=== PATIENT | female | born 1945 | race Caucasian/White ===

== ENCOUNTER → 2017-12-20 12:04 | Outpatient (CLI) | payer MEDICARE, SELFPAY | PROVIDERS: PCP Family Medicine; Visit Provider Surgery | DX: R19.4 Change in bowel habit (principal) | CPT/HCPCS: 99213 ==

== ENCOUNTER 2018-01-02 09:30 | Outpatient (RCR) | payer MEDICARE, SELFPAY ==
--- NOTE | 2017-12-05 09:45 | PTTR_ITS ---
DATE: 12/05/17 SUBJECTIVE: Ivet states that she's been feeling really good. She was able to spend the day at [facility] with her grandkids, and did not notice any fatigue or pain. She did have a difficult night, and had to take Tylenol for her pain. She continues to be unable to sleep in her bed due to discomfort. Compliant with HEP: x Yes No OBJECTIVE: Manual therapy: ([id number]). Patient received mobilization into knee extension, beginning with gentle overpressure and patella mobilizations. She received HS stretching and grade III PA tibiofemoral joint mobs, followed by further overpressure into extension. She's able to maintain about -2-3 degrees, and tolerates 0 with overpressure. Therapeutic procedures ([id number]). * x HEP review: * x See flow sheet: * x Provided skilled instruction in proper exercise performance: Progressed to addition of 2# med ball to squats, where she completed 2 sets of 10 with need for intermittent cues. She was also instructed in hip AB with use of Airex pad for proprioceptive retraining. * x Provided skilled manual cues to facilitate proper muscle recruitment and/ or movement pattern: Direct treatment time: 30 minutes Total treatment time: additional time spent with Elli Washington PTA
--- NOTE | 2017-12-05 09:53 | PTTR_ITS ---
DATE: 12/05/17 OBJECTIVE: Co treatment with Farhana Cordova DPT. Please see her note for specifics. Therapeutic procedures ([id number]). * X See flow sheet: Continued pt's LE strengthening program for knee rehab. No changes today per PT's instruction. * X Provided skilled instruction in proper exercise performance: Pt demonstrates good form. Minimal cueing for adjustment to technique. Direct treatment time: 15 minutes Total treatment time: 15 minutes
--- NOTE | 2017-12-10 12:09 | PTTR_ITS ---
DATE: 12/10/17 SUBJECTIVE: Pt reports feeling pretty good. OBJECTIVE: Therapeutic procedures ([id number]). * X HEP review: Pt reports that she has been practicing reciprocal stairs at home, as well as hip PRE's at her kitchen counter. * X See flow sheet: Continued LE strengthening including TKE, squats. * X Provided skilled instruction in proper exercise performance. * X Provided skilled manual cues to facilitate proper muscle recruitment and/ or movement pattern. * X Other: Pt to see Farhana Cordova DPT, in 7-10 days. Pt wants to discuss potentially beginning MSP in the clinic gym. Direct treatment time: 30 minutes Total treatment time: 30 minutes
--- NOTE | 2017-12-20 09:00 | PTTR_ITS ---
DATE: 12/20/17 SUBJECTIVE: Ivet states that her knee is feeling really good. She continues to struggle with sleeping, stating she cannot get comfortable in bed. She has been continuing with her exercise program, which she states is going well. Manual therapy: ([id number]). Ivet lacks approximately 5 degrees of knee extension. Her knee flexion usually allows 120. She has mild restriction of the patella mobility, particularly with superior glides. She received sustained stretching to the hamstrings and gastroc as well as manual over pressure into knee extension. She received grade 3 PA mobilizations all with excellent tolerance. We discuss appropriate treatment planning and goals and patient would like to transition to a minimally supervised program (MSP) prior to discharge with consideration of independent program in 3 weeks. She completed wellness with manufacturing support engineer non-billable time with instruction in appropriate set up for all activities. Will complete MSP 2x a for 3 weeks, then follow up with me for anticipated discharge at which point we can likely transition her to an independent program. We also reviewed self stretching techniques for extension and altered positions which she will attempt at home. Direct treatment time: 30 mins Total treatment time: 60 mins SS/dl
--- NOTE | 2018-01-02 08:50 | PTTR_ITS ---
DATE: 01/02/18 SUBJECTIVE: Ivet states that her knee has been really painful and she continues to struggle with sleeping and subsequently pulled out an old brace that she had. She has a patella stabilization brace with her with circumferential tabs around the patella. She states that the pressure from the tabs cause her a great deal of discomfort which has persisted since a few days ago. She references the pes anserine bursa region of the (R) knee and she reports that she is very discouraged by the progress and her inability to sleep. OBJECTIVE: Manual therapy: ([id number]). She only lacks about 5* of knee extension on the (R ), her flexion is full and pain free. Patella mobility is normal she is point tender at the pes anserine bursa on the (R). She received manual stretching to the hamstrings as well as grade 2 AP And PA tibial femoral joint mobilizations and patella mobs. She received sustained stretching into extension and with manual over pressure she is able to tolerate full knee extension. We discussed appropriate tx planning and goals and pt was encouraged to continue with MSP program 2x per week which she is in agreement with. We will have her complete that for 3 more weeks and we will follow with her at that time for re eval and progressions. Direct treatment time: 30 minutes Total treatment time: 30 minutes
== END 2018-01-03 23:59 | disposition home or self-care (01) ==
LOC: PT 09:30
PROVIDERS: PCP Family Medicine; Referring Provider Orthopaedic Surgery; Visit Provider Orthopaedic Surgery
DX: Z47.1 Aftercare following joint replacement surgery (principal); Z96.651 Presence of right artificial knee joint
CPT/HCPCS: 97110; 97140

== ENCOUNTER 2018-01-09 07:31 | Day surgery (SDC) | payer MEDICARE, SELFPAY ==
--- NOTE | 2018-01-09 07:11 | W.PM.DSUDISC ---
Discharge Plan Discharge Details Reason For Visit: CHANGE IN BOWEL HABITS Attending Provider: Jory King Primary Care Provider: Leeanne Schultz V Disposition Patient Disposition: HOME Condition: Fair Home Meds and New Rx's Prescriptions: Continue albuterol sulfate 2.5 MG/3 ML solution for nebulization 2.5 mg Inhalation [id number] Qty: 1 RF: 3 levothyroxine [Synthroid] 150 MCG tablet 150 mcg PO DAILY RF: 0 azelastine 137 MCG/0.137 ML aerosol,spray 2 spry NS BID RF: 0 estradiol [Climara] 1 EACH patch weekly 1 ea Transdermal RF: 0 budesonide-formoterol [Symbicort] 10.2 GM HFA aerosol inhaler 2 puff Inhalation BID RF: 0 PROVENTIL HFA 18 GM HFA.AER.AD 2 puff Inhalation Q6H PRN RF: 0 citalopram [Celexa] 40 MG tablet 40 mg PO .HS RF: 0 amlodipine 5 MG tablet 5 mg PO DAILY RF: 0 zolpidem 5 MG tablet 5 mg PO .HS RF: 0 bupropion HCl 300 MG tablet extended release 24 hr 300 mg PO DAILY RF: 0 clonazepam [Klonopin] 0.5 MG tablet 0.5 mg PO PRN PRNRF: 0 Discontinued bisacodyl [Bisa-Lax] 5 MG tablet,delayed release (DR/EC) 5 mg PO as directed Qty: 4 RF: 0 polyethylene glycol 3350 255 GM powder 255 gm PO as directed for colo Qty: 255 RF: 0 Discharge Instructions Instructions: Colonoscopy (DC) Additional Instructions: Findings: 1 polyp Follow up: depends on final pathology Diet: high fiber diet New Medications: none Please call if you develop: fevers >101.5 Nausea or Vomiting Abdominal pain that is not transient 1. Because there will be medication in your system for the next 24 hours, you may feel a little sleepy. Your coordination will be affected. Therefore: a. Do not drive or operate dangerous equipment for 24 hours. b. Do not drink alcohol beverages for 24 hours (not even beer). c. Plan to go home and rest for the day. 2. Generally there are no restrictions on your activity after a day or so has gone by, but you may feel a bit fatigued for a few days. 3 After you arrive home you may have a light meal and return to a normal diet as you can tolerate it without feeling sick to your stomach. 4. After surgery, you may feel pain or discomfort. This should be only transient, but if it persists please contact your doctor. 5. If there are any questions regarding the findings of your procedure, please feel free to contact your doctor. 6. If you are unable to contact your doctor with a problem, contact the hospital at [phone]. 7. Continue all your regular medications unless directed otherwise. I understand the above instructions and have no questions. Signature of Patient or Responsible Adult Escort Date/Time Name of Responsible Adult Escort Signature of Nurse Date/Time Activity:: Activity as Tolerated Diet:: As Tolerated Discharge Orders Discharge Orders: Discharge Order (Routine); Ordered 01/09/18 Ordered By: Jory King
--- NOTE | 2018-01-09 07:14 | PDOC.DSDIS_ITS ---
Discharge Plan Discharge Details Reason For Visit: CHANGE IN BOWEL HABITS Attending Provider: Jory King Primary Care Provider: Leeanne Schultz V Disposition Patient Disposition: HOME Condition: Fair Home Meds and New Rx's Prescriptions: Continue albuterol sulfate 2.5 MG/3 ML solution for nebulization 2.5 mg Inhalation [id number] Qty: 1 RF: 3 levothyroxine [Synthroid] 150 MCG tablet 150 mcg PO DAILY RF: 0 azelastine 137 MCG/0.137 ML aerosol,spray 2 spry NS BID RF: 0 estradiol [Climara] 1 EACH patch weekly 1 ea Transdermal RF: 0 budesonide-formoterol [Symbicort] 10.2 GM HFA aerosol inhaler 2 puff Inhalation BID RF: 0 PROVENTIL HFA 18 GM HFA.AER.AD 2 puff Inhalation Q6H PRN RF: 0 citalopram [Celexa] 40 MG tablet 40 mg PO .HS RF: 0 amlodipine 5 MG tablet 5 mg PO DAILY RF: 0 zolpidem 5 MG tablet 5 mg PO .HS RF: 0 bupropion HCl 300 MG tablet extended release 24 hr 300 mg PO DAILY RF: 0 clonazepam [Klonopin] 0.5 MG tablet 0.5 mg PO PRN PRNRF: 0 Discontinued bisacodyl [Bisa-Lax] 5 MG tablet,delayed release (DR/EC) 5 mg PO as directed Qty: 4 RF: 0 polyethylene glycol 3350 255 GM powder 255 gm PO as directed for colo Qty: 255 RF: 0 Discharge Instructions Instructions: Colonoscopy (DC) Additional Instructions: Findings: 1 polyp Follow up: depends on final pathology Diet: high fiber diet New Medications: none Please call if you develop: fevers >101.5 Nausea or Vomiting Abdominal pain that is not transient 1. Because there will be medication in your system for the next 24 hours, you may feel a little sleepy. Your coordination will be affected. Therefore: a. Do not drive or operate dangerous equipment for 24 hours. b. Do not drink alcohol beverages for 24 hours (not even beer). c. Plan to go home and rest for the day. 2. Generally there are no restrictions on your activity after a day or so has gone by, but you may feel a bit fatigued for a few days. 3 After you arrive home you may have a light meal and return to a normal diet as you can tolerate it without feeling sick to your stomach. 4. After surgery, you may feel pain or discomfort. This should be only transient , but if it persists please contact your doctor. 5. If there are any questions regarding the findings of your procedure, please feel free to contact your doctor. 6. If you are unable to contact your doctor with a problem, contact the hospital at [phone]. 7. Continue all your regular medications unless directed otherwise. I understand the above instructions and have no questions. Signature of Patient or Responsible Adult Escort Date/Time Name of Responsible Adult Escort Signature of Nurse Date/Time Activity:: Activity as Tolerated Diet:: As Tolerated Discharge Orders Discharge Orders: Discharge Order (Routine); Ordered 01/09/18 Ordered By: Jory King
[2018-01-09 07:53] VITALS: BP 131/77; PULSE 80; RESP 16; TEMP 36.5; O2SAT 99
[2018-01-09] MEDS: Lactated Ringers 1,000 ML 80 ML IV (08:00)
--- NOTE | 2018-01-09 08:31 | W.COLOREPORT ---
Colonoscopy Report Date of procedure: 01/09/18 Pre-op diagnosis general: Change in bowel habits Post-op diagnosis procedure note: other (transverse colon polyp) Procedure: Colonoscopy with polypectomy Anesthesia proc note operative: MAC Estimated blood loss (mL): 3 Pathology: other (transverse colon polyp) Complications: None Disposition: same day Indications: changes in bowel habits Prep: Miralax Procedure Start Time: 08:40 Procedure End Time: 09:09 Retraction Time: 15 minutes Findings: One polyp in the transverse colon Procedure Description: After informed consent was obtained the patient was taken to the procedure room and placed in the left decubitus position. Monitors were applied and a timeout was done. The patient's name date of procedure type allergies medications and metal in her body were all reviewed. Patient was then sedated. Once sedated and comfortable the rectal exam was done. External exam was normal. Internal exam revealed a normal sphincter tone and no palpable masses. The scope was then introduced and retroflexed no internal hemorrhoids were noted. The scope was straightened and advanced to the cecum. The patient did have a very tortuous colon. After applying pressure to her abdomen I was able to get the scope into the cecum. The TI and appendiceal orifice were both identified. The prep was adequate. The colonoscope was retracted all the way back into the rectum and removed. One pedunculated polyp was removed in the proximal transverse colon. The patient tolerated the procedure well and she was taken back to same day surgery in stable condition. There were no immediate complications.
--- NOTE | 2018-01-09 09:00 | BOWEL_PTH ---
PATIENT: Leeanne Bush LOC: [facility] U#:[id number] AGE/SX: 72/F ROOM: RE01/09/[address]: Jory King MD : 1945 BED: DIS: 01/09/2018 SPEC #: [id number] RECD: 01/09/18 13:01 STATUS: AAMIR REBre #: [id number] YUNG: 01/09/18 09:[address]: Jory King DEPT: Surgical Specimen RECD BY: Dorothea Mark ENTERED: 01/09/18 13:02 SP TYPE: Bowel OTHR DR: Leeanne Schultz V Tissues: 1 - BIOPSY BOWEL Procedures: GROSS AND MICRO LEVEL 4 Comments: [id number]
--- NOTE | 2018-01-09 09:44 | DI.RAD_ITS ---
SYMPTOM/DIAGNOSIS: ABD PAIN AFTER COLONOSCOPY, ? PERFORATION PORTABLE AP CHEST: Comparison is made with 03/13/14. The heart size is normal. The lungs show minimal scarring at the left base. No free air is seen beneath the diaphragm. No infiltrate or pneumothorax is present. IMPRESSION: Minimal left basilar scarring. No acute abnormality, FLAT AND DECUBITUS VIEWS OF THE ABDOMEN: Comparison is made with 09/18/09. The patient is status post colonoscopy. The colon is distended with air. No free air is identified. IMPRESSION: Colonic distension status post colonoscopy.
[2018-01-09 09:45] VITALS: BP 164/97; PULSE 80; RESP 22; TEMP 36; O2SAT 100
[2018-01-09] MEDS: Hyoscyamine 0.125 MG SL/ORAL/CHEW (09:47)
[2018-01-09] MEDS: Ketorolac 15 MG/ML VIAL IVP (10:02)
[2018-01-09 10:16] VITALS: BP 141/85; PULSE 76; RESP 18; TEMP 36; O2SAT 98
== END 2018-01-09 10:55 | disposition home or self-care (01) ==
LOC: SUR 07:31
PROVIDERS: PCP Family Medicine; Visit Provider Surgery
PROC: 0DJD8ZZ Inspection of Lower Intestinal Tract, Via Natural or Artificial Opening Endoscopic (ICD-10-PCS; CPT 45378; principal; 2018-01-09 08:20)
DX: R19.4 Change in bowel habit (principal); K63.5 Polyp of colon; K51.40 Inflammatory polyps of colon without complications; J44.9 Chronic obstructive pulmonary disease, unspecified; I10 Essential (primary) hypertension
CPT/HCPCS: 45380; 88305; 71045; 74019; J1885; J3490

== ENCOUNTER → 2018-01-09 08:14 | Outpatient (BNVA) | payer MEDICARE, SELFPAY | PROVIDERS: PCP Family Medicine; Visit Provider Surgery | DX: R19.4 Change in bowel habit (principal); K63.5 Polyp of colon; K51.40 Inflammatory polyps of colon without complications; J44.9 Chronic obstructive pulmonary disease, unspecified; I10 Essential (primary) hypertension ==

== ENCOUNTER 2018-01-10 08:18 | Inpatient (IN) | payer MEDICARE, SELFPAY ==
[2018-01-10 08:23] VITALS: BP 133/67; PULSE 84; RESP 16; TEMP 36.5; O2SAT 100
--- NOTE | 2018-01-10 08:26 | W.ED.GENAD ---
Discharge Plan Disposition Patient Disposition: [facility] Discharge Details Chief Complaint: GI Bleed Clinical Impression: Intra-abdominal free air of unknown etiology Reason For Visit: ABDOMINAL FREE AIR Admit Date/Time: 01/10/18 11:13 Admit Provider: Atul Sharpe Attending Provider: Atul Sharpe Primary Care Provider: Leeanne Schultz V ED Provider: Arnaldo Jackson Discharge Data Discharge Date/Time-TO BE ENTERED AT DEPARTURE: 01/10/18 11:56 Medical Decision Making MDM Narrative Medical decision making narrative: 72-year-old female presents with abdominal pain and bright red blood per rectum following colonoscopy with polypectomy yesterday. She is afebrile, essentially well-appearing and normotensive. She is somewhat tender in her abdomen. IV placed, labs obtained, patient referred for initial abdominal flat plate x-ray, CT of the abdomen and pelvis. Reviewed yesterday's chart and x-ray. Patient reviewed with Dr. Araujo. There is no evidence of free air. Patient was referred for CT images which does reveal free air surrounding the colon without evidence of abscess or fluid collection. Case discussed with on-call surgeon, Dr Sharpe, who agrees of antibiotics, admission. Patient is hemodynamically stable. Discussed plan with patient and her . Patient be admitted. Medical Records Medical records reviewed: Yes I reviewed the patient's medical records. Lab Data Lab results reviewed: Yes I reviewed the patient's lab results. ECG Data Attestation: I personally reviewed and interpreted this ECG (s) as follows: Interpretation: Normal sinus rhythm, rate of 74, QRS narrow, no ST segment elevation present HPI - General Adult General Mode of arrival: ambulatory. Date/Time Provider Initiated Documentation: 01/10/18 08:25. Limitations to Documentation: no limitations. Information obtained by: patient. History of Present Illness 72 year old F presents to the emergency department with the chief complaint of Abdominal pain and rectal bleed, described as moderate, Quality is described as dull and constant, and is localized to the abdomen. Patient started experiencing this hour(s) and it has been constant. No relieving factors improve symptom(s), No exacerbating factors reported . HPI Narrative: 72-year-old female presents with abdominal pain and rectal bleeding status post colonoscopy with single polypectomy in the transverse colon yesterday with Dr. King. She states that she had post procedure abdominal pain that required analgesia and for which she had postprocedure x-rays. She went home and states that she is has had constant, upper and abdominal pain since the procedure. Associated with tenesmus last night and an episode early this morning of bright red blood, 1 cup per rectum. This is followed by 3 further episodes of bright red blood per rectum. She has not had weakness, lightheadedness, syncope. She states that she has otherwise recently been well. No current anticoagulate Related Data Home Medications Medication Instructions Recorded Confirmed amlodipine 5 mg PO DAILY 01/22/13 01/10/18 bupropion HCl 300 mg PO DAILY 01/22/13 01/10/18 citalopram [Celexa] 40 mg PO .HS 01/22/13 01/10/18 zolpidem 5 mg PO .HS 01/22/13 01/10/18 clonazepam [Klonopin] 0.5 mg PO PRN PRN 03/13/14 01/10/18 Proventil Hfa 2 puff INHALATION Q6H PRN inhaler 11/22/17 01/10/18 NS albuterol sulfate 2.5 mg INHALATION [id number] #1 vial 11/22/17 01/10/18 NS azelastine 2 spry NS BID spray NS 11/22/17 01/10/18 budesonide-formoterol [Symbicort] 2 puff INHALATION BID inhaler NS 11/22/17 01/10/18 estradiol [Climara] 1 ea TRANSDERMAL DIRECTED 11/22/17 01/10/18 script NS levothyroxine [Synthroid] 150 mcg PO DAILY tab-cap NS 11/22/17 01/10/18 Allergies Allergy/AdvReac Type Severity Reaction Status Date / Time iopamidol AdvReac Intermediate Anaphylaxsi Unverified 01/10/18 08:32 s montelukast sodium AdvReac Intermediate Headache Unverified 01/10/18 08:32 [From Diannair] morphine AdvReac Intermediate Cardiac Unverified 01/10/18 08:32 Dysrythmia nitrofurazone AdvReac Mild Nausea Unverified 01/10/18 08:32 shrimp Allergy Severe Anaphylaxsi Uncoded 01/10/18 08:32 s Review of Systems Review of Systems 8 systems reviewed, otherwise negative PFSH Family History Other Constipation Medical History Abnormal finding on EKG Anxiety Depression Facial paresthesia Female bladder prolapse Fibromyalgia Hearing loss History of IBS Hypothyroid Insomnia Malignant melanoma Social History Smoking/Tobacco Use Status: Former Tobacco Use Surgical History Abdominal hysterectomy Arthroscopy, Shoulder Bladder Surgery Colonoscopy - MAC Replacement of total knee joint Exam Const General: cooperative, healthy appearing and comfortable Orientation: alert and awake Eyes General: appearance normal, both eyes and all related structures Visual Meredith: normal visual meredith by confrontation Chest Chest: normal inspection of the chest and normal palpation of entire chest wall Resp Effort & Inspection: normal respiratory effort and able to speak in complete sentences Auscultation: clear to auscultation bilaterally Cardio Rate: regular rate Rhythm: regular rhythm Heart Sounds: S1 normal and S2 normal GI Inspection: normal to inspection Palpation: soft and tender Rectal Exam - female: other (No masses. No active bleeding. There is violaceous blood that is guaiac positive.) Skin General skin exam: no rashes or lesions noted and elasticity normal Neuro General: alert, awake and oriented x3 Extrem General: normal to inspection and full ROM
--- NOTE | 2018-01-10 08:29 | ED.GENADUL_ITS ---
Discharge Plan Disposition Patient Disposition: [facility] INPATIENT Discharge Details Chief Complaint: GI Bleed Clinical Impression: Intra-abdominal free air of unknown etiology Reason For Visit: ABDOMINAL FREE AIR Admit Date/Time: 01/10/18 11:13 Admit Provider: Atul Sharpe Attending Provider: Atul Sharpe Primary Care Provider: Leeanne Schultz V ED Provider: Arnaldo Jackson Discharge Data Discharge Date/Time-TO BE ENTERED AT DEPARTURE: 01/10/18 11:56 Medical Decision Making MDM Narrative Medical decision making narrative: 72-year-old female presents with abdominal pain and bright red blood per rectum following colonoscopy with polypectomy yesterday. She is afebrile, essentially well-appearing and normotensive. She is somewhat tender in her abdomen. IV placed, labs obtained, patient referred for initial abdominal flat plate x- ray, CT of the abdomen and pelvis. Reviewed yesterday's chart and x-ray. Patient reviewed with Dr. Araujo. There is no evidence of free air. Patient was referred for CT images which does reveal free air surrounding the colon without evidence of abscess or fluid collection. Case discussed with on-call surgeon, Dr Sharpe, who agrees of antibiotics, admission. Patient is hemodynamically stable. Discussed plan with patient and her . Patient be admitted. Medical Records Medical records reviewed: Yes I reviewed the patient's medical records. Lab Data Lab results reviewed: Yes I reviewed the patient's lab results. ECG Data Attestation: I personally reviewed and interpreted this ECG (s) as follows: Interpretation: Normal sinus rhythm, rate of 74, QRS narrow, no ST segment elevation present HPI - General Adult General Mode of arrival: ambulatory . Date/Time Provider Initiated Documentation: 01/10/18 08:25 . Limitations to Documentation: no limitations . Information obtained by: patient . History of Present Illness 72 year old F presents to the emergency department with the chief complaint of Abdominal pain and rectal bleed, described as moderate, Quality is described as dull and constant, and is localized to the abdomen. Patient started experiencing this hour(s) and it has been constant. No relieving factors improve symptom(s), No exacerbating factors reported . HPI Narrative: 72-year-old female presents with abdominal pain and rectal bleeding status post colonoscopy with single polypectomy in the transverse colon yesterday with Dr. King. She states that she had post procedure abdominal pain that required analgesia and for which she had postprocedure x- rays. She went home and states that she is has had constant, upper and abdominal pain since the procedure. Associated with tenesmus last night and an episode early this morning of bright red blood, 1 cup per rectum. This is followed by 3 further episodes of bright red blood per rectum. She has not had weakness, lightheadedness, syncope. She states that she has otherwise recently been well. No current anticoagulate Related Data Home Medications Medication Instructions Recorded Confirmed amlodipine 5 mg PO DAILY 01/22/13 01/10/18 bupropion HCl 300 mg PO DAILY 01/22/13 01/10/18 citalopram [Celexa] 40 mg PO .HS 01/22/13 01/10/18 zolpidem 5 mg PO .HS 01/22/13 01/10/18 clonazepam [Klonopin] 0.5 mg PO PRN PRN 03/13/14 01/10/18 Proventil Hfa 2 puff INHALATION Q6H PRN inhaler 11/22/17 01/10/18 NS albuterol sulfate 2.5 mg INHALATION L3V-H5L #1 vial 11/22/17 01/10/18 NS azelastine 2 spry NS BID spray NS 11/22/17 01/10/18 budesonide-formoterol [Symbicort] 2 puff INHALATION BID inhaler NS 11/22/1711/20 estradiol [Climara] 1 ea TRANSDERMAL DIRECTED 11/22/17 01/10/18 script NS levothyroxine [Synthroid] 150 mcg PO DAILY tab-cap NS 11/22/17 01/10/18 Allergies Allergy/AdvReac Type Severity Reaction Status Date / Time iopamidol AdvReac Intermediate Anaphylaxsi Unverified 01/10/18 08:32 s montelukast sodium AdvReac Intermediate Headache Unverified 01/10/18 08:32 [From [facility]] morphine AdvReac Intermediate Cardiac Unverified 01/10/18 08:32 Dysrythmia nitrofurazone AdvReac Mild Nausea Unverified 01/10/18 08:32 shrimp Allergy Severe Anaphylaxsi Uncoded 01/10/18 08:32 s Review of Systems Review of Systems 8 systems reviewed, otherwise negative PFSH Family History Other Constipation Medical History Abnormal finding on EKG Anxiety Depression Facial paresthesia Female bladder prolapse Fibromyalgia Hearing loss History of IBS Hypothyroid Insomnia Malignant melanoma Social History Smoking/Tobacco Use Status: Former Tobacco Use Surgical History Abdominal hysterectomy Arthroscopy, Shoulder Bladder Surgery Colonoscopy - MAC Replacement of total knee joint Exam Const General: cooperative, healthy appearing and comfortable Orientation: alert and awake Eyes General: appearance normal, both eyes and all related structures Visual Meredith: normal visual meredith by confrontation Chest Chest: normal inspection of the chest and normal palpation of entire chest wall Resp Effort & Inspection: normal respiratory effort and able to speak in complete sentences Auscultation: clear to auscultation bilaterally Cardio Rate: regular rate Rhythm: regular rhythm Heart Sounds: S1 normal and S2 normal GI Inspection: normal to inspection Palpation: soft and tender Rectal Exam - female: other (No masses. No active bleeding. There is violaceous blood that is guaiac positive.) Skin General skin exam: no rashes or lesions noted and elasticity normal Neuro General: alert, awake and oriented x3 Extrem General: normal to inspection and full ROM
--- NOTE | 2018-01-10 08:46 | DI.CT_ITS ---
SYMPTOM/DIAGNOSIS: ABD PAIN, GI BLEED, S/P COLONOSCOPY ABDOMEN AND PELVIC CT: Comparison is made with 09/23/09. A small amount of free air is seen anterior to the liver. Numerous air bubbles are seen around the right colon, consistent with perforation. The colon is mainly fluid filled. There is some high density material in the cecum which could indicate an active arterial bleed. The appendix appears normal. There is no abscess formation or free fluid. The patient is status post hysterectomy. The bladder is unremarkable. There is no small bowel dilatation. The lung bases are clear. The liver, gallbladder, spleen, pancreas and adrenals are unremarkable. There is a horseshoe kidney. There are several small renal cysts. There is a nonobstructing stone at the lower pole of the right renal moiety. IMPRESSION: Multiple bubbles of free air seen around the right colon consistent with perforation. There is question of increased density in the region of the cecum which could represent an active area of hemorrhage. Correlation with the biopsy site is recommended.
[2018-01-10] MEDS: Normal Saline Flush 10 ML SYR IVP (08:55)
[2018-01-10] MEDS: Normal Saline 1,000 ML 125 ML IV ×2 (09:10→16:25)
[2018-01-10 09:11] LABS: Abs Immature Grans 0.01 k/cumm (0.0-0.09); Absolute Basophil Count 0.02 k/cumm (0.0-0.2); Absolute Eosinophil Count 0.21 k/cumm (0.0-0.7); Absolute Lymphocyte Count 1.41 k/cumm (1.2-3.4); Absolute Monocyte Count 0.87 k/cumm (0.11-0.7); Absolute Neutrophil Count 6.29 k/cumm (1.2-6.7); Basophils % 0.2; Eosinophils % 2.4; HCT 32.3 % (36.0-46.0); HGB 10.3 g/dL (12.0-15.5); Immature Grans % 0.1; Mean Corp. HGB Concentration 31.9 g/dL (32.0-36.0); Mean Corpuscular Hemoglobin 31.2 pg (27.0-33.0); Mean Corpuscular Volume 97.9 fL (80-95); Mean Platelet Volume 9.1 fL (8.0-11.0); Monocytes % 9.9; Neutrophils % 71.4; Platelet Count 313 x1000/uL (130-400); RBC Distribution Width 13.6 % (11.7-14.6); White Blood Cell Count 8.81 k/cumm (4.4-10.8)
--- NOTE | 2018-01-10 09:19 | DI.RAD_ITS ---
SYMPTOM/DIAGNOSIS: ABD PAIN, POLYPECTOMY FLAT AND UPRIGHT ABDOMEN; Comparison is made with the previous day's exam. There are now multiple small air bubbles seen around the right colon and a questionable small lucency beneath the diaphragm. There is no abnormal bowel distension. Small air fluid levels are seen which could be related to the transverse colon. There is less colonic distension when compared with the previous day's exam. IMPRESSION: Multiple bubbles of free air around the right colon, consistent with perforation.
[2018-01-10 09:25] LABS: Prothrombin Time 9.8 sec (9.3-10.8)
[2018-01-10 09:28] LABS: BUN 20 mg/dL (7-18); CREATININE 0.77 mg/dL (0.55-1.02); Calcium 7.9 mg/dL (8.5-10.1); Glucose 86 mg/dL (70-100)
[2018-01-10 09:29] LABS: ALT 17 U/L (12-78); AST 14 U/L (15-37); Albumin 3.3 g/dL (3.4-5.0); Alkaline Phosphatase 67 U/L (46-116); Anion Gap 4.8 mmol/L (3-11); Bilirubin, Total 0.4 mg/dL (0.2-1.0); CO2 28.2 mmol/L (21.0-32.0); Chloride 104 mmol/L (98-107); Potassium 4.2 mmol/L (3.5-5.1); Sodium 137 mmol/L (136-145); Total Protein 6.2 g/dL (6.4-8.2)
[2018-01-10] MEDS: Omnipaque 350 MG/ML 100 ML BTL IJ (10:25)
[2018-01-10 11:30] VITALS: BP 136/63; PULSE 84; RESP 14; TEMP 37.2; O2SAT 100
[2018-01-10 11:40] VITALS: BP 136/63; PULSE 84; RESP 14; TEMP 37.2; O2SAT 100
[2018-01-10 12:13] VITALS: BP 143/72; PULSE 76; RESP 16; TEMP 36.9; O2SAT 100
[2018-01-10 13:09] VITALS: BP 143/72; PULSE 76; RESP 16; TEMP 36.4; O2SAT 100
--- NOTE | 2018-01-10 15:10 | HPE_ITS ---
Date of service: 01/10/18 Time of Service: 15:08 Assessment and Plan (1) Perforation of colon as colonoscopy complication: Current visit: Yes Status: Acute A - 72 y/o female s/p colonoscopy with polypectomy on 01/09/18. Patient has free air on imaging indicating colonic perforation presumably at the polypectomy site. She also had reported hematochezia presumably from the polypectomy site. She has had no further bowel movement or hematochezia since admission. Rectal bleeding has presumably stopped. Discussed with patient that blood in the bowel usually acts as a laxative. Suspect the perforation was tiny and has likely sealed as the patient is not septic and there is no significant fluid or large air collection on imaging. She looks well approximately 30 hours post-procedure. P - Discussed plan of care and rationale with the patient. Will plan on NPO/ bowel rest, IVF, and broad-spectrum antibiotic coverage for the colon and her recent knee surgery. Will follow-up AXR, CBC, CMP in the am. No plans for surgery at this time, as she is hemodynamically and clinically stable and I suspect the perforation is sealed and healing. If she remains stable, will plan on resuming po in 1-2 days. Will continue to monitor. Will make further recommendations pending her clinical course. Patient initially requested transfer to [facility] in case she does need to have surgery. Per her request, I contacted the Transfer Center and provided them with her information. Per the Transfer Center, there are no beds available at [facility] except for emergent and urgent cases. The patient is clinically stable at this time. This information was relayed to the patient. Plan of care here at [facility] as outlined above was again reiterated with the patient and her daughter who is now present at the bedside. Patient indicates that she now wishes to stay at [facility]. All questions answered. Patient agreeable with plans as outlined above. Patient's nurse present at bedside for this discussion. History of Present Illness Chief Complaint: Hematochezia Narrative: 72 y/o female who underwent an outpatient colonoscopy on 01/09/[address] Lott. Colonoscopy was performed for change in bowel habits. Patient reports a h/o IBS. Per colonoscopy report, she had a pedunculated polyp in the proximal transverse colon which was removed. Post-procedure, she noted abdominal pain, primarily in the upper abdomen, and nausea. Abdominal xrays were obtained, which did not demonstrate any free air. Patient's symptoms improved and she was discharged home. Overnight, she notes that she passed blood and clots per rectum. She had some nausea but no emesis. She came to the ED this am. AXR and CT abd/pelvis in the ED demonstrated free air with small bubbles of air by the right colon. No free fluid or collection was noted. Patient hemodynamically stable in the ED. WBC WNL. She denies any nausea or abdominal pain at this time. She notes only some mild tenderness on palpation. She denies lightheadedness or dizziness. Patient notes that she had a right total knee replacement about 11 weeks ago. She is concerned re: antibiotic coverage for her knee. Review of Systems Review of Systems All systems reviewed & are unremarkable except as noted in HPI and below Constitutional Denies chills and Denies fever(s) ENT Denies dizziness Gastrointestinal Reports abdominal pain, Reports hematochezia, Reports nausea and Denies vomiting Genitourinary Denies hematuria and Denies dysuria Neurologic Denies dizziness and Denies seizure-like activity PFSH Family History Other Constipation Medical History Abnormal finding on EKG Anxiety Depression Facial paresthesia Female bladder prolapse Fibromyalgia Hearing loss History of IBS Hypothyroid Insomnia Malignant melanoma Social History household members: spouse Smoking/Tobacco Use Status: Former Tobacco Use alcohol intake: current alcohol intake frequency: 0-2 drinks per day Alcohol type: wine substance use type: does not use Surgical History Abdominal hysterectomy Arthroscopy, Shoulder Bladder Surgery Colonoscopy - MAC Replacement of total knee joint Meds Home Medications Medication Instructions Recorded Confirmed Type amlodipine 5 mg PO DAILY 01/22/13 01/10/18 History bupropion HCl 300 mg PO DAILY 01/22/13 01/10/18 History citalopram [Celexa] 40 mg PO .HS 01/22/13 01/10/18 History zolpidem 5 mg PO .HS 01/22/13 01/10/18 History clonazepam [Klonopin] 0.5 mg PO PRN PRN 03/13/14 01/10/18 History Proventil Hfa 2 puff INHALATION Q6H PRN inhaler 11/22/17 01/10/18 History NS albuterol sulfate 2.5 mg INHALATION [id number]-[id number] #1 vial 11/22/17 01/10/18 History NS azelastine 2 spry NS BID spray NS 11/22/17 01/10/18 History budesonide-formoterol [Symbicort] 2 puff INHALATION BID inhaler NS 11/22/1711/20 History estradiol [Climara] 1 ea TRANSDERMAL DIRECTED 11/22/17 01/10/18 History script NS levothyroxine [Synthroid] 150 mcg PO DAILY tab-cap NS 11/22/17 01/10/18 History Allergies Allergy/AdvReac Type Severity Reaction Status Date / Time iopamidol AdvReac Intermediate Anaphylaxsi Unverified 01/10/18 08:32 s montelukast sodium AdvReac Intermediate Headache Unverified 01/10/18 08:32 [facility] morphine AdvReac Intermediate Cardiac Unverified 01/10/18 08:32 Dysrythmia nitrofurazone AdvReac Mild Nausea Unverified 01/10/18 08:32 shrimp Allergy Severe Anaphylaxsi Uncoded 01/10/18 08:32 s Exam Const General: cooperative, healthy appearing, comfortable and no acute distress Nutritional Appearance: average body habitus Orientation: alert and oriented x3 Eyes General: appearance normal, both eyes and all related structures Sclera: sclerae normal Resp Effort & Inspection: normal respiratory effort and able to speak in complete sentences Cardio Jugular venous pressure: no JVD Rate: regular rate GI Inspection: non-distended Palpation: soft, not firm, no guarding, no masses, not rigid and tender ( diffusely mildly tender to palpation) with no rebound tenderness Skin General skin exam: no rashes or lesions noted and no jaundice Neuro General: alert and oriented x3 Speech: speech normal Psych Appearance: grossly normal Mental Status: mental status grossly normal Results Labs : 01/10/18 08:50 01/10/18 08:50 Abnormal lab results 01/10/18 01/10/18 Range/Units 08:50 08:50 RBC 3.30 L (4.00-5.20) m/cumm Hgb 10.3 L (12.0-15.5) g/dL Hct 32.3 L (36.0-46.0) % MCV 97.9 H (80-95) fL MCHC 31.9 L (32.0-36.0) g/dL Absolute Monocytes 0.87 H (0.11-0.7) k/cumm BUN 20 H (7-18) mg/dL Calcium 7.9 L (8.5-10.1) mg/dL AST 14 L (15-37) U/L Total Protein 6.2 L (6.4-8.2) g/dL Albumin 3.3 L (3.4-5.0) g/dL Diabetes panel 01/10/18 Range/Units 08:50 Sodium 137 (136-145) mmol/L Potassium 4.2 (3.5-5.1) mmol/L Chloride 104 (98-107) mmol/L Carbon Dioxide 28.2 (21.0-32.0) mmol/L BUN 20 H (7-18) mg/dL Creatinine 0.77 (0.55-1.02) mg/dL Glucose 86 (70-100) mg/dL Calcium 7.9 L (8.5-10.1) mg/dL AST 14 L (15-37) U/L ALT 17 (12-78) U/L Alkaline Phosphatase 67 (46-116) U/L Total Protein 6.2 L (6.4-8.2) g/dL Albumin 3.3 L (3.4-5.0) g/dL Calcium panel 01/10/18 Range/Units 08:50 Calcium 7.9 L (8.5-10.1) mg/dL Albumin 3.3 L (3.4-5.0) g/dL Pituitary panel 01/10/18 Range/Units 08:50 Sodium 137 (136-145) mmol/L Potassium 4.2 (3.5-5.1) mmol/L Chloride 104 (98-107) mmol/L Carbon Dioxide 28.2 (21.0-32.0) mmol/L BUN 20 H (7-18) mg/dL Creatinine 0.77 (0.55-1.02) mg/dL Glucose 86 (70-100) mg/dL Calcium 7.9 L (8.5-10.1) mg/dL Adrenal panel 01/10/18 Range/Units 08:50 Sodium 137 (136-145) mmol/L Potassium 4.2 (3.5-5.1) mmol/L Chloride 104 (98-107) mmol/L Carbon Dioxide 28.2 (21.0-32.0) mmol/L BUN 20 H (7-18) mg/dL Creatinine 0.77 (0.55-1.02) mg/dL Glucose 86 (70-100) mg/dL Calcium 7.9 L (8.5-10.1) mg/dL Total Bilirubin 0.4 (0.2-1.0) mg/dL AST 14 L (15-37) U/L ALT 17 (12-78) U/L Alkaline Phosphatase 67 (46-116) U/L Total Protein 6.2 L (6.4-8.2) g/dL Albumin 3.3 L (3.4-5.0) g/dL Laboratory Tests 01/10/18 01/10/18 01/10/18 08:50 08:50 08:50 WBC RBC Hgb Hct MCV MCH MCHC RDW Plt Count MPV Immature Gran % Neutrophils % Lymphocytes % Monocytes % Eosinophils % Basophils % Absolute Neutrophils Absolute Lymphocytes Absolute Monocytes Absolute Eosinophils Absolute Basophils PT 9.8 INR 1.0 Sodium 137 Potassium 4.2 Chloride 104 Carbon Dioxide 28.2 Anion Gap 4.8 BUN 20 H Creatinine 0.77 Estimated GFR/1.73 m2 >= 60.00 Glucose 86 Calcium 7.9 L Total Bilirubin 0.4 AST 14 L ALT 17 Alkaline Phosphatase 67 Total Protein 6.2 L Albumin 3.3 L Patient ABO/Rh A Negative Antibody Screen Negative 01/10/18 08:50 WBC 8.81 RBC 3.30 L Hgb 10.3 L Hct 32.3 L MCV 97.9 H MCH 31.2 MCHC 31.9 L RDW 13.6 Plt Count 313 MPV 9.1 Immature Gran % 0.1 Neutrophils % 71.4 Lymphocytes % 16.0 Monocytes % 9.9 Eosinophils % 2.4 Basophils % 0.2 Absolute Neutrophils 6.29 Absolute Lymphocytes 1.41 Absolute Monocytes 0.87 H Absolute Eosinophils 0.21 Absolute Basophils 0.02 PT INR Sodium Potassium Chloride Carbon Dioxide Anion Gap BUN Creatinine Estimated GFR/1.73 m2 Glucose Calcium Total Bilirubin AST ALT Alkaline Phosphatase Total Protein Albumin Patient ABO/Rh Antibody Screen
[2018-01-10 16:20] VITALS: BP 156/73; PULSE 88; RESP 18; TEMP 37.3; O2SAT 99
--- NOTE | 2018-05-08 18:11 | DSE_ITS ---
DATE OF ADMISSION: January 10, 2018 DATE OF DISCHARGE: January 10, 2018 FINAL DIAGNOSIS: Perforation of colon status post colonoscopy. DISPOSITION: Patient left against medical advice. HOSPITAL COURSE: This is a 72-year-old female who had undergone an outpatient colonoscopy with polyp ectomy on 01/09/[address] King. Colonoscopy was performed to evaluate for a change in bowel habit s. The patient reportedly has a history of IBS. She had a pedunculated polyp in the proximal transv erse colon which was removed at the time of endoscopy. Postprocedure she was noted to have some abdo cassie pain, primarily in the upper abdomen, and associated nausea. Abdominal x-rays were obtained bu t did not demonstrate any free air. Her symptoms improved and she was discharged home. She returned to the hospital on 01/10/18. She presented to the ED with complaints of nausea and having passed some blood and clots per rectum. Abdominal x-rays, CT abdomen and pelvis in the ED demonstra rinku free air with small bubbles of air by the right colon. No free fluid or collection was noted. T he patient was hemodynamically stable. On admission her white blood cell count was within normal huntley its. She denied any nausea of abdominal pain. At the time of her evaluation for her admission Histo ry and Physical she noted only some mild tenderness on palpation. She denied any lightheadedness or dizziness. The patient was concerned regarding antibiotic coverage for a recent total knee replaceme nt about 11 weeks prior to her endoscopy. We had discussed the plan of care and the rationale for it including n.p.o. status, bowel rest, IV fl uids, and broad-spectrum antibiotic coverage. Plans were made to obtain follow-up abdominal x-ray an d labs in the morning. There was no plan for urgent surgical intervention as she was hemodynamically and clinically stable. I discussed with the patient I suspected that her perforation had sealed and was healing. The patient initially requested transfer to [facility]. Per her request, I did speak with the [facility] and was informed that no beds were available except for emergent and urgent cases. Followin g my conversation with the patient, she indicated that she did wish to remain at [facility]. However, subs equent to this, she apparently discussed this further with her family and felt that she would be more comfortable at [facility]. The patient, therefore, signed out AMA, with the intention of transportin angela herself to [facility]. FOLLOW-UP CARE: The patient already had a follow-up appointment with Dr. King status post colonos copy.
== END 2018-01-10 17:05 | disposition left against medical advice (07) | DRG 920 ==
LOC: ER 11:55 → MS 12:03
PROVIDERS: Admitting Provider Surgery; Emergency Provider Emergency Medicine; PCP Family Medicine; Visit Provider Surgery
DX: K91.71 Accidental puncture and laceration of a digestive system organ or structure during a digestive system procedure (principal); K92.1 Melena; Y83.8 Other surgical procedures as the cause of abnormal reaction of the patient, or of later complication, without mention of misadventure at the time of the procedure; Y92.234 Operating room of hospital as the place of occurrence of the external cause; K58.9 Irritable bowel syndrome, unspecified; Z96.651 Presence of right artificial knee joint; F41.8 Other specified anxiety disorders; E03.9 Hypothyroidism, unspecified
CPT/HCPCS: 36415; 80053; 86850; 86900; 86901; 93005; 96361; 96365; 99222; 99235; 99285; 74019; 74177; 85025; 85610; 93010; J1335; J3490

== ENCOUNTER 2018-04-16 13:17 | Outpatient (CLI) | payer MEDICARE, SELFPAY ==
[2018-04-16 13:52] LABS: HGB 12.2 g/dL (12.0-15.5); Mean Corp. HGB Concentration 31.3 g/dL (32.0-36.0); Mean Corpuscular Hemoglobin 29.9 pg (27.0-33.0); Mean Corpuscular Volume 95.6 fL (80-95); Mean Platelet Volume 9.2 fL (8.0-11.0); Platelet Count 339 x1000/uL (130-400); RBC 4.08 m/cumm (4.00-5.20); RBC Distribution Width 13.6 % (11.7-14.6); White Blood Cell Count 4.59 k/cumm (4.4-10.8)
[2018-04-16 14:44] LABS: FREE T4 1.79 ng/dL (0.76-1.46); TSH 0.14 uIU/mL (0.358-3.74)
== END 2018-04-16 13:37 ==
PROVIDERS: PCP Family Medicine; Visit Provider Family Medicine
DX: E03.9 Hypothyroidism, unspecified (principal); D64.9 Anemia, unspecified
CPT/HCPCS: 36415; 85027; 84439; 84443

== ENCOUNTER 2019-02-10 16:46 | Outpatient (REF) | payer MEDICARE, SELFPAY ==
[2019-02-10 21:28] LABS: TSH (W/Ref FT4) 2.16 uIU/mL (0.36-3.74)
== END 2019-02-10 17:06 ==
LOC: NCHCN 16:46
PROVIDERS: PCP Family Medicine; Visit Provider Family Medicine
DX: E03.9 Hypothyroidism, unspecified (principal)
CPT/HCPCS: 84443

== ENCOUNTER 2019-10-01 17:50 | Outpatient (REF) | payer MEDICARE, SELFPAY ==
[2019-10-01 19:11] LABS: Bilirubin Negative (Negative); Blood Negative (Negative); Clarity Clear (Clear); Glucose Negative (Negative); Ketones Negative (Negative); Leukocyte Esterase Negative (Negative); Nitrite Negative (Negative); Specific Gravity >= 1.030 (1.005-1.025); Urobilinogen 0.2 EU/dL (Up TO 0.2)
== END 2019-10-01 18:10 ==
LOC: NCHCN 17:50
PROVIDERS: PCP Family Medicine; Visit Provider Family Medicine
DX: R10.32 Left lower quadrant pain (principal)
CPT/HCPCS: 81003

== ENCOUNTER 2019-10-06 11:03 | Outpatient (REF) | payer MEDICARE, SELFPAY ==
[2019-10-06 19:20] LABS: ALT 20 U/L (14-59); AST 17 U/L (15-37); Albumin 4.3 g/dL (3.4-5.0); Alkaline Phosphatase 68 U/L (46-116); Anion Gap 5.5 mmol/L (3-11); BUN 20 mg/dL (7-18); Bilirubin, Total 0.3 mg/dL (0.2-1.0); C-Reactive Protein < 0.05 mg/dL (0.0-0.3); CO2 30.5 mmol/L (21.0-32.0); CREATININE 0.97 mg/dL (0.55-1.02); Calcium 9.3 mg/dL (8.5-10.1); Chloride 102 mmol/L (98-107); Estimated GFR 56.29 (mL/min/1.73m2); Glucose 89 mg/dL (74-106); Potassium 5.6 mmol/L (3.5-5.1); Sodium 138 mmol/L (136-145); Total Protein 7.4 g/dL (6.4-8.2)
[2019-10-06 19:34] LABS: HCT 41.5 % (36.0-46.0); HGB 13.2 g/dL (12.0-15.5); Mean Corp. HGB Concentration 31.8 g/dL (32.0-36.0); Mean Corpuscular Hemoglobin 30.8 pg (27.0-33.0); Mean Corpuscular Volume 96.7 fL (80-95); Mean Platelet Volume 9.6 fL (8.0-11.0); Platelet Count 440 x1000/uL (130-400); RBC 4.29 m/cumm (4.00-5.20); RBC Distribution Width 13.1 % (11.7-14.6); White Blood Cell Count 5.23 k/cumm (4.4-10.8)
== END 2019-10-06 11:23 ==
LOC: NCHCN 11:03
PROVIDERS: PCP Family Medicine; Visit Provider Family Medicine
DX: R10.32 Left lower quadrant pain (principal)
CPT/HCPCS: 80053; 85027; 86140

== ENCOUNTER 2019-10-09 01:29 | Outpatient (CLI) | payer MEDICARE, SELFPAY ==
--- NOTE | 2019-10-09 | DI.CT_ITS ---
EXAM: CT ABDOMEN PELVIS W CLINICAL HISTORY: LLQ ABD PAIN,R10.32 COMPARISON: CT CHEST WITH CONTRAST from 10/24/2016 FINDINGS: CT examination of the abdomen and pelvis was performed with a bolus infusion of 100 cc of Omnipaque 350. Images obtained through the lung bases are unremarkable. Liver and spleen appear normal. Gall bladder and bile ducts are CT normal. Pancreas appears intact. No significant abdominal wall hernia seen. No abdominal or pelvic adenopathy. There is a horseshoe kidney. There is no hydronephrosis. There is nonobstructing right renal calcul us. 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 No evidence of ureterolithiasis. Urinary bladd er appears intact. No focal bowel pathology identified. Appendix is nonvisualized but there is no evidence of appendici tis or diverticulitis. Abdominal aorta is of normal diameter and major visceral vessels appear intact. Uterus is atrophic or absent. Please correlate clinically. IMPRESSION: Horseshoe kidney with nonobstructing right renal calculus and left upper pole angiomyolipoma. No evidence of acute process.
[2019-10-09] MEDS: Breeza Beverage 473 ML BTL PO ×2 (07:33→07:38)
[2019-10-09] MEDS: Omnipaque 350 MG/ML 50 ML BTL PO (07:37)
[2019-10-09] MEDS: Normal Saline - Diluent 50 ML VIAL IV (09:41)
[2019-10-09] MEDS: Omnipaque 350 MG/ML 100 ML BTL IJ (09:41)
[2019-10-09] MEDS: Normal Saline Flush 10 ML SYR IVP (09:43)
== END 2019-10-09 01:49 ==
PROVIDERS: PCP Family Medicine; Visit Provider Family Medicine
DX: R10.32 Left lower quadrant pain (principal); N20.0 Calculus of kidney; D17.72 Benign lipomatous neoplasm of other genitourinary organ
CPT/HCPCS: 74177; J3490; Q9967

== ENCOUNTER 2020-03-15 12:13 | Outpatient (REF) | payer MEDICARE, SELFPAY ==
[2020-03-15 19:52] LABS: FREE T4 1.33 ng/dL (0.76-1.46); TSH 0.33 uIU/mL (0.36-3.74)
== END 2020-03-15 12:33 ==
LOC: NCHCN 12:13
PROVIDERS: PCP Family Medicine; Visit Provider Family Medicine
DX: E03.9 Hypothyroidism, unspecified (principal)
CPT/HCPCS: 84439; 84443

== ENCOUNTER 2020-05-17 00:55 | Outpatient (CLI) | payer MEDICARE, SELFPAY ==
[2020-05-17 08:09] LABS: ALT 17 U/L (14-59); AST 18 U/L (15-37); Alkaline Phosphatase 60 U/L (46-116); Anion Gap 6.6 mmol/L (3-11); BUN 13 mg/dL (7-18); Bilirubin, Total 0.3 mg/dL (0.2-1.0); CO2 29.4 mmol/L (21.0-32.0); Calcium 8.8 mg/dL (8.5-10.1); Chloride 104 mmol/L (98-107); Estimated GFR 48.69 (mL/min/1.73m2); Glucose 86 mg/dL (74-106); Lipase 205 U/L (73-393); Potassium 4.1 mmol/L (3.5-5.1); Sodium 140 mmol/L (136-145); Total Protein 7.1 g/dL (6.4-8.2)
[2020-05-17] MEDS: Breeza Beverage 473 ML BTL PO ×2 (08:34→08:37)
[2020-05-17] MEDS: Omnipaque 350 MG/ML 50 ML BTL PO (08:37)
--- NOTE | 2020-05-17 09:13 | DI.CT_ITS ---
EXAM: CT ABDOMEN PELVIS W CLINICAL HISTORY: EPIGASTRIC ABD PAIN,R10.13. TECHNIQUE: Imaging Protocol: Axial computed tomography images with coronal and sagittal reformatted images were created and reviewed CONTRAST MATERIAL: Intravenous: Omnipaque 350 Contrast volume:100ml Oral: yes / COMPARISON: 09 October 2019 FINDINGS: ABDOMEN: Lung Bases: Normal where visualized. Liver: Normal density. No measurable mass. Gallbladder and biliary tract: No radiodense calculus or dilation. Pancreas: Normal density, no abnormal calcifications or inflammatory process. Spleen: Normal. Kidneys: Horseshoe kidney. Multiple small cysts. Fatty attenuation lesion at the superior pole of t he left moiety, likely angiomyolipoma. There is a 3 millimeter stone in the right renal pelvis which is nonobstructing. Adrenal glands: No masses seen. Abdominal Aorta: Abdominal portion non-dilated. PELVIS: Bladder: Symmetric distention, no gross wall thickening. Bowel: Stomach not well distended with contrast. Not well evaluated. Moderate quantity of stool. N o obstruction or bowel wall thickening. Peritoneal cavity: No ascites, collection or mesenteric inflammatory response. Bones: Within normal limits. Reproductive organs: Status post hysterectomy. Lymph nodes: Unremarkable. Impression: Horseshoe kidney. No evidence of hydronephrosis. Nonobstructing right sided stone. No acute abnorm ality. RADIATION DOSE DELIVERED: 825.47mGy.cm Total DLP DATA REPOSITORY: All CT scans at this facility are submitted to the National Radiology Data Registry (NRDR) Dose Index Registry (DIR) with the [employer] (A[employer]). RADIATION OPTIMIZATION: All CT scans at this facility use at least one of these dose optimization te chniques: automated exposure control; mA and/or kV adjustment per patient size (includes targeted exa ms where dose is matched to clinical indication); or iterative reconstruction.
[2020-05-17] MEDS: Normal Saline - Diluent 50 ML VIAL IV (09:16)
[2020-05-17] MEDS: Omnipaque 350 MG/ML 100 ML BTL IJ (09:16)
[2020-05-17] MEDS: Normal Saline Flush 10 ML SYR IVP (09:17)
== END 2020-05-17 01:15 ==
PROVIDERS: PCP Family Medicine; Visit Provider Family Medicine
DX: R10.13 Epigastric pain (principal); Q63.1 Lobulated, fused and horseshoe kidney
CPT/HCPCS: 80053; 83690; 74177; J3490; Q9967

== ENCOUNTER 2020-05-20 04:34 | Outpatient (CLI) | payer MEDICARE, SELFPAY ==
--- NOTE | 2020-05-20 11:00 | DI.MAMMO_ITS ---
EXAM: MG MAMMO SCREENING CLINICAL HISTORY: SCREENING, [facility],Z00.00. TECHNIQUE: Bilateral full field digital CC and MLO mammographic images were obtained with 3D tomosyn thesis and utilizing computer aided detection (CAD). COMPARISON: Prior mammograms dating back to 2010, the most recent being August 2015. FINDINGS: There are no spiculated masses nor malignant appearing microcalcification groups. There is no signif icant architectural distortion nor skin thickening-retraction. IMPRESSION: No radiographic evidence of malignancy. BI-RADS Category 1 - Negative Breast Density - Category B - Scattered areas of fibroglandular density Breast density Category C or D implies that the patient has dense breast tissue. Dense breast tissue can make it harder to find cancer on a mammogram. Dense breast tissue is also associated with an incr eased risk of breast cancer. This information about the result of the mammogram report was provided to the patient to raise their awareness. Use this report when you speak with the patient about their risks for breast cancer, which includes their family history. At that time, you may recommend additional screening tests (Ultrasoun d or MRI) as these tests may add significant information. A negative radiographic report should not delay biopsy if a dominant or clinically suspicious mass is present. Up to ten percent of cancers are not identified on mammography. A negative report may reinforce clinical impression. Adenosis and dense breasts may obscure an underlying neoplasm. False positive reports average 6 to 10%. Patient will receive a letter notifying them of these results.
== END 2020-05-20 04:54 ==
PROVIDERS: PCP Family Medicine; Visit Provider Family Medicine
DX: Z12.31 Encounter for screening mammogram for malignant neoplasm of breast (principal); Z00.00 Encounter for general adult medical examination without abnormal findings
CPT/HCPCS: 77063; 77067

== ENCOUNTER 2020-05-20 20:54 | Outpatient (REF) | payer MEDICARE, SELFPAY ==
[2020-05-23 12:16] LABS: IgA 135 mg/dL (85-499); Interpretation (See Note); Tissue Transglutaminase IgA <1.2 U/mL (<4.0)
== END 2020-05-20 21:14 ==
LOC: NCHCN 20:54
PROVIDERS: PCP Family Medicine; Visit Provider Family Medicine
DX: R10.13 Epigastric pain (principal)
CPT/HCPCS: 82784; 83516

== ENCOUNTER 2020-11-11 11:46 | Emergency (ER) | payer MEDICARE, SELFPAY ==
[2020-11-11] VITALS (29 sets, daily range): BP systolic 115–139; BP diastolic 60–76; PULSE 60–79; RESP 10–31; TEMP 36.6; O2SAT 95–100
--- NOTE | 2020-11-11 11:45 | RT.EKG_ITS ---
APPROVED REPORT Exam: Resting ECG Reason for Exam: Chest Pain Patient Location: E HR:67 bpm ECG Measurements Heart Rate 67 AXIS [place] 209 P 70 QRSd 87 QRS -59 QT 421 T 39 QTc 444 Conclusion Sinus rhythm...normal P axis, V-rate 60- 99 Inferior infarct, old...Q >35mS, II III aVF no stemi
--- NOTE | 2020-11-11 13:00 | DI.RAD_ITS ---
Exam(s) XR CHEST 2V PA LATERAL EXAM: XR CHEST 2V PA LATERAL CLINICAL HISTORY: chest pain TECHNIQUE: 2D digital imaging was performed. COMPARISON: CR XR PORTABLE CHEST AP from 01/09/2018 FINDINGS: MEDIASTINUM: Normal. HEART: Normal. PULMONARY VASCULATURE: Normal. LUNGS: Clear. PLEURAL SPACE: No pleural effusion or pneumothorax. BONE:Unremarkable for age. IMPRESSION: No acute abnormality. DATA REPOSITORY: RADIATION DOSE DELIVERED:
[2020-11-11 13:17] LABS: Absolute Basophil Count 0.05 10^3/uL (0.0-0.2); Absolute Eosinophil Count 0.24 10^3/uL (0.0-0.7); Absolute Lymphocyte Count 1.62 10^3/uL (1.2-3.4); Absolute Monocyte Count 0.41 10^3/uL (0.1-0.8); Absolute Neutrophil Count 1.76 10^3/uL (1.2-6.7); Basophils % 1.2; Eosinophils % 5.9; HCT 35.7 % (36.0-46.0); HGB 11.2 g/dL (11.2-15.7); Lymphocytes % 39.7; MCH 30.6 pg (27.0-33.0); MCHC 31.4 % (32.0-36.0); MCV 97.5 fL (80-95); MPV 9.3 fL (8.0-11.0); Neutrophils % 43.2; Nucleated RBC 0 %; Platelet Count 372 10^3/uL (130-400); RBC 3.66 10^6/uL (3.93-5.22); RDW 13.1 % (11.7-14.6); RDW-SD 47.4 fL; WBC 4.08 10^3/uL (4.4-10.8)
[2020-11-11 13:29] LABS: ALT 17 U/L (14-59); AST 13 U/L (15-37); Albumin 3.6 g/dL (3.4-5.0); Alkaline Phosphatase 60 U/L (46-116); Anion Gap 7.4 mmol/L (3-11); BUN 14 mg/dL (7-18); Bilirubin, Total 0.2 mg/dL (0.2-1.0); CO2 29.6 mmol/L (21.0-32.0); CREATININE 0.9 mg/dL (0.55-1.02); Calcium 8.6 mg/dL (8.5-10.1); Chloride 106 mmol/L (98-107); Glucose 88 mg/dL (74-106); Lipase 197 U/L (73-393); Potassium 3.9 mmol/L (3.5-5.1); Sodium 143 mmol/L (136-145); Total Protein 6.5 g/dL (6.4-8.2)
[2020-11-11 13:30] LABS: Troponin I < 0.05 ng/mL (<0.06)
--- NOTE | 2020-11-11 15:30 | RT.EKG_ITS ---
APPROVED REPORT Exam: Resting ECG Reason for Exam: repeat with troponin Patient Location: E HR:67 bpm ECG Measurements Heart Rate 67 AXIS NV 221 P 86 QRSd 102 QRS -61 QT 449 T 39 QTc 473 Conclusion Sinus rhythm...normal P axis, V-rate 60- 99 Prolonged NV interval...NV >220, V-rate 50- 90 Inferior infarct, old...Q >35mS, II III aVF no STEMI. non-diagnostic EKG. I have reviewed and interpreted ECG and agree with software generated interpretation.
--- NOTE | 2020-11-11 15:47 | ED.GENADUL_ITS ---
Discharge Plan Disposition Patient Disposition: HOME Condition: Stable Discharge Details Clinical Impression: Chest pain Primary Care Provider: Leeanne Schultz V ED Provider: Lee Trejo Home Meds and New Rx's Prescriptions: Continued albuterol sulfate 2.5 MG/3 ML solution for nebulization 2.5 mg Inhalation [id number] Qty: 1 RF: 3 azelastine 137 MCG/0.137 ML aerosol,spray 2 spry NS BID RF: 0 budesonide-formoterol [Symbicort] 10.2 GM HFA aerosol inhaler 2 puff Inhalation BID RF: 0 PROVENTIL HFA 18 GM HFA.AER.AD 2 puff Inhalation Q6H PRN RF: 0 citalopram [Celexa] 40 MG tablet 40 mg PO .HS RF: 0 amlodipine 5 MG tablet 2.5 mg PO DAILY RF: 0 zolpidem 5 MG tablet 10 mg PO .HS RF: 0 bupropion HCl 300 MG tablet extended release 24 hr 300 mg PO DAILY RF: 0 clonazepam [Klonopin] 0.5 MG tablet 0.5 mg PO PRN PRNRF: 0 levothyroxine [Euthyrox] 137 mcg tablet 137 mcg PO DAILY RF: 0 pantoprazole 40 mg tablet,delayed release (DR/EC) 40 mg PO DAILY RF: 0 Discharge Instructions Instructions: Chest Pain (ED) Additional Instructions: Today you had medical screening exam for chest pain. EKG was nondiagnostic. Blood work including 2 sets of cardiac enzyme troponin levels were checked and normal. It is recommended that you continue to take a baby aspirin enteric- coated 81 mg daily until cleared by your primary care doctor. It is recommended that you have an outpatient cardiac stress test performed early next week. No exertional activities until cleared by your primary care physician. Please contact your primary care physician to arrange follow-up. Call first thing Saturday morning. Please also follow-up with gastroenterology as discussed. Return to the ER immediately for any worsening or new concerning symptoms. Referrals: Leeanne Schultz MD [Primary Care Provider] - Discharge Data Discharge Date/Time-TO BE ENTERED AT DEPARTURE: 11/11/20 16:34 Medical Decision Making 75-year-old female here with 2 episodes of chest pain that occurred last night in the night before no chest pain at this time. Sent from urgent care for further evaluation. Patient saturating well in no respiratory distress with no concerning findings on examination. Lungs clear to auscultation, normal cardiac sounds and abdomen benign. Patient is hemodynamically stable. Screening ECG was reviewed and interpreted by me: Sinus rhythm 76 bpm, normal axis, Q waves are present in 2 3 aVF, no STEMI. I reviewed EKG performed at urgent care which reveals same findings as ED EKG. Consider pneumothorax. Chest x-ray was reviewed and interpreted by radiology: No acute abnormality. Considered ACS. Labs reviewed: Troponin normal. Plan for delta troponin. Patient is quite concerned about the potential for pancreatic cancer. She notes that her mother had pancreatic cancer. She had a CT scan performed about a year ago and then a repeat CAT scan performed 6 months ago to assess for tumor given her concern and she notes that both of these were negative. She has no abdominal pain or tenderness. Lipase is normal and LFTs are normal. Patient was reassessed and remained hemodynamically stable and pain-free. No arrhythmia noted on cardiac monitoring. Plan for delta troponin and if negative, discharge with close outpatient follow- up and stress test. HPI General Mode of arrival: ambulatory . Date/Time Provider Initiated Documentation: 11/11/20 11:58 . Limitations to Documentation: no limitations . Information obtained by: patient . HPI Narrative: 75-year-old female with history of GERD, IBS, melanoma, anxiety, presents with chief complaint of chest pain. Patient notes intermittent chest pain over the past couple days. She states she experiences at night, brief episodes lasting minutes-hour, localized to lower left chest and radiating around to left scapula. Pain moderate when she experiences it. She does not currently have pain. No associated shortness of breath, nausea or diaphoresis. No leg swelling or calf pain. She was seen at urgent care and had an EKG that was noted to be concerning to the praccoral zunigar and she was sent for further evaluation. Patient does note ongoing concern for pancreatic cancer. She notes that her mother had pancreatic cancer and that she always worries about this. She had a CT of the abdomen pelvis done about a year ago and then another CT abdomen pelvis about 6 months ago that did not reveal any signs of cancer. Related Data Home Medications Medication Instructions Recorded Confirmed amlodipine 2.5 mg PO DAILY 01/22/13 11/11/20 bupropion HCl 300 mg PO DAILY 01/22/13 11/11/20 citalopram [Celexa] 40 mg PO .HS 01/22/13 11/11/20 zolpidem 10 mg PO .HS 01/22/13 11/11/20 clonazepam [Klonopin] 0.5 mg PO PRN PRN 03/13/14 11/11/20 Proventil Hfa 2 puff INHALATION Q6H PRN inhaler 11/22/17 11/11/20 NS albuterol sulfate 2.5 mg INHALATION [id number] #1 vial 11/22/17 11/11/20 NS azelastine 2 spry NS BID spray NS 11/22/17 11/11/20 budesonide-formoterol [Symbicort] 2 puff INHALATION BID inhaler NS 11/22/17 11/11/20 levothyroxine [Euthyrox] 137 mcg PO DAILY 11/11/20 11/11/20 pantoprazole 40 mg PO DAILY 11/11/20 11/11/20 Allergies Allergy/AdvReac Type Severity Reaction Status Date / Time iopamidol AdvReac Intermediate Anaphylaxsi Unverified 11/11/20 11:56 s montelukast sodium AdvReac Intermediate Headache Unverified 11/11/20 11:56 [From Singulair] morphine AdvReac Intermediate Cardiac Unverified 11/11/20 11:56 Dysrythmia nitrofurazone AdvReac Mild Nausea Unverified 11/11/20 11:56 shrimp Allergy Severe Anaphylaxsi Uncoded 11/11/20 11:56 s General Stated Complaint: Chest Pain MARYA: 2 Review of Systems All systems reviewed & are unremarkable except as noted in HPI and below Constitutional Constitutional: Denies fever(s) Cardiovascular Cardiovascular: Reports as per HPI [facility] Medical History (Updated 11/11/20 @ 15:48 by Lee Trejo MD) Abnormal finding on EKG Anxiety Depression Facial paresthesia Female bladder prolapse Fibromyalgia Hearing loss History of IBS Hypothyroid Insomnia Malignant melanoma Surgical History (Updated 02/19/18 @ 14:34 by [email or web address] [place]) Abdominal hysterectomy Arthroscopy, Shoulder right Bladder Surgery Colonoscopy - MAC Replacement of total knee joint right Family History (Updated 12/20/17 @ 11:38 by Jory King MD) Other Constipation Social History (Updated 01/10/18 @ 15:43 by Atul Sharpe MD) Smoking/Tobacco Use Status: Former Tobacco Use Smoking risk assessment performed?: Yes Alcohol Intake: current Alcohol Intake frequency: 0-2 drinks per day Alcohol type: wine Drug use: Never Substance use type: does not use Household members: spouse Do you feel safe in your relationship?: Yes Exam Const General: cooperative and no acute distress HENMT Mouth: moist mucous membranes Eyes Conjunctivae: normal conjunctivae Sclera: normal sclerae Neck Neck: trachea midline and supple Resp Auscultation: clear to auscultation bilaterally, no rales, no rhonchi and no wheezes Cardio Rate: regular rate and not tachycardic Rhythm: regular rhythm GI Palpation: soft, not firm, no guarding, no masses, not rigid and nontender Skin General skin exam: no rashes or lesions noted Neuro General: patient alert, patient awake, patient oriented x3 and tone normal Extrem General: no calf tenderness and no edema Psych Appearance: grossly normal Mental Status: mental status grossly normal Speech and Movement: speech and movement normal Course Vital Signs Vital signs: Vital Signs Temperature 36.6 C 11/11/20 11:51 Pulse 68 11/11/20 11:51 Respiratory Rate 20 11/11/20 11:51 Blood Pressure 137/76 11/11/20 11:51 Pulse Oximetry 99 11/11/20 11:51 Temperature 36.6 C 11/11/20 11:51 Temperature Source Tympanic 11/11/20 11:51 Pulse 63 11/11/20 15:31 Pulse 67 11/11/20 15:31 Respiratory Rate 21 11/11/20 15:31 Respiratory Effort Non-Labored 11/11/20 12:42 Blood Pressure 122/73 11/11/20 15:31 Blood Pressure Mean 86 11/11/20 15:31 Blood Pressure Position Sitting 11/11/20 11:51 Pulse Oximetry 99 11/11/20 15:31 Oxygen Delivery Method Room Air 11/11/20 11:51 Oxygen Flow Rate 0 11/11/20 11:51 Pain Level 0 11/11/20 11:51 Lab/Test Results Lab/Test Results: Laboratory Tests Range/Units 11/11/20 11/11/20 12:40 12:40 WBC (4.4-10.8) 10^3/uL 4.08 L RBC (3.93-5.22) 10^6/uL 3.66 L Hgb (11.2-15.7) g/dL 11.2 Hct (36.0-46.0) % 35.7 L MCV (80-95) fL 97.5 H MCH (27.0-33.0) pg 30.6 MCHC (32.0-36.0) % 31.4 L RDW (11.7-14.6) % 13.1 Plt Count (130-400) 10^3/uL 372 MPV (8.0-11.0) fL 9.3 Immature Gran % 0.0 Neutrophils % 43.2 Lymphocytes % 39.7 Monocytes % 10.0 Eosinophils % 5.9 Basophils % 1.2 Nucleated RBC % % 0 Absolute Neutrophils (1.2-6.7) 10^3/uL 1.76 Absolute Lymphocytes (1.2-3.4) 10^3/uL 1.62 Absolute Monocytes (0.1-0.8) 10^3/uL 0.41 Absolute Eosinophils (0.0-0.7) 10^3/uL 0.24 Absolute Basophils (0.0-0.2) 10^3/uL 0.05 Sodium (136-145) mmol/L 143 Potassium (3.5-5.1) mmol/L 3.9 Chloride (98-107) mmol/L 106 Carbon Dioxide (21.0-32.0) mmol/L 29.6 Anion Gap (3-11) mmol/L 7.4 BUN (7-18) mg/dL 14 Creatinine (0.55-1.02) mg/dL 0.9 Estimated GFR/1.73 m2 (mL/min/1.73m2) >= 60.00 Glucose (74-106) mg/dL 88 Calcium (8.5-10.1) mg/dL 8.6 Total Bilirubin (0.2-1.0) mg/dL 0.2 AST (15-37) U/L 13 L ALT (14-59) U/L 17 Alkaline Phosphatase (46-116) U/L 60 Troponin I (<0.06) ng/mL < 0.05 Total Protein (6.4-8.2) g/dL 6.5 Albumin (3.4-5.0) g/dL 3.6 Lipase (73-393) U/L 197
[2020-11-11 16:19] LABS: Troponin I < 0.05 ng/mL (<0.06)
[2020-11-11] MEDS: Aspirin E.C. 325 MG TABEC 81 MG PO (16:25)
--- NOTE | 2020-11-11 18:09 | PDOC.ERCMPRO ---
- If Service Date Differs Date of service: 11/11/20 Time of Service: 18:09 Care Management Progress Note Leeanne is seen in the ED for chest pain. At the request of ED provider, CM coordinates a referral to [facility] in [place] for evaluation of GERD.
== END 2020-11-11 16:34 | disposition home or self-care (01) ==
PROVIDERS: Emergency Provider Student in an Organized Health Care Education/Training Program; PCP Family Medicine
DX: R07.89 Other chest pain (principal)
CPT/HCPCS: 36415; 80053; 83690; 93005; 99285; 71046; 84484; 85025; 93010

== ENCOUNTER 2020-11-21 01:16 | Outpatient (CLI) | payer MEDICARE, SELFPAY ==
--- NOTE | 2020-11-21 09:00 | ETT_ITS ---
APPROVED REPORT Exam: Exercise Treadmill Patient Location: Out-Patient Room/Bed: Stress Nurse: Melida Hussein RN Ordering Provider:BEATRIS LUCAS, Contact Number: BMI: 21.61 Baseline Rhythm: Sinus Rhythm Indications: ATYPICAL CHEST PAIN Medical History Medical History: Anxiety, Depression, Malignant Melanoma, Fibromyalgia, HTN Cardiac Medications: Amlodipine, Albuterol sulfate, Pantoprazole Allergies: Iopamidol, Montelukast, Morphine, Nitrofurazone, Shrimp Cardiac Risk Factors: FHX of CAD, HTN, Asthma, Smoking (former) Previous Cardiac Procedures: None Pretest Chest Pain Characteristics: No chest pain Exercise History: Physically active Physical Disabilities: None Lung Sounds: Clear to auscultation Heart Sounds: Regular Stress Test Details Test: Exercise stress testing was performed using a Morgan protocol. Rest Stress HR Resting HR Supine: 73 bpm Max Heart Rate (APMHR): 146 bpm Resting HR Standin bpm Target HR (85% APMHR): 124 bpm Max HR Achieved: 126 bpm % of APMHR: 86 Recovery HR: 77 bpm HR response to stress: Normal HR response to stress BP Resting BP Supine: 128/80 mmHg Resting BP Standin/78 mmHg Max BP: 162/68 mmHg Recovery BP: 128/80 mmHg BP response to stress: Normal blood pressure response to stress. ECG Resting ECG: Sinus Rhythm Ectopy: None Stress ECG: Sinus Bradycardia ST Change: No significant ST segment changes noted Arrhythmia: occasional PVC/PAC Recovery ECG: Sinus Rhythm Recovery ST Change: No significant ST segment changes noted Recovery Arrhythmia: occasional PAC Clinical Reason for Termination: Fatigue Stress Symptoms: General Fatigue Exercise duration: 08 min59 sec Highest Stage Reached: Stage 3: 3.4 mph at 14% grade. Exercise capacity: 10.16 METs Moreno Treadmill Score: 8.8 Rate Pressure Product: [id number] Stress ECG Conclusion 1. Resting electrocardiogram showed low voltage but was otherwise normal 2. Patient exercised on the Morgan protocol and completed a workload of 10.16 METS, stopping due to fa tigue 3. Normal heart rate and blood pressure response to exercise. The patient achieved 86% of predicted heart rate for age 4. Electrocardiographically there was no evidence of myocardial ischemia 5. There were no significant dysrhythmias Moreno Treadmill Score is 8.8 which is Low risk. Stress Test Summary STAGE Time (mins) Speed (mph) Grade (%) HR BP SYMPTOMS METS Supine 73 128/80 Standing 84 126/78 1 3 1.7 10 103 128/74 4.6 2 6 2.5 12 112 144/72 7 3 9 3.4 14 126 10.2 1 min recovery 103 162/68 3 min recovery 80 150/70 6 min recovery 77 128/80
== END 2020-11-21 01:36 ==
PROVIDERS: PCP Family Medicine; Visit Provider Student in an Organized Health Care Education/Training Program
DX: R07.89 Other chest pain (principal); I10 Essential (primary) hypertension; J45.909 Unspecified asthma, uncomplicated; Z82.49 Family history of ischemic heart disease and other diseases of the circulatory system; Z87.891 Personal history of nicotine dependence
CPT/HCPCS: 93016; 93018; 93017

== ENCOUNTER 2021-01-11 15:12 | Outpatient (CLI) | payer MEDICARE, SELFPAY ==
--- NOTE | 2021-01-11 | DI.RAD_ITS ---
Exam(s) XR HAND RT COMPLETE EXAM: XR HAND RT COMPLETE CLINICAL HISTORY: TENOSYNOVITIS OF FINGER M65.849 PAIN AND SWELLING 3RD AND 4TH FINGERS. TECHNIQUE: 2D digital imaging was performed. COMPARISON: No exams were available for comparison FINDINGS: BONES: No acute fracture is present. No bony destructive lesion is seen. Diffuse osteopenia. JOINTS: No dislocation present. Narrowing of the interphalangeal joints, greater distally. Some narr owing and spurring is seen at the 1st metacarpophalangeal joint. SOFT TISSUE: Normal. No soft tissue calcifications. IMPRESSION: Degenerative changes, greatest of the interphalangeal joints. DATA REPOSITORY: RADIATION DOSE DELIVERED:
== END 2021-01-11 15:32 ==
PROVIDERS: PCP Family Medicine; Visit Provider Family Medicine
DX: M65.841 Other synovitis and tenosynovitis, right hand (principal); M15.1 Heberden's nodes (with arthropathy)
CPT/HCPCS: 73130

== ENCOUNTER 2021-03-14 11:01 | Outpatient (REF) | payer MEDICARE, SELFPAY ==
[2021-03-14 16:05] LABS: HCT 39.5 % (36.0-46.0); HGB 12.4 g/dL (11.2-15.7); MCH 30.6 pg (27.0-33.0); MCHC 31.4 % (32.0-36.0); MCV 97.5 fL (80-95); MPV 9.6 fL (8.0-11.0); Platelet Count 439 10^3/uL (130-400); RBC 4.05 10^6/uL (3.93-5.22); RDW 13.2 % (11.7-14.6); RDW-SD 47.2 fL; WBC 5.49 10^3/uL (4.4-10.8)
[2021-03-14 23:39] LABS: FREE T4 1.37 ng/dL (0.76-1.46); Folate 19.8 ng/mL (8.6-20.0); Vitamin B12 372 pg/mL (193-986)
== END 2021-03-14 11:02 | disposition home or self-care (01) ==
LOC: NCHCN 11:01
PROVIDERS: PCP Family Medicine; Visit Provider Family Medicine
DX: E03.9 Hypothyroidism, unspecified (principal); D64.9 Anemia, unspecified
CPT/HCPCS: 85027; 82607; 82746; 84439

== ENCOUNTER 2021-09-15 12:17 | Outpatient (REF) | payer MEDICARE, SELFPAY ==
[2021-09-15 15:05] LABS: HCT 36.2 % (36.0-46.0); HGB 11.4 g/dL (11.2-15.7)
[2021-09-15 15:36] LABS: Calculated LDL 105 mg/dL (<100); Cholesterol 210 mg/dL (<200); HDL Cholesterol 67 mg/dL (40-60); Triglyceride 194 mg/dL (<150)
[2021-09-15 15:54] LABS: FREE T4 1.27 ng/dL (0.76-1.46)
== END 2021-09-15 12:18 | disposition home or self-care (01) ==
LOC: NCHCN 12:17
PROVIDERS: PCP Family Medicine; Visit Provider Family Medicine
DX: E03.9 Hypothyroidism, unspecified (principal)
CPT/HCPCS: 80061; 84439; 84443; 85014; 85018

== ENCOUNTER 2021-09-19 01:13 | Outpatient (CLI) | payer MEDICARE, SELFPAY ==
--- NOTE | 2021-09-19 | DI.MAMMO_ITS ---
Exam(s) MAMMO SCREENING EXAM: MAMMO SCREENING CLINICAL HISTORY: SCREENING, Z12.31. TECHNIQUE: Bilateral full field digital CC and MLO mammographic images were obtained with 3D tomosyn thesis and utilizing computer aided detection (CAD). COMPARISON: Prior mammograms were reviewed, the most recent being May 2020. FINDINGS: Been no significant change in the appearance and distribution of the tissue. No CAD designations There are no new spiculated masses nor malignant appearing microcalcification groups. There is no significant architectural distortion nor skin thickening-retraction. IMPRESSION: No radiographic evidence of malignancy. BI-RADS Category 1 - Negative Breast Density - Category B - Scattered areas of fibroglandular density Breast density Category C or D implies that the patient has dense breast tissue. Dense breast tissue can make it harder to find cancer on a mammogram. Dense breast tissue is also associated with an incr eased risk of breast cancer. This information about the result of the mammogram report was provided to the patient to raise their awareness. Use this report when you speak with the patient about their risks for breast cancer, which includes their family history. At that time, you may recommend additional screening tests (Ultrasoun d or MRI) as these tests may add significant information. A negative radiographic report should not delay biopsy if a dominant or clinically suspicious mass is present. Up to ten percent of cancers are not identified on mammography. A negative report may reinforce clinical impression. Adenosis and dense breasts may obscure an underlying neoplasm. False positive reports average 6 to 10%. Patient will receive a letter notifying them of these results.
== END 2021-09-19 01:33 ==
PROVIDERS: PCP Family Medicine; Visit Provider Family Medicine
DX: Z12.31 Encounter for screening mammogram for malignant neoplasm of breast (principal)
CPT/HCPCS: 77063; 77067

== ENCOUNTER 2021-11-14 15:41 | Outpatient (REF) | payer MEDICARE, SELFPAY ==
[2021-11-14 14:31] LABS: Abs Immature Grans 0.02 10^3/uL (0.0-0.06); Absolute Basophil Count 0.04 10^3/uL (0.0-0.2); Absolute Eosinophil Count 0.24 10^3/uL (0.0-0.7); Absolute Lymphocyte Count 1.11 10^3/uL (1.2-3.4); Absolute Monocyte Count 0.64 10^3/uL (0.1-0.8); Absolute Neutrophil Count 3.01 10^3/uL (1.2-6.7); Basophils % 0.8; Eosinophils % 4.7; HCT 37.8 % (36.0-46.0); HGB 12.2 g/dL (11.2-15.7); Immature Grans % 0.4; Lymphocytes % 21.9; MCH 30.9 pg (27.0-33.0); MCHC 32.3 % (32.0-36.0); MCV 96 fL (80-95); MPV 9.7 fL (8.0-11.0); Monocytes % 12.6; Neutrophils % 59.6; Platelet Count 418 10^3/uL (130-400); RBC 3.95 10^6/uL (3.93-5.22); RDW 13.2 % (11.7-14.6); RDW-SD 46.7 fL; WBC 5.06 10^3/uL (4.4-10.8)
[2021-11-17 09:56] LABS: IgE 15 IU/mL (<158)
== END 2021-11-14 15:42 | disposition home or self-care (01) ==
LOC: LBN 15:41
PROVIDERS: PCP Family Medicine; Visit Provider Student in an Organized Health Care Education/Training Program
DX: J45.909 Unspecified asthma, uncomplicated (principal)
CPT/HCPCS: 82785; 85025

== ENCOUNTER 2021-11-23 01:50 | Outpatient (CLI) | payer MEDICARE, SELFPAY ==
--- OUTSIDE RECORDS SUMMARY | 2021-11-23 01:52 | XMS_ITS | Encounter Summary ---
:1945 Author Organization [facility] [place] [address] Care Team Providers Name Role Phone Leeanne Schultz MD Primary Care Provider Encounter Details Date Type Department Care Team Description 10/04/2020 Clinical Support Dermatology at [facility] (epidermal Road MD Natalia inclusion cyst) [address] [facility] [id number] [facility] [phone] [place] [address] Social History Tobacco Use Types Packs/Day Years Used Date Former Smoker Smokeless Tobacco: Never Used Alcohol Use Standard Drinks/Week Comments Yes 7 (1 standard drink = 0.6 oz pure alcoho l) Sex Assigned at Date Recorded Female 10/02/2020 6:58 PM EDT documented as of this encounter Progress Notes Juan Alberto-Miguel Angel Farrell, POLICE CLERK - 10/04/2020 7:30 AM EDT Pre Procedure Nurse Intake: Provider: [place] [facility] MD Leeanne Cooney is a 75 y.o. female presents to the clinic today for a procedure visit. Pre surgery Vital signs: BP: 124/93 HR: 76 Reviewed surgery expectations and after visit wound care instructions with patient. Patient verbalized understanding. Confirmed location with patient. Prepared patient for surgery. Miguel Angel Evans CMA documented in this encounter Plan of Treatment Upcoming Encounters Date Type Specialty Care Team Description 03/14/2022 Office Visit Dermatology [place] [facility] MD [facility] ER DR DIANA CANAS-DERMAT [place], [place] [address] (Wo rk) documented as of this encounter Visit Diagnoses Diagnosis EIC (epidermal inclusion cyst) Sebaceous cyst documented in this encounter Care Teams Gas Singer Relationship Specialty Start Date End Date Leeanne Schultz MD PCP - General 10/28/13 [address] [place] [address] documented as of this encounter
--- OUTSIDE RECORDS SUMMARY | 2021-11-23 01:52 | XMS_ITS | Encounter Summary ---
:1945 Author Organization [facility] [place] [address] Care Team Providers Name Role Phone Leeanne Schultz MD Primary Care Provider Encounter Details Date Type Department Care Team Description 11/13/2019 Telephone Dermatology at [facility] Cm Corbett III, [address] [place] [address] [facility] [phone] DIA[address] MEDINA-DERMAT [place] [id number] (Wo rk) Social History Tobacco Use Types Packs/Day Years Used Date Former Smoker Smokeless Tobacco: Never Used Alcohol Use Standard Drinks/Week Comments Yes 7 (1 standard drink = 0.6 oz pure alcoho l) Sex Assigned at Date Recorded Female 10/02/2020 6:58 PM EDT documented as of this encounter Miscellaneous Notes Telephone Encounter - Rosina Gutierrez - 11/13/2019 11:13 AM EDT I left a voicemail for Leeanne Bush requesting a call back. Dr. Kaminski wanted her to have a spot frozen from her cheek and she was trying to have it on the same day as her who is coming in for mohs (12/22) Dr. Kaminski is precepting so a resident could see her on that day. documented in this encounter Plan of Treatment Upcoming Encounters Date Type Specialty Care Team Description 03/14/2022 Office Visit Dermatology [place] Edgar MD [facility] [address] DIANA MEDINA-DERMAT [place], [place] [address] (Wo rk) documented as of this encounter Visit Diagnoses Not on filedocumented in this encounter Care Teams Geriatric Care Manager Relationship Specialty Start Date End Date Leeanne Scuhltz MD PCP - General 10/28/13 [address] [place] [address] documented as of this encounter
--- OUTSIDE RECORDS SUMMARY | 2021-11-23 01:52 | XMS_ITS | Encounter Summary ---
:1945 Author Organization [facility] [place] [address] Care Team Providers Name Role Phone Leeanne Schultz MD Primary Care Provider Reason for Visit Reason Comments Skin Lesion hx of Melanoma Encounter Details Date Type Department Care Team Description 04/14/2018 Office Visit Dermatology at [facility] Veronica Souza oplasm of [facility], [place] behavior of skin [address] [place] [address] [facility]-DER[facility]OLOGY [place], [place] [address] Social History Tobacco Use Types Packs/Day Years Used Date Former Smoker Smokeless Tobacco: Never Used Alcohol Use Standard Drinks/Week Comments Yes 7 (1 standard drink = 0.6 oz pure alcoho l) Sex Assigned at Date Recorded Female 10/02/2020 6:58 PM EDT documented as of this encounter Patient Instructions Patient InstructionsStephanie Gonzalez - 04/14/2018 4:00 PM EST ABOUT YOUR TREATMENTS Your Treatment today: You had a biopsy of your skin (removal of a small piece of tissue for examination under microscope).You had a shave biopsy and do not have sutures. Location of your biopsy: Keep in mind the location of your biopsy site in case further treatment is necessary. Wound care Instructions: 1. Keep wound dry and covered for 24 hours then clean area with soap and water. 2. Pat dry completely 3. Cover with Vaseline and a new bandage daily, do this everyday until the wound is healed Please call [phone] if you have questions or concerns. * Please allow one or two weeks for the biopsy results to return. *Based on your biopsy results we will either call you or send you a letter with the results. *If in two weeks, you have not heard from us, please feel free to call and request your biopsy results. documented in this encounter Progress Notes Veronica Souza PA - 04/14/2018 4:00 PM EST Images from the original note were not included. DERMATOLOGY - ESTABLISHED PATIENT FOLLOW-UP Date of service: 04/14/2018 Leeanne Bush : 1945, 72 y.o. CC: Chief Complaint Patient presents with ??? Skin Lesion hx of Melanoma HPI: Leeanne Bush is a 72 y.o. female last seen by Dr. Kaminski on 09/10/2017. Patient is new to me, Ms. Bush returns today for a tender skin lesion on the right lower leg. She is unsure of how longit has been there but it only recently became tender. Relevant Skin History: - Okay to leave detailed voice message with results? Yes She has family history of melanoma in her brother. 2.??Melanoma.left lateral cheek in 08/1999, with negative SLNB. The Breslow depth was 1.24 mm. 3. History of dysplastic nevi and ? BCC s 4. 2009 Basal cell carcinoma on her left mid back, excised 5. 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 ? August 2007, MIS treated in [place] ? Right lateral thigh. 6. 10/2006 Right lower back, mild to moderate DN , Excised 7. She grew up in [place] with a history of extensive sun exposure. , margins appear negative in the plane of sections examined. 8. Left leg BCC, 10/1999 (outside path) 9. Right shoulder BCC, 04/2000 (outside path) 10. Left arm, BCC, 10/2000 (outside path) 11. Left upper inner arm, mild-mod DN, 04/2001 (outside path) 12. Left upper chest, BCC, 11/2001 (outside path) 13. Right lower back, mild DN, 02/2006 (outside path) 14. 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 04/07/12- ---Pathologic Diagnosis--- A - Lentiginous compound dysplastic nevus with moderate atypia - right buttock B - 1. AK 2. Papillary dermal fibrosis - left alar crease 3. There is no basal cell carcinoma identified in multiple deeper levels examined of this 1.5mm punch biopsy specimen. 16. 03/04/13- DF. unit or cyst. 17.07/17/2014,??MIS, left upper arm, WLE 18. 2014,??MIS, right forearm, WLE 19. 2014, severely atypical intraepidermal melanocytic proliferation arising in a nevus, excised 20.10/15/2014-left lateral arm - Malignant melanoma,??predominantly melanoma in situ with focal invasion to the depth of 0.25 mm (see template) excised 11/19/2014 21. ??04/22/15 -??right medial thigh,TRAUMATIZED COMPOUND MELANOCYTIC NEVUS, PRESENT AT THE PERIPHERAL Family History: Melanoma: Brother Social History: - Medications: Current Outpatient Medications Medication Sig Dispense Refill ??? amoxicillin-clavulanate (AUGMENTIN) 875-125 mg Tablet Take 1 tablet by mouth 2 times daily. 20 tablet 0 ??? scopolamine (TRANSDERM-SCOP) 1.5 mg (1 mg over 3 days) patch [address] 1 patch onto the skin every 3 days. 6 patch 0 ??? minocycline (MINOCIN;DYNACIN) 50 mg Capsule Take 50 mg by mouth 2 times daily. ??? pimecrolimus (ELIDEL) 1 % Cream Apply topically 2 times daily. As need for redness / rash on face (Patient not taking: Reported on 12/19/2015) 30 g 1 ??? tretinoin (RETIN-A) 0.025 % Cream Apply topically to affected areas on the face at night. (Patient not taking: Reported on 10/05/2015) 45 g PRN ??? clonazePAM (KLONOPIN) 1 mg tablet ??? amlodipine (NORVASC) 10 mg tablet Take 10 mg by mouth daily. ??? buPROPion (WELLBUTRIN SR) 150 mg 12 hr tablet Take 150 mg by mouth daily. ??? Albuterol, Refill, 90 mcg/Actuation Aero Inhale 2 puffs into the lungs every 4 hours as needed. ??? citalopram (CELEXA) 40 mg tablet Take 40 mg by mouth nightly. ??? Estradiol 0.1 mg/[address] 1 patch onto the skin once a week. ??? levothyroxine (SYNTHROID) 150 mcg tablet Take 75 mcg by mouth daily. ??? zolpidem (AMBIEN) 10 mg tablet Take 5 mg by mouth nightly. No current facility-administered medications for this visit. Allergies: Allergies Allergen Reactions ??? Shellfish Derived Hives and Other (See Comments) Tongue swelling too ??? Nitrofurantoin Monohyd/M-Cryst Nausea And Vomiting Review of Systems: - General: Feels well. - Skin: No other skin concerns. Examination: - Constitutional: Patient was alert, well-appearing and in no noticeable distress. - Skin: A focused examination of the right lower leg was performed. Diagnosis/Skin findings/Assessment/Plan: 1. SCC vs SCCis - Right lateral calf: 8mm pink tender indurated scaly plaque. - Joint decision to proceed with shave biopsy today. Procedure: Skin biopsy by shave technique Location: as above Discussed indications for procedure and expectations including risks and benefits. Verbal consent obtained. Skin prep with alcohol. Local anesthesia with 1% xylocaine, 1/100,000 epinephrine. A sample of the lesion was removed by shave technique to the level of the dermis and submitted to Pathology. Hemostasis obtained (AlCl and/or electrocautery). There were no complications; the pt. tolerated the procedure well. The wound was dressed. Post-procedure expectations, wound care and activity restrictions were reviewed. Follow-up based on pathology results. Photo taken (by Esmer Souza) and documented with patient consent. [facility] [id number] RTC: Pending pathology and as schedule with Dr. Kaminski for skin check. Note initiated by Ivy Pollack CMA. I, Stephanie Gonzalez, have performed the documentation for this encounter in the presence of and acting as a scribe for Veronica Souza PA-C (Bri). I performed the services which were documented by the scribe, and I agree with the accuracy of the documentation in this encounter. Veronica Souza PA-C Reviewed and signed by Veronica Souza PA-C [facility] Patient seen in conjunction with staff automated teller manager: Meek Ramirez MD Section of Dermatology [facility] Meek Ramirez MD - 04/14/2018 4:00 PM EST Patient seen in conjunction with Veronica Souza PA-C (Bri) Spot check R leg, hx of numerous skin cancers, scaly tender spot on leg. SCC vs. SCCis - plan on biopsy today. Signed by: MEEK RAMIREZ MD Section of Dermatology [facility] Janice Reyez - 04/14/2018 4:00 PM EST No answer or voicemail so sent reminder letter to call for appointment. documented in this encounter Plan of Treatment Upcoming Encounters Date Type Specialty Care Team Description 03/14/2022 Office Visit Dermatology [place] Edgar MD [facility] [address] [place], [place] [address] (Wo rk) documented as of this encounter Procedures Procedure Name Priority Date/Time Associated Diagnosis Comme nts SPECIMEN TO Routine 04/14/2018 4:59 PM Neoplasm of Results f or this PATHOLOGY EST uncertain behavior procedure are in of skin the results section. SURGICAL PATHOLOGY Routine 04/14/2018 4:58 PM Res ults for this REPORT EST procedure are i n the results section. documented in this encounter Results Specimen to Pathology (04/14/2018 4:59 PM EST) Specimen Anatomical Collection Method Collection Time Receive d Time (Source) Location / / Volume Laterality AP Specimen 04/14/2018 4:59 PM 8 EST 10:00 AM EST Narrative [facility] - 04/15/2018 10:00 AM EST Specimen requisition ordered. ??Separate Pathology report to follow Resulting Agency Comment Spec In Lab Meek Ramirez MD PATHOLOGY/CYTOLOGY ORDERABLE S Performing Organization Address City/State/[place] [address] Surgical Pathology Report (04/14/2018 4:58 PM EST) Component Value Ref Test Analysis Performed At [facility] gist Range Method Time Signature Surgical [id number] ? Location: [facility] Report The signing pathologist has (i) examined the relevant preparation(s) for the [facility] specimen(s) and (ii) rendered or confirmed the diagnosis(es) . HOSPITAL LABORATORY . 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 of Pathology, [place], [place] CLINICAL INFORMATION Specimen Submitted: A - Skin, right lateral calf, shave biopsy (1) Clinical History and Diagnosis: 8 mm pink tender indurated scaly plaques; SCC versus SCCIS SPECIMEN PROCESSING A - Labeled/Fixative: Right lateral calf, formalin. Quantity/Size: ??Single, 1.1 x 0.7 x 0.1 cm. Tissue Description: Shave of yellow-callahan skin. Sections/Processing: Inked, quadrisected and entirely submitted in 1 cassette lab eled A1. ??ejr Specimen (Source) Anatomical Collection Method Collection Time Re ceived Time Location / / Volume Laterality 04/14/2018 4:58 PM EST Veronica MONTES DE [facility] PATHOLOGY/CYTOLOGY ORDERABLE S Performing Organization Address City/State/[place] [address] documented in this encounter Visit Diagnoses Diagnosis Neoplasm of uncertain behavior of skin documented in this encounter Care Teams Government Affairs Fellow Relationship Specialty Start Date End Date Leeanne Schultz MD PCP - General 10/28/13 [address] [place] [address] documented as of this encounter
--- OUTSIDE RECORDS SUMMARY | 2021-11-23 01:52 | XMS_ITS | Encounter Summary ---
:1945 Author Organization [facility] [place] [address] Care Team Providers Name Role Phone Leeanne Schultz MD Primary Care Provider Encounter Details Date Type Department Care Team Description 12/16/2018 Notes Only Dermatology at [facility] Brigitte Angeles MD [address] [facility] [place] [address] [facility] [phone] [place] [phone] (Wo rk) Social History Tobacco Use Types Packs/Day Years Used Date Former Smoker Smokeless Tobacco: Never Used Alcohol Use Standard Drinks/Week Comments Yes 7 (1 standard drink = 0.6 oz pure alcoho l) Sex Assigned at Date Recorded Female 10/02/2020 6:58 PM EDT documented as of this encounter Progress Notes Rosie Mcintosh - 12/16/2018 10:17 AM EDT DERMATOLOGY - [facility] - Intake Note Leeanne Bush : 1945 Next Scheduled [facility] appt with Dr. Ramirez: 01/01/2019 Relevant Medical History: Preferred Name: Skin Type: Yes/No If yes (date, subtype, location, treatment) Melanoma Yes 08/1999: Left lateral cheek, melanoma, 1.24 mm, s/p WLE with - SLNB Left back, MIS 08/2007: Right lateral thigh, MIS ([place]) 06/2014: Left upper arm, lentigo maligna, 0.18 mm, s/p excision 06/2014: Right forearm, lentigo maligna, 0.24 mm, s/p excision 07/2014: Left upper mid thigh, severe atypia (cannot rule out evolving MIS), s/p excision 10/2014: Left lateral arm, melanoma, 0.25 mm, s/p excision Dysplastic nevi Yes 04/2001: Left upper inner arm, mild to moderate 02/2006: Right lower back, mild 07/2006: Right lower cheek, mild 10/2006: Lower mid back, moderate, s/p excision 04/2012: Right buttock, moderate, s/p biopsy 10/2012: Left anterior shoulder, moderate, s/p excision 04/2015: Right medial leg, mild, /p biopsy SCC Yes 04/2018: Right lateral calf, SCCis, s/p ED&C BCC Yes 10/1999: Left leg 04/2000: Right shoulder 10/2000: Left arm, nodular 11/2001: Left upper chest 11/2009: Left mid back, BCC, s/p excision Field cancerization therapy Yes [place] 07/2014: Left cheek and right upper lip qd x 3 weeks Immunosuppression No Malignancy No Other Yes 11/2008: Left nasolabial fold, AK, s/p biopsy 09/2010: Left distal external auditory canal, granulomatous dermatitis and 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 cyst 04/2012: Left alar crease, AK, s/p biopsy 07/2014: Right superior shoulder, AK, s/p biopsy 07/2014: left lateral alex, pigmented AK, s/p biopsy Core Stripper Cm Kaminski MD Procedure Screening Questions: Yes/No If Yes, details Defibrillator/Pacemaker No Artificial Joints Yes TKR Oct 2017 Heart Valves No Blood Thinners No Prophylactic Antibiotics No Best way to reach you with results Relevant FamilyHistory: Yes/No If yes, who (mom/dad/sibling/child) Melanoma Yes Brother SCC BCC Psoriasis or Eczema Social History: Occupation: Marital status: Alcohol use: documented in this encounter Plan of Treatment Upcoming Encounters Date Type Specialty Care Team Description 03/14/2022 Office Visit Dermatology [place] Edgar MD [facility] [address] [place], [place] [address] (Wo rk) documented as of this encounter Visit Diagnoses Not on filedocumented in this encounter Care Teams Flatwork Catcher Relationship Specialty Start Date End Date Leeanne Schultz MD PCP - General 10/28/13 [address] [place] [address] documented as of this encounter
--- OUTSIDE RECORDS SUMMARY | 2021-11-23 01:52 | XMS_ITS | Encounter Summary ---
:1945 Author Organization [facility] [place] [address] Care Team Providers Name Role Phone Leeanne Schultz MD Primary Care Provider Encounter Details Date Type Department Care Team Description 10/04/2020 [facility] [place] (epidermal Road inclusion cyst) [address] [facility] [address] [facility] [phone] RD-DERMATOLOGY [place] [address] Social History Tobacco Use Types Packs/Day Years Used Date Former Smoker Smokeless Tobacco: Never Used Alcohol Use Standard Drinks/Week Comments Yes 7 (1 standard drink = 0.6 oz pure alcoho l) Sex Assigned at Date Recorded Female 10/02/2020 6:58 PM EDT documented as of this encounter Last Filed Vital Signs Vital Sign Reading Time Taken Comments Blood Pressure 124/93 10/04/2020 7:46 AM EDT Pulse 76 10/04/2020 7:46 AM EDT Temperature - - Respiratory Rate - - Oxygen Saturation - - Inhaled Oxygen Concentration - - Weight - - Height - - Body Mass Index - - documented in this encounter Patient Instructions Patient InstructionsJuan Alberto-Miguel Angel Farrell CMA - 10/04/2020 8:00 AM EDT Images from the original note were not included. Wound Care Instructions: POST OPERATIVE INSTRUCTIONS Wash your hands before changing the dressing. The dressing on the side should remain in place and dry until 10/06, then dressing should then be removed gently. After removing the dressing, daily wound care should be performed as follows: ?? Clean the wound with warm water and pat dry gently. ?? Apply Vaseline or Aquaphor. ?? Cover the wound with a new dressing such as Telfa and tape or a Band-Aid. ?? Follow this regimen every day until your suture removal. For discomfort, you may take Tylenol. Avoid aspirin and ibuprofen, as they increase your risk of bleeding. If bleeding should occur, pressure should be applied constantly for 15 minutes on the dressing with the help of a towel, wash cloth, or piece of gauze. If bleeding continues, repeat pressure for another 15 minutes. If this does not stop the bleeding, please call to clinic or go to an Emergency Room. A small amount of yellow drainage is part of normal healing, the wound is not considered healed until the drainage stops. It may take up to 3 - 4 weeks depending upon the area treated. Signs of infection include increasing tenderness or pain, drainage or redness that becomes hard or swollen surrounding the wound. If you notice any of these symptoms, please contact the clinic. It is important that you avoid strenuous and/or vigorous activities, heavy lifting (more than 5-10 lbs) and bending for a period of 1 week. The sutures should be removed in 10-14 days. If you have any questions, please contact the clinic during the day at . You may also contact your Finishing Powder Press Operator: Miguel Angel Evans CMA during the day at . In the case of urgency after 5PM and on weekends, please call the hospital number and ask for the Turbine Technician consulting property manager. Your Surgeon was: [place] Edgar MD Medical Assitant Miguel Angel Evans CMA documented in this encounter Progress Notes Miguel Angel Evans CMA - 10/04/2020 8:00 AM EDT Images from the original note were not included. Dermatologic Surgery Operative Report (Procedure: Excision with intermediate layered Closure) Patient Name: Leeanne Bush Date of : 1945 Visit date: 10/04/2020 STAFF SURGEON: Berlin Edgar MD ASSISTANTS: Miguel Angel Evans CMA Preoperative Diagnosis: Epidermal Inclusion Cyst Postoperative Diagnosis: Same as above Pathology: Submitted for permanent pathology. Pending. Lesion Site (location): upper back Pre-operative size (cm): 1.8 cm x 1.4 cm Circumferential Margins Obtained: 0.1cm Final Defect size or Total Excision Diameter (the lesion plus margins) 2.0 cm x 1.6 cm Final Length of closure: 4.5cm Total anesthesia volume used for today: 2 cc INDICATION REMOVAL. PROCEDURE >Excision with intermediate layered closure. PREOPERATIVE MEDICATION: [x] None Prior to the procedure, final verification of the patient identity and correct marked surgical site was performed. Timeout was performed. Anesthesia used was 1% lidocaine with 1:100,000 epinephrine. The skin was prepped in a sterile fashion with with 2% chlorhexidine. The lesion was excised with clinically free margins in a fusiform fashion through the skin and through the subcutaneous tissue. The wound edges were trimmed as needed, andhemostasis was obtained with electrocoagulation. Due to wound size, the wound edges were closed in a layered fashion with monocryl 3-0 subcutaneous sutures and prolene 4-0 skin sutures. Postoperative length: 4.5 cm. Estimated blood loss: Minimal. Complications: None. Wound care: Routine. Specimen sent to Dermatopathology. Biopsy report is pending. Suture removal in 10-14 days. (patient will get sutures removed by PCP) POST-OPERATIVE MEDICATIONS: [x] NONE Reviewed and signed by Berlin Edgar MD FAAD Staff Turbine Technician Department of Dermatology [facility] [place] Edgar MD - 10/04/2020 8:00 AM EDT Excision results consistent with an Epidermal Inclusion Cyst. - A benign cyst of the skin w/o concerning findings - No further intervention required - Continue wound care per handout provided Seen and reviewed by: Berlin Edgar MD Staff Turbine Technician Department of Dermatology documented in this encounter Miscellaneous Notes Addendum Note - Miguel Angel Evans CMA - 10/04/2020 8:00 AM EDT Addended by: MIGUEL ANGEL EVANS on: 10/04/2020 08:29 AM Modules accepted: Level of Service Addendum Note - Miguel Angel Evans CMA - 10/04/2020 8:00 AM EDT Addended by: MIGUEL ANGEL EVANS on: 10/04/2020 08:54 AM Modules accepted: Orders documented in this encounter Plan of Treatment Upcoming Encounters Date Type Specialty Care Team Description 03/14/2022 Office Visit Dermatology [place] Edgar MD [facility] ER [address] [place] [address] (Wo rk) documented as of this encounter Procedures Procedure Name Priority Date/Time Associated Diagnosis Comme nts SURGICAL PATHOLOGY Routine 10/04/2020 8:52 AM Res ults for this REPORT EDT procedure are i n the results section. SPECIMEN TO Routine 10/04/2020 8:52 AM EIC (epidermal Results for this PATHOLOGY EDT inclusion cyst) procedure ar e in the results section. documented in this encounter Results Surgical Pathology Report (10/04/2020 8:52 AM EDT) Component Value Ref Test Analysis Performed At [facility] Time Signature Surgical [id number] ? Location: [facility] Report The signing pathologist has (i) examined the relevant preparation(s) for the [facility] specimen(s) and (ii) rendered or confirmed the diagnosis(es) . HOSPITAL LABORATORY . ?Surgic al Pathology DIAGNOSIS Upper back, skin ??excision: - Epidermal inclusion cyst Electronically signed by: ?Sacha Nunez MD Verified: ??10/06/2020 14:22 ??Dermatopathologist Performed at: ??-[facility] Dept. of [place]ology, [place], [place] SPECIMEN(S) SUBMITTED A - upper back, skin excision (1) CLINICAL INFORMATION Subcutaneous nodule with overlying punctum on the upper back ; EIC vs other SPECIMEN PROCESSING A - Labeled/Fixative: Patient demographics, formalin. Quantity/Size: ??Single, 4.2 x 1.4 x 1.0 cm. Tissue Description: Elliptic al excision of callahan skin with an underlying 0.9 x 0.8 cm intact cyst filled with friable white material. Sections/Processing: Inked, serially sectioned an d client account representative sections submitted in 1 cassette labeled A1. ??sns Specimen (Source) Anatomical Collection Method Collection Time Re ceived Time Location / / Volume Laterality 10/04/2020 8:52 AM EDT Berlin Edgar MD PATHOLOGY/CYTOLOGY ORDERABLE S Performing Organization Address City/[facility]/[place] [address] Specimen to Pathology (10/04/2020 8:52 AM EDT) Specimen Anatomical Collection Method Collection Time Receive d Time (Source) Location / / Volume Laterality AP Specimen 10/04/2020 8:52 AM 8:52 EDT AM EDT Narrative [facility] - 10/04/2020 8:52 AM EDT Specimen requisition ordered. ??Separate Pathology report to follow Berlin Edgar MD PATHOLOGY/CYTOLOGY ORDERABLE S Performing Organization Address City/[facility]/[place]IP [place] [address] documented in this encounter Visit Diagnoses Diagnosis EIC (epidermal inclusion cyst) Sebaceous cyst documented in this encounter Care Teams Shirt Hemmer Relationship Specialty Start Date End Date Leeanne Schultz MD PCP - General 10/28/13 [address] [place] [address] documented as of this encounter
--- OUTSIDE RECORDS SUMMARY | 2021-11-23 01:52 | XMS_ITS | Encounter Summary ---
:1945 Author Organization [facility] [place] [address] Care Team Providers Name Role Phone Leeanne Schultz MD Primary Care Provider Encounter Details Date Type Department Care Team Description 06/13/2020 Refill Dermatology at [facility] Angelita Burleson MD [address] [facility] [place] [address] [facility] [phone] [place], [place] [address] (Wo rk) Social History Tobacco Use Types Packs/Day Years Used Date Former Smoker Smokeless Tobacco: Never Used Alcohol Use Standard Drinks/Week Comments Yes 7 (1 standard drink = 0.6 oz pure alcoho l) Sex Assigned at Date Recorded Female 10/02/2020 6:58 PM EDT documented as of this encounter Miscellaneous Notes Telephone Encounter - Jacy Pisano LPN - 06/13/2020 1:33 PM EST Refill request received for tretinoin, patient was last seen in clinic on 12/23. Refill request pended to Dr. Burleson for approval. Telephone Encounter - Jessy Hopkins - 06/13/2020 10:29 AM EST Received call from Leeanne Bush stating that she would like her Retin-a sent to [facility] in [facility]. Please call patient with any concerns [phone] documented in this encounter Plan of Treatment Upcoming Encounters Date Type Specialty Care Team Description 03/14/2022 Office Visit Dermatology [place] Edgar MD [facility] [address] DIANA CANAS-DERMAT [place], [place] [address] (Wo rk) documented as of this encounter Visit Diagnoses Not on filedocumented in this encounter Care Teams Candle Making Supervisor Relationship Specialty Start Date End Date Leeanne Schultz MD PCP - General 10/28/13 [address] [place] [address] documented as of this encounter
--- OUTSIDE RECORDS SUMMARY | 2021-11-23 01:52 | XMS_ITS | Encounter Summary ---
:1945 Author Organization [facility] [place] [address] Care Team Providers Name Role Phone Leeanne Schultz MD Primary Care Provider Reason for Visit Reason Comments Procedure Encounter Details Date Type Department Care Team Description 11/21/2018 [facility] [address] [place] [address] [facility] [place], [place] [address] Social History Tobacco Use Types Packs/Day Years Used Date Former Smoker Smokeless Tobacco: Never Used Alcohol Use Standard Drinks/Week Comments Yes 7 (1 standard drink = 0.6 oz pure alcoho l) Sex Assigned at Date Recorded Female 10/02/2020 6:58 PM EDT documented as of this encounter Patient Instructions Patient InstructionsStephanie Gonzalez - 11/21/2018 9:45 AM EDT Images from the original note were not included. IPL BEFORE AND AFTER TREATMENT INSTRUCTIONS The IPL procedure is one of the most popular and effective cosmetic treatments available. It is effective against the red and brown discoloration that accumulates on our skin with sun and age. It is typically performed as a series of 2-5 treatments. The best results are seen in patients who avoid the sun and maintain their skin with a skincare regimen that includes a retinoid. Ask your provider for help with this if you aren't already on such a regimen. Before treatment: ??? Put a couple of wet washcloths in the refrigerator before you leave for your treatment. ??? Do not wear makeup to your treatment. ??? Avoid using self-jayla on treatment area for 2 weeks prior to your appointment. ??? Stop all retinols, vitamin C, hydroxy acids 5 days before your treatment. (If on a ZO regimen products to avoid include: C Bright, TE Pads, Exfoliating Solomon Islander, Vitascrub, Cebatrol, Glycogent, Melamix, Tretinoin, Retamax, Brightenex, Brightamax, Growth Factor, Invisapeel.) Check with your doctor ifyou are unsure. ??? Men: shave the day of your treatment. ??? Women: do not wax or use a depilatory on treatment area for one week prior to treatment. ??? Avoid sun exposure for at least 2 weeks prior to your treatment. After treatment: ??? Swelling, redness and transient mild discomfort are normal. Brown spots may appear darker. ??? Most patients do not feel any discomfort once the procedure is over, although this can be normal. ??? Apply the wet washcloths you prepared. Repeat as needed. Ice packs are another option. Repeat 10min on and 10 min off until heat and discomfort dissipate. ??? Sleep with your head elevated if you experience swelling. ??? Treated freckles and sun spots will darken immediately after treatment, often giving a ???coffeegrounds?? appearance on the surface of the skin. Let them flake off naturally for best results. ??? If the skin is broken or a blister appears, apply vaseline and contact Dr. Burleson at the number below. Be extra careful to avoid sun exposure. ??? Localized redness may also be present and will typically resolve in 24 to 48 hours. ??? Avoid hot tubs or spas for at least 24 to 48 hours after treatment. ??? Makeup may be applied as long as the skin is not broken. Try to wait until the day after treatment to apply makeup. ??? Men: Avoid shaving for 24 hours after your treatment. ??? Women: Don???t wax, tweeze or use depilatories in first week after treatment. ??? Resume your normal skincare routine when all redness, swelling or sensitive areas have healed. It is ok to resume your skincare before all the dark areas have faded but be gentle when using any vatican citizen or scrub. ??? The recommended time interval between treatments is 3-4 weeks. ??? Avoid sun exposure for at least 2 weeks following your treatment. Questions and/or concerns please call: ???s appointment accredited legal secretary On weekends of off hours please call [facility] main number and ask for the staff radiation therapist solar energy installation manager: Or call [phone] Burleson's cell IPL Frequently Asked Questions (FAQs) What is Photorejuvenation? Photorejuvenation is a light-based treatment used to improve the skin. It treats brown and red discoloration, blood vessels and overall tone and texture. Photorejuvenation can be performed using a variety of lasers or light sources. We use an Intense Pulsed Light (or IPL) unit made by [employer] ([employer]) and occasionally use a separate alexandrite or pulsed dye laser for any stubborn spots. How does it work? The technology behind photorejuvenation with Intense Pulsed Light (IPL) is based on the principle ofselective photothermolysis (photo = light, thermal = heat, lysis = destruction, selective = targeted). Each pulse from the IPL machine delivers a high intensity flash of light. These intense pulses of light are absorbed very selectively by chromophores in the skin. Chromophores are pigmented substances that include melanin and hemoglobin. Structures that concentrate these substances (like blood vessels and brown ???age spots?? ) will be targeted by the energy of each pulse. This process is ???non-ablative?? , meaning the surface of the skin is left intact. What areas can I treat? The most commonly treated areas include the face, neck, chest, and hands. The most commonly treated conditions are sun damage, visible blood vessels and rosacea. How many treatments will I need? A series of 3-5 treatments, with each one scheduled 4-6 weeks apartis recommended for optimal results. With good sun protection and regular skincare results can last up to five years. After completing a series, most patients will benefit from a yearly maintenance treat ment. Does it hurt? The treatment consists of multiple pulses delivered by the IPL device. Each pulse feels like a briefstinging or snapping sensation that is mildly-moderately uncomfortable. How do I prepare for the procedure? Avoid the sun for 4 weeks before and 2 weeks after the treatment. ??? Avoid self-jayla for 2 weeks prior to the treatment ??? Use gentle skin care for 5 days prior to the procedure. Products to stop during those 5 days include: Retin A, tretinoin, retinol, alpha-hydroxy acid, abrasive scrubs or vitamin C ??? Use gentle skin care and regular sunscreen after your procedure. Resume your usual regimen (withretinoids, scrubs, alpha-hydroxy acids and vitamin C) 3-5 days after your procedure. ??? If taking a medication that is photosensitizing (e.g. Oracea, MCN, doxycycline, Monodox etc), stop the medication 3 days prior to the treatment to prevent adverse side effects. Such medications canbe restarted immediately after the treatment. ??? Let us know if you have a history of cold sores. Light treatments can trigger cold sores so we often prescribe a medication to prevent that. ??? Take up to 600mg of ibuprofen 1 hour prior to treatment to help make the process more comfortable. What should I expect after the procedure? Mild swelling and redness are typical immediately after the treatment and will resolve within 2 days. ??? Discomfort is usually very temporary and most patients leave with no discomfort. A minority of patients (who need more aggressive treatments) will have moderate burning and stinging that can last for several hours. ??? Pigmented lesions (freckles or age spots) darken into a coffee grounds appearance on the skin???s surface before sloughing away in about 1-2 weeks on the face and 2-3 weeks for non-facial areas. ??? Most people feel comfortable returning to work and normal activities immediately after the treatment, but we advise that you plan to avoid major social events for one week. How is the treatment performed? Protective eye patches are applied, your face is cleaned and cold air is blown on your skin as we deliver pulses with the laser, covering the entire desired area. Sessions usually last about 20 minutes. What are the risks? Treated areas are prone to hyperpigmentation (darkening of the skin) if not protected from the sun. Avoidance of the sun and wearing sunscreen daily are advised. ??? Superficial locke on the skin are very uncommon but possible. What type of results can I expect? Skin discoloration is improved with a fading of brown spots and reduction in redness. ??? Blood vessels are less noticeable ??? Pores are less visible ??? Overall skin tone is brighter and more youthful. ??? Excellent duration of effect when maintained with a good skincare regimen and sun protection. Each treatment will bring improvements but optimal results and better duration of response are seen when patients complete their series adequately treated by 3 treatments but the redness of rosacea may require up to 5 treatments. Before IPL Series After Before IPL Series After YOUR SKIN CARE INSTRUCTIONS Overview: This cleansing routine can dramatically improve your overall skin health. Dry or aging skin can be ???lazy?? . ???Lazy?? skin doesn???t exfoliate efficiently on its own (leading to dullness and even breakouts at times), nor does it maintain healthy, productive activities necessary to maintain firmness and resist wrinkling. This cleansing system alone is an important first step toward waking up your skin. An additional benefit of this system is its ability to ???Get Skin Ready?? (GSR) forother helpful ingredients that can be used. Once you tolerate your GSR system, you may benefit from a more comprehensive system that incorporates active ingredients like Vitamin C and retinol. Until then, apply sunscreens (daily) and moisturizers as needed. Notify Dr. Burleson if you experience excessiveirritation and need solutions. AM 1. Mild Gel Cleanser: Wash face with lukewarm water. 2. Exfoliating Solomon Islander: Apply to moistened face, massage for 60 seconds and rinse. Start 1-2 times per week and increase to 5-7 days per week. See information below. 3. Vashe Toner: Pat face dry with towel then apply toner 4. Your daytime moisturizer//sunscreen PM 1. Mild Gel Cleanser 2. Vashe Toner 3. Tretinoin 0.05%- apply pea size amount to face 1-2 nights per week, working up to nightly. See retinoin instructions below. Neck and Chest Use Your products can be used on your neck and chest but it is very common to see the neck react much more severely than the face. Be careful to introduce each new product slowly. General Precautions *Stop Exfoliating Solomon Islander 5 days before any skin procedure (waxing, laser, chemical peel or facials): Sun Precautions Exfoliating Solomon Islander can increase your risk of sunburn and possibly make you susceptible to discoloration if you use it without also taking sun precautions. Your regimen should include a sunscreen. Ideally, one with zinc and titanium as main ingredients. You should also seek shade when possible. Sun exposure interferes with every healthy skin goal. Do not stop your regimen in the summertime. Your skin is healthier on this program. Just be sure not to get unprotected and/or heavy sun exposure. Avoid any direct sunlight on your face (protected or not) whenever you are experiencing redness, peeling or sensitivity as you adjust to your skin care regimen. Extra Information Exfoliating Solomon Islander: Benefits: 1) Increases circulation and skin turnover 2) Enhances penetration of other products you use 3) Helps to remove , dry skin generated from the use of a retinoid (when you start your retinoid you???ll likely experience this.) The general instructions are to apply it to a moistened face. When you really need to remove skin, and/or as you get used to this product, you may want to try using it with a less moistened-almostdry face. That heightens the microdermabrasion effect. Safe to go near the eyes (to the ???bony rim?? ). Precautions: Don???t overuse while acclimating to your retinoids (Brightenex, Retamax, Growth Factor, Tretinoin or Daily Power Defense). It is very helpful when you need to lift off skin generated by the retinoid but if overdone when the skin is red and sensitive then you may aggravate the irritation. Product Sales Statement All product sales are final unless the patient experiences an allergic reaction or receives a defective product. If this is the case the patient must notify the [facility] within 2 weeks of purchase in order to receive an exchange or refund. In order to refund or exchange the product, the product needs to be brought back to the clinic before action is taken. Vashe Toner can be bought on Amazon: documented in this encounter Progress Notes Angelita Burleson MD - 11/21/2018 9:45 AM EDT DERMATOLOGY COSMETIC CONSULT Date of service: 11/21/2018 Leeanne Bush : 1945 Provider: Angelita Burleson MD Chief Complaint Patient presents with ??? Procedure HPI Leeanne Bush is a 73 y.o. year old female. New Patient to me last seen for medical dermatology byCm Kaminski MD on 09/25/2018. Here today for cosmetic consultation for lot of sun damage and scaring from skin cancer treatments. She has some brown lesion on her face that she would like treated . ROS General: feeling well Skin: denies other skin complaints PMH: Any chronic medical conditions:no SKIN HX: She has family history of melanoma in her brother. 2.??Melanoma.left lateral cheek in 08/1999, with negative SLNB. The Breslow depth was 1.24 mm. 3. History of dysplastic nevi and ? BCC s 4. 2009 Basal cell carcinoma on her left mid back, excised 5. 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 ? August 2007, MIS treated in [place] ? Right lateral thigh. 6. 10/2006 Right lower back, mild to moderate DN , Excised 7. She grew up in [place] with a history of extensive sun exposure. [...] arm, WLE 18. 2014,??MIS, right forearm, WLE . 2014, severely atypical intraepidermal melanocytic proliferation arising in a nevus, excised 20.10/15/2014-left lateral arm - Malignant melanoma,??predominantly melanoma in situ with focal invasion to the depth of 0.25 mm (see template) excised 11/19/2014 21. ??04/22/15 -??right medial thigh,TRAUMATIZED COMPOUND MELANOCYTIC NEVUS, PRESENT AT THE PERIPHERAL 04/14/2018: Right lateral calf, SCCis (ED&C, 04/24/2018) ?? HSV Hx and Details no SH: Tobacco: former ETOH: yes ADR: Allergies Allergen Reactions ??? Shellfish Derived Hives and Other (See Comments) Tongue swelling too ??? Nitrofurantoin Monohyd/M-Cryst Nausea And Vomiting MEDS: Current Outpatient Medications Medication Sig Dispense Refill [...] need for redness / rash on face 30 g 1 ??? tretinoin (RETIN-A) 0.025 % Cream Apply topically to affected areas on the face at night. 45 g PRN ??? clonazePAM (KLONOPIN) 1 [...] No current facility-administered medications for this visit. Examination General: Appears well, no distress Assessment and Plan: # IPL treatments for brown spots located on face - Number of treatments recommended: 3 - Special considerations for this pt: 1. May need to treat actinic damage with LN2 2. SKs on the eyelids - Area of main concern: Face - Before and after instructions given (in AVS): IPL Before and After/FAQs (name of handout) - HSV prophylaxis needed?: No date verified: 11/21/2018 - rosenthal quoted: $350 per treatment - See laser log for treatment dates and details - Additional notes: # Chemoprevention/correction: Emphasized value of retinoid based skin care system to amplify and maintain benefits of any anti aging plan/procedures. -retinoid: Tretinoin 0.05% date started: 11/21/2018 -ZO skincare regimen: regimen or products: Mild Gel Cleanser, Solomon Islander, Vashe toner, Cotz reviewed by:LATOSHA date: 11/21/2018 -instructions in AVS dated 11/21/2018 -discussed importance of meticulous sun protection - Discussed importance of meticulous sun protection Pt paid: $150 Instructions: Handout: IPL Before and After/FAQs FOLLOW UP WHEN: PRN FOR WHAT: IPL LENGTH OF VISIT: 15 NUMBING?: no PICTURES NEEDED? yes NOTES: OK D/B?: I am documenting this encounter acting as the scribe for and in the presence of Dr.Lucas KARYN ACEVEDO LPN and Stephanie Gonzalez I performed the above scribed service and agree with the accuracy of the documentation in this encounter. Angelita Burleson MD Section of Dermatology [facility] documented in this encounter Plan of Treatment Upcoming Encounters Date Type Specialty Care Team Description 03/14/2022 Office Visit Dermatology [place] Edgar MD [facility] [address] DIANA CANAS-DERMAT [place], [place] [address] (Wo rk) documented as of this encounter Visit Diagnoses Diagnosis Encounter for cosmetic procedure documented in this encounter Care Teams [employer] Labourer Relationship Specialty Start Date End Date Leeanne Schultz MD PCP - General 10/28/13 [address] [place] [address] documented as of this encounter
--- OUTSIDE RECORDS SUMMARY | 2021-11-23 01:52 | XMS_ITS | Encounter Summary ---
:1945 Author Organization [place] [address] Care Team Providers Name Role Phone Leeanne Schultz MD Primary Care Provider Reason for Visit Reason Comments Procedure Encounter Details Date Type Department Care Team Description 04/24/2018 Office Visit Dermatology at [place] Donohue MD [facility] [address] DIANA [place] [address] Veronica Souza PA [facility] [address] D[place] [address] carcinoma in situ [address] (SCCIS) [place] [address] Social History Tobacco Use Types Packs/Day Years Used Date Former Smoker Smokeless Tobacco: Never Used Alcohol Use Standard Drinks/Week Comments Yes 7 (1 standard drink = 0.6 oz pure alcoho l) Sex Assigned at Date Recorded Female 10/02/2020 6:58 PM EDT documented as of this encounter Patient Instructions Patient InstructionsStephanie Gonzalez - 04/24/2018 2:00 PM EST Treatment and Wound Care Instructions Your treatment today: You have had an Electrodessication and Curretage (ED&C) of your skin, which is a method to remove skin cancer. This wound will heal without stitches. Allow 3-6 weeks for the wound to heal. If bleeding occurs, hold firm pressure against the wound for 15 minutes. If bleeding continues, calls the office or go to your local emergency room. Wound Care Instructions: You will need to keep the dressing placed over the wound dry and intact for 24 hours. Afterwards, perform the following wound care daily: ?? Wash your hands before changing the dressing. ?? Remove the bandage and clean the area with mild soap and water, then gently pat the area dry. ?? Apply a small amount of Vaseline to the area, then cover the wound with a band-aid. Change your dressing daily until the wound is fully healed. ?? A small amount of yellow drainage is part of normal healing. The area might appear as a small depression with redness around the edge of the wound. This is normal. ?? Please contact the office you you notice any of the following signs of infection: increased tenderness, pain, drainage, or redness that becomes hot or hard around the wound. If you have further questions or concerns, please call the office at [phone]. If it is after 5PM, or a holiday or weekend, please call [phone] and ask for the Logger on-call. documented in this encounter Progress Notes Veronica Souza PA - 04/24/2018 2:00 PM EST DERMATOLOGY - ESTABLISHED PATIENT FOLLOW-UP Date of service: 04/24/2018 Leeanne Bush : 1945, 72 y.o. CC: Chief Complaint Patient presents with ??? Procedure HPI: Leeanne Bush is a 72 y.o. female last seen by myself on 04/14/2018. Ms. 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 She is an established patient with Dr. Kaminski. Relevant Skin History: - Okay to leave [...] back. ? August 2007, MIS treated in [place] ? Right lateral thigh. 6. 10/2006 Right lower back, mild to moderate DN , Excised 7. She grew up in [place] with a history of extensive sun exposure. [...] 04/14/2018: Right lateral calf, SCCis (ED&C, 04/24/2018) Family History: Melanoma: Brother Social History: - [...] lower leg was performed. Diagnosis/Skin findings/Assessment/Plan: 1. SCCis, biopsy proven - Right lateral calf - Joint decision to proceed with ED&C today. Procedure: Destruction of lesion. Site: as above. Discussed indications and expectations including risks and benefits. Verbal consent obtained. Skin prep. Local anesthesia: buffered 1% lidocaine with epinephrine. The entire lesion plus a small margin was treated by curettage and electrodesiccation. Post-curettage defect size: 1cm. No complications. Wound dressed. Expectations (including discomfort management) and wound care reviewed. [facility] [id number] RTC: As scheduled with Dr. Kaminski for skin checks. Note initiated by Ivy Pollack CMA. I, Stephanie Gonzalez, have performed the documentation for this encounter in the presence of and acting as a scribe for Veronica Souza PA-C (Bri). I performed the services which were documented by the scribe, and I agree with the accuracy of the documentation in this encounter. Veronica Souza PA-C Reviewed and signed by Veronica Souza PA-C [facility] Patient seen in conjunction with staff coke handling supervisor: Blanca Cabral MD Section of Dermatology [facility] documented in this encounter Plan of Treatment Upcoming Encounters Date Type Specialty Care Team Description 03/14/2022 Office Visit Dermatology [place] Edgar MD [facility] [address] DIANA CANAS-DERMAT [place], [place] [address] (Wo rk) documented as of this encounter Visit Diagnoses Diagnosis Squamous cell carcinoma in situ (SCCIS) documented in this encounter Care Teams Bit Sander Relationship Specialty Start Date End Date Leeanne Schultz MD PCP - General 10/28/13 [address] [place] [address] documented as of this encounter
--- OUTSIDE RECORDS SUMMARY | 2021-11-23 01:52 | XMS_ITS | Encounter Summary ---
:1945 Author Organization [facility] [address] Care Team Providers Name Role Phone Leeanne Schultz MD Primary Care Provider Encounter Details Date Type Department Care Team Description 12/16/2020 Anesthesia Event Gastroenterology at [facility] [phone] ANESTHESIOLOGY [place], [place] [address] Anesthesia Record Procedure Summary Procedure Name Responsible Anesthesia Start Anesthesia Stop Anesthesiologist Time Time UPPER EUS- Jonathan Quan MD 12/16/20 1408 12/16/20 1435 ENDOSCOPIC ULTRASOUND (N/A Trunk) Events Date Time Event Comment 12/16/2020 1404 1408 AN Verify 1408 Start 1408 An Start Data 1412 An Induction 1418 Anesthesia Ready 1435 an stop data 1435 Recovery or ICU Handoff Patient care was transferred to the destination unit staff after review of the patient's medica l history, current anesthetic/surgi corrie status and plan, according to the Provider Handoff Checklist. 1435 Stop Name Total Propofol 100 mg Propofol INF 225.36 mg Lactated Ringers 200 mL Agents Name O2 Air N2O O2 Auxiliary Flowmeter 1 Blood No blood administrations on file. Lines, Drains, and Airways Type Details Placement Removal PIV 12/16/20; 1352; cephalic 08/13/21 1352 by Morris crum, 12/16/20 1512 by vein (lateral side of arm), DELROY Roach Michael W, RN right; [id number] catheter system; Anatomical Landmarks; 22 gauge; Turner Golden RN; tolerated well, appears comfortable, distraction; 12/16/20; 1512 documented in this encounter Social History Tobacco Use Types Packs/Day Years Used Date Former Smoker Smokeless Tobacco: Never Used Alcohol Use Standard Drinks/Week Comments Yes 7 (1 standard drink = 0.6 oz pure alcoho l) Sex Assigned at Date Recorded Female 10/02/2020 6:58 PM EDT documented as of this encounter OR Notes Anesthesia Postprocedure Evaluation - Jonathan Quan MD - 12/16/2020 4:34 PM EDT Department of Anesthesiology Post-procedure Note Patient: Leeanne Bush Procedure Summary Date: 12/16/20 Room / Location: [facility] ENDO 3 / [facility] ENDOSCOPY Anesthesia Start: 1408 Anesthesia Stop: 1435 Procedures: UPPER EUS- ENDOSCOPIC ULTRASOUND (N/A Trunk) EGD, UPPER GI ENDOSCOPY (N/A Trunk) Diagnosis: (cervical subepithelial nodule vs extrinsic compression) Surgeons: Driss Gilbert MD Responsible Provider: Jonathan Quan MD Anesthesia Type: MAC ASA Status: 2 All Anesthesia Providers: Anesthesiologist: Jonathan Quan MD PUNCH HAND: Daryl Gilmore CRNA Vitals Value Taken Time BP 138/78 12/16/20 1500 Temp Pulse Resp 17 12/16/20 1500 SpO2 100 % 12/16/20 1500 Pain Level 0 12/16/20 1500 Patient Location: PACU/SD Level of Consciousness: Awake and Alert Pain Management: Satisfactory Analgesia PONV: None Cardiovascular Status: Hemodynamically Stable Respiratory Status: Stable Respiratory Status Postoperative Fluid Status: Intravascular EUvolemia Possible Anesthetic Complications: NONE apparent at time of evaluation Final Primary Anesthesia Type: MAC (The anesthetic type performed was the same as planned.) Comments: Anesthesia Preprocedure Evaluation - Jonathan Quan MD - 12/16/2020 8:46 AM EDT Pre-Anesthesia Evaluation for: Leeanne Bush a 75 y.o. female. Procedure(s): UPPER EUS- ENDOSCOPIC ULTRASOUND EGD, UPPER GI ENDOSCOPY Patient Active Problem List Diagnosis ??? Pelvic organ prolapse quantification stage 3 rectocele ??? Abdominal pain ??? Health care maintenance ??? Melanoma ??? Personal history of malignant melanoma of skin ??? Basal cell carcinoma on left mid back Past Medical History: Diagnosis Date ??? Asthma ??? Basal cell carcinoma ??? Hypertension ??? Melanoma ??? Thyroid disease Past Surgical History: Procedure Laterality Date ??? CREATED BY INTERFACE LES(LUMBAR EPIDURAL STERIOD INJECTION-CAUDAL SACRAL Procedure Date: 05/08/2005 ??? CREATED BY INTERFACE LES(LUMBAR EPIDURAL STERIOD INJECTION-CAUDAL SACRAL Procedure Date: 04/19/2005 ??? CREATED BY INTERFACE URETHRAL SUSPENSION,SLING\FASCIA OR SYNTHETIC / FASCIA Procedure Date: 03/15/2006 Social History Tobacco Use ??? Smoking status: Former Smoker ??? Smokeless tobacco: Never Used Substance Use Topics ??? Alcohol use: Yes Alcohol/week: 7.0 - 14.0 standard drinks Types: 7 - 14 Glasses of wine per week Social History Substance and Sexual Activity Drug Use No Allergies Allergen Reactions ??? Shellfish Derived Hives and Other (See Comments) Tongue swelling too ??? Iopamidol Other reaction(s): Anaphylaxsis ??? Montelukast Sodium Other reaction(s): Headache ??? Nitrofurantoin Monohyd/M-Cryst Nausea And Vomiting Medications: MAR and/or home medications have been reviewed. Physical Exam: Preprocedure Vitals Current as of 12/16/20 0846 No BP, pulse, respiration, SpO2, or temperature recorded. Height: Weight: BMI: IBW: Airway Assessment: Mallampati: II TM distance: >3 FB Neck ROM: full Cardiovascular Assessment: Rhythm: regular Rate: normal Pulmonary Assessment: unlabored breathing Dental Assessment: - normal exam Misc Assessment: IV access: Peripheral line Last Filed Perioperative Cognitive Screening None Anesthesia Plan: ASA 2 MAC, with a(n) intravenous induction Region - Other Informed Consent: Anesthetic plan and risks discussed with patient. Attending NOTE Brief HPI: 75 y.o. to endo suite for EGD Diagnosis ??? Basal cell carcinoma ??? Melanoma Past Medical History: Diagnosis Date ??? Asthma ??? Basal cell carcinoma ??? Hypertension ??? Melanoma ??? Thyroid disease METS:>4 Cardiac Symptoms: none LABS: Lab Results Component Value Date HGB 9.4 (L) 01/13/2018 PLATELET 353 01/13/2018 INR 1.1 01/10/2018 NA 138 01/13/2018 K 4.1 01/13/2018 CREATININE 0.80 01/13/2018 Type and Screen: Lab Results Component Value Date ABORH A Neg 01/10/2018 Past anesthetic problems: none NPO status: Reviewed and appropriate Anesthetic Plan: MAC Monitoring: Standard ASA monitors Anesthesia Screening documented in this encounter Plan of Treatment Upcoming Encounters Date Type Specialty Care Team Description 03/14/2022 Office Visit Dermatology [place] Edgar MD [facility] ER [address] [place] [id number] (Wo rk) documented as of this encounter Visit Diagnoses Not on filedocumented in this encounter Administered Medications Inactive Administered Medications - up to 3 most recent administrations Medication Order MAR Action Action Date Dose Rate Site lactated ringers infusion New Bag 12/16/2020 2:08 PM EDT Intravenous, CONTINUOUS PRN, Starting on Sat12/16/20 at 1408, Until Sat12/16/20 at 1435, Anesthesia Intra-op propofoL (Diprivan) 10 mg/mL bolus injection Given 2:26 PM EDT 20 mg (Anesthesia) Intravenous, PRN, Starting on Sat12/16/20 at 1412, Until Sat12/16/20 at 1435, Anesthesia Intra-op Given 12/16/2020 2:14 PM EDT 20 mg Given 12/16/2020 2:12 PM EDT 60 mg propofoL (Diprivan) infusion New Bag 12/16/2020 2:12 PM 200 mcg/kg/min 75.12 mL/hr Intravenous, CONTINUOUS PRN, EDT Starting on Sat12/16/20 at 1412, Until Sat12/16/20 at 1435, Anesthesia Intra-op, Routine documented in this encounter Care Teams Renal Medicine Specialist Relationship Specialty Start Date End Date Leeanne Schultz MD PCP - General 10/28/13 [address] [place] [address] documented as of this encounter
--- OUTSIDE RECORDS SUMMARY | 2021-11-23 01:52 | XMS_ITS | Encounter Summary ---
:1945 Author Organization [facility] [place] [address] Care Team Providers Name Role Phone Leeanne Schultz MD Primary Care Provider Encounter Details Date Type Department Care Team Description 11/12/2019 Telephone Dermatology at [facility] Cm Kaminski III, [address] [place] [address] [facility] [phone] [address] MED[address] [place], [place] [address] (Wo rk) Social History Tobacco Use Types Packs/Day Years Used Date Former Smoker Smokeless Tobacco: Never Used Alcohol Use Standard Drinks/Week Comments Yes 7 (1 standard drink = 0.6 oz pure alcoho l) Sex Assigned at Date Recorded Female 10/02/2020 6:58 PM EDT documented as of this encounter Miscellaneous Notes Telephone Encounter - Cm Kaminski III, MD - 11/12/2019 8:24 PM EDT Images from the original note were not included. I called the patient and discussed the path report: DIAGNOSIS Right infraorbital cheek, skin shave biopsy: - Pigmented ??actinic keratosis I discussed this condition with the patient and explored therapeutic options. I recommended treatingthe area with LN2 to ensure removal. We will set this up when her has an appointment so theycan come together. He is due for MOH's in the near future. (Eleno, can we coordinate with Tabitha - annie) Cm Kaminski MD Section of Dermatology [facility] documented in this encounter Plan of Treatment Upcoming Encounters Date Type Specialty Care Team Description 03/14/2022 Office Visit Dermatology [place] Edgar MD [facility] ER DR [address]IA[address] MEDINA[address]DERMAT [place], [place] [address] (Wo rk) documented as of this encounter Visit Diagnoses Not on filedocumented in this encounter Care Teams Data Center Consultant Relationship Specialty Start Date End Date Leeanne Schultz MD PCP - General 10/28/13 [address] [place] [address] documented as of this encounter
--- OUTSIDE RECORDS SUMMARY | 2021-11-23 01:52 | XMS_ITS | Encounter Summary ---
:1945 Author Organization [facility] [place] [address] Care Team Providers Name Role Phone Leeanne Schultz MD Primary Care Provider Encounter Details Date Type Department Care Team Description 10/06/2020 Office Visit Dermatology at [facility] Berlin Edgar A ctinic keratosis; [place] PETER EIC (epidermal inclusion cyst); [address] [facility] Dermal nevus of other site; [place] [address] Lipoma, unspecified site; [phone] [facility] keratose s; RD-DERMATOLOGY History of melanoma; [place], [place] [address] History of melanoma in situ Social History Tobacco Use Types Packs/Day Years Used Date Former Smoker Smokeless Tobacco: Never Used Alcohol Use Standard Drinks/Week Comments Yes 7 (1 standard drink = 0.6 oz pure alcoho l) Sex Assigned at Date Recorded Female 10/02/2020 6:58 PM EDT documented as of this encounter Progress Notes Berlin Edgar MD - 10/06/2020 10:45 AM EDT Images from the original note were not included. DEPARTMENT OF DERMATOLOGY Medical Dermatology Clinic Provider: Berlin Edgar MD Patient's preferred name Ivet Preferred contact method for results [] myDH [] Letter [x] Phone: Detailed phone message OK? yes PAST MEDICAL HISTORY Y/N Date, location, treatment Melanoma y Melanoma.left lateral cheek in 08/1999, with negative SLNB. The Breslow depth was 1.24 mm. 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 ? August 2007, MIS treated in [place] ? Right lateral thigh. 07/17/2014,??MIS, left upper arm, WLE 2014,??MIS, right forearm, WLE 10/15/2014-left lateral arm - Malignant melanoma,??predominantly melanoma in situ with focal invasionto the depth of 0.25 mm (see template) excised 11/19/2014 Dysplastic nevi y Left upper inner arm, mild-mod DN, 04/2001 (outside path) Right lower back, mild DN, 02/2006 (outside path) 10/2006 Right lower back, mild to moderate DN , Excised Lentiginous compound dysplastic nevus with moderate atypia - right buttock 2014, severely atypical intraepidermal melanocytic proliferation arising in a nevus, excised SCC y 04/14/2018: Right lateral calf, SCCis (ED&C, 04/24/2018) BCC y Left leg BCC, 10/1999 (outside path) Right shoulder BCC, 04/2000 (outside path) Left arm, BCC, 10/2000 (outside path) Left upper chest, BCC, 11/2001 (outside path) 2009 Basal cell carcinoma on her left mid back, excised AKs y Blistering sunburns or tanning bed use y She grew up in [place] with a history of extensive sun exposure. Other relevant past medical history (i.e. eczema, psoriasis, birthmarks, immunosuppression) y Knee replacement ??- October 2017 Perioral dermatitis FAMILY HISTORY Y/N If yes, details Melanoma y 2 brothers NMSC n Other relevant family history y Pancreatic cancer - Mother SOCIAL HISTORY Retired Diagnosis or treatment significantly limited by social determinants of health? No History of Present Illness: Leeanne Bush is a 75 y.o., established patient, last seen on 10/04/2020. Here today for a full skin exam, she recently had the cyst on the upper back excised 2 days ago, she notes that it seems to be healing well, she notes that she has a rough spot above the left brow, She has not noted any other new, growing, changing, bleeding, painful or otherwise symptomatic moles orother lesions. She has not noted any other changes in any preexisting lesions. Medications: Reviewed in eD-H Allergies: Reviewed in eD-H Skin Examination: Full skin examination: Patient asked to undress to their comfort level. Verbalized that the provider???s preference is that the patient remove all clothing and that the provider will not examine areas patient elects to keep covered. Patient elects to keep underwear on and have the following examined: s calp, hair, head, face, ears, neck, chest, axillae, abdomen, back, and upper and lower extremities. Genitalia and buttocks were not examined. Assessment/Plan #. Actinic keratosis - Ill-defined gritty papule(s) on the nose x2, - Explained etiology, natural history and premalignant potential of these lesions. - Patient opted to proceed with liquid nitrogen. - Patient should to return to clinic for re-evaluation if lesions do not resolve with this treatment. Procedure: Destruction of lesion(s) with cryotherapy. Location(s): As noted above Number: 2 Discussed procedure and expectations including risks and benefits. Verbal consent obtained. Treated with LN2. There were no complications. Patient tolerated the procedure well. Post-procedure expectations and wound care were reviewed. #. Epidermal inclusion cyst (EIC) - 1.3cm subcutaneous nodule with overlying punctum on the lower back - Benign. No treatment needed. - History of enlarging and becoming bothersome. - Previously reassured. - EIC removed from the upper back on 10/04/2020 - Patient interested in removal; excision scheduled for December 2020 #. Intradermal Nevus - pink to skin colored papule on the left cheek and occipital scalp - Benign. No treatment needed. Reassurance provided. #. Lipoma - non tender, non fixed soft subcutaneous nodule on the left forearm - Benign. No treatment necessary. Reassurance provided. - If the lesion become tender or begins to grow, return to clinic for reevaluation. #. Stucco Keratosis - on the left lower leg is a white 2-3mm gritty stuck on papule ?- Benign. No treatment needed. Patient reassured. ?- Trial of AmLactin to reduce scaling if desired #. History of EIC - Well healed surgical site on the upper back that is dry clean and intact - No evidence of recurrence - Will continue to monitor #. History of Melanoma, 2015, 0.25mm - Well healed scars on the left lateral arm - No evidence of recurrence - Will continue to monitor #. History of Melanoma 2000, negative SLNB, 1.24mm - Well healed scars on the left lateral neck - No evidence of recurrence - Will continue to monitor #. History of Multiple MIS- Well healed scars on the left upper arm, right forearm, left back, and right lateral thigh - No evidence of recurrence - Will continue to monitor #. History of NMSC - Well healed scars on the locations noted above in the skin history - No evidence of recurrence - Will continue to monitor #. Family History of Melanoma (brothers) and Pancreatic Cancer (mother) - Recommended screening for children and advised of potential genetic mutations associated with melanoma and pancreatic cancers. Recommended personal and family screening for pancreatic cancers #. Screening for Malignant Neoplasm - Common signs and symptoms of skin cancer were reviewed - Reviewed proper sun protection, use at least SPF 30 on the body and SPF 50 on the head and neck, preferably zinc or titanium oxide, avoid peak hours of the day between 10am-2pm when the sun is the brightest and use of protective clothing such as hats and long sleeve shirts. Photo was taken and charted with patient's verbal consent. Other items to document in the assessment/plan if relevant ??? Sun protection/OTC skin products discussed RTC: 6 month FSE (Hx of Melanoma, MIS, & NMSCs). Recall placed. Scribe attestation: Miguel Angel Evans CMA and Anjel Purcell have performed the documentation for this encounter in the presence of and acting as a scribe for Berlin Edgar MD I performed the above scribed service and agree with the accuracy of the documentation in this encounter. Reviewed and signed by: Berlin Edgar MD Dermatology [facility] documented in this encounter Plan of Treatment Upcoming Encounters Date Type Specialty Care Team Description 03/14/2022 Office Visit Dermatology [place] Edgar MD [facility] [address] [place] [phone] (Wo rk) documented as of this encounter Visit Diagnoses Diagnosis Actinic keratosis EIC (epidermal inclusion cyst) Sebaceous cyst Dermal nevus of other site Benign neoplasm of other specified sites of skin Lipoma, unspecified site Stucco keratoses History of melanoma Personal history of malignant melanoma o f skin History of melanoma in situ Personal history of malignant melanoma o f skin documented in this encounter Care Teams Certified Income Tax Preparer Relationship Specialty Start Date End Date Leeanne Schultz MD PCP - General 10/28/13 [address] [place] [address] documented as of this encounter
--- OUTSIDE RECORDS SUMMARY | 2021-11-23 01:52 | XMS_ITS | Encounter Summary ---
:1945 Author Organization [facility] [place] [address] Care Team Providers Name Role Phone Leeanne Schultz MD Primary Care Provider Reason for Visit Reason Comments Genetic Evaluation Consultation (Routine) - Closed Specialty Diagnoses / Procedures Referred By Contact Refer red To Contact Hematology and Oncology Diagnoses Personal history of malignant melanoma of skin Leeanne Schultz MD [facility] Hem Onc Office [address] [place] [id number] [place] [phone] Phone: Fax: Referral ID Status Reason Start Date Expiration Date Visits V isits Requested Authorized [id number] Closed Consult, Test 11/18/2020 11/18/2021 [facility] PCP Updated and/or Approved Encounter Details Date Type Department Care Team Description 03/20/2021 TH Visit Hematology and Elisa Sexton, Personal hi story of malignant melanoma of skin; (TeleHealth) Oncology at [facility] Family history of gene mutation; [facility] Family hi story of pancreatic cancer; [facility] Family history of prostate cancer [place], [place] HEMATOLOGY/[place] [address] [place] DEPT. [phone] [place], [place] [address] Social History Tobacco Use Types Packs/Day Years Used Date Former Smoker Smokeless Tobacco: Never Used Alcohol Use Standard Drinks/Week Comments Yes 7 (1 standard drink = 0.6 oz pure alcoho l) Sex Assigned at Date Recorded Female 10/02/2020 6:58 PM EDT documented as of this encounter Progress Notes Elisa Sexton LGC - 03/20/2021 2:00 PM EST Leeanne Niranjan Bush was seen by CARINE Dove in consultation at the request of Leeanne Schultz to advise regarding possible heritable predisposition to cancer. I spent 30 minutes of this telephone encounter with the patient gathering medical and family historyand discussing the likelihood of a genetic predisposition to cancer and the option of genetic testing. Reason for referral/Chief complaint Personal history of melanoma. Family history of melanoma, prostate and pancreatic cancer. Son with pathogenic mutation in FRANK gene. Medical history Cancer hx and treatment: Ivet reports that she has had 7 melanomas. Age at 1st menses: 15 or 16 years Age at 1st child: 27 Menopause status: post menopause. Had a hysterectomy at age 51 due to fibroids. Oral contraceptive use: used for 7 years Hormone replacement therapy use: used low does for 12 years from ages [age]. Current cancer screening: Had colonoscopies 12 and 4 years ago. Experienced a perforation with the last exam. Annual mammograms. Dermatology follow-up every 6 months. Family History of cancer Problem Relation Age of Onset ??? Pancreatic Cancer Mother 84 ??? Sarcome Father 85 ??? Lung Cancer Sister 66 ??? Melanoma Prostate Cancer Brother 65 68 ??? Colorectal Cancer Mother's mat. 1/2 brother ??? Melanoma Prostate Cancer Brother (identical twin of other affected brother) 65 68 ??? Basal Cell skin cancer FRANK pathogenic mutation Son 43 Maternal ethnic background is Persian. Paternal ethnic background is [place], [place]. Genetic risk assessment Ivet's son had genetic testing due his maternal and paternal family history of cancer that revealeda pathogenic mutation in the FRANK gene. Mutations in this gene increase the risk for breast, pancreatic and prostate cancer. Given that Ivet's mother had pancreatic cancer and her brothers (who are identical twins) have had prostate cancer it is possible that he inherited this mutation from Ivet. However her son's paternal grandmother and two paternal aunts had breast cancer and his father has had prostate cancer. Therefore it is also possible that this mutation was inherited from his father. It isrecommended that Ivet have testing for this mutation to determine if she is at increased risk for re lated cancers. We also discussed the option of broader genetic testing given her mother's history ofpancreatic cancer and her and her brother's history of melanoma as it is possible that there is a different gene mutation in her side of the family such as a BRCA1 or BRCA2 mutation. Panel genetic testing for an inherited predisposition to cancer, including pancreas, prostate, melanoma and other cancers was discussed. The risks, benefits and limitations of panel genetic testing were reviewed, specifically a high rate of identifying a variant of uncertain significance, lack of knowledge of cancer risk for newly identified, moderate risk genes included in the panel and lack of effective screening, as well as cancer risk for other cancers not observed in the family. Ivet opted fortesting with [facility] Multi-Cancer Panel, a next generation sequencing panel that simultaneously analyzes 84 genes, including FRANK, BRCA1 and BRCA2, that contribute to increased risk for cancer. Leeanne gave verbal consent for testing. I will be mailing the consent forms to Ivet to complete and return to me. [facility] will send a saliva collection kit with prepaid return envelope directly to Ivet's home to obtain a sample. Instructions for sample collection and return are provided within the kit. Once Chucho receives the sample, testing will take up to 3 weeks. Ivet will be contacted via telephone once her test results become available. If positive, we will offer a follow-up appointment. At that time, we will discuss with Ivet the implications that this test result may have for her, as wellas her family members. We will also provide Ivet with screening guidelines for cancer prevention and early detection, as well as answer any questions she may have. documented in this encounter Plan of Treatment Upcoming Encounters Date Type Specialty Care Team Description 03/14/2022 Office Visit Dermatology [place] Edgar MD [facility] [address] [place], [place] [address] (Wo rk) documented as of this encounter Visit Diagnoses Diagnosis Personal history of malignant melanoma o f skin Family history of gene mutation Family history of pancreatic cancer Family history of malignant neoplasm of gastrointestinal tract Family history of prostate cancer Family history of malignant neoplasm of prostate documented in this encounter Care Teams Medicare Coordinator Relationship Specialty Start Date End Date Leeanne Schultz MD PCP - General 10/28/13 [address] [place] [address] documented as of this encounter
--- OUTSIDE RECORDS SUMMARY | 2021-11-23 01:52 | XMS_ITS | Encounter Summary ---
:1945 Author Organization [facility] [address] Care Team Providers Name Role Phone Leeanne Schultz MD Primary Care Provider Encounter Details Date Type Department Care Team Description 11/22/2020 Office Visit Urology at [place] Megan Plaza Pelvic organ prolapse [facility] MD Felisha quantification stage 3 [facility] [place] [address] UROLOGY DEPT. [phone] [place], [place] [address] Social History Tobacco Use Types Packs/Day Years Used Date Former Smoker Smokeless Tobacco: Never Used Alcohol Use Standard Drinks/Week Comments Yes 7 (1 standard drink = 0.6 oz pure alcoho l) Sex Assigned at Date Recorded Female 10/02/2020 6:58 PM EDT documented as of this encounter Last Filed Vital Signs Vital Sign Reading Time Taken Comments Blood Pressure 133/72 11/22/2020 3:52 PM EDT Pulse 77 11/22/2020 3:52 PM EDT Temperature - - Respiratory Rate - - Oxygen Saturation - - Inhaled Oxygen Concentration - - Weight - - Height - - Body Mass Index - - documented in this encounter Progress Notes Megan Plaza MD - 11/22/2020 3:40 PM EDT Reason for Visit: The patient is a 75 year old who had a pubovaginal sling performed on 03/15/06. She was last seen in August 2009 and prior to that Feb 10. When I saw her in 2009 she had recently had issues with her pessary. She felt like the pessary was not providing support. She had more stool trapping and vaginal tissue pushing down despite the pessary. She saw Dr. Kern that day and he changed her from a #5 ring to a #[address] Kern and I spoke to her that day about miralax and fiber to improve her stool consistency . She stopped wearing her pessary about 10 yr ago but not sure. She notes it was never comfortable butshe can't remember exactly what the issues were She has bowel movements 15 times per day, all movements are pellets only. She is taking fiber off and on but never regularly. In the past she has had more normal bowel movements when she was on fiber regularly. She does not leak urine with coughing, laughing, or straining. She has not had any episodes of urge incontinence. She has no urgency. Previously she did note that she had more issues starting with her pessary in but then has a good stream, without the pessary it was hard to start and her stream was slow. She voids q 2 hr. She has nocturia X 0. Objective: Vitals: recorded on the flow sheet - normal range. Abdomen: soft, non tender, with no masses, no organomegaly. The pfanensteil incision is well healed. : the bladder neck is well supported. She does not leak in the supine position. The vaginal incision is well healed. She does not have her pessary in. The vaginal mucosa is examined anteriorly and posteriorly and is free of erosions. The anterior wall is well supported. The apex is well supported. There is a GR 0 cystocele and a Gr II rectocele. I reinserted her #4 oval pessary. The pessary fits well and hold her rectocele up U/A: neg for RBC, WBC Impression and Plan: Leeanne Bush is now 15 yr out from her pubovaginal sling. She is doing wellwith the sling. She has increasing issues with her recotcele and her she is not wearing her Pessary. The pessary appears to fit well but she was not wearing it. She has ongoing constipation that is causing problems. I again discussed bowel management with her - more fiber, more water, trying to have a daily bowel movement of a reasonable size bowel movment. I explained that fixing her rectocele will not fix her constipation and that her constipation puts her at high risk for recurrence. I will see her back In 3 months and we can try another pessary if the oval isn't working for her. documented in this encounter Plan of Treatment Upcoming Encounters Date Type Specialty Care Team Description 03/14/2022 Office Visit Dermatology [place] Edgar MD [facility] [address] DIANA CANAS[facility] [place], [place] [address] (Wo rk) documented as of this encounter Visit Diagnoses Diagnosis Pelvic organ prolapse quantification sta ge 3 rectocele documented in this encounter Care Teams Commercial Carpet Installer Relationship Specialty Start Date End Date Leeanne Schultz MD PCP - General 10/28/13 [address] [place] [address] documented as of this encounter
--- OUTSIDE RECORDS SUMMARY | 2021-11-23 01:52 | XMS_ITS | Encounter Summary ---
:1945 Author Organization [facility] [place] [address] Care Team Providers Name Role Phone Leeanne Schultz MD Primary Care Provider Reason for Visit Reason Comments Procedure Encounter Details Date Type Department Care Team Description 12/23[facility] [place] [facility] ker[facility] [address] [place] [address] [address] [phone] [facility] [place], [place] [address] Social History Tobacco Use Types Packs/Day Years Used Date Former Smoker Smokeless Tobacco: Never Used Alcohol Use Standard Drinks/Week Comments Yes 7 (1 standard drink = 0.6 oz pure alcoho l) Sex Assigned at Date Recorded Female 10/02/2020 6:58 PM EDT documented as of this encounter Progress Notes Janett Panchal - 12/23/2019 9:30 AM EDT Images from the original note were not included. DERMATOLOGY - ESTABLISHED PATIENT FOLLOW-UP Date of service: 12/23/2019 Leeanne Bush : 1945, 74 y.o. Chief Complaint: Chief Complaint Patient presents with ??? Procedure HPI: Leeanne Bush is a 74 y.o. female last seen by Cm Kaminski MD on 11/05/2019. Ms. Bush returns today for a pigmented actinic keratosis. Patient reports discussing treatment options with Dr. Kaminski and would like to proceed with LN2. She denies having any questions or concerns. SKIN HISTORY: Knee replacement ??- October 2017 ?? Okay to leave detailed voice message with results? Yes ?? She has family history of melanoma in her brother. 2.??Melanoma.left lateral cheek in 08/1999, with negative SLNB. The Breslow depth was 1.24 mm. 3. History of dysplastic nevi and ? BCC s 4. 2009 Basal cell carcinoma on her left mid back, excised 5. 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 ? August 2007, MIS treated in [place] ? Right lateral thigh. 6. 10/2006 Right lower back, mild to moderate DN , Excised 7. She grew up in [place] with a history of extensive sun exposure. [...] 04/14/2018: Right lateral calf, SCCis (ED&C, 04/24/2018) ? HPI Leeanne Bush is a 74 y.o.female. Established pt here for a full melanoma skin screening. She has a couple areas on the cheeks. She has had them for the past 5+ years. She has areas on the eye lids and they have been present for about 5 years. No significant health issues since last skin exam. Pt last seen on 09/25/2018 ?? Preferred pharmacy: [address] ?? Procedure Screening Questions: Allergy to lidocaine or epinephrine:??No?? Blood thinners:??No?? Pacemaker/defibrillator:??No?? Heart valves:??No?? Joint replacements:??Knee - October 2017?? Medications: Current Outpatient Medications Medication Sig Dispense Refill ??? tretinoin (RETIN-A) 0.05 % Cream Apply 1-2 nights per week, working up to nightly. 45 g PRN ??? amoxicillin-clavulanate (AUGMENTIN) 875-125 mg Tablet Take 1 tablet by mouth 2 times daily. (Patient not taking: Reported on 11/05/2019) 20 tablet 0 ??? scopolamine (TRANSDERM-SCOP) 1.5 mg (1 mg over 3 days) patch [address] 1 patch onto the skin every 3 days. (Patient not taking: Reported on 11/05/2019) 6 patch 0 ??? minocycline (MINOCIN;DYNACIN) 50 mg Capsule Take 50 mg by mouth 2 times daily. ??? pimecrolimus (ELIDEL) 1 % Cream Apply topically 2 times daily. As need for redness / rash on face (Patient not taking: Reported on 11/05/2019) 30 g 1 ??? clonazePAM (KLONOPIN) 1 mg tablet ??? [...] Vomiting Review of Systems: - General: Feels well, denies any recent illnesses, fevers, changes in weight, chills, or night sweats - Skin: No other skin concerns. Examination: - Constitutional: Patient was alert, well-appearing and in no noticeable distress. - Focused Exam: Skin examination of the face was normal with the exception of the findings listed below - A nurse/MA was present and on standby during my examination. Diagnosis/Skin findings/Assessment/Plan: # Bx proven Pigmented AK - on the right infraorbital cheek there is a healing biopsy site. - joint decision to treat with LN2 Procedure Note: Procedure: Destruction of lesion(s) with cryotherapy. Number: 1 Location: as above Discussed procedure and expectations including risks (including risk of hypopigmentation) and benefits. Verbal consent obtained. Frozen with LN2, 15-30 second thaw time, TWICE. There were no complications; the patient tolerated the procedure well. Post-procedure expectations and wound care were reviewed. RTC: 3 month FSE Note initiated by DULCE Ureña. I, DULCE Ureña, have performed the documentation for this encounter in the presence of andacting as a scribe for Janett Pacnhal MD. I performed the services which were documented by the scribe, and I agree with the accuracy of the documentation in this encounter. Janett Panchal MD Reviewed and signed by: Janett Panchal MD Resident in Dermatology [facility] Patient seen and evaluated with staff rn psychiatric: Rosina Bansk MD Department of Dermatology [facility] Rosina Banks MD - 12/23/2019 9:30 AM EDT I directly supervised Dr. Panchal during this office visit. Dr. Panchal presented the history and physical exam to me. I then saw and examined this patient with Dr. Panchal . We reviewed the history and pertinent details and I confirmed the physical findings. I agree with the details of the history and physical exam as documented in Dr. Panchals note. Rosina Banks MD Staff Physician documented in this encounter Plan of Treatment Upcoming Encounters Date Type Specialty Care Team Description 03/14/2022 Office Visit Dermatology [place] Edgar MD [facility] ER [address] DIANA [address]NA[address] [place], [place] [address] (Wo rk) documented as of this encounter Visit Diagnoses Diagnosis AK (actinic keratosis) Actinic keratosis documented in this encounter Care Teams Outside Machinist Supervisor Relationship Specialty Start Date End Date Leeanne Schultz MD PCP - General 10/28/13 [address] [place] [address] documented as of this encounter
--- OUTSIDE RECORDS SUMMARY | 2021-11-23 01:52 | XMS_ITS | Clinical Summary ---
:1945 Author Organization [facility] [place] [address] Care Team Providers Name Role Phone Leeanne Schultz MD Primary Care Provider Allergies Active Allergy Reactions Severity Noted Date Comments Iopamidol Medium 11/11/2020 Other reaction( s): Anaphylaxsis Montelukast Sodium Medium 11/11/2020 Other lauro ction(s): Headache Nitrofurantoin Nausea And Vomiting Low Monohyd/M-Cryst Shellfish Derived Hives, Other (See High Tongu e swelling too Comments) Medications Medication Sig Dispensed Refills Start Date End Date Status amlodipine (NORVASC) Take 10 mg by 0 Active 10 mg tablet mouth daily. buPROPion (WELLBUTRIN Take 150 mg by 0 09/12/2010 Active SR) 150 mg 12 hr mouth daily. tablet Albuterol, Refill, 90 Inhale 2 puffs 0 09/12/2010 Active mcg/Actuation Aero into the lungs every 4 hours as needed. citalopram (CELEXA) 40 Take 40 mg by 0 09/12/2010 Active mg tablet mouth nightly. levothyroxine Take 75 mcg by 0 A ctive (SYNTHROID) 150 mcg mouth daily. tablet zolpidem (AMBIEN) 10 Take 5 mg by mouth 0 09/12/2010 Active mg tablet nightly. clonazePAM (KLONOPIN) 0 08/07/2013 Active 1 mg tablet pimecrolimus (ELIDEL) Apply topically 2 30 g 1 10/05/2015 Active 1 % Cream times daily. As need for redness / rash on face scopolamine Place 1 patch onto 6 patch 0 12/19/2015 Active (TRANSDERM-SCOP) 1.5 the skin every 3 mg (1 mg over 3 days) days. patch 3 dayIndications: Counseling about travel, H/O motion sickness amoxicillin-clavulanat Take 1 tablet by 20 tablet 0 01/13/2018 Active e (AUGMENTIN) 875-125 mouth 2 times mg Tablet daily. tretinoin (RETIN-A) Apply 1-2 nights 45 g 06/14/2020 Active 0.05 % Cream per week, working up to nightly. metroNIDAZOLE Apply topically 60 g 3 09/12/2021 Active (MetrogeL) 1 % daily. GelIndications: Periorificial dermatitis Active Problems Problem Noted Date Pelvic organ prolapse quantification stage 3 rectocele 11/27/2020 Abdominal pain 01/11/2018 Health care maintenance 12/19/2015 Melanoma 02/08/2015 Personal history of malignant melanoma of skin 011 Basal cell carcinoma Overview: on left mid back Encounters Date Type Specialty Care Team Description 10/18/2021 Office Visit Dermatology Molly Tucker, Surgflaquita l wound present MD 09/25/2021 Office Visit Dermatology [place] Edgar MD SCC (sq uamous cell carcinoma), leg, right; SK (seborrheic keratosis); Multiple benign nevi; Lentigines; History of anson noma; History of nonm elanoma skin cancer; History of dysp lastic nevus 09/11/2021 Office Visit Dermatology Fidel Miller MD [place] sm of uncertain behavior, right alex; Neoplasm of unc ertain behavior, left thigh; Periorificial d ermatitis; AK (actinic ker atosis); Multiple benign melanocytic nevi of upper and lower extremities and trunk; Seborrheic shavonne toses; Lentigines; History of anson noma; History of nonm elanoma skin cancer from Last 3 Months Immunizations Name Administration Dates Next Due Hepatitis A Vaccine, Adult 12/19/2015 Influenza Vaccine w/Preservative, Split 02/08/2015, 01/21/20 12, 01/05/2010 Influenza Vaccine, Whole 02/27/2006, 02/20/2005, 02/19/2002 Pneumococcal Polyvalent 23 09/25/2012, 01/12/2000 Td, adult 11/20/1999 Tdap Vaccine 09/25/2012, 01/03/2010 Zoster Vaccine, Live 04/21/2007 Family History Medical History Relation Comments Melanoma Brother 1 Prostate Cancer Brother 1 Melanoma Brother 2 Prostate Cancer Brother 2 Cancer Father sarcoma Pancreatic Cancer Mother Colorectal Cancer Other maternal 1/2 uncle Lung Cancer Sister Other Son FRANK mutation Skin Cancer Son basal cell Relation Status Comments Brother 1 Brother 2 Father Mother Other Sister Son Social History Tobacco Use Types Packs/Day Years Used Date Former Smoker Smokeless Tobacco: Never Used Alcohol Use Standard Drinks/Week Comments Yes 7 (1 standard drink = 0.6 oz pure alcoho l) Sex Assigned at Date Recorded Female 10/02/2020 6:58 PM EDT Last Filed Vital Signs Vital Sign Reading Time Taken Comments Blood Pressure 139/90 03/14/2021 4:39 PM EST Pulse 82 03/14/2021 4:39 PM EST Temperature 36.4 ??C (97.5 ??F) 12/16/2020 1:41 PM EDT Respiratory Rate 17 12/16/2020 3:00 PM EDT Oxygen Saturation 100% 12/16/2020 3:00 PM EDT Inhaled Oxygen Concentration - - Weight 62.6 kg (138 lb) 12/16/2020 1:41 PM EDT Height 170.2 cm (5' 7) 12/16/2020 1:41 PM EDT Body Mass Index 21.61 12/16/2020 1:41 PM EDT Plan of Treatment Upcoming Encounters Date Type Specialty Care Team Description 03/14/2022 Office Visit Dermatology [place] Edgar MD [facility] [address] [facility] [place], [place] [address] (Wo rk) Health Maintenance Due Date Last Done Comments Covid-19 Vaccine (#1) 09/25/1950 Hepatitis C Screening 1963 Colonoscopy 09/25/1991 Advance Directive 2001 Zoster vaccine (2 of 3) 06/16/2007 04/21/2007 Bone Density Scan 09/25/2011 Pneumoccocal Vaccine: 65+ (2 - 09/25/2013 09/25/2012, 01/11 PCV) Influenza (Flu) vaccine (1 of 1 - 01/04/2022 02/08/2015, , Influenza standard series) 01/05/2010, Additiona l history exists Tetanus vaccine 09/25/2022 09/25/2012, 01/03/2010, 11/20/1999 Tdap adult Completed 09/25/2012, 01/03/2010 Procedures Procedure Name Priority Date/Time Associated Diagnosis Comme nts SURGICAL PATHOLOGY Routine 09/11/2021 12:23 Resul ts for this REPORT PM EDT procedure are i n the results section. SPECIMEN TO Routine 09/11/2021 12:23 Periorificial Results fo r this PATHOLOGY PM EDT dermatitis procedure are i n the results section. from Last 3 Months Results Surgical Pathology Report (09/11/2021 12:23 PM EDT) Component Value Ref Test Analysis Performed At [facility] Range Method Time Signature Surgical [id number] ? Location: [facility] Report The signing pathologist has (i) examined the relevant preparation(s) for the [facility] specimen(s) and (ii) rendered or confirmed the diagnosis(es) . HOSPITAL LABORATORY . ?Surgic al Pathology DIAGNOSIS Right mid medial alex, skin shave biopsy: - ??Invasive squamous cell c arcinoma, well differentiated, ?? present at the deep specimen edge Electronically signed by: ?Eron Vargas MD Verified: ??09/13/2021 11:04 ??Dermatopathologist Performed at: ??-[facility], [place], [place] SPECIMEN(S) SUBMITTED A - right mid medial alex, skin shave biopsy (1) CLINICAL INFORMATION 5 mm dull red hyperkeratotic papule on the right mid medial alex. DX: SCC vs other SPECIMEN PROCESSING A - Labeled/Fixative: Patient demographics, formalin. Quantity/Size: ??Single, 1.0 x 1.0 x 0.2 cm. Tissue Description: Shave of callahan skin with a central 0.5 x 0.4 cm raised, molina-white scaly lesion. Sections/Processing: Inked, quadrisected and entirely submitted in 2 cassettes as follows: ?A1: ??Tips ?A2: ??Body ??mnd Specimen (Source) Anatomical Collection Method Collection Time Re ceived Time Location / / Volume Laterality 09/11/2021 12:23 PM EDT Fidel Miller MD PATHOLOGY/CYTOLOGY ORDERABLE S Performing Organization Address City/State/[place] [address] Specimen to Pathology (09/11/2021 12:23 PM EDT) Specimen Anatomical Collection Method Collection Time Receive d Time (Source) Location / / Volume Laterality AP Specimen 09/11/2021 12:23 09/11/2021 PM EDT 12:23 PM EDT Narrative [facility] - 09/11/2021 12:23 PM EDT Specimen requisition ordered. ??Separate Pathology report to follow Fidel Mliler MD PATHOLOGY/CYTOLOGY ORDERABLE S Performing Organization Address City/[facility]/[place]IP [place] [address] from Last 3 Months Insurance Payer Benefit Plan / Subscriber ID Effective Phone Address T ype Group Dates MEDICARE MEDICARE PART A [id number] 2011-Prese [phone] [facility] [place] [id number] AARP SUPPLEMENT AARP SUPPLEMENT [id number] 2012-Pres [address] [place] [address] Advance Directives Latest Code Status on File Code Status Date Activated Date Inactivated Comments Full Code 01/11/2018 2:09 AM 01/13/2018 3:04 PM Does patient have capacity to make decision: Yes Care Teams Basket Turner Relationship Specialty Start Date End Date Leeanne Schultz MD PCP - General 10/28/13 [address] [place] [address]
--- OUTSIDE RECORDS SUMMARY | 2021-11-23 01:52 | XMS_ITS | Encounter Summary ---
:1945 Author Organization [facility] [place] [address] Care Team Providers Name Role Phone Leeanne Schultz MD Primary Care Provider Encounter Details Date Type Department Care Team Description 12/06/2020 Telephone Gastroenterology at [facility] [place] [address] Social History Tobacco Use Types Packs/Day Years Used Date Former Smoker Smokeless Tobacco: Never Used Alcohol Use Standard Drinks/Week Comments Yes 7 (1 standard drink = 0.6 oz pure alcoho l) Sex Assigned at Date Recorded Female 10/02/2020 6:58 PM EDT documented as of this encounter Miscellaneous Notes Telephone Encounter - Chanda Hayes - 12/06/2020 10:58 AM EDT Leeanne Bush [id number] Diagnosis/Indication: esophagus 1. Have you ever had a/an Upper EUS before? No If yes, did you have any problems with the procedure? No What type of sedation was used: None 2. Do you take any blood thinners or have you been diagnosed with a bleeding disorder that increasesyour risk of bleeding with procedures? No 3. Do you have a Pacemaker or Defibrillator device? No 4. Are you a diabetic? No 5. Do you have any Allergies to Eggs, Latex or Medications? No 6. Do you take any Oral Iron Supplements (Including multi-vitamins)? No 7. Do you have a history of three or more abdominal surgeries? No 8. Have you had a problem with sedation or anesthesia? No 9. Do you use a c-pap machine or oxygen tank? Neither 10. Do you take prescription narcotic pain medications, including suboxone or methodone? No 11. Do you have a preference regarding the gender of your provider? No Preference 12. Is there any other information you would like to us to note for the provider and nursing team who will perform your case? Yes: anxiety 13. Say to patient: You must have a responsible republican who will drive you to your procedure, stay on campus for the entire duration of your procedure, and drive you home from your procedure? *Please Verify the height and weight, and adjust if height and/or weight have changed* Estimated body mass index is 24.28 kg/m?? as calculated from the following: Height as of 01/11/18: 170.2 cm (5' 7). Weight as of 01/11/18: 70.3 kg (155 lb). *Delete if not needed* Height: 5'7 Weight: 138 BMI: Age:75 y.o. documented in this encounter Plan of Treatment Upcoming Encounters Date Type Specialty Care Team Description 03/14/2022 Office Visit Dermatology [place] Edgar MD [facility] [address]IANA CANAS[facility]DER[address] [place], [place] [address] (Wo rk) documented as of this encounter Visit Diagnoses Not on filedocumented in this encounter Care Teams Trial Examiner Relationship Specialty Start Date End Date Leeanne Schultz MD PCP - General 10/28/13 [address] [place], [place] [id number] documented as of this encounter
--- OUTSIDE RECORDS SUMMARY | 2021-11-23 01:52 | XMS_ITS | Encounter Summary ---
:1945 Author Organization [facility] [place] [address] Care Team Providers Name Role Phone Leeanne Schultz MD Primary Care Provider Reason for Visit Reason Comments Skin Lesion Encounter Details Date Type Department Care Team Description 10/18/2021 Office Visit Dermatology at [facility] urgical wound Geneva Ryan MD present [address] [place] [address] [address] [phone] [facility] [place], [place] [address] Social History Tobacco Use Types Packs/Day Years Used Date Former Smoker Smokeless Tobacco: Never Used Alcohol Use Standard Drinks/Week Comments Yes 7 (1 standard drink = 0.6 oz pure alcoho l) Sex Assigned at Date Recorded Female 10/02/2020 6:58 PM EDT documented as of this encounter Progress Notes Molly Tucker MD - 10/18/2021 1:40 PM EDT Images from the original note were not included. DEPARTMENT OF DERMATOLOGY Medical Dermatology Clinic Provider: Molly Tucker MD Patient's preferred name Ivet Preferred contact method for results [x]Phone []myD-H []Letter Detailed phone message OK? Yes Are there any other people with whom we may discuss your care? Past Medical History Date, location, treatment Melanoma 08/1999: Melanoma.left lateral cheek in , with negative SLNB. The Breslow depth was 1.24 mm. 2000: MIS on the left side of her back. 08/2007, MIS treated in [place] ? Right lateral thigh. 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 Other relevant past medical history Knee replacement ??- October 2017?? Perioral dermatitis Family History Details Melanoma 2 brothers NMSC N Other relevant family history Pancreatic cancer: mother Social History Occupation: retired Other: History of Present Illness: Leeanne Bush is a 76 y.o. Patient returns to clinic today for a follow up of the ED&C on the right medial alex. - Patient expresses some concern with the ED&C site on the right alex. Nonpainful. No purulent drainage. Last visit at Dermatology: 09/25/2021 Last visit with this provider: Visit date not found Medications: Reviewed in eD-H Allergies: Reviewed in eD-H Skin Examination: Focused skin examination of the right alex was normal with the exception of the findings below. Assessment/Plan #. Appropriately Healing ED&C Site EXAM: Healing circular ulceration on the right mid medial alex (Figure 1). - Reassured patient that there are signs of normal healing on exam today. Reviewed that legs often take longer to heal. No signs of infection today. - Advised patient to continue with regular wound care, including cleaning the wound daily and applying Vaseline and a bandage. Figure 1 Photo(s) taken and charted with patient's verbal consent. RTC: As planned in 6 months for FSE with Dr. Edgar []Note routed to service secretary []Recall placed in scheduling system []Appointment scheduled at checkout Scribe attestation: Janett Hoffman CMA has performed the documentation for this encounter in the presence of and acting as a scribe for Molly Tucker MD. I performed the above scribed service and agree with the accuracy of the documentation in this encounter. Reviewed and signed by: Molly Tucker MD Dermatology [facility] Staff global implementation manager: Mone Yen MD Dermatology [facility] Mone Yen MD - 10/18/2021 1:40 PM EDT I was the supervising physician working with Dermatology Resident in the dermatology clinic during this patient visit. The level of Resident supervision for this patient visit was indirect supervision with direct supervision immediately available. (definition: [facility] Policy Statement on Graduate Medi [facility] Education, Supervision of Graduate Medical Trainees) I was immediately available to the Dermatology Resident for questions and discussion regarding this visit. I have reviewed the encounter note details. MONE YEN MD Staff Physician documented in this encounter Plan of Treatment Upcoming Encounters Date Type Specialty Care Team Description 03/14/2022 Office Visit Dermatology Berlin Edgar MD [facility] [address] [place], [place] [address] (Wo rk) documented as of this encounter Visit Diagnoses Diagnosis Surgical wound present documented in this encounter Care Teams [employer] Founder Relationship Specialty Start Date End Date Leeanne Schultz MD PCP - General 10/28/13 [address] [place] [address] documented as of this encounter
--- OUTSIDE RECORDS SUMMARY | 2021-11-23 01:52 | XMS_ITS | Encounter Summary ---
:1945 Author Organization [facility] [place] [address] Care Team Providers Name Role Phone Leeanne Schultz MD Primary Care Provider Encounter Details Date Type Department Care Team Description 09/22/[facility]epidermal Road inclusion cyst) [address] [place] [address] [facility] [place], [place] [address] Social History Tobacco Use Types Packs/Day Years Used Date Former Smoker Smokeless Tobacco: Never Used Alcohol Use Standard Drinks/Week Comments Yes 7 (1 standard drink = 0.6 oz pure alcoho l) Sex Assigned at Date Recorded Female 10/02/2020 6:58 PM EDT documented as of this encounter Progress Notes Berlin Edgar MD - 09/22/2020 9:45 AM EDT Images from the original note were not included. DEPARTMENT OF DERMATOLOGY Medical Dermatology Clinic Provider: Berlin Edgar MD Patient's preferred name Leeanne Preferred contact method for results [] myDH [] Letter [x] Phone: Detailed phone message OK? yes PAST MEDICAL HISTORY Y/N Date, location, treatment Melanoma y Melanoma.left lateral cheek in 08/1999, with negative SLNB. The Breslow depth was 1.24 mm. 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 ? August 2007, MIS treated in [place] ? Right lateral thigh. 07/17/2014,??MIS, left upper [...] bed use y She grew up in [place] with a history of extensive sun exposure. Other relevant past medical history (i.e. eczema, psoriasis, birthmarks, immunosuppression) y Knee replacement ??- October 2017 FAMILY HISTORY Y/N If yes, details Melanoma y Brother NMSC n Other relevant family history n SOCIAL HISTORY Retired Diagnosis or treatment significantly limited by social determinants of health? No History of Present Illness: Leeanne Bush is a 74 y.o., established patient, last seen on 12/23/2019. Here today for 2 cysts on the back, they are bothersome and she notes that when she sweats they smell, she notes that her sometimes squeezes them to get the contents out but they always fill back up, she also has a rough spot on the forehead that she would like checked. Medications: Reviewed in eD-H Allergies: Reviewed in eD-H Skin Examination: Focused skin examination of the back was normal with the exception of the findings below Assessment/Plan #. Epidermal inclusion cyst (EIC) - subcutaneous nodule with overlying punctum on the upper back (1.2cm) and lower back (1.3cm) - Benign. No treatment needed. - History of enlarging and becoming bothersome. - Counseled: Etiology and treatment options. Answered all questions. - Patient opted to proceed with excision. [place] will schedule patient for next available surgical appointment. #. History of Melanoma - Not examined today - Strongly recommended skin exams. Joint decision to schedule before leaving Photo was taken and charted with patient's verbal consent. Upper back, 1.2cm Lower back, 1.3cm Other items to document in the assessment/plan if relevant ??? N/A RTC: FSE & Excision of EICs on the back (45min) Scribe attestation: Miguel Angel Evans CMA and Anjel Purcell have performed the documentation for this encounter in the presence of and acting as a scribe for Berlin Edgar MD I performed the above scribed service and agree with the accuracy of the documentation in this encounter. Reviewed and signed by: Berlin Edgar MD Dermatology [facility] documented in this encounter Plan of Treatment Upcoming Encounters Date Type Specialty Care Team Description 03/14/2022 Office Visit Dermatology [place] Edgar MD [facility] ER [address] [place], [place] [address] (Wo rk) documented as of this encounter Visit Diagnoses Diagnosis EIC (epidermal inclusion cyst) Sebaceous cyst documented in this encounter Care Teams Flash Welding Machine Operator Relationship Specialty Start Date End Date Leeanne Schultz MD PCP - General 10/28/13 [address] [place] [address] documented as of this encounter
--- OUTSIDE RECORDS SUMMARY | 2021-11-23 01:52 | XMS_ITS | Encounter Summary ---
:1945 Author Organization [facility] [place] [address] Care Team Providers Name Role Phone Leeanne Schultz MD Primary Care Provider Encounter Details Date Type Department Care Team Description 03/14/2021 Office Visit Urology at [facility] Megan Plaza Pelvic organ prolapse [facility] MD Felisha quantification stage 3 [facility] [place] [address] UROLOG[address] DEPT[address] [phone] [place], [place] [address] Social History Tobacco Use Types [...] Pulse 82 03/14/2021 4:39 PM EST Temperature - - Respiratory Rate - - Oxygen Saturation - - Inhaled Oxygen Concentration - - Weight - - Height - - Body Mass Index - - documented in this encounter Progress Notes Megan Plaza MD - 03/14/2021 4:40 PM EST Reason for Visit: The patient is a 75 year old who had a pubovaginal sling performed on 03/15/06. She was last seen 11/22/20 and prior to that August 2009 and Feb 10. She has her pessary in place. She generally takes it out q other day. She leaves it out for a day. She takes 2 tsp at one time of metamucil and sometmes a 3rd She has a bowel movement daily and has a formed tube of feces. This is a major change for her. See prior notes in italics When I saw her in 2009 she had had issues with her pessary. She felt [...] pessary about 10 yr ago but not sure why.. She notes it was never comfortable but she can't remember exactly what the issues were [...] oval pessary. The pessary fits well and holds her rectocele up U/A: neg for RBC, WBC Impression and Plan: Leeanne Bush is now 16 yr out from her pubovaginal sling. She is doing wellwith the sling. She had increasing issues with her recotcele and now is wearing her Pessary and doing well. . She has resolved her constipation with metamucil. She will continue with her pessary I will see her back In 12 months, sooner if the pessary isn't working for her. documented in this encounter Plan of Treatment Upcoming Encounters Date Type Specialty Care Team Description 03/14/2022 Office Visit Dermatology Berlin Edgar MD [facility] [address] [place], [place] [address] (Wo rk) documented as of this encounter Visit Diagnoses Diagnosis Pelvic organ prolapse quantification sta ge 3 rectocele documented in this encounter Care Teams Casting Wheel Operator Relationship Specialty Start Date End Date Leeanne Schultz MD PCP - General 10/28/13 [address] [place] [address] documented as of this encounter
--- OUTSIDE RECORDS SUMMARY | 2021-11-23 01:52 | XMS_ITS | Encounter Summary ---
:1945 Author Organization [facility] [address] Care Team Providers Name Role Phone Leeanne Schultz MD Primary Care Provider Encounter Details Date Type Department Care Team Description 05/13/2020 Telephone Gastroenterology at [facility] [place] [address] Social History Tobacco Use Types Packs/Day Years Used Date Former Smoker Smokeless Tobacco: Never Used Alcohol Use Standard Drinks/Week Comments Yes 7 (1 standard drink = 0.6 oz pure alcoho l) Sex Assigned at Date Recorded Female 10/02/2020 6:58 PM EDT documented as of this encounter Miscellaneous Notes Telephone Encounter - Chanda Hayes - 05/13/2020 2:06 PM EST Spoke with patient about setting up her colonoscopy that is due, but she wants to think about it anddiscuss with her PCP as she was perforated at her last one. Patient has our number and will contact us if she wants to have this done. documented in this encounter Plan of Treatment Upcoming Encounters Date Type Specialty Care Team Description 03/14/2022 Office Visit Dermatology Berlin Edgar MD [facility] ER [address] [place], [place] [address] (Wo rk) documented as of this encounter Visit Diagnoses Not on filedocumented in this encounter Care Teams Group Chief Operator Relationship Specialty Start Date End Date Leeanne Schultz MD PCP - General 10/28/13 [address] [place] [address] documented as of this encounter
--- OUTSIDE RECORDS SUMMARY | 2021-11-23 01:52 | XMS_ITS | Encounter Summary ---
:1945 Author Organization [facility] [place] [address] Care Team Providers Name Role Phone Leeanne Schultz MD Primary Care Provider Encounter Details Date Type Department Care Team Description 12/16/2020 Hospital Encounter Gastroenterology at [facility] Driss Gilbert, [facility] Kwasi fernán[place] [address] [facility] [phone] [place] [address] Social History Tobacco Use Types Packs/Day Years Used Date Former Smoker Smokeless Tobacco: Never Used Alcohol Use Standard Drinks/Week Comments Yes 7 (1 standard drink = 0.6 oz pure alcoho l) Sex Assigned at Date Recorded Female 10/02/2020 6:58 PM EDT documented as of this encounter Last Filed Vital Signs Vital Sign Reading Time Taken Comments Blood Pressure 138/78 12/16/2020 3:00 PM EDT Pulse 66 12/16/2020 1:41 PM EDT Temperature 36.4 ??C (97.5 ??F) 12/16/2020 1:41 PM EDT Respiratory Rate 17 12/16/2020 3:00 PM EDT Oxygen Saturation 100% 12/16/2020 3:00 PM EDT Inhaled Oxygen Concentration - - Weight 62.6 kg (138 lb) 12/16/2020 1:41 PM EDT Height 170.2 cm (5' 7) 12/16/2020 1:41 PM EDT Body Mass Index 21.61 12/16/2020 1:41 PM EDT documented in this encounter Discharge Instructions Discharge InstructionsEdmar Melgoza RN - 12/16/2020 2:42 PM EDT Upper GI Endoscopy: What to Expect at Home Your Recovery You will be able to go home after your doctor or nurse checks to make sure you are not having any problems. You may have to stay overnight if you had treatment during the test. You may have a sore throat for a day or two after the test. This care sheet gives you a general idea about what to expect after the test. How can you care for yourself at home? Activity Rest when you feel tired. ?? You can do your normal activities when it feels okay to do so. Diet ?? Follow your doctor's directions for eating. ?? Unless your doctor has told you not to, drink plenty of fluids. This helps to replace the fluidsthat were lost during the prep. ?? Do not drink alcohol. Medicines ?? Your doctor will tell you if and when you can restart your medicines. He or she will also give you instructions about taking any new medicines. ?? If you take blood thinners, such as warfarin (Coumadin), clopidogrel (Plavix), or aspirin, be sure to talk to your doctor. He or she will tell you if and when to start taking those medicines again.Make sure that you understand exactly what your doctor wants you to do. ?? If polyps were removed or a biopsy was done during the test, your doctor may tell you not to take aspirin or other anti-inflammatory medicines for a few days. These include ibuprofen (Advil, Motrin) and naproxen (Aleve). ?? If you have a sore throat the day after the procedure, use an kjuu-skz-wrbkdyu spray to numb yourthroat. Sucking on throat lozenges and gargling with warm salt water may also help relieve your symptoms. Other instructions ?? For your safety, do not drive or operate machinery until the medicine wears off and you can think clearly. Your doctor may tell you not to drive or operate machinery until the day after your test. ?? Do not sign legal documents or make major decisions until the medicine wears off and you can think clearly. The anesthesia can make it hard for you to fully understand what you are agreeing to. Additional Information for Sedation Patients For patients who received sedation: ?? You may have received medications before and/or during your procedure which effects your judgement and reaction time. ?? Do not drive, operate machinery, drink alcoholic beverages or make important decisions for 24 hours. ?? Be careful on stairs as you may be unsteady on your feet. ?? You may eat a regular diet as tolerated. ?? Do not smoke if you are alone. ?? IV site: Slight redness or tenderness is normal, you can use a warm compress if you would like. If tenderness and/or redness increase or if foul drainage occurs, please contact your Doctor. Please call [phone] before 8pm Mon-Fri with problems, questions or concerns. If you call after 8pm or on weekends, call the Hospital at [phone] and ask to speak to the Public Health Outreach Worker blood bank laboratory professional and the saturation equipment operator will contact that person for you. When should you call for help? Call [phone] anytime you think you may need emergency care. For example, call if: ?? You passed out (lost consciousness). ?? You pass maroon or bloody stools. ?? You have trouble breathing. Call your doctor now or seek immediate medical care if: ?? You have pain that does not get better after you take pain medicine. ?? You are sick to your stomach or cannot drink fluids. ?? You have new or worse belly pain. ?? You have blood in your stools. ?? You have a fever. ?? You cannot pass stools or gas. Watch closely for changes in your health, and be sure to contact your doctor if you have any problems. Where can you learn more? [facility] View your After Visit Summary and more online at [email or web address] If you would like to provide feedback about your hospital experience, please call the Office of Patient and Family Relations at . If you have received this After Visit Summary in error, please immediately return it in person to the department, or notify the [facility] Privacy Office by calling toll free at between the hours of 8AM and 5PM to arrange for our retrieval of the documents at no cost to you. Content Version: 12.2 ?? 8147-5094 [employer]. Care instructions adapted under license by [facility]. If you have questions about a medical condition or this instruction, always ask your healthcare professional. [employer] disclaims any warranty or liability for your use of this information.Endoscopic Ultrasound (Oral): What to Expect At Home Your Recovery After you have an endoscopic ultrasound--a test to look for problems in the stomach, liver, gallbladder, and other organs--you will stay at the hospital or clinic for 1 to 2 hours. This will allow the medicine to wear off. You will be able to go home after your doctor or nurse checks to make sure you are not having any problems. You may have a sore throat for a day or two after the test. This care sheet gives you a general idea about what to expect after the test. How can you care for yourself at home? Activity ??? Rest when you feel tired. ?? You can do your normal activities when it feels okay to do so. Diet ?? Follow your doctor's directions for eating. ?? Unless your doctor has told you not to, drink plenty of fluids. ?? Do not drink alcohol. Medicines ?? Your doctor will tell you if and when you can restart your medicines. He or she will also give you instructions about taking any new medicines. ?? If you take blood thinners, such as warfarin (Coumadin), clopidogrel (Plavix), or aspirin, be sure to talk to your doctor. He or she will tell you if and when to start taking those medicines again.Make sure that you understand exactly what your doctor wants you to do. ?? If a biopsy was done during the test, your doctor may tell you not to take aspirin or other anti-inflammatory medicines for a few days. These include ibuprofen (Advil, Motrin) and naproxen (Aleve). ?? If you have a sore throat the day after the procedure, use an tigx-kqf-vruqjlt spray to numb yourthroat. Sucking on throat lozenges and gargling with warm salt water may also help relieve your symptoms. Other instructions ?? For your safety, do not drive or operate machinery until the medicine wears off and you can think clearly. Your doctor may tell you not to drive or operate machinery until the day after your test. ?? Do not sign legal documents or make major decisions until the medicine wears off and you can think clearly. The anesthesia can make it hard for you to fully understand what you are agreeing to. Additional Information for Sedation Patients For patients who received sedation: ?? You may have received medications before and/or during your procedure which effects your judgement and reaction time. ?? Do not drive, operate machinery, drink alcoholic beverages or make important decisions for 24 hours. ?? Be careful on stairs as you may be unsteady on your feet. ?? You may eat a regular diet as tolerated. ?? Do not smoke if you are alone. ?? IV site: Slight redness or tenderness is normal, you can use a warm compress if you would like. If tenderness and/or redness increase or if foul drainage occurs, please contact your Doctor. Please call [phone] before 8pm Mon-Fri with problems, questions or concerns. If you call after 8pm or on weekends, call the Hospital at [phone] and ask to speak to the Public Health Outreach Worker blood bank laboratory professional and the saturation equipment operator will contact that person for you. When should you call for help? Call [phone] anytime you think you may need emergency care. For example, call if: ?? You passed out (lost consciousness). ?? You pass maroon or bloody stools. ?? You have trouble breathing. Call your doctor now or seek immediate medical care if: ?? You have pain that does not get better after you take pain medicine. ?? You are sick to your stomach or cannot drink fluids. ?? You have new or worse belly pain. ?? You have blood in your stools. ?? You have a fever. ?? You cannot pass stools or gas. Watch closely for changes in your health, and be sure to contact your doctor if you have any problems. Where can you learn more? [facility] View your After Visit Summary and more online at [email or web address] If you would like to provide feedback about your hospital experience, please call the Office of Patient and Family Relations at . If you have received this After Visit Summary in error, please immediately return it in person to the department, or notify the [facility] Privacy Office by calling toll free at between the hours of 8AM and 5PM to arrange for our retrieval of the documents at no cost to you. Content Version: 12.2 ?? [phone] [employer]. Care instructions adapted under license by [facility]. If you have questions about a medical condition or this instruction, always ask your healthcare professional. [employer] disclaims any warranty or liability for your use of this information. documented in this encounter Medications at Time of Discharge Medication Sig Dispensed Refills Start Date End Date tretinoin (RETIN-A) 0.05 % Apply 1-2 nights per 45 g 06/14/2020 Cream week, working up to nightly. amoxicillin-clavulanate Take 1 tablet by 20 tablet 0 2017 (AUGMENTIN) 875-125 mg mouth 2 times daily. Tablet scopolamine Place 1 patch onto 6 patch 0 12/19/2015 (TRANSDERM-SCOP) 1.5 mg (1 the skin every 3 mg over 3 days) patch 3 days. dayIndications: Counseling about travel, H/O motion sickness pimecrolimus (ELIDEL) 1 % Apply topically 2 30 g 1 05/2015 Cream times daily. As need for redness / rash on face clonazePAM (KLONOPIN) 1 mg 0 4 tablet amlodipine (NORVASC) 10 mg Take 10 mg by mouth 0 tablet daily. buPROPion (WELLBUTRIN SR) Take 150 mg by mouth 0 09/12/2010 150 mg 12 hr tablet daily. Albuterol, Refill, 90 Inhale 2 puffs into 0 09/12 mcg/Actuation Aero the lungs every 4 hours as needed. citalopram (CELEXA) 40 mg Take 40 mg by mouth 0 0 09/12/2010 tablet nightly. levothyroxine (SYNTHROID) Take 75 mcg by mouth 0 150 mcg tablet daily. zolpidem (AMBIEN) 10 mg Take 5 mg by mouth 0 09/03 tablet nightly. documented as of this encounter H&P Notes Porfirio Fountain MD - 12/16/2020 1:54 PM EDT Patient Name: Leeanne Bush Patient Age: 75 y.o. 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 Patient Active Problem List Diagnosis Code ??? Basal cell carcinoma C44.91 ??? Personal history of malignant melanoma of skin Z85.820 ??? Melanoma C43.9 ??? Health care maintenance Z00.00 ??? Abdominal pain R10.9 ??? Pelvic organ prolapse quantification stage 3 rectocele N81.6 EXAM: HEENT: Airway examined, oropharynx clear Mallampati Score: per anesthesia LUNGS: Clear to auscultation HEART: Regular rate and rhythm, normal S1, S2 ABDOMEN: Normal bowel sounds, soft, non tender, non distended A/P Proceed with the planned endoscopic procedure. ASA 3 - Patient with moderate systemic disease with functional limitations Sedation Plan: anesthesia Risks and benefits of the procedure explained to the patient in detail. Consent signed. documented in this encounter Miscellaneous Notes Op Note - rDiss Gilbert MD - 12/16/2020 2:15 PM EDT DH Operative Note Patient Name: Leeanne Bush : [id number] MR#: [id number] Case Date: 12/16/2020 Surgeon: Surgeon(s) and Role: * Driss Gilbert MD - Primary * Porfirio Fountain MD - Fellow Procedure(s): UPPER EUS- ENDOSCOPIC ULTRASOUND EGD, UPPER GI ENDOSCOPY Please see Provation report for details. documented in this encounter Plan of Treatment Upcoming Encounters Date Type Specialty Care Team Description 03/14/2022 Office Visit Dermatology [place] Edgar MD [facility] [address], [place] [address] (Wo rk) documented as of this encounter Procedures Procedure Name Priority Date/Time Associated Diagnosis Comme nts EGD, UPPER GI 12/16/2020 2:08 PM cervical subepithelia l ENDOSCOPY EDT nodule vs extrinsic compression UPPER EUS- 12/16/2020 2:08 PM cervical subepithelial ENDOSCOPIC EDT nodule vs extrinsic ULTRASOUND compression UPPER Routine 12/16/2020 1:53 PM Results f or this EUS-ENDOSCOPIC EDT procedure are in ULTRASOUND the results section. documented in this encounter Results UPPER EUS-ENDOSCOPIC ULTRASOUND (12/16/2020 1:53 PM EDT) Component Value Ref Test Analysis Performed At [facility] gist Range Method Time Signature UPPER [facility] ENDOSCOPIC Endoscopy ULTRASOUND _ Procedure Date: 12/16/2020 1:53 PM ? Patient Name: Leeanne Bush ? N: [id number] ? Date of : 1945 ? Age: 75 ? Order #: [id number] ? Instrument Name: [id number] ? Procedure: ? Upper EUS Indications: ? 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 ? Extrinsic compression Providers: ? Driss Gilbert, Porfirio Fountain, ? Barber Flores RN Referring MD: ?Leeanne Schultz MD Medicines: ? Propofol per Anesthesia Complications: ? No immediate complications. Procedure: ? Pre-Anesthesia Assessment: ? - Prior to the procedure, a H istory ? and Physical was performed, a nd ? patient medications and aller gies ? were reviewed. The patient is ? competent. The risks and bene fits of ? the procedure and the sedatio n ? options and risks were discus sed with ? the patient. All questions we re ? answered and informed consent was ? obtained. Patient identificat ion and ? proposed procedure were verif ied by ? the physician in the pre-proc edure ? area. Mental Status Examinati on: ? alert and oriented. Airway ? Examination: normal oropharyn geal ? airway and neck mobility. Res piratory ? Examination: clear to auscult ation. ? CV Examination: normal. Proph ylactic ? Antibiotics: The patient does not ? require prophylactic antibiot ics. ? Prior Anticoagulants: The pat ient has ? taken no previous anticoagula nt or ? antiplatelet agents. ASA Grad e ? Assessment: II - A patient wi th mild ? systemic disease. After revie wing the ? risks and benefits, the patie nt was ? deemed in satisfactory condit ion to ? undergo the procedure. The an esthesia ? plan was to use monitored ane sthesia ? care (MAC). Immediately prior to ? administration of medications , the ? patient was re-assessed for a dequacy ? to receive sedatives. The hea rt rate, ? respiratory rate, oxygen satu rations, ? blood pressure, adequacy of p ulmonary ? ventilation, and response to care ? were monitored throughout the ? procedure. The physical statu s of the ? patient was re-assessed after the ? procedure. ? The procedure, indications, b enefits, ? risks and alternatives were e xplained ? to the patient. Specifically ? discussed were potential ? complications including, but not ? limited to, bleeding, perfora tion, ? infection, missing a cancer, and ? adverse medication reactions. The ? Endoscope was introduced thro ugh the ? mouth, and advanced to the se cond ? part of duodenum. The patient ? tolerated the procedure well. The ? procedure, indications, benef its, ? risks and alternatives were e xplained ? to the patient. Specifically ? discussed were potential ? complications including, but not ? limited to, bleeding, perfora tion, ? infection, missing a cancer, and ? adverse medication reactions. The ? patient tolerated the procedu re well. ? Findings: ? ENDOSCOPIC FINDING: : ? The examined esophagus was normal. ? The entire examined stomach was normal. ? The examined duodenum was normal. ? ENDOSONOGRAPHIC FINDING: : ? Endosonographic imaging in the esophagus showed no ? intramural (subepithelial) lesion. ? There was a prominent vertebral body causing mild ? extrinsic compression of the cervical esophagus ? Moderate Sedation: ? Not applicable - See Anesthesia documentation Impression: ?- Normal esophagus. No intramural ? lesion was seen. A slightly p rominent ? vertebral body was causing mi ld ? extrinsic compression in the cervical ? esophagus ? - Normal stomach. ? - Normal examined duodenum. Recommendation: ?- Discharge patient to home. ? - Resume previous diet. ? - Return to referring physici an. ? Procedure Code(s): ?? --- Professional --- ? 98157, Esophagogastroduodenos copy, ? flexible, transoral; with end oscopic ? ultrasound examination limite d to the ? esophagus, stomach or duodenu m, and ? adjacent structures Diagnosis Code(s): ?? --- Professional --- ? 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 --- Technical --- ? 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 esophagus CPT copyright 2019 [employer]. All rights reserved. The codes documented in this report are preliminary and upon laboratory clerk review may be revised to meet current compliance requirements. Attending Participation: ? I personally performed the entire procedure. ? Driss Gilbert, 12/16/2020 2:39:57 PM Number of Addenda: 0 Note Initiated On: 12/16/2020 1:53 PM Specimen (Source) Anatomical Collection Method Collection Time Re ceived Time Location / / Volume Laterality 12/16/2020 1:53 PM EDT Leeanne Schultz MD GENERAL SURGICAL ORDERABLES Performing Organization Address City/State/ZIP Code Phon e Number [employer]OVATION documented in this encounter Visit Diagnoses Not on filedocumented in this encounter Administered Medications Inactive Administered Medications - up to 3 most recent administrations Medication Order MAR Action Action Date Dose Rate Site lactated ringers infusion New Bag 12/16/2020 1:53 PM EDT 100 mL/hr 100 mL/hr 100 mL/hr, Intravenous, CONTINUOUS, Starting on Sat12/16/20 at 1400, Until Sat12/16/20 at 1512, Endoscopy (Day of Procedure) documented in this encounter Active and Recently Administered Medications Times are shown in EDT. Continuous Medication Order 12/14/2020 12/15/2020 12/16/2020 lactated ringers infusion (CANCELED) 1353 (New Bag - Provider: Fredrick Golden RN) 100 mL/hr, at 100 mL/hr, Intravenous, CO NTINUOUS, Starting on Sat12/16/20 at 1400, Until Sat12/16/20 at 1512, Endo (Day of Procedure) documented in this encounter Care Teams Instructional Specialist Relationship Specialty Start Date End Date Leeanne Schultz MD PCP - General 10/28/13 [address] [place] [address] documented as of this encounter
--- OUTSIDE RECORDS SUMMARY | 2021-11-23 01:52 | XMS_ITS | Encounter Summary ---
:1945 Author Organization [place] [address] Care Team Providers Name Role Phone Leeanne Schultz MD Primary Care Provider Reason for Visit Reason Onset Date Comments Results 04/24/2021 FRANK mutation Encounter Details Date Type Department Care Team Description 04/24/2021 Telephone Hematology and Elisa Sexton L GC Results (FRANK mutation) Oncology at [facility] [address] HEMATOLOGY/[place] [address] DEPT. [phone] [place], [place] [address] (Wo rk) Social History Tobacco Use Types Packs/Day Years Used Date Former Smoker Smokeless Tobacco: Never Used Alcohol Use Standard Drinks/Week Comments Yes 7 (1 standard drink = 0.6 oz pure alcoho l) Sex Assigned at Date Recorded Female 10/02/2020 6:58 PM EDT documented as of this encounter Miscellaneous Notes Telephone Encounter - Elisa Sexton LGC - 04/25/2021 10:03 AM EST This test result was discussed with the patient by phone. A copy of the test results have been scanned in the medical record and sent to Leeanne. A summary of the results is provided below. Please be advised that [place] law requires that all health care workers respect the confidentiality of thisinformation and not pass it along to other health care providers, insurance companies, or individuals without the written permission of the patient. The [facility] Cancer Program welcomes any questions about these matters. Our phone number is: [phone]. 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 Following are the results of this test. 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 No other mutation was detected. The following 84 genes were evaluated for sequence changes and exonic deletions/duplications: AIP, ALK, APC, FRANK, AXIN2, BAP1, BARD1, BLM, BMPR1A, BRCA1, BRCA2, BRIP1, CASR, CDC73, CDH1, CDK4, CDKN1B, CDKN1C, CDKN2A (p14ARF), CDKN2A (k21VEK3K), CEBPA, CHEK2, CTNNA1, DICER1, DIS3L2, EGFR, EPCAM(Deletion/duplication testing only), FH, FLCN, GATA2, GPC3, GREM1 (Promoter region deletion/duplication testing only), HOXB13, HRAS, KIT, MAX, MEN1, MET, MITF, (c.952G>A,P.Upk540Bhd variant only), MLH1, MSH2, MSH3, MSH6, MUTYH, NBN, NF1, NF2, NTHL1, PALB2, PDGFRA, PHOX2B, PMS2, POLD1, POLE, POT1, HQSXG4W, PTCH1, PTEN, RAD50, RAD51C, RAD51D, RB1, RECQL4, RET, RUNX1, SDHA, SDHAF2, SDHB, SDHC, SDHD, SMAD4, SMARCA4, SMARCB1, SMARCE1, STK11, SUFU, TERC, TERT, NUOT561, TP53, TSC1, TSC2, VHL, WRN, and WT1. A variant of uncertain significance (VUS) in the MUTYH gene, specifically c.326G>A (p.Mju008Php),was detected. Interpretation: FRANK: The most significant consequences of carrying one non-working copy of the FRANK gene are increased risks for breast, ovarian and pancreatic cancer. For a female who has not had cancer, lifetime risk of breast cancer with the specific mutation detected in Ivet is approximately 69% compared to a ~12% lifetime risk for the general [place] population. The absolute risk for ovarian cancer is less than 3% compared to the general population's risk of about 1.5%. The risk for pancreatic cancer is about 5-10% compared to about 1-2% in the general population. The risk for prostate cancer may be increased but this is not certain. There are some reports that mutations in FRANK may also be associated with gastric and colon cancer however this date is preliminary and insufficient to make a determination about this possible relationship. It is important to keep in mind that not all individuals who inherit a mutation in the FRANK gene will develop cancer. Mutations in FRANK are not reported to be associated with melanoma so this result does not explain thepersonal and family history of melanoma. We reviewed dominant inheritance. With this type of inheritance you only need to inherit one copy ofthe altered gene to have an increased risk for cancer. Since we all have 2 copies of each gene, one from each parent, there is a 50% chance for each child of a parent who has the mutation to inherit the normal copy of the gene and not be at increased risk for the cancer running in the family. There isalso a 50% chance for each child to inherit the altered copy of the gene and therefore be at increased risk for cancer. ??? Ivet's daughter has a 50% (1/2) chance of having inherited the altered gene. She should consider testing since if she is found to have inherited this mutation it may affect recommendations relatedto screening for breast cancer. Ivet's son has already had testing. ??? Each of Ivet's siblings has a 50% chance of having inherited the altered gene and should consider testing. The children of Ivet's sister who is should also be informed so they can consider testing. ??? Based on the family history, this gene alteration was likely inherited from Ivet's mother sinceshe had pancreatic cancer. However, since we can not be certain of this, relatives on both sides of the family should be informed of this finding so they can consider testing. We are happy to see family members here for genetic counseling and testing. Our scheduling secretarycan be reached at [phone]. Family members can also go to the website of the National Society ofGenetic Counselors at www.nsgc.org in order to find a counselor in their area or contact [facility] directly at to speak with one of their genetic counselors. If an individual inherits two non-working copies of the FRANK gene, one from each parent, it can lead to a rare, autosomal recessive, childhood onset neurodegenerative disorder affecting multiple body systems. Difficulty with coordinating movements (ataxia) begin in event mgr, usually before age 5. This condition is called ataxia-telangiectasia. Should any relatives in reproductive age test positive for the FRANK mutation, they may want their partner to be tested, in order to find out if they are at risk of having a child with ataxia telangiectasia. Reproductive options are available to those interested in preventing passing this condition to their future children. A consultation with a prenatalgenetic counselor may be useful for any relatives who may be concerned about reproductive risks. Variant of Uncertain Significance It is unclear at this time whether the MUTYH VUS identified in Leeanne is a cancer-associated mutationor a benign change in the gene with no increased cancer risks. [employer] is continually collecting andanalyzing their data, in an effort to reclassify these variants as either cancer-causing mutations or benign changes. It is important to remember that a vast majority of variants of uncertain significance are normal, benign changes in the gene. Even if the variant in the MUTYH gene turns out to be pathogenic, mutations in this gene are only a problem if you inherit one from each parent. Ivet has onenormal copy of MUTYH and one with this variant. We will be contacted by the laboratory, in the future, if a reclassification is made and we would then notify Leeanne. It is important that Leeanne's phone number and mailing address stay updated in the [facility] system, in order for us to reach her in the future, should an amended report be issued. Screening Recommendations: Breast cancer screening ??? Monthly self breast exams and semiannual clinical breast exams ??? Annual mammograms with consideration of tomosynthesis starting at age 40. ??? Consideration of annual breast MRI screening (if found to have dense breasts on mammogram) starting at age 40. Ideally, this should be performed at a facility that has breast MRI directed biopsy capability. ?? Prophylactic, risk-reducing bilateral mastectomy may be considered, although evidence for this recommendation is insufficient so should be based on family history. Ovarian cancer screening ??? Annual pelvic exams ??? There is insufficient evidence to recommend risk reducing salpingo- oophorectomy in FRANK carriers at this time. Individuals with a family history of ovarian cancer should be managed based on their family history. Pancreatic cancer screening Some families with FRANK mutations also show an increased incidence of pancreatic cancer. The two mainrisk factors in the general population for pancreatic cancer are smoking and heavy drinking. Although there are no clear data on the increased risk of combining smoking and heavy drinking with being anATM carrier, this test result should be thought of as another good reason, among many others, for Ivet not to smoke or drink heavily. There is no established screening for pancreatic cancer and current expert opinion only recommends screening for pancreatic cancer in FRANK carriers with a 1st or 2nd degree relative with pancreatic cancer. Since Ivet's mother had pancreatic cancer, she may wish to consider screening for this. When she returns from [place] Ivet could meet with Dr. Jacqueline Luo, elementary tutor at [facility], to learn more about the options for screening and the potential benefits and limitations. Colon cancer screening ?? Periodic screening as recommended by Ivet's elementary tutor or primary care provider. Skin cancer screening ?? Skin cancer screening and sun protection are important for everyone, regardless of genetic predisposition. ?? Dermatologic exams as recommended by Ivet's cardiology fellow. Support Ivet may find the online support organization called [employer]: Facing Our Risk of Cancer Empowered a helpful resource. This can be found at [employer].org ClinicalTrials.gov website will have the most up-to-date information of clinical trials available tothose who have a gene mutation. It can be difficult for people to predict how they will react to learning about the presence of an altered gene in their families and in themselves. A variety of feelings may occur after learning that one carries a gene alteration. Some individuals experience a sense of relief from learning their personal cancer risk and gene status. Testing may bring up feelings about other relatives who had cancer.It is not uncommon to experience an increase in anxiety, sleeplessness or depression, as a result ofworries about one???s current and future health. One may also worry that other family members might have inherited the altered gene. For some, a consultation with a psychologist, manager social, or psychiatrist may be helpful in dealing with feelings that may arise from genetic testing. If Ivet would like a referral, we can help to try to recommend a therapist who is familiar with issues surrounding genetic conditions. Follow-up We discussed the option of a follow-up appointment with the Familial Cancer Program, when Ivet returns from [place], for further discussion of this result. Follow-up can be done either in person or via telehealth. Ivet will contact us at [phone] if she decides she would like to schedule an appointment. As discussed above, Ivet may wish to meet with Dr. Jacqueline Luo for discussion about potentialscreening for pancreatic cancer. Her office can be reached at [phone]. documented in this encounter Plan of Treatment Upcoming Encounters Date Type Specialty Care Team Description 03/14/2022 Office Visit Dermatology [place] Edgar MD [facility] [address]NA[address] [place], [place] [address] (Wo rk) documented as of this encounter Visit Diagnoses Not on filedocumented in this encounter Care Teams Welder Repair Relationship Specialty Start Date End Date Leeanne Schultz MD PCP - General 10/28/13 [address] [place] [address] documented as of this encounter
--- OUTSIDE RECORDS SUMMARY | 2021-11-23 01:52 | XMS_ITS | Encounter Summary ---
:1945 Author Organization [facility] [place] [address] Care Team Providers Name Role Phone Leeanne Schultz MD Primary Care Provider Encounter Details Date Type Department Care Team Description 12/22/2019 Telephone Urology at [facility] Megan Plaza, [facility] Kwasi fernán[place] [address] [facility] [phone] UROLOGY DEPT. [place], [place] [address] (Wo rk) Social History Tobacco Use Types Packs/Day Years Used Date Former Smoker Smokeless Tobacco: Never Used Alcohol Use Standard Drinks/Week Comments Yes 7 (1 standard drink = 0.6 oz pure alcoho l) Sex Assigned at Date Recorded Female 10/02/2020 6:58 PM EDT documented as of this encounter Miscellaneous Notes Telephone Encounter - Megan Lazo - 12/22/2019 4:08 PM EDT Patient declined to reschedule appointment with Dr. Plaza from August 2019. She will call us if/when she'd like to be seen. documented in this encounter Plan of Treatment Upcoming Encounters Date Type Specialty Care Team Description 03/14/2022 Office Visit Dermatology Edgar, [place] J , MD [facility] [address]IANA CANAS-DER[address] [place], [place] [address] (Wo rk) documented as of this encounter Visit Diagnoses Not on filedocumented in this encounter Care Teams Spaghetti Press Helper Relationship Specialty Start Date End Date Leeanne Schultz MD PCP - General 10/28/13 [address] [place] [address] documented as of this encounter
--- OUTSIDE RECORDS SUMMARY | 2021-11-23 01:52 | XMS_ITS | Encounter Summary ---
:1945 Author Organization [facility] [address] Care Team Providers Name Role Phone Leeanne Schultz MD Primary Care Provider Reason for Visit Reason Comments Advice Only Encounter Details Date Type Department Care Team Description 11/21/2018 Office Visit Dermatology at Jan Page MD [facility] [place] [address] Encounter for Kiko Barrera Lexie, CCMA cosmetic procedure [address] [place] [address] Social History Tobacco Use Types Packs/Day Years Used Date Former Smoker Smokeless Tobacco: Never Used Alcohol Use Standard Drinks/Week Comments Yes 7 (1 standard drink = 0.6 oz pure alcoho l) Sex Assigned at Date Recorded Female 10/02/2020 6:58 PM EDT documented as of this encounter Progress Notes Kiko Figueroa - 11/21/2018 10:30 AM EDT DERMATOLOGY LANDSCAPE FOREMAN NOTE Date of service: 11/21/2018 Leeanne Bush : 1945 SUPERVISED BY: Angelita Burleson MD Chief Complaint Patient presents with ??? Advice Only ROS General: feeling well Skin: denies other skin complaints Breast feeding: no Trying to get : no HSV Hx and Details n/a HPI Leeanne Bush is a 73 y.o. year old female . Here today for: Skin care Exam: Patient with browns on face, currently does not have a skin care regimen. A/P: # Cosmetic Dermatology - pt receives cosmetic dermatology care - see 11/21/2018 note for cosmetic dermatology assessment and plan # Chemoprevention/correction: Emphasized value of retinoid based skin care system to amplify and maintain benefits of any anti aging plan/procedures. -retinoid: Tretinoin 0.05% date started: 11/21/2018 -ZO skincare regimen: regimen or products: Mild Gel Cleanser, Lithuanian, Vashe toner, Cotz reviewed by:DW date: 11/21/2018 -instructions in AVS dated 11/21/2018 -discussed importance of meticulous sun protection # Photography: NEEDS PHOTOS Patient charged today: no charge FOLLOW UP WHEN: Fall 2018 FOR WHAT: skin care f/u LENGTH OF VISIT: 30 min NUMBING?: no PICTURES NEEDED? yes COST: no charge NOTES: Kiko Figueroa Television Maintenance Worker documented in this encounter Plan of Treatment Upcoming Encounters Date Type Specialty Care Team Description 03/14/2022 Office Visit Dermatology Berlin Edgar MD [facility] [address]NAS-DERMAT [place], [place] [address] (Wo rk) documented as of this encounter Visit Diagnoses Diagnosis Encounter for cosmetic procedure documented in this encounter Care Teams Ballistics Teacher Relationship Specialty Start Date End Date Leeanne Schultz MD PCP - General 10/28/13 [address] [place] [address] documented as of this encounter
--- OUTSIDE RECORDS SUMMARY | 2021-11-23 01:52 | XMS_ITS | Encounter Summary ---
:1945 [place] [address] Care Team Providers Name Role Phone Leeanne Schultz MD Primary Care Provider Encounter Details Date Type Department Care Team Description 09/25/2021 Office Visit Dermatology at [facility] Berlin Edgar S CC (squamous cell carcinoma), leg, right; Road SK (seborrheic keratosis); [address] [facility] Multiple benign nevi; [place] [address] [address] Sidhu; [phone] [facility] History of anson noma; -DERMATOLOGY History of nonmelanoma skin cancer; [place], [place] [address] History of dysplastic nevus Social History Tobacco Use Types Packs/Day Years Used Date Former Smoker Smokeless Tobacco: Never Used Alcohol Use Standard Drinks/Week Comments Yes 7 (1 standard drink = 0.6 oz pure alcoho l) Sex Assigned at Date Recorded Female 10/02/2020 6:58 PM EDT documented as of this encounter Progress Notes Berlin Edgar MD - 09/25/2021 11:30 AM EDT Images from the original note were not included. DEPARTMENT OF DERMATOLOGY Medical Dermatology Clinic Provider: Berlin Edgar MD Patient's preferred name Ivet Preferred contact method for results []?myDH []?Letter [x]?Phone: Detailed phone message OK? yes ?? PAST MEDICAL HISTORY Y/N Date, location, treatment Melanoma y 08/1999: Melanoma.left lateral cheek in , with negative SLNB. The Breslow depth was 1.24 mm. 1999: MIS on the left side of her back. 08/2007, MIS treated in [place] ? Right lateral thigh. 07/17/2014,??MIS, left upper arm, WLE 2014,??MIS, right forearm, WLE 10/15/2014 Malignant melanoma, depth of 0.25 mm, left lateral arm, excised 11/19/2014 Dysplastic nevi y Left upper [...] mid medial alex, SCC s/p ED&C BCC y Left leg BCC, 10/1999 (outside path) Right shoulder BCC, 04/2000 (outside path) Left arm, BCC, 10/2000 (outside path) Left upper chest, BCC, 11/2001 (outside path) 2009 Basal cell carcinoma on her left mid back, excised AKs y ?? Blistering sunburns or tanning bed use y She grew up in [place] with a history of extensive sun exposure. Other relevant past medical history (i.e. eczema, psoriasis, birthmarks, immunosuppression) y Knee replacement ??- October 2017?? Perioral dermatitis ? FAMILY HISTORY Y/N If yes, details Melanoma y 2 brothers NMSC n ?? Other relevant family history y Pancreatic cancer - Mother?? SOCIAL HISTORY Retired Diagnosis or treatment significantly limited by social determinants of health? No?? History of Present Illness: Leeanne Bush is a 76 y.o. Patient returns to clinic today for a full skin exam and to have a biopsy proven SCC treated on her right med medial alex. ED&C was discussed, she has a spot on the left thigh and left lower leg that she would like checked, spot on the rightcheek that she has . Last visit at Dermatology: 09/11/2021 Last visit with this provider: 03/21/2021 Medications: Reviewed in eD-H Allergies: Reviewed in eD-H Skin Examination: Full skin examination: Patient asked to undress to their comfort level. Verbalized that the provider???s preference is that the patient remove all clothing and that the provider will not examine areas patient elects to keep covered. Patient elects to keep underwear on and have the following examined: s calp, hair, face, ears, neck, chest, axillae, abdomen, back, and upper and lower extremities. Genitalia and buttocks were not examined. Assessment/Plan # Biopsy Proven SCC - 1.0 cm well healed scar on the right medial alex Procedure: ED&C Discussed with patient risks and benefits of cosmesis (scar, dyspigmentation, scar spread,keloid), pain, keloid/hypertrophic scar, bleeding, infection. Patient verbally understands and elects for ED&C. -Time Out Performed: Full Name, , and site(s) confirmed with patient -Site was prepped in sterile fashion with Alcohol. Anesthesia with 1% lidocaine + 1:100,0000 epinephrine. The entire lesion plus a small margin was treated by curettage and electrodesiccation. Post-curettage defect size:1.4 cm. No complications. Wound dressed. Expectations (including discomfort management)and wound care reviewed. # Seborrheic Keratoses - stuck on, waxy papules on the trunk and extremities - Benign. No treatment needed. #. Benign Nevi - Scattered medium brown, evenly pigmented macules and papules on the trunk and extremities with reassuring pigment pattern on dermoscopy. - Discussed benign nature of lesions and provided reassurance. Will continue to monitor. ?? #. Lentigines - Scattered light-brown, evenly pigmented, well-demarcated macules on sun-exposed areas of the trunk and extremities. - No worrisome pigmented lesions. Discussed benign nature of lesions and provided reassurance. Will continue to monitor. #. History of Melanoma, DN, NMSC - Well-healed scars per skin history. - No evidence of recurrence; will continue to monitor. ?? RTC: 6 months for full skin exam []Note routed to secretary book keeper []Recall placed in scheduling system [x]Appointment scheduled at checkout Scribe attestation: Miguel Angel Evans CMA has performed the documentation for this encounter in the presence of and acting as a scribe for Berlin Edgar MD. I performed the above scribed service and agree with the accuracy of the documentation in this encounter. Reviewed and signed by: Berlin Edgar MD Dermatology [facility] documented in this encounter Plan of Treatment Upcoming Encounters Date Type Specialty Care Team Description 03/14/2022 Office Visit Dermatology Berlin Edgar MD [facility] [address]IANA CANAS[address]DER[address] [place], [place] [address] (Wo rk) documented as of this encounter Visit Diagnoses Diagnosis SCC (squamous cell carcinoma), leg, righ t SK (seborrheic keratosis) Other seborrheic keratosis Multiple benign nevi Benign neoplasm of skin, site unspecifie d Lentigines Other dyschromia History of melanoma Personal history of malignant melanoma o f skin History of nonmelanoma skin cancer Personal history of other malignant neop lasm of skin History of dysplastic nevus Personal history of diseases of skin and subcutaneous tissue documented in this encounter Care Teams Route Driver Salesperson Relationship Specialty Start Date End Date Leeanne Schultz MD PCP - General 10/28/13 [address] [place] [address] documented as of this encounter
--- OUTSIDE RECORDS SUMMARY | 2021-11-23 01:52 | XMS_ITS | Encounter Summary ---
:1945 Author Organization [facility] [place] [address] Care Team Providers Name Role Phone Leeanne Schultz MD Primary Care Provider Encounter Details Date Type Department Care Team Description 09/25/2018 [facility]; [place] FONSECA MD Multiple benign nevi; [address] [facility] EIC (epidermal inclusion cys t); [place] [address] [address] History of basal cell carcinoma; [phone] [facility] [place] History of anson noma; [address] History of melanoma in situ; [place], [place] [address] Skin exam for malignant neoplasm; [phone] Sun-damaged ski n (Work) Social History Tobacco Use Types Packs/Day Years Used Date Former Smoker Smokeless Tobacco: Never Used Alcohol Use Standard Drinks/Week Comments Yes 7 (1 standard drink = 0.6 oz pure alcoho l) Sex Assigned at Date Recorded Female 10/02/2020 6:58 PM EDT documented as of this encounter Progress Notes Tegan Kenny, DULCE - 09/25/2018 9:45 AM EDT DERMATOLOGY ESTABLISHED PATIENT CLINIC NOTE Date of service: 09/25/2018 Leeanne Bush : 1945 Provider: Cm Kaminski MD PROBLEM: FSE SKIN HISTORY: Knee replacement - October 2017 Okay to leave detailed voice message with [...] back. ? August 2007, MIS treated in [place] ? Right lateral thigh. 6. 10/2006 Right lower back, mild to moderate DN , Excised 7. She grew up in [place] with a history of extensive sun exposure. [...] 04/14/2018: Right lateral calf, SCCis (ED&C, 04/24/2018) HPI Leeanne Bush is a 73 y.o. female. Patient is here today for a FSE. She states that she does not have any new or concerning spots today. She protects her skin and monitors her pigmented lesions Pt last seen on 04/24/19 by Esmer Palacios and 09/10/17 by us Procedure Screening Questions: Allergy to lidocaine or epinephrine: No Blood thinners: No Pacemaker/defibrillator:??No Heart valves:??No Joint replacements:??Knee - October 2017 ADR: Allergies Allergen Reactions ??? Shellfish Derived Hives and Other (See Comments) Tongue swelling too ??? Nitrofurantoin Monohyd/M-Cryst Nausea And Vomiting CURRENT MEDICATIONS: Current Outpatient Medications Medication Sig Dispense Refill [...] No current facility-administered medications for this visit. PROBLEM LIST: Patient Active Problem List Diagnosis Code ??? Basal cell carcinoma C44.91 ??? Personal history of malignant melanoma of skin Z85.820 ??? Melanoma C43.9 ??? Health care maintenance Z00.00 ??? Abdominal pain R10.9 ROS General: feeling well. Oriented X 3. Skin: denies other skin complaints EXAM General: NAD, pleasant, cooperative Skin: Patient was asked to undress to the level of her comfort. Verbalized that the provider's preference is for the patient to remove all clothing and that the provider will not examine areas patient elects to keep covered. Patient's decision was to remove bra and keep underwear on and have the following examined: skin of the scalp, hair, face, ears, neck, chest, breasts, abdomen, back, axillae, upper and lower extremities, hands, and feet. Significant skin findings: A. Sun-exposed areas of the trunk and extremities: Scattered 0.3-0.6 cm light- brown, evenly pigmented, well-demarcated macules. B. Trunk and extremities: Multiple 0.3-0.5 cm medium-brown, evenly-pigmented macules and papules. All with regular pigment pattern on dermoscopy. No pigmented lesions suspicious for melanoma. C. Mid back: Cystic subcutaneous nodule with central/lateral punctum D. Well-healed surgical scar(s) as per skin history - S/P multiple skin cancers - melanoma, BCC and SCC- No repigmentation or lymphadenopathy. E. Cosmetic skin concerns- photoaging and pigmentary problems on face She would like to address this with Dr Burleson ASSESSMENT/PLAN: A. Lentigines- scattered on sun exposed areas - Discussed benign nature of lesions and provided reassurance. No treatment necessary at this time. - Discussed nature of sun-induced photo-aging and skin cancers. Advised sun avoidance, protective clothing, and use of SPF 30+ broad-spectrum sunscreens. - Instructed patient to observe closely for skin damage/changes and call if such occur. B. Benign-Appearing Nevi- trunk and extremities - No atypical lesions or features worrisome for malignancy. - Advised patient to watch for anything new or changing. Discussed changes (bleeding, pain, change in color or shape) that should prompt re-evaluation.?? - Will continue to monitor. C. Epidermal Inclusion Cyst- mid-back - Discussed benign nature of lesion and provided reassurance. No treatment necessary at this time. D. H/O BCC's, SCC and melanoma Scars noted - NER; will continue to monitor. E. Cosmetic skin concerns - We discussed Tretinoin 0.05% cream, but would delay starting until she sees Dr Burleson and gets her recommendation. - Suggested consultation with Dr. Burleson to discuss cosmetic treatment options. - Informed patient of $150 consultation fee, $100 of which will be applied to the patient's first cosmetic procedure if booked within 6 months of consultation. - Patient's main concern: facial rhytids - Scheduled before exiting. RTC - RTC in [address] Ramirez and then 6 months with myself for a full skin exam; sooner if needed. Appointments scheduled before exiting. Instructed patient to call with questions or concerns. Note initiated by: DULCE Gutierres, Clinical Scribe has performed the documentation for this encounter in the presence of and acting as a scribe for Cm Kaminski MD. I performed the above scribed service and agree with the accuracy of the documentation in this encounter. Cm Kaminski MD Section of Dermatology [facility] documented in this encounter Plan of Treatment Upcoming Encounters Date Type Specialty Care Team Description 03/14/2022 Office Visit Dermatology [place] Edgar MD [facility] DR DIANA CANAS-DERMAT [place], [place] [address] (Wo rk) documented as of this encounter Visit Diagnoses Diagnosis Lentigines Other dyschromia Multiple benign nevi Benign neoplasm of skin, site unspecifie d EIC (epidermal inclusion cyst) Sebaceous cyst History of basal cell carcinoma Personal history of other malignant neop lasm of skin History of melanoma Personal history of malignant melanoma o f skin History of melanoma in situ Personal history of malignant melanoma o f skin Skin exam for malignant neoplasm Screening for malignant neoplasm of the skin Sun-damaged skin 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
--- OUTSIDE RECORDS SUMMARY | 2021-11-23 01:52 | XMS_ITS | Encounter Summary ---
:1945 Author Organization [facility] [place] [address] Care Team Providers Name Role Phone Leeanne Schultz MD Primary Care Provider Encounter Details Date Type Department Care Team Description 10/03/2018 Refill Dermatology at [facility] Cm Corbett III, MD [address] [facility] [place] [address] [facility] [phone] [place], [place] [address] (Wo rk) Social History Tobacco Use Types Packs/Day Years Used Date Former Smoker Smokeless Tobacco: Never Used Alcohol Use Standard Drinks/Week Comments Yes 7 (1 standard drink = 0.6 oz pure alcoho l) Sex Assigned at Date Recorded Female 10/02/2020 6:58 PM EDT documented as of this encounter Miscellaneous Notes Telephone Encounter - CarmenAuroraMelisa R - 10/03/2018 9:34 AM EDT Patient contacted the clinic today following up regarding a prescription for Retin-A. Per patient this was discussed during her 09/25 appointment. She would prefer to go forward with the medication before seeing Dr. Burleson. Please send script to [facility] [place], [place]. Patient can be reached at [phone] with any questions or concerns. documented in this encounter Plan of Treatment Upcoming Encounters Date Type Specialty Care Team Description 03/14/2022 Office Visit Dermatology [place] Edgar MD [facility] [address] DIANA CANAS-DER[address] [place], [place] [address] (Wo rk) documented as of this encounter Visit Diagnoses Not on filedocumented in this encounter Care Teams Finance And Administration Manager Relationship Specialty Start Date End Date Leeanne Schultz MD PCP - General 10/28/13 [address] [place] [address] documented as of this encounter
--- OUTSIDE RECORDS SUMMARY | 2021-11-23 01:52 | XMS_ITS | Encounter Summary ---
:1945 [place] [address] Care Team Providers Name Role Phone Leeanne Schultz MD Primary Care Provider Reason for Visit Reason Comments Follow-up Skin Check Encounter Details Date Type Department Care Team Description [facility] [place] FONSECA MD History of melanoma; [address] [facility] Neoplasm of uncertain behavi or of skin; [place], [place] Multiple benign nevi; [address] [facility] Weiss angioma; [phone] [address] [place] (actinic keratosis); [place], [place] [address] Seborrheic keratoses; [phone] Lentigines; (Work) History of melanoma in situ; Dermatofi broma; Hydrocystoma Social History Tobacco Use Types Packs/Day Years Used Date Former Smoker Smokeless Tobacco: Never Used Alcohol Use Standard Drinks/Week Comments Yes 7 (1 standard drink = 0.6 oz pure alcoho l) Sex Assigned at Date Recorded Female 10/02/2020 6:58 PM EDT documented as of this encounter Progress Notes Lashell Muniz LPN - 11/05/2019 8:30 AM EDT Images from the original note were not included. DERMATOLOGY ESTABLISHED PATIENT CLINIC NOTE Date of service: 11/05/2019 Leeanne Bush : 1945 Provider: Cm Kaminski MD PROBLEM: FSE SKIN HISTORY: Knee replacement - October 2017 ?? Okay to leave detailed [...] back. ? August 2007, MIS treated in [place] ? Right lateral thigh. 6. 10/2006 Right lower back, mild to moderate DN , Excised 7. She grew up in [place] with a history of extensive sun exposure. [...] Right lateral calf, SCCis (ED&C, 04/24/2018) ?? HPI Leeanne Bush is a 74 y.o.female. Established pt here for a full melanoma skin screening. She has a couple areas on the cheeks. She has had them for the past 5+ years. She has areas on the eye lids and they have been present for about 5 years. No significant health issues since last skin exam. Pt last seen on 09/25/2018 Preferred pharmacy: [address] Procedure Screening Questions: Allergy to lidocaine or [...] up to nightly. 45 g PRN ??? clonazePAM (KLONOPIN) 1 [...] Take 40 mg by mouth nightly. ??? levothyroxine (SYNTHROID) 150 mcg tablet Take 75 mcg by mouth daily. ??? zolpidem (AMBIEN) 10 mg tablet Take 5 mg by mouth nightly. ??? amoxicillin-clavulanate (AUGMENTIN) 875-125 mg Tablet Take [...] Reported on 11/05/2019) 30 g 1 ??? Estradiol 0.1 mg/[address] 1 patch onto the skin once a week. No current facility-administered medications for this visit. PROBLEM LIST: Patient Active Problem List Diagnosis Code ??? Basal cell carcinoma C44.91 ??? Personal history of malignant melanoma of skin Z85.820 ??? Melanoma C43.9 ??? Health care maintenance Z00.00 ??? Abdominal pain R10.9 ROS General: feeling well. Oriented X 3. Skin: denies other skin complaints EXAM General: NAD, pleasant, cooperative Skin: Patient was asked to disrobe to the level of their comfort. A total body skin exam except for the genitalia was performed. This includes examination of the skin of the face, ears, neck, chest, axillae, left and right upper and lower extremities, hands, feet, abdomen, back, and buttocks. The genitalia, perineum, and perianal areas were not examined. Significant skin findings: A. Right infraorbital cheek: 5 mm irregularly pigmented macule. Close to where she had a melanoma in the past B. Right dorsal hand x 1: 0.2-0.3 cm scaly/hyperkeratotic irregular pink papule(s). [Total: 1] C. Trunk and extremities: Scattered 0.4-0.6 cm pink-brown papules/plaques with waxy stuck-on appearance. D. Sun-exposed areas of the trunk and extremities: Scattered 0.3-0.6 cm light- brown, evenly pigmented, well-demarcated macules. E. Trunk: Multiple 0.2-0.4 cm bright red, well-demarcated papules. F. Trunk and extremities: Multiple 0.3-0.5 cm medium-brown, evenly-pigmented macules and papules. All with regular pigment pattern on dermoscopy. No pigmented lesions suspicious for melanoma. G. Occasional tag and small SK on the upper eyelids Pt gives a history of small bumps that drain clear fluid when abraded suggestive of hidrocystoma, but none noted today She will call if these arise. H. Well-healed surgical scar(s) as per skin history.S/P Many skin cancers No adenopathy noted no new lesions suspicious for BCC or SCC ASSESSMENT/PLAN: Pigmented lesion - Neoplasm of Uncertain Behavior, Right infraorbital cheek Ddx: lentigo vs sk vs ak r/o atypia - Recommended a skin biopsy to confirm/clarify the nature of the skin lesion. After discussion of potential risks (scarring, bleeding, infection) and recurrence, patient agreed to proceed. - Patient denies known allergies to lidocaine and epinephrine. Procedure: Skin shave biopsy. Location: 1 Time of procedure: 9:05 AM Discussed indications for procedure and expectations including risks and benefits. Verbal consent obtained. Skin prepped with alcohol. Local anesthesia with 1% xylocaine, 1/100,000 epinephrine. A sample of the lesion was removed by shave technique to the level of the dermis and submitted to Pathology.Hemostasis obtained (AlCl and/or electrocautery). There were no complications; patient tolerated theprocedure well. Wound dressed. Post-procedure expectations, wound care and activity restrictions reviewed. - Follow-up based on pathology results. Images Photo taken and charted with patient consent Actinic Keratoses, Right dorsal hand - Explained etiology, natural history and premalignent potential of these lesions. - Discussed treatment with cryotherapy, including the risks and benefits. - Patient elects to proceed with cryotherapy today. Procedure: Destruction of lesion(s) with cryotherapy (LN2). Location(s): As noted above. Number: 1 Discussed procedure and expectations, including risks (especially hypopigmentation) and benefits. Verbal consent obtained. Frozen with LN2, 15-30 second thaw time, twice. There were no complications; patient tolerated the procedure well. Post-procedure expectations and wound care reviewed. - Instructed patient to return to clinic for re-evaluation if lesion(s) does not resolve with this treatment as expected. Seborrheic Keratoses, trunk and extremities Monitor for change or symptoms - Explained that these are hereditary and adult-acquired. Reassured patient of benign nature. No treatment necessary. - Discussed cosmetic removal with cryotherapy. Patient quoted $100 for removal of 1-10, and $200 forremoval of 11-20. - Advised patient to call if they become inflamed or irritated. Lentigines, sun exposed areas - Discussed benign nature of lesions and provided reassurance. No treatment necessary at this time. - Discussed nature of sun-induced photo-aging and skin cancers. Advised sun avoidance, protective clothing, and use of SPF 30+ broad-spectrum sunscreens. - Instructed patient to observe closely for skin damage/changes and call if such occur. Weiss Angiomas, trunk - Discussed benign nature of lesions and provided reassurance. No treatment necessary at this time. Benign-Appearing Nevi, trunk and extremities - No atypical lesions or features worrisome for malignancy. - Advised patient to watch for anything new or changing. Discussed changes (bleeding, pain, change in color or shape) that should prompt re-evaluation. - Will continue to monitor. Tags and small SK ?occasional hidrocystoma (not noted today)- eyelids Monitor for change or symptoms -Discussed benign nature of lesion and provided reassurance. -No treatment necessary at this time. -Observe skin for change in color, size or character. Call if such occur. H/O Melanoma, MIS, BCC, SCC and DF - NER; will continue to monitor. - See above history RTC - Based on pathology results. RTC in 3-4 months for a full skin exam; sooner if needed. Instructed patient to call with questions or concerns. I am documenting this encounter acting as the scribe for and in the presence of Dr. Kaminski.: LASHELL MUNIZ LPN and I, performed the above scribed service and agree with the accuracy of the documentation in this encounter. Cm Kaminski MD Section of Dermatology [facility] documented in this encounter Plan of Treatment Upcoming Encounters Date Type Specialty Care Team Description 03/14/2022 Office Visit Dermatology [place] Edgar MD [facility] [address] DIANA CANAS-DER[address] [place], [place] [address] (Wo rk) documented as of this encounter Procedures Procedure Name Priority Date/Time Associated Diagnosis Comme nts SPECIMEN TO Routine 11/05/2019 9:20 AM Neoplasm of Results f or this PATHOLOGY EDT uncertain behavior procedure are in of skin the results section. SURGICAL PATHOLOGY Routine 11/05/2019 9:05 AM Res ults for this REPORT EDT procedure are i n the results section. documented in this encounter Results Specimen to Pathology (11/05/2019 9:20 AM EDT) Specimen Anatomical Collection Method Collection Time Receive d Time (Source) Location / / Volume Laterality AP Specimen 11/05/2019 9:20 AM 0 2:53 EDT PM EDT Narrative [facility] - 11/05/2019 2:53 PM EDT Specimen requisition ordered. ??Separate Pathology report to follow Resulting Agency Comment Spec In Lab Cm Kaminski III, MD PATHOLOGY/CYTOLOGY ORDERABLE S Performing Organization Address City/State/[place] [address] Surgical Pathology Report (11/05/2019 9:05 AM EDT) Component Value Ref Test Analysis Performed At [facility] gist Range Method Time Signature Surgical [id number] ? Location: [facility] Report The signing pathologist has (i) examined the relevant preparation(s) for the [facility] specimen(s) and (ii) rendered or confirmed the diagnosis(es) . HOSPITAL LABORATORY . ?Surgic al Pathology DIAGNOSIS Right infraorbital cheek, skin shave biopsy: - Pigmented ??actinic keratosis Electronically signed by: ??Eron Vargas MD Verified: ??11/12/2019 ?Dermatopathologist Performed at: ??-[facility] Dept. of Pathology, [place], [place] ADDITIONAL STUDIES Interpretation of multiple s tep leveled slide sections confirms the diagnosis above. SPECIMEN(S) SUBMITTED A - Right infraorbital cheek, skin shave biopsy (1) CLINICAL INFORMATION 5 mm irregularly pigmented macule; SK vs AK R/O atypia SPECIMEN PROCESSING A - Labeled/Fixative: Patient demographics, formalin. Quantity/Size: ??Single, 0.5 x 0.4 x 0.1 cm. Tissue Description: Shave of mottled callahan-brown skin. Sections/Processing: Inked, bisected and entirely submitted in 1 cassette labeled A1. ??noe Specimen (Source) Anatomical Collection Method Collection Time Re ceived Time Location / / Volume Laterality 11/05/2019 9:05 AM EDT Cm Kaminski III, MD PATHOLOGY/CYTOLOGY ORDERABLE S Performing Organization Address City/State/[place] [address] documented in this encounter Visit Diagnoses Diagnosis History of basal cell carcinoma Personal history of other malignant neop lasm of skin History of melanoma Personal history of malignant melanoma o f skin Neoplasm of uncertain behavior of skin Multiple benign nevi Benign neoplasm of skin, site unspecifie d Weiss angioma Nevus, non-neoplastic AK (actinic keratosis) Actinic keratosis Seborrheic keratoses Lentigines Other dyschromia History of melanoma in situ Personal history of malignant melanoma o f skin Dermatofibroma Benign neoplasm of skin, site unspecifie d Hydrocystoma Benign neoplasm of skin, site unspecifie d documented in this encounter Care Teams Pilot Captain Relationship Specialty Start Date End Date Leeanne Schultz MD PCP - General 10/28/13 [address] [place] [address] documented as of this encounter
--- OUTSIDE RECORDS SUMMARY | 2021-11-23 01:52 | XMS_ITS | Encounter Summary ---
:1945 Author Organization [place] [address] Care Team Providers Name Role Phone Leeanne Schultz MD Primary Care Provider Encounter Details Date Type Department Care Team Description 10/03/2018 Telephone Dermatology at [facility] Cm Kaminski III, [address] [address] [facility] [phone] [address]IA[address] MEDINA-DERMAT [place], [place] [address] (Wo rk) Social History Tobacco Use Types Packs/Day Years Used Date Former Smoker Smokeless Tobacco: Never Used Alcohol Use Standard Drinks/Week Comments Yes 7 (1 standard drink = 0.6 oz pure alcoho l) Sex Assigned at Date Recorded Female 10/02/2020 6:58 PM EDT documented as of this encounter Miscellaneous Notes Telephone Encounter - Cm Kaminski III, MD - 10/03/2018 5:23 PM EDT I called the patient and discussed her tretinoin prescription. She will see Dr Burleson in about 2 weeks - I advised she wait to see what type of topical retinoid Dr Burleson advises rather than fill this prescription and then get another one in weeks. She is fine with that approach and will wait and ask Dr Burleson what topical retinoid she recommends - The tretinoin prescription was cancelled. Cm Kaminski MD Section of Dermatology [facility] documented in this encounter Plan of Treatment Upcoming Encounters Date Type Specialty Care Team Description 03/14/2022 Office Visit Dermatology [place] Edgar MD [facility] [address] DIA[address] MEDINA-DERMAT [place], [place] [address] (Wo rk) documented as of this encounter Visit Diagnoses Not on filedocumented in this encounter Care Teams Restorative Aide Relationship Specialty Start Date End Date Leeanne Schultz MD PCP - General 10/28/13 [address] [place] [address] documented as of this encounter
--- OUTSIDE RECORDS SUMMARY | 2021-11-23 01:52 | XMS_ITS | Encounter Summary ---
:1945 Author Organization [facility] [place] [address] Care Team Providers Name Role Phone Leeanne Schultz MD Primary Care Provider Encounter Details Date Type Department Care Team Description 03/16/2021 Notes Only Hematology and Oncology at Bryan Luna MD [facility] Kwasi fernández HEMATOLOGY/[place] [address] [place] [address] [phone] (Wo rk) Social History Tobacco Use Types Packs/Day Years Used Date Former Smoker Smokeless Tobacco: Never Used Alcohol Use Standard Drinks/Week Comments Yes 7 (1 standard drink = 0.6 oz pure alcoho l) Sex Assigned at Date Recorded Female 10/02/2020 6:58 PM EDT documented as of this encounter Progress Notes Bryan Shaffer MD - 03/16/2021 5:49 PM EST I have reviewed the patient's record and given personal and/or family history of cancer she should be seen by genetic counselor. This is scheduled for next week. documented in this encounter Plan of Treatment Upcoming Encounters Date Type Specialty Care Team Description 03/14/2022 Office Visit Dermatology [place] Edgar MD [facility] [address] [place], [place] [address] (Wo rk) documented as of this encounter Visit Diagnoses Not on filedocumented in this encounter Care Teams Windows Security Engineer Relationship Specialty Start Date End Date Leeanne Schultz MD PCP - General 10/28/13 [address] [place] [address] documented as of this encounter
--- OUTSIDE RECORDS SUMMARY | 2021-11-23 01:52 | XMS_ITS | Encounter Summary ---
:1945 Author Organization [facility] [place] [address] Care Team Providers Name Role Phone Leeanne Schultz MD Primary Care Provider Encounter Details Date Type Department Care Team Description 12/16/2020 Surgery Gastroenterology at [facility] Driss Gilbert, UPPER EUS- ENDOSCOPIC [facility] Kwasi fernández [place] [address] [facility] [phone] [place], [place] [address] Social History Tobacco Use Types [...] in this encounter Discharge Instructions Discharge InstructionsEdmar Melgoza, RN - 12/16/2020 2:42 PM EDT Upper [...] the day after the procedure, use an ospb-khs-ujmmyzp spray to numb yourthroat. Sucking on throat [...] occurs, please contact your Doctor. Please call [phone] before 8pm Mon-Fri with problems, questions or concerns. If you call after 8pm or on weekends, call the Hospital at [phone] and ask to speak to the [employer] Repairer television service engineer and the lollypop machine operator will contact that person for you. When should you call for help? Call [phone] anytime you think you may need emergency [...] any problems. Where can you learn more? [facility] View your After Visit Summary and more online at [email or web address] If you would like to provide feedback about your hospital experience, please call the Office of Patient and Family Relations at . If you have received this After Visit Summary in error, please immediately return it in person to the department, or notify the [facility] Privacy Office by calling toll free at between the hours of 8AM and 5PM to arrange for our retrieval of the documents at no cost to you. Content Version: 12.2 ?? 8703-4729 [employer]. Care instructions adapted under license by [facility]. If you have questions about a medical condition or this instruction, always ask your healthcare professional. [employer] disclaims any warranty or liability for your [...] the day after the procedure, use an vasw-udk-gxbojdu spray to numb yourthroat. Sucking on throat [...] occurs, please contact your Doctor. Please call [phone] before 8pm Mon-Fri with problems, questions or concerns. If you call after 8pm or on weekends, call the Hospital at [phone] and ask to speak to the [employer] Repairer television service engineer and the lollypop machine operator will contact that person for you. When should you call for help? Call [phone] anytime you think you may need emergency [...] any problems. Where can you learn more? [facility] View your After Visit Summary and more online at [email or web address] If you would like to provide feedback [...] cost to you. Content Version: 12.2 ?? 8376-1400 [employer]. Care instructions adapted under license by [facility]. If you have questions about a medical condition or this instruction, always ask your healthcare professional. [employer] disclaims any warranty or liability for your [...] this encounter Miscellaneous Notes Op Note - Driss Gilbert MD - 12/16/2020 2:15 PM EDT DH Operative Note Patient Name: Leeanne Bush : [id number] MR#: [id number] Case Date: 12/16/2020 Surgeon: Surgeon(s) and Role: * Driss Gilbert MD - Primary * Porfirio Fountain MD - Fellow Procedure(s): UPPER EUS- ENDOSCOPIC ULTRASOUND EGD, UPPER GI ENDOSCOPY Please see Provation report for details. documented in this encounter Plan of Treatment Upcoming Encounters Date Type Specialty Care Team Description 03/14/2022 Office Visit Dermatology [place] Edgar MD [facility] [address] [place], [place] [address] (Wo rk) documented as of [...] Component Value Ref Test Analysis Performed At [facility] gist Range Method Time Signature UPPER [facility] PROVATION ENDOSCOPIC Endoscopy ULTRASOUND _ Procedure Date: 12/16/2020 1:53 PM ? Patient Name: Leeanne Bush ? N: [id number] ? Date of : 1945 ? Age: 75 ? Order #: [id number] ? Instrument Name: [id number] ? Procedure: ? Upper EUS Indications: ? 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 ? Extrinsic compression Providers: ? Porfirio Jay, ? Barber Flores RN Referring MD: ?Leeanne [...] Procedure Code(s): ?? --- Professional --- ? 26704, Esophagogastroduodenos copy, ? flexible, transoral; with end oscopic ? ultrasound examination limite d to the ? esophagus, stomach or duodenu m, and ? adjacent structures Diagnosis Code(s): ?? --- Professional --- ? 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 --- Technical --- ? 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 All rights reserved. The codes documented in this report are preliminary and upon patient scheduling manager review may be revised to meet current [...] Procedure) documented in this encounter Care Teams Bariatric Physician Relationship Specialty Start Date End Date Leeanne Schultz MD PCP - General 10/28/13 [address] [place] [address] documented as of this encounter
--- OUTSIDE RECORDS SUMMARY | 2021-11-23 01:53 | XMS_ITS | Encounter Summary ---
:1945 Author Organization [facility] [place] [address] Care Team Providers Name Role Phone Leeanne Schultz MD Primary Care Provider Reason for Visit Reason Comments Rectal Bleeding Auth/Cert Specialty Diagnoses / Procedures Referred By Contact Refer red To Contact Diagnoses Abdominal pain Referral ID Status Reason Start Date Expiration Date Visits Requ ested Visits Authorized [id number] 1 1 Encounter Details Date Type Department Care Team Description 01/10/2018 - Hospital Encounter 2 Sarah Raines MD [facility] [place] [address] Abdominal [facility], [facility] [place] [address] unspecified [place] [id number] Social History Tobacco Use Types Packs/Day Years Used Date Former Smoker Smokeless Tobacco: Never Used Alcohol Use Standard Drinks/Week Comments Yes 7 (1 standard drink = 0.6 oz pure alcoho l) Sex Assigned at Date Recorded Female 10/02/2020 6:58 PM EDT documented as of this encounter Last Filed Vital Signs Vital Sign Reading Time Taken Comments Blood Pressure 133/80 01/13/2018 11:25 AM EDT Pulse 70 01/13/2018 11:25 AM EDT Temperature 37 ??C (98.6 ??F) 01/13/2018 11:25 AM EDT Respiratory Rate 16 01/13/2018 11:25 AM EDT Oxygen Saturation 96% 01/13/2018 11:25 AM EDT Inhaled Oxygen Concentration - - Weight 70.3 kg (155 lb) 01/11/2018 5:00 AM EDT Height 170.2 cm (5' 7) 01/11/2018 5:00 AM EDT Body Mass Index 24.28 01/11/2018 5:00 AM EDT documented in this encounter Discharge Summaries Tosin Lee PA - 01/13/2018 8:52 AM EDT General Surgery Discharge Summary Patient Name: Leeanne Bush Patient Age: 72 y.o. Birthdate: 1945 Admit date: 01/10/2018 Discharge date and time: 01/13/2018 Attending Physician: Billy Howard MD Primary Diagnosis: Large bowel perforation of the right colon Secondary Diagnosis: Asthma; HTN; Hypothyroid; Acute Blood Loss Anemia, Operations and Procedures: None Surgeons: * Surgery not found * History of Present Illness: Leeanne Bush was seen on 01/10/18 at the request of Sylvia Islas MD for evaluation and advice about pneumoperitoneum. This is a 72 y.o. female with PMH HTN who is s/p colonoscopy at [facility] on 01/09/18. Following the colonoscopy, she presented to [facility] with BRBPR and abdominal pain. She stated she had not felt well since the colonoscopy. She had one episode of passing multiple quarter-sized clots per rectum the morning of 01/10/18. She had progressive abdominal pain during the day and decreased appetite which prompted her to go to [facility] ED. On arrival she was hemodynamically normal and labs were within normal limits. She underwent CT scan which showed pneumoperitoneum. She then elected to leave the ED AMA to come to [facility] for further care. On arrival to [facility] she was hemodynamically normal. Hospital Course: Leeanne Bush is a 72 y.o. female who was admitted on 01/10/2018 for evaluation andtreatment of a large bowel perforation of the right colon following colonoscopy on 01/09/18. She was managed conservatively with serial abdominal exams, IVF, IV antibiotics and she remained NPO. On HD# 2sadelso was restarted on a regular diet, and she tolerated that without any problems. Her pain was managed with Tylenol. She was voiding without difficulty. She did have a bowel movement prior to dischargeand was passing flatus and taking PO without difficulty. Prior to discharge on HD# 3 Leeanne Araujos afebrile, with stable vital signs. On HD# 3, she was discharged to home in stable condition. Vital Signs: Last value Range last 24hrs Temperature Temp: 37 ??C (98.6 ??F) Temp: [36.9 ??C (98.4 ??F)-37.1 ??C (98.8 ??F)] Heart Rate Heart Rate: 70 Heart Rate: [70-88] Blood Pressure BP: 133/80 BP: (107-145)/(60-80) Respiratory Rate Resp: 16 Resp: [16-20] SpO2 SpO2: 96 % SpO2: [96 %-99 %] Pertinent Lab Data: Recent Labs 01/13/18 01201/12/18 0410 01/11/18 2206 01/11/18 1254 01/11/18 0501/10/18 2347 WBC 7.4 5.1 6.2 6.7 5.6 7.2 HGB 9.4* 8.9* 9.2* 9.3* 8.9* 9.0* HCT 29.6* 28.2* 28.4* 28.5* 27.6* 28.4* PLATELET 353 289 293 282 276 289 PT -- -- -- -- -- 11.8 INR -- -- -- -- -- 1.1 PTT -- -- -- -- -- 28 Recent Labs 01/13/18 01201/12/180 01/11/18 0517 01/10/18 2347 NA 138 139 140 142 K 4.1 4.3 3.9 4.0 CL 102 104 105 104 CO2 23 18* 22 25 BUN 14 11 15 17 CREATININE 0.80 0.53* 0.59* 0.67* GLUCOSE 109 57* 69 82 CALCIUM 8.6 8.2* 7.5* 8.0* MAGNESIUM 0.85 0.76 -- -- PHOS 3.2 3.1 -- -- Physical Exam: General: NAD, resting comfortably, pleasant, conversant HEENT: PERRL, anicteric sclerae CVS: RRR Pulm: CTAB Abd: soft, non- tender, non-distended : no problems with voiding Skin: warm, dry Ext: no c/c/e Neuro: CN 2-12 grossly intact, nonfocal,moving all four extremities spontaneously Imaging: Request For 2nd Read Ct Abdomen & Pelvis Result Date: 01/11/2018 EXAMINATION: REQUEST FOR 2ND READ CT ABDOMEN AND PELVIS CLINICAL HISTORY: ?free peritoneal air; WhatModality is the exam? CT Scan; Body Part (please add comments as necessary): abdomen/pelvis; I believe a reinterpretation of this exam may alter care of Patient. Yes TECHNIQUE: Reinterpretation requestfor outside CT abdomen/pelvis with intravenous contrast. Absence of enteric contrast renders suboptimal assessment of bowel lumen and surrounding soft tissue structures/viscera. COMPARISON: None FINDINGS: Included Lower Chest: Unremarkable. Liver: Unremarkable. Gallbladder: Unremarkable. Spleen: Unrema rkable. Pancreas: Unremarkable. Adrenal Glands: Unremarkable. Kidneys: Horseshoe kidney with scattered hypodensities too small to characterize, although a small partially exophytic focus at the LEFT moiety appears to be partially enhancing. Punctate nonobstructive calculus at the RIGHT moiety inferiorly. Urinary bladder: Unremarkable. GI/Mesentery/Peritoneum: Trace pneumoperitoneum anterior to the liver. There is free air scattered throughout the right lower quadrant, which appears to arise from thececum. There is streaky hyperattenuation within the cecum, suggestive of active bleeding. There is inflammatory fat stranding surrounding the cecum and adjacent mesentery. There is no fluid organization to suggest phlegmon or abscess. Ascending and transverse colon are dilated measuring up to 4.6 cm with air-fluid levels suggestive of ileus, with a gradual transition to normal caliber abdomen and distal transverse colon. Lymphatic System: No lymphadenopathy identified. Vasculature: Nonaneurysmal abdominal aorta. Osseous Structures: No acute abnormality identified. 1. Large bowel perforation of the right colon. The site of injury appears to be the cecum where there is streaky high attenuation material consistent with acute hemorrhage and active bleeding. 2. Pneumoperitoneum. 3. No abscess or phlegmon identified. 4. Horseshoe kidney, with indeterminate partially enhancing small lesion within the LEFT moiety; recommend further evaluation with sonogram or MRI if there are no contraindications (unexpected finding). Preliminary report signed by: Lee Bruner at 01/11/2018 1:07 AM I have personally reviewed the image(s) and the residents interpretation and agree withthe findings, Sg Jamison at 01/11/2018 6:06 AM Film Library- Storage Only Ct Abdomen & Pelvis Result Date: 01/11/2018 This exam is for storage only and is auto-finalizing. Film Library- Storage Only Dx Abdomen Result Date: 01/11/2018 This exam is for storage only and is auto-finalizing. Film Library- Storage Only Dx Abdomen Result Date: 01/11/2018 This exam is for storage only and is auto-finalizing. Film Library- Storage Only Dx Chest Result Date: 01/11/2018 This exam is for storage only and is auto-finalizing. Xr Chest Pa Or Ap 1 View Result Date: 01/11/2018 EXAMINATION: XR CHEST PA OR AP 1 VIEW CLINICAL HISTORY: told she had bubbles on her CT after colonoscopy ?free air, upright pls TECHNIQUE: AP chest radiograph COMPARISON: None FINDINGS: Mild streaky basilar subsegmental atelectasis and/or scarring. No confluent airspace opacity or pneumothorax definitively identified. Cardiomediastinal contours within normal limits for age. There is no free air seen under the diaphragm to suggest pneumoperitoneum. Right cardiophrenic angle is not included in the study. The left cardiophrenic angle is sharp. Healed posterior right fifth rib fracture. No radiographic evidence of pneumoperitoneum identified. Preliminary report signed by: Lee Bruner at 01/10/2018 11:49 PM I have personally reviewed the image(s) and the residents interpretation and agree with the findings, Sg Jamison at 01/11/2018 12:12 AM Condition at discharge: Stable Mental Status: awake and alert, oriented x 3 Medications: Your Medications New Medications Dose Details amoxicillin-clavulanate 875-125 mg Tab Commonly known as: AUGMENTIN Take 1 tablet by mouth 2 times daily. 1 tablet Quantity: 20 tablet Refills: 0 Continued medications, unchanged Dose Details Albuterol (Refill) 90 mcg/actuation Aero Inhale 2 puffs into the lungs every 4 hours as needed. 2 puff Refills: 0 AMBIEN 10 mg Tab Take 5 mg by mouth nightly. Generic drug: zolpidem 5 mg Refills: 0 amLODIPine 10 mg Tab Commonly known as: NORVASC Take 10 mg by mouth daily. 10 mg Refills: 0 buPROPion 150 mg Tb12 Commonly known as: WELLBUTRIN SR or ZYBAN Take 150 mg by mouth daily. 150 mg Refills: 0 celeXA 40 mg Tab Take 40 mg by mouth nightly. Generic drug: citalopram 40 mg Refills: 0 clonazePAM 1 mg Tab Commonly known as: KlonoPIN Refills: 0 Estradiol 0.1 mg/[address] 1 patch onto the skin once a week. 1 patch Refills: 0 levothyroxine 150 mcg Tab Commonly known as: SYNTHROID Take 75 mcg by mouth daily. 75 mcg Refills: 0 minocycline 50 mg Cap Commonly known as: MINOCIN;DYNACIN Take 50 mg by mouth 2 times daily. 50 mg Refills: 0 pimecrolimus 1 % Crea Commonly known as: ELIDEL Apply topically 2 times daily. As need for redness / rash on face Quantity: 30 g Refills: 1 scopolamine 1 mg over 3 days Pt3d Commonly known as: TRANSDERM-SCOP Place 1 patch onto the skin every 3 days. 1 patch Quantity: 6 patch Refills: 0 tretinoin 0.025 % Crea Commonly known as: RETIN-A Apply topically to affected areas on the face at night. Quantity: 45 g Refills: PRN STOPPED Medications ciprofloxacin 500 mg Tab Commonly known as: CIPRO Disposition: Home Allergies: Allergies Allergen Reactions ??? Shellfish Derived Hives and Other (See Comments) Tongue swelling too ??? Nitrofurantoin Monohyd/M-Cryst Nausea And Vomiting Outpatient Services/Studies: No discharge procedures on file. Instructions Given to Patient at Discharge: Minimally Invasive Surgery Discharge Instructions If you have any questions or concerns, please call [phone] before 5pm Saturday through Saturday; [phone] after 5pm and on weekends. Diet: You have no restrictions in your diet. Activity: You have no restrictions to your activity. Driving: Do not drive while taking narcotic pain medications. If you are no longer taking pain medication, it should safe to drive when it no longer hurts gettingin and out of the vehicle, and when you can quickly move your leg from the gas to the brake pedal without it causing pain. Pain Medications: Take only as needed. (Patient did not receive a prescription for pain medication) -Take the medication exactly as it is prescribed and make sure to read all instructions that come with the medication. -Over the next couple of days you should be requiring less of this medication to control you pain, so that eventually you will not need any at all. You do not have to take all of the medication that was prescribed, you may have some left over. -Use ibuprofen (motrin, advil) and/or tylenol prior to using this medication. If your pain is still not controlled, you may then use this medication. -Taking more than the prescribed amount of medication or using with alcohol or other drugs can causeyou to stop breathing resulting in coma, brain damage or . -Opioids can slow reaction time, cause drowsiness or cloud judgement. No driving for 8 hours after any dose of opioid pain medication if one was prescribed for you. -Using this drug may cause addiction. While addiction is more common in people with a personal or family history of addiction, it can occur in anyone. -Opioids are at risk of being diverted by anyone with access to your home. Opioids should be stored in a safe and secure place, such as a locked cabinet or safe. -Unused opioids should be disposed of appropriately. They may be returned to a take-back location, or mixed with a small amount of water and poured over an undesirable waste such as used coffee groundsor cat litter. -Please note that most pain medications can cause constipation. You may use a stool softener such asMiralax to prevent this. Other Means for Pain Relief: Other than medications. ?? Learn deep breathing exercises or meditation to help you relax ?? Reduce stress ?? Your body produces natural endorphins from exercise which can help reduce pain. Even walking is considered exercise. Talk with your provider/surgical team about what exercises are appropriate for you to perform. ?? You may use a heating pad or apply ice to the painful area unless specifically discouraged by thesurgical team. ?? Find ways to distract yourself from the pain. Other Medication Changes: There have not been any changes made to your home medications. Resume taking them as you had prior to this hospitalization. You have been given a prescription for the antibiotic Augmentin. Please take this medication twice daily for the next 10 days. You should take all of the medication as prescribed, you should not have any of the medication remaining once the course is complete. Call your Dr: Please call if you notice worsening redness or drainage from incision(s) lasting longer than 5 days after your surgery, any foul-smelling drainage from the incision, pain not controlled by pain medications, persistent nausea and vomiting, or for any fevers greater than 101.3 F. Showering: You have no restrictions to showering or bathing. Follow-up: You have a follow-up appointment with your regular Primary Care Provider in the next couple of days. Signed: FALGUNI Crespo 01/13/2018 Primary Care Physician: Leeanne Schultz MD [address] / [facility] [id number] documented in this encounter Discharge Instructions Discharge InstructionsWeTosin medrano PA - 01/13/2018 11:03 AM EDT Instructions Given to Patient at Discharge: ?? Minimally Invasive Surgery Discharge Instructions ?? If you have any questions or concerns, please call [phone] before 5pm Saturday through Saturday; [phone] after 5pm and on weekends. ?? Diet: You have no restrictions in your diet. ?? Activity: You have no restrictions to your activity. ?? Driving: Do not drive while taking narcotic pain medications. If you are no longer taking pain medication, it should safe to drive when it no longer hurts gettingin and out of the vehicle, and when you can quickly move your leg from the gas to the brake pedal without it causing pain. ?? Pain Medications: Take only as needed. (Patient did not receive a prescription for pain medication) -Take the medication exactly as it is prescribed and make sure to read all instructions that come with the medication. -Over the next couple of days you should be requiring less of this medication to control you pain, so that eventually you will not need any at all. You do not have to take all of the medication that was prescribed, you may have some left over. -Use ibuprofen (motrin, advil) and/or tylenol prior to using this medication. If your pain is still not controlled, you may then use this medication. -Taking more than the prescribed amount of medication or using with alcohol or other drugs can causeyou to stop breathing resulting in coma, brain damage or . -Opioids can slow reaction time, cause drowsiness or cloud judgement. No driving for 8 hours after any dose of opioid pain medication if one was prescribed for you. -Using this drug may cause addiction. While addiction is more common in people with a personal or family history of addiction, it can occur in anyone. -Opioids are at risk of being diverted by anyone with access to your home. Opioids should be stored in a safe and secure place, such as a locked cabinet or safe. -Unused opioids should be disposed of appropriately. They may be returned to a take-back location, or mixed with a small amount of water and poured over an undesirable waste such as used coffee groundsor cat litter. -Please note that most pain medications can cause constipation. You may use a stool softener such asMiralax to prevent this. ?? Other Means for Pain Relief: Other than medications. ?? Learn deep breathing exercises or meditation to help you relax ?? Reduce stress ?? Your body produces natural endorphins from exercise which can help reduce pain. Even walking is considered exercise. Talk with your provider/surgical team about what exercises are appropriate for you to perform. ?? You may use a heating pad or apply ice to the painful area unless specifically discouraged by thesurgical team. ?? Find ways to distract yourself from the pain. ? Other Medication Changes: There have not been any changes made to your home medications. Resume taking them as you had prior to this hospitalization. You have been given a prescription for the antibiotic Augmentin. Please take this medication twice daily for the next 10 days. You should take all of the medication as prescribed, you should not have any of the medication remaining once the course is complete. ?? Call your Dr: Please call if you notice worsening redness or drainage from incision(s) lasting longer than 5 days after your surgery, any foul-smelling drainage from the incision, pain not controlled by pain medications, persistent nausea and vomiting, or for any fevers greater than 101.3 F. ? Showering: You have no restrictions to showering or bathing. ?? Follow-up: You have a follow-up appointment with your regular Primary Care Provider in the next couple of days. ?? documented in this encounter Medications at Time of Discharge Medication Sig Dispensed Refills Start Date End Date amoxicillin-clavulanate Take 1 tablet by 20 tablet 0 2017 (AUGMENTIN) 875-125 mg mouth 2 times daily. Tablet scopolamine Place 1 patch onto 6 patch 0 12/19/2015 (TRANSDERM-SCOP) 1.5 mg the skin every 3 (1 mg over 3 days) patch days. 3 dayIndications: Counseling about travel, H/O motion sickness pimecrolimus (ELIDEL) 1 % Apply topically 2 30 g 1 05/2015 Cream times daily. As need for redness / rash on face clonazePAM (KLONOPIN) 1 0 08/07/2013 mg tablet amlodipine (NORVASC) 10 Take 10 mg by mouth 0 mg tablet daily. buPROPion (WELLBUTRIN SR) Take 150 [...] mg by mouth 0 09/03 tablet nightly. minocycline Take 50 mg by mouth 0 12/04 (MINOCIN;DYNACIN) 50 mg 2 times daily. Capsule tretinoin (RETIN-A) 0.025 Apply topically to 45 g 0 12 / 11/21/2018 % CreamIndications: Skin affected areas on lesion the face at night. Estradiol 0.1 mg/[address] 1 patch onto 0 12/16/2020 PTWK the skin once a week. documented as of this encounter Progress Notes Albert Perea - 01/13/2018 12:59 PM EDT Naturopath Encounter Note Narrative: Responded to consult request, Ms. Carvalho awake, alert, sitting up in bed with her seated beisde Assessment: A bright minded, capable and supportive couple, dealing with unanticipated consequence of a colonoscopy, requiring convalescence. Intervention and Outcome: Presence, conversation and reflection appreciated. Follow-up: No Time in Direct Care: 20 mins. Violet Aguilar 01/11/2018 Rhina George RN - 01/13/2018 12:52 PM EDT Patient Name: Leeanne Bush Patient Age: 72 y.o. Birthdate: 1945 Admit date: 01/10/2018 Attending Physician: Billy Howard MD Pertinent patient education completed. Prescriptions and medication reconciliaton completed prior todeparture. AVS reviewed with pt with all questions answered and no further needs at this time. Discharged to home with no services. Billy Howard MD - 01/12/2018 11:58 AM EDT General Surgery Inpatient Progress Note ID: Leeanne Bush is a 72 y.o. female with PMH hypothyroid, depression, HTN who presents with pneumoperitoneum after colonoscopy. Procedures this Hospitalization: none 24 Hour Events/Subjective: -hemoglobin stable -no additional bloody bowel movements overnight -no overnight events -pain well controlled -passing flatus, no nausea/vomiting -ambulating around unit without difficulty Vitals: Last value Range last 24 hrs Temperature Temp: 36.9 ??C (98.4 ??F) Temp: [36.7 ??C (98.1 ??F)-36.9 ??C (98.4 ??F)] Heart Rate Heart Rate: 91 Heart Rate: [86-98] Blood Pressure BP: 138/68 BP: (115-158)/(57-85) Respiratory Rate Resp: 17 Resp: [8-20] SpO2 SpO2: 99 % SpO2: [96 %-100 %] Intake and Output: Last 24 Current Shift 01/10 701 - 01/11 700 In: - Out: 975 [Urine:975] 01/11 1901 - 01/12 700 In: - Out: 425 [Urine:425] Gen: NAD HEENT: NC/AT, sclera anicteric, PERRL. EOMI CV: regular Pulm: no respiratory distress Abd: soft, nontender, nodistended. No rebound or guarding Skin: warm, dry. Ext: SCDs in place Neuro: A&Ox3, CN II-XII grossly intact, moving all four extremities spontaneously Labs: Recent Labs 01/11/18 1254 01/11/18 0517 01/10/18 2347 WBC 6.7 5.6 7.2 HGB 9.3* 8.9* 9.0* HCT 28.5* 27.6* 28.4* PLATELET 282 276 289 Recent Labs 01/10/18 2347 PT 11.8 PTT 28 INR 1.1 Recent Labs 01/11/18 0517 01/10/18 2347 NA 140 142 K 3.9 4.0 CL 105 104 CO2 22 25 BUN 15 17 CREATININE 0.59* 0.67* GLUCOSE 69 82 Recent Labs 01/11/18 0517 01/10/18 2347 CALCIUM 7.5* 8.0* Recent Labs 01/10/18 2347 AST 11 ALT 10 ALKPHOS 59 BILITOT 0.4 BILIDIR 0.1 No results for input(s): PHART, QKW4QCI, PO2ART, JEC9LQU, BEART in the last 168 hours. Microbiology: None Imaging/Studies: None Consults: None A/P: Leeanne Bush is a 72 y.o. female with PMH recent colonoscopy who presented with pneumperitoneum and abdominal pain suspicious for focal colon perforation. # NEURO: tylenol prn for pain; home wellbutrin, celexa and ambien # CV: Vitals stable. # PULM: Encourage IS. Home symbicort # FEN/GI: NPO diet (Give Meds); IVF; replete electrolytes PRN; # : UOP adequate # ENDO: Home synthroid. # HEME: Start chemical DVT ppx. Daily CBC # ID: Zosyn for ppx # PPX: IS, SCDs, lovenox # LINES: PIV # DISPO: Floor status, Full Code, Antonina Monroy MD 01/11/2018 MIS Pager [phone] Attending Note I saw the pt with Dr. Monroy. She continues to do well. Will begin clears. Billy Howard Billy Howard MD - 01/12/2018 4:33 AM EDT Patient seen and examined overnight. Reports pain is well controlled, reports mild nausea relieved with PRNs. Reports mild tenderness at epigastrium, non distended, no masses. Resting comfortably. Attending note She continues to be comfortable. Continue current plan. Billy Howard Billy Howard MD - 01/11/2018 12:55 PM EDT Patient seen and examined this afternoon. Reports pain is well controlled, denies nausea/vomiting. Reports mild tenderness at epigastrium, non distended, no masses. Patient reports bloody BMx2 this AM. Attending Note Stable, no significant change in status. Continue current mgmt. Billy Howard Myriam Murcia RN - 01/11/2018 5:31 AM EDT Pt arrived to floor from ED, report received from Molly POTTS. Vital signs stable, pt reporting 3/10 abdominal pain denies need for intervention at this time. Labs drawn, IV fluids started, Pt requesting Maddie PETER notified. See flow sheets for full assessment. Pt oriented to room, no complaints at this time. Will continue to monitor. documented in this encounter H&P Notes Billy Howard MD - 01/12/2018 2:14 PM EDT See note under consultation. documented in this encounter ED Notes Molly Coates RN - 01/11/2018 1:54 AM EDT gastroenterology team at bedside. Dinora Estevez MD - 01/10/2018 10:39 PM EDT ED Resident Note Leeanne Bush is an 72 y.o. female who presents to the ED with: Chief Complaint Patient presents with ??? Rectal Bleeding HPI Leeanne Bush is a 72 y.o. female with a past medical history of asthma, hypothyroidism, HTN, depression, anxiety, melanoma who is s/p colonoscopy yesterday who presents to the Emergency Department with rectal bleeding. She is reporting approximately 6-7 episodes of quarter size clots from her rectum since this morning. She went back to [facility] this afternoon and was [facility] not feel [facility]. She says that her doctor told her that she mayhave clipped her colon when removing a polyp. She is reporting mild 2/10 diffuse abdominal pain. Denies shortness of breath, chest pain, lightheadedness, fever, nausea/vomiting. Review of Systems: Pertinent positives and negatives are included in the history of present illness, otherwise 10 systems are reviewed and negative. Physical Exam: Patient Vitals for the past 96 hrs: BP Temp Temp src Pulse Resp SpO2 Height Weight 01/11/18 0500 - - - - - - 170.2 cm (5' 7) 70.3 kg (155 lb) 01/11/18 0445 158/85 36.7 ??C (98.1 ??F) Oral 94 17 99 % - - 01/11/18 0300 145/57 - - 93 11 96 % - - 01/11/18 0245 140/71 - - 98 15 96 % - - 01/11/18 0230 137/61 - - 93 15 97 % - - 01/11/18 0215 135/58 - - 92 10 96 % - - 01/11/18 0200 143/77 - - 95 19 98 % - - 01/11/18 0145 144/71 - - 94 10 97 % - - 01/11/18 0130 131/62 - - 93 8 98 % - - 01/11/18 0115 148/66 - - 91 14 98 % - - 01/11/18 0100 144/59 - - 91 10 98 % - - 01/11/18 0000 139/75 - - 86 9 99 % - - 01/10/18 2345 147/69 - - 90 13 99 % - - 01/10/18 2330 138/78 - - 89 13 97 % - - 01/10/18 2315 115/62 - - 90 12 - - - 01/10/18 2300 145/60 - - 86 13 - - - 01/10/18 2245 142/79 - - 89 16 - - - 01/10/18 1903 154/82 37 ??C (98.6 ??F) Oral 86 16 100 % - 70.3 kg (155 lb) General: AAOx4, in NAD, non-diaphoretic HEENT: normocephalic/atraumatic, EOMI, PERRL, MMM, no pallor Neck: supple, full range of motion Cardiovascular: RRR Pulmonary: LCTAB Abdomen: soft, nondistended, mild diffuse TTP, guarding, no rebound Skin: no rashes, no bruising : Stool grossly bloody, no external hemorrhoids or anal fissures Neuro: CN II-XII grossly intact, grossly normal strength ED Course: - Patient seen under the supervision of Dr. Sylvia Olvera - Medications, allergies and past medical history reviewed Significant lab results: Recent Results (from the past 24 hour(s)) Basic Metabolic Panel (non-fasting) Result Value Ref Range Glucose Lvl 82 65 - 199 mg/dL BUN 17 8 - 18 mg/dL Creatinine 0.67 (L) 0.70 - 1.20 mg/dL Sodium 142 135 - 145 mmol/L Potassium 4.0 3.5 - 5.0 mmol/L Chloride 104 98 - 107 mmol/L CO2 25 22 - 31 mmol/L Anion Gap 13 5 - 15 mmol/L Calcium 8.0 (L) 8.5 - 10.5 mg/dL eGFR 88 >=60 mL/min/1.73 m?? eGFR 102 >=60 mL/min/1.73 m?? Hepatic Function Panel Result Value Ref Range Total Protein 6.2 6.1 - 8.0 gm/dL Albumin 4.0 3.2 - 5.2 gm/dL AST 11 0 - 30 unit/L ALT 10 0 - 30 unit/L Alk Phos 59 40 - 104 unit/L Total Bilirubin 0.4 0.2 - 1.3 mg/dL Bili, Direct 0.1 0.0 - 0.3 mg/dL Prothrombin Time Result Value Ref Range PT 11.8 9.4 - 12.5 sec INR 1.1 APTT Result Value Ref Range PTT 28 25 - 37 sec Troponin T Result Value Ref Range Troponin-T <0.01 0.00 - 0.00 ng/mL ABO/Rh Typing Result Value Ref Range ABORh Type A Neg Antibody screen Result Value Ref Range Ab Screen Interp Negative Expires at 2359 on: 01/13/2018 Hemogram Result Value Ref Range WBC 7.2 4.0 - 9.5 x10(3)/mcL RBC 2.96 (L) 4.00 - 5.21 x10(6)/mcL Hemoglobin 9.0 (L) 11.7 - 15.5 gm/dL Hematocrit 28.4 (L) 35.7 - 45.8 % MCV 95.9 (H) 82.6 - 94.4 fL MCH 30.4 27.1 - 32.0 pg MCHC 31.7 31.7 - 35.0 gm/dL Platelets 289 145 - 357 x10(3)/mcL RDWSD 48.3 (H) 37.0 - 46.0 fL RDWCV 13.5 11.5 - 14.1 % MPV 9.2 7.6 - 12.9 fL nRBC % Auto 0.0 % nRBC Abs Auto 0.000 0.000 - 0.000 x10(3)/mcL Differential, Automated Result Value Ref Range Neutrophils % 55.6 % Neutr Abs (ANC) 4.02 1.70 - 6.10 x10(3)/mcL Lymphocytes % 33.1 % Lymphocytes Abs 2.4 0.9 - 3.2 x10(3)/mcL Monocytes % 7.7 % Monocyte Abs 0.6 0.3 - 0.9 x10(3)/mcL Eosinophils % 3.2 % Eosinophils Abs 0.2 0.0 - 0.4 x10(3)/mcL Basophils % 0.3 % Basophils Abs 0.0 0.0 - 0.1 x10(3)/mcL Immature Gran % 0.10 % Karla Gran Abs 0.01 0.00 - 0.04 x10(3)/mcL Gold Tube HOLD Result Value Ref Range Gold Hold Sample in lab. ABORH Recheck Status Result Value Ref Range ABORH Recheck Order Order Placed ABORH Type Recheck Complete L-Lactate2 Whole Blood Result Value Ref Range Lactate WB 0.6 0.5 - 2.2 mmol/L Urinalysis with reflex Culture Result Value Ref Range Glucose UA Negative Negative mg/dL Protein UA Negative Negative mg/dL Bilirubin UA Negative Negative mg/dL Urobilinogen UA Normal Normal mg/dL pH UA 5.0 5.0 - 8.0 Blood UA Small (A) Negative mg/dL Ketones UA >=80 (CRIT) Negative mg/dL Nitrite UA Negative Negative Leukocytes UA Negative Negative mcL Appearance UA Clear Clear Spec [place] UA 1.026 1.002 - 1.030 Color UA Yellow Yellow Culture Reflexed No Urine Hold Result Value Ref Range Urine Hold Sample in lab. Urinalysis Microscopic Exam Result Value Ref Range RBC UA 2 0 - 4 /HPF WBC UA 0 0 - 5 /HPF Bacteria UA Rare (A) None /HPF Squam Epith UA 2 <=4 /HPF CaOx Leta UA Occasional (A) None /HPF Hemogram Result Value Ref Range WBC 5.6 4.0 - 9.5 x10(3)/mcL RBC 2.81 (L) 4.00 - 5.21 x10(6)/mcL Hemoglobin 8.9 (L) 11.7 - 15.5 gm/dL Hematocrit 27.6 (L) 35.7 - 45.8 % MCV 98.2 (H) 82.6 - 94.4 fL MCH 31.7 27.1 - 32.0 pg MCHC 32.2 31.7 - 35.0 gm/dL Platelets 276 145 - 357 x10(3)/mcL RDWSD 48.8 (H) 37.0 - 46.0 fL RDWCV 13.5 11.5 - 14.1 % MPV 9.3 7.6 - 12.9 fL nRBC % Auto 0.0 % nRBC Abs Auto 0.000 0.000 - 0.000 x10(3)/mcL Basic Metabolic Panel (non-fasting) Result Value Ref Range Glucose Lvl 69 65 - 199 mg/dL BUN 15 8 - 18 mg/dL Creatinine 0.59 (L) 0.70 - 1.20 mg/dL Sodium 140 135 - 145 mmol/L Potassium 3.9 3.5 - 5.0 mmol/L Chloride 105 98 - 107 mmol/L CO2 22 22 - 31 mmol/L Anion Gap 13 5 - 15 mmol/L Calcium 7.5 (L) 8.5 - 10.5 mg/dL eGFR 92 >=60 mL/min/1.73 m?? eGFR 107 >=60 mL/min/1.73 m?? Imaging: - Request For 2nd Read Ct Abdomen & Pelvis Result Date: 01/11/2018 EXAMINATION: REQUEST FOR 2ND READ CT ABDOMEN AND PELVIS CLINICAL HISTORY: ?free peritoneal air; WhatModality is the exam? CT Scan; Body Part (please add comments as necessary): abdomen/pelvis; I believe a reinterpretation of this exam may alter care of Patient. Yes TECHNIQUE: Reinterpretation requestfor outside CT abdomen/pelvis with intravenous contrast. Absence of enteric contrast renders suboptimal assessment of bowel lumen and surrounding soft tissue structures/viscera. COMPARISON: None FINDINGS: Included Lower Chest: Unremarkable. Liver: Unremarkable. Gallbladder: Unremarkable. Spleen: Unrema rkable. Pancreas: Unremarkable. Adrenal Glands: Unremarkable. Kidneys: Horseshoe kidney with scattered hypodensities too small to characterize, although a small partially exophytic focus at the LEFT moiety appears to be partially enhancing. Punctate nonobstructive calculus at the RIGHT moiety inferiorly. Urinary bladder: Unremarkable. GI/Mesentery/Peritoneum: Trace pneumoperitoneum anterior to the liver. There is free air scattered throughout the right lower quadrant, which appears to arise from thececum. There is streaky hyperattenuation within the cecum, suggestive of active bleeding. There is inflammatory fat stranding surrounding the cecum and adjacent mesentery. There is no fluid organization to suggest phlegmon or abscess. Ascending and transverse colon are dilated measuring up to 4.6 cm with air-fluid levels suggestive of ileus, with a gradual transition to normal caliber abdomen and distal transverse colon. Lymphatic System: No lymphadenopathy identified. Vasculature: Nonaneurysmal abdominal aorta. Osseous Structures: No acute abnormality identified. 1. Large bowel perforation of the right colon. The site of injury appears to be the cecum where there is streaky high attenuation material consistent with acute hemorrhage and active bleeding. 2. Pneumoperitoneum. 3. No abscess or phlegmon identified. 4. Horseshoe kidney, with indeterminate partially enhancing small lesion within the LEFT moiety; recommend further evaluation with sonogram or MRI if there are no contraindications (unexpected finding). Preliminary report signed by: Lee Bruner at 01/11/2018 1:07 AM I have personally reviewed the image(s) and the residents interpretation and agree withthe findings, Sg Jamison at 01/11/2018 6:06 AM -Xr Chest Pa Or Ap 1 View Result Date: 01/11/2018 EXAMINATION: XR CHEST PA OR AP 1 VIEW CLINICAL HISTORY: told she had bubbles on her CT after colonoscopy ?free air, upright pls TECHNIQUE: AP chest radiograph COMPARISON: None FINDINGS: Mild streaky basilar subsegmental atelectasis and/or scarring. No confluent airspace opacity or pneumothorax definitively identified. Cardiomediastinal contours within normal limits for age. There is no free air seen under the diaphragm to suggest pneumoperitoneum. Right cardiophrenic angle is not included in the study. The left cardiophrenic angle is sharp. Healed posterior right fifth rib fracture. No radiographic evidence of pneumoperitoneum identified. Preliminary report signed by: Lee Bruner at 01/10/2018 11:49 PM I have personally reviewed the image(s) and the residents interpretation and agree with the findings, Sg Jamison at 01/11/2018 12:12 AM Consults: -General surgery Medications given: -Zosyn 4.5 g IV -1 L normal saline IV fluid bolus Assessment and Plan: Assessment: 72 y.o. female presenting with pneumoperitoneum after a recent colonoscopy. She was well-appearing and had a benign abdominal exam. Hemodynamic stable. Anemia with a hemoglobin of 9. Patient was given Zosyn and IV fluids. We consulted general surgery given the results of her CT scan and they will be admitting the patient for observation and consideration of surgical intervention if she were to decompensate. . Dinora Estevez MD Resident 01/11/18 0740 Associated attestation - Sylvia Olvera MD - 01/23/2018 1:13 PM EDT ED ATTENDING ATTESTATION NOTE The patient was seen in conjunction with Dr. Estevez, the resident physician. I have independently performed the castellon portions of the history and physical exam. I have reviewed the nursing notes, vital signs, and all diagnostic studies personally including labs, imaging studies and EKGs. I have discussed the details of the case with the resident and agree with the assessment and plan as described in the resident note above unless noted otherwise in my separate note. documented in this encounter Miscellaneous Notes Plan of Care - Dennise Moffett RN - 01/13/2018 4:35 AM EDT Problem: Patient Care Overview Goal: Plan of Care Review Outcome: Ongoing (Interventions Implemented as Appropriate) 01/11/18 1522 01/12/18 1924 Coping/Psychosocial Plan Of Care Reviewed With -- patient Plan of Care Review Progress improving -- OUTCOME EVALUATION NOTE: OUTCOME SUMMARY: Leeanne had a quiet shift. No c/o pain. No c/o nausea. VSS. No BM this shift. UOP adequate. Toleratingregular diet well. Pt resting between care. Ambulated in the hallway independently x1. Update 0641 pt had small dark stool with some blood x2, reports no new additional discomfort PLAN MOVING FORWARD: ?? Continue to manage pain. Monitor stool characteristics. Promote OOB and ambulation. ? INDIVIDUALIZED FALL PREVENTION INTERVENTIONS: Medium Falls Risk ? Patient-specific fall risk factors per assessment: [current deficits]:?Pt admitted with abdominalpain and bleeding per rectum s/p colonoscopy on 01/10. Pt has continuous monitoring and IVF. ? Assistance [level of assistance required for transfers and ambulation]:??Independent/SBA ? Supervision [direct monitoring required during toileting and ADLs]:?None ? Surveillance [continuous indirect monitoring]:?Bed/chair alarm, purposeful rounding, environmental modification (floor free of clutter, tubing secured), bed in low position, lightening adjusted for task/safety, nonskid slippers when out of bed, wheels locked, call light in reach, upper side-rails raised X2, ID band on. ? Patient-specific fall prevention interventions for sensory deficits provided, if applicable: [X] N/A ? CPG GOAL OUTCOME EVALUATION: Goal: Individualization & Mutuality Outcome: Ongoing (Interventions Implemented as Appropriate) 01/11/1849901/11/18 1522 Individualization Patient Specific Interventions -- serial abdominal exams and H/H monitoring Mutuality/Individual Preferences What Anxieties, Fears or Concerns Do You Have About Your Health or Care? none -- What Questions Do You Have About Your Health or Care? None -- What Information Would Help Us Give You More Personalized Care? None -- Goal: Fall Prevention-Safe Patient Handling Outcome: Ongoing (Interventions Implemented as Appropriate) 01/12/181923 [place] Fall Risk History of Falling 0 Secondary Diagnosis 15 Ambulatory Aids 0 Intravenous Therapy/Heparin/Saline Lock 20 Gait/Transferring 0 Mental Status 0 Score 35 OTHER [place] Fall Risk Med Restraint Interventions Safety Promotion/Fall Prevention fall prevention program maintained;nonskid shoes/slippers when out of bed;safety round/check completed Positioning Body Position independent Activity Activity Type activity adjusted per tolerance Activity Assistance Provided independent Assistive Device Utilized none Goal: Infection Control Outcome: Ongoing (Interventions Implemented as Appropriate) 01/12/181923 Safety Interventions Isolation Precautions standard precautions maintained Infection Prevention rest/sleep promoted Coping Strategies Supportive Measures active listening utilized;self-care encouraged;verbalization of feelings encouraged Goal: Discharge Needs Assessment Outcome: Ongoing (Interventions Implemented as Appropriate) 01/11/1849901/11/18 1522 Discharge Needs Assessment Concerns To Be Addressed -- no discharge needs identified Living Environment Transportation Available car -- Goal: Interdisciplinary Rounds/Family Conf Outcome: Ongoing (Interventions Implemented as Appropriate) 01/11/18 1522 Interdisciplinary Rounds/Family Conf Participants nursing;physician;patient Problem: Gastrointestinal Bleeding (Adult) Goal: Signs and Symptoms of Listed Potential Problems Will be Absent, Minimized or Managed (Gastrointestinal Bleeding) Signs and symptoms of listed potential problems will be absent, minimized or managed by discharge/transition of care (reference Gastrointestinal Bleeding (Adult) CPG). Outcome: Ongoing (Interventions Implemented as Appropriate) 01/12/18 1924 Gastrointestinal Bleeding Problems Assessed (GI Bleeding) all Problems Present (GI Bleeding) none Plan of Care - Dennise Moffett RN - 01/12/2018 3:36 AM EDT Problem: Patient Care Overview Goal: Plan of Care Review Outcome: Ongoing (Interventions Implemented as Appropriate) 01/11/18 1522 01/11/182117 Coping/Psychosocial Plan Of Care Reviewed With -- patient Plan of Care Review Progress improving -- OUTCOME EVALUATION NOTE: OUTCOME SUMMARY: Leeanne had a quiet shift. Some c/o 4/10 pain from caffeine headache, PRN tylenol administered with some relief. Some nausea at the beginning of the shift, PRN zofran (PO) administered with relief. No BMthis shift. Voiding independently. Pt resting between care. VSS. Some episodes of apnea relieved by putting the HOB up and administering 1L O2 via NC. Will continue to monitor O2 saturation. Pt requesting 10mg of Ambien at bedtime to match home dosage instead of current 5mg, notified, no new orders. Pt resting between care but struggles with getting back to sleep after being woken up. Update 0347 modified Ambien order to match pt's home dose starting 01/12/2018 @ 2100 PLAN MOVING FORWARD: Maintain NPO status in case surgical intervention is necessary. Continue to monitor H/H per MD order. Continue to monitor stool output and assess color for s/s active bleeding. ?? INDIVIDUALIZED FALL PREVENTION INTERVENTIONS: Medium Falls Risk ? Patient-specific fall risk factors per assessment: [current deficits]:?Pt admitted with abdominalpain and bleeding per rectum s/p colonoscopy on 01/10. Pt has continuous monitoring and IVF. Assistance [level of assistance required for transfers and ambulation]:??Independent/SBA ? Supervision [direct monitoring required during toileting and ADLs]:?None ? Surveillance [continuous indirect monitoring]:?Bed/chair alarm, purposeful rounding, environmental modification (floor free of clutter, tubing secured), bed in low position, lightening adjusted for task/safety, nonskid slippers when out of bed, wheels locked, call light in reach, upper side-rails raised X2, ID band on. ? Patient-specific fall prevention interventions for sensory deficits provided, if applicable: [X] N/A ? CPG GOAL OUTCOME EVALUATION: Goal: Individualization & Mutuality Outcome: Ongoing (Interventions Implemented as Appropriate) 01/11/1849901/11/18 1522 Individualization Patient Specific Interventions -- serial abdominal exams and H/H monitoring Mutuality/Individual Preferences What Anxieties, Fears or Concerns Do You Have About Your Health or Care? none -- What Questions Do You Have About Your Health or Care? None -- What Information Would Help Us Give You More Personalized Care? None -- Goal: Fall Prevention-Safe Patient Handling Outcome: Ongoing (Interventions Implemented as Appropriate) 01/11/182117 [place] Fall Risk History of Falling 0 Secondary Diagnosis 15 Ambulatory Aids 0 Intravenous Therapy/Heparin/Saline Lock 20 Gait/Transferring 0 Mental Status 0 Score 35 OTHER [place] Fall Risk Med Restraint Interventions Safety Promotion/Fall Prevention activity supervised;fall prevention program maintained;nonskid shoes/slippers when out of bed;safety round/check completed Positioning Body Position independent Activity Activity Type activity adjusted per tolerance Activity Assistance Provided independent Assistive Device Utilized none Goal: Infection Control Outcome: Ongoing (Interventions Implemented as Appropriate) 01/11/182117 Safety Interventions Isolation Precautions standard precautions maintained Infection Prevention environmental surveillance performed;rest/sleep promoted Coping Strategies Supportive Measures active listening utilized;relaxation techniques promoted;self-care encouraged;verbalization of feelings encouraged Goal: Discharge Needs Assessment Outcome: Ongoing (Interventions Implemented as Appropriate) 01/11/1849901/11/18 1522 Discharge Needs Assessment Concerns To Be Addressed -- no discharge needs identified Living Environment Transportation Available car -- Goal: Interdisciplinary Rounds/Family Conf Outcome: Ongoing (Interventions Implemented as Appropriate) 01/11/18 1522 Interdisciplinary Rounds/Family Conf Participants nursing;physician;patient Problem: Gastrointestinal Bleeding (Adult) Goal: Signs and Symptoms of Listed Potential Problems Will be Absent, Minimized or Managed (Gastrointestinal Bleeding) Signs and symptoms of listed potential problems will be absent, minimized or managed by discharge/transition of care (reference Gastrointestinal Bleeding (Adult) CPG). Outcome: Ongoing (Interventions Implemented as Appropriate) 01/11/18 2118 Gastrointestinal Bleeding Problems Assessed (GI Bleeding) all Problems Present (GI Bleeding) none Plan of Care - Patricia Mir RN - 01/11/2018 3:30 PM EDT Problem: Patient Care Overview Goal: Plan of Care Review Outcome: Ongoing (Interventions Implemented as Appropriate) 01/11/18 1522 Coping/Psychosocial Plan Of Care Reviewed With patient Plan of Care Review Progress improving OUTCOME EVALUATION NOTE: OUTCOME SUMMARY: Ivet c/o intermittent abdominal cramping this morning followed by 2 episodes of loose, bloody diarrhea. Cramping resolved afterward and no more BM's this shift. Pt states she is passing flatus. Abdomen remains soft throughout the shift. Ivet's main c/o pain is a headache rated about 4/10 throughout the shift that she suspects is from caffeine withdrawal. PRN tylenol administered q4h with little effect. Paged covering MD in attempt to get caffeine tabs ordered. Serial H/H monitored q8h as ordered and is stable/increasing.Pt remains NPO with IVF and intermittent antibiotic infusions administered asordered. Pt denies N/V and CP and SOB. Carmine visiting at bedside for most of the shift. PLAN MOVING FORWARD: Pt is NPO in case surgical intervention is necessary. Continue q8h H/H monitoring as ordered. Continue to monitor stool output and assess color for s/s active bleeding. INDIVIDUALIZED FALL PREVENTION INTERVENTIONS: MEDIUM Patient-specific fall risk factors per assessment: [current deficits]: Pt admitted with abdominal pain and bleeding per rectum s/p colonoscopy on 01/10. Pt has continuous monitoring and IVF. Assistance [level of assistance required for transfers and ambulation]: SBA/independent Supervision [direct monitoring required during toileting and ADLs]: none Surveillance [continuous indirect monitoring]: environmental modifications (waste basket is out of the path and the IV tubing and cords are free from the floor), lighting adjusted for task, bed in low position, wheels locked, side rails up (x2), nonskid socks worn OOB, and call light is within reach at all times. Patient-specific fall prevention interventions for sensory deficits provided, if applicable: [X] N/A CPG GOAL OUTCOME EVALUATION: Goal: Individualization & Mutuality Outcome: Ongoing (Interventions Implemented as Appropriate) 01/11/1849901/11/18 152 Individualization Patient Specific Interventions -- serial abdominal exams and H/H monitoring Mutuality/Individual Preferences What Anxieties, Fears or Concerns Do You Have About Your Health or Care? none -- What Questions Do You Have About Your Health or Care? None -- What Information Would Help Us Give You More Personalized Care? None -- Goal: Fall Prevention-Safe Patient Handling Outcome: Ongoing (Interventions Implemented as Appropriate) 01/11/18 05001/11/18 0723 [place] Fall Risk History of Falling -- 0 Secondary Diagnosis -- 15 Ambulatory Aids -- 0 Intravenous Therapy/Heparin/Saline Lock -- 20 Gait/Transferring -- 0 Mental Status -- 0 Score -- 35 OTHER [place] Fall Risk -- Med Restraint Interventions Safety Promotion/Fall Prevention -- activity supervised;fall prevention program maintained;nonskid shoes/slippers when out of bed;muscle strengthening facilitated Positioning Body Position -- independent Activity Activity Type -- ambulated in [place];ambulated to bathroom Activity Assistance Provided -- independent Assistive Device Utilized none -- Goal: Infection Control Outcome: Ongoing (Interventions Implemented as Appropriate) 01/11/18 07 Safety Interventions Isolation Precautions standard precautions maintained Infection Prevention environmental surveillance performed Coping Strategies Supportive Measures active listening utilized;verbalization of feelings encouraged Goal: Discharge Needs Assessment Outcome: Ongoing (Interventions Implemented as Appropriate) 01/11/18 152 Discharge Needs Assessment Concerns To Be Addressed no discharge needs identified Goal: Interdisciplinary Rounds/Family Conf Outcome: Ongoing (Interventions Implemented as Appropriate) 01/11/181521 Interdisciplinary Rounds/Family Conf Participants nursing;physician;patient Problem: Gastrointestinal Bleeding (Adult) Goal: Signs and Symptoms of Listed Potential Problems Will be Absent, Minimized or Managed (Gastrointestinal Bleeding) Signs and symptoms of listed potential problems will be absent, minimized or managed by discharge/transition of care (reference Gastrointestinal Bleeding (Adult) CPG). Outcome: Ongoing (Interventions Implemented as Appropriate) 01/11/18 1522 Gastrointestinal Bleeding Problems Assessed (GI Bleeding) all Problems Present (GI Bleeding) none Consult Note - Billy Howard MD - 01/11/2018 1:29 AM EDT [facility] Department of Surgery Inpatient Consult Note Consultation Requested by: Sylvia Olvera MD HPI: We are seeing Leeanne Bush today at the request of Sylvia Islas MD for evaluationand advice about pneumoperitoneum. This is a 72 y.o. female with PMH HTN who is s/p colonoscopy at [facility] on 01/09/18. She presented to [facility] with BRBPR and abdominal pain. She states she has not felt well since the colonoscopy. She had one episode of passing multiple quarter-sized clots per rectum this morning. She had progressive abdominal pain during the day and decreased appetite which prompted her togo to [facility] ED. On arrival she was hemodynamically normal and labs were within normal limits. She underwent CT scan which showed pneumoperitoneum. She then elected to leave the ED AMA to come to [facility] for further care. On arrival to [facility] she was hemodynamically normal. PMH: Past Medical History: Diagnosis Date ??? Basal cell carcinoma ??? Melanoma PSH: Past Surgical History: Procedure Laterality Date ??? CREATED BY INTERFACE LES(LUMBAR EPIDURAL STERIOD INJECTION-CAUDAL SACRAL Procedure Date: 05/08/2005 ??? CREATED BY INTERFACE LES(LUMBAR EPIDURAL STERIOD INJECTION-CAUDAL SACRAL Procedure Date: 04/19/2005 ??? CREATED BY INTERFACE URETHRAL SUSPENSION,SLING\FASCIA OR SYNTHETIC / FASCIA Procedure Date: 03/15/2006 HOME MEDICATIONS: No current facility-administered medications on file prior to encounter. Current Outpatient Prescriptions on File Prior to Encounter Medication Sig Dispense Refill ??? ciprofloxacin (CIPRO) 500 mg Tablet Take 1 tablet by mouth 2 times daily. Take twice a day for fever with diarrhea. 6 tablet 0 ??? scopolamine (TRANSDERM-SCOP) 1.5 mg [...] tablet Take 5 mg by mouth nightly. ALLERGIES: Allergies Allergen Reactions ??? Shellfish Derived Hives and Other (See Comments) Tongue swelling too ??? Nitrofurantoin Monohyd/M-Cryst Nausea And Vomiting FAMILY HISTORY: non-contributory in any family member SOCIAL HISTORY: Social History Social History ??? Marital status: Spouse name: N/A ??? Number of children: N/A ??? Years of education: N/A Occupational History ??? Not on file. Social History Main Topics ??? Smoking status: Former Smoker ??? Smokeless tobacco: Never Used ??? Alcohol use 4.2 - 8.4 oz/week 7 - 14 Glasses of wine per week ??? Drug use: No ??? Sexual activity: Not on file Other Topics Concern ??? Not on file Social History Narrative ROS: As stated above, otherwise 10 systems negative Pertinent items are noted in HPI. PHYSICAL EXAM Temp: [37 ??C (98.6 ??F)] Heart Rate: [86-90] Resp: [12-16] BP: (115-154)/(60-82) SpO2: [97 %-100 %] Heart Rate from SPO2: [87 bpm-89 bpm] GENERAL: alert, awake and no apparent distress HEENT: Normocephalic, without obvious abnormality, atraumatic Pupils: equal, round, reactive to light, no periorbital ecchymoses; LUNG: equal, clear breath sounds bilaterally and no crepitus CARDIAC: Regular rate and rhythm or without murmur or extra heart sounds ABDOMEN/GI: mildly distended, tender in lower abdomen, no rebound tenderness or involuntary guarding, no abrasions and no contusions EXTREMITIES: normal and symmetric movement, normal range of motion, no joint swelling SKIN: no lacerations, abrasions or contusions on complete skin exam NEURO: no focal deficits LABORATORY DATA Recent Labs 01/10/18 2347 WBC 7.2 HGB 9.0* PLATELET 289 LFT's No results found for: ALKPHOS, AST, ALBUMIN, BILIDIR, BILITOT, ALT, PROT Coags Lab Results Component Value Date INR 1.1 01/10/2018 PT 11.8 01/10/2018 PTT 28 01/10/2018 MICRO: None IMAGING: CT abdomen/pelvis 1. Large bowel perforation of the right colon. The site of injury appears to be the cecum where there is streaky high attenuation material consistent with acute hemorrhage. 2. Pneumoperitoneum. 3. No abscess or phlegmon. 4. Horseshoe kidney. ?? IMPRESSION: Leeanne Bush is a 72 y.o. female with PMH HTN who presented with pneumoperitoneum. She clinically looks well, is hemodynamically stable and a benign abdominal examination. Will plan to observe for now given her clinical picture. Will monitor closely for any changes. RECOMMENDATION: -admit to Dr. Lee LUNDY attending -keep NPO -serial abdominal examinations -recheck hemogram in AM -IVF -ABx: miles Monroy MD 01/11/2018 I saw this pt in the ED with Dr. Monroy and agree with her above plan. The pt currently looks greatwith no abdominal pain nor tendernes to palpation. Will admit for antibiotics and observation. Billy Howard ED Triage - Linda Kelly RN - 01/10/2018 7:06 PM EDT 72 yo F in via triage with rectal bleeding post colonoscopy yesterday. told pt she may have clipped the colon when trying to remove a polyp. Pt concerned for need for ABX and wants to be admitted here vs. OSH. Reports there is a lot of blood and I was going to be admitted there but I chose to come here. Ambulates with steady gait, skin PWD. documented in this encounter Plan of Treatment Upcoming Encounters Date Type Specialty Care Team Description 03/14/2022 Office Visit Dermatology [place] Edgar MD [facility] ER [address] [place], [place] [address] (Wo rk) documented as of this encounter Procedures Procedure Name Priority Date/Time Associated Comments Diagnosis HEMOGRAM Routine 01/13/2018 1:29 AM Results f or this EDT procedure are i n the results section. PHOSPHORUS Routine 01/13/2018 1:29 AM Results f or this EDT procedure are i n the results section. MAGNESIUM Routine 01/13/2018 1:29 AM Results f or this EDT procedure are i n the results section. BASIC METABOLIC PANEL Routine 01/13/2018 1:29 AM Results for this (NON-FASTING) EDT procedure are in the results section. HEMOGRAM Routine 01/12/2018 4:10 AM Results f or this EDT procedure are i n the results section. PHOSPHORUS Routine 01/12/2018 4:10 AM Results f or this EDT procedure are i n the results section. MAGNESIUM Routine 01/12/2018 4:10 AM Results f or this EDT procedure are i n the results section. BASIC METABOLIC PANEL Routine 01/12/2018 4:10 AM Results for this (NON-FASTING) EDT procedure are in the results section. HEMOGRAM Routine 01/11/2018 10:06 Results for this PM EDT procedure are i n the results section. HEMOGRAM Routine 01/11/2018 12:54 Results for this PM EDT procedure are i n the results section. HEMOGRAM STAT 01/11/2018 5:17 AM Results f or this EDT procedure are i n the results section. BASIC METABOLIC PANEL Routine 01/11/2018 5:17 AM Results for this (NON-FASTING) EDT procedure are in the results section. URINALYSIS STAT 01/11/2018 12:38 Results for this MICROSCOPIC EXAM AM EDT procedure a re in the results section. URINE HOLD STAT 01/11/2018 12:38 Results for this AM EDT procedure are i n the results section. URINALYSIS WITH STAT 01/11/2018 12:38 Results for this REFLEX CULTURE AM EDT procedure are in the results section. REQUEST FOR 2ND READ STAT 01/11/2018 12:[address] Res [address] for this CT ABDOMEN AND PELVIS AM EDT proced ure are in the results section. L-LACTATE2 WHOLE Routine 01/10/2018 11:57 Results for this BLOOD PM EDT procedure are i n the results section. ABORH RECHECK STATUS STAT 01/10/2018 11:47 Res ults for this PM EDT procedure are i n the results section. HEMOGRAM STAT 01/10/2018 11:47 Results for this PM EDT procedure are i n the results section. DIFFERENTIAL, STAT 01/10/2018 11:47 Results fo r this AUTOMATED PM EDT procedure are i n the results section. GOLD TUBE HOLD STAT 01/10/2018 11:47 Results f or this PM EDT procedure are i n the results section. ABO/RH TYPING STAT 01/10/2018 11:47 Results fo r this PM EDT procedure are i n the results section. APTT STAT 01/10/2018 11:47 Results for this PM EDT procedure are i n the results section. PROTHROMBIN TIME STAT 01/10/2018 11:47 Results for this PM EDT procedure are i n the results section. CBC (WITH DIFF) STAT 01/10/2018 11:47 PM EDT ANTIBODY SCREEN STAT 01/10/2018 11:47 Results for this PM EDT procedure are i n the results section. TYPE AND SCREEN STAT 01/10/2018 11:47 ([facility]/RIGOBERTO) PM EDT TROPONIN STAT 01/10/2018 11:47 Results for this PM EDT procedure are i n the results section. HEPATIC FUNCTION STAT 01/10/2018 11:47 Results for this PANEL PM EDT procedure are i n the results section. BASIC METABOLIC PANEL STAT 01/10/2018 11:47 Re sults for this (NON-FASTING) PM EDT procedure are in the results section. XR CHEST ONE VIEW STAT 01/10/2018 11:37 Result s for this PM EDT procedure are i n the results section. EKG 12-LEAD STAT 01/10/2018 10:43 Results for this PM EDT procedure are i n the results section. FILM LIBRARY STORAGE STAT 01/10/2018 12:05 Res ults for this ONLY DX ABDOMEN AM EDT procedure ar e in the results section. FILM LIBRARY STORAGE STAT 01/10/2018 12:00 Res ults for this ONLY CT ABDOMEN AND AM EDT procedur e are in PELVIS the results section. FILM LIBRARY STORAGE STAT 01/09/2018 12:05 Res ults for this ONLY DX CHEST AM EDT procedure are in the results section. FILM LIBRARY STORAGE STAT 01/09/2018 12:00 Res ults for this ONLY DX ABDOMEN AM EDT procedure ar e in the results section. documented in this encounter Results Phosphorus (01/13/2018 1:29 AM EDT) athologist Signature Phosphorus 3.2 2.5 - 4.5 [facility]dL [facility] Specimen Anatomical Collection Method Collection Time Receive d Time (Source) Location / / Volume Laterality Blood specimen 01/13/2018 1:29 AM 018 1:42 (specimen) EDT AM EDT Resulting Agency Comment Spec In Lab Billy Howard MD CHEMISTRY ORDERABLES Performing Organization Address City/State/[place] [address] Magnesium (01/13/2018 1:29 AM EDT) P athologist Signature Magnesium 0.85 0.69 - 1.07 [facility] mmol/L [facility] Specimen Anatomical Collection Method Collection Time Receive d Time (Source) Location / / Volume Laterality Blood specimen 01/13/2018 1:29 AM 018 1:42 (specimen) EDT AM EDT Resulting Agency Comment Spec In Lab Billy Howard MD CHEMISTRY ORDERABLES Performing Organization Address City/State/[place] [address] Basic Metabolic Panel (non-fasting) (01/13/2018 1:29 AM EDT) P athologist Signature Glucose Lvl 109 65 - 199 [facility] mg/dL [facility] Comment: Diabetes: >=200 mg/dL plus symp toms BUN 14 8 - 18 mg/dL [facility] Creatinine 0.80 0.70 - 1.20 mg/dL [facility] Sodium 138 135 - 145 mmol/L [facility] Potassium 4.1 3.5 - 5.0 mmol/L [facility] Comment: Please note: ??Patients with WBC >100,00 0 may have falsely elevated Potassium levels. ??For accurate Potassium quantif ication in these patients send serum separator tube (gold top) for subsequent determinations. ??Contact the Clinical Chemistry Laboratory if there are any qu estions. Chloride 102 98 - 107 mmol/L [facility] CO2 23 22 - 31 mmol/L [facility] Anion Gap 13 5 - 15 mmol/L [facility] Calcium 8.6 8.5 - 10.5 mg/dL [facility] Estimated GFR 74 >=60 mL/min/1.73 m?? [facility] Comment: The eGFR was calculated using the CKD-EP I equation. As with all creatinine based estimates of kidney function, eGFR values calculated with the CKD-EPI equation are not accurate in patients wi th acute kidney failure, extremes of body mass or the acutely ill. [email or web address] eGFR 86 >=60 mL/min/1.73 m?? [facility] Comment: The eGFR was calculated using the CKD-EP I equation. As with all creatinine based estimates of kidney function, eGFR values calculated with the CKD-EPI equation are not accurate in patients wi th acute kidney failure, extremes of body mass or the acutely ill. [email or web address] Specimen Anatomical Collection Method Collection Time Receive d Time (Source) Location / / Volume Laterality Blood specimen 01/13/2018 1:29 AM 018 1:42 (specimen) EDT AM EDT Resulting Agency Comment Spec In Lab Billy Howard MD CHEMISTRY ORDERABLES Performing Organization Address City/State/[place] [address] (ABNORMAL) Hemogram (01/13/2018 1:29 AM EDT) Analysis Performed At Patho logist Time Signature WBC 7.4 4.0 - 9.5 [facility] x[facility](3[facility] LABORATORY RBC 3.08 (L) 4.00 - [facility] 5.[address] [facility] x10(6)/[facility] LABORATORY Hemoglobin 9.4 (L) 11.7 - [facility] 15.5 gm/dL [facility] Hematocrit 29.6 (L) 35.7 - [facility] 45.8 % [facility] MCV 96.1 (H) 82.6 - [facility] 94.4 [facility] LABORATORY MCH 30.5 27.1 - [facility] 32.0 pg [facility] MCHC 31.8 31.7 - [facility] 35.0 gm/dL [facility] Platelets 353 145 - 357 [facility] x10(3)/[facility] LABORATORY RDWSD 45.2 37.0 - [facility] 46.0 [facility] LABORATORY RDWCV 12.9 11.5 - [facility] 14.1 % [facility] MPV 9.0 7.6 - 12.9 [facility] nRBC % Auto 0.0 % [facility] nRBC Abs Auto 0.000 0.000 - [facility] 0.[address] [facility] x10(3)/[facility] LABORATORY Specimen Anatomical Collection Method Collection Time Receive d Time (Source) Location / / Volume Laterality Blood specimen 01/13/2018 1:29 AM 018 1:42 (specimen) EDT AM EDT Resulting Agency Comment Spec In Lab Billy Howard MD HEMATOLOGY ORDERABLES Performing Organization Address City/State/[place] [address] (ABNORMAL) Hemogram (01/12/2018 4:10 AM EDT) Analysis Performed At Patho logist Time Signature WBC 5.1 4.0 - 9.5 [facility] LABORATORY RBC 2.91 (L) 4.00 - [facility] [address] [facility] x10(6)/[facility] LABORATORY Hemoglobin 8.9 (L) 11.7 - [facility] 15.5 gm/dL [facility] Hematocrit 28.2 (L) 35.7 - [facility] 45.8 % [facility] MCV 96.9 (H) 82.6 - [facility] 94.4 [facility] LABORATORY MCH 30.6 27.1 - [facility] 32.0 pg [facility] MCHC 31.6 (L) 31.7 - [facility] 35.0 gm/dL [facility] Platelets 289 145 - 357 [facility] x10(3)/[facility] LABORATORY RDWSD 46.1 (H) 37.0 - [facility] 46.0 [facility] LABORATORY RDWCV 12.8 11.5 - [facility] 14.1 % [facility] MPV 9.1 7.6 - 12.9 [facility] LABORATORY nRBC % Auto 0.0 % [facility] nRBC Abs Auto 0.000 0.000 - [facility] 0.[address] [facility] x10(3)/[facility] LABORATORY Specimen Anatomical Collection Method Collection Time Receive d Time (Source) Location / / Volume Laterality Blood specimen 01/12/2018 4:10 AM 018 4:13 (specimen) EDT AM EDT Resulting Agency Comment Spec In Lab Billy Howard MD HEMATOLOGY ORDERABLES Performing Organization Address City/State/ZIP Code Phon e Number [place] [id number] Phosphorus (01/12/2018 4:10 AM EDT) P athologist Signature Phosphorus 3.1 2.5 - 4.5 [facility] mg/dL [facility] Specimen Anatomical Collection Method Collection Time Receive d Time (Source) Location / / Volume Laterality Blood specimen 01/12/2018 4:10 AM 018 4:13 (specimen) EDT AM EDT Resulting Agency Comment Spec In Lab Billy Howard MD CHEMISTRY ORDERABLES Performing Organization Address City/[facility]/ZIP Code Phon e Number [address] Magnesium (01/12/2018 4:10 AM EDT) P athologist Signature Magnesium 0.76 0.69 - 1.07 [facility] mmol/L [facility] Specimen Anatomical Collection Method Collection Time Receive d Time (Source) Location / / Volume Laterality Blood specimen 01/12/2018 4:10 AM 018 4:13 (specimen) EDT AM EDT Resulting Agency Comment Spec In Lab Billy Howard MD CHEMISTRY ORDERABLES Performing Organization Address City/[facility]/ZIP Code Phon e Number [address] (ABNORMAL) Basic Metabolic Panel (non-fasting) (01/12/2018 4:10 AM EDT) athologist Signature Glucose Lvl 57 (L) 65 - 199 [facility] mg/dL [facility] Comment: Diabetes: >=200 mg/dL plus symp toms BUN 11 8 - 18 mg/dL [facility] Creatinine 0.53 (L) 0.70 - 1.20 mg/dL [facility] Sodium 139 135 - 145 mmol/L [facility] Potassium 4.3 3.5 - 5.0 mmol/L [facility] Comment: Please note: ??Patients with WBC >100,00 0 may have falsely elevated Potassium levels. ??For accurate Potassium quantif ication in these patients send serum separator tube (gold top) for subsequent determinations. ??Contact the Clinical Chemistry Laboratory if there are any qu estions. Chloride 104 98 - 107 mmol/L [facility] CO2 18 (L) 22 - 31 mmol/L [facility] Anion Gap 17 (H) 5 - 15 mmol/L [facility] Calcium 8.2 (L) 8.5 - 10.5 mg/dL [facility] Estimated GFR 96 >=60 mL/min/1.73 m?? [facility] Comment: The eGFR was calculated using the CKD-EP I equation. As with all creatinine based estimates of kidney function, eGFR values calculated with the CKD-EPI equation are not accurate in patients wi th acute kidney failure, extremes of body mass or the acutely ill. [email or web address] eGFR 111 >=60 mL/min/1.73 m?? [facility] Comment: The eGFR was calculated using the CKD-EP I equation. As with all creatinine based estimates of kidney function, eGFR values calculated with the CKD-EPI equation are not accurate in patients wi th acute kidney failure, extremes of body mass or the acutely ill. [email or web address] Specimen Anatomical Collection Method Collection Time Receive d Time (Source) Location / / Volume Laterality Blood specimen 01/12/2018 4:10 AM 018 4:13 (specimen) EDT AM EDT Resulting Agency Comment Spec In Lab Billy Howard MD CHEMISTRY ORDERABLES Performing Organization Address City/State/[place] [address] (ABNORMAL) Hemogram (01/11/2018 10:06 PM EDT) Analysis Performed At Patho logist Time Signature WBC 6.2 4.0 - 9.5 [facility] x10(3)/[facility] LABORATORY RBC 2.93 (L) 4.00 - [facility] 5.[address] [facility] x10(6)/[facility] LABORATORY Hemoglobin 9.2 (L) 11.7 - [facility] 15.5 gm/dL [facility] Hematocrit 28.4 (L) 35.7 - [facility] 45.8 % [facility] MCV 96.9 (H) 82.6 - [facility] 94.4 [facility] LABORATORY MCH 31.4 27.1 - [facility] 32.0 [facility] LABORATORY MCHC 32.4 31.7 - [facility] 35.0 gm/dL [facility] Platelets 293 145 - 357 [facility] x10(3)/[facility] LABORATORY RDWSD 46.4 (H) 37.0 - [facility] 46.0 [facility] LABORATORY RDWCV 13.0 11.5 - [facility] 14.1 % [facility] MPV 8.9 7.6 - 12.9 [facility] LABORATORY nRBC % Auto 0.0 % [facility] nRBC Abs Auto 0.000 0.000 - [facility] 0.[address] [facility] x10(3)/[facility] LABORATORY Specimen Anatomical Collection Method Collection Time Receive d Time (Source) Location / / Volume Laterality Blood specimen 01/11/2018 10:06 8 (specimen) PM EDT 10:09 PM EDT Resulting Agency Comment Spec In Lab Billy Howard MD HEMATOLOGY ORDERABLES Performing Organization Address City/State/[place] [address] (ABNORMAL) Hemogram (01/11/2018 12:54 PM EDT) Analysis Performed At Patho logist Time Signature WBC 6.7 4.0 - 9.5 [facility] x10(3)/[facility] LABORATORY RBC 2.96 (L) 4.00 - [facility] 5.[address] [facility] x10(6)/[facility] LABORATORY Hemoglobin 9.3 (L) 11.7 - [facility] 15.5 gm/dL [facility] Hematocrit 28.5 (L) 35.7 - [facility] 45.8 % [facility] MCV 96.3 (H) 82.6 - [facility] 94.4 [facility] LABORATORY MCH 31.4 27.1 - [facility] 32.0 [facility] LABORATORY MCHC 32.6 31.7 - [facility] 35.0 gm/dL [facility] Platelets 282 145 - 357 [facility] x10(3)/[facility] LABORATORY RDWSD 47.3 (H) 37.0 - [facility] 46.0 [facility] LABORATORY RDWCV 13.2 11.5 - [facility] 14.1 % [facility] MPV 9.1 7.6 - 12.9 [facility] LABORATORY nRBC % Auto 0.0 % [facility] nRBC Abs Auto 0.000 0.000 - [facility] 0.[address] [facility] x10(3)/[facility] LABORATORY Specimen Anatomical Collection Method Collection Time Receive d Time (Source) Location / / Volume Laterality Blood specimen 01/11/2018 12:54 8 1:03 (specimen) PM EDT PM EDT Resulting Agency Comment Spec In Lab Billy Howard MD HEMATOLOGY ORDERABLES Performing Organization Address City/State/[place] [address] (ABNORMAL) Basic Metabolic Panel (non-fasting) (01/11/2018 5:17 AM EDT) P athologist Signature Glucose Lvl 69 65 - 199 [facility] mg/dL [facility] Comment: Diabetes: >=200 mg/dL plus symp toms BUN 15 8 - 18 mg/dL [facility] Creatinine 0.59 (L) 0.70 - 1.20 mg/dL [facility] Sodium 140 135 - 145 mmol/L [facility] Potassium 3.9 3.5 - 5.0 mmol/L [facility] Comment: Please note: ??Patients with WBC >100,00 0 may have falsely elevated Potassium levels. ??For accurate Potassium quantif ication in these patients send serum separator tube (gold top) for subsequent determinations. ??Contact the Clinical Chemistry Laboratory if there are any qu estions. Chloride 105 98 - 107 mmol/L [facility] CO2 22 22 - 31 mmol/L [facility] Anion Gap 13 5 - 15 mmol/L [facility] Calcium 7.5 (L) 8.5 - 10.5 mg/dL [facility] Estimated GFR 92 >=60 mL/min/1.73 m?? [facility] Comment: The eGFR was calculated using the CKD-EP I equation. As with all creatinine based estimates of kidney function, eGFR values calculated with the CKD-EPI equation are not accurate in patients wi th acute kidney failure, extremes of body mass or the acutely ill. [email or web address] eGFR 107 >=60 mL/min/1.73 m?? [facility] Comment: The eGFR was calculated using the CKD-EP I equation. As with all creatinine based estimates of kidney function, eGFR values calculated with the CKD-EPI equation are not accurate in patients wi th acute kidney failure, extremes of body mass or the acutely ill. [email or web address]MANnkf Specimen Anatomical Collection Method Collection Time Receive d Time (Source) Location / / Volume Laterality Blood specimen 01/11/2018 5:17 AM 018 6:05 (specimen) EDT AM EDT Resulting Agency Comment Spec In Lab Sylvia Olvera MD CHEMISTRY ORDERABLES Performing Organization Address City/State/[place] [address] (ABNORMAL) Hemogram (01/11/2018 5:17 AM EDT) Analysis Performed At Patho logist Time Signature WBC 5.6 4.0 - 9.5 [facility] [place] x10(3)/[facility] LABORATORY RBC 2.81 (L) 4.00 - MARY BETH [place] 5.[address] [facility] x10(6)/[facility] LABORATORY Hemoglobin 8.9 (L) 11.7 - MARY BETH [place] 15.5 gm/dL [facility] LABORATORY Hematocrit 27.6 (L) 35.7 - MARY BETH [place] 45.8 % [facility] LABORATORY MCV 98.2 (H) 82.6 - M[facility] B[facility] [place] 94.4 fL [facility] LABORATORY MCH 31.7 27.1 - MARY BETH [place] 32.0 pg [facility] LABORATORY MCHC 32.2 31.7 - M[facility] B[facility] [place] 35.0 gm/dL [facility] LABORATORY Platelets 276 145 - 357 [facility] [place] x10(3)/[facility] LABORATORY RDWSD 48.8 (H) 37.0 - [facility] 46.0 [facility] LABORATORY RDWCV 13.5 11.5 - [facility] 14.1 % [facility] LABORATORY MPV 9.3 7.6 - 12.9 [facility] LABORATORY nRBC % Auto 0.0 % [facility] LABORATORY nRBC Abs Auto 0.000 0.000 - [facility] 0.[address] [facility] x10(3)/[facility] LABORATORY Specimen Anatomical Collection Method Collection Time Receive d Time (Source) Location / / Volume Laterality Blood specimen 01/11/2018 5:17 AM 018 6:05 (specimen) EDT AM EDT Resulting Agency Comment Spec In Lab Sylvia Olvera MD HEMATOLOGY ORDERABLES Performing Organization Address City/State/[place] [address] (ABNORMAL) Urinalysis Microscopic Exam (01/11/2018 12:38 AM EDT) Patholo gist Method Time Signature RBC UA 2 0 - 4 [facility] /HPF [facility] LABORATORY WBC UA 0 0 - 5 [facility] /HPF [facility] LABORATORY Bacteria UA Rare (A) None /HPF [facility] LABORATORY Squam Epith 2 <=4 /HPF [facility] LABORATORY CaOx Leta UA Occasional (A) None /HPF [facility] LABORATORY Specimen Anatomical Collection Method Collection Time Receive d Time (Source) Location / / Volume Laterality Urine specimen 01/11/2018 12:38 8 1:14 (specimen) AM EDT AM EDT Resulting Agency Comment Spec In Lab Dinora Estevez MD URINE ORDERABLES Performing Organization Address City/State/ZIP Code Phon e Number [address] Urine Hold (01/11/2018 12:38 AM EDT) P athologist Signature Urine Hold Sample in [facility]. [facility] LABORATORY Specimen Anatomical Collection Method Collection Time Receive d Time (Source) Location / / Volume Laterality Urine specimen Urine / Unknown 01/11/2018 12:38 2017 1:15 (specimen) AM EDT AM EDT Dinora Estevez MD URINE ORDERABLES Performing Organization Address City/[facility]/[place] [address] (ABNORMAL) Urinalysis with reflex Culture (01/11/2018 12:38 AM EDT) [facility] Method Time Signature Glucose UA Negative Negative [facility] mg/dL [facility] LABORATORY Protein UA Negative Negative [facility] mg/dL [facility] LABORATORY Bilirubin UA Negative Negative [facility] mg/dL [facility] LABORATORY Comment: Clinical correlation required for positi ve Urine Bilirubin results as false positive may occur with some drugs and d rug related products. If a false positive is suspected a serum total bili solis should be considered if clinically indicated. Urobilinogen UA Normal Normal mg/dL [facility] LABORATORY pH UA 5.0 5.0 - 8.0 [facility] LABORATORY Blood UA Small (A) Negative mg/dL [facility] LABORATORY Ketones UA >=80 (Critical) Negative mg/dL [facility] LABORATORY Comment: Urinalysis result NOT critical without a combination of Glucose greater than or equal to 500mg/dl AND Ketones greater th an or equal to 80mg/dl. Nitrite UA Negative Negative [facility] LABORATORY Leukocytes UA Negative Negative [facility] LABORATORY Appearance UA Clear Clear [facility] LABORATORY Spec [place] UA 1.026 1.002 - 1.030 [facility] LABORATORY Color UA Yellow Yellow [facility] LABORATORY Culture Reflexed No [facility] LABORATORY Specimen Anatomical Collection Method Collection Time Receive d Time (Source) Location / / Volume Laterality Urine specimen 01/11/2018 12:38 8 1:14 (specimen) AM EDT AM EDT Resulting Agency Comment Spec In Lab Sylvia Olvera MD URINE ORDERABLES Performing Organization Address City/[facility]/[place] [address] (ABNORMAL) Request For 2nd Read CT Abdomen & Pelvis (01/11/2018 12:25 AM EDT) Anatomical Region Laterality Modality Abdomen, Pelvis SO Specimen (Source) Anatomical Location Collection Method / Collectio n Time Received Time / Laterality Volume Impressions 01/11/2018 6:06 AM EDT 1. ??Large bowel perforation of the right colon. The site of injury appears to be the cecum where there is streaky high at tenuation material consistent with acute hemorrhage and active bleeding. 2. ??Pneumoperitoneum. 3. ??No abscess or phlegmon identified. 4. 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 Preliminary report signed by: Lee reyes at 01/11/2018 1:07 AM I have personally reviewed the image(s) and the residents interpretation and agree with the findings, Sg Jamison at 01/11/2018 6:06 AM Narrative 01/11/2018 6:06 AM EDT EXAMINATION: ??REQUEST FOR 2ND READ CT ABDOMEN AND PELVIS CLINICAL HISTORY: ???free peritoneal air ; What Modality is the exam? CT Scan; Body Part (please add comments as necess grant): abdomen/pelvis; I believe a reinterpretation of this exam may alter care of Patient. Yes TECHNIQUE: Reinterpretation request for outside CT abdomen/pelvis with intravenous contrast. Absence of enteric contrast re nders suboptimal assessment of bowel lumen and surrounding soft tissue struct ures/viscera. COMPARISON: ??None FINDINGS: Included Lower Chest: Unremarkable. Liver: Unremarkable. Gallbladder: Unremarkable. Spleen: Unremarkable. Pancreas: Unremarkable. Adrenal Glands: Unremarkable. Kidneys: Horseshoe kidney with scattered hypodensities too small to characterize, although a small partially exophytic focus at the LEFT moiety appears to be partially enhancing. Punct ate nonobstructive calculus at the RIGHT moiety inferiorly. Urinary bladder: Unremarkable. GI/Mesentery/Peritoneum: Trace pneumoper itoneum anterior to the liver. There is free air scattered throughout the right lower quadrant, which appears to arise from the cecum. There is streaky hyperat tenuation within the cecum, suggestive of active bleeding. There is inflammator y fat stranding surrounding the cecum and adjacent mesentery. There is no flui d organization to suggest phlegmon or abscess. Ascending and transverse colon are dilated measuring up to 4.6 cm with air-fluid levels suggestive of ileus, wi th a gradual transition to normal caliber abdomen and distal transverse co merritt. Lymphatic System: No lymphadenopathy caroline ntified. Vasculature: Nonaneurysmal abdominal aor ta. Osseous Structures: No acute abnormality identified. Resulting Agency Comment Unexpected Finding Sylvia Olvera MD IMG OUTSIDE INTERPRETATION O RDERABLES L-Lactate2 Whole Blood (01/10/2018 11:57 PM EDT) athologist Signature Lactate WB 0.6 0.5 - 2.2 [facility] mmol/L [facility] LABORATORY Specimen Anatomical Collection Method Collection Time Receive d Time (Source) Location / / Volume Laterality Blood specimen 01/10/2018 11:57 8 (specimen) PM EDT 11:57 PM EDT Sylvia Olvera MD CHEMISTRY ORDERABLES Performing Organization Address City/State/ZIP Code Phon e Number [address] ABORH Recheck Status (01/10/2018 11:47 PM EDT) [facility] Method Time Signature ABORH Recheck Order Placed [facility] LABORATORY ABORH Type Complete [facility] LABORATORY Specimen Anatomical Collection Method Collection Time Receive d Time (Source) Location / / Volume Laterality Blood specimen 01/10/2018 11:47 8 (specimen) PM EDT 12:01 AM EDT Resulting Agency Comment Spec In Lab Dinora Estevez MD BLOOD BANK ORDERABLES Performing Organization Address City/State/ZIP Code Phon e Number [address] Gold Tube HOLD (01/10/2018 11:47 PM EDT) athologist Signature Gold Hold Sample in [facility]. [facility] LABORATORY Specimen Anatomical Collection Method Collection Time Receive d Time (Source) Location / / Volume Laterality Blood specimen Venous Draw / 01/10/2018 11:47 01/12/20 18 (specimen) Unknown PM EDT 12:01 AM EDT Dinora Estevez MD CHEMISTRY ORDERABLES Performing Organization Address City/State/ZIP Code Phon e Number [address] Differential, Automated (01/10/2018 11:47 PM EDT) P athologist Signature Neutrophils % 55.6 % [facility] LABORATORY Neutr Abs (ANC) 4.02 1.70 - [facility] 6.[address] [facility] x10(3)/[facility] LABORATORY Lymphocytes % 33.1 % [facility] LABORATORY Lymphocytes Abs 2.4 0.9 - 3.2 [facility] x10(3)/[facility] LABORATORY Monocytes % 7.7 % [facility] LABORATORY Monocyte Abs 0.6 0.3 - 0.9 [facility] x10(3)[facility] LABORATORY Eosinophils % 3.2 % [facility] LABORATORY Eosinophils Abs 0.2 0.0 - 0.4 [facility] x10(3)/[facility] LABORATORY Basophils % 0.3 % [facility] LABORATORY Basophils Abs 0.0 0.0 - 0.1 [facility] x10(3)/[facility] LABORATORY Immature Gran % 0.10 % [facility] LABORATORY Comment: Immature granulocytes(IG's)percentage an d absolute count will include metamyelocytes, myelocytes, and promyelo cytes. Blood smears from CBCs yielding IG's will be scanned manually for concor dance. If this scan disagrees with the automated IG or if promyelocytes are not ed, a manual differential will be performed. Karla Gran Abs 0.01 0.00 - 0.04 x10(3)/[facility] Y [facility] LABORATORY Specimen (Source) Anatomical Collection Method Collection Time Re ceived Time Location / / Volume Laterality Blood specimen 01/10/2018 11:47 8 (specimen) PM EDT Resulting Agency Comment Spec In Lab Dinora Estevez MD HEMATOLOGY ORDERABLES Performing Organization Address City/State/ZIP Code Phon e Number [address] (ABNORMAL) Hemogram (01/10/2018 11:47 PM EDT) [facility] Signature WBC 7.2 4.0 - 9.5 [facility] x10(3)/[facility] LABORATORY RBC 2.96 (L) 4.00 - [facility] [place] 5.[address] [facility] x10(6)/[facility] LABORATORY Hemoglobin 9.0 (L) 11.7 - [facility] 15.5 gm/dL [facility] LABORATORY Hematocrit 28.4 (L) 35.7 - [facility] 45.8 % [facility] LABORATORY MCV 95.9 (H) 82.6 - [facility] 94.4 [facility] LABORATORY MCH 30.4 27.1 - [facility] 32.0 pg [facility] LABORATORY MCHC 31.7 31.7 - [facility] 35.[facility] gm/dL [facility] LABORATORY Platelets 289 145 - 357 [facility] x10(3)/[facility] LABORATORY RDWSD 48.3 (H) 37.0 - [facility] 46.0 [facility] LABORATORY RDWCV 13.5 11.5 - [facility] [place] 14.1 % [facility] LABORATORY MPV 9.2 7.6 - 12.9 [facility] LABORATORY nRBC % Auto 0.0 % [facility] nRBC Abs Auto 0.000 0.000 - [facility] 0.[address] [facility] x10(3)/[facility] LABORATORY Specimen (Source) Anatomical Collection Method Collection Time Re ceived Time Location / / Volume Laterality Blood specimen 01/10/2018 11:47 8 (specimen) PM EDT Resulting Agency Comment Spec In Lab Dinora Estevez MD HEMATOLOGY ORDERABLES Performing Organization Address City/State/[place] [address] Antibody screen (01/10/2018 11:47 PM EDT) Patholo gist Method Time Signature Ab Screen Negative [facility] LABORATORY Expires at 01/13/2018 MARY BETH MELGAR [id number] on: [facility] LABORATORY Specimen Anatomical Collection Method Collection Time Receive d Time (Source) Location / / Volume Laterality Blood specimen 01/10/2018 11:47 8 (specimen) PM EDT 12:01 AM EDT Resulting Agency Comment Spec In Lab Dinora Estevez MD BLOOD BANK ORDERABLES Performing Organization Address City/State/[place] [address] ABO/Rh Typing (01/10/2018 11:47 PM EDT) athologist Signature ABORh Type A Neg [facility] LABORATORY Specimen Anatomical Collection Method Collection Time Receive d Time (Source) Location / / Volume Laterality Blood specimen 01/10/2018 11:47 8 (specimen) PM EDT 12:01 AM EDT Resulting Agency Comment Spec In Lab Dinora Estevez MD BLOOD BANK ORDERABLES Performing Organization Address City/[facility]/[place] [address] Troponin T (01/10/2018 11:47 PM EDT) athologist Signature Troponin-T <0.01 0.00 - 0.00 [facility] ng/mL [facility] LABORATORY Comment: The 99th percentile for Troponin T is le ss than 0.01 ng/mL, any detectable cTnT concentration using this assay should be considered elevated. According to the third universal definit ion of myocardial infarction the following criteria with a clinical prese ntation consistent with acute myocardial ischemia meets the diagnosis for a myocardial infarction (UT). Detection of a rise and/or fall of cTnT, with at least one value greater than the 99th percentile (> or = 0.01) and wi th at least one of the following ?? Symptoms of ischemia ?? New or presumed new significant ST-se gment-T wave (ST-T) changes or new left bundle branch block (LBBB) ?? Development of pathologic Q waves in the ECG ?? Imaging evidence of new loss of viabl e myocardium or new regional wall motion abnormality ?? Identification of an intracoronary th rombus by angiography or autopsy Samples for cTnT testing should be obtai lauren serially upon first assessment and again 3 to 6 hours later. If the clinica l suspicion is high and previous samples have been negative an additional sample may be indicated. Reference: Third [place] Definition of Myocardial Infarction. Journal of the [place] [employer] 2012;60:1581-98 Specimen (Source) Anatomical Collection Method Collection Time Re ceived Time Location / / Volume Laterality Blood specimen 01/10/2018 11:47 8 (specimen) PM EDT Resulting Agency Comment Spec In Lab Sylvia Olvera MD CHEMISTRY ORDERABLES Performing Organization Address [facility] [place] [address] APTT (01/10/2018 11:47 PM EDT) athologist Signature PTT 28 25 - 37 sec [facility] LABORATORY Comment: The PTT is NOT appropriate for heparin m onitoring. Use the Anti-Xa level for heparin monitoring (HEP UFH) or LMWH mon itoring (HEP LMW). A PTT less than 37 seconds generally indicates adequate hem ostasis. Specimen (Source) Anatomical Collection Method Collection Time Re ceived Time Location / / Volume Laterality Blood specimen 01/10/2018 11:47 8 (specimen) PM EDT Resulting Agency Comment Spec In Lab Sylvia Olvera MD HEMATOLOGY ORDERABLES Performing Organization Address City/[facility] [place] [address] Prothrombin Time (01/10/2018 11:47 PM EDT) P athologist Signature PT 11.8 9.4 - 12.5 [facility] LABORATORY INR 1.1 [facility] LABORATORY Comment: An INR <2.0 indicates adequate procoagul ant activity for hemostasis in most patients without underlying bleeding dis orders, though the INR may not adequately reflect hemostatic capacity i n patients with liver disease and synthetic impairment. The recommended ta rget INR range for therapeutic anticoagulation is 2.0 ? 3.0 for most applications, though lower and higher ranges may be appropriate depending on c linical circumstances. Specimen (Source) Anatomical Collection Method Collection Time Re ceived Time Location / / Volume Laterality Blood specimen 01/10/2018 11:47 8 (specimen) PM EDT Resulting Agency Comment Spec In Lab Sylvia Olvera MD HEMATOLOGY ORDERABLES Performing Organization Address City/State/[place] [address] Hepatic Function Panel (01/10/2018 11:47 PM EDT) athologist Signature Total Protein 6.2 6.1 - 8.0 [facility] [place] gm/dL [facility] LABORATORY Albumin 4.0 3.2 - 5.2 [facility] [place] gm/dL [facility] LABORATORY AST 11 0 - 30 [facility] [place] unit/L [facility] LABORATORY ALT 10 0 - 30 [facility] [place] unit/L [facility] LABORATORY Alk Phos 59 40 - 104 [facility] [place] unit/L [facility] LABORATORY Total 0.4 0.2 - 1.3 [facility] [place] Bilirubin mg/dL [facility] LABORATORY Bili, Direct 0.1 0.0 - 0.3 [facility] [place] mg/dL [facility] LABORATORY Specimen (Source) Anatomical Collection Method Collection Time Re ceived Time Location / / Volume Laterality Blood specimen 01/10/2018 11:47 8 (specimen) PM EDT Resulting Agency Comment Spec In Lab Sylvia Olvera MD CHEMISTRY ORDERABLES Performing Organization Address City/[facility]/[place] [address] (ABNORMAL) Basic Metabolic Panel (non-fasting) (01/10/2018 11:47 PM EDT) athologist [facility] Glucose Lvl 82 65 - 199 [facility] mg/dL [facility] LABORATORY Comment: Diabetes: >=200 mg/dL plus symp toms BUN 17 8 - 18 mg/dL [facility] LABORATORY Creatinine 0.67 (L) 0.70 - 1.20 mg/dL [facility] LABORATORY Sodium 142 135 - 145 mmol/L [facility] LABORATORY Potassium 4.0 3.5 - 5.0 mmol/L [facility] LABORATORY Comment: Please note: ??Patients with WBC >100,00 0 may have falsely elevated Potassium levels. ??For accurate Potassium quantif ication in these patients send serum separator tube (gold top) for subsequent determinations. ??Contact the Clinical Chemistry Laboratory if there are any qu estions. Chloride 104 98 - 107 mmol/L [facility] LABORATORY CO2 25 22 - 31 mmol/L [facility] LABORATORY Anion Gap 13 5 - 15 mmol/L [facility] LABORATORY Calcium 8.0 (L) 8.5 - 10.5 mg/dL [facility] LABORATORY Estimated GFR 88 >=60 mL/min/1.73 m?? [facility] LABORATORY Comment: The eGFR was calculated using the CKD-EP I equation. As with all creatinine based estimates of kidney function, eGFR values calculated with the CKD-EPI equation are not accurate in patients wi th acute kidney failure, extremes of body mass or the acutely ill. [email or web address] eGFR 102 >=60 mL/min/1.73 m?? [facility] LABORATORY Comment: The eGFR was calculated using the CKD-EP I equation. As with all creatinine based estimates of kidney function, eGFR values calculated with the CKD-EPI equation are not accurate in patients wi th acute kidney failure, extremes of body mass or the acutely ill. [email or web address] NORMANnkf Specimen (Source) Anatomical Collection Method Collection Time Re ceived Time Location / / Volume Laterality Blood specimen 01/10/2018 11:47 8 (specimen) PM EDT Resulting Agency Comment Spec In Lab Sylvia Olvera MD CHEMISTRY ORDERABLES Performing Organization Address City/State/ZIP Code Phon e Number [place] [id number] LAB[address]ORY [address] XR Chest PA or AP 1 view (01/10/2018 11:37 PM EDT) Anatomical Region Laterality Modality Chest N/A Digital Radiography Specimen (Source) Anatomical Location Collection Method / Collectio n Time Received Time / Laterality Volume Impressions 01/11/2018 12:12 AM EDT No radiographic evidence of pneumoperitoneum identified. Preliminary report signed by: Lee reyes at 01/10/2018 11:49 PM I have personally reviewed the image(s) and the residents interpretation and agree with the findings, Sg Jamison at 01/11/2018 12:12 AM Narrative 01/11/2018 12:12 AM EDT EXAMINATION: XR CHEST PA OR AP 1 VIEW CLINICAL HISTORY: told she had bubbles o n her CT after colonoscopy ?free air, upright pls TECHNIQUE: AP chest radiograph COMPARISON: None FINDINGS: Mild streaky basilar subsegmental atelec tasis and/or scarring. No confluent airspace opacity or pneumothorax definit ively identified. Cardiomediastinal contours within normal limits for age. T here is no free air seen under the diaphragm to suggest pneumoperitoneum. R ight cardiophrenic angle is not included in the study. The left cardiophrenic ang le is sharp. Healed posterior right fifth rib fracture. Procedure Note Sg Jamison MD - 01/11/2018 EXAMINATION: XR CHEST PA OR AP 1 VIEW CLINICAL HISTORY: told she had bubbles o n her CT after colonoscopy ?free air, upright pls TECHNIQUE: AP chest radiograph COMPARISON: None FINDINGS: Mild streaky basilar subsegmental atelec tasis and/or scarring. No confluent airspace opacity or pneumothorax definit ively identified. Cardiomediastinal contours within normal limits for age. T here is no free air seen under the diaphragm to suggest pneumoperitoneum. R ight cardiophrenic angle is not included in the study. The left cardiophrenic ang le is sharp. Healed posterior right fifth rib fracture. IMPRESSION No radiographic evidence of pneumoperito neum identified. Preliminary report signed by: Lee reyes at 01/10/2018 11:49 PM I have personally reviewed the image(s) and the residents interpretation and agree with the findings, Sg Jamison at 01/11/2018 12:12 AM Sylvia Olvera MD IMG DX ORDERABLES EKG 12 Lead (01/10/2018 10:43 PM EDT) [facility] gist Method Time Signature Ventricular rate 89 BPM MUSE SYSTEM Atrial Rate 89 BPM MUSE SYSTEM P-R Interval 188 ms MUSE SYSTEM QRS Duration 78 ms MUSE SYSTEM Q-T Interval 374 ms MUSE SYSTEM QTC Calculated 455 ms MUSE SYSTEM (Bezet) Calculated P [place] 66 degrees MUSE SYSTEM Calculated R [place] -27 degrees MUSE SYSTEM Calculated T [place] 35 degrees MUSE SYSTEM INTERPRETATION Sinus rhythm with Fusion complexes MUSE SYSTEM Leftward axis Low voltage QRS Borderline ECG When compared with ECG of 04-MAR-2006 15:52, Fusion complexes are now Present QT has lengthened Confirmed by MD SMITH ALAN ([id number]) on 01/11/2018 3:14:22 PM Specimen Anatomical Collection Method Collection Time Receive d Time (Source) Location / / Volume Laterality 01/10/2018 10:43 01/11/2018 3:14 PM EDT PM EDT Sylvia Olvera MD ECG ORDERABLES Performing Organization Address City/[facility]/ZIP [facility] Phon e Number MUSE SYSTEM Film Library- Storage Only DX Abdomen (01/10/2018 12:05 AM EDT) Specimen (Source) Anatomical Location Collection Method / Collectio n Time Received Time / Laterality Volume Narrative [facility] - 01/11/2018 12:14 AM EDT This exam is for storage only and is aut o-finalizing. Sylvia Olvera MD IMG FILM LIBRARY ORDERABLES Performing Organization Address [facility] Phon e Number [place], [place] Film Library- Storage Only CT Abdomen & Pelvis (01/10/2018 12:00 AM EDT) Specimen (Source) Anatomical Location Collection Method / Collectio n Time Received Time / Laterality Volume [facility] RAD - 01/11/2018 12:10 AM EDT This exam is for storage only and is aut o-finalizing. Sylvia Olvera MD IMG FILM LIBRARY ORDERABLES Performing Organization Address [facility] Phon e Number RAD [place], [place] Film Library- Storage Only DX Chest (01/09/2018 12:05 AM EDT) Specimen (Source) Anatomical Location Collection Method / Collectio n Time Received Time / [facility] 12[facility]14 AM EDT This exam is for storage only and is aut o-finalizing. Sylvia Olvera MD IMG FILM LIBRARY ORDERABLES Performing Organization Address [facility] Phon e Number [place], [place] Film Library- Storage Only DX Abdomen (01/09/2018 12:00 AM EDT) Specimen (Source) Anatomical Location Collection Method / Collectio n Time Received Time / Laterality Volume Narrative RAD - 01/11/2018 12:13 AM EDT This exam is for storage only and is aut o-finalizing. Sylvia Olvera MD IMG FILM LIBRARY ORDERABLES Performing Organization Address City/State/ZIP Code Phon e Number GIGI GIGI [place], [place] documented in this encounter Visit Diagnoses Diagnosis Abdominal pain, unspecified abdominal lo cation documented in this encounter Admitting Diagnoses Diagnosis Abdominal pain Abdominal pain, unspecified site documented in this encounter Administered Medications Inactive Administered Medications - up to 3 most recent administrations Medication Order MAR Action Action Date Dose Rate Site acetaminophen (TYLENOL) tablet 650 Given 01/12/2018 6:51 AM EDT 650 mg mg 650 mg, Oral, EVERY 4 HOURS PRN, Starting on 01/11/18 at 0834, Until 01/13/18 at 1459, Pain, Maximum dose of acetaminophen is 4000 mg from all sources in 24 hours., Routine Given 01/12/2018 1:41 AM EDT 650 mg Given 01/11/2018 5:42 PM EDT 650 mg albuterol (PROVENTIL) nebulizer solution 2.5 mg 2.5 mg, Nebulization, EVERY 6 HOURS PRN, Starting on 01/12/18 at 0933, Until 01/13/18 at 1459, Wheezing, Routine amLODIPine (NORVASC) tablet 10 mg Given 01/13/2018 8:37 AM EDT 10 mg 10 mg, Oral, DAILY, First dose on 01/11/18 at 0900, Until Discontinued, Routine Given 01/12/2018 10:02 AM EDT 10 mg Given 01/11/2018 8:16 AM EDT 10 mg amoxicillin-clavulanate (AUGMENTIN) 875-125 Given 01/04 8:37 AM EDT 1 tablet mg per tablet 1 tablet 1 tablet, Oral, 2 TIMES DAILY, 20 doses, First dose on 01/13/18 at 0900, Last dose on Sat01/22/18 at 2100, Routine budesonide-formoterol (SYMBICORT) Given 01/13/2018 8:38 AM EDT 2 Inhalation 160-4.5 mcg/actuation inhaler 2 Inhalation 2 Inhalation, Inhalation, 2 TIMES DAILY, First dose on 01/12/18 at 1100, Until Discontinued, Routine Given 01/12/2018 8:53 PM EDT 2 Inhalation Given 01/12/2018 10:04 AM EDT 2 Inhalation buPROPion (WELLBUTRIN SR or ZYBAN) SR tablet Given 02/2018 8:37 AM EDT 150 mg 150 mg 150 mg, Oral, DAILY, First dose on 01/11/18 at 0900, Until Discontinued, DO NOT CRUSH OR OPEN, Routine Given 01/12/2018 10:03 AM EDT 150 mg Given 01/11/2018 9:09 AM EDT 150 mg citalopram (CeleXA) tablet 40 mg Given 01/12/2018 8:53 PM EDT 40 mg 40 mg, Oral, NIGHTLY, First dose on 01/11/18 at 2100, Until Discontinued, Routine Given 01/11/2018 8:26 PM EDT 40 mg enoxaparin (LOVENOX) injection 40 mg Given 01/12/2018 8:52 PM EDT 40 mg 40 mg, Subcutaneous, NIGHTLY, First dose on 01/12/18 at 2100, Until Discontinued, Routine lactated Ringers infusion 1,000 New Bag 01/12/2018 1:41 AM EDT 1,000 mLs 100 mL/hr mL 1,000 mL, at 100 mL/hr, Intravenous, CONTINUOUS, Starting on 01/11/18 at 0515, Until 01/12/18 at 1104 New Bag 01/11/2018 3:10 PM EDT 1,000 mLs 100 mL/hr New Bag 01/11/2018 5:14 AM EDT 1,000 mLs 100 mL/hr levothyroxine (SYNTHROID) tablet 75 mcg Given 01/13/2018 8:37 AM EDT 75 mcg 75 mcg, Oral, DAILY, First dose on 01/11/18 at 0900, Until Discontinued, Routine Given 01/12/2018 10:02 AM EDT 75 mcg Given 01/11/2018 8:16 AM EDT 75 mcg magnesium oxide (MAG-OX) tablet 400 mg Given 01/12/2018 8:53 PM EDT 400 mg 400 mg, Oral, 2 TIMES DAILY, 2 doses, First dose on 01/12/18 at 0900, Last dose on 01/12/18 at 2100, Routine Given 01/12/2018 10:02 AM EDT 400 mg ondansetron (ZOFRAN) injection 4-8 mg 4-8 mg, Intravenous, EVERY 8 HOURS PRN, Starting on 01/11/18 at 0455, Until 01/13/18 at 1459, Nausea, Start with 4mg and if ineffective in 30 minutes, give an additional 4mg If multiple antiemetic s are ordered, give ondansetron first. ondansetron (ZOFRAN) tablet 4-8 mg Given 01/11/2018 7:28 PM EDT 4 mg 4-8 mg, Oral, EVERY 8 HOURS PRN, Starting on 01/11/18 at 0455, Until 01/13/18 at 1459, Nausea, Vomiting, If multiple antiemetics are ordered, use ondansetron first. PO Preferred. If patient unable to take PO, may give IV if ordered. Start with 4mg and if ineffective in 45 minutes, give an additional 4mg. If unable to take PO, may give IV., Routine piperacillin-tazobactam (ZOSYN) New Bag 01/13/2018 1:25 AM 3.375 g 12.5 mL/hr 3.375 g vial attach to sodium EDT chloride 0.9% 50 mL Mini-Bag Plus 3.375 g, Intravenous, EVERY 8 HOURS, First dose on 01/11/18 at 1000, Until Discontinued, Administer over 4 Hours, Warning Vesicant/Irritant Medication , Indication for (Active or Suspected): GI/Intra-abdominal New Bag 01/12/2018 6:20 PM EDT 3.375 g 12.5 mL/hr New Bag 01/12/2018 10:02 AM EDT 3.375 g 12.5 mL/hr piperacillin-tazobactam (ZOSYN) 4.5 g New Bag 01/11/2018 1:46 AM EDT 4.5 g 25 mL/hr vial attach to sodium chloride 0.9% 100 mL Mini-Bag Plus 4.5 g, Intravenous, ONCE, 1 dose, On 01/11/18 at 0146, Administer over 4 Hours, Warning Vesicant/Irritant Medication , Indication for (Active or Suspected): GI/Intra-abdominal sodium chloride 0.9 % flush 5 mL Given 01/13/2018 8:38 AM EDT 5 mLs 5 mL, Intravenous, 2 TIMES DAILY, First dose on 01/11/18 at 0900, Until Discontinued, Routine Given 01/12/2018 8:54 PM EDT 5 mLs Given 01/12/2018 10:02 AM EDT 5 mLs sodium chloride 0.9% 1,000 mL IV bolus New Bag 01/11/2018 1:17 AM EDT 2000 mL/hr at 2,000 mL/hr, Intravenous, ONCE, 1 dose, On 01/11/18 at 0117 zolpidem (AMBIEN) tablet 10 mg Given 01/12/2018 8:53 PM EDT 10 mg 10 mg, Oral, NIGHTLY, First dose (after last modification) on 01/12/18 at 2100, Until Discontinued, Routine zolpidem (AMBIEN) tablet 5 mg Given 01/11/2018 8:27 PM EDT 5 mg 5 mg, Oral, NIGHTLY, First dose on 01/11/18 at 2100, Until Discontinued, Routine documented in this encounter Active and Recently Administered Medications Times are shown in EDT. Scheduled Medication Order 01/11/2018 01/12/2018 01/13/2018 amLODIPine (NORVASC) tablet 10 mg 0816 (Given - Provider: Adelso Mir RN) 1002 (Given - Provider: Rachell Prajapati RN) 0837 (Given - Provider: Rhina George RN) 10 mg, Oral, DAILY, First dose on 01/11/18 at 0900, Until Discontinued, Routine amoxicillin-clavulanate (AUGMENTIN) 875-125 mg per tablet 1 tabl et 0837 (Given - Provider: Rhina George RN) 1 tablet, Oral, 2 TIMES DAILY, 20 doses, First dose on 01/13/18 at 0900, Last dose on Sat01/22/18 at 2100, Routine budesonide-formoterol (SYMBICORT) 160-4.5 mcg/actuation inha ler 2 Inhalation 1004 (Given - Provider: Rachell Prajapati RN)2053 (Given - Provider: Dennise Moffett RN) 0838 (Given - Provider: Rhina Escobar RN) 2 Inhalation, Inhalation, 2 TIMES DAILY, First dose on 01/12/18 at 1100, Until Discontinued, Routine buPROPion (WELLBUTRIN SR or ZYBAN) SR tablet 150 mg 01 12 (Given - Provider: Patricia Mir RN) 1003 (Given - Provider: Rachell Prajapati RN) 0837 (Given - Provider: Rhina George, DELROY) 150 mg, Oral, DAILY, First dose on Sat at 0900, Until Discontinued, DO NOT CRUSH OR OPEN, Routine citalopram (CeleXA) tablet 40 mg 2025 (Given - Provider: Belgica Moffett RN) 2052 (Given - Provider: Dennise Moffett RN) 40 mg, Oral, NIGHTLY, First dose on 01/11/18 at 2100, Until Discontinued, Routine enoxaparin (LOVENOX) injection 40 mg (Given - Provider: Dennise Moffett RN) 40 mg, Subcutaneous, NIGHTLY, First dose on 01/12/18 at 2100, Until Discontinued, Routine levothyroxine (SYNTHROID) tablet 75 mcg 08 (Given - Provider: Patricia Mir RN) 1002 (Given - Provider: Rachell Prajapati RN) 0837 (Given - Provider: Rhina George RN) 75 mcg, Oral, DAILY, First dose on Sat at 0900, Until Discontinued, Routine magnesium oxide (MAG-OX) tablet 400 mg (COMPLETED) 1002 (Given - Provider: Rachell Prajapati RN)2052 (Given - Provider: Dennise Moffett RN) 400 mg, Oral, 2 TIMES DAILY, 2 doses, Fi rst dose on 01/12/18 at 0900, Last dose on 01/12/18 at 2100, Routine piperacillin-tazobactam (ZOSYN) 3.375 g vial attach to sodium chloride 0.9% 50 mL Mini-Bag Plus (CANCELED) 1011 (New Bag - Provider: Patricia funk RN)1411 (Stopped - Provider: Patricia Mir RN)1745 (New Bag - Provider: Patricia E Hewes, RN)2145 (Stopped - Provider: Dennise Moffett RN) 0136 (New Bag - Provider: Dennise Moffett RN)0536 (Stopped - Provider: Dennise Moffett RN)1002 (New Bag - Provider: Rachell Prajapati RN)1402 (Stopped - Provider: Rachell Prajapati, DELROY)1820 (New Bag - Provider: Rachell Prajapati, DELROY) 0125 (New Bag - Provider: Dennise Moffett RN)0525 (Due: Stopped - Provider: Dennise Moffett RN) 3.375 g, Intravenous, EVERY 8 HOURS, Fir st dose on 01/11/18 at 1000, Until Discontinued, Administer over 4 Hours, Warning Vesicant/Irritant Medication , Indication for (Active or Suspected): GI/Intra-abdominal 2219 (Stopped - Provider: Dennise Moffett RN) piperacillin-tazobactam (ZOSYN) 4.5 g vi al attach to sodium chloride 0.9% 100 mL Mini-Bag Plus (COMPLETED) 0146 (New Bag - Provider: Molly Mari i, RN)0546 (Stopped - Provider: Myriam Murcia RN) 4.5 g, Intravenous, ONCE, 1 dose, 01/11/18 at 0146, Administer over 4 Hours, Warning Vesicant/Irritant Medication , Indication for (Active or Suspected): GI/Intra-abdominal sodium chloride 0.9 % flush 5 mL 0816 (Not Given - Pro vider: Patricia Mir RN - Reason: See comment - Comment: IVF infusing without s/s infiltration)2025 (Given - Provider: Dennise Moffett RN) 1002 (Given - Provider: Rachell Prajapati RN)2054 (Given - Provider: Dennise Moffett RN) 0838 (Given - Provider: Rhina George RN) 5 mL, Intravenous, 2 TIMES DAILY, First dose on 01/11/18 at 0900, Until Discontinued, Routine sodium chloride 0.9% 1,000 mL IV bolus (COMPLETED) 011 7 (New Bag - Provider: Molly Coates RN)0230 (Stopped - Provider: Molly Coates, DELROY) at 2,000 mL/hr, Intravenous, ONCE, 1 dose, 01/11/18 at 0117 zolpidem (AMBIEN) tablet 10 mg 2052 (Given - Pro vider: Dennise Moffett, DELROY) 10 mg, Oral, NIGHTLY, First dose on 01/12/18 at 2100, Until Discontinued, Routine zolpidem (AMBIEN) tablet 5 mg (CANCELED) 2026 (Given - Provider: Dennise Moffett, DELROY) 5 mg, Oral, NIGHTLY, First dose on Sat at 2100, Until Discontinued, Routine Continuous Medication Order 01/11/2018 01/12/2018 01/13/2018 lactated Ringers infusion 1,000 mL (CANCELED) 0514 (Ne w Bag - Provider: Myriam Murcia RN)1510 (New Bag - Provider: Patricia Mir RN) 0141 (New Bag - Provider: Dennise Moffett RN) 1,000 mL, at 100 mL/hr, Intravenous, CON TINUOUS, Starting 01/11/18 at 0515, Until 01/12/18 at 1104 PRN Medication Order 01/11/2018 01/12/2018 01/13/2018 acetaminophen (TYLENOL) tablet 650 mg 0909 (Given - Pr ovider: Patricia Mir RN)1258 (Given - Provider: Patricia Mir, DELROY)1742 (Given - Provider: Patricia Mir, DELROY) 0141 (Given - Provider: Dennise Moffett , DELROY)0651 (Given - Provider: Dennise Moffett, DELROY) 650 mg, Oral, EVERY 4 HOURS PRN, Startin g 01/11/18 at 0834, Until 01/13/18 at 1459, Pain, Maximum dose of acetaminophen is 4000 mg from all sources in 24 hours., Routine albuterol (PROVENTIL) nebulizer solution 2.5 mg 2.5 mg, Nebulization, EVERY 6 HOURS PRN, Starting 01/12/18 at 0933, Until 01/13/18 at 1459, Wheezing, Routine lidocaine (XYLOCAINE) 10 mg/mL (1 %) injection 3 mg 3 mg (0.3 mL), Subcutaneous, ONCE PRN, 1 dose, Starting 01/11/18 at 0455, Until 01/13/18 at 1459, for discomfort with PIV insertion, Routine ondansetron (ZOFRAN) injection 4-8 mg(Linked Group 1) 192 (See Alternative - Provider: Dennise Moffett, RN) 4-8 mg, Intravenous, EVERY 8 HOURS PRN, Starting 01/11/18 at 0455, Until 01/13/18 at 1459, Nausea, Start with 4mg and if ineffective in 30 minutes, give an additional 4mg If multiple antiemetics are ordered, give ondansetron first. ondansetron (ZOFRAN) tablet 4-8 mg(Linked Group 1) 192 (Given - Provider: Dennise Moffett, DELROY) 4-8 mg, Oral, EVERY 8 HOURS PRN, Startin g 01/11/18 at 0455, Until 01/13/18 at 1459, Nausea, Vomiting, If multiple antiemetics are ordered, use ondansetron first. PO Preferred. If patient unable to take PO, may give IV if ordered. Sta rt with 4mg and if ineffective in 45 minutes, give an additional 4mg. If unable to take PO, may give IV., Routine sodium chloride 0.9 % flush 5-20 mL 5-20 mL, Intravenous, EVERY 1 MIN PRN, S tarting 01/11/18 at 0455, Until 01/13/18 at 1459, flush, Flush pertains to all indwelling lines. Flush per protocol found in the job aid using the link provided on this medication record., Routine Linked Groups Order Group 1: ondansetron (ZOFRAN) tablet 4-8 mgJump to med 4-8 mg, Oral, EVERY 8 HOURS PRN, Startin g 01/11/18 at 0455, Until 01/13/18 at 1459, Nausea, Vomiting
If multiple antiemetics are ordered, use ondansetron first. PO Preferred. If patient unable to take PO, may give IV if ordered. Start with 4mg and if ineffective in 45 minutes, give an additional 4mg. If unable to take PO, may give IV.
Routine Or ondansetron (ZOFRAN) injection 4-8 mgJump to med 4-8 mg, Intravenous, EVERY 8 HOURS PRN, Starting 01/11/18 at 0455, Until 01/13/18 at 1459, Nausea
Start with 4mg and if ineffective in 30 minutes, give an additional 4mg If mul tiple antiemetics are ordered, give onda nsetron first.
documented in this encounter Care Teams Camera Engineer Relationship Specialty Start Date End Date Leeanne Schultz MD PCP - General 10/28/13 [address] [place] [address] documented as of this encounter
--- OUTSIDE RECORDS SUMMARY | 2021-11-23 01:53 | XMS_ITS | Encounter Summary ---
:1945 Author Organization [facility] [place] [address] Care Team Providers Name Role Phone Leeanne Schultz MD Primary Care Provider Reason for Visit Reason Comments Skin Check Encounter Details Date Type Department Care Team Description 04/22/2015 Office Visit Dermatology at [facility] in lesion (Primary Dx); [place] PETER History of basal cell cancer; [address] [facility] [place] [address] [facility] [place], [place] [address] Social History Tobacco Use Types Packs/Day Years Used Date Former Smoker Smokeless Tobacco: Never Used Alcohol Use Standard Drinks/Week Comments Yes 7 (1 standard drink = 0.6 oz pure alcoho l) Sex Assigned at Date Recorded Female 10/02/2020 6:58 PM EDT documented as of this encounter Progress Notes Melani Snyder - 04/26/2015 3:34 PM EST Quick Note: -spoke to patient regarding biopsy results. She requested a refill on Retina-A 0.025% Ni Zamudio MD - 04/22/2015 1:07 PM EST Images from the original note were not included. DERMATOLOGY ESTABLISHED PATIENT CLINIC NOTE Date of service: 04/22/2015 Leeanne Bush : 1945 Provider: Ni Zamudio MD Chief Complaint Patient presents with ??? Skin Check SKIN HISTORY: - She has family history of melanoma in her brother. 2. Melanoma.left lateral cheek in 08/1999, with negative [...] , Excised 7. She grew up in [place] with a history of extensive sun exposure. [...] specimen. 16. 03/04/13- DF. unit or cyst. 17.07/17/2014, MIS, left upper arm, WLE 18. 2014, MIS, right forearm, WLE . 2014, severely atypical intraepidermal melanocytic proliferation arising in a nevus, excised 20.10/15/2014-left lateral arm, shave biopsy:- Malignant melanoma, predominantly melanoma in situ with focal invasion to the depth of 0.25 mm (see template) excised 11/19/2014 HPI Leeanne Bush is a 69 y.o. year old female. Presents to clinic today for a full skin exam. She waslast seen by me on 10/15/2014. Patient has a history of seborrheic dermatitis around her nose resolved with OTC hydrocortisone. Patient states that she monitors her skin and has not noticed any areas of concern. Patient states that she recently had a PT scan (negative) and MRI per oncologist. She states that she still is experiencing numbness. 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 Patient states that she had 3 melanomas treated in [place] including her left and right thighs. ADR: Allergies Allergen Reactions ??? Shellfish Derived Hives and Other (See Comments) Tongue swelling too ??? Morphine Sulfate Unknown- during surgery states not life threatening. Heart felt like it was going to burst states. ??? Nitrofurantoin Monohyd/M-Cryst Nausea And Vomiting MEDS: Current Outpatient Prescriptions Medication Sig Dispense Refill ??? clonazePAM (KLONOPIN) 1 mg tablet ??? tretinoin (RETIN-A) 0.025 % cream Apply topically to affected areas on the face at night. 45 g PRN ??? amlodipine (NORVASC) 10 mg tablet Take [...] No current facility-administered medications for this visit. ROS General: feeling well Skin: denies other skin complaints General: Denies fever, chills, nightsweats. No recent weight changes Eyes: Denies pain, vision changes ENT: Denies vertigo, hearing changes, epistaxis, mouth pain or lesions Cardiovascular: Denies chest pain, pressure or palpitations Respiratory: Denies SOB, orthopnea, cough GI: Denies dysphagia, abd pain, GERD Sx, N/V/C/D, black or bloody stool : Denies dysuria, hesitation, normal menstrual cycle Musculoskeletal: Denies arthralgia, myalgia Neuro: Denies numbness or tingling, weakness Hem/Lymph: Denies new lumps or bumps Skin: Denies rash or concerning lesions. Denies new or changing moles. EXAM General: NAD, pleasant, cooperative Skin: A total body skin exam except for areas covered by underwear was performed. This includes examination of the skin of the face, ears, neck, chest, axillae, left and right upper and lower extremities, hands and feet, abdomen, and except the areas covered by underwear were not examined. No lymphadenopathy, including the preauricular, submandibular, supraclavicular, cervical, areas. Melanoma excision site scar was examined and palpated. There was no increase in pigmentation or induration at this site. Significant skin findings: A. Right medial thigh: 0.5 cm pink/brown irregularly pigmented macule Verbal consent was given today to obtain and chart today's photo(s). B. Right medial le.5 cm pink/brown irregularly pigmented macule Verbal consent was given today to obtain and chart today's photo(s). C. Left medial le.0 x 0.5 pink/brown irregularly pigmented macule Verbal consent was given today to obtain and chart today's photo(s). D. Scars at above sites, NER E. Trunk and extremities including the face, right inner thigh: Multiple, medium-brown, evenly-pigmented macules and papules. All with regular pigment pattern on dermoscopy. No pigmented lesions suspicious for melanoma. ASSESSMENT/PLAN: A. Nevus R/O Atypia Procedure: Shave removal of lesion. Location: right medial thigh Discussed indications for procedure and expectations including risks and benefits. Verbal consent obtained. Skin prep with alcohol. Local anesthesia with 1% xylocaine, 1/100,000 epinephrine, 0.1 mEq/mLbicarbonate. The lesion was removed by shave technique to the level of the dermis and submitted to Pa thology. Hemostasis obtained. (AlCl and/or electrocautery). There were no complications; the pt. tolerated the procedure well. The wound was dressed. Post-procedure expectations, wound care and activity restrictions were reviewed. Final diameter: 0.8 cm Follow-up based on pathology results. B. Nevus R/O Atypia Procedure: Shave removal of lesion. Location: right medial leg Discussed indications for procedure and expectations including risks and benefits. Verbal consent obtained. Skin prep with alcohol. Local anesthesia with 1% xylocaine, 1/100,000 epinephrine, 0.1 mEq/mLbicarbonate. The lesion was removed by shave technique to the level of the dermis and submitted to Pa thology. Hemostasis obtained. (AlCl and/or electrocautery). There were no complications; the pt. tolerated the procedure well. The wound was dressed. Post-procedure expectations, wound care and activity restrictions were reviewed. Final diameter: 0.5 cm Follow-up based on pathology results. C. Seborrheic keratosis R/O Atypical melanocytic lesion Procedure: Skin biopsy by shave technique Location: Left medial leg Discussed indications for procedure and expectations including risks and benefits. Verbal consent obtained. Skin prep with alcohol. Local anesthesia with 1% xylocaine, 1/100,000 epinephrine, 0.1 mEq/mLbicarbonate. A sample of the lesion was removed by shave technique to the level of the dermis and submitted to Pathology. Hemostasis obtained (AlCl and/or electrocautery). There were no complications; the pt. tolerated the procedure well. The wound was dressed. Post-procedure expectations, wound care and activity restrictions were reviewed. Follow-up based on pathology results. D. H/o multiple melanomas and skin cancer. NER. E. Benign appearing nevi with even pigmentation and well defined margins are noted. -Patient reassured ?? The nature of sun-induced photo-aging and skin cancers is discussed. Sun avoidance, protective clothing, and the use of 30-SPF sunscreens is advised. Observe closely for skin damage/changes, and call if such occurs. Follow up: Return to clinic in 3 months for melanoma exam, or sooner if needed. Patient scheduled upon exiting. Patient instructed to call with questions or concerns. I am documenting this encounter acting as the scribe for and in the presence of Dr. Zamudio.: Dipti Emerson, Clinical Scribe I performed the above scribed service and agree with the accuracy of the documentation in this encounter. Ni Zamudio MD Section of Dermatology [facility] documented in this encounter Plan of Treatment Upcoming Encounters Date Type Specialty Care Team Description 03/14/2022 Office Visit Dermatology [place] Edgar MD [facility] [address] [place], [place] [address] (Wo rk) documented as of this encounter Procedures Procedure Name Priority Date/Time Associated Diagnosis Comme nts SPECIMEN TO Routine 04/22/2015 5:06 PM Skin lesion Results f or this PATHOLOGY (NON-OR) EST procedure are in the results section. SURGICAL PATHOLOGY Routine 04/22/2015 5:06 PM Res ults for this REPORT EST procedure are i n the results section. documented in this encounter Results Surgical Pathology Report (04/22/2015 5:06 PM EST) [facility] Method Time Signature Surgical [id number] ?Location: [facility] Pathology [facility] Report The signing pathologist has (i) examined the relevant preparation(s) for the specimen(s) and (ii) rendered or confirmed the diagnosis(es) . . ?Surgic al Pathology DIAGNOSIS A - Skin, right medial thigh, shave removal: - TRAUMATIZED COMPOUND MELAN OCYTIC NEVUS, PRESENT AT THE PERIPHERAL EDGES AND BASE OF THE SPECIMEN B - Skin, right medial leg, shave removal: - MILDLY DYSPLASTIC COMPOUND MELANOCYTIC NEVUS, NARROWLY EXCISED ON THE PLANE OF SECTION EXAMINED C - Skin, left medial leg, shave biopsy: - PIGMENTED SEBORRHEIC KERATOSIS 04/25/15 BJM 04/25/15 Verified by: ? Enrique PETER, Sacha Hollins ?Dermatopathologist ?(Electronic Signature ) The attending pathologist whose signature appears on this re port has reviewed all diagnostic slides and has edited the gross and/ or microscopic portion of the report in gelacio dering the final pathologic diagnosis. CLINICAL INFORMATION Specimen Submitted: A - Skin, right medial thigh, shave removal (1) B - Skin, right medial leg, shave removal (1) C - Skin, left medial leg, shave biopsy (1) Clinical History: A - 0.5 cm pink/brown irregularly pigmented macule B - 0.5 cm pink/brown irregularly pigmented macule C - 1.0 x 0.5 pink/brown irregularly pigmented macule Clinical Diagnosis: A - Nevus, rule out atypia B - Nevus, rule out atypia C - SK, rule out atypical melanocytic lesion SPECIMEN PROCESSING A - Labeled/Fixative: A-right medial thigh, formalin. Quantity/Size: Single, 0.7 x 0.5 x 0.1 cm. Tissue Description: Irregular shave of callahan skin. Sections/Processing: Inked and trisected. (T1) B - Labeled/Fixative: B-right medial leg, formalin. Quantity/Size: Single, 0.5 x 0.4 x 0.1 cm. Tissue Description: Shave of callahan-yellow callahan-brown skin. Sections/Processing: Bisected. (T1) C - Labeled/Fixative: C-left medial leg, formalin. Quantity/Size: Single, 1.1 x 0.6 x 0.1 cm. Tissue Description: Irregular shave of callahan-white skin. Sections/Processing: Inked and quadrisected. (T1) ??ejr Specimen (Source) Anatomical Collection Method Collection Time Re ceived Time Location / / Volume Laterality 04/22/2015 5:06 PM EST Ni Zamudio MD PATHOLOGY/CYTOLOGY ORDERABLE S Performing Organization Address City/State/[place] [address] [facility] Specimen to Pathology (NON-OR) (04/22/2015 5:06 PM EST) Specimen Anatomical Collection Method Collection Time Receive d Time (Source) Location / / Volume Laterality AP Specimen 04/22/2015 5:06 PM 5 6:17 EST PM EST Narrative GUILLERMINA WILKS - 04/22/2015 6:[address] Specimen requisition ordered. ??Separate Pathology report to follow Resulting Agency Comment Spec In Lab Ni Zamudio MD PATHOLOGY/CYTOLOGY ORDERABLE S Performing Organization Address City/State/[place] [address] GUILLERMINA WILKS documented in this encounter Visit Diagnoses Diagnosis Skin lesion - Primary Unspecified disorder of skin and subcuta neous tissue History of basal cell cancer Personal history of other malignant neop lasm of skin History of melanoma Personal history of malignant melanoma o f skin documented in this encounter Care Teams Pump Operator Byproducts Relationship Specialty Start Date End Date Leeanne Schultz MD PCP - General 10/28/13 [address] [place] [address] documented as of this encounter
--- OUTSIDE RECORDS SUMMARY | 2021-11-23 01:53 | XMS_ITS | Encounter Summary ---
:1945 Author Organization [facility] [place] [address] Care Team Providers Name Role Phone Leeanne Schultz MD Primary Care Provider Reason for Referral Consultation (Routine) - Closed Specialty Diagnoses / Procedures Referred By Contact Refer red To Contact Hematology and Oncology Diagnoses History of melanoma Ni Zamudio MD Shirai, Keisuke, MD [facility] [address] HEMATOLOGY/[address] [place] [address] [place] [address] Fax: Referral ID Status Reason Start Date Expiration Date Visits V isits Requested Authorized [id number] Closed Consult, 01/20/2015 01/20/2016 3 3 Test & Treat Reason for Visit Reason Comments Skin Check Encounter Details Date Type Department Care Team Description 01/19/2015 Follow-Up Dermatology at [place] [facility] MD History of melanoma [facility] [address] [place] [address] [phone]OLOGY [place] [id number] (Wo rk) Social History Tobacco Use Types Packs/Day Years Used Date Former Smoker Smokeless Tobacco: Never Used Alcohol Use Standard Drinks/Week Comments Yes 7 (1 standard drink = 0.6 oz pure alcoho l) Sex Assigned at Date Recorded Female 10/02/2020 6:58 PM EDT documented as of this encounter Progress Notes Ni Zamudio MD - 01/19/2015 3:50 PM EDT DERMATOLOGY ESTABLISHED PATIENT CLINIC NOTE Date of service: 01/19/2015 Leeanne Bush : 1945 Provider: Ni Zamudio [...] back. ? August 2007, MIS treated in [place] ? Right lateral thigh. 6. 10/2006 Right lower back, mild to moderate DN , Excised 7. She grew up in [place] with a history of extensive sun exposure. [...] WLE 18. 2014, MIS, right forearm, WLE 19. 2014, severely atypical [...] She waslast seen by me on 10/15/2014. She has an itchy spot located near the left nostril, wonders if its eczema. Had the same thing on the right side; it resolved, now is similar on the left side. She is using retin-A on her face. A couple of raised slightly darker spots located on the right malar cheek. Lesions are asymptomatic;patient denies associated pruritus, burning sensation, tenderness, pain, or spontaneous bleeding. Patient comments she has been experiencing tingling on the lateral neck several times daily for 30-40 seconds at a time. This has been going on for about 6 weeks. The affected area begins at the top ofher left ear and extends to her central neck. It involved the area of her skin graft from MM excisedand SLNB done in 1999. Initially, she thought it might be shingles. She received the shingles injection 6 years ago. Denies pain or tenderness. ADR: Allergies Allergen Reactions ??? Shellfish Derived Hives and Other (See Comments) Tongue swelling too ??? Morphine Sulfate Unknown- during surgery states not life threatening. Heart felt like it was going to burst states. ??? Nitrofurantoin Monohyd/M-Cryst Nausea And Vomiting MEDS: Current Outpatient Prescriptions Medication Sig Dispense Refill ??? fluoruracil (CARAC) 0.5 % Cream Apply to the affected area on left cheek and right upper lip daily for 3 weeks 30 g 0 ??? CELEBREX 200 mg capsule Take 200 mg by mouth as needed. ??? clonazePAM (KLONOPIN) 1 mg tablet ??? [...] changing moles. EXAM General: NAD, pleasant, cooperative Skin:A total body skin exam except for areas [...] at this site. Significant skin findings: A. Trunk and extremities including the face, right inner thigh: Multiple, medium-brown, evenly-pigmented macules and papules. All with regular pigment pattern on dermoscopy. No pigmented lesions suspicious for melanoma. B. Dysesthesia left preauricular area from ear to central neck, over the melanoma scar. No clinical evidence of recurrent melanoma. C. Left nasolabial fold: Mild erythema D. Trunk and extremities, left bicep, right dorsal hand: 0.4 cm pink-brown plaque with waxy stuck onappearance. E. Scars at above sites, NER ASSESSMENT/PLAN: A. Benign appearing nevi with even pigmentation and well defined margins are noted. -Patient reassured B. Dysesthesia -Refer to medical oncology, Dr. Shaun Shaffer for evalulation ? PET (Patient instructed to make sure that an appointment is made within 2 weeks or to call us back) C. Seborrheic dermatitis vs irritation from Retin-A -OTC Hydrocortisone, PRN D. Seborrheic keratosis -Discussed benign nature of lesion and provided reassurance. No treatment necessary at this time. E. H/o multiple melanomas and skin cancer. NER. Will refer to oncology for evaluation of dysethesia near melanoma site on left side of face/neck. ?? The nature of sun-induced photo-aging and [...] encounter. Ni Zamudio MD Section of Dermatology [facility] documented in this encounter Plan of Treatment Upcoming Encounters Date Type Specialty Care Team Description 03/14/2022 Office Visit Dermatology [place] Edgar MD [facility] [address] [place], [place] [address] (Wo rk) Scheduled Referrals Name Type Priority Associated Order Schedule Diagnoses Referral to Outpatient Referral Routine History of melanoma O rdered: Hematology and 01/20/2015 Oncology documented as of this encounter Visit Diagnoses Diagnosis History of melanoma Personal history of malignant melanoma o f skin documented in this encounter Care Teams Research Program Manager Relationship Specialty Start Date End Date Leeanne Schultz MD PCP - General 10/28/13 [address] [place] [address] documented as of this encounter
--- OUTSIDE RECORDS SUMMARY | 2021-11-23 01:53 | XMS_ITS | Encounter Summary ---
:1945 Author Organization [facility] [place] [address] Care Team Providers Name Role Phone Leeanne Schultz MD Primary Care Provider Encounter Details Date Type Department Care Team Description 01/09/2018 Hospital Encounter [place] [address] Social History Tobacco Use Types Packs/Day Years Used Date Former Smoker Smokeless Tobacco: Never Used Alcohol Use Standard Drinks/Week Comments Yes 7 (1 standard drink = 0.6 oz pure alcoho l) Sex Assigned at Date Recorded Female 10/02/2020 6:58 PM EDT documented as of this encounter Medications at Time of Discharge Medication Sig Dispensed Refills Start Date End Date scopolamine Place 1 patch onto 6 patch [...] mg by mouth 0 09/03 tablet nightly. ciprofloxacin (CIPRO) 500 Take 1 tablet by 6 tablet 0 12/0401/13/2018 mg TabletIndications: mouth 2 times daily. Counseling about travel Take twice a day for fever with diarrhea. minocycline Take 50 mg by mouth 0 12/04 (MINOCIN;DYNACIN) 50 mg 2 times daily. Capsule tretinoin (RETIN-A) 0.025 Apply topically to 45 g 0 11/21/2018 % CreamIndications: Skin affected areas on lesion the face at night. Estradiol 0.1 mg/[address] 1 patch onto 0 12/16/2020 PTWK the skin once a week. documented as of this encounter Plan of Treatment Upcoming Encounters Date Type Specialty Care Team Description 03/14/2022 Office Visit Dermatology [place] Edgar MD [facility] [address] [place], [place] [address] (Wo rk) documented as of this encounter Procedures Procedure Name Priority Date/Time Associated Diagnosis Comme nts FILM LIBRARY STAT 01/09/2018 12:05 AM Results for this STORAGE ONLY DX EDT procedure ar e in CHEST the results section. documented in this encounter Results Film Library- Storage Only DX Chest (01/09/2018 12:05 AM EDT) Specimen (Source) Anatomical Location Collection Method / Collectio n Time Received Time / Laterality Volume Narrative RAD - 01/11/2018 12:14 AM EDT This exam is for storage only and is aut o-finalizing. Sylvia Olvera MD IMG FILM LIBRARY ORDERABLES Performing Organization Address City/State/ZIP Code Phon e Number [place], [place] documented in this encounter Visit Diagnoses Not on filedocumented in this encounter Care Teams Staff Software Engineer Relationship Specialty Start Date End Date Leeanne Schultz MD PCP - General 10/28/13 [address] [place] [address] documented as of this encounter
--- OUTSIDE RECORDS SUMMARY | 2021-11-23 01:53 | XMS_ITS | Encounter Summary ---
:1945 Author Organization [facility] [address] Care Team Providers Name Role Phone Leeanne Schultz MD Primary Care Provider Encounter Details Date Type Department Care Team Description 01/21/2015 Telephone Dermatology at [facility] Ni Zamudio MD [address] [place] [address] [address] [phone] [place], [place] [address] (Wo rk) Social History Tobacco Use Types Packs/Day Years Used Date Former Smoker Smokeless Tobacco: Never Used Alcohol Use Standard Drinks/Week Comments Yes 7 (1 standard drink = 0.6 oz pure alcoho l) Sex Assigned at Date Recorded Female 10/02/2020 6:58 PM EDT documented as of this encounter Miscellaneous Notes Telephone Encounter - Melani Snyder - 05/13/2015 1:46 PM EST . documented in this encounter Plan of Treatment Upcoming Encounters Date Type Specialty Care Team Description 03/14/2022 Office Visit Dermatology [place] Edgar MD [facility] [address], [place] [address] (Wo rk) documented as of this encounter Visit Diagnoses Diagnosis Family history of melanoma Family history of other specified malign ant neoplasm documented in this encounter Care Teams Pre Sales Architect Relationship Specialty Start Date End Date Leeanne Schultz MD PCP - General 10/28/13 [address] [place] [address] documented as of this encounter
--- OUTSIDE RECORDS SUMMARY | 2021-11-23 01:53 | XMS_ITS | Encounter Summary ---
:1945 [place] [address] Care Team Providers Name Role Phone Leeanne Schultz MD Primary Care Provider Encounter Details Date Type Department Care Team Description 01/25/2015 Orders Only Hematology and Oncology Evy Gramajo MD Melanoma; at [facility] DR Babcock fatigue [facility] Kwasi fernández HEMATOLOGY/[place] [address] DEPT [phone] [place], [place] [address] (Wo rk) Social History Tobacco Use Types Packs/Day Years Used Date Former Smoker Smokeless Tobacco: Never Used Alcohol Use Standard Drinks/Week Comments Yes 7 (1 standard drink = 0.6 oz pure alcoho l) Sex Assigned at Date Recorded Female 10/02/2020 6:58 PM EDT documented as of this encounter Plan of Treatment Upcoming Encounters Date Type Specialty Care Team Description 03/14/2022 Office Visit Dermatology [place] Edgar MD [facility] DR DIANA CANAS-DERMAT [place], [place] [address] (Wo rk) documented as of this encounter Results T4, free (02/04/2015 12:49 PM EDT) athologist Signature Free T4 1.09 0.93 - 1.70 CERNER ng/dL MILLENNIUM Specimen Anatomical Collection Method Collection Time Receive d Time (Source) Location / / Volume Laterality Blood specimen 02/04/2015 12:49 5 1:11 (specimen) PM EDT PM EDT Resulting Agency Comment Spec In Lab Evy Gramajo MD CHEMISTRY ORDERABLES Performing Organization Address City/[facility]/ZIP Code Phon e Number [address] CERNER MILLENNIUM (ABNORMAL) TSH (02/04/2015 12:49 PM EDT) P athologist Signature TSH 5.04 (H) 0.27 - 4.20 CERNER mcIU/mL MILLENNIUM Specimen Anatomical Collection Method Collection Time Receive d Time (Source) Location / / Volume Laterality Blood specimen 02/04/2015 12:49 5 1:11 (specimen) PM EDT PM EDT Resulting Agency Comment Spec In Lab Evy Gramajo MD CHEMISTRY ORDERABLES Performing Organization Address City/[facility]/ZIP Code Phon e Number [address] CERNER MILLENNIUM Lactate Dehydrogenase (02/04/2015 12:49 PM EDT) athologist Signature LDH 167 110 - 220 CERNER unit/L MILLENNIUM Specimen Anatomical Collection Method Collection Time Receive d Time (Source) Location / / Volume Laterality Blood specimen 02/04/2015 12:49 5 1:11 (specimen) PM EDT PM EDT Resulting Agency Comment Spec In Lab Evy Gramajo MD CHEMISTRY ORDERABLES Performing Organization Address City/[facility]/ZIP Code Phon e Number [address] CERNER MILLENNIUM (ABNORMAL) Comprehensive metabolic panel (non-fasting) (02/04/2015 12:49 PM EDT) P athologist Signature Glucose Lvl 115 65 - 199 CERNER mg/dL MILLENNIUM Comment: Diabetes: >=200 mg/dL plus symp toms BUN 19 (H) 8 - 18 mg/dL CERNER MILLENNIUM Creatinine 0.85 0.70 - 1.20 mg/dL CERNER MILL ENNIUM Comment: Please note that the pediatric reference intervals supplied above were not validated at [facility]. Results from pediatri c patients should be interpreted in conjunction to the patient's age, height and muscle mass. Sodium 141 135 - 145 mmol/L CERNER ANU NIUM Potassium 4.1 3.5 - 5.0 mmol/L CERNER ANU NIUM Comment: Please note: ??Patients with WBC >100,00 0 may have falsely elevated Potassium levels. ??For accurate Potassium quantif ication in these patients send serum separator tube (gold top) for subsequent determinations. ??Contact the Clinical Chemistry Laboratory if there are any qu estions. Chloride 100 98 - 107 mmol/L CERNER MILLENN IUM CO2 29 22 - 31 mmol/L CERNER MILLENNI UM Anion Gap 12 5 - 15 mmol/L CERNER MILLENNIU M Calcium 9.1 8.5 - 10.5 mg/dL CERNER ANU NIUM Total Protein 7.1 6.1 - 8.0 gm/dL CERNER MIL LENNIUM Albumin 4.6 3.2 - 5.2 gm/dL CERNER MILLENN IUM AST 20 0 - 30 unit/L CERNER MILLENNIU M ALT 14 0 - 30 unit/L CERNER MILLENNIU M Alk Phos 63 40 - 104 unit/L CERNER MILLENN IUM Total Bilirubin 0.3 0.2 - 1.3 mg/dL CERNER M ILLENNIUM Bili, Direct 0.1 0.0 - 0.3 mg/dL CERNER MILL ENNIUM Estimated GFR >60 >=60 CERNER MILLENNIU M Comment: This estimated GFR (eGFR) value was calc ulated using the MDRD equation which has been validated on patients between t he ages of 18 and 70. The MDRD should not be used to assess kidney function in patients < 18 years of age or in patients with extremes of body mass, or in patients with acute kidney failure. This value should be multiplied by 1.2 f or patients. For further information please copy and past e the following links into your internet browser. http://Daixe/DHnkdep http://Daixe/[email or web address] Specimen Anatomical Collection Method Collection Time Receive d Time (Source) Location / / Volume Laterality Blood specimen 02/04/2015 12:49 5 1:11 (specimen) PM EDT PM EDT Resulting Agency Comment Spec In Lab Evy Gramajo MD CHEMISTRY ORDERABLES Performing Organization Address City/State/[place] [address] [facility] documented in this encounter Visit Diagnoses Diagnosis Melanoma Melanoma of skin, site unspecified Chronic fatigue Other malaise and fatigue documented in this encounter Care Teams Loan Reviewer Relationship Specialty Start Date End Date Leeanne Schultz MD PCP - General 10/28/13 [address] [place] [address] documented as of this encounter
--- OUTSIDE RECORDS SUMMARY | 2021-11-23 01:53 | XMS_ITS | Encounter Summary ---
:1945 Author Organization [facility] [place] [address] Care Team Providers Name Role Phone Leeanne Schultz MD Primary Care Provider Encounter Details Date Type Department Care Team Description 10/24/2016 Telephone Dermatology at [facility] Cm Kaminski III, [address] [place] [address] [facility] [phone] [facility] [id number] (Wo rk) Social History Tobacco Use Types Packs/Day Years Used Date Former Smoker Smokeless Tobacco: Never Used Alcohol Use Standard Drinks/Week Comments Yes 7 (1 standard drink = 0.6 oz pure alcoho l) Sex Assigned at Date Recorded Female 10/02/2020 6:58 PM EDT documented as of this encounter Miscellaneous Notes Telephone Encounter - Cm Kaminski III, MD - 10/24/2016 3:35 PM EDT I called the patient and discussed the path report: DIAGNOSIS Skin, right forearm, shave biopsy: - LENTIGO I discussed this benign lesion with the patient . She will call if problems arise as the site heals and we will see her back as planned. Cm Kaminski MD Section of Dermatology [facility] documented in this encounter Plan of Treatment Upcoming Encounters Date Type Specialty Care Team Description 03/14/2022 Office Visit Dermatology [place] Edgar MD [facility] DR DIANA MEDINA-DERMAT [place], [place] [address] (Wo rk) documented as of this encounter Visit Diagnoses Not on filedocumented in this encounter Care Teams Wire Fence Erector Relationship Specialty Start Date End Date Leeanne Schultz MD PCP - General 10/28/13 [address] [place] [address] documented as of this encounter
--- OUTSIDE RECORDS SUMMARY | 2021-11-23 01:53 | XMS_ITS | Encounter Summary ---
:1945 Author Organization [facility] [place] [address] Care Team Providers Name Role Phone Leeanne Schultz MD Primary Care Provider Encounter Details Date Type Department Care Team Description 09/17/2016 Hospital [place] [address] Social History Tobacco Use Types Packs/Day [...] Dermatology [place] Edgar MD [facility] ER DR DIANA CANAS-DERMAT [place] [address] (Wo rk) documented as of this encounter Procedures Procedure Name Priority Date/Time Associated Diagnosis [facility] SURGICAL PATHOLOGY Routine 09/17/2016 5:30 PM Res ults for this REPORT EDT procedure are i n the results section. documented in this encounter Results Surgical Pathology Report (09/17/2016 5:30 PM EDT) Component Value Ref Test Analysis Performed At [facility] Range Method Time Signature Surgical [id number] ?Location: [facility] Pathology SANDY Report The signing pathologist has (i) examined the relevant preparation(s) for the [facility] specimen(s) and (ii) rendered or confirmed the diagnosis(es) . HOSPITAL LABORATORY . ?Surgic al Pathology DIAGNOSIS Skin, right 4th toe, ?? excision: - Digital mucous cyst Electronically signed by: ??Enrique PETER, Sacha Hollins Verified: ??09/20/2016 ?Dermatopathologist DISCUSSION MICROSCOPIC DESCRIPTION The sample shows dermal fibr osis with a small intradermal pool of mucin and altered collagen. Above these iqbal es is an intraepidermal vesicle. In the provided context, the findings support the above diagnosis. CLINICAL INFORMATION Specimen Submitted: A - Cyst right 4th toe Clinical History: None provided Clinical Diagnosis: None provided Referring Identifier: ??[id number] SPECIMEN PROCESSING A. - Labeled/Fixative: Cyst right fourth toe, formalin. Quantity/Size: Single, 1.8 x 0.6 x 0.4 cm. Tissue Description: Wrinkled , white skin ellipse with a central 0.2 cm yellow, domed firm nodular lesion. Sections/Processing : The specimen is inked and serially sec tioned. The ends are submitted in (1); the remainder in (2-3). (T3) ??shb Specimen (Source) Anatomical Collection Method Collection Time Re ceived Time Location / / Volume Laterality 09/17/2016 5:30 PM EDT Resulting Agency Comment Spec In Lab / WKS Billy Orellana DPM PATHOLOGY/CYTOLOGY ORDERAB LES Performing Organization Address City/State/[place] [address] documented in this encounter Visit Diagnoses Not on filedocumented in this encounter Care Teams Material Planning Analyst Relationship Specialty Start Date End Date Leeanne Schultz MD PCP - General 10/28/13 [address] [place] [address] documented as of this encounter
--- OUTSIDE RECORDS SUMMARY | 2021-11-23 01:53 | XMS_ITS | Encounter Summary ---
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, left; [place] [address] DR Family history of melanoma; [phone] [facility] Sebaceous hyper plasia; RD-DERMATOLOGY Seborrheic keratosis; [place], [place] [address] Milia; [phone] Lipoma, unspeci fied site; (Work) EIC (epidermal inclusion cyst) Social History Tobacco Use Types Packs/Day Years Used Date Former Smoker Smokeless Tobacco: Never Used Alcohol Use Standard Drinks/Week Comments Yes 7 (1 standard drink = 0.6 oz pure alcoho l) Sex Assigned at Date Recorded Female 10/02/2020 6:58 PM EDT documented as of this encounter Progress Notes Ni Zamudio MD - 09/06/2015 8:09 AM EDT DERMATOLOGY ESTABLISHED PATIENT CLINIC NOTE Date of service: 09/06/2015 Leeanne Bush : 1945 Provider: Ni Zamudio MD Chief Complaint Patient presents with ??? Follow-up ??? Skin Check SKIN HISTORY: - She [...] back. ? August 2007, MIS treated in [place] ? Right lateral thigh. 6. 10/2006 Right lower back, mild to moderate DN , Excised 7. She grew up in [place] with a history of extensive sun exposure. [...] 0.25 mm (see template) excised 11/19/2014 21. ? Surgical Pathology DIAGNOSIS A - Skin, right medial thigh, shave removal: - TRAUMATIZED COMPOUND MELANOCYTIC NEVUS, PRESENT AT THE PERIPHERAL EDGES AND BASE OF THE ??SPECIMEN B - Skin, right medial leg, shave removal: - MILDLY DYSPLASTIC COMPOUND MELANOCYTIC NEVUS, NARROWLY EXCISED ON THE PLANE OF SECTION ??EXAMINED C - Skin, left medial leg, shave biopsy: - PIGMENTED SEBORRHEIC KERATOSIS HPI Leeanne Bush is a 69 y.o. year old female. Presents to clinic today for a full skin exam. She waslast seen by me on 04/22/2015. She continues to have a burning sensation around the nostils. She has tried OTC hydrocortisone on myrecommendation. She was prescribed betamethasone by her doctor in [place]. This has not helped. She notesthat she uses intranasal steroids for allergies daily. Does not currently take and antihistamine. She comments she is still having dysesthsia on the left anabaptism and ear area. She was seen by Dr. Gramajo on 02/04/2015 who referred her to ENT. She was told the occasional tingling feeling was due to herprior surgery in 1999 on the left cheek; there was no concern for malignancy. Patient states that this is still going on presently and would like me to notify Dr. Gramajo that her symptoms are continuing to see if he has further recommendations for surveillance. She has little bumps on the face she excretes white puss. They are donut shaped with a central pore. Patient states that her betamethasone that she has been using on her upper lip calms the redness butdoesn't get rid of it. Patient indicates that she has allergies and is using a steroidal spray in her nose. She c/o intermittent pustules on face; none today. Allergies Allergen Reactions ??? Shellfish Derived Hives and Other (See Comments) Tongue swelling too ??? Morphine Sulfate Unknown- during surgery states not life threatening. Heart felt like it was going to burst states. ??? Nitrofurantoin Monohyd/M-Cryst Nausea And Vomiting MEDS: Current Outpatient Prescriptions Medication Sig Dispense Refill ??? tretinoin (RETIN-A) 0.025 % Cream Apply [...] moles. EXAM General: NAD, pleasant, cooperative Skin: - Patient was advised to undress to level of comfort for skin exam A total body skin exam except for [...] at this site. Significant skin findings: A. Left calf: warty stuck on papule B. Scattered on the face: 0.1cm firm, round, white subcutaneous papules C. Mild erythema in areas of b/l nostrils D. Scars at above sites, NER E. Trunk and extremities including the face, right inner thigh: Multiple, medium-brown, evenly-pigmented macules and papules. All with regular pigment pattern on dermoscopy. No pigmented lesions suspicious for melanoma. F. Scattered 0.2-0.3cm yellowish papules with central umbilication on the face. G. Midline of the back x 2: Cystic subcutaneous nodule with central/lateral punctum H. Left flank: rubbery subcutaneous nodule ASSESSMENT/PLAN: A. Seborrheic keratoses - Discussed benign nature of lesion and provided reassurance. No treatment necessary at this time. B. Milia - Discussed benign nature of lesion and provided reassurance. No treatment necessary at this time. C. Favor Seborrheic dermatitis on face. However, due to history of steroidal nasal spray use of one year I advised patient to take a Zyrtec 10 mg tablet at night to rule out reaction to nasal spray andcontinue with allergy control. - Discontinue use of betamethasone. - Will consider the use of Protopic should this regimen not resolve the issue. D. H/o multiple melanomas and skin cancer. NER. E. Benign appearing nevi with even pigmentation and well defined margins are noted. -Patient reassured F. Sebaceous Hyperplasia - Discussed benign nature of lesion and provided reassurance. No treatment necessary at this time. G. Epidermal inclusion cyst (EIC) - Discussed benign nature of lesion and provided reassurance. No treatment necessary at this time. H. Lipoma - Discussed benign nature of lesion and provided reassurance. No treatment necessary at this time. I. H/o pustules - Patient was informed that should she have another pustule to call the clinic to schedule a scrape for demodex. - The nature of sun-induced photo-aging and skin cancers is discussed. Sun avoidance, protective clothing, and the use of 30-SPF sunscreens is advised. Observe closely for skin damage/changes, and callif such occurs. Follow up: Return to clinic in 3 months for melanoma exam, or sooner if needed. Patient scheduled upon exiting. Patient instructed to call with questions or concerns. 15 minutes of this 25 minute appointment were spent [id number] in counseling with this patient. Wediscussed pathophysiology, diagnosis, treatment, concerns, expectations and follow-up with regard tothe patient's diagnosis. I also addressed the patient's concerns and answered questions with regard to the above. I am documenting this encounter acting as the scribe for and in the presence of Dr. Zamudio: Dipti Emerson, Clinical Scribe I performed the above scribed service and agree with the accuracy of the documentation in this encounter. Note initiated by: MANDA Ndiaye MD Section of Dermatology [facility] documented in this encounter Plan of Treatment Upcoming Encounters Date Type Specialty Care Team Description 03/14/2022 Office Visit Dermatology [place] Edgar MD [facility] [address] DIANA CANAS-DERMAT [place], [place] [address] (Wo rk) documented as of this encounter Visit Diagnoses Diagnosis Melanoma, malignant, upper extremity, le ft History of basal cell cancer Personal history of other malignant neop lasm of skin Melanoma in situ of lower extremity, lef t Family history of melanoma Family history of other specified malign ant neoplasm Sebaceous hyperplasia Other specified disease of sebaceous gla nds Seborrheic keratosis Other seborrheic keratosis Milia Sebaceous cyst Lipoma, unspecified site EIC (epidermal inclusion cyst) Sebaceous cyst documented in this encounter Care Teams Planting Material Carrier Relationship Specialty Start Date End Date Leeanne Schultz MD PCP - General 10/28/13 [address] [place] [address] documented as of this encounter
--- OUTSIDE RECORDS SUMMARY | 2021-11-23 01:53 | XMS_ITS | Encounter Summary ---
:1945 Author Organization [facility] [place] [address] Care Team Providers Name Role Phone Kajal Schultz MD Primary Care Provider Reason for Visit Reason Comments Procedure melanoma - left lateral arm Encounter Details Date Type Department Care Team Description 11/19/2014 Procedure visit Dermatology at [facility] Ni Zamudio, Melanoma (Primary Road Dx) [address] [place], [place] CENTER [address] [facility] [phone] [address]-DERMATOLOGY [place] [address] Social History Tobacco Use Types Packs/Day Years Used Date Former Smoker Smokeless Tobacco: Never Used Alcohol Use Standard Drinks/Week Comments Yes 7 (1 standard drink = 0.6 oz pure alcoho l) Sex Assigned at Date Recorded Female 10/02/2020 6:58 PM EDT documented as of this encounter Patient Instructions Patient InstructionsMica Patton LPN - 11/19/2014 4:08 PM EDT Section of Dermatology POST OPERATIVE INSTRUCTIONS Wash your hand before changing the dressing. The dressing on the site should remain in place and dry until Saturday The dressing should then be removed gently After removing the dressing, daily wound care should be performed as follows: Clean the wound with warm water and pat dry Apply either Vaseline or Aquaphor Ointment Cover the wound with a new dressing such as Telfa and Tape, or a Band-Aid For discomfort, you may take Tylenol or other non-aspirin pain medication. If bleeding should occur, pressure should be applied constantly for 15 minutes on the dressing with the help of a towel, wash cloth, or piece of gauze. The sutures should be removed in 12-14 days. It is important that you avoid strenuous and/or vigorous activities, heavy lifting (More than 5-10 lbs), and bending for a period of 2 weeks If you have questions, please contact the office of Ni Zamudio MD during the day at [phone] Nurse: Mica [phone] After 5 PM and on weekends, please call the hospital number , and ask for the Medical Care Evaluation Specialist executive search consultant. 2 documented in this encounter Progress Notes Melani Snyder - 11/24/2014 5:19 PM EDT Quick Note: -letter sent to patient Ni Zamudio MD - 11/19/2014 5:53 PM EDT DERMATOLOGY SURGICAL APPOINTMENT NOTE Date of service: 11/19/2014 Kajal Bush : 1945 Provider: Ni Zamudio MD Chief Complaint Patient presents with ??? Procedure melanoma - left lateral arm HPI: Kajal Bush is a 69 y.o. year old female who presents for surgical removal of above. No changes in health since last visit. ADR: Allergies Allergen Reactions ??? Shellfish Derived Hives and Other (See Comments) Tongue swelling too ??? Morphine Sulfate Unknown- during surgery states not life threatening. Heart felt like it was going to burst states. ??? Nitrofurantoin Monohyd/M-Cryst Nausea And Vomiting Meds: . Current Outpatient Prescriptions Medication Sig Dispense Refill [...] No current facility-administered medications for this visit. Exam: NAD, pleasant, cooperative Skin, focused exam: 0.7cm sclerotic papule with 0.5x0.4cm brown patch abutting the biopsy scar. Pathology Report: Rec Date: 10/15/2014 LOC: [facility] SURGICAL PATHOLOGY ---Pathologic Diagnosis--- A - Skin, left lateral arm, shave biopsy: - Malignant melanoma, predominantly melanoma in situ with focal invasion to the depth of 0.25 mm (see template) Specimen: Skin, left lateral arm, shave biopsy Histologic Type: Malignant melanoma Ulceration: Not identified Depth of Invasion: 0.25 mm Ronaldo's Level: II Regression: Not identified Vascular Invasion: Not identified Perineural Invasion: Not identified Microscopic Satellites: Cannot assess Dermal mitoses per mm2: 0 Tumor infiltrating lymphocytes: Absent Solar Elastosis: Present Associated Nevus: Not identified Margins: Peripheral Margins: Involved by melanoma in situ Deep Margin: Melanoma in situ close to deep edge along adnexal structures Pathologic TNM Codes: pT1a A/P: 1. Patient verified. Surgical site identified with patient. Pathology reviewed. 2. Procedure Notes: Surgeon: Ni Zamudio MD Sheet Metal Roofer:Mica Patton LPN A. Excision of lesion, excision width including margins = 3.2cm B. Intermediate repair, length 10cm Site: left lateral arm Discussed treatment, expectations, need for follow-up. Informed consent obtained. See CIS for current medications, drug sensitivities and vital signs. Sterile skin prep performed. Local anesthesia: buffered 1% lidocaine with 1/100,000 epinephrine. The excision was designed with clinically clear-appearing margins of at least 1 cm in order to remove the lesion. The lesion was excised down to the level of fascia. An intermediate closure was required in order to close potential space and to reduce the risk of dehiscence. Hemostasis was achieved. A layered closure was performed. Multiple buried absorbable sutures were placed to reappose deep fat. The epidermis and dermis were reapposed using monofilament suture. There were no complications; the patient tolerated the procedure well. Specimen to Pathology. The wound was dressed. Post-procedure expectations (including discomfort management), wound care and activity restrictions were reviewed. Suture removal: 14 days 3. Follow up: 3 months Ni Zamudio MD Section of Dermatology [facility] documented in this encounter Plan of Treatment Upcoming Encounters Date Type Specialty Care Team Description 03/14/2022 Office Visit Dermatology [place] Edgar MD [facility] [address] DIANA CANAS-DERMAT [place], [place] [address] (Wo rk) Scheduled Orders Name Type Priority Associated Diagnoses Order S chedule Pathology Order Update Lab Routine Melanoma Order ed: 11/19/2014 documented as of this encounter Procedures Procedure Name Priority Date/Time Associated Diagnosis Comme nts SURGICAL PATHOLOGY Routine 11/19/2014 4:42 PM Res ults for this REPORT EDT procedure are i n the results section. SPECIMEN TO Routine 11/19/2014 4:21 PM Melanoma Results f or this PATHOLOGY (NON-OR) EDT procedure are in the results section. documented in this encounter Results Surgical Pathology Report (11/19/2014 4:42 PM EDT) Component Value Ref Test Analysis Performed At [facility] Range Method Time Signature Surgical CERNER Pathology ? [facility] Report ? Provider: ?? LORNA, NI M ? Pt. Name: ?? HAJA ER, KAJAL Ureña ? Acc #: ?[id number] ? Pt. ? Col Date: ?? 5 ? /Sex: ?1945,(69 years),Female ? Rec Date: ?? 11/19/2014 ? LOC: ?[facility] ? SURGICAL PATHOLOGY ? ---Pathologic Diagnosis--- ? Skin, left lateral arm, excision: ?1. Residual melanoma in situ adjacen t to scar. The examined inked ? margins are free of lesion (see Comment). ?2. Incidental de rmal nevus, neurotized. The examined inked margins are ? free of lesion. ? CR-0 ? 11/22/14 ? [facility] ? 11/24/14 Verified by: ? Herb PETER, PhD, Jose ? Dermatopatholo gist ? (Electronic Si gnature) ? The attending pathologist whose signature appears o n this report has ? reviewed all diagnostic slides and has edited the suzanne ss and/or ? microscopic portion of the report in rendering the fi nal pathologic ? diagnosis. ? ---Comment--- ? Slides of the patient's prior biopsy ( 7) have been reviewed. ? ---Gross Description--- ? A - Labeled/Fixative: Left lateral arm, formalin. ? Quantity/Size: Single, 0.5 x 3.0 cm, depth rang es from 0.8-1.8 cm cm. ? Tissue Description: E llipse of callahan skin with a 1.0 x 0.8 cm brown macule ? within which is a 0.6 cm white scar. ??The specimen is received oriented ? with a suture at one side margin, designating superior edge. The suture ? will now be designated as 12 o'clock. ? Sections/Processing: The specimen is inked blue from 9-12-3 o'clock and ? black from 3-6-9 o'clock. ??(1) 3 o'clock end; (2-15) body from 3 to 9 ? o'clock; (16) 9 o'clock end. (T16) ??sns ? ---Clinical Information--- ? Specimen Submitted: ? A - Left lateral arm, excision (1) ? Clinical History: ? 0.4 x 0.5 cm brown patch adjacent to scar at biopsy s e [id number] ? Clinical Diagnosis: ? Melanoma Specimen (Source) Anatomical Collection Method Collection Time Re ceived Time Location / / Volume Laterality 11/19/2014 4:42 PM EDT Ni Zamudio MD PATHOLOGY/CYTOLOGY ORDERABLE S Performing Organization Address [facility]/ZIP Code Phon e Number [address] [facility] Specimen to Pathology (NON-OR) (11/19/2014 4:21 PM EDT) Specimen Anatomical Collection Method Collection Time Receive d Time (Source) Location / / Volume Laterality AP Specimen 11/19/2014 4:21 PM 201 5 4:21 EDT PM EDT Narrative CERNER MILLENNIUM - 11/19/2014 4:21 PM E DT Specimen requisition ordered. ??Separate Pathology report to follow Ni Zamudio MD PATHOLOGY/CYTOLOGY ORDERABLE S Performing Organization Address [facility]/[place]IP [facility] [place] [address] CERNER MILLENNIUM documented in this encounter Visit Diagnoses Diagnosis Melanoma - Primary Melanoma of skin, site unspecified documented in this encounter Care Teams Junior Software Developer Relationship Specialty Start Date End Date Kajal Schultz MD PCP - General 10/28/13 [address] [place] [address] documented as of this encounter
--- OUTSIDE RECORDS SUMMARY | 2021-11-23 01:53 | XMS_ITS | Encounter Summary ---
:1945 Author Organization [facility] [place] [address] Care Team Providers Name Role Phone Leeanne Schultz MD Primary Care Provider Encounter Details Date Type Department Care Team Description 01/09/2017 Telephone Dermatology at [facility] Cm Kaminski III, [address] [place] [address] [facility] [phone] DIANA MEDINA-DERMAT [place] [id number] (Wo rk) Social History Tobacco Use Types Packs/Day Years Used Date Former Smoker Smokeless Tobacco: Never Used Alcohol Use Standard Drinks/Week Comments Yes 7 (1 standard drink = 0.6 oz pure alcoho l) Sex Assigned at Date Recorded Female 10/02/2020 6:58 PM EDT documented as of this encounter Miscellaneous Notes Telephone Encounter - Cm Kaminski III, MD - 01/09/2017 9:48 AM EDT I called the patient and discussed the path report: DIAGNOSIS Skin, right intfa orbital, shave ?? biopsy: - Lentigo This is a benign pigmented lesion. I discussed this condition with the patient . No further treatment is needed. She reports the site is healing well. We will see her back as planned. Cm Kaminski MD Section of Dermatology [facility] documented in this encounter Plan of Treatment Upcoming Encounters Date Type Specialty Care Team Description 03/14/2022 Office Visit Dermatology [place] Edgar MD [facility] ER DR DIANA MEDINA-DERMAT [place], [place] [address] (Wo rk) documented as of this encounter Visit Diagnoses Not on filedocumented in this encounter Care Teams Extruding Machine Operator Relationship Specialty Start Date End Date Leeanne Schultz MD PCP - General 10/28/13 [address] [place] [address] documented as of this encounter
--- OUTSIDE RECORDS SUMMARY | 2021-11-23 01:53 | XMS_ITS | Encounter Summary ---
:1945 Author Organization [facility] [place] [address] Care Team Providers Name Role Phone Leeanne Schultz MD Primary Care Provider Encounter Details Date Type Department Care Team Description 01/10/2018 Hospital Encounter [place] [address] Social History Tobacco Use Types Packs/Day [...] 03/14/2022 Office Visit Dermatology [place] Edgar MD [facility] [address] DIANA CANAS-DERMAT [place], [place] [address] (Wo rk) documented as of this encounter Procedures Procedure Name Priority Date/Time Associated Diagnosis Comme nts FILM LIBRARY STAT 01/10/2018 12:05 AM Results for this STORAGE ONLY DX EDT procedure ar e in ABDOMEN the results section. documented in this encounter Results Film Library- Storage Only DX Abdomen (01/10/2018 12:05 AM EDT) Specimen (Source) Anatomical Location Collection Method / Collectio n Time Received Time / Laterality Volume Narrative [facility] - 01/11/2018 12:14 AM EDT This exam is for storage only and is aut o-finalizing. Sylvia Olvera MD IMG FILM LIBRARY ORDERABLES Performing Organization Address City/State/ZIP Code Phon e Number [facility] [place], [place] documented in this encounter Visit Diagnoses Not on filedocumented in this encounter Care Teams Puppy Walker Relationship Specialty Start Date End Date Leeanne Schultz MD PCP - General 10/28/13 [address] [place] [address] documented as of this encounter
--- OUTSIDE RECORDS SUMMARY | 2021-11-23 01:53 | XMS_ITS | Encounter Summary ---
:1945 Author Organization [facility] Address [place] [id number] Care Team Providers Name Role Phone Leeanne Schultz MD Primary Care Provider Reason for Visit MRI/CAT Scan (Routine) - Closed Specialty Diagnoses / Procedures Referred By Contact Refer red To Contact Radiology Diagnoses Melanoma Evy Gramajo MD [facility] Rad Ct Scan Procedures PET/CT Standard Plus Extremities and Head [facility] HEMATOLOGY/[place] [address] [place] [address] Referral ID Status Reason Start Date Expiration Date Visits Requ ested Visits Authorized [id number] Closed 01/26/2015 01/26/2016 1 1 Encounter Details Date Type Department Care Team Description 02/04/2015 Hospital Encounter Nuclear Medicine at [place] Gramajo MD [facility] [address] [place]EMATOLOGY/[place] [address] DEPT [phone] [place], [place] [address] (Wo rk) Social History Tobacco Use Types Packs/Day Years Used Date Former Smoker Smokeless Tobacco: Never Used Alcohol Use Standard Drinks/Week Comments Yes 7 (1 standard drink = 0.6 oz pure alcoho l) Sex Assigned at Date Recorded Female 10/02/2020 6:58 PM EDT documented as of this encounter Medications at Time of Discharge Medication Sig Dispensed Refills Start Date End Date clonazePAM (KLONOPIN) 1 0 08/07/2013 mg tablet [...] mg by mouth 0 09/03 tablet nightly. CELEBREX 200 mg capsule Take 200 mg by mouth 0 04/15/2015 as needed. tretinoin (RETIN-A) 0.025 Apply topically to 45 g 0 04/26/2015 % creamIndications: Skin affected areas on lesion the face at night. Estradiol 0.1 mg/[address] 1 patch onto 0 12/16/2020 PTWK the skin once a week. documented as of this encounter Plan of Treatment Upcoming Encounters Date Type Specialty Care Team Description 03/14/2022 Office Visit Dermatology [place] Edgar MD [facility] ER [address] DIANA CANAS-DERMAT [place] [address] (Wo rk) documented as of this encounter Procedures Procedure Name Priority Date/Time Associated Comments Diagnosis NM PET CT STANDARD Routine 02/04/2015 9:52 AM Melanoma Res ults for this PLUS EXTREMITIES AND EDT procedu re are in HEAD the results section. documented in this encounter Results (ABNORMAL) PET/CT Standard Plus Extremities and Head (02/04/2015 9:52 AM EDT) Anatomical Region Laterality Modality Positron Emission To mography (PET) Specimen (Source) Anatomical Location Collection Method / Collectio n Time Received Time / Laterality Volume Impressions 02/04/2015 2:04 PM EDT IMPRESSION: 1. ??Focus of FDG activity at the call center associate ior tongue. This could be due to inflammation or malignancy. Correlation with clinical findings is required. Direct visualization is recommended. UNE XPECTED FINDING. 2. ??CT visualized subcutaneous soft tis trice densities at the level of T3 spinous process and left posterior lateral chest . These lesions may be below the resolution of PET. Correlation with the patient's prior surgical history is required. 3. ??Incidental CT finding of horseshoe kidney and nonobstructing renal calculus. Thank you for referring this patient [facility]. This report was reviewed by Mehnaz Saenz at 02/04/2015 2:04 PM Narrative 02/04/2015 2:04 PM EDT EXAMINATION: PET/CT STANDARD WITH EXTREMITIES AND HEAD CLINICAL HISTORY: melanoma TECHNIQUE: Following IV injection of 18- bfggna-9-vrreuthwpmdt (FDG) a standard uptake of approximately 60 minutes, a no ncontrast CT scan followed by a PET scan were acquired from the top of head to zeeshan ttom of feet. The noncontrast CT was used for anatomic localization and photo n attenuation correction of the PET scan. Blood glucose level: 82 (mg/dL) FDG dose: 11 mCi COMPARISON: None FINDINGS: HEAD/NECK: Focus of FDG uptake that localizes to th e posterior tongue at the midline (axial image 61). Normal activity in all other soft tissue regions of the neck and head. Bilateral maxillary sinus mucosal thickening, right greater than left. ? CHEST: Normal activity in all soft tissue regio ns. Small CT visualized soft tissue density to the left of midline on the ba ck (axial image 106) at the level of the T3 spinous process. CT visualized soft t issue density in the posterior lateral chest (axial image 127). ? ABDOMEN/PELVIS: Normal activity in all soft tissue regio ns. 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 Nonobstructing renal calculus in the right side of the horseshoe kidney (axial image 195). ? SKELETON/EXTREMITIES: Normal activity in all regions of the ax ial and appendicular skeleton. ? Resulting Agency Comment Unexpected Finding Procedure Note Mehnaz Herrera MD - 2014 EXAMINATION: PET/CT STANDARD WITH EXTREM ITIES AND HEAD CLINICAL HISTORY: melanoma TECHNIQUE: Following IV injection of 18- smpsob-4-jybclndsenxi (FDG) a standard uptake of approximately 60 minutes, a no ncontrast CT scan followed by a PET scan were acquired from the top of head to zeeshan ttom of feet. The noncontrast CT was used for anatomic localization and photo n attenuation correction of the PET scan. Blood glucose level: 82 (mg/dL) FDG dose: 11 mCi COMPARISON: None FINDINGS: HEAD/NECK: Focus of FDG uptake that localizes to th e posterior tongue at the midline (axial image 61). Normal activity in all other soft tissue regions of the neck and head. Bilateral maxillary sinus mucosal thickening, right greater than left. CHEST: Normal activity in all soft tissue regio ns. Small CT visualized soft tissue density to the left of midline on the ba ck (axial image 106) at the level of the T3 spinous process. CT visualized soft t issue density in the posterior lateral chest (axial image 127). ABDOMEN/PELVIS: Normal activity in all soft tissue regio ns. 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 Nonobstructing renal calculus in the right side of the horseshoe kidney (axial image 195). SKELETON/EXTREMITIES: Normal activity in all regions of the ax ial and appendicular skeleton. IMPRESSION IMPRESSION: 1. Focus of FDG activity at the posterio r tongue. This could be due to inflammation or malignancy. Correlation with clinical findings is required. Direct visualization is recommended. UNE XPECTED FINDING. 2. CT visualized subcutaneous soft tissu e densities at the level of T3 spinous process and left posterior lateral chest . These lesions may be below the resolution of PET. Correlation with the patient's prior surgical history is required. 3. Incidental CT finding of horseshoe ki dney and nonobstructing renal calculus. Thank you for referring this patient [facility]. This report was reviewed by Mehnaz Saenz at 02/04/2015 2:04 PM Evy Gramajo MD IMG PET ORDERABLES documented in this encounter Visit Diagnoses Not on filedocumented in this encounter Care Teams Manager Investigations Relationship Specialty Start Date End Date Leeanne Schultz MD PCP - General 10/28/13 [address] [place] [address] documented as of this encounter
--- OUTSIDE RECORDS SUMMARY | 2021-11-23 01:53 | XMS_ITS | Encounter Summary ---
:1945 Author Organization [facility] [place] [address] Care Team Providers Name Role Phone Leeanne Schultz MD Primary Care Provider Reason for Visit Reason Comments Suture / Staple Removal Encounter Details Date Type Department Care Team Description 12/01/2014 Ancillary Appointment Dermatology at [facility] MD [place] [address] [place] [address] [facility] [place], [place] [address] Social History Tobacco Use Types Packs/Day Years Used Date Former Smoker Smokeless Tobacco: Never Used Alcohol Use Standard Drinks/Week Comments Yes 7 (1 standard drink = 0.6 oz pure alcoho l) Sex Assigned at Date Recorded Female 10/02/2020 6:58 PM EDT documented as of this encounter Progress Notes Karyn Handy LPN - 12/01/2014 3:18 PM EDT LEEANNE BUSH 69 y.o. 1945 Suture Removal: 1. Here for scheduled suture removal, status post excision of malignant melanoma on left lateral arm. History: Patient has had no problems or concerns since the procedure. Examination: Wound edges show good apposition and a healthy wound. No sign of infection or dehiscence. Diagnosis: 1. Appropriate for suture removal Plan/Procedure: 1. Sutures removed without complication. 2. Steri-strips placed for good measure. 3. Follow up as scheduled. KARYN HANDY LPN documented in this encounter Plan of Treatment Upcoming Encounters Date Type Specialty Care Team Description 03/14/2022 Office Visit Dermatology [place] Edgar MD [facility] [address] DIANA CANAS-DERMAT [place], [place] [address] (Wo rk) documented as of this encounter Visit Diagnoses Not on filedocumented in this encounter Care Teams Game Manager Relationship Specialty Start Date End Date Leeanne Schultz MD PCP - General 10/28/13 [address] [place] [address] documented as of this encounter
--- OUTSIDE RECORDS SUMMARY | 2021-11-23 01:53 | XMS_ITS | Encounter Summary ---
:1945 Author Organization [facility] Address [place] [id number] Care Team Providers Name Role Phone Leeanne Schultz MD Primary Care Provider Reason for Referral MRI/CAT Scan (Routine) - Closed Specialty Diagnoses / Procedures Referred By Contact Refer red To Contact Radiology Diagnoses Melanoma Evy Gramajo MD [facility] Rad Ct Scan Procedures PET/CT Standard Plus Extremities and Head [facility] HEMATOLOGY/[place] [id number] [place] [address] Referral ID Status Reason Start Date Expiration Date Visits Requ ested Visits Authorized [id number] Closed 01/26/2015 01/26/2016 1 1 Reason for Visit MRI/CAT Scan (Routine) - Closed Specialty Diagnoses / Procedures Referred By Contact Refer red To Contact Radiology Diagnoses Melanoma Evy Gramajo MD [facility] Rad Ct Scan Procedures PET/CT Standard Plus Extremities and Head [facility] HEMATOLOGY/[place] [address] [place] [address] Referral ID Status Reason Start Date Expiration Date Visits Requ ested Visits Authorized [id number] Closed 01/26/2015 01/26/2016 1 1 Encounter Details Date Type Department Care Team Description 02/04/2015 Hospital Encounter Nuclear Medicine at [facility] [place] l[place] MD [facility] DR Baldwin HEMATOLOGY/[place] [address] DEPT [phone] [place], [place] [address] (Wo rk) Social History Tobacco [...] 03/14/2022 Office Visit Dermatology [place] Edgar MD [facility] ER DR DIANA CANAS-DERMAT [place], [place] [address] (Wo rk) documented as of this encounter Procedures Procedure Name Priority Date/Time Associated Comments Diagnosis NM PET CT STANDARD Routine 02/04/2015 9:52 AM Melanoma Res ults for this PLUS EXTREMITIES AND EDT procedu re are in HEAD the results section. POCT GLUCOSE Routine 02/04/2015 8:58 AM Results f or this EDT procedure [...] 1. ??Focus of FDG activity at the fill plant operator ior tongue. This could be due to [...] calculus. Thank you for referring this patient [facility]. This report was reviewed by Mehnaz Saenz at 02/04/2015 2:04 PM Narrative 02/04/2015 2:04 PM EDT EXAMINATION: PET/CT STANDARD WITH EXTREMITIES AND HEAD CLINICAL HISTORY: melanoma TECHNIQUE: Following IV injection of 18- xhgqmt-2-lpaaaxhmtwfc (FDG) a standard uptake of approximately 60 [...] melanoma TECHNIQUE: Following IV injection of 18- oexrml-8-orsxhgrtnqjk (FDG) a standard uptake of approximately 60 [...] calculus. Thank you for referring this patient [facility]. This report was reviewed by Mehnaz Saenz at 02/04/2015 2:04 PM Evy Gramajo MD IMG PET ORDERABLES POCT Glucose (02/04/2015 8:58 AM EDT) athologist Signature POC Glucose 82 65 - 199 CERNER mg/dL [facility] Comment: Supplemental ranges: <140 mg/dL before meals <180 mg/dL all other times of the day Specimen Anatomical Collection Method Collection Time Receive d Time (Source) Location / / Volume Laterality Blood specimen 02/04/2015 8:58 AM 015 8:58 (specimen) EDT AM EDT Evy Gramajo MD POINT OF CARE TEST ORDERABLE S Performing Organization Address City/State/ZIP Code Phon e Number [address] [facility] documented in this encounter Visit Diagnoses Diagnosis Melanoma Melanoma of skin, site unspecified documented in this encounter Administered Medications Inactive Administered Medications - up to 3 most recent administrations Medication Order MAR Action Action Date Dose Rate Site fludeoxyglucose (F-18) FDG Given 02/04/2015 9:21 AM EDT 10.9 mCi injection 10.9 mCi 10.9 mCi, Intravenous, ONCE PRN, 1 dose, Starting on Sat02/04/15 at 0918, Until Sat02/04/15 at 0921, Per Protocol, Routine documented in this encounter Care Teams Front Maker Relationship Specialty Start Date End Date Leeanne Schultz MD PCP - General 10/28/13 [address] [place] [address] documented as of this encounter
--- OUTSIDE RECORDS SUMMARY | 2021-11-23 01:53 | XMS_ITS | Encounter Summary ---
:1945 Author Organization [facility] [address] Care Team Providers Name Role Phone Leeanne Schultz MD Primary Care Provider Encounter Details Date Type Department Care Team Description 01/24/2015 Orders Only Hematology and Oncol ogy at [facility] [place] [address] Social History Tobacco Use Types Packs/Day [...] 03/14/2022 Office Visit Dermatology [place] Edgar MD [facility] ER DR DIANA CANAS-DERMAT [place], [place] [address] (Wo rk) documented as of this encounter Visit Diagnoses Not on filedocumented in this encounter Care Teams Shell Sorter Relationship Specialty Start Date End Date Leeanne Schultz MD PCP - General 10/28/13 [address] [place] [address] documented as of this encounter
--- OUTSIDE RECORDS SUMMARY | 2021-11-23 01:53 | XMS_ITS | Encounter Summary ---
:1945 Author Organization [facility] [place] [address] Care Team Providers Name Role Phone Leeanne Schultz MD Primary Care Provider Encounter Details Date Type Department Care Team Description 01/10/2018 Hospital Encounter [place] [address] Social History Tobacco Use Types Packs/Day [...] Office Visit Dermatology [place] Edgar MD [facility] [address] DIANA CANAS-DERMAT [place], [place] [address] (Wo rk) documented as of this encounter Procedures Procedure Name Priority Date/Time Associated Diagnosis Comme nts FILM LIBRARY STAT 01/10/2018 12:00 AM Results for this STORAGE ONLY CT EDT procedure ar e in ABDOMEN AND PELVIS the resul ts section. documented in this encounter Results Film Library- Storage Only CT Abdomen & Pelvis (01/10/2018 12:00 AM EDT) Specimen (Source) Anatomical Location Collection Method / Collectio n Time Received Time / Laterality Volume Narrative [facility] - 01/11/2018 12:10 AM EDT This exam is for storage only and is aut o-finalizing. Sylvia Olvera MD IMG FILM LIBRARY ORDERABLES Performing Organization Address City/State/ZIP Code Phon e Number [facility] [place], [place] documented in this encounter Visit Diagnoses Not on filedocumented in this encounter Care Teams Supervisor [employer] Relationship Specialty Start Date End Date Leeanne Schultz MD PCP - General 10/28/13 [address] [place] [address] documented as of this encounter
--- OUTSIDE RECORDS SUMMARY | 2021-11-23 01:53 | XMS_ITS | Encounter Summary ---
:1945 [place] [address] Care Team Providers Name Role Phone Leeanne Schultz MD Primary Care Provider Reason for Visit Reason Comments Skin Check Encounter Details Date Type Department Care Team Description 10/22[facility]2016 [facility] Dx[facility] [place] FONSECA MD Skin lesion of right arm; [address] [facility] (seborrheic keratosis); [place] [address] Lentisushant; [phone] [facility] Multiple benign nevi; RD-DERMATOLGY History of melanoma [place], [place] [address] Social History Tobacco Use Types Packs/Day Years Used Date Former Smoker Smokeless Tobacco: Never Used Alcohol Use Standard Drinks/Week Comments Yes 7 (1 standard drink = 0.6 oz pure alcoho l) Sex Assigned at Date Recorded Female 10/02/2020 6:58 PM EDT documented as of this encounter Patient Instructions Patient InstructionsMyriam Beverly - 10/22/2016 11:00 AM EDT Treatment and Wound Care Instructions Your treatment today: You have had a shave biopsy of your skin, which is a removal of tissue for examination under a microscope. This wound will heal without stitches. Allow 3-6 weeks for the wound to heal. If bleeding occurs, hold firm pressure against the wound for 15 minutes. If bleeding continues, calls the office or go to your local emergency room. Please allow 1-2 weeks for the biopsy results to return. Your physician or nurse will contact you with the results by phone or letter; follow-up will be discussed at that time. Wound Care Instructions: You will need to [...] or concerns, please call the office at [phone]. If it is after 5PM, or a holiday or weekend, please call [phone] and ask for the Electric Meter Installer on-call. documented in this encounter Progress Notes Mónica Dozier LPN - 10/22/2016 11:00 AM EDT Images from the original note were not included. DERMATOLOGY ESTABLISHED PATIENT CLINIC NOTE Date of service: 10/22/2016 Leeanne Bush : 1945 Provider: Cm Kaminski MD PROBLEM: Skin cancer screening SKIN HISTORY: - She has family history [...] back. ? August 2007, MIS treated in [place] ? Right lateral thigh. 6. 10/2006 Right lower back, mild to moderate DN , Excised 7. She grew up in [place] with a history of extensive sun exposure. [...] 17.07/17/2014, MIS, left upper arm, WLE 18. 2015, MIS, right forearm, WLE 19. 2014, severely atypical intraepidermal melanocytic proliferation arising in a nevus, excised 20.10/15/2014-left lateral arm - Malignant melanoma, predominantly melanoma in situ with focal invasion to the depth of 0.25 mm (see template) excised 11/19/2014 21. ??04/22/15 - right medial thigh,TRAUMATIZED COMPOUND MELANOCYTIC NEVUS, PRESENT AT THE PERIPHERAL HPI Leeanne Bush is a 71 y.o. year old female. She presents for a full skin exam. She has a history of multiple melanomas and has a strong family history of melanoma.. She has multiple spots and is checked regularly by a naturopathic doctor. She is unaware of any new spots of concern. She has identical twin brothers and one has had melanoma. ADR: Allergies Allergen Reactions ??? Shellfish Derived Hives and Other (See Comments) Tongue swelling too ??? Nitrofurantoin Monohyd/M-Cryst Nausea And Vomiting CURRENT MEDICATIONS: Current Outpatient Prescriptions Medication Sig Dispense Refill ??? ciprofloxacin (CIPRO) [...] Melanoma C43.9 ??? Health care maintenance Z00.00 ROS General: feeling well. Oriented X 3. Skin: denies other skin complaints EXAM General: NAD, pleasant, cooperative Skin: The entire skin surface was examined, including the face, neck, chest, abdomen, back. The armsand legs, including the palms, soles, fingers and between the toes. No lymphadenopathy, including the supraclavicular, cervical, axillary, and inguinal areas. Melanoma excision site scar was examined and palpated. There was no increase in pigmentation or induration at this site. Significant skin findings: A. Right forearm - 9 mm macule with slightly irregular pigment - in an area adjacent to scar from earlier melanoma Photos taken by: Dr. Kaminski Photos taken and charted with patient consent B. Right upper eyelid, trunk and extremities - 0.4-0.6cm brown papules with waxy, stuck-on appearance. Milia-like cysts, comedone-like openings and/or fissuring on dermoscopy. C. Sun exposed areas - 0.3-0.6cm light-brown evenly pigmented, well-demarcated macules D. Trunk and extremities - Multiple, 0.3-0.5cm, medium-brown, evenly-pigmented macules and papules. All with regular pigment pattern on dermoscopy. E. In areas, as per skin history - Well-healed surgical scar with no clinical evidence of recurrencenoted Procedure Screening Questions: ? No? Yes ?? Defibrillator/Pacemaker?? x ?? Artificial Joints?? x ?? Heart Valves?? x ?? Blood Thinners?? x ?? Prophylactic Antibiotics?? x ?? ASSESSMENT/PLAN: A. Lentigo r/o atypia - right forearm adjacent from earlier melanoma scar I discussed this condition with the patient and explored therapeutic options. I recommended we do a shave biopsy, joint decision made to proceed with skin biopsy for further diagnostic information. Procedure: Skin biopsy by shave technique Location: right forearm Discussed indications for procedure and expectations including [...] restrictions were reviewed. Follow-up based on pathology results B. Seborrheic Keratosis - right upper eyelid, trunk and extremities (asymptomatic) - Etiology discussed - Patient reassured lesions are benign in nature - Explained that these are hereditary, adult onset and acquired. - Can develop anywhere on the body except for palms or soles - Treatment of an asymptomatic seborrheic keratosis is considered a cosmetic procedure and is not covered by insurance. C. Lentigines - sun exposed areas (asymptomatic) - Discussed benign nature of lesion and provided reassurance - No treatment necessary at this time - Observe skin for change in color, size or character. Call if such occur D. Benign appearing nevi with even pigmentation and well defined margins are noted (asymptomatic) - Discussed benign nature of lesion and provided reassurance - No treatment necessary at this time - Observe skin for change in color, size or character. Call if such occur E. Scars with h/o Melanoma - In areas, as per skin history - Well-healed surgical scar with no clinical evidence of recurrence noted -No cervical, supraclavicular or axillary lymphadenopathy noted. -No signs of recurrence -Continue to monitor Discussed importance of sun protection, sun avoidance strategies, protective clothing, and sunscreen. RTC in 3-4 months for melanoma skin exam, sooner if needed. Appointment scheduled upon exit. Instructed to call if problems arise. Note initiated by: MÓNICA DOZIER LPN ? Myriam Beverly, Clinical Scribe has performed the documentation for this encounter in the presence of and acting as a scribe for Dr. Cm Kaminski. I performed the above scribed service and agree with the accuracy of the documentation in this encounter. I performed the above scribed service and agree with the accuracy of the documentation in this encounter. Cm Kaminski MD Section of Dermatology [facility] documented in this encounter Plan of Treatment Upcoming Encounters Date Type Specialty Care Team Description 03/14/2022 Office Visit Dermatology [place] Edgar MD [facility] [address] DIANA CANAS-DERMAT [place], [place] [address] (Wo rk) documented as of this encounter Procedures Procedure Name Priority Date/Time Associated Diagnosis Comme nts SPECIMEN TO Routine 10/22/2016 11:37 AM Neoplasm of Results for this PATHOLOGY (NON-OR) EDT uncertain behavior pro cedure are in of skin the results section. SURGICAL PATHOLOGY Routine 10/22/2016 11:37 AM Re sults for this REPORT EDT procedure are i n the results section. documented in this encounter Results Surgical Pathology Report (10/22/2016 11:37 AM EDT) Component Value Ref Test Analysis Performed At [facility] gist Range Method Time Signature Surgical [id number] ?Location: [facility] Pathology [place] Report The signing pathologist has (i) examined the relevant preparation(s) for the [facility] specimen(s) and (ii) rendered or confirmed the diagnosis(es) . HOSPITAL LABORATORY . ?Surgic al Pathology DIAGNOSIS Skin, right forearm, shave biopsy: - LENTIGO Electronically signed by: ??Jason Bailey MD Verified: ??10/24/2016 ?Dermatopathologist, Bone & Soft Tissue Pathologist CLINICAL INFORMATION Specimen Submitted: A - Skin, right forearm, shave biopsy (1) Clinical History: 9 mm macule with slightly irregular pigment Clinical Diagnosis: Lentigo, rule out atypia SPECIMEN PROCESSING A - Labeled/Fixative: Patient demographics, formalin. Quantity/Size: Single, 1.0 x 0.6 x 0.1 cm. Tissue Description: Shave of yellow-brown skin. Sections/Processing: The spe cimen is inked, sectioned and entirely submitted with the tips appearing in cassette (1) and the body in cassette (2) . (T2) ??ejr Specimen (Source) Anatomical Collection Method Collection Time Re ceived Time Location / / Volume Laterality 10/22/2016 11:37 AM EDT Cm Kaminski III, MD PATHOLOGY/CYTOLOGY ORDERABLE S Performing Organization Address City/State/ZIP Code Phon e Number [place] [id number] [address] Specimen to Pathology (NON-OR) (10/22/2016 11:37 AM EDT) Specimen Anatomical Collection Method Collection Time Receive d Time (Source) Location / / Volume Laterality AP Specimen 10/22/2016 11:37 10/22/2016 3:47 AM EDT PM EDT Narrative [facility] - 10/22/2016 3:48 PM EDT Specimen requisition ordered. ??Separate Pathology report to follow Resulting Agency Comment Spec In Lab Cm Kaminski III, MD PATHOLOGY/CYTOLOGY ORDERABLE S Performing Organization Address City/State/[place] [address] documented in this encounter Visit Diagnoses Diagnosis Neoplasm of uncertain behavior of skin - Primary Skin lesion of right arm Unspecified disorder of skin and subcuta neous tissue SK (seborrheic keratosis) Other seborrheic keratosis Lentigines Other dyschromia Multiple benign nevi Benign neoplasm of skin, site unspecifie d History of melanoma Personal history of malignant melanoma o f skin documented in this encounter Care Teams Helper Marble Finisher Relationship Specialty Start Date End Date Leeanne Schultz MD PCP - General 10/28/13 [address] [place] [address] documented as of this encounter
--- OUTSIDE RECORDS SUMMARY | 2021-11-23 01:53 | XMS_ITS | Encounter Summary ---
:1945 Author Organization [facility] [place] [address] Care Team Providers Name Role Phone Leeanne Schultz MD Primary Care Provider Reason for Visit Reason Comments Follow-up Encounter Details Date Type Department Care Team Description 10/05/2015 [facility] [address] [facility]ioral dermat[facility]); [place] PETER Seborrheic dermatitis [address] [place] [address] [facility] [place], [place] [address] Social History Tobacco Use Types Packs/Day Years Used Date Former Smoker Smokeless Tobacco: Never Used Alcohol Use Standard Drinks/Week Comments Yes 7 (1 standard drink = 0.6 oz pure alcoho l) Sex Assigned at Date Recorded Female 10/02/2020 6:58 PM EDT documented as of this encounter Progress Notes Ni Zamudio MD - 10/05/2015 1:13 PM EDT DERMATOLOGY ESTABLISHED PATIENT CLINIC NOTE Date of service: 10/05/2015 Leeanne Bush : 1945 Provider: Ni Zamudio MD Chief Complaint Patient presents with ??? Follow-up SKIN HISTORY: - She has family history [...] SEBORRHEIC KERATOSIS HPI Leeanne Bush is a 70 y.o. year old female. Established patient, last seen by me on 09/06/15. Patient presents to the clinic today for a Perioral Dermatitis follow up. [place] Dr. Allen, prescribed Minocylcine 50 mg capsule for perioral dermatitis. She reports she does not feel this is getting worse, but she needs a follow up to discuss this. She reports it has spread to her chin area, as well as bilateral upper inner canthus area. Patient reports that this is worsened by drinking wine and eating hot peppers. ADR: Allergies Allergen Reactions ??? Shellfish Derived [...] feeling well Skin: denies other skin complaints EXAM General: NAD, pleasant, cooperative Skin: An exam of the skin from the neck up was performed. This includes examination of the skin of the face, ears, scalp, and neck. Significant skin findings: A. Scattered 1-2mm pink papules on chin B. On NL folds: light pink thin plaques b/l symmetric. Similar plaque on right perinasal area ASSESSMENT/PLAN: A. Perioral Dermatitis, +/- Seborrheic dermatitis - Continue taking minocycline PO but increase dosage to 100 mg twice daily for 6 weeks Rx: Elidel 0.1% cream Apply to the affected areas twice daily as needed Warned of possible burning and stinging with initial application - Patient cautioned about blood vessel dilation while alcohol is in the system - Discussed FDA black box warning for possible increased risk of lymphoma 13 minutes of this 15 minute appointment were spent [id number] in counseling with this patient. Wediscussed pathophysiology, diagnosis, treatment, concerns, expectations and follow-up with regard tothe patient's diagnosis. I also addressed the patient's concerns and answered questions with regard to the above. Follow up: Return to clinic in 6 weeks for follow up of A, or sooner if needed. Patient scheduled upon exiting. Patient instructed to call with questions or concerns. I am documenting this encounter acting as the scribe for and in the presence of Dr. Zamudio.: Dipti Emerson, Clinical Scribe I performed the above scribed service and agree with the accuracy of the documentation in this encounter. Ni Zamudio MD Section of Dermatology [facility] documented in this encounter Plan of Treatment Upcoming Encounters Date Type Specialty Care Team Description 03/14/2022 Office Visit Dermatology [place] Edgar MD [facility] [address] DIANA CANAS-DERMAT [place], [place] [address] (Wo rk) documented as of this encounter Visit Diagnoses Diagnosis POD (perioral dermatitis) Rosacea Seborrheic dermatitis Seborrheic dermatitis, unspecified documented in this encounter Care Teams Agricultural Extension Agent Relationship Specialty Start Date End Date Leeanne Schultz MD PCP - General 10/28/13 [address] [place] [address] (work) documented as of this encounter
--- OUTSIDE RECORDS SUMMARY | 2021-11-23 01:53 | XMS_ITS | Encounter Summary ---
:1945 Author Organization [facility] [place] [address] Care Team Providers Name Role Phone Leeanne Schultz MD Primary Care Provider Reason for Referral Diagnostic Test (Routine) - Closed Specialty Diagnoses / Procedures Referred By Contact Refer red To Contact Radiology Diagnoses Melanoma Evy Gramajo MD [facility] [place] Rad Mri Procedures MRI Face With/WO Contrast MRI Orbit Face And Or Neck With/WO Contrast [facility] HEMATOLOGY/[place] [address] [place] [address] Referral ID Status Reason Start Date Expiration Date Visits V isits Requested Authorized [id number] Closed Specialty 04/11/2015 04/10/2016 1 1 Service Requested Encounter Details Date Type Department Care Team Description 04/06/2015 Orders Only Hematology and Evy Gramajo, Melanoma (Primary Dx) Oncology at [facility] [place] [address] HEMATOLOGY/ONCOLOG [phone] Y DEPT [place], [place] [address] Social History Tobacco Use Types [...] [facility] [address] DIANA CANAS-DERMAT [place], [place] [address] (Wo rk) documented as of this encounter Results MRI Face With/WO Contrast (04/15/2015 8:26 AM EST) Anatomical Region Laterality Modality Head Magnetic Resonance Specimen (Source) Anatomical Location Collection Method / Collectio n Time Received Time / Laterality Volume Impressions 04/15/2015 10:36 AM EST IMPRESSION: 1. ??No evidence for soft tissue mass or abnormal cranial nerve enhancement. 2. ??Signal alteration and enhancement w ithin the left C2 lamina without expansion. This of uncertain etiology an d was not definitively present on MRI performed in 2004. This could reflect al tered mechanics from left-sided facet arthropathy. No evidence for hypermetabo lic activity in this region on PET/CT. 3. 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 Narrative 04/15/2015 10:36 AM EST EXAMINATION: MRI FACE WITH/WO CONTRAST CLINICAL HISTORY: Hx of left preauricula r melanoma with worsening / persistent pain numbness in her left cheek jaw area . TECHNIQUE: MRI of the face was performed before and after the intravenous administration of 7 mL Gadavist COMPARISON: MRI cervical spine 5, PET-CT 02/04/2015 FINDINGS: There is susceptibility artifa ct in the oral cavity secondary to dental hardware/amalgam. Soft tissue scarring in the left preauri cular region from prior melanoma resection. ?? There is no evidence for r ecurrent soft tissue mass or cervical lymphadenopathy. Normal appearance of th e social service technician space, parotid glands and mandible. No evidence for abnormal enhan cement along the cranial nerve V. ??No abnormal soft tissue mass or enhancement within the right posterior tongue in area of FDG uptake on the PET-CT. The or bits are normal in appearance. Visualized intracranial contents are unr emarkable. There is abnormal signal and enhancement within the left C2 lamina wi thout expansion or associated soft tissue mass. The visualized regional bon e marrow is otherwise unremarkable in signal. Unchanged absent flow void within the le ft vertebral artery. Mild to moderate paranasal sinus mucosal thickening. Procedure Note Ya Burden MD - 04/15/2015Form atting of this note might be different from the original. EXAMINATION: MRI FACE WITH/WO CONTRAST CLINICAL HISTORY: Hx of left preauricula r melanoma with worsening / persistent pain numbness in her left cheek jaw area . TECHNIQUE: MRI of the face was performed before and after the intravenous administration of 7 mL Gadavist COMPARISON: MRI cervical spine 5, PET-CT 02/04/2015 FINDINGS: There is susceptibility artifa ct in the oral cavity secondary to dental hardware/amalgam. Soft tissue scarring in the left preauri cular region from prior melanoma resection. There is no evidence for recu rrent soft tissue mass or cervical lymphadenopathy. Normal appearance of th e social service technician space, parotid glands and mandible. No evidence for abnormal enhan cement along the cranial nerve V. No abnormal soft tissue mass or enhancement within the right posterior tongue in area of FDG uptake on the PET-CT. The or bits are normal in appearance. Visualized intracranial contents are unr emarkable. There is abnormal signal and enhancement within the left C2 lamina wi thout expansion or associated soft tissue mass. The visualized regional bon e marrow is otherwise unremarkable in signal. Unchanged absent flow void within the le ft vertebral artery. Mild to moderate paranasal sinus mucosal thickening. IMPRESSION IMPRESSION: 1. No evidence for soft tissue mass or a bnormal cranial nerve enhancement. 2. Signal alteration and enhancement wit hin the left C2 lamina without expansion. This of uncertain etiology an d was not definitively present on MRI performed in 2004. This could reflect al tered mechanics from left-sided facet arthropathy. No evidence for hypermetabo lic activity in this region on PET/CT. 3. 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 Evy Gramajo MD IMG MRI ORDERABLES documented in this encounter Visit Diagnoses Diagnosis Melanoma - Primary Melanoma of skin, site unspecified Melanoma Melanoma of skin, site unspecified documented in this encounter Care Teams Footwear Machinery Instructor Relationship Specialty Start Date End Date Leeanne Schultz MD PCP - General 6/25/14 [address] [place] [address] documented as of this encounter
--- OUTSIDE RECORDS SUMMARY | 2021-11-23 01:53 | XMS_ITS | Encounter Summary ---
:1945 Author Organization [facility] [place] [address] Care Team Providers Name Role Phone Leeanne Schultz MD Primary Care Provider Reason for Visit Reason Comments Skin Check Encounter Details Date Type Department Care Team Description 01/03/2017 Office Visit Dermatology at [facility], Cm ernst benign nevi; [place] FONSECA MD Seborrheic keratosis; [address] [facility] History of melanoma in situ; [place] [address] [address] [address] History of melanoma; [phone] [facility] History of basa l cell carcinoma; [facility] Neoplasm of uncertain behavior of skin; [place], [place] [address] Lesion of skin of face Social History Tobacco Use Types Packs/Day Years Used Date Former Smoker Smokeless Tobacco: Never Used Alcohol Use Standard Drinks/Week Comments Yes 7 (1 standard drink = 0.6 oz pure alcoho l) Sex Assigned at Date Recorded Female 10/02/2020 6:58 PM EDT documented as of this encounter Patient Instructions Patient InstructionsKeiry Chirinos - 01/03/2017 8:30 AM EDT Treatment and Wound Care Instructions [...] or concerns, please call the office at [phone]. If it is after 5PM, or a holiday or weekend, please call [phone] and ask for the Soda Fountain Clerk on-call. documented in this encounter Progress Notes Mónica Dozier LPN - 01/03/2017 8:30 AM EDT Images from the original note were not included. DERMATOLOGY ESTABLISHED PATIENT CLINIC NOTE Date of service: 01/03/2017 Leeanne Bush : 1945 Provider: Cm Kaminski MD PROBLEM: skin cancer screening SKIN HISTORY: - She has [...] back. ? August 2007, MIS treated in [place] ? Right lateral thigh. 6. 10/2006 Right [...] for a full skin exam. She has had some occasional scaly papules but is able to pick them off. She does monitor her skin but has not noticed any lesions of concern. She has identical twin brothers and one has had melanoma ADR: Allergies Allergen Reactions ??? Shellfish Derived [...] site. Significant skin findings: A. Trunk and extremities: Multiple 0.4-0.6cm brown papules with waxy, stuck-on appearance. Milia-like cysts, comedone-like openings and/or fissuring on dermoscopy. B. Trunk and extremities: 0.3-0.5cm, medium-brown, evenly-pigmented macules and papules. All with regular pigment pattern on dermoscopy. No pigmented lesions suspicious for melanoma. C. Left lateral cheek, left back, right lateral thigh, left upper arm, right forearm, left lateral arm: well healed scars s/p excision. D. Left mid back, left leg, right shoulder, left arm: well healed scars. E. Right infraorbital: 2mm pigmented macule, patient with history of melanoma. Photo taken and charted with patient consent ASSESSMENT/PLAN: A. Seborrheic keratoses (nonsymptomatic) Monitor for change or symptoms - Patient reassured of benign nature. - Advised patient to call if areas become inflamed or irritated. B. Benign appearing nevi with even pigmentation and well defined margins are noted (nonsymptomatic) - No lesions suspicious for melanoma identified on exam today. Will continue to monitor. - Discussed importance of sun protection, sun avoidance strategies, protective clothing, and sunscreen. I discussed warning signs for skin cancer, including the ABCDEs of melanoma. ?? - Patient reassured of benign nature. - Observe skin for change in color, size or character. Call if such occur. C. History of Melanoma & Melanoma In Situ - No cervical, supraclavicular or axillary lymphadenopathy noted. - No evidence of recurrence. - Continue to monitor. - Discussed importance of sun protection, sun avoidance strategies, protective clothing, and sunscreen. D. History of BCC - No evidence of recurrence. - Continue to monitor. E. Lentigo R/O Atypia - right infraorbital I discussed this condition with the patient and explored therapeutic options. I recommended we do a shave biopsy, patient is in agreement with this procedure. Procedure: Skin biopsy by shave technique Location: Right infraorbital Discussed indications for procedure and expectations including [...] were reviewed. Follow-up based on pathology results Pending pathology. Otherwise; RTC in 4 months for a full skin exam, sooner if needed. Patient will call to schedule appointment when she returns from [place]. Instructed to call if problems arise. Keiry Chirinos, Clinical Scribe - I am documenting this encounter acting as the scribe for and in the presence of Dr. Kaminski.: MÓNICA DOZIER LPN I performed the above scribed service and agree with the accuracy of the documentation in this encounter. Cm Kaminski MD Section of Dermatology [facility] documented in this encounter Plan of Treatment Upcoming Encounters Date Type Specialty Care Team Description 03/14/2022 Office Visit Dermatology [place] Edgar MD [facility] [address] DIANA CANAS-DERMAT [place] [id number] (Wo rk) documented as of this encounter Procedures Procedure Name Priority Date/Time Associated Diagnosis Comme nts SPECIMEN TO Routine 01/03/2017 9:42 AM Neoplasm of Results f or this PATHOLOGY (NON-OR) EDT uncertain behavior pro cedure are in of skin the results section. SURGICAL PATHOLOGY Routine 01/03/2017 9:42 AM Res ults for this REPORT EDT procedure are i n the results section. documented in this encounter Results Surgical Pathology Report (01/03/2017 9:42 AM EDT) Component Value Ref Test Analysis Performed At [facility] Method Time Signature Surgical [id number] ? Location: [facility] Report The signing pathologist has (i) examined the relevant preparation(s) for the [facility]ORIAL specimen(s) and (ii) rendered or confirmed the diagnosis(es) . HOSPITAL LABORATORY . ?Surgic al Pathology DIAGNOSIS Skin, right intfa orbital, shave ?? biopsy: - Lentigo Electronically signed by: ??Sacha Nunez MD Verified: ??01/09/2017 ?Dermatopathologist ADDITIONAL STUDIES Multiple step-leveled sections are examined. CLINICAL INFORMATION Specimen Submitted: A - Skin, right infra orbital, shave biopsy (1) Clinical History: 2 mm pigmented macule, patient with history of melanoma Clinical Diagnosis: Lentigo, rule out atypia SPECIMEN PROCESSING A - Labeled/Fixative: Right infraorbital, formalin. Quantity/Size: Single, 0.2 x 0.2 x 0.1 cm. Tissue Description: Shave of dark brown skin. Sections/Processing: (T1) ??ejr Specimen (Source) Anatomical Collection Method Collection Time Re ceived Time Location / / Volume Laterality 01/03/2017 9:42 AM EDT Cm Kaminski III, MD PATHOLOGY/CYTOLOGY ORDERABLE S Performing Organization Address City/[facility]/[place] [address] Specimen to Pathology (NON-OR) (01/03/2017 9:42 AM EDT) Specimen Anatomical Collection Method Collection Time Receive d Time (Source) Location / / Volume Laterality AP Specimen 01/03/2017 9:42 AM 7 1:19 EDT PM EDT Narrative [facility] - 01/03/2017 1:19 PM EDT Specimen requisition ordered. ??Separate Pathology report to follow Resulting Agency Comment Spec In Lab Cm Kaminski III, MD PATHOLOGY/CYTOLOGY ORDERABLE S Performing Organization Address City/[facility]/[place] [address] documented in this encounter Visit Diagnoses Diagnosis Multiple benign nevi Benign neoplasm of skin, site unspecifie d Seborrheic keratosis Other seborrheic keratosis History of melanoma in situ Personal history of malignant melanoma o f skin History of melanoma Personal history of malignant melanoma o f skin History of basal cell carcinoma Personal history of other malignant neop lasm of skin Neoplasm of uncertain behavior of skin Lesion of skin of face Unspecified disorder of skin and subcuta neous tissue documented in this encounter Care Teams Tree Climber Relationship Specialty Start Date End Date Leeanne Schultz MD PCP - General 10/28/13 [address] [place] [address] documented as of this encounter
--- OUTSIDE RECORDS SUMMARY | 2021-11-23 01:53 | XMS_ITS | Encounter Summary ---
:1945 Author Organization [facility] [place] [address] Care Team Providers Name Role Phone Leeanne Schultz MD Primary Care Provider Encounter Details Date Type Department Care Team Description 01/11/2018 Hospital Encounter [place] [address] Social History Tobacco Use Types Packs/Day [...] Visit Dermatology [place] Edgar MD [facility] [address] DIANA CANAS-DERMAT [place], [place] [address] (Wo rk) documented as of this encounter Procedures Procedure Name Priority Date/Time Associated Diagnosis Comme nts REQUEST FOR 2ND STAT 01/11/2018 12:25 AM Resul ts for this READ CT ABDOMEN AND EDT procedur e are in PELVIS the results section. documented in this encounter Results (ABNORMAL) Request For 2nd Read CT Abdomen [...] Olvera MD IMG OUTSIDE INTERPRETATION O RDERABLES documented in this encounter Visit Diagnoses Not on filedocumented in this encounter Care Teams Dredge Worker Relationship Specialty Start Date End Date Leeanne Schultz MD PCP - General 10/28/13 [address] [place] [address] documented as of this encounter
--- OUTSIDE RECORDS SUMMARY | 2021-11-23 01:53 | XMS_ITS | Encounter Summary ---
:1945 Author Organization [facility] [place] [address] Care Team Providers Name Role Phone Leeanne Schultz MD Primary Care Provider Encounter Details Date Type Department Care Team Description 01/09/2018 Hospital Encounter [place] [address] Social History Tobacco Use Types Packs/Day [...] Visit Dermatology [place] Edgar MD [facility] [address] DIANA CANAS-DERMAT [place], [place] [address] (Wo rk) documented as of this encounter Procedures Procedure Name Priority Date/Time Associated Diagnosis Comme nts FILM LIBRARY STAT 01/09/2018 12:00 AM Results for this STORAGE ONLY DX EDT procedure ar e in ABDOMEN the results section. documented in this encounter Results Film Library- Storage Only DX Abdomen (01/09/2018 12:00 AM EDT) Specimen (Source) Anatomical Location Collection Method / Collectio n Time Received Time / Laterality Volume Narrative RAD - 01/11/2018 12:13 AM EDT This exam is for storage only and is aut o-finalizing. Sylvia Olvera MD IMG FILM LIBRARY ORDERABLES Performing Organization Address City/State/ZIP Code Phon e Number [place], [place] documented in this encounter Visit Diagnoses Not on filedocumented in this encounter Care Teams Manager Manufacturing Relationship Specialty Start Date End Date Leeanne Schultz MD PCP - General 10/28/13 [address] [place] [address] documented as of this encounter
--- OUTSIDE RECORDS SUMMARY | 2021-11-23 01:53 | XMS_ITS | Encounter Summary ---
:1945 Author Organization [facility] [place] [address] Care Team Providers Name Role Phone Leeanne Schultz MD Primary Care Provider Reason for Visit Reason Comments Skin Lesion Encounter Details Date Type Department Care Team Description 09/10/2017 [facility] Cm [place] ([address], keratosis) [address] [place] [address] [facility] [place], [place] [address] Social History Tobacco Use Types Packs/Day Years Used Date Former Smoker Smokeless Tobacco: Never Used Alcohol Use Standard Drinks/Week Comments Yes 7 (1 standard drink = 0.6 oz pure alcoho l) Sex Assigned at Date Recorded Female 10/02/2020 6:58 PM EDT documented as of this encounter Progress Notes Mónica Dozier LPN - 09/10/2017 9:45 AM EDT Images from the original note were not included. DERMATOLOGY ESTABLISHED PATIENT CLINIC NOTE Date of service: 09/10/2017 Leeanne Bush : 1945 Provider: Cm Diop MD PROBLEM: pink scaly patch on lower leg SKIN HISTORY: She has family history of melanoma in [...] Bush is a 71 y.o. year old female with a history of a pink scaly patch on the right calf.She noticed it 2 weeks ago when they got back from [place]. It is asymptomatic. She is having knee surgery at the end of October, but may be moved up if they get a cancellation.. ADR: Allergies Allergen Reactions ??? Shellfish Derived [...] complaints EXAM General: NAD, pleasant, cooperative Skin: a focused exam of her lower right leg. Significant skin findings: A. 0.2-0.3cm scaly irregular pink papule(s) on the right lower leg x 1 Images Photo(s) taken by Lexie Diop MD. with patient's verbal permission for use for clinical and education purposes. Figure A ASSESSMENT/PLAN: A. Actinic Keratosis - I discussed this condition with the patient and explored therapeutic options.I recommended this be treated with LN2, patient is in agreement to this treatment plan, but elects to defer until next visit after her knee surgery - if it persists we will check the site in 6 months If it gets worse or bleeds, she will call for earlier evaluation RTC - 6 months for a full skin exam or sooner as needed I am documenting this encounter acting as the scribe for and in the presence of Dr. Diop.: MÓNICA DOZIER LPN I, Miguel Angel Evans, have performed the documentation for this encounter in the presence of and acting as a scribe for CM DIOP III, MD. I performed the above scribed service and agree with the accuracy of the documentation in this encounter. Cm Diop MD Section of Dermatology [facility] documented in this encounter Plan of Treatment Upcoming Encounters Date Type Specialty Care Team Description 03/14/2022 Office Visit Dermatology [place] Edgar MD [facility] [address] CANAS[address]DERMAT [place], [place] [address] (Wo rk) documented as of this encounter Visit Diagnoses Diagnosis AK (actinic keratosis) Actinic keratosis documented in this encounter Care Teams Student Development Specialist Relationship Specialty Start Date End Date Leeanne Schultz MD PCP - General 10/28/13 [address] [place] [address] documented as of this encounter
--- OUTSIDE RECORDS SUMMARY | 2021-11-23 01:53 | XMS_ITS | Encounter Summary ---
:1945 Author Organization [facility] [address] Care Team Providers Name Role Phone Leeanne Schultz MD Primary Care Provider Reason for Visit Reason Comments Travel Consult Encounter Details Date Type Department Care Team Description 12/19/2015 Office Visit Infectious Disease at [facility] or prophylactic vaccination and inoculation against viral hepatitis; [facility]ong Counseling about travel; [facility] Motion si ckness, initial encounter; [place] [address] Social History Tobacco Use Types Packs/Day Years Used Date Former Smoker Smokeless Tobacco: Never Used Alcohol Use Standard Drinks/Week Comments Yes 7 (1 standard drink = 0.6 oz pure alcoho l) Sex Assigned at Date Recorded Female 10/02/2020 6:58 PM EDT documented as of this encounter Last Filed Vital Signs Vital Sign Reading Time Taken Comments Blood Pressure 140/76 12/19/2015 1:59 PM EDT Pulse 70 12/19/2015 1:59 PM EDT Temperature 36.4 ??C (97.5 ??F) 12/19/2015 1:59 PM EDT Respiratory Rate 16 12/19/2015 1:59 PM EDT Oxygen Saturation - - Inhaled Oxygen Concentration - - Weight - - Height - - Body Mass Index - - documented in this encounter Progress Notes Arlette Perez RN - 12/19/2015 2:00 PM EDT Adult Travel Clinic Reason for Visit: Leeanne Bush is a 70 y.o. female patient who comes to travel clinic today for pre-travel evaluation, vaccination and traveler's health education. Trip Details: Destination countries (list from first to last): Cruise from [place] to [place] via [facility].Ports of call in [facility], [facility], [facility], [facility], [facility] then to [place], [place]. Departure date: 01/19/16 Length of trip: 2 weeks Purpose of travel: vacation Type of environment: urban Accommodations: cruise ship cabin Medical History: Medical problems: Patient Active Problem List Diagnosis Code ??? Basal cell carcinoma C44.91 ??? Personal history of malignant melanoma of skin Z85.820 ??? Melanoma C43.9 ??? Health care maintenance Z00.00 Current Outpatient Prescriptions Medication Sig Dispense Refill ??? minocycline (MINOCIN;DYNACIN) 50 mg Capsule Take [...] No current facility-administered medications for this visit. Immunosuppression: none History of adverse vaccine reactions: no History of latex, egg or beesting allergy: no Patient advised to carry all medications in carry on luggage. Travel Health and Safety Issues: A discussion of travel health hazards and safety issues was done, including the following topics: traffic-accidents (alcohol, seatbelts), crime, alcohol related issues, sun exposure/heat illness, Schistosomiasis and other fresh water exposures, rabies, HIV infections, Hepatitis and other STD's, control, TB, Health Insurance coverage/[employer]. Discussed food and water precautions and patient handout provided. The following strategies were recommended for the management of traveler's diarrhea according to severity: ?? For treatment of mild diarrhea: hydration and over the counter antidiarrheal recommended. ?? For treatment of diarrhea accompanied by fever or systemic illness: hydration and empiric treatment with antibiotic recommended. A prescription for Ciprofloxacin 500 mg twice daily x 3 days sent to pharmacy. ?? For severe or bloody diarrhea, or diarrhea accompanied by vomiting: patient advised to seek medical treatment. Vector-borne Disease Prevention Discussed insect bite prevention to reduce risk of malaria, dengue, chikungunya and other insect borne illnesses. Handout given. Discussed Zika virus and importance of mosquito precautions. Malaria Risk: Malaria risk in country (ies) visited, but not high enough risk on this itinerary to warrant chemoprophylaxis. Altitude: This trip does not involve high altitude. Immunizations Immunization History Administered Date(s) Administered ??? Influenza Vaccine w/Preservative, Split 01/05/2010, 01/21/2012, 02/08/2015 ??? Influenza Vaccine, Whole 02/19/2002, 02/20/2005, 02/27/2006 ??? Pneumococcal Polyvalent 23 01/12/2000, 09/25/2012 ??? Td, adult 11/20/1999 ??? Tdap Vaccine 01/03/2010, 09/25/2012 ??? Zoster Vaccine, Live 04/21/2007 Immunizations given today- hepatitis A #1. Traveler is up to date with routine vaccinations including influenza and Tdap. Discussed typhoid vaccine and disease risk. Risk is very minimal as almost all meals will be aboard ship. Traveler will not get typhoid vaccine but will practice meticulous food and water precautions. Traveler reports that she is prone to motion sickness. She requests scopolamine patches for this cruise. Prescription for six patches sent to pharmacy with five to cover two week trip and one for traveler to try over a weekend before trip for trial of med effects and drowsiness as a side effect. Rabies- discussed animal avoidance, wound care and need for post-exposure prophylaxis. Follow-up Recommendations: Traveler will return to PCP in six months for second hepatitis A vaccine. Patient advised to call travel clinic if they return from trip with any illness. Time spent in travel counselin minutes. Vaccine information sheets given. documented in this encounter Plan of Treatment Upcoming Encounters Date Type Specialty Care Team Description 03/14/2022 Office Visit Dermatology [place] Edgar MD [facility] [address] [place], [place] [address] (Wo rk) documented as of this encounter Visit Diagnoses Diagnosis Need for prophylactic vaccination and in oculation against viral hepatitis Counseling about travel Other specified counseling Motion sickness, initial encounter H/O motion sickness Personal history of other specified dise ases documented in this encounter Care Teams Commissioned Sales Associate Relationship Specialty Start Date End Date Leeanne Schultz MD PCP - General 10/28/13 [address] [place] [address] documented as of this encounter
--- OUTSIDE RECORDS SUMMARY | 2021-11-23 01:53 | XMS_ITS | Encounter Summary ---
:1945 Author Organization [facility] [place] [address] Care Team Providers Name Role Phone Leeanne Schultz MD Primary Care Provider Reason for Referral MRI/CAT Scan (Routine) - Closed Specialty Diagnoses / Procedures Referred By Contact Refer red To Contact Radiology Diagnoses Melanoma Evy Gramajo MD [facility] Rad Ct Scan Procedures PET/CT Standard Plus Extremities and Head [facility] HEMATOLOGY/[place] [address] [place] [address] Referral ID Status Reason Start Date Expiration Date Visits Requ ested Visits Authorized [id number] Closed 01/26/2015 01/26/2016 1 1 Encounter Details Date Type Department Care Team Description 01/24/2015 Orders Only Hematology and Evy Gramajo Melanoma (Primary Dx) Oncology at [facility] [place] [address] HEMATOLOGY/ONCOLOG [phone] Y DEPT [place], [place] [address] Social History Tobacco Use Types [...] Visit Dermatology [place] Edgar MD [facility] ER [address] [place], [place] [address] (Wo rk) documented as of this encounter Results (ABNORMAL) PET/CT Standard Plus Extremities and Head (02/04/2015 9:52 AM EDT) Anatomical Region Laterality Modality Positron Emission To mography (PET) Specimen (Source) Anatomical Location Collection Method / Collectio n Time Received Time / Laterality Volume Impressions 02/04/2015 2:04 PM EDT IMPRESSION: 1. ??Focus of FDG activity at the food safety field specialist ior tongue. This could be due to [...] calculus. Thank you for referring this patient [facility]. This report was reviewed by Mehnaz Saenz at 02/04/2015 2:04 PM Narrative 02/04/2015 2:04 PM EDT EXAMINATION: PET/CT STANDARD WITH EXTREMITIES AND HEAD CLINICAL HISTORY: melanoma TECHNIQUE: Following IV injection of 18- nybwpt-0-xpeflambukyr (FDG) a standard uptake of approximately 60 [...] melanoma TECHNIQUE: Following IV injection of 18- oiwfbs-3-iigfgvlzazwi (FDG) a standard uptake of approximately 60 [...] calculus. Thank you for referring this patient [facility]. This report was reviewed by Mehnaz Saenz at 02/04/2015 2:04 PM Evy Gramajo MD IMG PET ORDERABLES documented in this encounter Visit Diagnoses Diagnosis Melanoma - Primary Melanoma of skin, site unspecified Melanoma Melanoma of skin, site unspecified documented in this encounter Care Teams Airplane Electrical Repairer Relationship Specialty Start Date End Date Leeanne Schultz MD PCP - General 10/28/13 [address] [place] [address] documented as of this encounter
--- OUTSIDE RECORDS SUMMARY | 2021-11-23 01:53 | XMS_ITS | Encounter Summary ---
:1945 Author Organization [facility] [place] [address] Care Team Providers Name Role Phone Leeanne Schultz MD Primary Care Provider Reason for Visit Reason Onset Date Comments Other 07/29/2015 Telephone Encounter Details Date Type Department Care Team Description 07/29/2015 Telephone Dermatology at [place] Lucas MD Other (Telephone) [facility] [address] [facility] [place] [address] [place] [address] [phone] (Wo rk) Social History Tobacco Use Types Packs/Day Years Used Date Former Smoker Smokeless Tobacco: Never Used Alcohol Use Standard Drinks/Week Comments Yes 7 (1 standard drink = 0.6 oz pure alcoho l) Sex Assigned at Date Recorded Female 10/02/2020 6:58 PM EDT documented as of this encounter Miscellaneous Notes Telephone Encounter - Melani Snyder - 07/29/2015 5:19 PM EDT Called patient back and left a VM. Recommended she see her provider in [place] since it was hard to give her a dx with out physically seeing her. Patient instructed to call with questions or concerns -patient will be in area and has an appointment with DA on 08/12/2015 Telephone Encounter - Franck Magdiel - 07/29/2015 2:27 PM EDT Patient says she has big red mustache, claims Dr. Zamudio stated it was a form of dermatitis last she saw her. Patient has been in [place] for a long time, patient will not be back until after the 8th ofApril. Patient was prescribed beta methadone by a GIM in [place] and it helped for a little while but is no longer working. Patient stated she used hydrocortisone and it is no longer effective. documented in this encounter Plan of Treatment Upcoming Encounters Date Type Specialty Care Team Description 03/14/2022 Office Visit Dermatology [place] Edgar MD [facility] [address] [place], [place] [address] (Wo rk) documented as of this encounter Visit Diagnoses Not on filedocumented in this encounter Care Teams Floatlight Loading Supervisor Relationship Specialty Start Date End Date Leeanne Schultz MD PCP - General 10/28/13 [address] [place] [address] documented as of this encounter
--- OUTSIDE RECORDS SUMMARY | 2021-11-23 01:53 | XMS_ITS | Encounter Summary ---
:1945 Author Organization [facility] [place] [address] Care Team Providers Name Role Phone Leeanne Schultz MD Primary Care Provider Encounter Details Date Type Department Care Team Description 04/06/2015 Orders Only Hematology and Oncol ogy at [facility] [place] [address] Social History Tobacco Use Types Packs/Day Years Used Date Former Smoker Smokeless Tobacco: Never Used Alcohol Use Standard Drinks/Week Comments Yes 7 (1 standard drink = 0.6 oz pure alcoho l) Sex Assigned at Date Recorded Female 10/02/2020 6:58 PM EDT documented as of this encounter Plan of Treatment Upcoming Encounters Date Type Specialty Care Team Description 03/14/2022 Office Visit Dermatology [place] Egdar MD [facility] ER [address], [place] [address] (Wo rk) documented as of this encounter Visit Diagnoses Not on filedocumented in this encounter Care Teams Consultant Rn Relationship Specialty Start Date End Date Leeanne Schultz MD PCP - General 10/28/13 [address] [place], [place] [address] documented as of this encounter
--- OUTSIDE RECORDS SUMMARY | 2021-11-23 01:53 | XMS_ITS | Encounter Summary ---
:1945 Author Organization [facility] [place] [address] Care Team Providers Name Role Phone Leeanne Schultz MD Primary Care Provider Reason for Visit Reason Comments Follow-up Encounter Details Date Type Department Care Team Description 04/15/2015 Office Visit Hematology and Rox, Evy, Melanoma; [facility]cology at [facility] Numbness and tingling of left side of fa ce [facility] [address] [place] HEMATOLOGY/ONCOLOG [address] Y DEPT [phone] [place], [place] [address] Social History Tobacco Use Types Packs/Day Years Used Date Former Smoker Smokeless Tobacco: Never Used Alcohol Use Standard Drinks/Week Comments Yes 7 (1 standard drink = 0.6 oz pure alcoho l) Sex Assigned at Date Recorded Female 10/02/2020 6:58 PM EDT documented as of this encounter Last Filed Vital Signs Vital Sign Reading Time Taken Comments Blood Pressure - - Pulse 84 04/15/2015 9:34 AM EST Temperature 36.7 ??C (98.1 ??F) 04/15/2015 9:34 AM EST Respiratory Rate 16 04/15/2015 9:34 AM EST Oxygen Saturation 99% 04/15/2015 9:34 AM EST Inhaled Oxygen Concentration - - Weight 75.7 kg (166 lb 14.2 oz) 04/15/2015 9:34 AM EST Height 168.3 cm (5' 6.26) 04/15/2015 9:34 AM EST Body Mass Index 26.73 04/15/2015 9:34 AM EST documented in this encounter Progress Notes Evy Gramajo MD - 04/15/2015 8:24 PM EST Images from the original note were not included. [facility] CLINIC NOTE REFERING PHYSICIAN: Dr. Green DIAGNOSIS: Multiple resected thin melanoma recently in November 2014 PATH: T1a (0.25mm) left lateral arm melanoma on 10/15/2014-> WLE on 11/19/2014 T1a (0.18 mm) left upper arm on 06/30/2014 T1a (0.24mm) right forearm CURRENT TX: Active surveillance after wide local excision left upper arm lesion on 11/19/2014 ONCOLOGIC HX: 1998: Left preauricular skin lesion resected-> benign On 08/31/1999 recurrence in same area, T2 (1.24 mm) N0 treated with wide local excision with sentinelnode biopsy done in [place] In 2008 resected right lateral thigh thin melanoma (less than 1 mm according to the patient) T1a (0.24mm) right forearm T1a (0.18 mm) left upper arm on 06/30/2014 T1a (0.25mm) left lateral arm melanoma on 10/15/2014-> WLE on 11/19/2014 HPI: Mrs. Bush is 69 years old lady with extensive history of multiple thin melanoma referred to medical oncology clinic to discuss treatment/follow-up options. INTERVAL HISTORY: This is an extra visit because of recently worsened left face/cheek/mandible tingling/numbness. Although upon today's presentation her symptom has subsided significantly compared to 2 weeks ago. Otherwise no other symptoms including pain. She has not seen any obvious vesicles suggesting shingles. Since her last visit she was also seen by local ENT doctor for her incidentally found right base of tongue on hypermetabolic lesion. No obvious visible palpable lesion was found even with endoscopic exam. She denies any pain or dysphagia in her tongue. She denies any change in her daily activity. REVIEW OF SYSTEMS: Constitutional: No weight loss, no fever, no fatigue, No dizziness. No headache. Eyes: Negative, no visual change ENT: No hearing change, no dysphagia Cardiovascular: Negative Respiratory: Negative Gastrointestinal: Negative, Genitourinary: Negative Musculoskeletal: No new joint pain Skin: Negative Neurological: the level of On and off tingling sensation on her left face to chin is her baseline, no focal weakness Psychiatric: stable mood MEDS: Albuterol (Refill), Estradiol, amLODIPine, buPROPion, citalopram, clonazePAM, levothyroxine, tretinoin, and zolpidem PHYSICAL EXAM: PS=0 General: not in acute distress. in good mood and spirits Pulse 84 Temp(Src) 36.7 ??C (98.1 ??F) (Temporal) Resp 16 Ht 168.3 cm (5' 6.26) Wt 75.7 kg (166 lb 14.2 oz) BMI 26.73 kg/m2 SpO2 99% Eyes: Not icteric, not injected Oral: clear. Neck: Supple. No obvious palpable lymphadenopathy. Well-healed surgical scar No obvious palpable mass on her tongue, intact, movement Lungs: Bilaterally clear to auscultation, No wheezing, No crackles Heart: Regular rate and rhythm. Abdomen: Soft, no tenderness, no mass, normal active bowel sounds. Extremities: No edema. Well-healed surgical scar Skin: Unchanged subcutaneous nodules on her back and left upper back, according to the patient they have been there for a long time without any change, corresponding to a PET/CT scan findings Neuro: No focal weakness, no obvious facial droop, cranial nerve exam is unremarkable LABS: No labs today IMAGING STUDIES: Facial MRI on 04/15/2015 1. No evidence for soft tissue mass or abnormal cranial nerve enhancement. 2. Signal alteration and enhancement within the left C2 lamina without expansion. This of uncertain etiology and was not definitively present on MRI performed in 2004. This could reflect altered mechanics from left-sided facet arthropathy. No evidence for hypermetabolic activity in this region on PET/CT. 3. 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 PET/CT on 02/04/2015 1. Focus of FDG activity at the posterior tongue. This could be due to inflammation or malignancy. Correlation with clinical findings is required. Direct visualization is recommended. UNEXPECTED FINDING. 2. CT visualized subcutaneous soft tissue densities at the level of T3 spinous process and left posterior lateral chest. These lesions may be below the resolution of PET. Correlation with the patient'sprior surgical history is required. 3. Incidental CT finding of horseshoe kidney and nonobstructing renal calculus. ASSESSMENT AND PLAN: History of multiple resected thin melanoma. Given negative MRI findings, we decided to continue to monitor that. I reviewed the MRI by myself with radiologist. Possible trial with gabapentin was proposed that after discussion she decided not to proceed given improving symptom without specific intervention. She is going to [place] until the end of July during winter season. She will continue to follow-up with dermatology team. Pt was instructed to call our clinic with any new symptom or any questions. Evy Gramajo MD documented in this encounter Plan of Treatment Upcoming Encounters Date Type Specialty Care Team Description 03/14/2022 Office Visit Dermatology [place] Edgar MD [facility] ER [address] [place], [place] [address] (Wo rk) documented as of this encounter Visit Diagnoses Diagnosis Melanoma Melanoma of skin, site unspecified Numbness and tingling of left side of fa ce documented in this encounter Care Teams Wet Silk Hanger Relationship Specialty Start Date End Date Leeanne Schultz MD PCP - General 10/28/13 [address] [place] [address] documented as of this encounter
--- OUTSIDE RECORDS SUMMARY | 2021-11-23 01:53 | XMS_ITS | Encounter Summary ---
:1945 Author Organization [facility] [place] [address] Care Team Providers Name Role Phone Leeanne Schultz MD Primary Care Provider Encounter Details Date Type Department Care Team Description 10/24/2015 Telephone Dermatology at [facility] Ni Zamudio MD [address] [facility] [address] [address] [phone] [place] [address] (Wo rk) Social History Tobacco Use Types Packs/Day Years Used Date Former Smoker Smokeless Tobacco: Never Used Alcohol Use Standard Drinks/Week Comments Yes 7 (1 standard drink = 0.6 oz pure alcoho l) Sex Assigned at Date Recorded Female 10/02/2020 6:58 PM EDT documented as of this encounter Miscellaneous Notes Telephone Encounter - Magdiel Juárez - 10/24/2015 9:09 AM EDT had surgery - facial rash is improving - is unable to make this appointment. documented in this encounter Plan of Treatment Upcoming Encounters Date Type Specialty Care Team Description 03/14/2022 Office Visit Dermatology [place] Edgar MD [facility] [address] [place], [place] [address] (Wo rk) documented as of this encounter Visit Diagnoses Not on filedocumented in this encounter Care Teams Agricultural Labor Camp Manager Relationship Specialty Start Date End Date Leeanne Scuhltz MD PCP - General 10/28/13 [address] [place] [address] documented as of this encounter
--- OUTSIDE RECORDS SUMMARY | 2021-11-23 01:53 | XMS_ITS | Encounter Summary ---
:1945 Author Organization [facility] [place] [address] Care Team Providers Name Role Phone Leeanne Schultz MD Primary Care Provider Encounter Details Date Type Department Care Team Description 11/25/2014 Telephone Dermatology at [facility] Ni Zamudio MD [address] [facility] [place] [address] [facility] [phone] [place] [address] (Wo rk) Social History Tobacco Use Types Packs/Day Years Used Date Former Smoker Smokeless Tobacco: Never Used Alcohol Use Standard Drinks/Week Comments Yes 7 (1 standard drink = 0.6 oz pure alcoho l) Sex Assigned at Date Recorded Female 10/02/2020 6:58 PM EDT documented as of this encounter Miscellaneous Notes Telephone Encounter - Ni Zamudio MD - 11/26/2014 12:25 PM EDT Discussed with patient pathology reports. Max depth of invasion 0.25mm. Patient in understanding. Telephone Encounter - Melani Snyder - 11/25/2014 3:24 PM EDT Called patient regarding biopsy results. Discussed and reviewed pathology in detail. I told her Dr. Zamudio would speak to her tomorrow when she was in clinic to reassure her that her melanoma was excised and margins were clear, removal of her lymph nodes were not needed. Telephone Encounter - Humberto Gill - 11/25/2014 1:44 PM EDT Leeanne called wanting to get her pathology results from her surgery. I read her the text of the letter which was sent, and she was happy to hear the good news, but she would like to discuss the details with a nurse. Please give her a call back at the cell number listed. Humberto Herbert documented in this encounter Plan of Treatment Upcoming Encounters Date Type Specialty Care Team Description 03/14/2022 Office Visit Dermatology [place] Edgar MD [facility] [address] [place], [place] [address] (Wo rk) documented as of this encounter Visit Diagnoses Not on filedocumented in this encounter Care Teams Palliative Senior Np Relationship Specialty Start Date End Date Leeanne Schultz MD PCP - General 10/28/13 [address] [place] [address] documented as of this encounter
--- OUTSIDE RECORDS SUMMARY | 2021-11-23 01:53 | XMS_ITS | Encounter Summary ---
:1945 Author Organization [facility] [place] [address] Care Team Providers Name Role Phone Leeanne Schultz MD Primary Care Provider Encounter Details Date Type Department Care Team Description 10/06/2015 Telephone Dermatology at [facility] Ni Zamudio MD [address] [facility] [address] [facility] [phone] [place], [place] [address] (Wo rk) Social History Tobacco Use Types Packs/Day Years Used Date Former Smoker Smokeless Tobacco: Never Used Alcohol Use Standard Drinks/Week Comments Yes 7 (1 standard drink = 0.6 oz pure alcoho l) Sex Assigned at Date Recorded Female 10/02/2020 6:58 PM EDT documented as of this encounter Miscellaneous Notes Telephone Encounter - Sarah Toure LPN - 10/06/2015 2:48 PM EDT Opened in error documented in this encounter Plan of Treatment Upcoming Encounters Date Type Specialty Care Team Description 03/14/2022 Office Visit Dermatology [place] Edgar MD [facility] ER [address] D[place], [place] [address] (Wo rk) documented as of this encounter Visit Diagnoses Not on filedocumented in this encounter Care Teams Fire Sprinkler Inspector Relationship Specialty Start Date End Date Leeanne Schultz MD PCP - General 10/28/13 [address] [place] [address] documented as of this encounter
--- OUTSIDE RECORDS SUMMARY | 2021-11-23 01:53 | XMS_ITS | Encounter Summary ---
:1945 Author Organization [facility] [address] Care Team Providers Name Role Phone Leeanne Schultz MD Primary Care Provider Reason for Visit Reason Comments Follow-up Encounter Details Date Type Department Care Team Description 02/04/2015 Office Visit Hematology and Oncology at Marni Sharp APRN [facility] DR [place]EMATOLOGY[place] [address] Melanoma [facility] Evy Gramajo MD [facility] HEMATOLOGY/[place] [address] [facility] Kwasi fernán[place] [address] Social History Tobacco Use Types Packs/Day Years Used Date Former Smoker Smokeless Tobacco: Never Used Alcohol Use Standard Drinks/Week Comments Yes 7 (1 standard drink = 0.6 oz pure alcoho l) Sex Assigned at Date Recorded Female 10/02/2020 6:58 PM EDT documented as of this encounter Last Filed Vital Signs Vital Sign Reading Time Taken Comments Blood Pressure 153/73 02/04/2015 1:20 PM EDT Pulse 93 02/04/2015 1:20 PM EDT Temperature 37.2 ??C (99 ??F) 02/04/2015 1:20 PM EDT Respiratory Rate 18 02/04/2015 1:20 PM EDT Oxygen Saturation 99% 02/04/2015 1:20 PM EDT Inhaled Oxygen Concentration - - Weight 72.8 kg (160 lb 7.9 oz) 02/04/2015 1:20 PM EDT Height 168.9 cm (5' 6.5) 02/04/2015 1:20 PM EDT Body Mass Index 25.52 02/04/2015 1:20 PM EDT documented in this encounter Progress Notes Evy Gramajo MD - 02/08/2015 9:55 AM EDT Images from the original note were not included. [facility] CLIN[facility] NOTE REFERING PHYSICIAN: Dr. Green DIAGNOSIS: Multiple resected thin melanoma recently in November 2014 PATH: T1a (0.25mm) left lateral arm melanoma on 10/15/2014-> WLE on 11/19/2014 T1a (0.18 mm) left upper arm on 06/30/2014 T1a (0.24mm) right forearm CURRENT TX: Active surveillance after wide local excision left upper arm lesion on 11/19/2014 ONCOLOGIC HX: 1999: Left preauricular skin lesion resected-> benign On 08/31/1999 recurrence in same area, T2 (1.24 mm) N0 treated with wide local excision with sentinelnode biopsy done in [place] In 2008 resected right lateral thigh thin melanoma (less than 1 mm according to the patient) T1a (0.24mm) right forearm T1a (0.18 mm) left upper arm on 06/30/2014 T1a (0.25mm) left lateral arm melanoma on 10/15/2014-> WLE on 11/19/2014 HPI: Mrs. Bush is 69 years old lady with extensive history of multiple thin melanoma referred to medical oncology clinic to discuss treatment/follow-up options. Upon today's visit, clinically she is doing fairly well except 6 weeks of on and off tingling/numb sensation on her left cheek to jaw, chin area. Otherwise no headache, no hearing change, no facial droop. She denies any recent change in her daily activity. REVIEW OF SYSTEMS: Constitutional: No weight loss, no fever, no fatigue, No dizziness. No headache. Eyes: Negative, no visual change ENT: No hearing change, no dysphagia Cardiovascular: Negative Respiratory: Negative Gastrointestinal: Negative, Genitourinary: Negative Musculoskeletal: No new joint pain Skin: Negative Neurological: On and off tingling sensation on her left face to chin for last 6- 8 weeks, no focal weakness Psychiatric: stable mood PAST MEDICAL HISTORY: Past Medical History Diagnosis Date ??? Melanoma ??? Basal cell carcinoma Past Surgical History Procedure Laterality Date ??? Created by interface LES(LUMBAR EPIDURAL STERIOD INJECTION-CAUDAL SACRAL Procedure Date: 05/08/2005 ??? Created by interface LES(LUMBAR EPIDURAL STERIOD INJECTION-CAUDAL SACRAL Procedure Date: 04/19/2005 ??? Created by interface URETHRAL SUSPENSION,SLING\FASCIA OR SYNTHETIC / FASCIA Procedure Date: 03/15/2006 MEDS: Albuterol (Refill), Estradiol, amLODIPine, buPROPion, celecoxib, citalopram, clonazePAM, levothyroxine, tretinoin, and zolpidem ALLERGY: Allergies Allergen Reactions ??? Shellfish Derived Hives and Other (See Comments) Tongue swelling too ??? Morphine Sulfate Unknown- during surgery states not life threatening. Heart felt like it was going to burst states. ??? Nitrofurantoin Monohyd/M-Cryst Nausea And Vomiting FAMILY HX: No family history on file. SOCIAL HX: History Social History ??? Marital Status: Spouse Name: N/A Number of Children: N/A ??? Years of Education: N/A Occupational History ??? Not on file. Social History Main Topics ??? Smoking status: Former Smoker ??? Smokeless tobacco: Never Used ??? Alcohol Use: 4.2 - 8.4 oz/week 7-14 Glasses of wine per week ??? Drug Use: No ??? Sexual Activity: Not on file Other Topics Concern ??? Not on file Social History Narrative PHYSICAL EXAM: PS=0 General: not in acute distress. in good mood and spirits BP 153/73 mmHg Pulse 93 Temp(Src) 37.2 ??C (99 ??F) (Temporal) Resp 18 Ht 168.9 cm (5' 6.5) Wt 72.8 kg (160 lb 7.9 oz) BMI 25.52 kg/m2 SpO2 99% Eyes: Not icteric, not injected Oral: clear. Neck: Supple. No obvious palpable lymphadenopathy. Well-healed surgical scar No obvious palpable mass on her tongue, intact, movement Lungs: Bilaterally clear to auscultation, No wheezing, No crackles Heart: Regular rate and rhythm. Abdomen: Soft, no tenderness, no mass, normal active bowel sounds. Extremities: No edema. Well-healed surgical scar Skin: Several subcutaneous nodules on her back and left upper back, according to the patient they have been there for a long time without any change, corresponding to a PET/CT scan findings Neuro: No focal weakness LABS: Unremarkable CBCD and CMP TSH 5.04 Free T4 1.09 LDH 167 IMAGING STUDIES: PET/CT on 02/04/2015 1. Focus of FDG [...] PLAN: History of multiple resected thin melanoma. The significance and natural course of thin melanoma were reviewed. The role and concept of active surveillance were discussed with the patient in detail. The importance of dermatology follow-up was also emphasized. Regarding her numbness on her left mandible/chin area, no obvious PET/CT correlation was found. If this gets persistent or worsening, I would consider MRI. Incidentally found uptake at the right base of tongue, no obvious mass was appreciated on physical exam. Patient denies any significant dysphagia. I will make a referral to ENT for direct visualization. Otherwise she will continue to follow-up with dermatologists. Pt was instructed to call our clinic with any new symptom or any questions. Evy Gramajo MD documented in this encounter Plan of Treatment Upcoming Encounters Date Type Specialty Care Team Description 03/14/2022 Office Visit Dermatology [place] Edgar MD [facility] [address] DIANA CANAS-DERMAT [place], [place] [address] (Wo rk) documented as of this encounter Visit Diagnoses Diagnosis Melanoma Melanoma of skin, site unspecified documented in this encounter Care Teams Street Photographer Relationship Specialty Start Date End Date Leeanne Schultz MD PCP - General 10/28/13 [address] [place] [address] documented as of this encounter
--- OUTSIDE RECORDS SUMMARY | 2021-11-23 01:53 | XMS_ITS | Encounter Summary ---
:1945 Author Organization [place] [address] Care Team Providers Name Role Phone Leeanne Schultz MD Primary Care Provider Reason for Visit Reason Onset Date Comments Medication Refill 04/26/2015 Encounter Details Date Type Department Care Team Description 04/26/2015 Refill Dermatology at [facility] Ni Zamudio MD Skin lesion [address] [facility] [address] [facility] [phone] [place], [place] [address] (Wo rk) Social History Tobacco [...] Office Visit Dermatology [place] Edgar MD [facility] [address] D[place], [place] [address] (Wo rk) documented as of this encounter Visit Diagnoses Diagnosis Skin lesion Unspecified disorder of skin and subcuta neous tissue documented in this encounter Care Teams Soaking Room Operator Relationship Specialty Start Date End Date Berrian, Leeanne M, MD PCP - General 10/28/13 [address] [place] [address] documented as of this encounter
--- OUTSIDE RECORDS SUMMARY | 2021-11-23 01:53 | XMS_ITS | Encounter Summary ---
:1945 Author Organization [facility] [place] [address] Care Team Providers Name Role Phone Leeanne Schultz MD Primary Care Provider Reason for Visit Reason Onset Date Comments Other 04/04/2015 telephone Encounter Details Date Type Department Care Team Description 04/04/2015 Telephone Dermatology at [place] Lucas MD Other (telephone) [facility] [address] [facility] [place] [address] [place] [address] [phone] (Wo rk) Social History Tobacco Use Types Packs/Day Years Used Date Former Smoker Smokeless Tobacco: Never Used Alcohol Use Standard Drinks/Week Comments Yes 7 (1 standard drink = 0.6 oz pure alcoho l) Sex Assigned at Date Recorded Female 10/02/2020 6:58 PM EDT documented as of this encounter Miscellaneous Notes Telephone Encounter - Melani Snyder - 04/06/2015 12:25 PM EST Spoke to patient. She has had her PET scan as well as appointment with Dr. Joel. She made the comment that if the nerve pain continues she should see a neurologist. I recommended she have him send a referral to the appropriate Neurologist. Encouraged her to call should she have questions or concerns. Telephone Encounter - IglesiainderEjAva - 04/04/2015 1:06 PM EST Patient called looking for a neurologist referral. She said Dr. Zamudio knows about this and would know what she was requesting. [phone]. Patient is hoping to be seen in April. She is going out of state in May. documented in this encounter Plan of Treatment Upcoming Encounters Date Type Specialty Care Team Description 03/14/2022 Office Visit Dermatology [place] Edgar MD [facility] ER [address] DIANA CANAS-DERMAT [place], [place] [address] (Wo rk) documented as of this encounter Visit Diagnoses Diagnosis Family history of melanoma Family history of other specified malign ant neoplasm documented in this encounter Care Teams Cereal Miller Relationship Specialty Start Date End Date Leeanne Schultz MD PCP - General 10/28/13 [address] [place] [address] documented as of this encounter
--- OUTSIDE RECORDS SUMMARY | 2021-11-23 01:53 | XMS_ITS | Encounter Summary ---
:1945 Author Organization [facility] [place] [address] Care Team Providers Name Role Phone Leeanne Schultz MD Primary Care Provider Encounter Details Date Type Department Care Team Description 02/04/2015 Hospital Encounter Hematology and Oncology at [facility]; [facility] [place] [address] Social History Tobacco Use Types Packs/Day [...] Visit Dermatology [place] Edgar MD [facility] ER [address] DIANA CANAS-DERMAT [place], [place] [address] (Wo rk) documented as of this encounter Procedures Procedure Name Priority Date/Time Associated Comments Diagnosis HEMOGRAM Routine 02/04/2015 12:49 Melanoma Results for this PM EDT procedure are i n the results section. DIFFERENTIAL, Routine 02/04/2015 12:49 Melanoma Results fo r this AUTOMATED PM EDT procedure are i n the results section. CBC (WITH DIFF) Routine 02/04/2015 12:49 Melanoma PM EDT TSH Routine 02/04/2015 12:49 Chronic fatigue Results for this PM EDT procedure are i n the results section. T4, FREE Routine 02/04/2015 12:49 Chronic fatigue Results for this PM EDT procedure are i n the results section. LACTATE DEHYDROGENASE Routine 02/04/2015 12:49 Melanoma Re sults for this PM EDT procedure are i n the results section. COMPREHENSIVE Routine 02/04/2015 12:49 Melanoma Results fo r this METABOLIC PANEL PM EDT procedure ar e in (NON-FASTING) the results section. documented in this encounter Results Differential, Automated (02/04/2015 12:49 PM EDT) P athologist Signature Neutrophils % 47.7 % CERNER MILLENNIUM Neutr Abs (ANC) 3.28 1.50 - CERNER 6.30 MILLENNIUM x10(3)/mcL Lymphocytes % 38.6 % CERNER MILLENNIUM Lymphocytes Abs 2.6 1.0 - 3.6 CERNER x10(3)/mcL MILLENNIUM Monocytes % 9.2 % CERNER MILLENNIUM Monocyte Abs 0.6 0.2 - 1.0 CERNER x10(3)/mcL MILLENNIUM Eosinophils % 3.8 % CERNER MILLENNIUM Eosinophils Abs 0.3 0.0 - 0.5 CERNER x10(3)/mcL MILLENNIUM Basophils % 0.4 % CERNER MILLENNIUM Basophils Abs 0.0 0.0 - 0.2 CERNER x10(3)/mcL MILLENNIUM Immature Gran % 0.30 % CERNER MILLENNIUM Comment: Immature granulocytes(IG's)percentage an d absolute count will include metamyelocytes, myelocytes, and promyelo cytes. Blood smears from CBCs yielding IG's will be scanned manually for concor dance. If this scan disagrees with the automated IG or if promyelocytes are not ed, a manual differential will be performed. Karla Gran Abs 0.02 0.00 - 0.05 x10(3)/mcL CER NER MILLENNIUM Specimen Anatomical Collection Method Collection Time Receive d Time (Source) Location / / Volume Laterality Blood specimen 02/04/2015 12:49 5 1:11 (specimen) PM EDT PM EDT Resulting Agency Comment Spec In Lab Evy Gramajo MD HEMATOLOGY ORDERABLES Performing Organization Address City/State/ZIP Code Phon e Number [place] [id number] CERNER MILLENNIUM (ABNORMAL) Hemogram (02/04/2015 12:49 PM EDT) P athologist Signature WBC 6.9 4.0 - 10.0 CERNER x10(3)/mcL MILLENNIUM RBC 4.38 3.93 - CERNER 5.22 MILLENNIUM x10(6)/mcL Hemoglobin 13.9 11.2 - CERNER 15.7 gm/dL MILLENNIUM Hematocrit 42.6 34.0 - CERNER 45.0 % MILLENNIUM MCV 97.3 (H) 79.0 - CERNER 94.0 fL MILLENNIUM MCH 31.7 26.6 - CERNER 32.2 pg MILLENNIUM MCHC 32.6 32.0 - CERNER 36.5 gm/dL MILLENNIUM Platelets 398 (H) 145 - 370 CERNER x10(3)/mcL MILLENNIUM RDWSD 46.0 35.0 - CERNER 46.0 fL MILLENNIUM RDWCV 13.0 10.9 - CERNER 14.4 % MILLENNIUM MPV 9.7 9.0 - 12.0 CERNER fL [facility] Specimen Anatomical Collection Method Collection Time Receive d Time (Source) Location / / Volume Laterality Blood specimen 02/04/2015 12:49 5 1:11 (specimen) PM EDT PM EDT Resulting Agency Comment Spec In Lab Evy Gramajo MD HEMATOLOGY ORDERABLES Performing Organization Address City/State/ZIP Code Phon e Number [address] CERNER MILLENNIUM T4, free (02/04/2015 12:49 PM EDT) athologist Signature Free T4 1.09 0.93 - 1.70 CERNER ng/dL [facility] Specimen Anatomical Collection Method Collection Time Receive d Time (Source) Location / / Volume Laterality Blood specimen 02/04/2015 12:49 5 1:11 (specimen) PM EDT PM EDT Resulting Agency Comment Spec In Lab Evy Gramajo MD CHEMISTRY ORDERABLES Performing Organization Address City/[facility]/ZIP Code Phon e Number [address] [facility] MILLENNIUM (ABNORMAL) TSH (02/04/2015 12:49 PM EDT) athologist Signature TSH 5.04 (H) 0.27 - 4.20 CERNER mcIU/mL [facility] Specimen Anatomical Collection Method Collection Time Receive d Time (Source) Location / / Volume Laterality Blood specimen 02/04/2015 12:49 5 1:11 (specimen) PM EDT PM EDT Resulting Agency Comment Spec In Lab Evy Gramaoj MD CHEMISTRY ORDERABLES Performing Organization Address City/State/[place] [address] [facility] Lactate Dehydrogenase (02/04/2015 12:49 PM EDT) athologist Signature LDH 167 110 - 220 CERNER unit/L MILLENNIUM Specimen Anatomical Collection Method Collection Time Receive d Time (Source) Location / / Volume Laterality Blood specimen 02/04/2015 12:49 5 1:11 (specimen) PM EDT PM EDT Resulting Agency Comment Spec In Lab Evy Gramajo MD CHEMISTRY ORDERABLES Performing Organization Address City/State/[place] [address] CERNER MILLENNIUM (ABNORMAL) Comprehensive metabolic panel (non-fasting) (02/04/2015 12:49 PM EDT) athologist Signature Glucose Lvl 115 65 - 199 CERNER mg/dL MILLENNIUM Comment: Diabetes: >=200 mg/dL plus symp toms BUN 19 (H) 8 - 18 mg/dL CERNER MILLENNIUM Creatinine 0.85 0.70 - 1.20 mg/dL CERNER MILL ENNIUM Comment: Please note that the pediatric reference intervals supplied above were not validated at [facility]. Results from pediatri c patients should be [...] Alk Phos 63 40 - 104 unit/L GUILLERMINA GALVAN IUM Total Bilirubin 0.3 0.2 - 1.3 mg/dL GUILLERMINA Owen ILLENNIUM Bili, Direct 0.1 0.0 - 0.3 mg/dL GUILLERMINA LEMUS ENNIUM Estimated GFR >60 >=60 GUILLERMINA Owen Comment: This estimated GFR (eGFR) value was [...] the following links into your internet browser. [email or web address] Specimen Anatomical Collection Method Collection Time Receive d Time (Source) Location / / Volume Laterality Blood specimen 02/04/2015 12:49 5 1:11 (specimen) PM EDT PM EDT Resulting Agency Comment Spec In Lab Evy Gramajo MD CHEMISTRY ORDERABLES Performing Organization Address City/State/[place]IP [place] [address] GUILLERMINA WILKS documented in this encounter Visit Diagnoses Diagnosis Melanoma Melanoma of skin, site unspecified Chronic fatigue Other malaise and fatigue documented in this encounter Care Teams Certified Vehicle Fire Investigator Relationship Specialty Start Date End Date Leeanne Schultz MD PCP - General 10/28/13 [address] [place] [address] documented as of this encounter
--- OUTSIDE RECORDS SUMMARY | 2021-11-23 01:54 | XMS_ITS | Encounter Summary ---
:1945 Author Organization [facility] [address] Care Team Providers Name Role Phone Mira Marino MD Primary Care Provider Reason for Visit Reason Onset Date Comments Other 10/23/2012 telephone call Encounter Details Date Type Department Care Team Description 10/23/2012 Telephone Dermatology at [facility] Eleanor Vazquez (telephone call Road Dara Brito MD ) [address] [place] [address] [facility] [place] [address] Social History Tobacco Use Types Packs/Day Years Used Date Former Smoker Sex Assigned at Date Recorded Female 10/02/2020 6:58 PM EDT documented as of this encounter Miscellaneous Notes Telephone Encounter - Dara Vazquez - 10/24/2012 6:05 PM EDT Pathology results discussed with pt on 10/24/12. Please refer to result note or further details. Telephone Encounter - Mavis Garcia - 10/23/2012 2:[address] Alvarez, Please call Ms. Bush at [phone] regarding her biopsy result. Thank you, Mavis documented in this encounter Plan of Treatment Upcoming Encounters Date Type Specialty Care Team Description 03/14/2022 Office Visit Dermatology [place] Edgar MD [facility] [address] DIANA CANAS-DERMAT [place], [place] [address] (Wo rk) documented as of this encounter Visit Diagnoses Not on filedocumented in this encounter Care Teams Digital Music Instructor Relationship Specialty Start Date End Date Mira Marino MD PCP - General 04/18/10 10/27/13 HOSPITAL[facility] SERVICES [address] [place] [address] [place] [address] documented as of this encounter
--- OUTSIDE RECORDS SUMMARY | 2021-11-23 01:54 | XMS_ITS | Encounter Summary ---
:1945 Author Organization [facility] [place] [address] Care Team Providers Name Role Phone Mira Marino MD Primary Care Provider Reason for Visit Reason Comments Skin Check Encounter Details Date Type Department Care Team Description 07/25/2011 Follow-Up Dermatology Ni Zamudio MD [place] (granuloma annulare) (Primary Dx); [facility] [place] (actinic keratosis) [address] [place] [id number] [facility] [phone] RD-DERMATOLOGY [place] [address] (Wo rk) Social History Tobacco Use Types Packs/Day Years Used Date Former Smoker Sex Assigned at Date Recorded Female 10/02/2020 6:58 PM EDT documented as of this encounter Progress Notes Ni Zamudio MD - 07/25/2011 9:10 AM EDT DERMATOLOGY ESTABLISHED PATIENT CLINIC NOTE Date of service: 07/25/2011 Leeanne Bush : 1945 Provider: Ni Zamudio MD Chief Complaint Patient presents with ??? Skin Check SKIN HISTORY: 1. She has family history of melanoma in her brother. 2. Melanoma.left lateral cheek in 08/1999, with negative SLNB. The Breslow depth was 1.24 mm. 3. History of dysplastic nevi and ? BCC s 4. 2009 Basal cell carcinoma on her left mid back, excised 5. 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 ? August 2007, she had MIS treated in [place] ? Right lateral thigh. 6. 10/2006 Right lower back, mild to moderate DN , Excised 7. She grew up in [place] with a history of extensive sun exposure. 8. Left leg BCC, 10/1999 (outside path) 9. Right shoulder BCC, 04/2000 (outside path) 10. Left arm, BCC, 10/2000 (outside path) 11. Left upper inner arm, mild-mod DN, 04/2001 (outside path) 12. Left upper chest, BCC, 11/2001 (outside path) 13. Right lower back, mild DN, 02/2006 (outside path) 14. 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 HPI Leeanne Bush is a 65 y.o. year old female. C/o scaly papules x 2 on lower lip. O/w no specific concerns. Continues to have asympotmatic rash on right hand, a similar nearby spot resolved spontaneously; favored GA at last visit; pt continues to decline bx for defintive dx. Concerned about brown discoloration on face making skin flap on left cheek more conspicuous. ADR: Allergies Allergen Reactions ??? Shellfish Derived ??? Morphine Sulfate Unknown ??? Nitrofurantoin Monohyd/m-cryst Nausea And Vomiting MEDS: Current outpatient prescriptions ordered prior to encounter Medication Sig Dispense Refill ??? tretinoin (RETIN-A) 0.025 % cream Apply topically nightly. 45 g PRN ??? amlodipine (NORVASC) 10 [...] ??? levothyroxine (SYNTHROID) 150 mcg tablet Take 150 mcg by mouth daily. ??? zolpidem (AMBIEN) 10 mg tablet Take 10 mg by mouth nightly. ??? diclofenac-misoprostol (ARTHROTEC 75) 75-200 mg-mcg per tablet 1 Tablet(s), PO, Twice daily,PRN ROS General: feeling well Skin: denies other skin complaints EXAM General: NAD, pleasant, cooperative. A total body skin exam except for areas covered by underwear was performed. This includes examination of the skin of the face, ears, neck, chest, axillae, left and right upper and lower extremities, hands and feet, abdomen, and except the areas covered by underwearwere not examined. Skin: Significant skin findings: A. 0.2-0.3cm scaly irregular pink papule right lower vermilion lip B. R hand index finger overlying MCP: Solitary approx 1.2 cm oval dermal plaques C. Melanoma scar left cheek, no sign residual pigment. Axillary, inguinal lymph nodes palpated, no lymphadenopathy. D. Extensive photo damage and telangiectasia on face ASSESSMENT/PLAN: A. Actinic Keratosis ?? Carac, No rx needed patient has supply at home. Apply to affected areas discussed daily for 2-3 weeks. Apply to the affected areas of sun damage as discussed in clinic either once or twice daily depending on inflammation. OK to stop all together if too much discomfort. Urged patient to call clinic if there is too much pain or infection is suspected. B. 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 C. NER melanoma D. Photo damage; lentigenes / telangiectasia ?? Refer to Dr. Green for laser consultation for photo damage RTC 6 months, PRN sooner Note initiated by: ELLIE GONZALEZ LPN Routed to physician for review and changes: Ni Zamudio MD Section of Dermatology [facility] documented in this encounter Plan of Treatment Upcoming Encounters Date Type Specialty Care Team Description 03/14/2022 Office Visit Dermatology [place] Edgar MD [facility] [address] DIANA CANAS-DERMAT [place], [place] [address] (Wo rk) documented as of this encounter Visit Diagnoses Diagnosis GA (granuloma annulare) - Primary Other specified erythematous condition [place] (actinic keratosis) Actinic keratosis documented in this encounter Care Teams Farm Operations Technical Director Relationship Specialty Start Date End Date Mira Marino MD PCP - General 04/18/10 10/27/13 [facility] [address] [place] [place] [address] [place] [address] documented as of this encounter
--- OUTSIDE RECORDS SUMMARY | 2021-11-23 01:54 | XMS_ITS | Encounter Summary ---
:1945 Author Organization [facility] [place] [address] Care Team Providers Name Role Phone Kajal Schultz MD Primary Care Provider Reason for Visit Reason Comments Procedure Melanoma x 2; MIS x 1 Encounter Details Date Type Department Care Team Description 07/16/2014 Procedure visit Dermatology at [facility] Ni Rothman, Skin lesion; [place] PETER Melanoma, malignant, upper extremity, le ft; [address] [facility] Melanoma, malignant, upper e xtremity, right; [facility] Melanoma in situ [place] [phone] [facility] [phone] RD-DERMATOLOGY [place] [address] Social History Tobacco Use Types Packs/Day Years Used Date Former Smoker Smokeless Tobacco: Never Used Alcohol Use Standard Drinks/Week Comments Yes 7 (1 standard drink = 0.6 oz pure alcoho l) Sex Assigned at Date Recorded Female 10/02/2020 6:58 PM EDT documented as of this encounter Last Filed Vital Signs Vital Sign Reading Time Taken Comments Blood Pressure 142/75 07/16/2014 3:30 PM EDT Pulse - - Temperature - - Respiratory Rate - - Oxygen Saturation - - Inhaled Oxygen Concentration - - Weight - - Height - - Body Mass Index - - documented in this encounter Patient Instructions Patient InstructionsSeverTracy rosales LPN - 07/16/2014 5:09 PM EDT POST OPERATIVE INSTRUCTIONS Wash your hands before changing the dressing. The dressing on the side should remain in place and dry until 48 hours, then change bandage and cover for 2 weeks until sutures are removed the dressing should then be removed gently. After removing the dressing, daily wound care should be performed as follows: Clean the wound with warm water and pat dry gently Apply Vaseline Cover the wound with a new dressing such as Telfa and tape or a Band-Aid For discomfort, you may take Tylenol or other non-aspirin pain medication. If bleeding should occur, pressure should be applied constantly for 15 minutes on the dressing with the help of a towel, wash cloth, or piece of gauze. It is important that you avoid strenuous and/or vigorous activities, heavy lifting (more than 5-10 lbs) and bending for a period of 2-3 weeks The sutures should be removed in 14 days If you have any questions, please contact the office of Ni Rothman MD during the day at . You may also contact your nurse: Tracy during the day at If you are unable to reach your physician, after 5PM and on weekends, please call the hospital number and ask for the Workforce Development Specialist postal transportation clerk. documented in this encounter Progress Notes Melani Snyder - 08/06/2014 4:51 PM EDT Quick Note: -patient has appt 09/01/2014 @ 9:30am (Dr. Cabral in clinic) re-check scar site on left arm. Suspiciousbump noted. Melani Snyder - 07/27/2014 11:26 AM EDT Quick Note: -spoke to patient regarding biopsy results x 3 -appt on 07/30/2014 for suture removal -Patient instructed to call with questions or concerns Melani Snyder - 07/27/2014 9:51 AM EDT Quick Note: -Left voice message for patient to call clinic regarding biopsy results. Ni Rothman MD - 07/16/2014 5:29 PM EDT DERMATOLOGY SURGICAL APPOINTMENT NOTE Date of service: 07/16/2014 Kajal Bush : 1945 Provider: Ni Rothman MD Chief Complaint Patient presents with ??? Procedure Melanoma x 2; MIS x 1 HPI: Kajal Bush is a 68 y.o. year old female who presents for [...] current facility-administered medications for this visit. Exam: Blood pressure 142/75. NAD, pleasant, cooperative Skin, focused exam: Pathology Report: Rec Date: 06/30/2014 LOC: [facility] SURGICAL PATHOLOGY ---Pathologic Diagnosis--- A - Skin, left upper arm, shave biopsy: Histologic Type: Malignant melanoma, predominantly lentigo maligna type. Ulceration: Absent. Depth of Invasion: 0.18 mm Ronaldo's Level: II Regression: Not identified. Vascular Invasion: Not identified. Perineural Invasion: Not identified. Microscopic Satellites: Cannot assess. Dermal mitoses per mm2: Not identified. Tumor infiltrating lymphocytes: Not identified. Solar Elastosis: Present. Associated Nevus: Not identified. Margins: Peripheral Margins: Positive. Deep Margin: Negative. 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 Ulceration: Not identified Depth of Invasion: 0.24 mm Ronaldo's Level: II Regression: Not identified. Vascular Invasion: Not identified. Perineural Invasion: Not identified. Microscopic Satellites: Cannot assess. Dermal mitoses per mm2: Not identified. Tumor infiltrating lymphocytes: Not identified. Solar Elastosis: Present. Associated Nevus: Not identified. Margins: Peripheral Margins: Positive. Deep Margin: Positive, (adnexal extension). Pathologic TNM Codes: pT1a Rec Date: 07/14/2014 LOC: [facility] SURGICAL PATHOLOGY ---Pathologic Diagnosis--- A - Skin, right superior shoulder, shave biopsy: Actinic keratosis with slight increase in solitary enlarged melanocytes. See Comment. B - Skin, left upper mid thigh, shave biopsy: Severely atypical intraepidermal melanocytic proliferation arising in association with a melanocytic nevus; an evolving melanoma in situ cannot be excluded. See Comment. C - Skin, left lateral alex, shave biopsy: Lentigo with features of a pigmented actinic keratosis. See Comment. CR-0 07/15/14 BJM 07/16/14 Verified by: Yang PETER, Rob Villalpando Dermatopathologist (Electronic Signature) The attending pathologist whose signature appears on this report has reviewed all diagnostic slides and has edited the gross and/or microscopic portion of the report in rendering the final pathologic diagnosis. ---Comment--- A - Within this actinic keratosis, there is an increased number of enlarged epithelioid melanocytes. Nonetheless, in the context of features suggestive of trauma and presence on sun-damaged skin, this more likely represents a reactive phenomenon. Clinical followup at this site is recommended. Multiple deeper levels have been examined. B - The lesion is asymmetrical and poorly circumscribed with solitary enlarged melanocytes predominating at, and also above, the dermoepidermal junction and overlying sun-damaged skin. Thus, this could represent an evolving melanoma in situ. For these reasons, and because the lesion extends to within a minute fraction of a millimeter of the peripheral specimen edge, the complete excision of this site is strongly recommended to ensure its total removal. A MART-1 immunohistochemical stain highlights the melanocytic proliferation. This case has been reviewed by Dr. Bailey, who concurs with the diagnosis. Multiple deeper levels have been examined. C - Multiple deeper levels have been examined. A/P: 1. Patient verified. Surgical site identified with patient. Pathology reviewed. 2. Procedure Notes: Surgeon: Ni Rothman MD Tailor Fitter: Tracy Jj LPN A. Excision of lesion, excision width including margins = 2.9cm B. Intermediate repair, length 6.5cm Site: Left upper arm (specimen A) Discussed treatment, expectations, need for follow-up. Informed [...] restrictions were reviewed. Suture removal: 14 days A. Excision of lesion, excision width including margins = 2.6cm B. Intermediate repair, length 6.4cm Site: Right forearm (specimen B) Discussed treatment, expectations, need for follow-up. Informed [...] restrictions were reviewed. Suture removal: 14 days A. Excision of lesion, excision width including margins = 1.5cm B. Intermediate repair, length 3.7cm Site: Left upper mid thigh (specimen C) Discussed treatment, expectations, need for follow-up. Informed consent obtained. See CIS for current medications, drug sensitivities and vital signs. Sterile skin prep performed. Local anesthesia: buffered 1% lidocaine with 1/100,000 epinephrine. The excision was designed with clinically clear-appearing margins of at least 0.5 cm in order to remove the lesion. The lesion was excised down to the level of fascia. An intermediate closure was required in order to close potential space and to reduce the risk of dehiscence. Hemostasis was achieved. A layered closure was performed. Multiple buried absorbable sutures were placed to reappose deep fat.The epidermis and dermis were reapposed using monofilament suture. There were no complications; the patient tolerated the procedure well. Specimen to Pathology. The wound was dressed. Post-procedure expectations (including discomfort management), wound care and activity restrictions were reviewed. Suture removal: 14 days 3. Follow up: 3 months for melanoma skin exam Ni Rothman MD Section of Dermatology [facility] documented in this encounter Plan of Treatment Upcoming Encounters Date Type Specialty Care Team Description 03/14/2022 Office Visit Dermatology [place] Edgar MD [facility] DR DIANA CANAS-DERMAT [place], [place] [address] (Wo rk) documented as of this encounter Procedures Procedure Name Priority Date/Time Associated Diagnosis Comme nts SPECIMEN TO Routine 07/16/2014 5:21 PM Skin lesion Results f or this PATHOLOGY (NON-OR) EDT procedure are in the results section. SURGICAL PATHOLOGY Routine 07/16/2014 5:21 PM Res ults for this REPORT EDT procedure are i n the results section. documented in this encounter Results Surgical Pathology Report (07/16/2014 5:21 PM EDT) Component Value Ref Test Analysis Performed At [facility] Range Method Time Signature Surgical CERNER Pathology ? [facility] Report ? Provider: ?? NI ROTHMAN ? Pt. Name: ?? WILFREDO RODARTEAH Niranjan ? Acc #: ?[id number] ? Pt. ? Col Date: ?? 5 ? /Sex: ?1945,(68 years),Female ? Rec Date: ?? 07/17/2014 ? LOC: ?[facility] ? SURGICAL PATHOLOGY ? ---Pathologic Diagnosis--- ? A - Skin, left upper arm, excision: ? - RESIDUAL melanoma in situ, MARGINS FREE ? - REPARATIVE CHANGES CONSISTENT WITH PREVIOUS O PERATIVE SITE ? - Incidental intradermal nevus and lentigines, see comment ? B - Skin, right forearm, excision: ? - RESIDUAL melanoma in situ, MARGINS FREE ? - REPARATIVE CHANGES CONSISTENT WITH PREVIOUS O PERATIVE SITE ? - Incidental intradermal nevus ? C - Skin, left upper mid thigh, excision: ? - NO RESIDUAL of the previously diagnosed sever royer atypical ? intraepidermal melanocytic proliferation a rising in a nevus ? - REPARATIVE CHANGES CONSISTENT WITH PREVIOUS O PERATIVE SITE ? CR-0 ? 07/19/14 ? BJM ? 07/22/14 Verified by: ? Jason Bailey MD ? Dermatopathologist, Bone & Soft Tissue ? Pathologist ? (Electronic Si gnature) ? The attending pathologist whose signature appears o n this report has ? reviewed all diagnostic slides and has edited the suzanne ss and/or ? microscopic portion of the report in rendering the fi nal pathologic ? diagnosis. ? ---Comment--- ? A - Hilmar-1 immunohistochemistry highlights intraepi dermal and dermal ? melanocytes. ? ---Microscopic Description--- ? Immunohistochemistry Studies: ? Formalin-fixed, paraf fin-embedded tissue sections are studied using the B- ? SA system technique w ith appropriate positive and negative controls. ??These ? IHC studies provide t he pathologist with adjunctive diagnostic information. ? Antibody specificity has been verified by testing antibodies on a series of ? in-house tissues with known immunohistochemical perfo rmance ? characteristics. The ? [facility] ? Provider: ?? LORNA, NI Owen ? Pt. Name: ?? HAJA ER, KAJAL Ureña ? Acc #: ?[id number] ? Pt. ? Col Date: ?? 5 ? /Sex: ?1945,(68 years),Female ? Rec Date: ?? 07/17/2014 ? LOC: ?[facility] ? SURGICAL PATHOLOGY ? clinical interpretati on of any antibody positive staining or its absence is ? evaluated within the context of clinical presentation , morphology, ? histopathological criteria and other diagnostic tests . ? ---Gross Description--- ? A - Labeled/Fixative: Left upper arm, formalin. ? Quantity/Size: Single, 4.3 x 2.2 x 0.3 cm. ? Tissue Description: A n ellipse of wrinkled, yellow-callahan skin with a central ? 0.6 x 0.6 cm crusted scar. ? Sections/Processing: The specimen is inked and serial ly sectioned. ? The ends are submitted in (1); the remainder in (2-7) . (T7) ? B - Labeled/Fixative: Right forearm, formalin. ? Quantity/Size: Single, 4.0 x 2.2 x 0.5 cm. ? Tissue Description: A n ellipse of wrinkled, yellow-callahan skin with a central ? 0.4 x 0.3 cm crusted lesion. ? Sections/Processing: The specimen is inked and serial ly sectioned. ? The ends are submitted in (1); the remainder in (2-7) . (T7) ? C - Labeled/Fixative: Left upper mid thigh, formalin. ? Quantity/Size: Single, 2.5 x 1.5 x 1.0 cm. ? Tissue Description: A n ellipse of wrinkled, pink-callahan skin with a central ? 0.5 x 0.5 cm crusted ulcerated lesion. ? Sections/Processing: The specimen is inked and serial ly sectioned. ? The ends are submitted in (1); the remainder in (2-5) . (T5) ??ejr ? ---Clinical Information--- ? Specimen Submitted: ? A - Skin, left upper arm, excision (1) ? B - Skin, right forearm, excision ? C - Skin, left upper mid thigh, excision (1) ? Clinical History: ? A - 0.9 cm pink scar; [id number] ? B - 0.6 cm pink scar; [id number] ? C - 0.5 cm pink scar; [id number] ? Clinical Diagnosis: ? A - Scar, rule out residual malignant melanoma6 Scar ? B - Scar, rule out residual malignant melanoma ? C - Scar, rule out residual MIS. Specimen (Source) Anatomical Collection Method Collection Time Re ceived Time Location / / Volume Laterality 07/16/2014 5:21 PM EDT Ni Rothman MD PATHOLOGY/CYTOLOGY ORDERABLE S Performing Organization Address City/State/[place] [address] [facility] Specimen to Pathology (NON-OR) (07/16/2014 5:21 PM EDT) Specimen Anatomical Collection Method Collection Time Receive d Time (Source) Location / / Volume Laterality AP Specimen 07/16/2014 5:21 PM 5 5:21 EDT PM EDT Narrative GUILLERMINA WILKS - 07/16/2014 5:21 PM E DT Specimen requisition ordered. ??Separate Pathology report to follow Ni Rothman MD PATHOLOGY/CYTOLOGY ORDERABLE S Performing Organization Address City/State/[place] [address] [facility] documented in this encounter Visit Diagnoses Diagnosis Skin lesion Unspecified disorder of skin and subcuta neous tissue Melanoma, malignant, upper extremity, le ft Melanoma, malignant, upper extremity, ri ght Melanoma in situ of lower extremity, lef t documented in this encounter Care Teams Instructor Correspondence School Relationship Specialty Start Date End Date Kajal Schultz MD PCP - General 10/28/13 [address] [place] [address] documented as of this encounter
--- OUTSIDE RECORDS SUMMARY | 2021-11-23 01:54 | XMS_ITS | Encounter Summary ---
:1945 [place] [address] Care Team Providers Name Role Phone Leeanne Schultz MD Primary Care Provider Encounter Details Date Type Department Care Team Description 07/02/2014 Hospital Encounter Pulmonology at [facility] PFT ROOM 1 COPD ([facility] [place] Leeanne Schultz MD [address] [place], [place] [id number] [address] Drive pulmonary disease) [place] [address] Social History Tobacco Use Types Packs/Day Years [...] mg by mouth 0 09/03 tablet nightly. fluoruracil (CARAC) 0.5 % Apply to the 30 g 0 06/30/19 15 02/04/2015 Cream affected area on left cheek and right upper lip daily for 3 weeks CELEBREX 200 mg capsule Take 200 mg by mouth 0 04/15/2015 as needed. tretinoin (RETIN-A) 0.025 Apply topically to 45 g 0 04/26/2015 % creamIndications: Skin affected areas on lesion the face at night. Estradiol 0.1 mg/[address] 1 patch onto 0 12/16/2020 PTWK the skin once a week. documented as of this encounter Procedure Notes Marlon Fernandes Jr., MD - 07/02/2014 5:05 PM ESTAssociated Order(s): PULMONARY FUNCTION TEST Pulmonary Function Testing Spirometry is normal. Diffusing capacity is normal. Oxygen saturation is normal. Marlon Fernandes MD Pulmonary Medicine documented in this encounter Plan of Treatment Upcoming Encounters Date Type Specialty Care Team Description 03/14/2022 Office Visit Dermatology [place] Edgar MD [facility] [address] DIANA CANAS-DERMAT [place] [address] (Wo rk) documented as of this encounter Procedures Procedure Name Priority Date/Time Associated Diagnosis Comme nts PULMONARY FUNCTION Routine 07/02/2014 5:06 PM COPD (chronic Re sults for this TEST EST obstructive procedure are i n pulmonary disease) the resul ts section. documented in this encounter Results Pulmonary Function Testing (07/02/2014 5:06 PM EST) Narrative Marlon Fernandes Jr., MD - 07/02/2014 5: 06 PM EST Marlon Fernandes Jr., MD ? 07/02/2014 ??5:06 PM Pulmonary Function Testing Spirometry is normal. ??Diffusing capaci ty is normal. ??Oxygen saturation is normal. Marlon Fernandes MD Pulmonary Medicine Marlon Fernandes Jr., MD PFT ORDERABLES documented in this encounter Visit Diagnoses Diagnosis COPD (chronic obstructive pulmonary dise ase) Chronic airway obstruction, not elsewher e classified documented in this encounter Care Teams Medical Administrative Technician Relationship Specialty Start Date End Date Leeanne Schultz MD PCP - General 10/28/13 [address] [place] [address] documented as of this encounter
--- OUTSIDE RECORDS SUMMARY | 2021-11-23 01:54 | XMS_ITS | Encounter Summary ---
:1945 Author Organization [facility] [place] [address] Care Team Providers Name Role Phone Leeanne Schultz MD Primary Care Provider Reason for Visit Reason Comments Skin Lesion right forearm Encounter Details Date Type Department Care Team Description 08/19/2014 Follow-Up [facility] at [facility] Rojas, Bartolo Lipoma; Geneva Fisher MD Lentigo; [address] [facility] Sebor[place] [address] [facility] [place], [place] [address] (Wo rk) Social History Tobacco Use Types Packs/Day Years Used Date Former Smoker Smokeless Tobacco: Never Used Alcohol Use Standard Drinks/Week Comments Yes 7 (1 standard drink = 0.6 oz pure alcoho l) Sex Assigned at Date Recorded Female 10/02/2020 6:58 PM EDT documented as of this encounter Progress Notes Cm Kaminski III, MD - 08/19/2014 12:32 PM EDT I directly supervised Dr. Rojas during this office visit. Dr. Rojas presented the history and physical exam to me. I then saw and examined this patient with Dr. Rojas . We reviewed the history and pertinent details and I confirmed the physical findings. I agree with the details of the history and physical exam as documented in Dr. Rojas's note. Cm Kaminski III, MD Staff Physician Bartolo Rojas MD - 08/19/2014 10:47 AM EDT DERMATOLOGY - ESTABLISHED PATIENT FOLLOW-UP Date of service: 08/19/2014 Leeanne Bush : 1945 Dermatology Resident Note: Bartolo Rojas MD Chief Complaint Patient presents with ??? Skin Lesion right forearm HPI: Ms. Leeanne Bush is a 68 y.o. female. This is an established patient, last seen by Dr. Zamudio on 07/14/2014. She presents today with concerns regarding her melanoma scar on the right forearm. She recalls that during the recent medical student teaching rounds, two physicians were concerned about the recent melanoma excision site. She has been very worried about the area over the past weeks. Skin History: 1. She has family history of melanoma [...] , Excised 7. She grew up in [place] with a history of extensive sun exposure. [...] specimen. 16. 03/04/13- DF. unit or cyst. Patient Active Problem List Diagnosis Code ??? Basal cell carcinoma 173.91 ??? Personal history of malignant melanoma of skin V10.82 Current Outpatient Prescriptions on File Prior to Visit Medication Sig Dispense Refill ??? fluoruracil (CARAC) [...] by mouth nightly. No current facility-administered medications on file prior to visit. Allergies Allergen Reactions ??? Shellfish Derived Hives and Other (See Comments) Tongue swelling too ??? Morphine Sulfate Unknown- during surgery states not life threatening. Heart felt like it was going to burst states. ??? Nitrofurantoin Monohyd/M-Cryst Nausea And Vomiting Family History: Brother- Melanoma Father- skin cancer, unknown type No family history of atopy, psoriasis or other skin disease Social History: Retired Review of Systems: - General: Feels well. - Skin: As per HPI; no other skin concerns. Examination: - Constitutional: Patient was alert, well-appearing and in no noticeable distress. - Skin: An abbreviated skin exam was performed; this includes: Right Forearm Specific skin findings: A. Right forearm: Scattered keratoses and lentigines adjacent to the . No worrisome features under dermoscopy. B. Soft, mobile 3 cm lipoma right medial AC fossa C. The melanoma scar was examined and palpated, no nodularity or repigmentation. Diagnosis/Assessment/Treatment Plan: A. Seborrheic Keratoses/Lentigines - Patient reassured areas are benign in nature. B. Lipoma - reassured of benign nature. No treatment indicated. This may indeed have been the nodularity appreciated in the medical student teaching rounds. C. Melanoma s/p WLE - healing well. Reassured patient. No nodularity or other concerning features. Follow-up: RTC: As scheduled. Instructed to call for questions or concerns. I, Lexi Iverson LPN, am documenting this encounter acting as the scribe for and in the presenceof Dr.Thomas Rojas. I performed the above scribed service and agree with the accuracy of the documentation in this encounter. Bartolo Rojas MD Resident in Dermatology [facility] Patient seen and evaluated with staff pourer bull ladle: Cm Kaminski MD Section of Dermatology [facility] documented in this encounter Plan of Treatment Upcoming Encounters Date Type Specialty Care Team Description 03/14/2022 Office Visit Dermatology [place] Edgar MD [facility] [address] CANAS[address]DERMAT [place], [place] [address] (Wo rk) documented as of this encounter Visit Diagnoses Diagnosis Lipoma Lipoma of unspecified site Lentigo Other dyschromia Seborrheic keratosis Other seborrheic keratosis documented in this encounter Care Teams Senior Pastor Relationship Specialty Start Date End Date Leeanne Schultz MD PCP - General 10/28/13 [address] [place] [address] documented as of this encounter
--- OUTSIDE RECORDS SUMMARY | 2021-11-23 01:54 | XMS_ITS | Encounter Summary ---
:1945 Author Organization [facility] [place] [address] Care Team Providers Name Role Phone Mira Marino MD Primary Care Provider Encounter Details Date Type Department Care Team Description 10/09/2012 Orders Only Dermatology at [facility] Dara Burk [address] [place] [address] [facility] [phone] [facility] FL[place]-DER[place], [place] [address] Social History Tobacco Use Types Packs/Day Years Used Date Former Smoker Sex Assigned at Date Recorded Female 10/02/2020 6:58 PM EDT documented as of this encounter Progress Notes Lenore Colon LPN - 10/09/2012 4:07 PM EDT Pre-Op Phone Call: I spoke to the patient via telephone and confirmed the following: Patient's full name and : Leeanne Bsuh, 1945 Provider's name: Dara Pearson MD Date of service: 10/15/2012 Time of service: 11:00 AM Site of lesion: LEFT ANTERIOR SHOULDER Diagnosis: dysplastic nevus Allergies: Allergies Allergen Reactions ??? Morphine Sulfate Unknown ??? Shellfish Derived ??? Nitrofurantoin Monohyd/M-Cryst Nausea And Vomiting Medications: Current Outpatient Prescriptions Medication Sig Dispense Refill [...] per tablet 1 Tablet(s), PO, Twice daily,PRN Blood Thinners: no Defibrillator/Pacemaker: no Heart valves: no Artificial Joints: no Prophylactic antibiotics: no LENORE COLON LPN documented in this encounter Plan of Treatment Upcoming Encounters Date Type Specialty Care Team Description 03/14/2022 Office Visit Dermatology [place] Edgar MD [facility] [address] CANAS[facility], [place] [address] (Wo rk) documented as of this encounter Visit Diagnoses Not on filedocumented in this encounter Care Teams Showroom Consultant Relationship Specialty Start Date End Date Mira Marino MD PCP - General 04/18/10 10/27/13 [facility] [address] [place] [address] [place], [place] [address] documented as of this encounter
--- OUTSIDE RECORDS SUMMARY | 2021-11-23 01:54 | XMS_ITS | Encounter Summary ---
:1945 Author Organization [facility] [place] [address] Care Team Providers Name Role Phone eLeanne Schultz MD Primary Care Provider Encounter Details Date Type Department Care Team Description 08/12/2014 Telephone Dermatology at [facility] Ni Zamudio MD [address] [facility] [place] [address] [facility] [phone] [place] [address] (Wo rk) Social History Tobacco Use Types Packs/Day Years Used Date Former Smoker Smokeless Tobacco: Never Used Alcohol Use Standard Drinks/Week Comments Yes 7 (1 standard drink = 0.6 oz pure alcoho l) Sex Assigned at Date Recorded Female 10/02/2020 6:58 PM EDT documented as of this encounter Miscellaneous Notes Telephone Encounter - Humberto Gill Z - 08/12/2014 11:33 AM EDT Leeanne called wanting to find out if we had any further information on what the suspected diagnoses was for lesion B in the last note. It looks like she is coming in later this month for another biopsy, but she is very anxious and wants to find out any and all information she can. I would suggest setting aside several minutes for this phone call. She can be reached at the cell number listed today. Thanks, Humberto documented in this encounter Plan of Treatment Upcoming Encounters Date Type Specialty Care Team Description 03/14/2022 Office Visit Dermatology [place] Edgar MD [facility] ER [address] CANAS[address]DER[address] [place], [place] [address] (Wo rk) documented as of this encounter Visit Diagnoses Not on filedocumented in this encounter Care Teams Soil Sort Worker Relationship Specialty Start Date End Date Leeanne Schultz MD PCP - General 10/28/13 [address] [place] [address] documented as of this encounter
--- OUTSIDE RECORDS SUMMARY | 2021-11-23 01:54 | XMS_ITS | Encounter Summary ---
:1945 Author Organization [facility] [place] [address] Care Team Providers Name Role Phone Mira Marino MD Primary Care Provider Encounter Details Date Type Department Care Team Description 10/07/2012 Orders Only Dermatology at [facility] [address] [place] [address] [facility] [phone] [address] [place], [place] [address] Social History Tobacco Use Types Packs/Day Years Used Date Former Smoker Sex Assigned at Date Recorded Female 10/02/2020 6:58 PM EDT documented as of this encounter Plan of Treatment Upcoming Encounters Date Type Specialty Care Team Description 03/14/2022 Office Visit Dermatology [place] Edgar MD [facility] ER [address] CANAS[address]DERMAT [place], [place] [address] (Wo rk) documented as of this encounter Visit Diagnoses Not on filedocumented in this encounter Care Teams Gear Coding Machine Operator Relationship Specialty Start Date End Date Mira Marino MD PCP - General 04/18/10 10/27/13 [facility] [address] [place] [address] [place] [address] documented as of this encounter
--- OUTSIDE RECORDS SUMMARY | 2021-11-23 01:54 | XMS_ITS | Encounter Summary ---
:1945 Author Organization [facility] [place] [address] Care Team Providers Name Role Phone Leeanne Schultz MD Primary Care Provider Reason for Visit Reason Onset Date Comments Referral 10/13/2013 Encounter Details Date Type Department Care Team Description 10/13/2013 Telephone Orthopaedics at [facility] Donnell Leiva MD Referral [facility] [place] [address] ORTHOPAEDIC SURGERY [phone] [place], [place] [address] (Wo rk) Social History Tobacco Use Types Packs/Day Years Used Date Former Smoker Sex Assigned at Date Recorded Female 10/02/2020 6:58 PM EDT documented as of this encounter Miscellaneous Notes Telephone Encounter - Cheyenne Hernandez - 10/13/2013 1:21 PM EDT Ask patient to verify the following: Full name: Leeanne Bush : 1945 Phone number: [phone] (home) Mailing address: [address] [facility] [address] 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 ALMOST A YEAR Has anyone ever seen you before for this issue? YES Have you had any of the following studies for this issue? ?? X-Ray YES - [place] ?? MRI YES - [facility] ?? CT Scan ?? LABS PODIATRISTS DR. PEREZ - [facility] - PH. [phone] DR. SPENCER MODI - [facility] - winter DR. SERGEI PATTON - [facility] - MOST RECENT Have you seen an Orthopaedic surgeon for the this issue? Have you ever had surgery for this issue? ONLY R FOOT - If YES and different than above: Who performed surgery? DR. SERGEI CARTER Where did you have the surgery (facility)? [facility] When? 2003 Phone # Fax# If patient is implanted with hardware fixation or joint prosthesis retrieve OPERATIVE REPORT and IMPLANT STICKERS. documented in this encounter Plan of Treatment Upcoming Encounters Date Type Specialty Care Team Description 03/14/2022 Office Visit Dermatology [place] Edgar MD [facility] [address]NAS[address]DERMAT [place], [place] [address] (Wo rk) documented as of this encounter Visit Diagnoses Not on filedocumented in this encounter Care Teams Purse Seining Hand Relationship Specialty Start Date End Date Leeanne Schultz MD PCP - General 10/28/13 [address] [place] [address] documented as of this encounter
--- OUTSIDE RECORDS SUMMARY | 2021-11-23 01:54 | XMS_ITS | Encounter Summary ---
:1945 [place] [address] Care Team Providers Name Role Phone Leeanne Schultz MD Primary Care Provider Encounter Details Date Type Department Care Team Description 06/29/2014 External [place] [address] Social History Tobacco Use Types Packs/Day [...] 03/14/2022 Office Visit Dermatology [place] Edgar MD [facility] [address]NA[address]DER[address] [place], [place] [address] (Wo rk) documented as of this encounter Visit Diagnoses Not on filedocumented in this encounter Care Teams Die Maintenance Technician Relationship Specialty Start Date End Date Leeanne Schultz MD PCP - General 10/28/13 [address] [place] [address] documented as of this encounter
--- OUTSIDE RECORDS SUMMARY | 2021-11-23 01:54 | XMS_ITS | Encounter Summary ---
:1945 [place] [address] Care Team Providers Name Role Phone Mira Marino MD Primary Care Provider Reason for Visit Reason Comments Skin Check Encounter Details Date Type Department Care Team Description 04/15/2013 Follow-Up Dermatology at [facility] Grover Zamudio MD Skin lesion (Primary Dx); [facility] [place] (actinic keratosis) [address] [place] [address] [facility] [phone] RD-DERMATOLOGY [place], [place] [address] (Wo rk) Social History Tobacco Use Types Packs/Day Years Used Date Former Smoker Sex Assigned at Date Recorded Female 10/02/2020 6:58 PM EDT documented as of this encounter Progress Notes Amy Quiroz RN - 04/21/2013 2:38 PM EST Quick Note: Spoke to pt, she understands the bx results. A) DF, nothing further needs to be done B) AK- discussed tx options, following clinically vs. carac vs. Ln2. Pt is leaving for [place] until August, will schedule her for when she returns and treat if clinically indicated Amy Quiroz RN - 04/21/2013 10:43 AM EST Quick Note: Left message for pt to call me back Plan: A) DF, nothing further needs to be done B) AK- need to discuss tx options Ni Zamudio MD - 04/15/2013 11:13 AM EST Images from the original note were not included. DERMATOLOGY ESTABLISHED PATIENT CLINIC NOTE Date of service: 04/15/2013 Kajal Bush : 1945 Provider: Ni Zamudio [...] August 2007, she had MIS treated in [place] ? Right lateral thigh. 6. 10/2006 Right lower back, mild to moderate DN , Excised 7. She grew up in [place] with a history of extensive sun [...] this 1.5mm punch biopsy specimen. 16. 03/04/13- DF unit or cyst. HPI Kajal Bush is a 67 y.o. female. Presents today for full melanoma skin check. She is concerned with a bump on her left nasal ala - AK proven biopsy on 04/07/12 in that area. She has an unusual sensation in the area that something is under the skin. In addition, she notes an itchy area on the right upper back. Also has scaly spot right dorsal hand Patient notes the following new or changing skin lesions or moles: no Performs self-skin exams? yes Have first degree relatives had skin screening? yes ADR: Allergies Allergen Reactions ??? Morphine Sulfate Unknown ??? Shellfish Derived ??? Nitrofurantoin Monohyd/M-Cryst Nausea And Vomiting MEDS: [...] feeling well Skin: denies other skin complaints MELANOMA SPECIFIC ROS: General: feeling well Constitutional: Denies unintentional weight loss, weakness, fever Respiratory: Denies cough, chest pain, shortness of breath Hepatic/GI: Denies abdominal pain, jaundice, vomiting Neurologic: Denies headache, visual disturbances, seizures, numbness, balance problems Musculosketetal: Denies bone pain (e.g. rib, spine, hip) Lymphatics: swollen glands or lumps Skin: denies new or changing skin lesions other than those (if any) noted in HPI EXAM General: NAD, pleasant, cooperative Skin: The entire skin surface was examined, including the face, neck, chest, abdomen, back. The arms and legs, including the palms, soles, fingers and between the toes. No lymphadenopathy, including the supraclavicular, cervical, axillary, and inguinal areas. Melanoma excision site scar was examined and palpated. There was no increase in pigmentation or induration at this site. Significant skin findings: A. Well healed scars. As per history. NER B. 0.5cm evenly shaped evenly pigmented macule right lower back. C. Flesh colored papule on scalp D. 0.2-0.3cm scaly irregular pink papule(s) on right dorsal hand x 1 E. SPECIMEN A: 0.3cm non specific flesh colored papule on right upper back x 1 F. SPECIMEN B: 0.3cm Non specific subtle pink macule left alar crease- symptomatic to patient 04/07/12- pathology: B - Skin, left alar crease, punch biopsy: 1. Actinic keratosis. 2. Papillary dermal fibrosis, suggestive of prior biopsy or treatment effect. 3. There is no basal cell carcinoma identified in multiple deeper levels examined of this 1.5mm punch biopsy specimen. ASSESSMENT/PLAN: A. Scars. H/o melanoma / BCC B. Nevus. Benign appearing. C. Dermal nevus. Benign appearing. Patient reassured. D. Actinic keratosis Procedure Note: Procedure: Destruction of lesion(s) with cryotherapy. Number: 1 Location: as above Discussed procedure and expectations including risks (including risk of hypopigmentation) and benefits. Verbal consent obtained. Frozen with LN2, 15-30 second thaw time, TWICE. There were no complications; the patient tolerated the procedure well. Post-procedure expectations and wound care were reviewed. E. Specimen A: DF, Doubt BCC Procedure: Skin biopsy by shave technique Location: right upper back Discussed indications for procedure and expectations including [...] were reviewed. Follow-up based on pathology results. F. Specimen B: AK vs. BCC Procedure: Skin biopsy by punch technique. Location: left nasal ala Discussed indications for the procedure and expectations including risks and benefits. Verbal consent obtained. Skin prep with alcohol. Local anesthesia: buffered 1% lidocaine with 1/100,000 epinephrine. A 2 mm punch biopsy to the level of the subcutis was performed. Wound closed with monofilament suture. There were no complications; the patient tolerated the procedure well. The wound was dressed. Post-procedure expectations (including discomfort management), wound care and activity restrictions were reviewed. Follow-up based on pathology results. Suture removal: 7 days Patient encouraged to perform self skin and lymph node exams. Discussed familial aspects of melanoma; first degree relatives encouraged to have skin screening F/U: RTC in 6 months for skin check. Patient instructed to call with questions or concerns. I am documenting this encounter acting as the scribe for and in the presence of Dr. Zamudio.: LEVI GONZALEZ LPN I performed the above scribed service and agree with the accuracy of the documentation in this encounter. Ni Zamudio MD Section of Dermatology [facility] documented in this encounter Plan of Treatment Upcoming Encounters Date Type Specialty Care Team Description 03/14/2022 Office Visit Dermatology [place] Edgar MD [facility] [address]NA[address]DERMAT [place], [place] [address] (Wo rk) Scheduled Orders Name Type Priority Associated Diagnoses Order S chedule Pathology Order Update Lab Routine Skin lesion Order ed: 04/15/2013 documented as of this encounter Procedures Procedure Name Priority Date/Time Associated Diagnosis Comme nts SPECIMEN TO Routine 04/15/2013 1:50 PM Skin lesion Results f or this PATHOLOGY (NON-OR) EST procedure are in the results section. SURGICAL PATHOLOGY Routine 04/15/2013 1:50 PM Res ults for this REPORT EST procedure are i n the results section. documented in this encounter Results Surgical Pathology Report (04/15/2013 1:50 PM EST) Component Value Ref Test Analysis Performed At [facility] gist Range Method Time Signature Surgical CERNER Pathology ? [facility] Report ? Provider: ?? NI ZAMUDIO ? Pt. Name: ?? HAJA CLARK, KAJAL Ureña ? Acc #: ?[id number] ? Pt. ? Col Date: ?? 04/15/20 13 ?/Sex: ?1945,(67 years),Female ? Rec Date: ?? 04/15/2013 ?LOC: ?HDM ? SURGICAL PATHOLOGY ? ---Pathologic Diagnosis--- ? A - Skin, right upper back, shave biopsy: ? 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 the biopsy specimen. ? B - Skin, left nasal alar crease, punch biopsy: ? Actinic keratosis. ? CR-0 ? Dictated by: ??Marni Gutierrez MD ? Dermatopathology Fellow ? As the attending phys ician, I attest that I examined the histologic slides, ? and confirm Dr. Marni Gutierrez' diagnosis. ? 04/16/13 ? BJM ? 04/16/13 Verified by: ? Herb PETER, PhD, Jose ? Dermatopatholo gist ? (Electronic Si gnature) ? The attending pathologist whose signature appears o n this report has ? reviewed all diagnostic slides and has edited the suzanne ss and/or ? microscopic portion of the report in rendering the fi nal pathologic ? diagnosis. ? ---Gross Description--- ? A - Labeled/Fixative: Right upper back, formalin. ? Quantity/Size: Single, 0.6 x 0.5 cm shave. ? Tissue Description: Asif pink skin. ? Sections/Processing: Inked, bisected. (T1) ? B - Labeled/Fixative: Left alar crease, formalin. ? Quantity/Size: Single, 0.3 cm punch excised to a dept h of 0.15 cm. ? Tissue Description: Asfi skin. ? Sections/Processing: Submitted in one piece. (T1) ??c jl ? ---Clinical Information--- ? Specimen Submitted: ? A - Skin, right upper back, shave biopsy (1) ? B - Skin, left nasal alar crease, 3mm punch (1) ? Clinical History: ? [facility] ? Provider: ?? NI ZAMUDIO ? Pt. Name: ?? HAJA CLARK, KAJAL Ureña ? Acc #: ?[id number] ? Pt. ? Col Date: ?? 04/15/20 13 ?/Sex: ?1945,(67 years),Female ? Rec Date: ?? 04/15/2013 ?LOC: ?HDM ? SURGICAL PATHOLOGY ? A -0.3 cm nonspecific flesh colored papule on right u pper back ? B -0.2 cm nonspecific subtle pink papule ? Clinical Diagnosis: ? A -DF versus doubt BCC ? B -AK versus BCC Specimen (Source) Anatomical Collection Method Collection Time Re ceived Time Location / / Volume Laterality 04/15/2013 1:50 PM EST Ni Zamudio MD PATHOLOGY/CYTOLOGY ORDERABLE S Performing Organization Address City/[facility]/ZIP [place] [address] [facility] [facility] Specimen to Pathology (NON-OR) (04/15/2013 1:50 PM EST) Specimen Anatomical Collection Method Collection Time Receive d Time (Source) Location / / Volume Laterality AP Specimen 04/15/2013 1:50 PM 3 1:50 EST PM EST Narrative CERNER MILLENNIUM - 04/15/2013 1:[address] Specimen requisition ordered. ??Separate Pathology report to follow Ni Zamudio MD PATHOLOGY/CYTOLOGY ORDERABLE S Performing Organization Address City/[facility] [place] [address] [employer] documented in this encounter Visit Diagnoses Diagnosis Skin lesion - Primary Unspecified disorder of skin and subcuta neous tissue AK (actinic keratosis) Actinic keratosis documented in this encounter Care Teams Outsole Cementer Relationship Specialty Start Date End Date Mira Marino MD PCP - General 04/18/10 10/27/13 HOSPITALIST SERVICES [address] [place] [address] [place] [address] documented as of this encounter
--- OUTSIDE RECORDS SUMMARY | 2021-11-23 01:54 | XMS_ITS | Encounter Summary ---
:1945 Author Organization [facility] [place] [address] Care Team Providers Name Role Phone Leeanne Schultz MD Primary Care Provider Encounter Details Date Type Department Care Team Description 11/03/2013 Hospital Encounter XRay [place] [facility] [place] foot pain [address] [place] [address] [place] [address] Social History Tobacco Use Types Packs/Day [...] mg Take 5 mg by mouth 0 05/1 tablet nightly. CELEBREX 200 mg capsule Take 200 mg by mouth 0 04/15/2015 as needed. loratadine (CLARITIN) 10 Take 10 mg by mouth 0 06/30/2014 mg tablet as needed. tretinoin (RETIN-A) 0.025 Apply topically [...] [place] Edgar MD [facility] ER [address] DIANA CANAS[place]DERMAT [place], [place] [address] (Wo rk) documented as of this encounter Procedures Procedure Name Priority Date/Time Associated Diagnosis Comme nts XR FOOT MINIMUM 3 Routine 11/03/2013 12:33 PM Left foot pain R esults for this VIEWS EDT procedure are i n the results section. documented in this encounter Results XR foot minimum 3 views (11/03/2013 12:33 PM EDT) Anatomical Region Laterality Modality Foot N/A Radiographic Imaging Specimen (Source) Anatomical Collection Method Collection Time Re ceived Time Location / / Volume Laterality 11/03/2013 12:33 PM EDT Narrative 11/03/2013 1:58 PM EDT Examination FOOT MIN 3 VIEWS/LEFT Clinical History L FOOT PLANTAR FASCIITIS Comparison None Technique Findings No erosions at the plantar calcaneal tub erosity where the plantar fascia inserts. ??No soft tissue calcifications . ??The osseous alignment is normal and no fracture. ??The left 1st MTP joint sp sarah is narrowed with small osteophyte formation. Impression ? 1. No erosions. ? 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 Procedure Note Letitia Syed MD - 11/03/2013Formatt ing of this note might be different from the original. Examination FOOT MIN 3 VIEWS/LEFT Clinical History L FOOT PLANTAR FASCIITIS Comparison None Technique Findings No erosions at the plantar calcaneal tub erosity where the plantar fascia inserts. No soft tissue calcifications. The osseous alignment is normal and no fracture. The left 1st MTP joint spac e is narrowed with small osteophyte formation. Impression 1. No erosions. 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 Donnell Leiva MD IMG DX ORDERABLES documented in this encounter Visit Diagnoses Diagnosis Left foot pain Pain in limb documented in this encounter Care Teams Life Skills Instructor Relationship Specialty Start Date End Date Leeanne Schultz MD PCP - General 10/28/13 [address] [place] [address] documented as of this encounter
--- OUTSIDE RECORDS SUMMARY | 2021-11-23 01:54 | XMS_ITS | Encounter Summary ---
:1945 Author Organization [facility] [place] [address] Care Team Providers Name Role Phone Mira Marino MD Primary Care Provider Encounter Details Date Type Department Care Team Description 09/07/2013 Orders Only Orthopaedics at [facility] [place] Donnell Leiva [place] [facility] [place] [address] ORTHOPAEDIC SURGERY [phone] [place], [place] [address] (Wo rk) Social History Tobacco Use Types Packs/Day Years Used Date Former Smoker Sex Assigned at Date Recorded Female 10/02/2020 6:58 PM EDT documented as of this encounter Plan of Treatment Upcoming Encounters Date Type Specialty Care Team Description 03/14/2022 Office Visit Dermatology [place] Edgar MD [facility] ER [address] DIANA CANAS-DERMAT [place], [place] [address] (Wo rk) documented as of this encounter Procedures Procedure Name Priority Date/Time Associated Diagnosis Comme nts FILM LIBRARY Routine 09/07/2013 8:43 AM Results f or this STORAGE ONLY MR EDT procedure ar e in ANKLE the results section. documented in this encounter Results Film Library- Storage only MR Ankle (09/07/2013 8:43 AM EDT) Anatomical Region Laterality Modality Other Specimen (Source) Anatomical Collection Method Collection Time Re ceived Time Location / / Volume Laterality 09/07/2013 8:43 AM EDT Narrative 10/14/2013 8:48 AM EDT This is a Non-reportable exam Procedure Note 10/14/2013 This is a Non-reportable exam Donnell Leiva MD IM FILM LIBRARY ORDERABLES documented in this encounter Visit Diagnoses Not on filedocumented in this encounter Care Teams Stone Repairer Relationship Specialty Start Date End Date Mira Marino MD PCP - General 04/18/10 10/27/13 H[facility]PITALIST SERVICES [address] [place] [address] [place] [address] documented as of this encounter
--- OUTSIDE RECORDS SUMMARY | 2021-11-23 01:54 | XMS_ITS | Encounter Summary ---
:1945 Author Organization [facility] [place] [address] Care Team Providers Name Role Phone Mira Marino MD Primary Care Provider Reason for Visit Reason Comments Skin Check h/o melanoma x 3 Encounter Details Date Type Department Care Team Description 11/01/2010 Follow-Up Dermatology Ni Zamudio MD Benign neoplasm of skin of trunk, except scrotum (Primary Dx); [facility] Per jenny history of malignant melanoma of skin [address] [place] [id number] [facility] [phone] [address]-DERMATOLOGY [place] [id number] (Wo rk) Social History Tobacco Use Types Packs/Day Years Used Date Former Smoker Sex Assigned at Date Recorded Female 10/02/2020 6:58 PM EDT documented as of this encounter Progress Notes Ni Zamudio MD - 11/01/2010 2:06 PM EDT DERMATOLOGY ESTABLISHED PATIENT CLINIC NOTE Date of service: 11/01/2010 Leeanne Bush : 1945 Provider: Ni Zamudio MD PROBLEM: Melanoma Check SKIN HISTORY: 1. She has family [...] August 2007, she had MIS treated in [place] ? Right lateral [...] a ruptured follicular unit or cyst. HPI Ms. Bush is a 65 y.o. year old female Here for a skin lesion exam with concerns of a medium brownpapule on the left upper thigh that she feels is slightly more raised. She has seen multiple providers at [facility] for [place] check; this is her first skin check with me. ADR: Shellfish derived, Morphine sulfate and Nitrofurantoin monohyd/m-cryst MEDS: Current outpatient prescriptions ordered prior to encounter Medication Sig Dispense Refill ??? amlodipine (NORVASC) 10 mg tablet Take [...] per tablet 1 Tablet(s), PO, Twice daily,PRN ??? tretinoin (RETIN-A) 0.025 % cream 1 Appl(s) as directed, Top, QHS ROS General: feeling well Skin: denies other [...] at this site. Significant skin findings: A. 0.5cm light brown regularly pigmented papule on the left buttock B.0.4cm Medium brown papule-left anterior thigh C.0.6cm evenly pigmented papule -left anterior shoulder ASSESSMENT/PLAN: Benign skin and LN exam A.B,C Nevi. Photo taken and given to patient. Will follow clinically. D. RTC 3 months Note initiated by: Melani Mooney LPN Routed to physician for review and changes: Ni Zamudio MD Section of Dermatology [facility] documented in this encounter Plan of Treatment Upcoming Encounters Date Type Specialty Care Team Description 03/14/2022 Office Visit Dermatology [place] Edgar MD [facility] [address] DIANA CANAS-[place]MAT [place], [place] [address] (Wo rk) documented as of this encounter Visit Diagnoses Diagnosis Benign neoplasm of skin of trunk, except scrotum - Primary Personal history of malignant melanoma o f skin documented in this encounter Care Teams Recycling Coordinator Relationship Specialty Start Date End Date Mria Marino MD PCP - General 04/18/10 10/27/13 HOSPITALIST SERVICES [address] [place] [address] [place] [address] documented as of this encounter
--- OUTSIDE RECORDS SUMMARY | 2021-11-23 01:54 | XMS_ITS | Encounter Summary ---
:1945 [place] [address] Care Team Providers Name Role Phone Mira Marino MD Primary Care Provider Reason for Visit Reason Comments Skin Check Encounter Details Date Type Department Care Team Description 04/07/2012 Follow-Up Dermatology at [facility] Grover Zamudio MD Neoplasm of uncertain behavior, site uns pecified (Primary Dx); [facility] Actinic keratosis [address] [place] [address] [facility] [phone] [address]-DERMATOLOGY [place], [place] [address] (Wo rk) Social History Tobacco Use Types Packs/Day Years Used Date Former Smoker Sex Assigned at Date Recorded Female 10/02/2020 6:58 PM EDT documented as of this encounter Progress Notes Amy Quiroz LPN - 04/09/2012 4:49 PM EST Quick Note: Spoke to pt ,she understands her biopsy results, due to her history I wanted to call her and give her information. RTC as scheduled in one year for a full skin check Zana Lovett LPN - 04/07/2012 9:03 AM EST DERMATOLOGY ESTABLISHED PATIENT CLINIC NOTE Date of service: 04/07/2012 Kajal Bush : 1945 Provider: Ni Zamudio [...] August 2007, she had MIS treated in [place] ? Right lateral [...] a ruptured follicular unit or cyst. HPI Kajal Bush is a 66 y.o. year old female presents for full skin exam. History as above. She reports a new lesion left forehead and complains of a reddened appearance on forehead. History of AKs hasused Carac in the past, uses Retin A regularly on face. Area on left alar crease was tx with LN2 in past but has not resolved. ADR: Allergies Allergen Reactions ??? Morphine Sulfate Unknown ??? Shellfish Derived ??? Nitrofurantoin Monohyd/M-Cryst Nausea And Vomiting MEDS: Current Outpatient Prescriptions on File Prior to Visit Medication Sig Dispense Refill ??? tretinoin (RETIN-A) [...] Twice daily,PRN ROS General: feeling well Skin: Lesion left forehead EXAM General: NAD, pleasant, cooperative. Skin: A total body skin exam except for areas covered by underwear was performed. This includes examination of the skin of the face, ears, neck, chest, axillae, left and right upper and lower extremities, hands and feet, abdomen, and except the areas covered by underwear were not examined. Significant skin findings: A. Stuck on warty papule left lateral brow B. 0.2-0.3cm scaly irregular pink papule(s): right lateral forehead C. Multiple, 0.3-0.5cm, medium-brown, evenly-pigmented macules and papules. All with regular pigmentpattern on dermoscopy. No pigmented lesions suspicious for melanoma. D. 0.6cm irregular pigmented macule right buttock E. 0.2cm pink macule left alar crease ASSESSMENT/PLAN: A.SK patient reassured B. Addisonlry AKs forehead continue topical tx C. Benign appearing nevi with even pigmentation and well defined margins are noted. D. Nevus r/o atypia Procedure: Skin biopsy. Location: right buttock Discussed indications for procedure and expectations including [...] were reviewed. Follow-up based on pathology results. E. AK r/o BCC Procedure: Skin biopsy by punch technique. Location: left alar crease Discussed indications for the procedure and expectations including risks and benefits. Verbal consent obtained. Skin prep with alcohol. Local anesthesia: buffered 1% lidocaine with 1/100,000 epinephrine. A 1.5mm punch biopsy to the level of the subcutis was performed. Wound closed with monofilament suture. There were no complications; the patient tolerated the procedure well. The wound was dressed. Post-procedure expectations (including discomfort management), wound care and activity restrictions were reviewed. Follow-up based on pathology results. Suture removal: 5-7 days F. RTC 1 year sooner prn Note initiated by: ZANA LOVETT LPN Routed to physician for review and changes: Ni Zamudio MD Section of Dermatology [facility] documented in this encounter Plan of Treatment Upcoming Encounters Date Type Specialty Care Team Description 03/14/2022 Office Visit Dermatology [place] Edgar MD ONE [facility] [address] DINAA CANAS-DERMAT [place], [place] [address] (Wo rk) documented as of this encounter Procedures Procedure Name Priority Date/Time Associated Diagnosis Comme nts SURGICAL PATHOLOGY Routine 04/07/2012 4:15 PM Res ults for this REPORT EST procedure are i n the results section. SPECIMEN TO Routine 04/07/2012 12:52 PM Neoplasm of Results for this PATHOLOGY (NON-OR) EST uncertain behavior, pr ocedure are in site unspecified the results section. documented in this encounter Results Surgical Pathology Report (04/07/2012 4:15 PM EST) Component Value Ref Test Analysis Performed At [facility] gist Range Method Time Signature Surgical CERNER Pathology ? [facility] Report ? Provider: ?? NI ZAMUDIO ? Pt. Name: ?? HAJA CLARK, KAJAL R ? Acc #: ?[id number] ? Pt. ? Col Date: ?? 2 ? /Sex: ?1945,(66 years),Female ? Rec Date: ?? 04/07/2012 ? LOC: ?[facility] ? SURGICAL PATHOLOGY ? ---Pathologic Diagnosis--- ? 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 appear negative in the plane of sections examined. ? B - Skin, left alar crease, punch biopsy: ?1. ??Actinic keratosis. ?2. ??Papillary d ermal fibrosis, suggestive of prior biopsy or treatment ? effect. ?3. ??There is no basal cell carcinoma identified in multiple deeper ? levels examined of this 1.5mm punch biopsy specimen. ? CR-0 ? Dictated by: ??Sravanthi Talavera MD ? Dermatopathology Fellow ? As the attending phys kayla, I attest that I examined the histologic slides, ? and confirm Dr. Sravanthi Talavera's diagnosis. ? 04/08/12 ? AJE ? 04/08/12 Verified by: ? Neto Crawley MD ? Dermatopatholo gist ? (Electronic Si gnature) ? The attending pathologist whose signature appears o n this report has ? reviewed all diagnostic slides and has edited the suzanne ss and/or ? microscopic portion of the report in rendering the fi nal pathologic ? diagnosis. ? ---Microscopic Description--- ? Slides reviewed, microscopic description not recorded . ? ---Gross Description--- ? A - Labeled/Fixative: Right buttock, formalin. ? Qty/Size/Weight: ?Single shave, 0.8 cm, callahan with a 0.6-cm, light brown ? macule. ? Sections/Processing: ??Inked. ??Trisected. ??(T1) ? B - Labeled/Fixative: Left alar crease, formalin. ? Qty/Size/Weight: ?Single punch, 0.15 cm, callahan. ? Sections/Processing: ??(T1) ??aje/SNS ? [facility] ? Provider: ?? NI ZAMUDIO ? Pt. Name: ?? HAJA CLARK, KAJAL Ureña ? Acc #: ?[id number] ? Pt. ? Col Date: ?? 2 ? /Sex: ?1945,(66 years),Female ? Rec Date: ?? 04/07/2012 ? LOC: ?[facility] ? SURGICAL PATHOLOGY ? ---Clinical Information--- ? Specimen Submitted: ? A - Right buttock, shave (1) ? B - Skin, left alar crease, 1.5 mm punch (1) ? Clinical History/Diagnosis: ? A - 0.6-cm, irregular pigmented macule / nevus R/O at ypia ? B - 0.2-cm, pink macule / AK vs BCC Specimen (Source) Anatomical Collection Method Collection Time Re ceived Time Location / / Volume Laterality 04/07/2012 4:15 PM EST Ni Zamudio MD PATHOLOGY/CYTOLOGY ORDERABLE S Performing Organization Address City/[facility]/[place] [address] [employer] Specimen to Pathology (NON-OR) (04/07/2012 12:52 PM EST) Specimen Anatomical Collection Method Collection Time Receive d Time (Source) Location / / Volume Laterality AP Specimen 04/07/2012 12:52 04/07/2012 PM EST 12:52 PM EST Narrative CERNER MILLENNIUM - 04/07/2012 12:52 PM EST Specimen requisition ordered. ??Separate Pathology report to follow Ni Zamudio MD PATHOLOGY/CYTOLOGY ORDERABLE S Performing Organization Address City/[facility] [place] [address] [employer] documented in this encounter Visit Diagnoses Diagnosis Neoplasm of uncertain behavior, site uns pecified - Primary Actinic keratosis documented in this encounter Care Teams Corporate Risk Analyst Relationship Specialty Start Date End Date Mira Marino MD PCP - General 04/18/10 10/27/13 HOSPITALIST SERVICES [address] [place] [address] [place] [address] documented as of this encounter
--- OUTSIDE RECORDS SUMMARY | 2021-11-23 01:54 | XMS_ITS | Encounter Summary ---
:1945 [place] [address] Care Team Providers Name Role Phone Kajal Schultz MD Primary Care Provider Reason for Visit Reason Comments Skin Check Encounter Details Date Type Department Care Team Description 10/15/2014 [facility]; [facility] Personal history of malignan t melanoma of skin [address] [place] [address] [facility] [phone] RD-DERMATOLOGY [place] [address] (Wo rk) Social History Tobacco Use Types Packs/Day Years Used Date Former Smoker Smokeless Tobacco: Never Used Alcohol Use Standard Drinks/Week Comments Yes 7 (1 standard drink = 0.6 oz pure alcoho l) Sex Assigned at Date Recorded Female 10/02/2020 6:58 PM EDT documented as of this encounter Progress Notes Ni Zamudio MD - 10/15/2014 8:16 AM EDT Images from the original note were not included. DERMATOLOGY - ESTABLISHED PATIENT FOLLOW-UP Date of service: 10/15/2014 Kajal Bush : 1945 Dermatology provider- Chris Zamudio MD Chief Complaint Patient presents with ??? Skin Check Skin History: 1. She has family history [...] August 2007, she had MIS treated in [place] ? Right lateral thigh. 6. 10/2006 Right lower back, mild to moderate DN , Excised 7. She grew up in [place] with a history of extensive sun exposure. [...] 18. 2015, MIS, right forearm, WLE 19. 2015, severely atypical intraepidermal melanocytic proliferation arising in a nevus, excised HPI: Ms. Kajal Bush is a 69 y.o. female. Presents to clinic today for a full skin exam. She was lastseen in Dermatology on 08/24/[address] Kaminski and Dr. Rojas. Patient just completed treatment with Carac to the face last week. Patient states that she monitors her skin and has not noticed any areas of concern. Patient Active Problem List Diagnosis Code ??? [...] in no noticeable distress. - Skin: A total body skin exam except for the areas covered by underwear was performed. This includes examination of the skin of the face, ears, neck, chest, axillae, left and right upper and lower extremities, hands, feet, abdomen, and back. Genitalia, buttocks and breasts were also examined with patient consent. Specific skin findings: A. 1.0 cm slightly irregular pigmented patch located on the left lateral arm B. Right forearm: Scattered keratoses and lentigines adjacent to the scar . No worrisome features under dermoscopy. C. Soft, mobile 3 cm lipoma right medial AC fossa D. 0.1cm firm, round, white subcutaneous papules scattered on the forehead E. Melanoma scars located on the left upper arm was examined and palpated, no nodularity or repigmentation. Verbal consent obtained for photo today. Diagnosis/Assessment/Treatment Plan: A. Lentigo rule out Atypia Procedure: Skin biopsy by shave technique Location: Left lateral arm Discussed indications for procedure and expectations including [...] were reviewed. Follow-up based on pathology results. B. Seborrheic Keratoses/Lentigines - Patient reassured areas are benign in nature. C. Lipoma - reassured of benign nature. No treatment indicated. D: Milia- Extraction not recommended at this time due to the depth of the papules. Recommended continue use of Retin-A. If this treatment does not help as expected, patient can return to the clinic forextraction. Patient informed this is a cosmetic procedure and not covered by insurance, patient gaveverbal understanding. Quoted $150.00.. E. H/o multiple melanomas s/p WLE - healing well. Reassured patient. No nodularity or other concerning features. Follow-up: RTC: 3 months as scheduled. Instructed to call for questions or concerns. Micki Daugherty, Clinical Scribe, am documenting this encounter acting as the scribe for and in the presence of Dr.Denise Zamudio I performed the above scribed service and agree with the accuracy of the documentation in this encounter. Chris Zamudio MD Section of Dermatology [facility] documented in this encounter Plan of Treatment Upcoming Encounters Date Type Specialty Care Team Description 03/14/2022 Office Visit Dermatology [place] Edgar MD [facility] ER DR DIANA CANAS-DERMAT [place], [place] [address] (Wo rk) documented as of this encounter Procedures Procedure Name Priority Date/Time Associated Diagnosis Comme nts SPECIMEN TO Routine 10/15/2014 9:01 AM Skin lesion Results f or this PATHOLOGY (NON-OR) EDT procedure are in the results section. SURGICAL PATHOLOGY Routine 10/15/2014 9:01 AM Res ults for this REPORT EDT procedure are i n the results section. documented in this encounter Results Surgical Pathology Report (10/15/2014 9:01 AM EDT) Component Value Ref Test Analysis Performed At [facility] gist Range Method Time Signature Surgical CERNER Pathology ? [facility] Report ? Provider: ?? NI ZAMUDIO ? Pt. Name: ?? [facility] ER, KAJAL R ? Acc #: ?[id number] ? Pt. ? Col Date: ?? 5 ? /Sex: ?1945,(69 years),Female ? Rec Date: ?? 10/15/2014 ? LOC: ?HDM ? SURGICAL PATHOLOGY ? ---Pathologic Diagnosis--- ? 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 to the depth of 0.25 mm (see template) ? Specimen: ? Skin, left lateral arm , shave biopsy ? Histologic Type: ?Malignant melanoma ? Ulceration: ? Not identified ? Depth of Invasion: ?0.25 mm ? Ronaldo's Level: ?II ? Regression: ? Not identified ? Vascular Invasion: ?Not identified ? Perineural Invasion: ?Not identified ? Microscopic Satellites: Cannot assess ? Dermal mitoses per mm2: 0 ? Tumor infiltrating ? lymphocytes: ?Absent ? Solar Elastosis: ?Present ? Associated Nevus: ? Not identified ? Margins: ? Peripheral Margins: ? Involved by melanoma in sit u ? Deep Margin: ?Melanoma in situ close to deep edge along adnexal ? structures ? Pathologic TNM Codes: ?? pT1a ? Dictated by: ??Dong Larsen, DO ? Dermatopathology Fellow ? As the attending phys kayla, I attest that I examined the histologic slides, ? and confirm Dr. Dong Larsen's diagnosis. ? [facility] ? Provider: ?? NI ZAMUDIO ? Pt. Name: ?? HAJA CLARK, KAJAL Ureña ? Acc #: ?[id number] ? Pt. ? Col Date: ?? 5 ? /Sex: ?1945,(69 years),Female ? Rec Date: ?? 10/15/2014 ? LOC: ?HDM ? SURGICAL PATHOLOGY ? CR-0 ? 10/18/14 ? DBW ? 10/20/14 Verified by: ? Herb PETER, PhD, Jose ? Dermatopatholo gist ? (Electronic Si gnature) ? The attending pathologist whose signature appears o n this report has ? reviewed all diagnostic slides and has edited the suzanne ss and/or ? microscopic portion of the report in rendering the fi nal pathologic ? diagnosis. ? ---Microscopic Description--- ? Immunohistochemistry Studies: ? Formalin-fixed, paraffin-embedded tissue sections are studied using the ? polymer technique wit h appropriate positive and negative controls. ??These ? IHC studies provide [facility] pathologist with adjunctive diagnostic information. ? Antibody specificity has been verified by testing antibodies on a series of ? in-house tissues with known immunohistochemical perfo rmance ? characteristics. The clinical interpretation of any antibody positive ? staining or its absence is evaluated within the ryan xt of clinical ? presentation, morphol ogy, histopathological criteria and other diagnostic ? tests. ? Block ?Antibody ?Result (Positive/Negat mejia) ? A1 ? Melan-A ?Highlights melanocy israel ? ---Gross Description--- ? A - Labeled/Fixative: L. Lateral arm, formalin. ? Quantity/Size: Single, 1.0 x 0.7 x 0.1 cm. ? Tissue Description: Shave of mottled callahan-white callahan-br own skin. ? Sections/Processing: Inked and quadrisected. (T1) ??e jr ? ---Clinical Information--- ? Specimen Submitted: ? A - Skin, left lateral arm, shave biopsy ? Clinical History: ? 1.0 cm slightly irregular patch located on the left l ateral arm ? Clinical Diagnosis: ? Lentigo, rule atypia Specimen (Source) Anatomical Collection Method Collection Time Re ceived Time Location / / Volume Laterality 10/15/2014 9:01 AM EDT Ni Zamudio MD PATHOLOGY/CYTOLOGY ORDERABLE S Performing Organization Address City/[facility]/[place] [address] CERNER CloudMadeENNIUM Specimen to Pathology (NON-OR) (10/15/2014 9:01 AM EDT) Specimen Anatomical Collection Method Collection Time Receive d Time (Source) Location / / Volume Laterality AP Specimen 10/15/2014 9:01 AM 5 9:01 EDT AM EDT Narrative CERNER MILLENNIUM - 10/15/2014 9:01 AM E DT Specimen requisition ordered. ??Separate Pathology report to follow Ni Zamudio MD PATHOLOGY/CYTOLOGY ORDERABLE S Performing Organization Address City/[facility]/ZIP [facility] [place] [place] [address] CERNER Divide[employer]UM documented in this encounter Visit Diagnoses Diagnosis Skin lesion Unspecified disorder of skin and subcuta neous tissue Personal history of malignant melanoma o f skin documented in this encounter Care Teams Cvir Tech Relationship Specialty Start Date End Date Kajal Schultz MD PCP - General 10/28/13 [address] [place] [address] documented as of this encounter
--- OUTSIDE RECORDS SUMMARY | 2021-11-23 01:54 | XMS_ITS | Encounter Summary ---
:1945 Author Organization [facility] [place] [address] Care Team Providers Name Role Phone Leeanne Schultz MD Primary Care Provider Reason for Visit Reason Comments Other Encounter Details Date Type Department Care Team Description 07/13/2014 Telephone Dermatology at [facility] Ni Zamudio MD [address] [facility] [place] [address] [facility]-DERMATOLOGY [phone] [place], [place] [address] (Wo rk) Social History Tobacco Use Types Packs/Day Years Used Date Former Smoker Smokeless Tobacco: Never Used Alcohol Use Standard Drinks/Week Comments Yes 7 (1 standard drink = 0.6 oz pure alcoho l) Sex Assigned at Date Recorded Female 10/02/2020 6:58 PM EDT documented as of this encounter Miscellaneous Notes Telephone Encounter - Humberto Gill - 07/13/2014 3:44 PM EDT Leeanne called returning Mica's call re: Pre-Surgery questions. She can be reached at the home numberlisted. Thanks, Humberto Beal I am copying Tracy in Mica's absence today. documented in this encounter Plan of Treatment Upcoming Encounters Date Type Specialty Care Team Description 03/14/2022 Office Visit Dermatology [place] Edgar MD [facility] ER DR DIANA CANAS-DERMAT [place], [place] [address] (Wo rk) documented as of this encounter Visit Diagnoses Not on filedocumented in this encounter Care Teams Spine Surgeon Relationship Specialty Start Date End Date Leeanne Schultz MD PCP - General 10/28/13 [address] [place] [address] documented as of this encounter
--- OUTSIDE RECORDS SUMMARY | 2021-11-23 01:54 | XMS_ITS | Encounter Summary ---
:1945 Author Organization [facility] [place] [address] Care Team Providers Name Role Phone Leeanne Schultz MD Primary Care Provider Reason for Visit Reason Comments Other Encounter Details Date Type Department Care Team Description 07/06/2014 Telephone Dermatology at [facility] Ni Zamudio MD [address] [facility] [place] [address] [facility]-DERMATOLOGY [phone] [place], [place] [address] (Wo rk) Social History Tobacco Use Types Packs/Day Years Used Date Former Smoker Smokeless Tobacco: Never Used Alcohol Use Standard Drinks/Week Comments Yes 7 (1 standard drink = 0.6 oz pure alcoho l) Sex Assigned at Date Recorded Female 10/02/2020 6:58 PM EDT documented as of this encounter Miscellaneous Notes Telephone Encounter - Humberto Gill - 07/19/2014 4:11 PM EDT LM on home nbr asking pt to call back to schedule f/u appt. Telephone Encounter - Humberto Gill - 07/06/2014 3:09 PM EST LM w/ to have pt call back to schedule f/u appt. Telephone Encounter - Humberto Gill - 07/06/2014 3:05 PM EST ----- Message from Melani Snyder sent at 06/30/2014 3:02 PM EST ----- Full skin hx melanoma documented in this encounter Plan of Treatment Upcoming Encounters Date Type Specialty Care Team Description 03/14/2022 Office Visit Dermatology [place] Edgar MD [facility] DR DIANA CANAS-DERMAT [place], [place] [address] (Wo rk) documented as of this encounter Visit Diagnoses Not on filedocumented in this encounter Care Teams Sr. Logistics Analyst Relationship Specialty Start Date End Date Leeanne Schultz MD PCP - General 10/28/13 [address] [place] [address] documented as of this encounter
--- OUTSIDE RECORDS SUMMARY | 2021-11-23 01:54 | XMS_ITS | Encounter Summary ---
:1945 Author Organization [facility] [place] [address] Care Team Providers Name Role Phone Leeanne Schultz MD Primary Care Provider Encounter Details Date Type Department Care Team Description 07/12/2014 Orders Only Dermatology at [facility] Ni Zamudio MD [address] [facility] [place] [address] D[address] CANAS-DERMATOLOGY [phone] [place] [address] (Wo rk) Social History Tobacco Use Types Packs/Day Years Used Date Former Smoker Smokeless Tobacco: Never Used Alcohol Use Standard Drinks/Week Comments Yes 7 (1 standard drink = 0.6 oz pure alcoho l) Sex Assigned at Date Recorded Female 10/02/2020 6:58 PM EDT documented as of this encounter Progress Notes Mica Patton LPN - 07/12/2014 1:26 PM EDT Labels printed for upcoming surgical procedure with Ni Patton LPN documented in this encounter Plan of Treatment Upcoming Encounters Date Type Specialty Care Team Description 03/14/2022 Office Visit Dermatology [place] Edgar MD [facility] DR DIANA CANAS-DERMAT [place], [place] [address] (Wo rk) documented as of this encounter Visit Diagnoses Not on filedocumented in this encounter Care Teams Key Attendant Relationship Specialty Start Date End Date Leeanne Schultz MD PCP - General 10/28/13 [address] [place] [address] documented as of this encounter
--- OUTSIDE RECORDS SUMMARY | 2021-11-23 01:54 | XMS_ITS | Encounter Summary ---
:1945 Author Organization [facility] [place] [address] Care Team Providers Name Role Phone Mira Marino MD Primary Care Provider Reason for Visit Reason Onset Date Comments Other 02/14/2011 PA for Tretinoin 0.0 25% cream Encounter Details Date Type Department Care Team Description 02/14/2011 Telephone Dermatology Ni Zamudio MD Other (PA for [facility]in [facility] 0.[facility] 25% cream) [address] [place] [id number] [facility] [phone] RD-DERMATOLOGY [place] [address] (Wo rk) Social History Tobacco Use Types Packs/Day Years Used Date Former Smoker Sex Assigned at Date Recorded Female 10/02/2020 6:58 PM EDT documented as of this encounter Miscellaneous Notes Telephone Encounter - Amy Quiroz LPN - 02/22/2011 11:08 AM EDT annie Romeo Jennifer Telephone Encounter - Stephy Oshea - 02/14/2011 9:[address] ZAMUDIO PT Pharmacy faxed us stating that Tretinoin needs a prior authorization through pts insurance company. What is the diagnosis for the patient to use this medication? Stephy Herbert documented in this encounter Plan of Treatment Upcoming Encounters Date Type Specialty Care Team Description 03/14/2022 Office Visit Dermatology [place] Edgar MD [facility] [address] DIANA CANAS-DERMAT [place], [place] [address] (Wo rk) documented as of this encounter Visit Diagnoses Not on filedocumented in this encounter Care Teams Director Cloud Transformation Relationship Specialty Start Date End Date Mira Marino MD PCP - General 04/18/10 10/27/13 [facility] [address] [place] [address] [place] [address] documented as of this encounter
--- OUTSIDE RECORDS SUMMARY | 2021-11-23 01:54 | XMS_ITS | Encounter Summary ---
:1945 [place] [address] Care Team Providers Name Role Phone Mira Marino MD Primary Care Provider Encounter Details Date Type Department Care Team Description 04/18/2010 Follow-Up Dermatology Arnaldo Hansen MD [facility] [place] [address] DERMATOLOGY DEPT[address] [phone] [place], [place] [address] (Wo rk) Social History Tobacco Use Types Packs/Day Years Used Date Never Assessed Sex Assigned at Date Recorded Female 10/02/2020 6:58 PM EDT documented as of this encounter Plan of Treatment Upcoming Encounters Date Type Specialty Care Team Description 03/14/2022 Office Visit Dermatology [place] Edgar MD [facility] ER DR DIANA CANAS-DERMAT [place], [place] [address] (Wo rk) documented as of this encounter Visit Diagnoses Not on filedocumented in this encounter Care Teams Starch And Prosize Mixer Relationship Specialty Start Date End Date Mira Marino MD PCP - General 04/18/10 10/27/13 [facility] [address] [place] [address] [address] [place], [place] [id number] documented as of this encounter
--- OUTSIDE RECORDS SUMMARY | 2021-11-23 01:54 | XMS_ITS | Encounter Summary ---
:1945 Author Organization [facility] Address [place] [id number] Care Team Providers Name Role Phone Mira Marino MD Primary Care Provider Reason for Visit Reason Comments Skin Lesion Encounter Details Date Type Department Care Team Description 09/13/2010 Follow-Up Dermatology Ni Zamudio MD Personal history of malignant melanoma o f skin (Primary Dx); [facility] Ski n lesion; Drive DR Neoplasm of uncertain behavior of skin [address] [phone] RD-DERMATOLOGY [place] [address] (Wo rk) Social History Tobacco Use Types Packs/Day Years Used Date Never Assessed Sex Assigned at Date Recorded Female 10/02/2020 6:58 PM EDT documented as of this encounter Progress Notes Ni Zamudio MD - 09/13/2010 4:00 PM EDT DERMATOLOGY ESTABLISHED PATIENT CLINIC NOTE Date of service: 09/13/2010 Kajal Bush : 1945 Provider: Ni Zamudio MD Chief Complaint Patient presents with ??? Skin Lesion SKIN HISTORY: 1. She has family history of melanoma in her brother. 2. Melanoma.Lleft lateral cheek in 08/1999, with negative SLNB. The Breslow depth was 1.24 mm. 3. History of dysplastic nevi and ? BCC s 4. 2009 Basal cell carcinoma on her left mid back, excised 5. 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 ? August 2007, she had MIS treated in [place]. 6. 10/2006 Right lower back, mild to moderate DN , Excised 7. She grew up in [place] with a history of extensive sun exposure. 8. Left leg BCC, 10/1999 (outside path) 9. Right shoulder BCC, 04/2000 (outside path) 10. Left arm, BCC, 10/2000 (outside path) 11. Left upper inner arm, mild-mod DN, 04/2001 (outside path) 12. Left upper chest, BCC, 11/2001 (outside path) 13. Right lower back, mild DN, 02/2006 (outside path) HPI Kajal Bush is a 64 y.o. year old female established pt to dermatology; new to me , here today due to a crusty lesion inside her L ear x 5 months ADR: Allergies Allergen Reactions ??? Shellfish Derived [...] complaints EXAM General: NAD, pleasant, cooperative Skin: Spot check of the L Ear Significant skin findings: A. 0.3 cm pink scaly papule located on distal external auditory canal of the L ear ASSESSMENT/PLAN: A. Non specific scaly papule Procedure: Skin biopsy by punch technique. Location:distal external auditory canal of the L ear Discussed indications for the procedure and expectations including risks and benefits. Verbal consent obtained. Skin prep with alcohol. Local anesthesia: buffered 1% lidocaine with 1/100,000 epinephrine. A 2 mm punch biopsy to the level of the subcutis was performed. There were no complications; the patient tolerated the procedure well. The wound was dressed. Post-procedure expectations (including discomfort management), wound care and activity restrictions were reviewed. Follow-up based on pathology results. No sutures , treated with electric cautery B. RTC in October with me for a full skin check Note initiated by: KARYN GO LPN Routed to physician for review and changes: Ni Zamudio MD Section of Dermatology [facility] documented in this encounter Plan of Treatment Upcoming Encounters Date Type Specialty Care Team Description 03/14/2022 Office Visit Dermatology [place] Edgar MD [facility] DR DIANA CANAS-DERMAT [place], [place] [address] (Wo rk) Scheduled Orders Name Type Priority Associated Diagnoses Order S chedule Skin Biopsy Dermatology Routine Skin lesion Ordered: 2010 Specimen to Pathology Lab Routine Skin lesion Ordere d: 09/13/2010 (surgical or derm) documented as of this encounter Procedures Procedure Name Priority Date/Time Associated Diagnosis Comme nts SURGICAL PATHOLOGY Routine 09/13/2010 4:28 PM Res ults for this REPORT EDT procedure are i n the results section. documented in this encounter Results SURGICAL PATHOLOGY REPORT (09/13/2010 4:28 PM EDT) Component Value Ref Test Analysis Performed At [facility] gist Range Method Time Signature Surgical CERNER Pathology ? Formerly named [facility] Report ? Provider: ?? NI ZAMUDIO ? Pt. Name: ?? HAJA ER, KAJAL R ? Acc #: ?[id number] ? Pt. ? Col Date: ?? 1 ? /Sex: ?1945,(64 years),Female ? Rec Date: ?? 09/13/2010 ? LOC: ?4M ? SURGICAL PATHOLOGY ? ---Pathologic Diagnosis--- ? 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 unit or cyst. ? CR-0 ? Dictated by: ? Rob Zavala MD ?Dermatopathology Fellow ? As the attending phys kayla, I attest that I examined the histologic slides, ? and confirm Dr. Rob Zavala's diagnosis. ? 09/14/10 ? VMS ? 09/14/10 Verified by: ? Yang PETER, Rob Villalpando ? Dermatopatholo gist ? (Electronic Si gnature) ? The attending pathologist whose signature appears o n this report has ? reviewed all diagnostic slides and has edited the suzanne ss and/or ? microscopic portion of the report in rendering the fi nal pathologic ? diagnosis. ? ---Comment--- ? Multiple deeper levels have been examined. ? ---Microscopic Description--- ? Slides reviewed, microscopic description not recorded . ? ---Gross Description--- ? Labeled/Fixative: ? Labeled with the patient's na me and medical ? record number, scott zamorano. ? Qty/Size/Weight: ?Single shave, 0.2 cm, granul ar, callahan-white ? fragments of skin. ? Sections/Processing: ??(T1) ??vms/PPS ? ---Clinical Information--- ? Specimen Submitted: ? A - Skin, L distal external auditory canal, punch (1) ? Clinical History/Diagnosis: ? 0.3-cm pink scaly papule on left distal external verónica tory canal. ? Nonspecific history of melanoma in area. Specimen (Source) Anatomical Collection Method Collection Time Re ceived Time Location / / Volume Laterality 09/13/2010 4:28 PM EDT Ni Zamudio MD PATHOLOGY/CYTOLOGY ORDERABLE S Performing Organization Address City/State/ZIP [place] [address] HOSPITAL LABORATORY [facility] documented in this encounter Visit Diagnoses Diagnosis Personal history of malignant melanoma o f skin - Primary Skin lesion Unspecified disorder of skin and subcuta neous tissue Neoplasm of uncertain behavior of skin documented in this encounter Care Teams Shear Assembler Relationship Specialty Start Date End Date Mira Marino MD PCP - General 04/18/10 10/27/13 HOSPITALIST SERVICES [address] [place] [address] [place] [address] documented as of this encounter
--- OUTSIDE RECORDS SUMMARY | 2021-11-23 01:54 | XMS_ITS | Encounter Summary ---
:1945 Author Organization [facility] [place] [address] Care Team Providers Name Role Phone Mira Marino MD Primary Care Provider Reason for Visit Reason Comments Procedure Encounter Details Date Type Department Care Team Description 10/15/2012 Procedure visit Dermatology at [facility] Maritza Brito MD (Primary Dx) [address] [place] [address] [facility] [phone] [address]-DERMATOLOGY [place] [id number] Social History Tobacco Use Types Packs/Day Years Used Date Former Smoker Sex Assigned at Date Recorded Female 10/02/2020 6:58 PM EDT documented as of this encounter Last Filed Vital Signs Vital Sign Reading Time Taken Comments Blood Pressure 127/83 10/15/2012 9:26 AM EDT Pulse - - Temperature - - Respiratory Rate - - Oxygen Saturation - - Inhaled Oxygen Concentration - - Weight - - Height - - Body Mass Index - - documented in this encounter Patient Instructions Patient InstructionsSandrita Kumari LPN - 10/15/2012 9:52 AM EDT Section of Dermatology Treatment and Wound Care Instructions Wound Care Instructions: POST OPERATIVE INSTRUCTIONS Wash your hands before changing the dressing. The dressing on the side should remain in place and dry until Saturday morning, then dressing should then be removed gently. [...] lbs) and bending for a period of 3 weeks. The sutures should be removed in 7 days. If you have any questions, please contact the clinic during the day at . You may also contact your nurse: Sandrita during the day at . In the case of urgency after 5PM and on weekends, please call the hospital number and ask for the Mobile Service Rv Technician director of customer acquisition. Doctor Maritza Mcdowell MD Nurse Sandrita documented in this encounter Progress Notes Maritza Vazquez - 10/24/2012 5:29 PM EDT Quick Note: DERMATOLOGY - RESULT NOTE Spoke with patient over the phone to discuss with her the pathology results from the excision performed on her Left anterior shoulder on 10/15/12. Pathology showed a dysplastic compound nevus with severe atypia and lymphocytic inflammation, margins appear negative as well as a scar. Discussed with pt that fortunately the margins are negative for nevus and for the scar, meaning that the whole dysplastic nevus was removed. Pt reassured. I discussed with patient the dermatopathologist observation that the lesion in this re-excision hasgreater atypia, and it is not clear for them if this is part of the same lesion, or a separate adjacent lesion. Clinically, there was no pigmented lesion adjacent to the scar at time of evaluation, so I favor itis in fact the same lesion. Patient also denies ever noticing a pigmented lesion adjacent to her scar. In any case, the severely dysplastic nevus was fortunately completely excised with clear margins and no further treatment is required. Pt reassured. Ms. Bush reports her excision site is healing well. She reports the is a red bubble in the center of the scar. I explained to her that this may be an extruding (spitting) suture. Advised to call if fails to resolve spontaneously. Given her history of melanoma, I encouraged patient to continue to practice diligent sun protectionand to continue to have routine skin checks with her setter out in [place]. Patient voiced understanding and agreement. All her questions were answered to her satisfaction. Encouraged to call with any questions or concerns. Maritza Mcdowell MD Resident in Dermatology [facility] Cm Kaminski III, MD - 10/20/2012 5:44 PM EDT I was the supervising physician working with dermatology resident Dr. Maritza Alvarez in the dermatology clinic during this patient visit. The level of Resident supervision for this patient visit was indirect supervision with direct supervision immediately available. (definition: [facility] GME Policy Statement on Graduate Medical Education, Supervision of Graduate Medical Trainees) I was immediately available to Dr. Alvarez for questions and discussion regarding this visit. I have reviewed her encounter note details and level of service. Maritza Vazquez - 10/16/2012 8:20 AM EDT Dermatology Resident - Surgical Procedure Note Date of Service: 10/15/2012 Name: Kajal Bush : 1945 CC: Here for excision of dysplastic nevus HPI: Ms. Bush is a 67 y.o. year old female with a history of melanoma, referred by PCP Mira Marino for the excision of a biopsy-proven moderately dysplastic compound nevus on the Left anterior shoulder which was biopsied by a setter out in [place] on 07/02/12 (see pathology report below). Pt is feeling well overall without complaints. Took all his scheduled medications this AM. Review of patient's medical and allergy history: - History of joint replacement within the last 2 years? denies - History of artificial heart valve(s)? denies - Pacemaker or defibrillator? denies - History of need for antibiotics prior to dental work? denies - Patient on blood thinners? ?? Aspirin: denies ?? Coumadin: denies ?? Plavix: denies ?? Other: Arthrotec which contains and NSAID - Allergy to latex, iodine, lidocaine, or epinephrine? denies PMH: Past Medical History Diagnosis Date ??? Melanoma ??? Basal cell carcinoma MEDS: Current Outpatient Prescriptions on File Prior [...] per tablet 1 Tablet(s), PO, Twice daily,PRN ALL: Allergies Allergen Reactions ??? Morphine Sulfate Unknown ??? Shellfish Derived ??? Nitrofurantoin Monohyd/M-Cryst Nausea And Vomiting ROS: Gen: Patient feeling well without complaint. Skin: As per HPI. No other skin concerns Physical Exam: - Constitutional: Patient was alert, well-appearing and in no noticeable distress. - Skin: A focalized skin exam of the Left anterior shoulder was performed. Specific skin findings: 1. Well-healed shave biopsy scar on Left anterior shoulder. Outside Pathology Report reads as follows (see scan docs in e-DH for further details) Date: 07/02/2012 Skin, Left anterior shoulder: Moderately dysplastic compound nevus (cytologic and architectural atypia). The surgical margins are involved. We suggest conservative removal. Assessment and Plan: 1. Biopsy-proven moderately dysplastic compound nevus, Left anterior shoulder - Discussed with pt treatment options as well as their risks, benefits and alteratives. - Lesion is amenable for treatment with Excision and Intermediate Repair, so I specifically discussed with her the risks of surgical excision which include but are not limited to bleeding, pain, infection, scarring, and recurrence and need for further procedures. - After discussion of the treatment options including their risk and benefits, patient expressed understanding and voiced her wish to proceed with excision and intermediate repair (see procedure note below). Procedure Note: Procedure: Excision of benign lesion Resident Surgeon: Maritza Mcdowell MD Director Cardiovascular: Sandrita Kumari ?? Diagnosis: Moderately dysplastic compound nevus ?? Site: Left anterior shoulder ?? Original lesion size: 0.8 cm ?? Margins: 0.3 cm ?? Total size (lesion + margin): 1.4 cm ?? Intermediate repair, length: 5 cm ?? Sutures: 4-0 monocryl and 4-0 prolene ?? Patient position: supine ?? Prep: chlorhexidine ?? Lidocaine used: 12 cc Nature and purpose of the procedure, expected benefits, possible alternative methods of treatment/diagnosis, risks and possibility of complications, and need for follow up were explained to patient. Verbal and written informed consent were obtained. Skin prepped and draped in sterile fashion. Time out was performed and agreed on prior to surgery byphysican, nurse and patient. Local area was anesthetized using 1% lidocaine with 1/100,000 epinephrine. The excision was designed with 0.3 cm clinically clear-appearing margins as noted above in order to remove the lesion. The lesion was excised down to the level of fat. Undermining of wound edges was performed to allow for appropriate approximation. An intermediate closure was required in order to close potential space and to reduce the risk of dehiscence. Hemostasis was achieved. A layered closure using was performed. Multiple buried absorbable sutures (4-0 monocryl) were placed to reappose deep fat. The epidermis and dermis were reapposed using monofilament suture (4-0 prolene). There were no complications; the patient tolerated the procedure well. Specimen to Pathology. The wound was dressed. Post-procedure expectations (including discomfort management), wound care and activity restrictions were reviewed at length with patient. Patient will be notified by letter or phone call of pathology results. Follow-up: 1. Suture removal: 7-10 days 2. RTC as scheduled with Primary Mobile Service Rv Technician. Maritza Mcdowell MD Resident in Dermatology [facility] Patient was discussed with the Supervising Physician: Cm Kaminski MD Section of Dermatology [facility] Level of Resident Supervision: Indirect supervision with direct supervision immediately available (the supervising physician is physically within the confines of the site of patient care, and is immediately available to provide Direct Supervision) documented in this encounter Miscellaneous Notes Miscellaneous - Provider, Scanning - 11/03/2012 1:18 PM EDT documented in this encounter Plan of Treatment Upcoming Encounters Date Type Specialty Care Team Description 03/14/2022 Office Visit Dermatology [place] Edgar MD [facility] [address] [place], [place] [address] (Wo rk) documented as of this encounter Procedures Procedure Name Priority Date/Time Associated Diagnosis Comme nts SPECIMEN TO Routine 10/15/2012 10:48 AM Dysplastic nevus Resu lts for this PATHOLOGY (NON-OR) EDT procedure are in the results section. SURGICAL PATHOLOGY Routine 10/15/2012 10:14 AM Kadi bar for this REPORT EDT procedure are i n the results section. documented in this encounter Results Specimen to Pathology (NON-OR) (10/15/2012 10:48 AM EDT) Specimen Anatomical Collection Method Collection Time Receive d Time (Source) Location / / Volume Laterality AP Specimen 10/15/2012 10:48 10/15/2012 AM EDT 10:49 AM EDT Narrative [facility] - 10/15/2012 10:49 AM EDT Specimen requisition ordered. ??Separate Pathology report to follow Cm Kaminski III, MD PATHOLOGY/CYTOLOGY ORDERABLE S Performing Organization Address City/State/[place] [address] [facility] Surgical Pathology Report (10/15/2012 10:14 AM EDT) Component Value Ref Test Analysis Performed At [facility] gist Range Method Time Signature Surgical [facility] Pathology ? [facility] Report ? Provider: ?? SAPNA MCDOWELL, ?? Pt. Name: ?? LINDA R, KAJAL R ?MARITZA BRITO ? Acc #: ?[id number] ? Pt. ? Col Date: ?? 3 ? /Sex: ?1945,(67 years),Female ? Rec Date: ?? 10/15/2012 ? LOC: ?HDM ? SURGICAL PATHOLOGY ? ---Pathologic Diagnosis--- ? Skin, left anterior shoulder, excision: ? 1. Dysplastic compound nevus with severe atypia and l ymphocytic ?inflammation, margins appear negative. (see Comm ent). ? 2. Scar, consistent with prior biopsy site, margins appear negative. ? CR-0 ? 10/16/12 ? [facility] ? 10/23/12 Verified by: ? Felisha Jeronimo MD. ? Dermatopatholo gist ? (Electronic Si gnature) ? The attending pathologist whose signature appears o n this report has ? reviewed all diagnostic slides and has edited the suzanne ss and/or ? microscopic portion of the report in rendering the fi nal pathologic ? diagnosis. ? ---Comment--- ? One slide of a prior biopsy from the left anterior shoulder from 07/02/2102, ? ([facility] ??#[id number]) was received for ? comparison. ? The lesion in this re -excision has greater atypia, and it is not clear if ? this is part of the same lesion, or a sep arate adjacent lesion. ??This ? lesion is near the sc ar, but is not seen to directly merge with the scar. ? The cytologic feature s appear different, although this can be affected by ? differences in laboratory methods. ? ---Gross Description--- ? A - Labeled/Fixative: ?? Patient's name, formalin. ? Quantity/Size: ?Single, 2.8 x 1.0 x 0.4 cm. ? Tissue Description: ? Wrinkled, molina-white skin w ith a central, ? 0.4 x 0.4-cm, pearlescent callahan-white nodule. ? Sections/Processing: ?The spe cimen is inked and serially sectioned. ? The ends are submitted in (1); the remainder ? in (2-5). (T5) ?? ejr ? ---Clinical Information--- ? Specimen Submitted: ? A - Skin, left anterior shoulder, excision (1) ? Clinical History: ? [facility] ? Provider: ?? SAPNA MCDOWELL, ?? Pt. Name: ?? LINDA R, KAJAL R ?MARITZA BRITO ? Acc #: ?[id number] ? Pt. ? Col Date: ?? 3 ? /Sex: ?1945,(67 years),Female ? Rec Date: ?? 10/15/2012 ? LOC: ?HDM ? 0.8 cm pink atrophic papule ? SURGICAL PATHOLOGY ? Clinical Diagnosis: ? Moderately dysplastic compound nevus (previously biop sied at [facility]) Specimen (Source) Anatomical Collection Method Collection Time Re ceived Time Location / / Volume Laterality 10/15/2012 10:14 AM EDT Maritza Mcdowell MD PATHOLOGY/CYTOLOGY ORDERA [facility] Performing Organization Address City/State/ZIP [place] [address] [facility] documented in this encounter Visit Diagnoses Diagnosis Dysplastic nevus - Primary Benign neoplasm of skin, site unspecifie d documented in this encounter Care Teams Repairer Welding Equipment Relationship Specialty Start Date End Date Mira Marino MD PCP - General 04/18/10 10/27/13 [facility] [address] [place] [address] [place] [address] documented as of this encounter
--- OUTSIDE RECORDS SUMMARY | 2021-11-23 01:54 | XMS_ITS | Encounter Summary ---
:1945 Author Organization [facility] [place] [address] Care Team Providers Name Role Phone Leeanne Schultz MD Primary Care Provider Encounter Details Date Type Department Care Team Description 07/30/2014 Ancillary Appointment Dermatology at [facility] [address] MD [address] [place] [address] [facility] [place], [place] [address] Social History Tobacco Use Types Packs/Day Years [...] 03/14/2022 Office Visit Dermatology [place] Edgar MD [facility] [address]IA[address] MED[address]DERMAT [place], [place] [address] (Wo rk) documented as of this encounter Visit Diagnoses Not on filedocumented in this encounter Care Teams Community Service Aide Relationship Specialty Start Date End Date Leeanne Schultz MD PCP - General 10/28/13 [address] [place] [address] documented as of this encounter
--- OUTSIDE RECORDS SUMMARY | 2021-11-23 01:54 | XMS_ITS | Encounter Summary ---
:1945 Author Organization [facility] [place] [address] Care Team Providers Name Role Phone Leeanne Schultz MD Primary Care Provider Reason for Referral Physical Therapy (Routine) - Closed Specialty Diagnoses / Procedures Referred By Contact Refer red To Contact Physical Therapy Diagnoses Plantar fasciitis of left foot Alli Mao PA [address] [place] [address] Referral ID Status Reason Start Date Expiration Date Visits V isits Requested Authorized [id number] Closed Evaluate and 11/03/2013 05/02/2014 8 8 Treat Reason for Visit Reason Comments Left Foot Pain Encounter Details Date Type Department Care Team Description 11/03/2013 Office Visit Orthopaedics at [facility] Donnell Leiva MD Plantar fasciitis of left foot (Primary Dx); [facility] f ibromatosis [facility] [place] [address] ORTHOPAEDIC [phone] SUR[place], [place] [address] Social History Tobacco Use Types Packs/Day Years Used Date Former Smoker Smokeless Tobacco: Never Used Alcohol Use Standard Drinks/Week Comments Yes 7 (1 standard drink = 0.6 oz pure alcoho l) Sex Assigned at Date Recorded Female 10/02/2020 6:58 PM EDT documented as of this encounter Last Filed Vital Signs Vital Sign Reading Time Taken Comments Blood Pressure 146/75 11/03/2013 1:39 PM EDT Pulse 88 11/03/2013 1:39 PM EDT Temperature - - Respiratory Rate - - Oxygen Saturation - - Inhaled Oxygen Concentration - - Weight 74.7 kg (164 lb 11.2 oz) 11/03/2013 1:39 PM EDT Height 172.7 cm (5' 8) 11/03/2013 1:39 PM EDT Body Mass Index 25.04 11/03/2013 1:39 PM EDT documented in this encounter Progress Notes Alli Mao, FALGUNI - 11/03/2013 1:48 PM EDT PATIENT NAME: Leeanne Bush AGE: 68 y.o. MR#: [id number] DATE OF VISIT: 11/03/2013 DATE OF INJURY/ONSET: one year STAFF: The patient was seen and the plan was formulated in conjunction with Dr. Leiva. CHIEF COMPLAINT: plantar fasciitis HISTORY OF PRESENT ILLNESS Ms. Bush a 68 y.o. year old female comes into clinic today for left foot pain plantar fasciitis. She reports that pain started a year ago. It started out with a normal plantar fasciitis and now the pain has present over the top of the feet. She reports that she got a new pair of custom orthotics, which she could not wear due to pain. She was in [place] and has seen threepodiatrist, and has 6-7 cortisone injections in her plantar fasciitis over the past 6 months. She has worn a night splint. She has placed in a cast in equinas for four weeks, removed for four weeks. Her pain was worsened after the cast was removed. Outside reports reviewed: radiology reports. Past Medical History Diagnosis Date ??? Melanoma ??? Basal cell carcinoma Patient Active Problem List Diagnosis Date Noted ??? Personal history of malignant melanoma of skin 09/13/2010 ??? Basal cell carcinoma Past Surgical History Procedure Date ??? Created by interface LES(LUMBAR EPIDURAL STERIOD INJECTION-CAUDAL SACRAL Procedure Date: 05/08/2005 ??? Created by interface LES(LUMBAR EPIDURAL STERIOD INJECTION-CAUDAL SACRAL Procedure Date: 04/19/2005 ??? Created by interface URETHRAL SUSPENSION,SLING\FASCIA OR SYNTHETIC / FASCIA Procedure Date: 03/15/2006 No family history on file. History Social History ??? Marital Status: Spouse Name: N/A Number of Children: N/A ??? Years of Education: N/A Social History Main Topics ??? Smoking status: Former Smoker ??? Smokeless tobacco: Never Used ??? Alcohol Use: 4.2 - 8.4 oz/week 7-14 Glasses of wine per week ??? Drug Use: No ??? Sexually Active: None Other Topics Concern ??? None Social History Narrative ??? None Current Outpatient Prescriptions Medication Sig Dispense Refill ??? CELEBREX 200 mg capsule Take 200 mg by mouth as needed. ??? clonazePAM (KLONOPIN) 1 mg tablet ??? loratadine (CLARITIN) 10 mg tablet Take 10 mg by mouth as needed. ??? amlodipine (NORVASC) 10 mg tablet Take [...] Take 5 mg by mouth nightly. ??? [DISCONTINUED] amoxicillin-clavulanate (AUGMENTIN) 875-125 mg per tablet ??? tretinoin (RETIN-A) 0.025 % cream Apply topically to affected areas on the face at night. 45 g PRN ??? [DISCONTINUED] diclofenac-misoprostol (ARTHROTEC 75) 75-200 mg-mcg per tablet 1 Tablet(s), PO, Twice daily,PRN Current Outpatient Prescriptions on File Prior to Visit Medication Sig Dispense Refill ??? amlodipine (NORVASC) [...] Take 5 mg by mouth nightly. ??? tretinoin (RETIN-A) 0.025 % cream Apply topically to affected areas on the face at night. 45 g PRN ??? [DISCONTINUED] diclofenac-misoprostol (ARTHROTEC 75) 75-200 mg-mcg per tablet 1 Tablet(s), PO, Twice daily,PRN Allergies Allergen Reactions ??? Shellfish Derived Hives and Other (See Comments) Tongue swelling too ??? Morphine Sulfate Unknown- during surgery states not life threatening. Heart felt like it was going to burst states. ??? Nitrofurantoin Monohyd/M-Cryst Nausea And Vomiting ROS: negative for fever, chills, chest pain, shortness of breath, nausea or vomiting. PHYSICAL EXAM: Blood pressure 146/75, pulse 88, height 172.7 cm (5' 8), weight 74.707 kg (164 lb 11.2 oz). General: alert and oriented. She appears in no acute discomfort and is resting comfortably in a chair in the exam room. Foot & Ankle Exam Standing alignment reveals well-maintained longitudinal arches bilaterally. There is mild swelling over the dorsum of the foot She is tender over the plantar fascia at he medial tubercle of the calcaneous. There is a thickening of the plantar fascia at the arch. Nontender to Achilles, Peroneal and Posterior tibial tendons. ROM: Full and equal subtalar ROM. There is no gross ankle instability with a negative anterior drawer andtalar tilt testing. Ankle: Dorsiflexion: -10?? with the knee extended and to neutral with the knee flexed. Plantar Flexion: 40 deg Neurovascular Evaluation DP and TP pulses are 2+ The patient sensation is intact in the sural, deep peroneal, superficial peroneal nerve distributions. RADIOLOGICAL STUDIES: I reviewed 3 View images of the left foot taken today, which showed mild DJD of the 1st MTP joint ASSESSMENT/PLAN: The patient was seen and the plan was formulated in conjunction with Dr. Leiva. Leeanne Bush is a 68 y.o. female presents to the clinic with left foot pain secondary to plantar fasciitis and plantar fibromatosis. We reviewed her MRI, x- rays and exam findings with the patient. The patient was given a referral to physical therapy to help with stretching of her gastrocnemius soleus complex and plantar fascia. She was also given an order for full length custom molded accomodativeinsoles with cork base with relief for plantar fibroma on the left. We discussed that if her symptoms were to worsen or persist we could consider placing her in a walking cast for four weeks. This plan was discussed with the patient and they are in agreement. All of the patient's questions were answered. documented in this encounter Plan of Treatment Upcoming Encounters Date Type Specialty Care Team Description 03/14/2022 Office Visit Dermatology [place] Edgar MD [facility] [address] [place], [place] [address] (Wo rk) Scheduled Referrals Name Type Priority Associated Diagnoses Order S chedule Referral to Outpatient Referral Routine Plantar fasciitis of Ordered: Physical Therapy left foot 11/03/2013 documented as of this encounter Visit Diagnoses Diagnosis Plantar fasciitis of left foot - Primary Plantar fascial fibromatosis Plantar fibromatosis Plantar fascial fibromatosis documented in this encounter Care Teams Events Traffic Controller Relationship Specialty Start Date End Date Leeanne Schultz MD PCP - General 10/28/13 [address] [place] [address] documented as of this encounter
--- OUTSIDE RECORDS SUMMARY | 2021-11-23 01:54 | XMS_ITS | Encounter Summary ---
:1945 Author Organization [facility] [place] [address] Care Team Providers Name Role Phone Leeanne Schultz MD Primary Care Provider Reason for Visit Reason Onset Date Comments Other 01/19/2014 Telephone Call Encounter Details Date Type Department Care Team Description 01/19/2014 Telephone [facility] (Telephone Call) Geneva Goldberg MD [address] [place] [address] [facility] [place], [place] [address] (Wo rk) Social History Tobacco Use Types Packs/Day Years Used Date Former Smoker Smokeless Tobacco: Never Used Alcohol Use Standard Drinks/Week Comments Yes 7 (1 standard drink = 0.6 oz pure alcoho l) Sex Assigned at Date Recorded Female 10/02/2020 6:58 PM EDT documented as of this encounter Miscellaneous Notes Telephone Encounter - Michael Cee - 01/19/2014 10:04 AM EDT This headline writer spoke with Leeanne Bush. Patient declined an appointment at this time and will call when she is ready. Telephone Encounter - Michael Cee - 01/19/2014 10:03 AM EDT Message copied by MICHAEL CEE on SatJan 19, 2014 10:03 AM ------ Message from: ELLIE GONZALEZ Created: SatOct 28, 2013 10:08 AM 6 month skin check, History melanoma MC: IPL consult, next available documented in this encounter Plan of Treatment Upcoming Encounters Date Type Specialty Care Team Description 03/14/2022 Office Visit Dermatology [place] Edgar MD [facility] [address] DIANA CANAS-DERMAT [place], [place] [address] (Wo rk) documented as of this encounter Visit Diagnoses Not on filedocumented in this encounter Care Teams Medical Assistant Secretary Relationship Specialty Start Date End Date Leeanne Schultz MD PCP - General 10/28/13 [address] [place] [address] documented as of this encounter
--- OUTSIDE RECORDS SUMMARY | 2021-11-23 01:54 | XMS_ITS | Encounter Summary ---
:1945 [place] [address] Care Team Providers Name Role Phone Leeanne Schultz MD Primary Care Provider Reason for Visit Reason Comments Skin Check Encounter Details Date Type Department Care Team Description 10/28/2013 Follow-Up Dermatology at [facility] MD Scars (Primary Dx); [facility] Lentigines; [address] Personal history of [place] [address] [facility] [phone] RD-DERMATOLOGY [place] [id number] (Wo rk) Social History Tobacco Use Types Packs/Day Years Used Date Former Smoker Sex Assigned at Date Recorded Female 10/02/2020 6:58 PM EDT documented as of this encounter Progress Notes Ni Zamudio MD - 10/28/2013 9:31 AM EDT DERMATOLOGY ESTABLISHED PATIENT CLINIC NOTE Date of service: 10/28/2013 Leeanne Bush : 1945 Provider: Ni Zamudio [...] August 2007, she had MIS treated in [place] ? Right lateral thigh. 6. 10/2006 Right lower back, mild to moderate DN , Excised 7. She grew up in [place] with a history of extensive sun exposure. [...] specimen. 16. 03/04/13- DF. unit or cyst. HPI Leeanne Bush is a 68 y.o. year old female. Presents for full skin cancer examination today, lightbrown spot developing on mid upper cutaneous lip. Would like cosmetic consult for brown spots on face. Biopsy on right ala 04/2013 showed AK, reports squeezing area and sharp hard object was expelled. ADR: Allergies Allergen Reactions ??? Morphine Sulfate [...] other skin complaints EXAM General: NAD, pleasant, cooperative.A total body skin exam except for areas covered by underwear wasperformed. This includes examination of the skin of the face, ears, neck, chest, axillae, left and right upper and lower extremities, hands and feet, abdomen, and breasts and buttocks also examined with patient consent. Skin: Significant skin findings: A. 0.3-0.6cm light-brown evenly pigmented, well-demarcated macules on face including one on mid upper cutaneous lip B. Scars, as stated above, NER ASSESSMENT/PLAN: A. Lentigines - Patient would like cosmetic consult. Refer to Dr. Green B. Scars, NER RTC PRN, otherwise 6 months I am documenting this encounter acting as the scribe for and in the presence of Dr. Zamudio.: ELLIE GONZALEZ LPN I performed the above scribed service and agree with the accuracy of the documentation in this encounter. Ni Zamudio MD Section of Dermatology [facility] documented in this encounter Plan of Treatment Upcoming Encounters Date Type Specialty Care Team Description 03/14/2022 Office Visit Dermatology [place] Edgar MD [facility] DR DIANA MEDINA-DERMAT [place], [place] [address] (Wo rk) documented as of this encounter Visit Diagnoses Diagnosis Scars - Primary Scar condition and fibrosis of skin Lentigines Other dyschromia Personal history of malignant melanoma o f skin documented in this encounter Care Teams Riveting Machine Operator Automatic Relationship Specialty Start Date End Date Leeanne Schultz MD PCP - General 10/28/13 [address] [place] [address] documented as of this encounter
--- OUTSIDE RECORDS SUMMARY | 2021-11-23 01:54 | XMS_ITS | Encounter Summary ---
:1945 [place] [address] Care Team Providers Name Role Phone Kajal Schultz MD Primary Care Provider Reason for Visit Reason Comments Skin Check Encounter Details Date Type Department Care Team Description 06/30/2014 Follow-Up Dermatology at [facility] MD Skin lesion (Primary Dx); [facility] History of melanoma; [address] History of basal cell cancer; [place] [address] [address] [facility] [place] (actinic keratosis); [phone] RD-DERMATOLOGY Seborrheic keratosis [place], [place] [address] (Wo rk) Social History Tobacco Use Types Packs/Day Years Used Date Former Smoker Smokeless Tobacco: Never Used Alcohol Use Standard Drinks/Week Comments Yes 7 (1 standard drink = 0.6 oz pure alcoho l) Sex Assigned at Date Recorded Female 10/02/2020 6:58 PM EDT documented as of this encounter Progress Notes Ni Zamudio MD - 06/30/2014 2:13 PM EST Images from the original note were not included. DERMATOLOGY ESTABLISHED PATIENT CLINIC NOTE Date of service: 06/30/2014 Kajal Bush : 1945 Provider: Ni Zamudio [...] August 2007, she had MIS treated in [place] ? Right lateral thigh. 6. 10/2006 Right lower back, mild to moderate DN , Excised 7. She grew up in [place] with a history of extensive sun exposure. [...] 16. 03/04/13- DF. unit or cyst. HPI Kajal Bush is a 68 y.o. year old female. Presents to clinic today for full skin cancer examination. She was last seen by me on 10/28/2013. Patient states she has several items she would like examined. Left upper arm, new brown spot- approximately 6 month. Non-healing spot on right forearm Red spot located on the left cheek Scaly spot on right upper juana lip She denies tenderness, pain, bleeding or itching to these areas. ADR: Allergies Allergen Reactions ??? Shellfish Derived [...] 10 mg by mouth as needed. ??? tretinoin (RETIN-A) 0.025 % cream Apply [...] patient consent. Skin: Significant skin findings: A. 0.5cm, medium-brown, evenly-pigmented macule located on the left upper arm B. 0.5 cm telangectatic pink papule with a pearly border located on the right forearm Verbal consent was given by patient to obtain and chart the following pictures: C. 0.2-0.3cm scaly irregular pink papule(s) right upper vermilion border x 1, left cheek x 1 D. Well-healed hypopigmented scars at sites above, per skin history- no signs of recurrence ASSESSMENT/PLAN: A. Lentigo rule out LM B. Rule out BCC - I recommended to perform a skin biopsy to confirm/clarify the nature of the skin lesion. After discussion of potential risks which include but are not limited to scarring, bleeding, and infection, patient agreed to proceed (see procedure note below). - Follow-up based on pathology results. Procedure Note: Procedure: Skin biopsy by shave technique Location: A- left upper arm B. Right forearm Discussed indications for procedure and expectations [...] wound care and activity restrictions were reviewed. C actinic keratosis; 5-fluorouracil prescribed 0.5% cream. Apply daily for 3 weeks. Reviewed pamphlet and photographs which detail expectations and typical reaction to treatment. Redness, crusting, swelling and tenderness of treated skin expected to develop during treatment, and is a sign that the medication is working. Warned not to get in eyes. Discussed using medication as tolerated and stopping use for a day or twoif inflammation becomes too intense or patient experiences discomfort. For any severe discomfort or side effects, patient was encouraged to call for further advice and possible evaluation. -[facility], [place] Patient instructed to return to clinic for re-evaluation if lesion does not resolve with this treatment; as expected. D Scars, h/o- MIS, BCC- NER RTC- PRN, otherwise 6 months-routed for scheduling. -Patient instructed to call with questions or concerns I am documenting this encounter acting as the scribe for and in the presence of Dr. Zamudio.: Melani Snyder LPN I performed the above scribed service and agree with the accuracy of the documentation in this encounter. Ni Zamudio MD Section of Dermatology [facility] [place] documented in this encounter Plan of Treatment Upcoming Encounters Date Type Specialty Care Team Description 03/14/2022 Office Visit Dermatology [place] Edgar MD [facility] [address] DIANA MEDINA-DERMAT [place] [address] (Wo rk) documented as of this encounter Procedures Procedure Name Priority Date/Time Associated Diagnosis Comme nts SPECIMEN TO Routine 06/30/2014 3:18 PM Skin lesion Results f or this PATHOLOGY (NON-OR) EST procedure are in the results section. SURGICAL PATHOLOGY Routine 06/30/2014 3:18 PM Res ults for this REPORT EST procedure are i n the results section. documented in this encounter Results Surgical Pathology Report (06/30/2014 3:18 PM EST) Component Value Ref Test Analysis Performed At [facility] Range Method Time Signature Surgical CERNER Pathology ? [facility] Report ? Provider: ?? NI ZAMUDIO ? Pt. Name: ?? HAJA ER, KAJAL Ureña ? Acc #: ?[id number] ? Pt. ? Col Date: ?? 5 ? /Sex: ?1945,(68 years),Female ? Rec Date: ?? 06/30/2014 ? LOC: ?[facility]DM ? SURGICAL PATHOLOGY ? ---Pathologic Diagnosis--- ? A - Skin, left upper arm, shave biopsy: ? Histologic Type: ?Malignant melanoma, predominantly lentigo maligna ? type. ? Ulceration: ? Absent. ? Depth of Invasion: ?0.18 mm ? Ronaldo's Level: ?II ? Regression: ? Not identified. ? Vascular Invasion: ?Not identified. ? Perineural Invasion: ?Not identified. ? Microscopic Satellites: Cannot assess. ? Dermal mitoses per mm2: Not identified. ? Tumor infiltrating ? lymphocytes: ?Not identified. ? Solar Elastosis: ?Present. ? Associated Nevus: ? Not identified. ? Margins: ? Peripheral Margins: ? Positive. ? Deep Margin: ?Negative. ? Pathologic TNM Codes: ?? pT1a ? B - Skin, right forearm, shave biopsy: ? Histologic Type: ?Malignant melanoma, mixed features of superficial ? spreading and lentigo maligna types. ? Ulceration: ? Not identified ? Depth of Invasion: ?0.24 mm ? Ronaldo's Level: ?II ? Regression: ? Not identified. ? Vascular Invasion: ?Not identified. ? Perineural Invasion: ?Not identified. ? Microscopic Satellites: Cannot assess. ? Dermal mitoses per mm2: Not identified. ? Tumor infiltrating ? lymphocytes: ?Not identified. ? Solar Elastosis: ?Present. ? Associated Nevus: ? Not identified. ? Margins: ? Peripheral Margins: ? Positive. ? Deep Margin: ?Positive, (adnexal exte nsion). ? Pathologic TNM Codes: ?? pT1a ? [facility] [place] ? Provider: ?? NI ZAMUDIO ? Pt. Name: ?? HAJA ER, KAJAL Ureña ? Acc #: ?[id number] ? Pt. ? Col Date: ?? 5 ? /Sex: ?1945,(68 years),Female ? Rec Date: ?? 06/30/2014 ? LOC: ?[facility] ? SURGICAL PATHOLOGY ? Dictated by: ??Dong Larsen, DO ? Dermatopathology Fellow ? As the attending phys icibrittaney, I attest that I examined the histologic slides, ? and confirm Dr. Dnog Larsen's diagnosis. ? 07/01/14 ? BJM ? 07/04/14 Verified by: ? Felisha Jeronimo MD ? Dermatopatholo gist ? (Electronic Si [...] Block ?Antibody ?Result (Positive/Negat mejia) ? A1 ?MART-1 ? Positive, highlights melanocytes. ? B1 ?MART-1 ? Positive, highlights melanocytes. ? ---Gross Description--- ? A - Labeled/Fixative: Left arm, formalin. ? Quantity/Size: Single, 0.8 x 0.7 cm shave. ? Tissue Description: T an skin with a centrally located 0.6 x 0.5 cm brown ? macule. ? Sections/Processing: Inked, trisected. (T1) ? B - Labeled/Fixative: Right forearm, formalin. ? Quantity/Size: Single, 0.5 x 0.5 cm shave. ? Tissue Description: Asif skin. ? Sections/Processing: Inked, bisected. (T1) ??cjl ? [facility] [place] ? Provider: ?? NI ZAMUDIO ? Pt. Name: ?? HAJA CLARK, KAJAL Ureña ? Acc #: ?[id number] ? Pt. ? Col Date: ?? 5 ? /Sex: ?1945,(68 years),Female ? Rec Date: ?? 06/30/2014 ? LOC: ?[facility]DM ? SURGICAL PATHOLOGY ? ---Clinical Information--- ? Specimen Submitted: ? A - Left upper arm, shave biopsy, (1) ? B - Right forearm, shave biopsy, ??(1) ? Clinical History: ? A -0.5 cm, medium brown, evenly pigmented macule ? B -0.5 cm telangiecta tic pink papule with a pearly border located on the ? right forearm ? Clinical Diagnosis: ? A -lentigo rule out LM ? B -rule out BCC Specimen (Source) Anatomical Collection Method Collection Time Re ceived Time Location / / Volume Laterality 06/30/2014 3:18 PM EST Ni Zamudio MD PATHOLOGY/CYTOLOGY ORDERABLE S Performing Organization Address City/[facility]/ZIP Code Phon e Number [address] [facility] Specimen to Pathology (NON-OR) (06/30/2014 3:18 PM EST) Specimen Anatomical Collection Method Collection Time Receive d Time (Source) Location / / Volume Laterality AP Specimen 06/30/2014 3:18 PM 201 5 3:18 EST PM EST Narrative CERNER MILLENNIUM - 06/30/2014 3:[address] Specimen requisition ordered. ??Separate Pathology report to follow Ni Zamudio MD PATHOLOGY/CYTOLOGY ORDERABLE S Performing Organization Address City/[facility]/[place] [address] [email or web address] documented in this encounter Visit Diagnoses Diagnosis Skin lesion - Primary Unspecified disorder of skin and subcuta neous tissue History of melanoma Personal history of malignant melanoma o f skin History of basal cell cancer Personal history of other malignant neop lasm of skin [place] (actinic keratosis) Actinic keratosis Seborrheic keratosis Other seborrheic keratosis documented in this encounter Care Teams Milling Operator Relationship Specialty Start Date End Date Kajal Schultz MD PCP - General 10/28/13 [address] [place] [address] documented as of this encounter
--- OUTSIDE RECORDS SUMMARY | 2021-11-23 01:54 | XMS_ITS | Encounter Summary ---
:1945 Author Organization [facility] [place] [place] [address] Care Team Providers Name Role Phone Leeanne Schultz MD Primary Care Provider Reason for Visit Reason Comments Advice Only Encounter Details Date Type Department Care Team Description 07/14/2014 Office Visit Dermatology at [facility], DR BALL Fat deposits [address] [place] [address] Social History Tobacco Use Types Packs/Day Years Used Date Former Smoker Smokeless Tobacco: Never Used Alcohol Use Standard Drinks/Week Comments Yes 7 (1 standard drink = 0.6 oz pure alcoho l) Sex Assigned at Date Recorded Female 10/02/2020 6:58 PM EDT documented as of this encounter Progress Notes Amy Quiroz RN - 07/14/2014 1:18 PM EDT Consult: Amy Quiroz RN Chief Problem: 1. Unwanted fat distrubution 2. Discussion of cryolipolysis HISTORY & DISCUSSION: 68 y.o.. year female, here for discussion and possibly treatment today forreduction of unwanted fat distribution. Established patient to Dr.Denise Zamudio. Seen in clinic today and requested a consult Patient most interested in the cryolipolysis treatment . Body sculpting with the cryolipolysis technique most appropriate for the patient and his/her expectations/goals. Discussed potential adverse events including pain, cramping, strong suction sensation, stinging and (during the procedure and 1-21 days after), , edema and erythema (temporary for 2-3 days) possible bruising (uncommon) . Patient clearly understood these potential risks. Wished to proceed. Multiple treatments may be required for optimum benefit. Total number of treatments depend on the baseline degree of fat deposits, patient's response, expectations and desires. Individual patients respond differently. No guarantees of outcome have been made. Discussed. The patient knows that cryolipolysis , for this purpose, is strictly a cosmetic procedure, and will not be coverd by insurance. Discussed cost today. The patient will have to pay for the treatment, at the time of the procedure/visit. Understood. EXAMINATION: Focal examination of the trunkel area DIAGNOSIS/ASSESSMENT: 1. Unwanted fat distrubution of the lower abdomen PLAN: 1. Patient wished to schedule a procedure, will call after she speaks to her . Will treat with Cool-max to lower abdomen, discussed how she will need multiple treatments. Talked about all treatment areas , lower abdomen cool max x 2, cool max upper abdomen x 1, right and left flank cool curve plus. Pt will start with cool max with lower abdomen. 2. Pt does have a bladder mesh and will ensure this is not a contraindicatiuon 3. Pt to call to schedule documented in this encounter Plan of Treatment Upcoming Encounters Date Type Specialty Care Team Description 03/14/2022 Office Visit Dermatology [place] Edgar MD [facility] DR DIANA CANAS-DERMAT [place], [place] [address] (Wo rk) documented as of this encounter Visit Diagnoses Diagnosis Fat deposits Localized adiposity documented in this encounter Care Teams Temporary Office Assistant Relationship Specialty Start Date End Date Leeanne Schultz MD PCP - General 10/28/13 [address] [place] [address] documented as of this encounter
--- OUTSIDE RECORDS SUMMARY | 2021-11-23 01:54 | XMS_ITS | Encounter Summary ---
:1945 Author Organization [facility] [place] [address] Care Team Providers Name Role Phone Leeanne Schultz MD Primary Care Provider Encounter Details Date Type Department Care Team Description 10/22/2014 Telephone Dermatology at [facility] Ni Zamudio MD [address] [facility] [place] [address] [facility]-DERMATOLOGY [phone] [place] [address] (Wo rk) Social History Tobacco Use Types Packs/Day Years Used Date Former Smoker Smokeless Tobacco: Never Used Alcohol Use Standard Drinks/Week Comments Yes 7 (1 standard drink = 0.6 oz pure alcoho l) Sex Assigned at Date Recorded Female 10/02/2020 6:58 PM EDT documented as of this encounter Miscellaneous Notes Telephone Encounter - Humberto Gill - 10/22/2014 11:00 AM EDT Leeanne called returning Melani's call. She can be called at the home number listed this morning, or the cell number listed after 1:30PM. Humberto Herbert documented in this encounter Plan of Treatment Upcoming Encounters Date Type Specialty Care Team Description 03/14/2022 Office Visit Dermatology Edgar, [place] J , MD [facility] [address] DIANA CANAS-DERMAT [place], [place] [address] (Wo rk) documented as of this encounter Visit Diagnoses Not on filedocumented in this encounter Care Teams Bark Tanner Relationship Specialty Start Date End Date Leeanne Schultz MD PCP - General 10/28/13 [address] [place] [address] documented as of this encounter
--- OUTSIDE RECORDS SUMMARY | 2021-11-23 01:54 | XMS_ITS | Encounter Summary ---
:1945 Author Organization [facility] [place] [address] Care Team Providers Name Role Phone Leeanne Schultz MD Primary Care Provider Encounter Details Date Type Department Care Team Description 06/29/2014 Orders Only Pulmonology at [facility] Marlon Fernandes COPD ([facility] MD [place] obstructive pulmonary [facility] disease) [place] [address] [facility] [address] [place], [place] [address] Social History Tobacco Use Types [...] Dermatology [place] Edgar MD [facility] ER DR DIANA CANAS-DERMAT [place], [place] [address] (Wo rk) documented as of this encounter Results Pulmonary Function Testing (07/02/2014 [...] Chronic airway obstruction, not elsewher e classified COPD (chronic obstructive pulmonary dise ase) Chronic airway obstruction, not elsewher e classified documented in this encounter Care Teams Services Program Manager Relationship Specialty Start Date End Date Leeanne Schultz MD PCP - General 10/28/13 [address] [place] [address] documented as of this encounter
--- OUTSIDE RECORDS SUMMARY | 2021-11-23 01:54 | XMS_ITS | Encounter Summary ---
:1945 Author Organization [facility] [place] [address] Care Team Providers Name Role Phone Leeanne Schultz MD Primary Care Provider Reason for Visit Reason Onset Date Comments Pre Procedure Call 11/11/2014 Encounter Details Date Type Department Care Team Description 11/11/2014 Telephone Dermatology at [facility] Mica Patton LPN Pre Procedure Call [address] [place] [address] Social History Tobacco Use Types Packs/Day Years Used Date Former Smoker Smokeless Tobacco: Never Used Alcohol Use Standard Drinks/Week Comments Yes 7 (1 standard drink = 0.6 oz pure alcoho l) Sex Assigned at Date Recorded Female 10/02/2020 6:58 PM EDT documented as of this encounter Miscellaneous Notes Telephone Encounter - Mica Patton LPN - 11/11/2014 3:11 PM EDT Pre-Op excision phone call Date of Call: 11/11/14 Surgical procedure to be done: excision melanoma, left lateral arm on 11/19/14 with Ni Zamudio MD Spoke with Leeanne Bush by phone to review the following. Review of medications: instructed to take all medications as directed before procedure. Does not take any blood thinners. Does not have any allergies to Lidocaine or epinephrine. Does not take antibiotics before dental procedures. Does not have any cardiac issues, murmurs or valve replacements. Does not have a pacemaker or defibrillator. Has not had a total joint replacement with in the past 2 years. Recommend that she be accompanied by someone who can drive her home if needed. Discussed length of procedure and time variables. Post operative instructions reviewed including physical limitations after procedure. Phone number given should any questions or concerns arise before or after the procedure. Leeanne Bush states that she understands all of the above. Mica Patton LPN documented in this encounter Plan of Treatment Upcoming Encounters Date Type Specialty Care Team Description 03/14/2022 Office Visit Dermatology [place] Edgar MD [facility] ER [address] DIANA CANAS-DERMAT [place], [place] [address] (Wo rk) documented as of this encounter Visit Diagnoses Not on filedocumented in this encounter Care Teams Hydraulics Teacher Relationship Specialty Start Date End Date Leeanne Schultz MD PCP - General 10/28/13 [address] [place] [address] documented as of this encounter
--- OUTSIDE RECORDS SUMMARY | 2021-11-23 01:59 | XMS_ITS | Encounter Summary ---
:1945 Author Organization [facility] Address [address] [place] [address] Care Team Providers Name Role Phone Marifre Marino OSORIO Primary Care Provider Encounter Details Date Type Department Care Team Description 11/30/2008 Hospital Encounter [facility] Hai Hobson MD Perioperative Services - [address] [address] Social History Tobacco Use Types Packs/Day Years Used Date Never Assessed Sex Assigned at Date Recorded Not on file documented as of this encounter Discharge Disposition Disposition Code Departure Means Destination Home or Self Care documented in this encounter H&P Notes InpatientPhysician MD - 12/06/2008 1330 EDT documented in this encounter OR Notes OR Surgeon - Marlon Hobson MD - 11/30/2008 0000 EDT PROCEDURE REPORT PT TYPE: OPPROC SERVICE DATE: 11/30/2008 SURGEON: Marlon Hobson MD SUSTAINABILITY ENGINEER: PREOPERATIVE DIAGNOSIS Right index mucocyst. POSTOPERATIVE DIAGNOSIS Right index mucocyst. PROCEDURE Excision right index mucocyst. ANESTHESIA Local. FINDINGS Small mucocyst emanating from the radial side of the DIP joint in the integral between the long extensor and the radial collateral. NARRATIVE The patient had local infiltration of anesthesia. The arm was prepped and draped in the usual sterile fashion. An oblique incision was made over the mass down to the joint. Dissection back to the interval from which the cyst and its stalk was excised. A rongeur was used to remove a small spur. The area was then cauterized, irrigated and closed with 5-0 nylon. A soft dressing was applied. The patient was discharged home to be followed as an outpatient. Unless otherwise noted, there were no complications, no blood loss, cultures obtained, specimens removed, or drains retained. ESTIMATED BLOOD LOSS FLUIDS SPECIMENS COMPLICATIONS Marlon Hobson MD - Marlon Hobson MD A - [facility] Job ID: [id number] Document ID: [id number] cc: Mira Marino MD documented in this encounter Miscellaneous Notes Scanned Note-Null - InpatientPhysician MD - 12/06/2008 1330 EDT canned Note-Null - Inpatient, MD Love - 12/06/2008 1330 EDT documented in this encounter Plan of Treatment Not on filedocumented as of this encounter Visit Diagnoses Not on filedocumented in this encounter Care Teams Roller Structural Mill Relationship Specialty Start Date End Date Marifer Marino NP PCP - General 11/29/[address] [place] [id number] documented as of this encounter
--- OUTSIDE RECORDS SUMMARY | 2021-11-23 01:59 | XMS_ITS | Encounter Summary ---
:1945 Author Organization [facility] Address [address] [place] [address] Care Team Providers Name Role Phone Marifer Marino NP Primary Care Provider Encounter Details Date Type Department Care Team Description 11/14/2021 Lab Requisition [facility] Outr Resulting Lab, Pathology & Laboratory Provider [facility] [address] [place] [address] Social History Tobacco Use Types Packs/Day Years Used Date Never Assessed Sex Assigned at Date Recorded Not on file documented as of this encounter Plan of Treatment Not on filedocumented as of this encounter Procedures Procedure Name Priority Date/Time Associated Diagnosis Comme nts IGE Routine 11/14/2021 11:00 EDT Results for this procedure are i n the results section . documented in this encounter Results IGE (11/14/2021 11:00 EDT) Pathologist Sig nature IgE 15 <158 IU/mL [facility] Specimen Blood - Venous blood (substance) Performing Organization Address City/State/ZIP Code Phon e Number [facility] [address] [place] [address] SERVICES documented in this encounter Visit Diagnoses Not on filedocumented in this encounter Care Teams Earth Sciences Professor Relationship Specialty Start Date End Date Marifer Marino NP PCP - General 11/29/08 [address] [place], [place] [id number] documented as of this encounter
--- OUTSIDE RECORDS SUMMARY | 2021-11-23 01:59 | XMS_ITS | Encounter Summary ---
:1945 Author Organization [facility] Address [address] [place] [address] Care Team Providers Name Role Phone Marifer Marino NP Primary Care Provider Shmuel Soni MD Primary Care Provider Unavailable Encounter Details Date Type Department Care Team Description 12/30/2003 Results Only [facility] - Mónica Crystal JACQUARD LACE WEAVER conversion [address] [place] [address] Social History Tobacco Use Types Packs/Day Years Used Date Never Assessed Sex Assigned at Date Recorded Not on file documented as of this encounter Plan of Treatment Not on filedocumented as of this encounter Procedures Procedure Name Priority Date/Time Associated Diagnosis Comme nts CYTOPATHOLOGY Routine 12/30/2003 0:00 EDT Results for this procedure are i n the results section . documented in this encounter Results CYTOPATHOLOGY (12/30/2003 0:00 EDT) Pathology Report: CYTOPATHOLOGY REPORT [facility] Reports generated via electronic interface contain karl ginal data; however they are lacking the format of the original re port. Caution should be taken when reading/interpreting unfo rmatted reports. Name: ? LEEANNE BUSH ? Accession #: ? [id number] : ? 1945 (Age: 58) ??F ?Collect Date: ? 12/05 Location: ? [facility] ? Receive Date : ? 12/31/2003 Provider: ?MÓNICA MURRAY JACQUARD LACE WEAVER Copy to: ? Specimen/Source: ?ThinPrep Pap Test, Vagina Last Menstrual Period: ? 1995 Hormonal/Contraceptive Status: ? Hormone Replacement Therapy Other: ? Additional clinical information: Phx Melanoma ? SPECIMEN ADEQUACY ? Satisfactory for Evaluation - assessment of transformation zone component not appl icable ( e.g. atrophy, vaginal sample, hysterectomy) GENERAL CATEGORIZATION ? Negative for Intraepithelial Lesion or Malignan cy ? Document reviewed and electronically signed by: ? PRIMO Echevarria(ASCP) ? Report Date: ??01/04/2004 14:16 End of Report Specimen Performing Organization Address City/State/ZIP Code Phon e Number [facility] [address] [place] [address] SERVICES [facility] [address] [place] [address] documented in this encounter Visit Diagnoses Not on filedocumented in this encounter Care Teams Human Resources Vice President Relationship Specialty Start Date End Date Marifer Marino NP PCP - General 11/29/08 [address] [place] [id number] Shmuel Soni MD PCP - General 11/01/08 11/28/08 documented as of this encounter
--- OUTSIDE RECORDS SUMMARY | 2021-11-23 01:59 | XMS_ITS | Encounter Summary ---
:1945 Author Organization [facility] Address [address] [place] [address] Care Team Providers Name Role Phone Marifer Marino NP Primary Care Provider Shmuel Soni MD Primary Care Provider Unavailable Encounter Details Date Type Department Care Team Description 01/23/2006 Results Only [facility] - Mónica Crystal MANAGER ED conversion [address] [place] [address] Social History Tobacco Use Types Packs/Day Years Used Date Never Assessed Sex Assigned at Date Recorded Not on file documented as of this encounter Plan of Treatment Not on filedocumented as of this encounter Procedures Procedure Name Priority Date/Time Associated Diagnosis Comme nts CYTOPATHOLOGY Routine 01/23/2006 0:00 EDT Results for this procedure are i n the results section . documented in this encounter Results CYTOPATHOLOGY (01/23/2006 0:00 EDT) Pathology Report: CYTOPATHOLOGY REPORT [facility] Reports generated via electronic interface contain karl ginal data; however they are lacking the format of the original re port. Caution should be taken when reading/interpreting unfo rmatted reports. Name: ? LEEANNE BUSH ? Accession #: ? [id number] : ? 1945 (Age: 60) ??F ?Collect Date: ? 01/05 Location: ? [facility] ? Receive Date : ? 01/25/2006 Provider: ?MÓNICA MURRAY MANAGER ED Copy to: ? Specimen/Source: ? ThinPrep Pap Test, Vagina, processed on [employer] ThinPrep Imaging System, with manual evaluation Last Menstrual Period: ? Hormonal/Contraceptive Status: ? Yes: Climara patch Treatment History: ? Hysterectomy: vag 1996 Other: ? Additional clinical information: Hx melanoma HPVA - HPV testing requested if ASC-US on the current ThinPrep Pap test. ? SPECIMEN ADEQUACY ? Satisfactory for Evaluation - assessment of transformation zone component not appl icable ( e.g. atrophy, vaginal sample, hysterectomy) GENERAL CATEGORIZATION ? Negative for Intraepithelial Lesion or Malignan cy ? Document reviewed and electronically signed by: ? Elisa Johns, MARCELA(ASCP) ? Report Date: ??01/30/2006 09:14 End of Report Specimen Performing Organization Address City/State/ZIP Code Phon e Number [facility] [address] [place] [address] SERVICES [facility] [address] [place] [address] documented in this encounter Visit Diagnoses Not on filedocumented in this encounter Care Teams Beauty School Instructor Relationship Specialty Start Date End Date Marifer Marino NP PCP - General 11/29/08 [address] [place] [address] Shmuel Soni MD PCP - General 11/01/08 11/28/08 documented as of this encounter
--- OUTSIDE RECORDS SUMMARY | 2021-11-23 01:59 | XMS_ITS | Encounter Summary ---
:1945 Author Organization [facility] Address [address] [place] [address] Care Team Providers Name Role Phone Ned Marifer AC Primary Care Provider Shmuel Soni MD Primary Care Provider Unavailable Encounter Details Date Type Department Care Team Description 01/15/2005 Results Only [facility] - Nelsy Boogie od, Samantha Hollins, ARMATURE REWINDER conversion [address] [place] [phone] (Wo rk) Social History Tobacco Use Types Packs/Day Years Used Date Never Assessed Sex Assigned at Date Recorded Not on file documented as of this encounter Plan of Treatment Not on filedocumented as of this encounter Procedures Procedure Name Priority Date/Time Associated Diagnosis Comme nts CYTOPATHOLOGY Routine 01/15/2005 0:00 EDT Results for this procedure are i n the results section . documented in this encounter Results CYTOPATHOLOGY (01/15/2005 0:00 EDT) Pathology Report: CYTOPATHOLOGY REPORT [facility] Reports generated via electronic interface contain karl ginal data; however they are lacking the format of the original re port. Caution should be taken when reading/interpreting unfo rmatted reports. Name: ? LEEANNE BUSH ? Accession #: ? [id number] : ? 1945 (Age: 59) ??F ?Collect Date: ? 01/04 Location: ? [facility] ? Receive Date : ? 01/17/2005 Provider: ?SAMANTHA BOND ARMATURE REWINDER Copy to: ? Specimen/Source: ? ThinPrep Pap Test, Vagina, processed on [employer] ThinPrep Imaging System, with manual evaluation Last Menstrual Period: ? Treatment History: ? Hysterectomy: Vaginal 1996 Other: ? Additional clinical information: Hx [...] ? Elisa Johns, MARCELA(ASCP) ? Report Date: ??01/22/2005 09:28 End of Report Specimen Performing Organization Address City/State/ZIP Code Phon e Number [facility] [address] [place] [address] SERVICES [facility] [address] [place] [address] documented in this encounter Visit Diagnoses Not on filedocumented in this encounter Care Teams Lunchroom Food Service Supervisor Relationship Specialty Start Date End Date Marifer Marino NP PCP - General 11/29/08 [address] [place] [phone] Shmuel Soni MD PCP - General 11/01/08 11/28/08 documented as of this encounter
--- OUTSIDE RECORDS SUMMARY | 2021-11-23 01:59 | XMS_ITS | Encounter Summary ---
:[address] [facility] Address [address] [place] [address] Care Team Providers Name Role Phone Unavailable Primary Care Provider Unavailable Encounter Details Date Type Department Care Team Description 11/21/2005 Hospital Encounter [facility] [address] [place] [address] Social History Tobacco Use Types Packs/Day Years Used Date Never Assessed Sex Assigned at Date Recorded Not on file documented as of this encounter Discharge Disposition Disposition Code Departure Means Destination Auto Discharge documented in this encounter Plan of Treatment Not on filedocumented as of this encounter Visit Diagnoses Not on filedocumented in this encounter
--- OUTSIDE RECORDS SUMMARY | 2021-11-23 01:59 | XMS_ITS | Encounter Summary ---
:1945 Author Organization [facility] Address [address] [place] [address] Care Team Providers Name Role Phone Marifer Marino NP Primary Care Provider Shmuel Soni MD Primary Care Provider Unavailable Encounter Details Date Type Department Care Team Description 02/28/2005 Hospital Encounter [facility] - Tamera Natarajan wy, [facility] [address] [place] [address] Social History Tobacco Use Types Packs/Day Years Used Date Never Assessed Sex Assigned at Date Recorded Not on file documented as of this encounter Plan of Treatment Not on filedocumented as of this encounter Visit Diagnoses Not on filedocumented in this encounter Care Teams Marketing Graphics Specialist Relationship Specialty Start Date End Date Marifer Marino NP PCP - General 11/29/08 [address] [place], [place] [id number] Shmuel Soni MD PCP - General 11/01/08 11/28/08 documented as of this encounter
--- OUTSIDE RECORDS SUMMARY | 2021-11-23 01:59 | XMS_ITS | Encounter Summary ---
:1945 Author Organization [facility] Address [address] [place] [address] Care Team Providers Name Role Phone Ned Marifer AC Primary Care Provider Shmuel Soni MD Primary Care Provider Unavailable Encounter Details Date Type Department Care Team Description 02/27/2006 Results Only [facility] - Albert Elizondo MD conversion [address] [facility] [address] [place] [address] [place], [place] [phone] (Wo rk) Social History Tobacco Use Types Packs/Day Years Used Date Never Assessed Sex Assigned at Date Recorded Not on file documented as of this encounter Plan of Treatment Not on filedocumented as of this encounter Procedures Procedure Name Priority Date/Time Associated Diagnosis Comme nts SURGICAL PATHOLOGY Routine 02/27/2006 0:00 EDT Re sults for this procedure are i n the results section. documented in this encounter Results SURGICAL PATHOLOGY (02/27/2006 0:00 EDT) Pathology Report: SURGICAL PATHOLOGY REPORT [facility] Reports generated via electronic interface contain karl ginal data; LAB however they are lacking the format of the original re port. Caution should be taken when reading/interpreting unfo rmatted reports. Name: ? LEEANNE BUSH ? Accession #: ? [id number] ? : ? 1945 (Age: 60) ??F ? Collect Date: ? 02/27/2006 ? Location: ? [facility] ? Receive Date: ? 006 ? Provider: ALBERT FARRELL MD Copy to: ? Final Pathologic Diagnosis: ? Skin of back, right lower, punch biopsy: 1. ?Melanocytic nevus, compound typ e, with unusual architectural features and mild cytologic atypia. ? - Nevus extends to peripheral edges of punch bi opsy specimen. Microscopic Description: ? The epidermis is hype rplastic with elongate and anastomosing rete ridges. There is a proliferation of melanocytes with epi dermal and dermal components. The intraepidermal melanocyt es are arranged in nests and as individual cells in a lentiginous pattern. ??The nests predominate and baylee y in size, shape, and spacing. ??Some of the nests bridge between rete ridges. ??Although the individual melanocytes are unevenly spaced in some areas, they sh ow no tendency toward confluent growth or upward m igration. ??The melanocytes are enlarged and show a mild degree of nuclear size and shape variation. ??The dermal component consists of nests and cords of similar melanocytes that show or catherine maturation with descent. ??There is papillary dermal fibroplasia. ??(Kwasi Branch)/[facility] Document reviewed and electronically signed by: Philly Branch MD Report ??Date: 03/04/2006 17:03 By the signature above, the attending physician certif ies that he/she has personally conducted a gross and/or microscopic examin ation of the described specimens and rendered or confirmed the above diagnosi s. Specimen(s) Received: ? Right lower back punch biopsy, 5 mm Clinical History: ? Pt with hx MM L cheek . ??Nevus on R lower back enlarging. ??Pt has surgical apt set up with Dr. Farrell. ??R/O MM. ??Clinical diagn osis code: 238.2 Gross Description: ? Received in formalin labelled Rachelle and R lower back is a punch biopsy of skin which measure s 0.5 cm in diameter and 0.8 cm in thickness. ??The cutaneous surface is callahan to dark brown and mottled. ?? Bisected and submitted entirely in one cassette. ??(Dr. Luis-)/lgk End of Report Specimen Performing Organization Address City/State/ZIP Code Phon e Number [facility] [address] [place] [address] SERVICES [facility] [address] [place] [address] documented in this encounter Visit Diagnoses Not on filedocumented in this encounter Care Teams Refrigeration Houseman Relationship Specialty Start Date End Date Marifer Marino NP PCP - General 11/29/08 [address] [place], [place] [address] Shmuel Soni MD PCP - General 11/01/08 11/28/08 documented as of this encounter
--- OUTSIDE RECORDS SUMMARY | 2021-11-23 01:59 | XMS_ITS | Encounter Summary ---
:1945 Author Organization [facility] Address [address] [place] [address] Care Team Providers Name Role Phone NedLidiaMarifer NP Primary Care Provider Shmuel Soni MD Primary Care Provider Unavailable Encounter Details Date Type Department Care Team Description 02/27/2006 Before PRISM Converted [facility] - Tisha Natarajan, Visit (Maple) Maple conversion [facility] [address] [place] [address] Social History Tobacco Use Types Packs/Day Years Used Date Never Assessed Sex Assigned at Date Recorded Not on file documented as of this encounter Progress Notes Camilo, Conv Churn Drill Operator - 04/30/2009 0141 EST OF SURGICAL ONCOLOGY - BREAST [facility] PROGRESS/FOLLOWUP NOTE - 02/27/2006 P: Status post August 1999 wide excision of a [place] LevelIII / B[place]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 [place] node biopsy negative for metastatic disease. S: The patient returns for routine posttreatment surveillance. The patient has been doing well overall, feeling well systemically with good energy and good appetite. The patient has noted no changes inthe surgical site. Update form has been reviewed. O: There are no palpable cervical, clavicular, axillary or inguinal nodes. The abdomen is flat, soft and nontender. There is no organomegaly. The surgical incision site is well-healed with no evidence of underlying nodularity, satellitosis orintransit metastasis. A: No clinical evidence for recurrence. P: The patient will meet with Caroline Farrell MD, today in dermatology. She does note that with Dr. Farrell leaving, she will have her dermatology and melanoma follow-up done at [facility]. This is where she will be going in the near future for bladder surgery as well. It is closer to her home. She is reminded that she may certainly call here with any questions, any problems. Signed by PARADISE Khan 03/04/2006 11:18 Nikos Rocha CFNP PARADISE Khan - PARADISE Khan A - [place] Job ID: [id number] Document ID: [id number] cc: Shmuel Soni MD [facility] [employer] [facility] Job ID: [id number] Document ID: [id number] cc: Shmuel Soni MD [employer] [facility] documented in this encounter Plan of Treatment Not on filedocumented as of this encounter Visit Diagnoses Not on filedocumented in this encounter Care Teams Veneer Stapler Relationship Specialty Start Date End Date Marifer Marino NP PCP - General 11/29/[address] [place] [address] Shmuel Soni MD PCP - General 11/01/08 11/28/08 documented as of this encounter
--- OUTSIDE RECORDS SUMMARY | 2021-11-23 01:59 | XMS_ITS | Encounter Summary ---
:[address] [facility] Address [address] [place] [address] Care Team Providers Name Role Phone Marifer Marino NP Primary Care Provider Shmuel Soni MD Primary Care Provider Unavailable Encounter Details Date Type Department Care Team Description 01/27/2007 Results Only [facility] - Mónica Crystal BACTERIOLOGIST SOIL conversion [address] [place] [address] Social History Tobacco Use Types Packs/Day Years Used Date Never Assessed Sex Assigned at Date Recorded Not on file documented as of this encounter Plan of Treatment Not on filedocumented as of this encounter Procedures Procedure Name Priority Date/Time Associated Diagnosis Comme nts CYTOPATHOLOGY Routine 01/27/2007 0:00 EDT Results for this procedure are i n the results section . documented in this encounter Results CYTOPATHOLOGY (01/27/2007 0:00 EDT) Pathology Report: CYTOPATHOLOGY REPORT [facility] Reports generated via electronic interface contain karl ginal data; however they are lacking the format of the original re port. Caution should be taken when reading/interpreting unfo rmatted reports. Name: ? LEEANNE BUSH ? Accession #: ? [id number] : ? 1945 (Age: 61) ??F ?Collect Date: ? 01/05 Location: ? [facility] ? Receive Date : ? 01/27/2007 Provider: ?MÓNICA MURRAY BACTERIOLOGIST SOIL Copy to: ? Specimen/Source: ? ThinPrep Pap Test, Vagina, processed on [employer] ThinPrep Imaging System, with manual evaluation Last Menstrual Period: ? Treatment History: ? Hysterectomy: vag. 1995 Other: ? Additional clinical information: Hx melanoma [...] by: ? PRIMO Echevarria(ASCP) ? Report Date: ??01/31/2007 17:48 End of Report Specimen Performing Organization Address City/State/ZIP Code Phon e Number [facility] [address] [place] [address] SERVICES [facility] [address] [place] [address] documented in this encounter Visit Diagnoses Not on filedocumented in this encounter Care Teams Master Ocean Relationship Specialty Start Date End Date Marifer Marino NP PCP - General 11/29/08 [address] [place] [address] Shmuel Soni MD PCP - General 11/01/08 11/28/08 documented as of this encounter
--- OUTSIDE RECORDS SUMMARY | 2021-11-23 01:59 | XMS_ITS | Encounter Summary ---
:1945 Author Organization [facility] Address [address] [place] [address] Care Team Providers Name Role Phone Ned Marifer AC Primary Care Provider Shmuel Soni MD Primary Care Provider Unavailable Encounter Details Date Type Department Care Team Description 11/21/2005 Before PRISM Converted [facility] - Tisha Natarajan, Visit (Maple) Maple conversion CFNP [address] [place] [address] Social History Tobacco Use Types Packs/Day Years Used Date Never Assessed Sex Assigned at Date Recorded Not on file documented as of this encounter Progress Notes Camilo, Conv Aircraft Painter Apprentice - 05/09/2009 2224 EST OF SURGICAL ONCOLOGY - [facility] PROGRESS/FOLLOWUP NOTE - 11/21/2005 P: Status post wide excision of a [place] Level III / Bres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 [place] node biopsy negative for metastatic disease. S: The patient returns today with concerns over an area of fullness in the left posterior axilla. She notes that this is an area which she had noted not too long after surgery. She was evaluated here in surgical oncology both clinically and with a fine-needle aspirate. 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 Since that time, things have been essentially stable. However, over the past several months, the patient wonders if it has not gotten larger. Her bra seems to be feeling differently and short-sleeve shirts seem to be showing the area. She has no pain in the area. There has been no difficulty with range of motion of the left upper extremity. She is, otherwise, feeling well systemically with good energy and good appetite. She denies any focal bony discomforts. O: There are no palpable cervical, clavicular, axillary or inguinal nodes. The abdomen is flat, soft and nontender. There is no organomegaly. The surgical incision site is well-healed with no evidence of underlying nodularity, satellitosis orintransit metastasis. The area of concern of the patient is the left posterior axilla where there is a visible and palpable area of fullness. This area is soft; it is relatively mobile, and is nontender. By gross measurement it is approximately 5.5 x 4 cm. is most consistent by history and clinical evaluation as being a lipoma. The patient is also seen and examined by Boo Lemons MD who is in concordance. A: Lipoma. No clinical evidence for recurrence of melanoma. P: The patient is reassured as to the diagnosis. However, she is also cautioned that should the areaseem to start to grow quickly or should it become more firm to the touch, that this would need to bereevaluated at that time. She understands this. She does have an appointment scheduled for this fallin the melanoma surveillance clinic. We will plan to recheck her here at that time. She is also encouraged to call should she have any questions, any problems. Signed by PARADISE Khan 11/23/2005 12:51 Nikos Rocha CFNP PARADISE Khan - PARADISE Khan P - kd Job ID: [id number] Document ID: [id number] cc: Shmuel Soni MD Cancer Data Registry documented in this encounter Plan of Treatment Not on filedocumented as of this encounter Visit Diagnoses Not on filedocumented in this encounter Care Teams Biscuit Machine Operator Relationship Specialty Start Date End Date Marifer Marino NP PCP - General 11/29/[address] [place] [id number] Shmuel Soni MD PCP - General 11/01/08 11/28/08 documented as of this encounter
--- OUTSIDE RECORDS SUMMARY | 2021-11-23 01:59 | XMS_ITS | Encounter Summary ---
:1945 Author Organization [facility] Address [address] [place] [address] Care Team Providers Name Role Phone Ned Marifer AC Primary Care Provider Shmuel Soni MD Primary Care Provider Unavailable Encounter Details Date Type Department Care Team Description 12/11/2005 Results Only [facility] - Raoul Dorado MD conversion [address] [facility] [address] [place] [phone] Social History Tobacco Use Types Packs/Day Years Used Date Never Assessed Sex Assigned at Date Recorded Not on file documented as of this encounter Plan of Treatment Not on filedocumented as of this encounter Procedures Procedure Name Priority Date/Time Associated Diagnosis Comme nts SURGICAL PATHOLOGY Routine 12/11/2005 0:00 EDT Re sults for this procedure are i n the results section. documented in this encounter Results SURGICAL PATHOLOGY (12/11/2005 0:00 EDT) Pathology Report: SURGICAL PATHOLOGY REPORT [facility] Reports generated via electronic interface contain karl ginal data; LAB however they are lacking the format of the original re port. Caution should be taken when reading/interpreting unfo rmatted reports. Name: ? LEEANNE BUSH ? Accession #: ? [id number] ? : ? 1945 (Age: 60) ??F ? Collect Date: ? 12/11/2005 ? Location: ? [facility] ? Receive Date: ? 006 ? Provider: RAOUL OROSCO MD Copy to: ? Final Pathologic Diagnosis: ? Skin of finger, right index, shave excision: - Digital mucous cyst. Document reviewed and electronically signed by: CRISTINE SHARP MD Report ??Date: 12/12/2005 17:18 By the signature above, the attending physician certif ies that he/she has personally conducted a gross and/or microscopic examin ation of the described specimens and rendered or confirmed the above diagnosi s. Specimen(s) Received: ? Mucous cyst, right index finger Clinical History: ? Mucous cyst right index finger Gross Description: ? Received in formalin labelled Rachelle is a 0. 7 x 0.3 x 0.2 cm shave biopsy of white callahan mottled skin that is bisected and submitted entirely in one cassette. (Dr. Tamara Jose)/mpl End of Report Specimen Performing Organization Address City/State/ZIP Code Phon e Number [facility] [address] [place] [address] SERVICES [facility] [address] [place] [address] documented in this encounter Visit Diagnoses Not on filedocumented in this encounter Care Teams Sheet Metal Supervisor Relationship Specialty Start Date End Date Marifer Marino NP PCP - General 11/29/08 [address] [place] [address] Shmuel Soni MD PCP - General 11/01/08 11/28/08 documented as of this encounter
--- OUTSIDE RECORDS SUMMARY | 2021-11-23 01:59 | XMS_ITS | Encounter Summary ---
:1945 Author Organization [facility] Address [address] [place] [address] Care Team Providers Name Role Phone Marifer Marino NP Primary Care Provider Encounter Details Date Type Department Care Team Description 01/09/2018 Hospital Encounter [facility]- Melanie Unknown, Provider, [facility] [address] [facility] [phone] [place] [address] (Work) [phone] Social History Tobacco Use Types Packs/Day Years Used Date Never Assessed Sex Assigned at Date Recorded Not on file documented as of this encounter Discharge Disposition Disposition Code Departure Means Destination Home or Self Custodial documented in this encounter Plan of Treatment Not on filedocumented as of this encounter Visit Diagnoses Not on filedocumented in this encounter Care Teams Water/Wastewater Project Engineer Relationship Specialty Start Date End Date Marifer Marino NP PCP - General 11/29/08 [address] [place], [place] [id number] documented as of this encounter
--- OUTSIDE RECORDS SUMMARY | 2021-11-23 01:59 | XMS_ITS | Encounter Summary ---
:1945 Author Organization [facility] Address [address] [place] [address] Care Team Providers Name Role Phone Lidia Marinohleen OSORIO Primary Care Provider Encounter Details Date Type Department Care Team Description 05/21/2020 Lab Requisition [facility] Outr Resulting Lab, Pathology & Laboratory Provider [facility] [address] [place] [address] Social History Tobacco Use Types Packs/Day Years Used Date Never Assessed Sex Assigned at Date Recorded Not on file documented as of this encounter Plan of Treatment Not on filedocumented as of this encounter Procedures Procedure Name Priority Date/Time Associated Diagnosis Comme nts CELIAC DISEASE Routine 05/20/2020 13:10 Results f or this PANEL EST procedure are i n the results section. documented in this encounter Results CELIAC DISEASE PANEL (05/20/2020 13:10 EST) Tissue <1.2 <4.0 U/mL [facility] Transglutaminase Comment: CENTER Antibody IGA A negative result may be due to IgA deficiency and does not rule out celiac disease. LABORATORY SERVICES ? Negative: ??<4.0 U/mL ? Weak Positive: ??4.0 - 10.0 U/mL ? Positive: ??>10.0 U/mL Results were obtained with leah darden [employer] QUANTA Lite R h-tTG IgA KENDALL assay on the [employer] DSX. IgA 135 85 - 499 [facility] mg/dL CENTER LABORATORY SERVICES Celiac Disease Negative Serology. [facility] Interpretation Celiac disease CENTER unlikely. LABORATORY Approximately 10% of SERVICES patients with celiac disease are seronegative. Patients who are already adhering to a gluten-free diet may also be seronegative. If celiac disease is highly clinically suspected, referral to gastroenterology for additional evaluation is recommended. Specimen Blood - Venous blood (substance) Performing Organization Address City/State/ZIP Code Phon e Number [facility] [address] [place] [address] SERVICES documented in this encounter Visit Diagnoses Not on filedocumented in this encounter Care Teams Associate Professor Of English Relationship Specialty Start Date End Date Marifer Marino NP PCP - General 11/29/[address] [place] [address] documented as of this encounter
--- OUTSIDE RECORDS SUMMARY | 2021-11-23 01:59 | XMS_ITS | Encounter Summary ---
:1945 Author Organization [facility] Address [address] [place] [address] Care Team Providers Name Role Phone Marifer Marino OSORIO Primary Care Provider Encounter Details Date Type Department Care Team Description 01/09/2018 Results Only [facility]- PRISM Tania Rey, [address] [address] (Wo rk) Social History Tobacco Use Types Packs/Day Years Used Date Never Assessed Sex Assigned at Date Recorded Not on file documented as of this encounter Plan of Treatment Not on filedocumented as of this encounter Procedures Procedure Name Priority Date/Time Associated Diagnosis Comme [facility] SURGICAL PATHOLOGY Routine 01/09/2018 16:51 Resul ts for this EDT procedure are i n the results section. documented in this encounter Results SURGICAL PATHOLOGY (01/09/2018 16:51 EDT) Pathology Report: SURGICAL PATHOLOGY REPORT [facility] Reports generated via electronic interface contain karl ginal data; LABORATORY however they are lacking the format of the original re port. SERVICES Caution should be taken when reading/interpreting unfo rmatted reports. Name: ? LEEANNE BUSH ? Accession #: ? [id number] ? : ? 1945 (Age: [age]) ??F ? Collect Date: ? 01/09/2018 ? Location: ? [facility] ? Receive Date: ? 8 ? Provider: TANIA REY MD Copy to: LEEANNE BUTCHER MD ? Final Pathologic Diagnosis: Colon, transverse, polypS, biopsy: - ??Fragments of hyperplastic/ inflammatory polyps. - ??Deeper levels examined. Document reviewed and electronically signed by: ERIC MARS MD Report ??Date: 01/15/2018 16:24 By the signature above, the attending physician certif ies that he/she has personally conducted a gross and/or microscopic examin ation of the described specimens and rendered or confirmed the above diagnosi s. Specimen(s) Received: Transverse colon polyps Clinical History: Change in bowel habits Gross Description: ? Received in formalin labelled with proper patient identification (initials C, S) and transverse colon polyps are six light callahan tissues (0.5 x 0.1 x 0.1 cm to 0.2 x 0.1 x 0.1 cm). Entirely submitted in 1 and 2. Dotty Gaitan 01/10/2018 8:12 AM End of Report Specimen Performing Organization Address City/State/ZIP Code Phon e Number [facility] [address] [place] [address] SERVICES documented in this encounter Visit Diagnoses Not on filedocumented in this encounter Care Teams Wire Welder Relationship Specialty Start Date End Date Marifer Marino NP PCP - General 11/29/08 [address] [place], [place] [address] documented as of this encounter
--- OUTSIDE RECORDS SUMMARY | 2021-11-23 01:59 | XMS_ITS | Encounter Summary ---
:1945 Author Organization [facility] Address [address] [place] [address] Care Team Providers Name Role Phone Marifer Marino OSORIO Primary Care Provider Encounter Details Date Type Department Care Team Description 11/25/2020 Lab Requisition [facility] Fidel Engel Epigastric pain; Pathology & MD Brennan Heartburn; Laboratory Medicine - [address] Other chest pain [facility] [address] [place] [phone] (Wo rk) Social History Tobacco Use Types Packs/Day Years Used Date Never Assessed Sex Assigned at Date Recorded Not on file documented as of this encounter Plan of Treatment Not on filedocumented as of this encounter Procedures Procedure Name Priority Date/Time Associated Diagnosis Comme nts SURGICAL PATHOLOGY Today 11/24/2020 12:14 Epigastric p ain Results for this EDT Heartburn procedure are in Other chest pain the results section. documented in this encounter Results SURGICAL PATHOLOGY (11/24/2020 12:14 EDT) Note to Patient The following [facility] MEDICAL pathology results CENTER have been interpreted LABORATORY by your pathologist SERVICES and may be available to you before your health provider has had the opportunity to review them. Please allow time for your provider to receive these results and explore management options, if applicable. Final Diagnosis A. DUODENUM, BIOPSY: [facility] MEDICAL - No significant pathologic abnormality C ENTER LABORATORY B. DUODENUM, BULB, BIOPSY: SERVICES - No significant pathologic abnormality C. STOMACH, ANTRUM, BIOPSY: - Mild reactive (chemical) gastropathy D. STOMACH, BODY, BIOPSY: - No significant pathologic abnormality Attestation By the signature [facility] MEDICAL Electronica lly below, the attending CENTER signed by Makeda, physician certifies LABORATORY Whitney Osborne MD on that they have 1) SERVICES 11/28/2020 at 1449 personally conducted a gross and/or microscopic examination of the described specimen(s), and/or personally interpreted the results of laboratory testing of the described specimen(s), and 2) personally rendered or confirmed the above diagnosis. Clinical History Epigastric pain, pyrosis, at ypical chest pain, gastric erosions; clinical diagnosis code: R10.13, R12, R07.89 [facility] SERVICES Gross Description A. [facility] MEDICAL Received in formalin pat d with proper patient identification (initials C, S) and A. Duodenum are 3 callahan-yellow tissues (0.2 x 0.2 x 0.1 cm to 0.7 x 0.2 x 0.1 cm). Entirely submitted in A1. CENTER LABORATORY B. SERVICES Received in formalin pat d with proper patient identification (initials C, S) and B. Duodenal bulb are 2 callahan-yellow tissues (0.2 x 0.1 x 0.1 cm and 0.6 x 0.3 x 0.1 cm). Entirely submitted in B1. C. Received in formalin pat d with proper patient identification (initials C, S) and C. Antrum are 2 callahan tissues (0.2 x 0.1 x 0.1 cm and 0.4 x 0.3 x 0.1 cm). Entirely submitted in C1. D. Received in formalin pat d with proper patient identification (initials C, S) and D. Body are 2 callahan-brown tissues (0.3 x 0.2 x 0.2 cm and 0.6 x 0.2 x 0.1 cm). Entirely submitted in D1. FALGUNI GUERRA(ASCP) 11/25/2020 8:28 Performing Lab [facility] SERVICES Scanned Images [facility] SERVICES Specimen Tissue - Entire stomach (body structure) Tissue specimen (specimen) - Entire smal l intestine (body structure) Tissue specimen (specimen) - Entire stom ach (body structure) Tissue specimen (specimen) - Entire stom ach (body structure) Performing Organization Address City/State/ZIP Code [facility] e Number [facility] [address] [place] [address] SERVICES documented in this encounter Visit Diagnoses Diagnosis Epigastric pain Abdominal pain, epigastric Heartburn Other chest pain documented in this encounter Care Teams Dough Panner Relationship Specialty Start Date End Date Marfier Marino NP PCP - General 11/29/08 [address] [place], [place] [id number] documented as of this encounter
--- OUTSIDE RECORDS SUMMARY | 2021-11-23 01:59 | XMS_ITS | Encounter Summary ---
:1945 Author Organization [facility] Address [address] [place] [address] Care Team Providers Name Role Phone Unavailable Primary Care Provider Unavailable Encounter Details Date Type Department Care Team Description 02/27/2006 Hospital Encounter [facility] - [facility] Tisha Natarajan, [facility] Unknown, Provider, [address] [place] [address] Social History Tobacco Use Types Packs/Day Years Used Date Never Assessed Sex Assigned at Date Recorded Not on file documented as of this encounter Discharge Disposition Disposition Code Departure Means Destination Auto Discharge documented in this encounter Plan of Treatment Not on filedocumented as of this encounter Procedures Procedure Name Priority Date/Time Associated Diagnosis Comme nts CYTOPATHOLOGY Routine 02/02/2008 0:00 EDT Results for this procedure are i n the results section . documented in this encounter Results CYTOPATHOLOGY (02/02/2008 0:00 EDT) Pathology Report: CYTOPATHOLOGY REPORT ? [facility] ? LAB Reports generated via electr [employer] interface contain original data; ? however they are lacking the format of the original report. ? Caution should be taken when reading/interpreting unformatted reports. ? Name: ? LEEANNE BUSH ? Accession #: ? [id number] ? : ? 1945 (Age: 62) ??F ?Collect Date: ? 02/02/2008 ? Location: ? [facility] ? Receive Date: ? 02/02/2008 ? Provider: ?CHERYL M RO WLETT COIL MACHINE OPERATOR ? Copy to: ? Specimen/Source: ? Pap Test, Vagina, ThinPrep Imaging System with manual ?? evaluation ? Last Menstrual Period: ? Previous Gynecologic Patholo gy: ? Yes: Melanoma 4/00 ? Treatment History: ? Hysterectomy: Vag. 1996 ? SPECIMEN ADEQUACY ? Satisfactory for Eval uation ? - assessment of transformati on zone component not applicable ( e.g. atrophy, ? vaginal sample, hysterectomy ) ? GENERAL CATEGORIZATION ? Negative for Intraepi thelial Lesion or Malignancy ? Document reviewed and electr onically signed by: ? Dinora Verville,CT(ASCP) ? Report Date: ??10/01/ 2008 10:59 ? End of Report ? Specimen Performing Organization Address City/State/ZIP Code Phon e Number [facility] [address] [place] [address] SERVICES [facility] [address] [place] [address] documented in this encounter Visit Diagnoses Not on filedocumented in this encounter
--- OUTSIDE RECORDS SUMMARY | 2021-11-23 02:00 | XMS_ITS | Encounter Summary ---
:[address] [facility] Address [address] [place] [address] Care Team Providers Name Role Phone Marifer Marino NP Primary Care Provider Shmuel Soni MD Primary Care Provider Unavailable Encounter Details Date Type Department Care Team Description 09/02/2003 Hospital Encounter [facility] - Caroline Farrell MD [address] [place] [address] [address] [place] [address] (Wo rk) Social History Tobacco Use Types Packs/Day Years Used Date Never Assessed Sex Assigned at Date Recorded Not on file documented as of this encounter Plan of Treatment Not on filedocumented as of this encounter Visit Diagnoses Not on filedocumented in this encounter Care Teams Bakery Clerk Relationship Specialty Start Date End Date Marifer Marino NP PCP - General 11/29/08 [address] [place], [place] [address] Shmuel Soni MD PCP - General 11/01/08 11/28/08 documented as of this encounter
--- OUTSIDE RECORDS SUMMARY | 2021-11-23 02:00 | XMS_ITS | Encounter Summary ---
:1945 Author Organization [facility] Address [address] [place] [address] Care Team Providers Name Role Phone Marifer Marino NP Primary Care Provider Shmuel Soni MD Primary Care Provider Unavailable Encounter Details Date Type Department Care Team Description 08/15/1999 Hospital Encounter [facility] - Darrius Gonzalez MD [address] [facility] [address] [place] [address] Other Unknown, Provider, [address] [place] [address] Social History Tobacco Use Types Packs/Day Years Used Date Never Assessed Sex Assigned at Date Recorded Not on file documented as of this encounter Plan of Treatment Not on filedocumented as of this encounter Procedures Procedure Name Priority Date/Time Associated Diagnosis Comme [facility] SURGICAL PATHOLOGY Routine 08/15/1999 15:00 Resul ts for this EDT procedure are i n the results section. documented in this encounter Results SURGICAL PATHOLOGY (08/15/1999 15:00 EDT) Pathology Report: SURGICAL PATHOLOGY REPORT [facility] Reports generated via electronic interface contain karl ginal data; LAB however they are lacking the format of the original re port. Caution should be taken when reading/interpreting unfo rmatted reports. Name: ? LEEANNE BUSH ? Accession #: ? [id number] ? : ? 1945 (Age: 53) ??F ? Collect Date: ? 08/15/1999 ? Location: ?Receive Date: ? 08/15/1999 ? Provider: KYLIE GONZALEZ MD Copy to: KYLIE GONZALEZ MD DOCTOR UNKNOWN MD ? Final Pathologic Diagnosis: DIAGNOSIS: ? 1. ??Skin of cheek, left, excision: ? - Malignant melanoma, non-ulcerated, inva sive. ??See ? microscopic and comment. ? - Tumor extends into and focally fills pa pillary dermis ? (Ronaldo's Level III). ? - Melanoma thickness (Breslow Level) 1.24 mm. ? - Melanoma shows prominent involvement of follicular ? epithelium. ? - No lymphovascular invasion identified. ? - No evidence of complete regression. ? - Margins negative for tumor (in situ lacey anoma present ? approximately 1.5 mm from 3 o'clock ma rgin and 2.0 mm from ? 9 o'clock margin). ? - Incidental melanocytic nevus, intraderm al type. ? 2. ??Skin of back, mid, excision: ? - Epidermal reparative change with dermal scar, granulation ? tissue formation, foreign body giant c ell reaction and fat ? necrosis. ? Comment: COMMENT: ? We agree entirely with the submitting pathologi sts's assessment. ? We feel that the lesion from left cheek consi sts of an invasive ? malignant melanoma occurring on chronically sun damaged skin. ? (Dr. Branch)/tmg ?? Microscopic Description: MICROSCOPIC: ? Sections labelled A consist of an excision of skin that ? includes a portion of subcutis. ??Centrally, th ere is a dome- ? shaped papule formed by a proliferation of anson nocytes. ??The ? junctional component of the proliferation exten ds well beyond the ? papule and consists of nests and individual jose c ls. ??The nests ? vary greatly in size and shape with focal confl uence between rete ? ridges. ??The individual melanocytes are uneven ly spaced and show ? areas of confluent growth as well as upward patricio ration into the ? upper stratum spinosum. ??There is extensive in volvement of ? follicular epithelium by the melanocytes. ??The melanocytes are ? enlarged and have abundant eosinophilic cytopla sm. ??The nuclei ? are pleomorphic with round, lobulated contours and prominent ? nucleoli. ??Occasional bizarre forms with large pseudoinclusions ? are noted. ??Similar melanocytes are noted with in the dermis, ? particularly in the area of the papule. ??These are arranged in ? large nests and confluent sheets showing no mat uration with ? descent. ??Six mitoses per 10 high power meredith (HPF=0.54 mm) are ? found. ??There is a non-brisk infiltrate of lym phocytes in the ? vicinity of the dermal melanocytes. ??There is vascular ectasia ? but no definitive lymphovascular invasion is id entified. ??Changes ? of regression are not noted. ??The dermis shows extensive solar ? elastosis. ??(Dr. Branch)/tmg ? Document reviewed and electronically signed by: Conversion for CRISTINE BRANCH Report ??Date: 08/23/1999 00:00 By the signature above, the attending physician certif ies that he/she has personally conducted a gross and/or microscopic examin ation of the described specimens and rendered or confirmed the above diagnosi s. Specimen(s) Received: TISSUE SUBMITTED: ? [facility] [id number] (11) CLINICAL DATA: ? Melanoma Gross Description: GROSS: ? Eleven slides are received for review from [facility], ? one each labelled [id number] A1, [id number] A2 , [id number] A3, ? [id number] A4, [id number] A5, [id number] A5 r ecut, [id number] ? A6, [id number] B1, [id number] B2, [id number] B3, [id number] ? B4. ?? End of Report Specimen Performing Organization Address City/State/ZIP Code Phon e Number [facility] [address] [place] [address] SERVICES [facility] [address] [place] [address] documented in this encounter Visit Diagnoses Not on filedocumented in this encounter Care Teams Mail Officer Relationship Specialty Start Date End Date Marifer Marino NP PCP - General 11/29/08 [address] [place] [address] Shmuel Soni MD PCP - General 11/01/08 11/28/08 documented as of this encounter
--- OUTSIDE RECORDS SUMMARY | 2021-11-23 02:00 | XMS_ITS | Encounter Summary ---
:1945 Author Organization [facility] Address [address] [place] [address] Care Team Providers Name Role Phone Ned Marifer AC Primary Care Provider Shmuel Soni MD Primary Care Provider Unavailable Encounter Details Date Type Department Care Team Description 09/01/2003 Hospital Encounter [facility] - Albert Farrell MD Other [address] [place] [address] [address] [place] [address] (Wo rk) Social History Tobacco Use Types Packs/Day Years Used Date Never Assessed Sex Assigned at Date Recorded Not on file documented as of this encounter Plan of Treatment Not on filedocumented as of this encounter Procedures Procedure Name Priority Date/Time Associated Diagnosis Comme [facility] SURGICAL PATHOLOGY Routine 09/01/2003 0:00 EDT Re sults for this procedure are i n the results section. documented in this encounter Results SURGICAL PATHOLOGY (09/01/2003 0:00 EDT) Pathology SURGICAL PATHOLOGY REPORT [facility] Report: Reports generated via electronic interface contain karl ginal data; LAB however they are lacking the format of the original re port. Caution should be taken when reading/interpreting unfo rmatted reports. Name: ? LEEANNE BUSH ? Accession #: ? [id number] ? : ? 1945 (Age: 57) ??F ? Collect Date: ? 09/01/2003 ? Location: ? [facility] ? Receive Date: ? 004 ? Provider: ALBERT FARRELL MD Copy to: ? Final Pathologic Diagnosis: ? Skin of neck, posterior, shave biopsy: - Granulomatous dermatitis. ??See microscopic and comm ent. Comment: ? The biopsy is thin and only a small portion of superficial dermis is represented. ??The dermis has a cellular infiltrate th at is predominated by macrophages. ??The macrophag es are accompanied by a small number of eosinophils and rare multinucleate giant cells. ??In some ar eas, the histiocytes assume a somewhat palisaded arrangement (as seen in granu alexia annulare), however, full assessment of the pattern is precluded by the superficial nature of the biopsy. Additional sections were prepared by the immunohistoch emical technique to exclude the possibility of L angerhans cell histiocytosis and a mast cell lesion. The predominance of [id number] cells support s the granulomatous nature of the infiltrate. ??Dr. Ren Hoyt has reviewed this case. ??(Dr. Branch)/[facility] Microscopic Description: ? Sections consist of a small shave biopsy of ski n that transects the superficial reticular dermis . ??The epidermis shows a mild degree of hyperplasia with elongate and tapered re te ridges. ??Within the dermis, there is a cellular infiltrate that consists mainly of mononuclear c ells. ??The mononuclear cells have a moderate amount of ill-defined, lightly eosinop hilic cytoplasm. ??The nuclei are round-oval to slightly folded and have smud gy chromatin. ??A rare mitotic figure is noted. ??Scattered eosinophils are p resent and there are a moderate number of small lymphocytes that are clustere d around the vascular plexus. ??In some areas, the mononuclear cells are arr anged in somewhat of a palisaded arrangement and are associated with ra re multinucleate giant cells. Additional sections were pre pared by the immunohistochemical technique and show that the majority of the mon onuclear cells within the dermis are immunoreactive for CD68 (KP1) (KP1, Dako). ?? A small number of mononuclear cells within the dermis are immunoreactive for Ckit (poly clonal, Dako), presumably representing mast cells. ??Scattered derm al cells show immunoreactivity for CD1a (010, Dako) and S-100 protein (polyclona l, Dako), presumably representing Langerhans cells. (Dr. Branch)/[facility] ? NOTE: ??One or more of the reagents used in immunohistochemical testing in this case may not have been cleared or approved by the U.S. Food and Drug Administration (FDA). ??The FDA has determined that such clearance or approval is not necessary. ??These tests are used for clinical purposes. ??They should not be regarded as investigational or for research. ??These r eagents' ??performance characteristics have been determined by [facility]. ??This laboratory is certified unde r the Clinical Laboratory Improvement Amendments of 1988 (CLIA-88) as qualified to perform high complexity clinical laboratory testing. ?? Document reviewed and electronically signed by: Philly Branch MD Report ??Date: 09/08/2003 15:06 By the signature above, the attending physician certif ies that he/she has personally conducted a gross and/or microscopic examin ation of the described specimens and rendered or confirmed the above diagnosi s. Specimen(s) Received: ? Posterior neck Clinical History: ? Could excise; H/O MM & BCC; BCC. ??Clinical aparna gnosis code: 238.2 Gross Description: ? Received in formalin labelled Rachelle only is a shave biopsy of white-callahan skin measuring 0.5 x 0.3 x 0.1 cm. ??The specimen is bisected and submitted in one cassette. ??(Dr. Rosa-HOLLIS)/veronica End of Report Specimen Performing Organization Address City/State/ZIP Code Phon e Number [facility] [address] [place] [address] SERVICES [facility] [address] [place] [phone] documented in this encounter Visit Diagnoses Not on filedocumented in this encounter Care Teams Powertrain Calibration Engineer Relationship Specialty Start Date End Date Ready, Marifer, LEAD INJECTION MOLD TECHNICIAN PCP - General 11/29/08 1 [place] [address] Shmuel Soni MD PCP - General 11/01/08 11/28/08 documented as of this encounter
--- OUTSIDE RECORDS SUMMARY | 2021-11-23 02:00 | XMS_ITS | Encounter Summary ---
:1945 Author Organization [facility] Address [address] [place] [address] Care Team Providers Name Role Phone Ned Marifer AC Primary Care Provider Shmuel Soni MD Primary Care Provider Unavailable Encounter Details Date Type Department Care Team Description 11/27/2001 Hospital Encounter [facility] - Abel Casas MD [address] [facility] [address] [place] [address] Other Unknown, Provider, [address] [place] [address] Social History Tobacco Use Types Packs/Day Years Used Date Never Assessed Sex Assigned at Date Recorded Not on file documented as of this encounter Plan of Treatment Not on filedocumented as of this encounter Procedures Procedure Name Priority Date/Time Associated Diagnosis Comme nts SURGICAL PATHOLOGY Routine 11/27/2001 0:00 EDT Re sults for this procedure are i n the results section. documented in this encounter Results SURGICAL PATHOLOGY (11/27/2001 0:00 EDT) Pathology Report: SURGICAL PATHOLOGY REPORT [facility] Reports generated via electronic interface contain karl ginal data; LAB however they are lacking the format of the original re port. Caution should be taken when reading/interpreting unfo rmatted reports. Name: ? LEEANNE BUSH ? Accession #: ? [id number] ? : ? 1945 (Age: 56) ??F ? Collect Date: ? 11/27/2001 ? Location: ? [facility] ? Receive Date: ? 002 ? Provider: BRIANNE CASAS MD Copy to: ? Final Pathologic Diagnosis: ? Skin of chest, left upper, shave biopsy: - Basal cell carcinoma, superficial multicentric type. Document reviewed and electronically signed by: Philly Branch MD Report ??Date: 12/01/2001 16:24 By the signature above, the attending physician certif ies that he/she has personally conducted a gross and/or microscopic examin ation of the described specimens and rendered or confirmed the above diagnosi s. Specimen(s) Received: ? Shave bx L upper back Clinical History: ? 1.0 cm pink macule, SBCC; clinical diagnosis co de: ??709.9 Gross Description: ? Received in formalin labelled [place] and left upper chest is a shave biopsy measuring 0.6 x 0.5 by less than 0.1 cm. ??The surface is slightly irregular and yellow. ??The specimen is trisected and entirely submitted in one cassette. ??(Dr. Kinney)/[facility] End of Report Specimen Performing Organization Address City/State/ZIP Code Phon e Number [facility] [address] [place] [address] SERVICES [facility] [address] [place] [address] documented in this encounter Visit Diagnoses Not on filedocumented in this encounter Care Teams Jewel Blocker And Sawyer Relationship Specialty Start Date End Date Marifer Marino NP PCP - General 11/29/08 1 [place], [place] [id number] Shmuel Soni MD PCP - General 11/01/08 11/28/08 documented as of this encounter
--- OUTSIDE RECORDS SUMMARY | 2021-11-23 02:00 | XMS_ITS | Encounter Summary ---
:1945 Author Organization [facility] Address [address] [place] [address] Care Team Providers Name Role Phone Marifer Marino NP Primary Care Provider Shmuel Soni MD Primary Care Provider Unavailable Encounter Details Date Type Department Care Team Description 11/08/1999 Results Only [facility] - Mónica Crystal ANTIQUE REFINISHER conversion [address] [place] [address] Social History Tobacco Use Types Packs/Day Years Used Date Never Assessed Sex Assigned at Date Recorded Not on file documented as of this encounter Plan of Treatment Not on filedocumented as of this encounter Procedures Procedure Name Priority Date/Time Associated Diagnosis Comme nts CYTOPATHOLOGY Routine 11/08/1999 0:00 EDT Results for this procedure are i n the results section . documented in this encounter Results CYTOPATHOLOGY (11/08/1999 0:00 EDT) Pathology Report: CYTOPATHOLOGY REPORT [facility] Reports generated via electronic interface contain karl ginal data; however they are lacking the format of the original re port. Caution should be taken when reading/interpreting unfo rmatted reports. Name: ? LEEANNE BUSH ? Accession #: ? [id number] : ? 1945 (Age: 54) ??F ?Collect Date: ? 09/1999 Location: ? [facility] ? Receive Date : ? 11/10/1999 Provider: ?MÓNICA MURRAY ANTIQUE REFINISHER Copy to: ? Specimen/Source: ?ThinPrep Pap Test, Vagina Last Menstrual Period: ? 1995 Hormonal/Contraceptive Status: ? Yes Other: ? Additional clinical information: Hx of melanoma ? SPECIMEN ADEQUACY ? Satisfactory for evaluation. GENERAL CATEGORIZATION ? Within Normal Limits ? Document reviewed and electronically signed by: ? PRIMO Bates(ASCP) ? Report Date: ??11/14/1999 09:11 End of Report Specimen Performing Organization Address City/State/ZIP Code Phon e Number [facility] [address] [place] [address] [facility] [address] [place] [address] documented in this encounter Visit Diagnoses Not on filedocumented in this encounter Care Teams Industrial Design Intern Relationship Specialty Start Date End Date Marifer Marino NP PCP - General 11/29/08 1 [place] [address] Shmuel Soni MD PCP - General 11/01/08 11/28/08 documented as of this encounter
--- OUTSIDE RECORDS SUMMARY | 2021-11-23 02:00 | XMS_ITS | Encounter Summary ---
:1945 Author Organization [facility] Address [address] [place] [address] Care Team Providers Name Role Phone Marifer Marino NP Primary Care Provider Shmuel Soni MD Primary Care Provider Unavailable Encounter Details Date Type Department Care Team Description 11/02/2002 Results Only [facility] - Mónica Crystal SPOUTER conversion [address] [place] [address] Social History Tobacco Use Types Packs/Day Years Used Date Never Assessed Sex Assigned at Date Recorded Not on file documented as of this encounter Plan of Treatment Not on filedocumented as of this encounter Procedures Procedure Name Priority Date/Time Associated Diagnosis Comme nts CYTOPATHOLOGY Routine 11/02/2002 0:00 EDT Results for this procedure are i n the results section . documented in this encounter Results CYTOPATHOLOGY (11/02/2002 0:00 EDT) Pathology Report: CYTOPATHOLOGY REPORT [facility] Reports generated via electronic interface contain karl ginal data; however they are lacking the format of the original re port. Caution should be taken when reading/interpreting unfo rmatted reports. Name: ? LEEANNE BUSH ? Accession #: ? [id number] : ? 1945 (Age: 57) ??F ?Collect Date: ? 10/06 Location: ? [facility] ? Receive Date : ? 11/04/2002 Provider: ?MÓNICA MURRAY SPOUTER Copy to: ? Specimen/Source: ?ThinPrep Pap Test, Cervix/ Endocervix Last Menstrual Period: ? 1995 Hormonal/Contraceptive Status: ? Estrogen: patch Previous Gynecologic Pathology: ? Yes: Melanoma 2000 ? SPECIMEN ADEQUACY ? Satisfactory for Evaluation - transformation zone component absent GENERAL CATEGORIZATION ? Negative for Intraepithelial Lesion or Malignan cy INTERPRETATION ? Fungal organisms pres ent morphologically consistent with Renate species. ? Document reviewed and electronically signed by: ? PRIMO Yee(ASCP) ? Report Date: ??11/10/2002 08:47 End of Report Specimen Performing Organization Address City/State/ZIP Code Phon e Number [facility] [address] [place] [address] SERVICES [facility] [address] [place] [address] documented in this encounter Visit Diagnoses Not on filedocumented in this encounter Care Teams Noodle Press Operator Relationship Specialty Start Date End Date Marifer Marino NP PCP - General 11/29/08 1 [place] [address] Shmuel Soni MD PCP - General 11/01/08 11/28/08 documented as of this encounter
--- OUTSIDE RECORDS SUMMARY | 2021-11-23 02:00 | XMS_ITS | Encounter Summary ---
:1945 Author Organization [facility] Address [address] [place] [address] Care Team Providers Name Role Phone Unavailable Primary Care Provider Unavailable Encounter Details Date Type Department Care Team Description 08/20/2000 Hospital Encounter [facility] Orville Mckee Jr., [facility] [address] [phone] [address] [place] [address] (Wo rk) Social History Tobacco Use Types Packs/Day Years Used Date Never Assessed Sex Assigned at Date Recorded Not on file documented as of this encounter Discharge Disposition Disposition Code Departure Means Destination Auto Discharge documented in this encounter Plan of Treatment Not on filedocumented as of this encounter Procedures Procedure Name Priority Date/Time Associated Diagnosis Comme [facility] SURGICAL PATHOLOGY Routine 08/20/2000 0:00 EDT Re sults for this procedure are i n the results section. documented in this encounter Results SURGICAL PATHOLOGY (08/20/2000 0:00 EDT) Pathology Report: SURGICAL PATHOLOGY REPORT [facility] Reports generated via electronic interface contain karl ginal data; LAB however they are lacking the format of the original re port. Caution should be taken when reading/interpreting unfo rmatted reports. Name: ? LEEANNE BUSH ? Accession #: ? [id number] ? : ? 1945 (Age: 54) ??F ? Collect Date: ? 08/20/2000 ? Location: ? [facility] ? Receive Date: ? 001 ? Provider: ORVILLE MCKEE MD Copy to: ? Final Pathologic Diagnosis: ? Skin of neck, left, excision: - Follicular cyst, infundibular type. Document reviewed and electronically signed by: Philly Branch MD Report ??Date: 08/21/2000 16:12 By the signature above, the attending physician certif ies that he/she has personally conducted a gross and/or microscopic examin ation of the described specimens and rendered or confirmed the above diagnosi s. Specimen(s) Received: ? Cyst left neck Clinical History: ? Follicular cyst Gross Description: ? Received in formalin labelled [place] and cy st left neck is an unoriented elliptical excision of skin m easuring 1.5 x 0.4 x 1.0 cm. ??A small amount of subcutaneous fatty tissue is present w hich measures 1.3 x 0.4 x 0.3 cm. ??The surgical excision margins are inked black, and the specimen is serially sectioned to reveal a cystic nodule with callahan-white greasy cystic contents. ??The cyst measures 0.5 cm in diameter. ??The entire specime n is submitted as (A1) through (A3). ??(Dr. Arevalo)/miya End of Report Specimen Performing Organization Address City/State/ZIP Code Phon e Number [facility] [address] [place] [address] SERVICES [facility] [address] [place] [address] documented in this encounter Visit Diagnoses Not on filedocumented in this encounter
--- OUTSIDE RECORDS SUMMARY | 2021-11-23 02:00 | XMS_ITS | Encounter Summary ---
:1945 Author Organization [facility] Address [address] [place] [address] Care Team Providers Name Role Phone Unavailable Primary Care Provider Unavailable Encounter Details Date Type Department Care Team Description 06/07/2000 Hospital Encounter [facility] - Mara Natarajan CFNP Other Unknown, Provider, [address] [place] [address] 32 Social History Tobacco Use Types Packs/Day Years Used Date Never Assessed Sex Assigned at Date Recorded Not on file documented as of this encounter Discharge Disposition Disposition Code Departure Means Destination Auto Discharge documented in this encounter Plan of Treatment Not on filedocumented as of this encounter Procedures Procedure Name Priority Date/Time Associated Diagnosis Comme nts CYTOPATHOLOGY Routine 06/07/2000 0:00 EST Results for this procedure are i n the results section . documented in this encounter Results CYTOPATHOLOGY (06/07/2000 0:00 EST) Pathology Report: CYTOPATHOLOGY REPORT [facility] Reports generated via electronic interface contain karl ginal data; however they are lacking the format of the original re port. Caution should be taken when reading/interpreting unfo rmatted reports. Name: ? LEEANNE BUSH ? Accession #: ? [id number] : ? 1945 (Age: 54) ??F ?Collect Date: ? 06/2000 Location: ? [facility] ? Receive Date : ? 06/07/2000 Provider: ? NELIDA NATARAJAN CFNP Copy to: ? CYTOLOGIC DIAGNOSIS: A. ?Soft tissue of axilla, left, site #1, fine needle aspiration: 1. ?Fragments o f fibrofatty adipose tissue consistent with lipoma. 2. ?No malignant cells identified. ??See comment. B. ?Soft tissue of chest wall, left, mid axillary line, site #2, fine needle aspiration: 1. ?Fragments o f fibrofatty adipose tissue consistent with lipoma. ?? 2. ?No malignant cells identified. ??See comment. ? COMMENT: ? The patient' s previous surgical case showing a Ronaldo' s level III malignant melanoma ([id number] ) is not available for review. ??The current material shows no evidence of metastatic disease, however, clin ical correlation is recommended. ??(Dr. Camejo)/[facility] Document reviewed and electronically signed by: ? ROB CAMEJO MD Report Date: ??06/12/2000 11:33 By the signature above, the attending physician certif ies that he/she has personally conducted a gross and/or microscopic examin ation of the described specimens and rendered or confirmed the above diagnosi s. Specimen Type: ? A: Left Axilla, Site #1 B: Chest Wall , Site #2 Clinical History: ? H/o Ronaldo' s III; Lauryn slow 1.24. ??Sent node (-) melanoma from face . Palpable area left posterior axilla. Clinical diagnosis code: 173.3 ? Rapid Interpretation: A. ?Axilla left , site #1, palpation guided FNA: Consistent with lipoma. No evidence of melanoma. B. ?Chest wall, left, site #2, palpation guided FNA: Fragments of fibrous tissue. ??No evidence of melanoma. ??(Poncho grace M.D.; 06/07/00) ? I have reviewed the fellow' s interpretation and agree with the fellow' s diagnosis. ??(Rob Camejo M.D.; 06/07/00) Gross Description: ? 2 tubes of cytolyt, 6 fixed prepared and 10 air dried prepared slides were received and processed. ? End of Report Specimen Performing Organization Address City/State/ZIP Code Phon e Number [facility] [address] [phone] SERVICES [facility] [address] [place] [address] documented in this encounter Visit Diagnoses Not on filedocumented in this encounter
--- OUTSIDE RECORDS SUMMARY | 2021-11-23 02:00 | XMS_ITS | Encounter Summary ---
:1945 Author Organization [facility] Address [address] [place] [address] Care Team Providers Name Role Phone Ned Marifer AC Primary Care Provider Shmuel Soni MD Primary Care Provider Unavailable Encounter Details Date Type Department Care Team Description 04/12/2000 Hospital Encounter [facility] - Abel Casas MD [address] [facility] [address] [place] [address] Other Unknown, Provider, [address] [place] [address] Social History Tobacco Use Types Packs/Day Years Used Date Never Assessed Sex Assigned at Date Recorded Not on file documented as of this encounter Plan of Treatment Not on filedocumented as of this encounter Procedures Procedure Name Priority Date/Time Associated Diagnosis Comme [facility] SURGICAL PATHOLOGY Routine 04/12/2000 0:00 EST Re sults for this procedure are i n the results section. documented in this encounter Results SURGICAL PATHOLOGY (04/12/2000 0:00 EST) Pathology Report: SURGICAL PATHOLOGY REPORT [facility] Reports generated via electronic interface contain karl ginal data; LAB however they are lacking the format of the original re port. Caution should be taken when reading/interpreting unfo rmatted reports. Name: ? LEEANNE BUSH ? Accession #: ? [id number] ? : ? 1945 (Age: 54) ??F ? Collect Date: ? 04/12/2000 ? Location: ? [facility] ? Receive Date: ? 000 ? Provider: BRIANNE CASAS MD Copy to: ? Final Pathologic Diagnosis: ? Skin of shoulder, right, shave biopsy: - Basal cell carcinoma, superficial and nodular type. Document reviewed and electronically signed by: Philly Branch MD Report ??Date: 04/15/2000 18:43 By the signature above, the attending physician certif ies that he/she has personally conducted a gross and/or microscopic examin ation of the described specimens and rendered or confirmed the above diagnosi s. Specimen(s) Received: ? Shave bx ??R shoulder Clinical History: ? [facility] ??8 mm pink plaque on R shou lder; clinical diagnosis code: ??709.9 Gross Description: ? Received in formalin labelled Rachelle a nd R shoulder is a callahan-white shave biopsy of skin measuri ng 0.5 x 0.5 x 0.2 cm. The specimen is trisected and entirely submitted in one cassette. ??(Dr. Rosenberg)/[facility] End of Report Specimen Performing Organization Address City/State/ZIP Code Phon e Number [facility] [address] [place] [address] SERVICES [facility] [address] [place] [address] documented in this encounter Visit Diagnoses Not on filedocumented in this encounter Care Teams Director Of Special Services Relationship Specialty Start Date End Date Marifer Marino NP PCP - General 11/29/08 [address] [place], [place] [address] Shmuel Soni MD PCP - General 11/01/08 11/28/08 documented as of this encounter
--- OUTSIDE RECORDS SUMMARY | 2021-11-23 02:00 | XMS_ITS | Encounter Summary ---
:1945 Author Organization [facility] Address [address] [place] [address] Care Team Providers Name Role Phone Unavailable Primary Care Provider Unavailable Encounter Details Date Type Department Care Team Description 09/12/[address] [facility] - Orville Mckee Jr., [facility] [address] [facility] [address] [place] [address] [address] [phone] [place] [address] (Wo rk) Social History Tobacco Use Types Packs/Day Years Used Date Never Assessed Sex Assigned at Date Recorded Not on file documented as of this encounter Discharge Disposition Disposition Code Departure Means Destination Home or Self Care documented in this encounter Plan of Treatment Not on filedocumented as of this encounter Procedures Procedure Name Priority Date/Time Associated Diagnosis Comme nts SURGICAL PATHOLOGY Routine 09/13/1999 8:24 EDT Re sults for this procedure are i n the results section. NM INJECTION ONLY Routine 09/12/1999 12:32 Result s for this EDT procedure are i n the results section. documented in this encounter Results SURGICAL PATHOLOGY (09/13/1999 8:24 EDT) Pathology SURGICAL PATHOLOGY REPORT [facility] Report: Reports generated via electronic interface contain karl ginal data; LAB however they are lacking the format of the original re port. Caution should be taken when reading/interpreting unfo rmatted reports. Name: ? KAJAL BUSH ? Accession #: ? [id number] ? : ? 1945 (Age: 53) ??F ? Collect Date: ? 09/13/1999 ? Location: ?Receive Date: ? 09/13/1999 ? Provider: ORVILLE MCKEE MD Copy to: ORVILLE MCKEE MD TUMOR REGISTRY ? Final Pathologic Diagnosis: MICROSCOPIC DIAGNOSIS: ? 1. ??Lymph node, left upper neck, sentinel node , HS #1, CT #1158, ? excision: ? - One lymph node negative for tumor (0/1) . ??See comment. ? 2. ??Lymph node, left upper neck, sentinel node , HS #1, CT #1392, ? excision: ? - One lymph node negative for tumor (0/1) . ? - Portion of benign salivary gland. ? 3. ??Skin of cheek, left, wide excision: ? - Epidermal reparative change and dermal scar with suture ? granuloma. ? - No residual melanoma identified. ??See comment. ? - Chronic solar damage with atypical anson nocytic hyperplasia. ? - Atypical melanocytes present at laci ins of excision. ? Comment: COMMENT: ? The current material was interpreted in conjunc tion with ? material previously reviewed at our institution ([id number], S00- ? 1410) from this anatomic site. ??The current wi de excision shows ? a central zone of epidermal and dermal reparati ve change with ? exuberant foreign body giant cell reaction to s uture material. ? The dermis away from the area of scar shows ext ensive solar ? elastosis. ??The melanocytes of the epidermis, including those at ? the periphery of excision, are slightly increas ed in number. ? They are unevenly distributed and include atypi corrie forms, some ? of which are noted above the basal zone. ??The cellular density, ? however, does not reach that seen in the melano ma as represented ? on the previous material. ??The diffuse nature of the hyperplasia ? suggests that it is a part of chronic solar dam age. Further, ? atypical melanocytes are present at the margins of the wide ? excision. ??The lymph nodes were evaluated by s erial H+E sections ? as well as sections prepared by the immunohisto chemical ? technique for S-100 protein (polyclonal, Dako) and HMB45 (HMB45, ? Nikolas). ??Sections stained for S-100 protein eleuterio w scattered cells ? in a perifollicular architecture that are inter preted by their ? cytologic features as follicular dendritic cell s and ? macrophages. There is no evidence of metastatic melanoma. ? Therefore, based upon the previous material (le emanuel III, ? thickness 1.24 mm) and the current specimen, th e melanoma ? represents an AJCC: pT2N0. ??(Dr. Branch)/ljn ? Document reviewed and electronically signed by: Conversion for CRISTINE BRANCH Report ??Date: 09/19/1999 00:00 By the signature above, the attending physician certif ies that he/she has personally conducted a gross and/or microscopic examin ation of the described specimens and rendered or confirmed the above diagnosi s. Specimen(s) Received: TISSUE SUBMITTED: ? 1. ??Left upper neck sentinel node, HS #1, CT # 1158 ? 2. ??Left upper neck sentinel node, HS #1, CT # 1392 ? 3. ??Wide excision melanoma left cheek - suture superior CLINICAL DATA: Gross Description: GROSS: ? Received in normal saline labelled Rachelle quispe d #1 left upper ? neck sentinel node, HS #1, CT #1158 is a 1.4 x 0.9 x 0.5 cm ? ovoid pink-davidson glistening portion of tissue. ? ?Sections through ? the specimen reveal callahan-yellow and focally hemo rrhagic tissue. ? The bisected specimen is submitted entirely as (A). ? Received in normal saline labelled Rachelle an d #2 left upper ? neck sentinel node, HS #1, CT #1392 is a 0.9 x 0.5 x 0.4 cm ? portion of pink-callahan tissue with focally adheren t yellow-callahan ? adipose tissue. ??The specimen is submitted int act as (B). ? Received in normal saline labelled Rachelle an d #3 wide ? excision melanoma left cheek - suture superior is a 6.0 x 2.0 x ? 0.7 cm ellipse of pink-white skin and subcutis. ??Running along ? the skin surface slightly eccentrically is a 4. 2 cm well healed ? scar. ??A suture is present at the superior tip which is ? arbitrarily designated as the 12 o'clock positi on. ??The 3 ? o'clock half of the specimen is inked blue and the 9 o'clock ? half of the specimen is inked black. ??The spec imen is serially ? sectioned from superior toward inferior and sub mitted entirely ? as (C) superior tip (12 o'clock), (D) through ( L) central ? sections progressing from superior towards infe rior, and (M) ? inferior tip (6 o'clock), reverse en face. ??(Natalia Novak- ? [place])/ljn ? End of Report Specimen Performing Organization Address City/[facility] Phon e Number [facility] [address] [place] [address] SERVICES [facility] [address] [place] [address] NM INJECTION ONLY (09/12/1999 12:32 EDT) Anatomical Region Laterality Modality Other Specimen Narrative [facility] - 03/15/2009 12 :35 EST RADIOCOLLOID LT CHEEK INJ ONLY-TO BE DONE IN THE OR-MELANOMA SURGERY @ 12:10 RADIOCOLLOID INJECTION FOR MELANOMA: 09/11, 1220 No comparison. HISTORY: Left cheek injection for melanoma. Surge ry to follow. 500 uCi Tc-99m Sulfur Colloid are inject ed intradermally around the melanoma site. No images are obtained. The attending radiologist has reviewed t his report and sgrees with the findings. /sb Procedure Note Pierre Senior MD / Humble Noe MD - 03/15/2009 RADIOCOLLOID LT CHEEK INJ ONLY-TO BE DON E IN THE OR-MELANOMA SURGERY @ 12:10 RADIOCOLLOID INJECTION FOR MELANOMA: 09/11, 1220 No comparison. HISTORY: Left cheek injection for melanoma. Surge ry to follow. 500 uCi Tc-99m Sulfur Colloid are inject ed intradermally around the melanoma site. No images are obtained. The attending radiologist has reviewed t his report and sgrees with the findings. /sb Performing Organization Address City/State/ZIP Code Phon e Number [facility] [address] [facility] [address] [facility] [address] [place], [place] [address] documented in this encounter Visit Diagnoses Not on filedocumented in this encounter
--- OUTSIDE RECORDS SUMMARY | 2021-11-23 02:00 | XMS_ITS | Encounter Summary ---
:1945 Author Organization [facility] Address [address] [place] [address] Care Team Providers Name Role Phone Ned Marifer AC Primary Care Provider Shmuel Soni MD Primary Care Provider Unavailable Encounter Details Date Type Department Care Team Description 08/16/[address] [facility] Kylie Gonzalez MD Surgical Oncology - [address], [address] [place] [address] [place], [place] [phone] (Wo rk) Social History Tobacco Use Types Packs/Day Years Used Date Never Assessed Sex Assigned at Date Recorded Not on file documented as of this encounter Plan of Treatment Not on filedocumented as of this encounter Procedures Procedure Name Priority Date/Time Associated Diagnosis Comme [facility] SURGICAL PATHOLOGY Routine 08/16/1999 12:00 Resul ts for this EDT procedure are i n the results section. documented in this encounter Results SURGICAL PATHOLOGY (08/16/1999 12:00 EDT) Pathology Report: SURGICAL PATHOLOGY REPORT [facility] Reports generated via electronic interface contain karl ginal data; LAB however they are lacking the format of the original re port. Caution should be taken when reading/interpreting unfo rmatted reports. Name: ? LEEANNE BUSH ? Accession #: ? [id number] ? : ? 1945 (Age: 53) ??F ? Collect Date: ? 08/16/1999 ? Location: ?Receive Date: ? 08/16/1999 ? Provider: KYLIE GONZALEZ MD Copy to: KYLIE GONZALEZ MD DOCTOR UNKNOWN MD ? Final Pathologic Diagnosis: DIAGNOSIS: ? Skin of cheek, left preauricular, punch biopsy: ? - Malignant melanoma, non-ulcerated, invasive. ??See microscopic ? and comment. ? - Melanoma extends at least into papillary derm is (at least ? Ronaldo's Level II). ? - Melanoma thickness (Breslow's Level) at least 0.44 mm. ? - No regression identified. ? - No lymphovascular invasion identified. ? 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 ? Comment: COMMENT: ? Although the biopsy shows a central round nodul e of somewhat ? spindle shaped melanocytes, we do not feel the features are those ? of a cellular blue nevus. ??We feel that the fi ndings are those of ? a malignant melanoma based upon the presence of an intraepidermal ? component showing confluence and upward migrati on of single ? atypical melanocytes. ??Further, the nodular co llection within the ? dermis appears to be extensive involvement of a follicular ? structure by the malignant melanocytes. ??Becau se much of the ? dermal (invasive) component of the melanoma is in the vicinity of ? the follicle, exact determination of the level and thickness is ? somewhat difficult. ??When considering those is lands ? from the adventitial sheath of the follicle, th e level appears to ? be at least II with a thickness of 0.44 mm. ??H owever, in situ ? melanoma extends to the edges of the biopsy spe cimen and, ? therefore, the actual level and thickness may b e greater. ??( ? Jose Carlos)/tmg ? Microscopic Description: MICROSCOPIC: ? Sections consist of a punch biopsy of skin. ??T he epidermis is of ? relatively normal thickness but has a diminutiv e rete ? architecture. ??There is an increased number of melanocytes along ? the basal zone, some of which form ill-defined nests. ??A majority ? of the melanocytes are disposed as individual c ells. ??The ? individual melanocytes are unevenly spaced and show confluence ? focally in the center of the biopsy. ??In addit ion, individual ? melanocytes are noted above the basal zone, par ticularly in the ? mid portion of the biopsy where they are noted in the upper ? stratum spinosum. ??Centrally, there is a dilat ed follicular ? structure. ??The epithelium of the follicle eleuterio ws a marked ? proliferation of melanocytes forming confluent nests. ? Individual melanocytes are noted in all levels of the follicular ? epithelium including individual cells within th e follicular ? lumen. ??The melanocytes are enlarged and have a moderate amount ? of cytoplasm containing coarse melanin pigment. ??The nuclei are ? hyperchromatic, spindle to angulate and some swift ve prominent ? nucleoli. ??A rare mitotic figure is identified . ??Within the ? dermis, immediately surrounding the follicle, a re islands of ? similar appearing melanocytes that show no tend ency toward ? maturation. ??There is a non-brisk infiltrate o f lymphocytes and ? histiocytes. ??Changes of regression are not id entified, nor is ? there is definitive lymphovascular invasion. ?? The dermis shows ? extensive solar elastosis. ??(Dr. Branch)/[facility]mg ? Document reviewed and electronically signed by: Conversion for CRISTINE BRANCH Report ??Date: 08/23/1999 00:00 By the signature above, the attending physician certif ies that he/she has personally conducted a gross and/or microscopic examin ation of the described specimens and rendered or confirmed the above diagnosi s. Specimen(s) Received: TISSUE SUBMITTED: ? [facility] israel [id number] (1) CLINICAL DATA: ? Blue nevus Gross Description: GROSS: ? One slide is received for review from Dermatopa thology Laboratory ? [facility] labelled [id number]. ?? End of Report Specimen Performing Organization Address City/State/ZIP Code Phon e Number [facility] [address] [place] [address] SERVICES [facility] [address] [place] [address] documented in this encounter Visit Diagnoses Not on filedocumented in this encounter Care Teams Inseminator Relationship Specialty Start Date End Date Marifer Marino NP PCP - General 11/29/08 [address] [place] [id number] Shmuel Soni MD PCP - General 11/01/08 11/28/08 documented as of this encounter
--- OUTSIDE RECORDS SUMMARY | 2021-11-23 02:00 | XMS_ITS | Encounter Summary ---
:1945 Author Organization [facility] Address [address] [place] [address] Care Team Providers Name Role Phone Ned Marifer AC Primary Care Provider Shmuel Soni MD Primary Care Provider Unavailable Encounter Details Date Type Department Care Team Description 10/16/1999 Hospital Encounter [facility] - Abel Casas MD 30 [facility] [address] [place] [address] Other Unknown, Provider, [address] [place] [address] Social History Tobacco Use Types Packs/Day Years Used Date Never Assessed Sex Assigned at Date Recorded Not on file documented as of this encounter Plan of Treatment Not on filedocumented as of this encounter Procedures Procedure Name Priority Date/Time Associated Diagnosis Comme nts SURGICAL PATHOLOGY Routine 10/16/1999 0:00 EDT Re sults for this procedure are i n the results section. documented in this encounter Results SURGICAL PATHOLOGY (10/16/1999 0:00 EDT) Pathology Report: SURGICAL PATHOLOGY REPORT [facility] Reports generated via electronic interface contain karl ginal data; LAB however they are lacking the format of the original re port. Caution should be taken when reading/interpreting unfo rmatted reports. Name: ? LEEANNE BUSH ? Accession #: ? [id number] ? : ? 1945 (Age: 54) ??F ? Collect Date: ? 10/16/1999 ? Location: ? [facility] ? Receive Date: ? 000 ? Provider: BRIANNE CASAS MD Copy to: ? Final Pathologic Diagnosis: ? Skin of leg, left, punch biopsy: - ??Basal cell carcinoma, superficial multicentric typ e. Document reviewed and electronically signed by: Philly Branch MD Report ??Date: 10/18/1999 17:21 By the signature above, the attending physician certif ies that he/she has personally conducted a gross and/or microscopic examin ation of the described specimens and rendered or confirmed the above diagnosi s. Specimen(s) Received: ? 3.5 mm punch bx L leg Clinical History: ? Inflammatory vs neoplasm lesion; erythematous p apule x 2-3 wk; recent melanoma, back and face; clinical diagnosis code: 709. 9 Gross Description: ? Received in formalin labelled [place] and left leg is a callahan, circular 0.3 cm skin punch excised to a depth of 0.3 cm. ??The specimen is entirely submitted in one cassette. ??(Carola Bustillo)/[facility] End of Report Specimen Performing Organization Address City/State/ZIP Code Phon e Number [facility] [address] [place] [address] SERVICES [facility] [address] [place] [address] documented in this encounter Visit Diagnoses Not on filedocumented in this encounter Care Teams Delivery Professional Relationship Specialty Start Date End Date Marifer Marino NP PCP - General 11/29/08 1 [place], [place] [address] Shmuel Soni MD PCP - General 11/01/08 11/28/08 documented as of this encounter
--- OUTSIDE RECORDS SUMMARY | 2021-11-23 02:00 | XMS_ITS | Encounter Summary ---
:1945 Author Organization [facility] Address [address] [place] [address] Care Team Providers Name Role Phone Marifer Marino NP Primary Care Provider Shmuel Soni MD Primary Care Provider Unavailable Encounter Details Date Type Department Care Team Description 04/15/2001 Hospital Encounter [facility] - Caroline Farrell MD [address] [facility] [address] [place] [address] Other Unknown, Provider, [address] [place], [place] [id number] Social History Tobacco Use Types Packs/Day Years Used Date Never Assessed Sex Assigned at Date Recorded Not on file documented as of this encounter Plan of Treatment Not on filedocumented as of this encounter Visit Diagnoses Not on filedocumented in this encounter Care Teams Filling Mixer Relationship Specialty Start Date End Date Marifer Marino NP PCP - General 11/29/08 1 [place], [place] [id number] Shmeul Soni MD PCP - General 11/01/08 11/28/08 documented as of this encounter
--- OUTSIDE RECORDS SUMMARY | 2021-11-23 02:00 | XMS_ITS | Encounter Summary ---
:1945 Author Organization [facility] Address [address] [place] [address] Care Team Providers Name Role Phone Ned Marifer AC Primary Care Provider Shmuel Soni MD Primary Care Provider Unavailable Encounter Details Date Type Department Care Team Description 10/28/2000 Hospital Encounter [facility] - Abel Casas MD [address] [facility] [address] [place] [address] Other Unknown, Provider, [address] [place] [address] Social History Tobacco Use Types Packs/Day Years Used Date Never Assessed Sex Assigned at Date Recorded Not on file documented as of this encounter Plan of Treatment Not on filedocumented as of this encounter Procedures Procedure Name Priority Date/Time Associated Diagnosis Comme nts SURGICAL PATHOLOGY Routine 10/28/2000 0:00 EDT Re sults for this procedure are i n the results section. documented in this encounter Results SURGICAL PATHOLOGY (10/28/2000 0:00 EDT) Pathology Report: SURGICAL PATHOLOGY REPORT [facility] Reports generated via electronic interface contain karl ginal data; LAB however they are lacking the format of the original re port. Caution should be taken when reading/interpreting unfo rmatted reports. Name: ? LEEANNE BUSH ? Accession #: ? [id number] ? : ? 1945 (Age: 55) ??F ? Collect Date: ? 10/28/2000 ? Location: ? [facility] ? Receive Date: ? 001 ? Provider: BRIANNE CASAS MD Copy to: ? Final Pathologic Diagnosis: ? Skin of arm, left, shave biopsy: 1. ?Basal cell carcinoma, nodular type. Document reviewed and electronically signed by: KRISTI BRAVO MD Report ??Date: 10/30/2000 17:17 By the signature above, the attending physician certif ies that he/she has personally conducted a gross and/or microscopic examin ation of the described specimens and rendered or confirmed the above diagnosi s. Specimen(s) Received: ? Shave bx L arm Clinical History: ? BCC vs. DF; 3 mm fles h colored papule L arm; clinical diagnosis code: 709.9 Gross Description: ? Received in formalin labelled Rachelle and L arm is a 0.3 x 0.3 x 0.2 cm shave biopsy of a callahan-white papule. ??The specimen is bisected and submitted entirely in one cassette. ??(Dr. Schreiber)/miya End of Report Specimen Performing Organization Address City/State/ZIP Code Phon e Number [facility] [address] [place] [address] SERVICES [facility] [address] [place] [address] documented in this encounter Visit Diagnoses Not on filedocumented in this encounter Care Teams Sales Team Recruiter Relationship Specialty Start Date End Date Marifer Marino NP PCP - General 11/29/08 [address] [place] [id number] Shmuel Soni MD PCP - General 11/01/08 11/28/08 documented as of this encounter
--- OUTSIDE RECORDS SUMMARY | 2021-11-23 02:00 | XMS_ITS | Encounter Summary ---
:1945 Author Organization [facility] Address [address] [place] [address] Care Team Providers Name Role Phone Unavailable Primary Care Provider Unavailable Encounter Details Date Type Department Care Team Description 04/11/2001 Hospital Encounter [facility] - Albert Farrell MD [address] [place] [address] Other Unknown, Provider, [address] [place], [place] [address] Social History Tobacco Use Types Packs/Day Years Used Date Never Assessed Sex Assigned at Date Recorded Not on file documented as of this encounter Discharge Disposition Disposition Code Departure Means Destination Auto Discharge documented in this encounter Plan of Treatment Not on filedocumented as of this encounter Procedures Procedure Name Priority Date/Time Associated Diagnosis Comme nts SURGICAL PATHOLOGY Routine 04/11/2001 0:00 EST Re sults for this procedure are i n the results section. documented in this encounter Results SURGICAL PATHOLOGY (04/11/2001 0:00 EST) Pathology Report: SURGICAL PATHOLOGY REPORT [facility] Reports generated via electronic interface contain karl ginal data; LAB however they are lacking the format of the original re port. Caution should be taken when reading/interpreting unfo rmatted reports. Name: ? LEEANNE BUSH ? Accession #: ? [id number] ? : ? 1945 (Age: 55) ??F ? Collect Date: ? 04/11/2001 ? Location: ? [facility] ? Receive Date: ? 001 ? Provider: ALBERT FARRELL MD Copy to: BETH GONZALEZ MD ? Final Pathologic Diagnosis: ? Skin of arm, left inner upper, shave biopsy: 1. ?Melanocytic nevus, compound typ e, with unusual architectural features and mild-moderate cytologic atypia. ? - Lesion does not ext end to edges of shave biopsy specimen in the plane of the sections ??examined. Microscopic Description: ? The epidermis is hype rplastic with elongate and anastomosing rete ridges. There is a small, circumscri bed compound proliferation of melanocytes with both epidermal and dermal components. ??The junctiona l melanocytes are arranged in nests and as individual cells. ??The nests predominate but vary to moderate degree in size, shape, and s pacing. ??The nests are located between and the sides of rete ridges, in addition to at the tips of th e ridges. ??Nests bridge rete ridges. ??The melanocytes ar e enlarged and have ill-defined cytoplasm containing melanin pigment. ??The nucle i show a moderate degree of size and shape variation with occasional large, irregular forms. ??The dermal c omponent consists of a small number of nests and cords of similar melanocytes that show ad copy writer maturation with descent. 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 ??(Dr. Branch)/d Document reviewed and electronically signed by: Philly Branch MD Report ??Date: 04/15/2001 15:32 By the signature above, the attending physician certif ies that he/she has personally conducted a gross and/or microscopic examin ation of the described specimens and rendered or confirmed the above diagnosi s. Specimen(s) Received: ? L inner upper arm Clinical History: ? Atypical nevus, patient has H/O MM; clinical di agnosis code: 238.2 Gross Description: ? Received in formalin labelled [place] is a callahan curling 0.6 x 0.5 cm skin shave with an eccentric callahan- brown mottled 0.2 x 0.2 cm macule. ??The specimen is trisected and entirely submitted in one cassette. ??(Lexie Avila)/[facility] End of Report Specimen Performing Organization Address City/State/ZIP Code Phon e Number [facility] [address] [place] [address] SERVICES [facility] [address] [place] [address] documented in this encounter Visit Diagnoses Not on filedocumented in this encounter
--- OUTSIDE RECORDS SUMMARY | 2021-11-23 02:00 | XMS_ITS | Encounter Summary ---
:1945 Author Organization [facility] Address [address] [place] [address] Care Team Providers Name Role Phone Unavailable Primary Care Provider Unavailable Encounter Details Date Type Department Care Team Description 08/18/1999 Hospital Encounter [facility] - Prem Dowell Prospect MD [address] [place] [address] Social History Tobacco Use Types Packs/Day Years Used Date Never Assessed Sex Assigned at Date Recorded Not on file documented as of this encounter Discharge Disposition Disposition Code Departure Means Destination Auto Discharge documented in this encounter Plan of Treatment Not on filedocumented as of this encounter Procedures Procedure Name Priority Date/Time Associated Diagnosis Comme nts CHEST PA AND Routine 08/18/1999 13:20 Results for this LATERAL EDT procedure are i n the results section. documented in this encounter Results CHEST PA AND LATERAL (08/18/1999 13:20 EDT) Anatomical Region Laterality Modality Other Specimen Narrative [facility] - 03/15/2009 15 :17 EST PREOP, LEFT CHEEK R/O METASTATIC DISEASE PA AND LATERAL CHEST 08/18/99 HISTORY: Pre-op left cheek cancer. Rule out metastatic disease. There are no nodules, infiltrates or ple ural effusion. The heart bones and soft tissues are normal. IMPRESSION: Normal chest, no evidence of metastatic disease. 08/20/99/vwilfredo Procedure Note Sacha Colunga MD - 03/15/2009 PREOP, LEFT CHEEK R/O METASTATIC DISEASE PA AND LATERAL CHEST 08/18/99 HISTORY: Pre-op left cheek cancer. Rule out metastatic disease. There are no nodules, infiltrates or ple ural effusion. The heart bones and soft tissues are normal. IMPRESSION: Normal chest, no evidence of metastatic disease. 08/20/99/jyothi Performing Organization Address City/State/ZIP Code Phon e Number [facility] [address] [address] [facility] [address] [place], [place] [address] documented in this encounter Visit Diagnoses Not on filedocumented in this encounter
--- OUTSIDE RECORDS SUMMARY | 2021-11-23 02:00 | XMS_ITS | Encounter Summary ---
:1945 Author Organization [facility] Address [address] [place] [address] Care Team Providers Name Role Phone Marifer Marino NP Primary Care Provider Shmuel Soni MD Primary Care Provider Unavailable Encounter Details Date Type Department Care Team Description 08/16/1999 Hospital Encounter [facility] - Darrius Lemons MD [address] [facility] [address] [place] [address] Other Unknown, Provider, [address] [place], [place] [id number] Social History Tobacco Use Types Packs/Day Years Used Date Never Assessed Sex Assigned at Date Recorded Not on file documented as of this encounter Plan of Treatment Not on filedocumented as of this encounter Visit Diagnoses Not on filedocumented in this encounter Care Teams Router Operator Radial Relationship Specialty Start Date End Date Marifer Marino NP PCP - General 11/29/08 1 [place], [place] [address] Shmuel Soni MD PCP - General 11/01/08 11/28/08 documented as of this encounter
--- OUTSIDE RECORDS SUMMARY | 2021-11-23 02:00 | XMS_ITS | Encounter Summary ---
:1945 Author Organization [facility] Address [address] [place] [address] Care Team Providers Name Role Phone Marifer Marino NP Primary Care Provider Shmuel Soni MD Primary Care Provider Unavailable Encounter Details Date Type Department Care Team Description 10/21/2000 Results Only [facility] - Mónica Crystal WOUND TREATMENT RN conversion [address] [place] [address] Social History Tobacco Use Types Packs/Day Years Used Date Never Assessed Sex Assigned at Date Recorded Not on file documented as of this encounter Plan of Treatment Not on filedocumented as of this encounter Procedures Procedure Name Priority Date/Time Associated Diagnosis Comme nts CYTOPATHOLOGY Routine 10/21/2000 0:00 EDT Results for this procedure are i n the results section . documented in this encounter Results CYTOPATHOLOGY (10/21/2000 0:00 EDT) Pathology Report: CYTOPATHOLOGY REPORT [facility] Reports generated via electronic interface contain karl ginal data; however they are lacking the format of the original re port. Caution should be taken when reading/interpreting unfo rmatted reports. Name: ? LEEANNE BUSH ? Accession #: ? [id number] : ? 1945 (Age: 55) ??F ?Collect Date: ? 10/04 Location: ? [facility] ? Receive Date : ? 10/23/2000 Provider: ?MÓNICA MURRAY WOUND TREATMENT RN Copy to: ? Specimen/Source: ?ThinPrep Pap Test, Vagina Last Menstrual Period: ? 1995 Hormonal/Contraceptive Status: ? Hormone Replacement Therapy Previous Gynecologic Pathology: ? Yes: hx melanoma 1999 ? SPECIMEN ADEQUACY ? Satisfactory for evaluation. GENERAL CATEGORIZATION ? Within Normal Limits ? Document reviewed and electronically signed by: ? PRIMO Rivera(ASCP) ? Report Date: ??10/24/2000 08:02 End of Report Specimen Performing Organization Address City/State/ZIP Code Phon e Number [facility] [address] [place] [address] SERVICES [facility] [address] [place] [address] documented in this encounter Visit Diagnoses Not on filedocumented in this encounter Care Teams All Terrain Vehicle Racer Relationship Specialty Start Date End Date Marifer Marino NP PCP - General 11/29/08 [address] [place] [address] Shmuel Soni MD PCP - General 11/01/08 11/28/08 documented as of this encounter
[2021-11-23] MEDS: Albuterol HFA 18 GM 200 PUFF INH IH ×2 (16:32→16:33)
[2021-11-23] MEDS: Inhaler, Assist Device 1 EACH MC (16:32)
--- NOTE | 2021-11-24 14:48 | W.PFT ---
Date of service: 11/23/21 Time of Service: 15:05 Pulmonary Function Test Result Requesting Provider Leeanne Schultz Indications: Asthma Interpretation Spirometry: There is no airflow limitation. There is not a significant bronchodilator response. Lung Volumes: Lung volumes are normal Diffusion Capacity: Normal diffusion Airway Pressure: Normal airways resistance. Impression Normal pulmonary function testing. Clinical Correlation therefore is recommended.
== END 2021-11-23 01:51 | disposition home or self-care (01) ==
LOC: RT 01:50
PROVIDERS: PCP Family Medicine; Visit Provider Student in an Organized Health Care Education/Training Program
DX: J45.20 Mild intermittent asthma, uncomplicated (principal); Z87.891 Personal history of nicotine dependence
CPT/HCPCS: 94060; 94726; 94729

== ENCOUNTER → 2021-12-19 20:52 | Outpatient (CLI) | payer MEDICARE, SELFPAY ==
--- NOTE | 2021-12-19 | DI.RAD_ITS ---
Exam(s) XR CERVICAL SPINE COMP 4-5V EXAM: XR CERVICAL SPINE COMP 4-5V CLINICAL HISTORY: NECK PAIN--M54.2, CERVICAL DISC DEGENERATION--M50.30. TECHNIQUE: 2D digital imaging was performed. COMPARISON: No exams were available for comparison FINDINGS: Five views: There is no evidence of acute fracture. There is chronic disc space narrowing at C5-6 and C6-7 level s. There is degenerative anterolisthesis of C4 upon C5, with approximately 4 millimeters anterior slippa ge of C4 upon C5, this related to advanced facet arthropathy at this level. There is relative preser vation of disc height evident at this level as well as the levels above this level. There is no true offset of the spinal laminar line. No obvious fracture of the odontoid. Multilevel Luschka joint osteophytes are noted bilaterally as s een on the oblique views. No cervical ribs evident. No significant osseous lesions. IMPRESSION: Chronic degenerative changes as described above. No acute fractures evident. DATA REPOSITORY: RADIATION DOSE DELIVERED:
== END ==
PROVIDERS: PCP Family Medicine; Visit Provider Nurse Practitioner Family
DX: M43.12 Spondylolisthesis, cervical region (principal)
CPT/HCPCS: 72050

== ENCOUNTER 2022-02-06 11:41 | Emergency (ER) | payer MEDICARE, SELFPAY ==
[2022-02-06 11:44] VITALS: BP 136/73; PULSE 84; RESP 18; TEMP 36; O2SAT 98
--- OUTSIDE RECORDS SUMMARY | 2022-02-06 11:47 | XMS_ITS | Encounter Summary ---
:1945 [place] [address] Care Team Providers Name Role Phone Leeanne Schultz MD Primary Care Provider Encounter Details Date Type Department Care Team Description 09/25/2021 Office Visit Dermatology at [facility] [place] Edgar S CC (squamous cell carcinoma), leg, right; Road SK (seborrheic keratosis); [address] [facility] Multiple benign nevi; [place] [address] [address] Sidhu; [phone] [facility] History of anson noma; -DERMATOLOGY History of nonmelanoma skin cancer; [place], [place] [address] History of dysplastic nevus Social History [...] SCCis (ED&C, 04/24/2018) 09/11/21: right mid medial alxe, SCC s/p ED&C BCC y Left leg BCC, 10/1999 (outside path) Right shoulder BCC, 04/2000 (outside path) Left arm, BCC, 10/2000 (outside path) Left upper chest, BCC, 11/2001 (outside path) 2009 Basal cell carcinoma on her left mid back, excised AKs y ?? Blistering sunburns or tanning bed use y She grew up in [place] with a history of extensive sun exposure. [...] for full skin exam []Note routed to backing in machine tender []Recall placed in scheduling system [x]Appointment scheduled at checkout Scribe attestation: Miguel Angel Evans CMA has performed the documentation for this encounter in the presence of and acting as a scribe for [place] Edgar MD. I performed the above scribed service and agree with the accuracy of the documentation in this encounter. Reviewed and signed by: [place] Edgar MD Dermatology [facility] documented in this encounter Plan of Treatment Upcoming Encounters Date Type Specialty Care Team Description 03/14/2022 Office Visit Dermatology [place] Edgar MD [facility] ER [address] [place], [place] [address] (Wo rk) documented as of [...] tissue documented in this encounter Care Teams Brake Tester Relationship Specialty Start Date End Date Leeanne Schultz MD PCP - General 10/28/13 [address] [place] [address] documented as of this encounter
--- OUTSIDE RECORDS SUMMARY | 2022-02-06 11:47 | XMS_ITS | Encounter Summary ---
:1945 Author Organization [facility] [place] [address] Care Team Providers Name Role Phone Leeanne Schultz MD Primary Care Provider Encounter Details Date Type Department Care Team Description 12/16/2020 Anesthesia Event Gastroenterology at [facility] [place] [address] ANESTHESIOLOGY [place], [place] [address] Anesthesia Record Procedure Summary Procedure [...] arm), DELROY Roach Michael W, RN right; mfnu-fuw-rnzrzf catheter system; Anatomical Landmarks; 22 gauge; Turner [...] Procedure Summary Date: 12/16/20 Room / Location: [facility] ENDO 3 / [facility] ENDOSCOPY Anesthesia Start: 1408 Anesthesia Stop: 1435 Procedures: UPPER EUS- ENDOSCOPIC ULTRASOUND (N/A Trunk) EGD, UPPER GI ENDOSCOPY (N/A Trunk) Diagnosis: (cervical subepithelial nodule vs extrinsic compression) Surgeons: Driss Gilbert MD Responsible Provider: Jonathan Quan MD Anesthesia Type: MAC ASA Status: 2 All Anesthesia Providers: Anesthesiologist: Jonathan Quan MD TEACHER OF THE HANDICAPPED: Daryl Gilmore CRNA Vitals Value Taken Time [...] Visit Dermatology [place] Edgar MD [facility] ER [address] [place] [address] (Wo rk) documented as of this encounter [...] Routine documented in this encounter Care Teams Tax Services Intern Relationship Specialty Start Date End Date Leeanne Schultz MD PCP - General 10/28/13 [address] [place] [address] documented as of this encounter
--- OUTSIDE RECORDS SUMMARY | 2022-02-06 11:47 | XMS_ITS | Encounter Summary ---
:1945 Author Organization [facility] [place] [address] Care Team Providers Name Role Phone Leeanne Schultz MD Primary Care Provider Encounter Details Date Type Department Care Team Description 12/16/2020 Surgery Gastroenterology at [facility] Driss Gilbert, UPPER EUS- ENDOSCOPIC [facility] Kwasi fernández [place] [address] [facility] [phone] [place], [place] [address] Social History Tobacco Use Types [...] the day after the procedure, use an mjes-ovt-hvlzlji spray to numb yourthroat. Sucking on throat [...] occurs, please contact your Doctor. Please call [phone] before 8pm Mon-Fri with problems, questions or concerns. If you call after 8pm or on weekends, call the Hospital at [phone] and ask to speak to the Fitness Floor Attendant field professional and the paper core machine operator will contact that person for you. When should you call for help? Call [phone] anytime you think you may need emergency [...] any problems. Where can you learn more? [facility] View your After Visit Summary and more online at [email or web address] If you would like to provide feedback about your hospital experience, please call the Office of Patient and Family Relations at . If you have received this After Visit Summary in error, please immediately return it in person to the department, or notify the [facility] Privacy Office by calling toll free at between the hours of 8AM and 5PM to arrange for our retrieval of the documents at no cost to you. Content Version: 12.2 ?? 8890-0799 [employer]. Care instructions adapted under license by [facility]. If you have questions about a medical condition or this instruction, always ask your healthcare professional. [employer] disclaims any warranty or liability for your [...] the day after the procedure, use an mnyi-jsn-owvwcus spray to numb yourthroat. Sucking on throat [...] occurs, please contact your Doctor. Please call [phone] before 8pm Mon-Fri with problems, questions or concerns. If you call after 8pm or on weekends, call the Hospital at [phone] and ask to speak to the Fitness Floor Attendant field professional and the paper core machine operator will contact that person for you. When should you call for help? Call [phone] anytime you think you may need emergency [...] any problems. Where can you learn more? [facility] View your After Visit Summary and more online at [email or web address] If you would like to provide [...] cost to you. Content Version: 12.2 ?? 4170-0582 [employer]. Care instructions adapted under license by [facility]. If you have questions about a medical condition or this instruction, always ask your healthcare professional. [employer] disclaims any warranty or liability for your use of this information. documented in this encounter Medications at Time of Discharge Medication Sig Dispensed Refills Start Date End Date tretinoin (RETIN-A) 0.05 % Apply 1-2 nights per 45 g 06/14/2020 Cream week, working up to nightly. amoxicillin-clavulanate Take 1 tablet by 20 tablet 0 2017 (AUGMENTIN) 875-125 mg mouth 2 times daily. Tablet clonazePAM (KLONOPIN) 1 mg 0 4 tablet amlodipine (NORVASC) 10 mg Take 10 mg by mouth 0 tablet daily. buPROPion (WELLBUTRIN SR) Take 150 mg by mouth 0 09/12/2010 150 mg 12 hr tablet daily. Albuterol, Refill, 90 Inhale 2 puffs into 0 09/12 mcg/Actuation Aero the lungs every 4 hours as needed. citalopram (CeleXA) 40 mg Take 40 mg by mouth 0 0 09/12/2010 Tablet nightly. levothyroxine (SYNTHROID) Take 75 mcg by mouth 0 150 mcg tablet daily. zolpidem (AMBIEN) 10 mg Take 5 mg by mouth 0 09/03 [address]. [address] 1 patch onto 6 patch 0 12/19/2015 (TRANSDERM-SCOP) 1.5 mg (1 the skin every 3 mg over 3 days) patch 3 days. dayIndications: Counseling about travel, H/O motion sickness pimecrolimus (ELIDEL) 1 % Apply topically 2 30 g 1 05/2015 Cream times daily. As need for redness / rash on face documented as of this encounter H&P Notes [...] Operative Note Patient Name: Leeanne Bush : [id number] MR#: [id number] Case Date: 12/16/2020 Surgeon: Surgeon(s) and Role: * Driss Gilbert MD - Primary * Porfirio Fountain MD - Fellow Procedure(s): UPPER EUS- ENDOSCOPIC ULTRASOUND EGD, UPPER GI ENDOSCOPY Please see Provation report for details. documented in this encounter Plan of Treatment Upcoming Encounters Date Type Specialty Care Team Description 03/14/2022 Office Visit Dermatology [place] Edgar MD [facility] [address] [place], [place] [address] (Wo rk) documented as of [...] Component Value Ref Test Analysis Performed At [facility] gist Range Method Time Signature UPPER [facility] PROVATION ENDOSCOPIC Endoscopy ULTRASOUND _ Procedure Date: 12/16/2020 1:53 PM ? Patient Name: Leeanne Bush ? N: [id number] ? Date of : 1945 ? Age: 75 ? Order #: [id number] ? Instrument Name: [id number] ? Procedure: ? Upper EUS Indications: ? [...] Procedure Code(s): ?? --- Professional --- ? 16028, Esophagogastroduodenos copy, ? flexible, transoral; with end oscopic ? ultrasound examination limite d to the ? esophagus, stomach or duodenu m, and ? adjacent structures Diagnosis Code(s): ?? --- Professional --- ? 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 --- Technical --- ? 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 All rights reserved. The codes documented in this report are preliminary and upon outpatient coder review may be revised to meet current [...] Procedure) documented in this encounter Care Teams 1[address] [place]man Relationship Specialty Start Date End Date Leeanne Schultz MD PCP - General 10/28/13 [address] [place] [address] documented as of this encounter
--- OUTSIDE RECORDS SUMMARY | 2022-02-06 11:47 | XMS_ITS | Encounter Summary ---
:1945 Author Organization [facility] [place] [address] Care Team Providers Name Role Phone Leeanne Schultz MD Primary Care Provider Encounter Details Date Type Department Care Team Description 03/14/2021 Office Visit Urology at [facility] Pelvic organ prolapse [facility] MD Felisha quantification stage 3 [facility] [place] [address] UROLOGY DEPT. [phone] [place], [place] [address] Social History Tobacco Use Types [...] 03/14/2022 Office Visit Dermatology [place] Edgar MD [facility] [address] DIANA CANAS-DERMAT [place], [place] [address] (Wo rk) documented as of this encounter Visit Diagnoses Diagnosis Pelvic organ prolapse quantification sta ge 3 rectocele documented in this encounter Care Teams Bass String Winder Relationship Specialty Start Date End Date Leeanne Schultz MD PCP - General 10/28/13 [address] [place] [address] documented as of this encounter
--- OUTSIDE RECORDS SUMMARY | 2022-02-06 11:47 | XMS_ITS | Encounter Summary ---
:1945 Author Organization [facility] [place] [address] Care Team Providers Name Role Phone Leeanne Schultz MD Primary Care Provider Reason for Visit Reason Comments Genetic Evaluation Consultation (Routine) - Closed Specialty Diagnoses / Procedures Referred By Contact Refer red To Contact Hematology and Oncology Diagnoses Personal history of malignant melanoma of skin Leeanne Schultz MD [facility] Hem Onc Office [address] [place] [id number] [place] [phone] Phone: Fax: Referral ID Status Reason Start Date Expiration Date Visits V isits Requested Authorized [id number] Closed Consult, Test 11/18/2020 11/18/2021 [facility] PCP Updated and/or Approved Encounter Details Date Type Department Care Team Description 03/20/2021 TH Visit Hematology and Elisa Sexton, Personal hi story of malignant melanoma of skin; (TeleHealth) [facility] at [facility] Family history of gene mutation; [facility] Family hi story of pancreatic cancer; [facility] [address] Family history of prostate cancer [place], [place] HEMATOLOGY/ONCOLO [address] GY DEPT. [phone] [place], [place] [address] Social History Tobacco Use Types [...] mutation Son 43 Maternal ethnic background is Estonian. Paternal ethnic background is Welsh, Micronesian. Genetic risk assessment Ivet's son had genetic [...] in the family. Ivet opted fortesting with [employer] Multi-Cancer Panel, a next generation sequencing panel that simultaneously analyzes 84 genes, including FRANK, BRCA1 and BRCA2, that contribute to increased risk for cancer. Leeanne gave verbal consent for testing. I will be mailing the consent forms to Ivet to complete and return to me. [facility] will send [facility] saliva collection kit with [...] Visit Dermatology [place] Edgar MD [facility] [address] DIANA CANAS-DERMAT [place], [place] [address] (Wo rk) documented as of this encounter Visit Diagnoses Diagnosis Personal history of malignant melanoma o f skin Family history of gene mutation Family history of pancreatic cancer Family history of malignant neoplasm of gastrointestinal tract Family history of prostate cancer Family history of malignant neoplasm of prostate documented in this encounter Care Teams Core Filer Relationship Specialty Start Date End Date Leeanne Schultz MD PCP - General 10/28/13 [address] [place] [address] documented as of this encounter
--- OUTSIDE RECORDS SUMMARY | 2022-02-06 11:47 | XMS_ITS | Encounter Summary ---
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 [phone] [place], [place] [address] (Wo rk) Social History Tobacco [...] is provided below. Please be advised that [place] law requires that all health care workers respect the confidentiality of thisinformation and not pass it along to other health care providers, insurance companies, or individuals without the written permission of the patient. The Familial Cancer Program welcomes any questions about these matters. Our phone number is: [phone]. 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 Following are the results of this test. 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 No other mutation was detected. The following 84 genes were evaluated for sequence changes and exonic deletions/duplications: AIP, ALK, APC, FRANK, AXIN2, BAP1, BARD1, BLM, BMPR1A, BRCA1, BRCA2, BRIP1, CASR, CDC73, CDH1, CDK4, CDKN1B, CDKN1C, CDKN2A (p14ARF), CDKN2A ([id number]), CEBPA, CHEK2, CTNNA1, DICER1, DIS3L2, EGFR, EPCAM(Deletion/duplication testing only), FH, FLCN, GATA2, GPC3, GREM1 (Promoter region deletion/duplication testing only), HOXB13, HRAS, KIT, MAX, MEN1, MET, MITF, (c.952G>A,P.Jkc555Jyn variant only), MLH1, MSH2, MSH3, MSH6, MUTYH, NBN, NF1, NF2, NTHL1, PALB2, PDGFRA, PHOX2B, PMS2, POLD1, POLE, POT1, KFUUT0H, PTCH1, PTEN, RAD50, RAD51C, RAD51D, RB1, RECQL4, RET, RUNX1, SDHA, SDHAF2, SDHB, SDHC, SDHD, SMAD4, SMARCA4, SMARCB1, SMARCE1, STK11, SUFU, TERC, TERT, NNUJ693, TP53, TSC1, TSC2, VHL, WRN, and WT1. A variant of uncertain significance (VUS) in the MUTYH gene, specifically c.326G>A ([id number]),was detected. Interpretation: FRANK: The most significant consequences [...] testing. Our scheduling secretarycan be reached at [phone]. Family members can also go to the [...] Difficulty with coordinating movements (ataxia) begin in scraper tender, usually before age 5. This condition is [...] the gene with no increased cancer risks. [employer] is continually collecting andanalyzing their data, in [...] and mailing address stay updated in the [facility] [employer] system, in order for us to reach [...] screening for this. When she returns from [place] Ivet could meet with Dr. Jacqueline Luo, information assurance engineer at [facility], to learn more about the options for screening and the potential benefits and limitations. Colon cancer screening ?? Periodic screening as recommended by Ivet's information assurance engineer or primary care provider. Skin cancer screening ?? Skin cancer screening and sun protection are important for everyone, regardless of genetic predisposition. ?? Dermatologic exams as recommended by Ivet's steam flattener. Support Ivet may find the online support organization called [employer]: Facing Our Risk of Cancer Empowered a helpful resource. This can be found at [employer].org ClinicalTrials.gov website will have the most up-to-date [...] For some, a consultation with a psychologist, social media manager, or psychiatrist may be helpful in dealing with feelings that may arise from genetic testing. If Ivet would like a referral, we can help to try to recommend a therapist who is familiar with issues surrounding genetic conditions. Follow-up We discussed the option of a follow-up appointment with the Familial Cancer Program, when Ivet returns from [place], for further discussion of this result. Follow-up can be done either in person or via telehealth. Ivet will contact us at [phone] if she decides she would like to schedule an appointment. As discussed above, Ivet may wish to meet with Dr. Jacqueline Luo for discussion about potentialscreening for pancreatic cancer. Her office can be reached at [phone]. documented in this encounter Plan of Treatment Upcoming Encounters Date Type Specialty Care Team Description 03/14/2022 Office Visit Dermatology [place] Edgar MD [facility] [address] DIANA CANAS-DERMAT [place], [place] [address] (Wo rk) documented as of this encounter Visit Diagnoses Not on filedocumented in this encounter Care Teams Medical Fee Clerk Relationship Specialty Start Date End Date Leeanne Schultz MD PCP - General 10/28/13 [address] [place] [address] documented as of this encounter
--- OUTSIDE RECORDS SUMMARY | 2022-02-06 11:47 | XMS_ITS | Continuity of Care Document ---
:1945 Author Organization [facility] Ambulatory Clinics Address [address] [place] [address] Care Team Providers Name Role Phone Leeanne Schultz Primary Care Physician Encounter [facility] NBR [id number] Date(s): 02/05/22 - 02/05/22 [facility] Ambulatory Clinics [address] [place], [place] [address] Encounter Diagnosis Trigger middle finger of right hand (Discharge Diagnosis) - 02/05/22 Discharge Disposition: Home or Self Care Attending Physician: Gilberto Gomes APRN Allergies, Adverse Reactions, Alerts Substance Reaction Severity Status shellfish hives / swollen throat Unknown Active Sinus Unknown Unknown Active Red Dye Unknown, suggested not to take as allergic to sh rimp Unknown Active Shrimp Hives, throat closes Unknown Active Functional Status 02/05/22 Family Member Travel History No recent travel Recent Travel History No recent travel Other exposure to Infectious Disease None Medications albuterol 90 mcg/inh aerosol inhaler 2 Unknown, 0 Refill(s) Start Date: 02/05/22 Status: Orderedalbuterol 90 mcg/inh aerosol inhaler 0 Refill(s) Start Date: 02/05/22 Status: OrderedamLODIPine 5 mg oral tablet 0.5 Unknown, 0 Refill(s) Start Date: 02/05/22 Status: Orderedamoxicillin 500 mg oral capsule BID, 1 Unknown, 0 Refill(s) Start Date: 02/05/22 Status: Orderedazelastine 137 mcg/inh (0.1%) nasal spray BID, 1 Unknown, 0 Refill(s) Start Date: 02/05/22 Status: OrderedbuPROPion 1 Unknown, 0 Refill(s) Start Date: 02/05/22 Status: OrderedbuPROPion 300 mg/24 hours (XL) oral tablet, extended release 1 Unknown, 0 Refill(s) Start Date: 02/05/22 Status: OrderedCeleBREX 100 mg oral capsule BID, 1 Unknown, 0 Refill(s) Start Date: 02/05/22 Status: OrderedCeleXA 20 mg oral tablet 1 Unknown, 0 Refill(s) Start Date: 02/05/22 Status: Orderedcitalopram 40 mg oral tablet 0.5 Unknown, 0 Refill(s) Start Date: 02/05/22 Status: OrderedclonazePAM 1 mg oral tablet 1 Unknown, 0 Refill(s) Start Date: 02/05/22 Status: OrderedHome Nebulizer Supply, See instructions, # 1 EA, 0 Refill(s) Start Date: 02/05/22 Status: Orderedlevothyroxine 137 mcg (0.137 mg) oral tablet 0 Refill(s) Start Date: 02/05/22 Status: Orderedlevothyroxine 150 mcg (0.15 mg) oral tablet 0 Refill(s) Start Date: 02/05/22 Status: OrderedProtonix 40 mg oral delayed release tablet 1 Unknown, 0 Refill(s) Start Date: 02/05/22 Status: OrderedSymbicort 160 mcg-4.5 mcg/inh inhalation aerosol 0 Refill(s) Start Date: 02/05/22 Status: OrderedSynthroid 137 mcg (0.137 mg) oral tablet 0 Refill(s) Start Date: 02/05/22 Status: OrderedVentolin HFA 1 Unknown, 0 Refill(s) Start Date: 02/05/22 Status: OrderedWellbutrin SR 150 mg/12 hours oral tablet, extended release 1 Unknown, 0 Refill(s) Start Date: 02/05/22 Status: OrderedWellbutrin XL 300 mg/24 hours oral tablet, extended release 1 Unknown, 0 Refill(s) Start Date: 02/05/22 Status: Orderedzolpidem 10 mg oral tablet 0 Refill(s) Start Date: 02/05/22 Status: Ordered Problem List Condition Confirmation Course Effective Dates Status Health I nformant Status Acute effect of Confirmed Active ultraviolet radiation on normal skin Allergic rhinitis due Confirmed Active to animal hair and dander Allergic rhinitis due Confirmed Active to pollen Cellulitis of face Confirmed Active Chronic bronchitis Confirmed Active Chronic ethmoidal Confirmed Active sinusitis 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 Chronic pain Confirmed Active 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 Cough Confirmed Active Deviated nasal septum Confirmed Active Disorder of shoulder Confirmed Active Dysphagia Confirmed Active History of operative Confirmed Active procedure on knee Hypertrophy of nasal Confirmed Active turbinates Impacted cerumen in Confirmed Active left ear Impacted cerumen of Confirmed Active bilateral ears Irritable bowel Confirmed Active syndrome Keratosis Confirmed Active Leukoplakia of oral Confirmed Active mucosa Osteoarthritis of hip Confirmed Active Osteoarthritis of Confirmed Active right hip joint Plantar fasciitis Confirmed Active Posterior rhinorrhea Confirmed Active Sensorineural hearing Confirmed Active loss, bilateral Sinusitis Confirmed Active Trigger middle finger Confirmed Active of right hand Wheezing Confirmed Active Vital Signs Most recent to oldest [Reference Range]: 1 Peripheral Pulse Rate [60-100 bpm] 80 bpm (02/05/22 11:14 AM) Blood Pressure [90-140/60-90 mmHg] 128/78 mmHg (02/05/22 11:14 AM) Weight 63.05 kg (02/05/22 11:14 AM) Weight Measured (lbs) 139.001 lb (02/05/22 11:14 AM) Height 172.72 cm (02/05/22 11:14 AM) Height/Length Measured (inches) 68 inch (02/05/22 11:14 AM) BSA Measured 1.74 m2 (02/05/22 11:14 AM) Body Mass Index 21.13 kg/m2 (02/05/22 11:14 AM) Social History Social History Type Response Tobacco Never tobacco user Tobacco U se:. Sex Patient Care team information PersonnelName: Leeanne Schultz Address: Address: [id number] [place] [address]
--- OUTSIDE RECORDS SUMMARY | 2022-02-06 11:47 | XMS_ITS | Encounter Summary ---
:1945 Author Organization [facility] [place] [address] Care Team Providers Name Role Phone Leeanne Schultz MD Primary Care Provider Encounter Details Date Type Department Care Team Description 03/16/2021 Notes Only Hematology and Oncology at Bryan Luna MD [facility] Kwasi fernández HEMATOLOGY/[place] [address] [place] [address] [phone] (Wo rk) Social History Tobacco Use Types [...] 03/14/2022 Office Visit Dermatology [place] Edgar MD [facility] [address] [place], [place] [address] (Wo rk) documented as of this encounter Visit Diagnoses Not on filedocumented in this encounter Care Teams Inspector Semiconductor Wafer Relationship Specialty Start Date End Date Leeanne Schultz MD PCP - General 10/28/13 [address] [place] [address] documented as of this encounter
--- OUTSIDE RECORDS SUMMARY | 2022-02-06 11:47 | XMS_ITS | Encounter Summary ---
:1945 Author Organization [facility] [place] [address] Care Team Providers Name Role Phone Leeanne Schultz MD Primary Care Provider Reason for Visit Reason Comments Skin Lesion Encounter Details Date Type Department Care Team Description 10/18/2021 Office Visit Dermatology at Molly Mercado urgical wound Geneva Ryan MD present [address] [place] [address] [address] [phone] [facility] [place], [place] [address] Social History Tobacco Use Types [...] Exposure & Protection She grew up in [place] with a [...] FSE with Dr. Edgar []Note routed to parachute panel joiner []Recall placed in scheduling system []Appointment scheduled at checkout Scribe attestation: Janett Hoffman CMA has performed the documentation for this encounter in the presence of and acting as a scribe for Molly Tucker MD. I performed the above scribed service and agree with the accuracy of the documentation in this encounter. Reviewed and signed by: Molly Tucker MD Dermatology [facility] Staff machine wedger: Mone Yen MD Dermatology [facility] Mone Yen MD - 10/18/2021 1:40 PM EDT I was the supervising physician working with Dermatology Resident in the dermatology clinic during this patient visit. The level of Resident supervision for this patient visit was indirect supervision with direct supervision immediately available. (definition: [facility] Policy Statement on Graduate Medi [facility] Education, Supervision of Graduate Medical Trainees) I was immediately available to the Dermatology Resident for questions and discussion regarding this visit. I have reviewed the encounter note details. MONE YEN MD Staff Physician documented in this encounter Plan of Treatment Upcoming Encounters Date Type Specialty Care Team Description 03/14/2022 Office Visit Dermatology [place] Edgar MD [facility] [address]NAS[address]DERMAT [place], [place] [address] (Wo rk) documented as of this encounter Visit Diagnoses Diagnosis Surgical wound present documented in this encounter Care Teams Asset Protection Associate Relationship Specialty Start Date End Date Leeanne Schultz MD PCP - General 10/28/13 [address] [place] [address] documented as of this encounter
--- OUTSIDE RECORDS SUMMARY | 2022-02-06 11:47 | XMS_ITS | Encounter Summary ---
:1945 Author Organization [facility] [place] [address] Care Team Providers Name Role Phone Leeanne Schultz MD Primary Care Provider Reason for Visit Reason Comments Skin Lesion Encounter Details Date Type Department Care Team Description 12/11/2021 Office Visit Dermatology at [facility] Jose Miller MD [facility] [place] [address] Seborrheic keratoses; [facility] RN Periorificial dermatitis [address] [place] [address] Social History Tobacco Use Types Packs/Day Years Used Date Former Smoker Smokeless Tobacco: Never Used Alcohol Use Standard Drinks/Week Comments Yes 7 (1 standard drink = 0.6 oz pure alcoho l) Sex Assigned at Date Recorded Female 10/02/2020 6:58 PM EDT documented as of this encounter Progress Notes Fidel Miller MD - 12/11/2021 2:30 PM EDT Images from the original note were not included. DEPARTMENT OF DERMATOLOGY Medical Dermatology Clinic Provider: Fidel Miller MD FAAD at Dermatology at [facility] Patient's preferred name Ivet Preferred contact method for results []Phone: with detailed results? []Yes []No []myD-H []Letter PAST MEDICAL HISTORY (if blank, patient denies history) Melanoma Left lateral cheek. Melanoma 1.24mm s/p excision and neg SLN 1999 Left back, MIS s/p treatment 2007 Right lateral thigh? Left upper arm, MIS s/p excision 2014 Right forearm, MIS s/p excision 2014 Left lateral arm, Melanoma 0.25mm s/p excision Nov 2014 Dysplastic nevi Left upper inner arm Right lower back Right lower back, mild to moderate Right buttock SCC Right mid medial alex, Invasive SCC, s/p ED&C September 2021 Right lateral calf, SCCis s/p ED&C Apr 2018 BCC Left leg BCC, 10/1999 (outside path) Right shoulder BCC, 04/2000 (outside path) Left arm, BCC, 10/2000 (outside path) Left upper chest, BCC, 11/2001 (outside path) Left mid back, BCC s/p excision [place] [x] cryotherapy [] efudex [] PDT [] Other Relevant Medications [] Immunosuppression [] Transplant [] Oncogenic medication [] Nicotinamide 500mg po bid Eczema Other relevant history Periorificial Dermatitis - metrogel FAMILY HISTORY (if blank, patient denies history) Melanoma [facility] Other relevant history Pancreatic Cancer - Mother SOCIAL HISTORY Occupation: Retired History of Present Illness: Leeanne Bush is 76 y.o. and here for the following: ??? Spot on the left knee that has been there for about 4 months, asymptomatic. Never been treated or biopsied. ??? Spot on the right chin that has been there for about 3 weeks, asymptomatic. Patient has tried the metrogel on this spot but it has not helped. Medications: Reviewed in eD-H Allergies: Reviewed in eD-H Skin Examination Standby: Minna Armendariz RN Well developed, well-nourished in no apparent distress, alert and oriented to time, person, place and situation. Focused examination of the skin of the face and left thigh significant for the following: Exam Findings/Assessment/Plan Seborrheic Keratoses Scattered, stuck-on, well-demarcated, callahan or brown, waxy or warty papules c/w SKs on the left thigh. Benign. No treatment necessary. Counseled: SKs, benign, treatment options for symptomatic lesions. Answered all questions. Handout given. Periorificial Dermatitis Cutter to red follicular papules on the chin DDx: Periorificial dermatitis Recommend trial of Keflex. Counseled: periorificial dermatitis, a/w viariant of rosacea, poorly understood etiology but can be a/w topical steroids, cosmetics, skin bacteria. Complications include cosmesis, granulomas, and telangectasia. Discussed likely recurrent course but easily treated over several weeks with topical therapies - topical antibiotics/antibacterials, elidel, azeleic acid - and oral antibiotics. Discussed major side effects of oral antibiotics including but not limited to drug rash, blistering drug rash, photosensitivity, gastrointestinal upset including vomiting or diarrhea. Preventing recurrence by avoiding topical steroids and occlusive cosmetics/sunscreens on the face. Answered all questions. Handout given. Patient elects Keflex. ??? Start Keflex 500mg po twice daily for 14 days. Handout from [employer] given to the patient. Follow-up: March 14 2022 for FSE. Return sooner as needed for suspicious lesion, new or worsening dermatitis. [] Recall placed [] Forwarded to housing court judge [] Patient scheduled before exiting Scribe attestation: Minna Armendariz, RN has performed the documentation for this encounter in the presence of and acting as a scribe for MD PARKER Garcia. I performed the above scribed service and agree with the accuracy of the documentation in this encounter. Reviewed and signed by: Fidel Miller MD FAAD Dermatology [facility] documented in this encounter Plan of Treatment Upcoming Encounters Date Type Specialty Care Team Description 03/14/2022 Office Visit Dermatology [place] Edgar MD [facility] [address] DIANA CANAS-DERMAT [place], [place] [address] (Wo rk) documented as of this encounter Visit Diagnoses Diagnosis Seborrheic keratoses Periorificial dermatitis documented in this encounter Care Teams Pumper Brewery Relationship Specialty Start Date End Date Leeanne Schultz MD PCP - General 10/28/13 [address] [place] [address] documented as of this encounter
--- OUTSIDE RECORDS SUMMARY | 2022-02-06 11:47 | XMS_ITS | Encounter Summary ---
:1945 [place] [address] Care Team Providers Name Role Phone Leeanne Schultz MD Primary Care Provider Encounter Details Date Type Department Care Team Description 03/21/2021 Office Visit Dermatology at [facility] Berlin Edgar A K (actinic keratosis); [place] PETER Neoplasm of uncertain behavior of skin; [address] [facility] Skin cancer screening; [place] [address] Multiple benign melanocytic nevi of uppe r and lower extremities and trunk; [phone] [facility] Seborrheic shavonne toses; RD-DERMATOLOGY Lentigines; [place], [place] [address] History of melanoma Social History Tobacco Use Types Packs/Day Years Used Date Former Smoker Smokeless Tobacco: Never Used Alcohol Use Standard Drinks/Week Comments Yes 7 (1 standard drink = 0.6 oz pure alcoho l) Sex Assigned at Date Recorded Female 10/02/2020 6:58 PM EDT documented as of this encounter Progress Notes Berlin Edgar MD - 03/21/2021 10:00 AM EST Images from the original note were not included. DEPARTMENT OF DERMATOLOGY Medical Dermatology Clinic Provider: Berlin Edgar MD Patient's preferred name Ivet Preferred contact method for results []? myDH []? Letter [x]? Phone: Detailed phone message OK? yes ?? PAST MEDICAL HISTORY Y/N Date, location, treatment Melanoma y Melanoma.left lateral cheek in 08/1999, with negative SLNB. The Breslow depth was 1.24 mm. 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 ? August 2007, MIS treated in [place] ? Right lateral thigh. 07/17/2014,??MIS, left upper [...] bed use y She grew up in [place] with a history of extensive sun exposure. Other relevant past medical history (i.e. eczema, psoriasis, birthmarks, immunosuppression) y Knee replacement ??- October 2017 Perioral dermatitis ? FAMILY HISTORY Y/N If yes, details Melanoma y 2 brothers NMSC n ?? Other relevant family history y Pancreatic cancer - Mother SOCIAL HISTORY Retired Diagnosis or treatment significantly limited by social determinants of health? No History of Present Illness: Leeanne Bush is a 75 y.o. Patient returns to clinic today for six month skin exam. Patient denies any specific skin concerns today; no lesions that are new, changing or symptomatic. Last visit at Dermatology: 10/06/2020 Last visit with this provider: 10/06/2020 Medications: Reviewed in eD-H Allergies: Reviewed in eD-H Skin Examination: Full skin examination: Patient asked to undress to their comfort level. Verbalized that the provider's preference is that patient remove all clothing and that the provider will not examine areas patient elects to keep covered. Examination of the scalp, hair, head, face, ears, neck, chest, axillae, abdomen, back, buttocks, and upper and lower extremities was normal with the exception of the findings below. Genitalia not examined. Assessment/Plan #. History of Melanoma - Well-healed scars per skin history. - No evidence of recurrence; will continue to monitor. #. History of DN - Well-healed scars per skin history. - No evidence of recurrence; will continue to monitor. #. History of BCC - Well-healed scars per skin history. - No evidence of recurrence; will continue to monitor. #. History of SCC - Well-healed scars per skin history. - No evidence of recurrence; will continue to monitor. #. Seborrheic Keratoses - Stuck on, waxy papules on the trunk and extremities. - Discussed benign nature of lesions and provided reassurance. No treatment necessary at this time. #. Benign Nevi - Scattered medium brown, evenly pigmented macules and papules on the trunk and extremities with reassuring pigment pattern on dermoscopy. - Discussed benign nature of lesions and provided reassurance. Will continue to monitor. #. Lentigines - Scattered light-brown, evenly pigmented, well-demarcated macules on sun-exposed areas of the trunk and extremities. - No worrisome pigmented lesions. Discussed benign nature of lesions and provided reassurance. Will continue to monitor. #. DDX: Lichenoid Keratosis R/O atypia- 4 mm light brown to molina asymmetric macule with question signs of regression on the right eyebrow Procedure Shave Biopsy Discussed with patient diagnostic options, including the risks and benefits of observation, empiric treatment, and biopsy, including but not limited to recurrence, cosmesis (scar, dyspigmentation, scarspread,keloid), pain, keloid/hypertrophic scar, bleeding, infection. Patient verbally understands and elects biopsy. -Time Out Performed: Full Name, , and site(s) confirmed with patient -Site was prepped in sterile fashion with Alcohol. Anesthesia with 1% lidocaine + 1:100,0000 epinephrine. Lesion biopsied with shave technique using raul blade. -Hemostasis achieved with Drysol. <1ml blood loss. No complications. Specimen(s): Placed in formalin and sent to Pathology for histologic examination. Post-op care: Vaseline, Pressure Dressing #. Actinic Keratoses - Ill-defined gritty papules on the left cheek x1, right cheek x1, and foreheadx3. - Explained premalignant potential of these lesions. - Discussed treatment with cryotherapy. Patient elects to proceed with cryotherapy today. - Instructed patient to return to clinic for re-evaluation if lesion(s) does not resolve as expectedwith this treatment. Procedure: Destruction of lesion(s) with cryotherapy (LN2). Location(s): As noted above. Number: 5 Discussed procedure and expectations, including risks and benefits. Verbal consent obtained. Treatedwith LN2. There were no complications; Patient tolerated the procedure well. Post-procedure expectations and wound care reviewed. Figure 1 Other: ??? N/A RTC: Pending Pathology []Note routed to elementary secretary []Recall placed in scheduling system []Appointment scheduled at checkout Scribe attestation: DULCE Nick has performed the documentation for this encounter in the presence of and acting as a scribe for Berlin Edgar MD. I performed the above scribed service and agree with the accuracy of the documentation in this encounter. Reviewed and signed by: Berlin Edgar MD Dermatology [facility] Berlin Edgar MD - 03/21/2021 10:00 AM EST Biopsy consistent with Pigmented Actinic Keratosis(AK) -a precancerous lesion that was removed with shave removal at recent visit - no further treatment required at present Seen and reviewed by: Berlin Edgar MD Staff Switchboard Wire Worker Helper Department of Dermatology documented in this encounter Miscellaneous Notes Addendum Note - Renetta Whyte CCMA - 03/21/2021 10:00 AM EST Addended by: RENETTA WHYTE on: 03/21/2021 03:55 PM Modules accepted: Orders documented in this encounter Plan of Treatment Upcoming Encounters Date Type Specialty Care Team Description 03/14/2022 Office Visit Dermatology Berlin Edgar MD [facility] DR DIANA CANAS-DERMAT [place] [id number] (Wo rk) documented as of this encounter Procedures Procedure Name Priority Date/Time Associated Diagnosis Comme nts SPECIMEN TO Routine 03/21/2021 3:55 PM Neoplasm of Results f or this PATHOLOGY EST uncertain behavior procedure are in of skin the results section. SURGICAL PATHOLOGY Routine 03/21/2021 3:54 PM Res ults for this REPORT EST procedure are i n the results section. documented in this encounter Results Specimen to Pathology (03/21/2021 3:55 PM EST) Specimen Anatomical Collection Method Collection Time Receive d Time (Source) Location / / Volume Laterality AP Specimen 03/21/2021 3:55 PM 3:55 EST PM EST Narrative [facility] - 03/21/2021 3:55 PM EST Specimen requisition ordered. ??Separate Pathology report to follow Berlin Edgar MD PATHOLOGY/CYTOLOGY ORDERABLE S Performing Organization Address City/State/[place] [address] Surgical Pathology Report (03/21/2021 3:54 PM EST) Component Value Ref Test Analysis Performed At [facility] Range Method Time Signature Surgical [id number] ? Location: [facility] Report The signing pathologist has (i) examined the relevant preparation(s) for the [facility] specimen(s) and (ii) rendered or confirmed the diagnosis(es) . HOSPITAL LABORATORY . ?Surgic al Pathology DIAGNOSIS Right eyebrow, skin shave removal: - Pigmented ??actinic keratosis Electronically signed by: ?Herb PETER, PhD, Samir Verified: ??03/29/2021 11:15 ??Dermatopathologist Performed at: ??-[facility] Dept. of Pathology, [place], [place] SPECIMEN(S) SUBMITTED A - Right eyebrow, skin shave removal (1) CLINICAL INFORMATION 4 mm light brown to davidson asy mmetric macule with questions signs of regression on the right eyebrow; DDX: Lichenoid keratosis R/O atypia SPECIMEN PROCESSING A - Labeled/Fixative: R eyebrow, formalin. Quantity/Size: ??Single, 0.5 x 0.5 x 0.1 cm. Tissue Description: Shave of [id number], mottled skin. Sections/Processing: Inked, bisected and entirely submitted in 1 cassette labeled A1. ??noe Specimen (Source) Anatomical Collection Method Collection Time Re ceived Time Location / / Volume Laterality 03/21/2021 3:54 PM EST Berlin Edgar MD PATHOLOGY/CYTOLOGY ORDERABLE S Performing Organization Address City/State/ZIP [place] [address] documented in this encounter Visit Diagnoses Diagnosis AK (actinic keratosis) Actinic keratosis Neoplasm of uncertain behavior of skin Skin cancer screening Screening for malignant neoplasm of the skin Multiple benign melanocytic nevi of uppe r and lower extremities and trunk Seborrheic keratoses Lentigines Other dyschromia History of melanoma Personal history of malignant melanoma o f skin documented in this encounter Care Teams Learning Support Aide Relationship Specialty Start Date End Date Leeanne Schultz MD PCP - General 10/28/13 [address] [place] [address] documented as of this encounter
--- OUTSIDE RECORDS SUMMARY | 2022-02-06 11:48 | XMS_ITS | Encounter Summary ---
:1945 Author Organization [facility] [place] [address] Care Team Providers Name Role Phone Leeanne Schultz MD Primary Care Provider Reason for Visit Reason Comments Advice Only Encounter Details Date Type Department Care Team Description 11/21/2018 Office Visit Dermatology at Jan Page MD [facility] DR DIANA CANAS[place] [address] Encounter for Kiko Barrera Lexie, CCMA cosmetic procedure [address] [place] [address] Social History Tobacco Use Types Packs/Day Years Used Date Former Smoker Smokeless Tobacco: Never Used Alcohol Use Standard Drinks/Week Comments Yes 7 (1 standard drink = 0.6 oz pure alcoho l) Sex Assigned at Date Recorded Female 10/02/2020 6:58 PM EDT documented as of this encounter Progress Notes Kiko Figueroa - 11/21/2018 10:30 AM EDT DERMATOLOGY TOOL/DIE MAKER NOTE Date of service: 11/21/2018 Leeanne Bush [...] regimen: regimen or products: Mild Gel Cleanser, Swedish, Vashe toner, Cotz reviewed by:DW date: 11/21/2018 -instructions in AVS dated 11/21/2018 -discussed importance of meticulous sun protection # Photography: NEEDS PHOTOS Patient charged today: no charge FOLLOW UP WHEN: Fall 2018 FOR WHAT: skin care f/u LENGTH OF VISIT: 30 min NUMBING?: no PICTURES NEEDED? yes COST: no charge NOTES: Kiko Figueroa General Clerk documented in this encounter Plan of Treatment Upcoming Encounters Date Type Specialty Care Team Description 03/14/2022 Office Visit Dermatology [place] Edgar MD [facility] DR DIANA CANAS-DERMAT [place], [place] [address] (Wo rk) documented as of this encounter Visit Diagnoses Diagnosis Encounter for cosmetic procedure documented in this encounter Care Teams Permastone Mechanic Relationship Specialty Start Date End Date Leeanne Schultz MD PCP - General 10/28/13 [address] [place] [address] documented as of this encounter
--- OUTSIDE RECORDS SUMMARY | 2022-02-06 11:48 | XMS_ITS | Encounter Summary ---
:1945 Author Organization [facility] [place] [address] Care Team Providers Name Role Phone Leeanne Schultz MD Primary Care Provider Encounter Details Date Type Department Care Team Description 06/13/2020 Refill Dermatology at [facility] Angelita Burleson MD [address] [facility] [place] [address] [facility]-DERMATOLOGY [phone] [place], [place] [address] (Wo rk) Social History Tobacco [...] she would like her Retin-a sent to [facility] in [facility]. Please call patient with any concerns [phone] documented in this encounter Plan of Treatment Upcoming Encounters Date Type Specialty Care Team Description 03/14/2022 Office Visit Dermatology [place] Edgar MD [facility] [address] DIANA CANAS-DERMAT [place], [place] [address] (Wo rk) documented as of this encounter Visit Diagnoses Not on filedocumented in this encounter Care Teams Hair Dryer Relationship Specialty Start Date End Date Leeanne Schultz MD PCP - General 10/28/13 [address] [place] [address] documented as of this encounter
--- OUTSIDE RECORDS SUMMARY | 2022-02-06 11:48 | XMS_ITS | Encounter Summary ---
:1945 Author Organization [facility] [place] [address] Care Team Providers Name Role Phone Leeanne Schultz MD Primary Care Provider Encounter Details Date Type Department Care Team Description 10/03/2018 Refill Dermatology at [facility] Cm Corbett III, MD [address] [place] [address] [facility]-DERMATOLGY [phone] [place], [place] [address] (Wo rk) Social History Tobacco [...] seeing Dr. Burleson. Please send script to [facility] [place], [place]. Patient can be reached at [phone] with any questions or concerns. documented in this encounter Plan of Treatment Upcoming Encounters Date Type Specialty Care Team Description 03/14/2022 Office Visit Dermatology [place] Edgar MD [facility] [address] DIANA CANAS-DERMAT [place], [place] [address] (Wo rk) documented as of this encounter Visit Diagnoses Not on filedocumented in this encounter Care Teams Inventory Control Coordinator Relationship Specialty Start Date End Date Leeanne Schultz MD PCP - General 10/28/13 [address] [place] [address] documented as of this encounter
--- OUTSIDE RECORDS SUMMARY | 2022-02-06 11:48 | XMS_ITS | Encounter Summary ---
:1945 Author Organization [place] [address] Care Team Providers Name Role Phone Leeanne Schultz MD Primary Care Provider Encounter Details Date Type Department Care Team Description 09/22/2020 [facility] E IC (epidermal Road inclusion cyst) [address] [place] [address] [facility]-DERMATOLOGY [place], [place] [address] Social History Tobacco Use Types [...] treated in [place] ? Right lateral thigh. 07/17/2014,??MIS, left upper [...] bed use y She grew up in [place] with a history of extensive sun exposure. [...] - Patient opted to proceed with excision. [place] will schedule patient for next available surgical [...] and signed by: Berlin Edgar MD Dermatology [facility] documented in this encounter Plan of Treatment Upcoming Encounters Date Type Specialty Care Team Description 03/14/2022 Office Visit Dermatology [place] Edgar MD [facility] ER DR DIANA CANAS-DERMAT [place], [place] [address] (Wo rk) documented as of this encounter Visit Diagnoses Diagnosis EIC (epidermal inclusion cyst) Sebaceous cyst documented in this encounter Care Teams Semiconductor Dies Loader Relationship Specialty Start Date End Date Leeanne Schultz MD PCP - General 10/28/13 [address] [place] [address] documented as of this encounter
--- OUTSIDE RECORDS SUMMARY | 2022-02-06 11:48 | XMS_ITS | Encounter Summary ---
:1945 Author Organization [facility] [place] [address] Care Team Providers Name Role Phone Leeanne Schultz MD Primary Care Provider Reason for Visit Reason Comments Skin Lesion hx of Melanoma Encounter Details Date Type Department Care Team Description 04/14/2018 Office Visit Dermatology at [facility] Veronica Souza oplasm of [facility], [place] behavior of skin [address] [place] [address] [facility]-DERMATOLOGY [place], [place] [address] Social History Tobacco Use Types [...] until the wound is healed Please call [phone] if you have questions or concerns. * [...] back. ? August 2007, MIS treated in [place] ? Right lateral thigh. 6. 10/2006 Right lower back, mild to moderate DN , Excised 7. She grew up in [place] with a history of extensive sun exposure. [...] Esmer Souza) and documented with patient consent. [facility] [id number] RTC: Pending pathology and as schedule with [...] Reviewed and signed by Veronica Souza PA-C [facility] Patient seen in conjunction with staff licensed direct entry midwife: Meek Ramirez MD Section of Dermatology [facility] Meek Ramirez MD - 04/14/2018 4:00 PM EST Patient seen in conjunction with Veronica Souza PA-C ([place]ri) Spot check R leg, hx of numerous skin cancers, scaly tender spot on leg. SCC vs. SCCis - plan on biopsy today. Signed by: MEEK RAMIREZ MD Section of Dermatology [facility] Janice Reyez - 04/14/2018 4:00 PM EST No answer or voicemail so sent reminder letter to call for appointment. documented in this encounter Plan of Treatment Upcoming Encounters Date Type Specialty Care Team Description 03/14/2022 Office Visit Dermatology [place] Edgar MD [facility] ER DR DIANA CANAS-DERMAT [place], [place] [address] (Wo rk) documented as of [...] PM 8 EST 10:00 AM EST Narrative [facility] - 04/15/2018 10:00 AM EST Specimen requisition ordered. ??Separate Pathology report to follow Resulting Agency Comment Spec In Lab Meek Ramirez MD PATHOLOGY/CYTOLOGY ORDERABLE S Performing Organization Address City/State/ZIP [place] [address] Surgical Pathology Report (04/14/2018 4:58 PM EST) Component Value Ref Test Analysis Performed At [facility] gist Range Method Time Signature Surgical [id number] ? Location: [facility] Report The signing pathologist has (i) examined the relevant preparation(s) for the [facility] specimen(s) and (ii) rendered or confirmed the diagnosis(es) . HOSPITAL LABORATORY . 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 of Pathology, [place], [place] CLINICAL INFORMATION Specimen Submitted: A - [...] Organization Address City/State/[place] [address] documented in this encounter Visit Diagnoses Diagnosis Neoplasm of uncertain behavior of skin documented in this encounter Care Teams Associate Media Planner Relationship Specialty Start Date End Date Leeanne Schultz MD PCP - General 10/28/13 [address] [place] [address] documented as of this encounter
--- OUTSIDE RECORDS SUMMARY | 2022-02-06 11:48 | XMS_ITS | Encounter Summary ---
:1945 Author Organization [facility] [place] [place] [address] Care Team Providers Name Role Phone Leeanne Schultz MD Primary Care Provider Reason for Visit Reason Comments Procedure Encounter Details Date Type Department Care Team Description 12/23/2019 [facility] [place] [facility]actinic Road MD keratosis) [address] [place] [address] DR [phone] [facility] [place], [place] [address] Social History Tobacco Use Types [...] back. ? August 2007, MIS treated in [place] ? Right lateral thigh. 6. 10/2006 Right lower back, mild to moderate DN , Excised 7. She grew up in [place] with [...] last seen on 09/25/2018 ?? Preferred pharmacy: [address] ?? Procedure Screening Questions: Allergy to [...] of andacting as a scribe for Janett Panchal MD. I performed the services which were documented by the scribe, and I agree with the accuracy of the documentation in this encounter. Janett Panchal MD Reviewed and signed by: Janett Panchal MD Resident in Dermatology [facility] Patient seen and evaluated with staff corrugator supervisor: Rosina Banks MD Department of Dermatology [facility] Rosina Banks MD - 12/23/2019 9:30 [...] Visit Dermatology [place] Edgar MD [facility] ER DR DIANA CANAS-DERMAT [place], [place] [address] (Wo rk) documented as of this encounter Visit Diagnoses Diagnosis AK (actinic keratosis) Actinic keratosis documented in this encounter Care Teams Wood Room Hand Relationship Specialty Start Date End Date Leeanne Schultz MD PCP - General 10/28/13 [address] [place] [address] documented as of this encounter
--- OUTSIDE RECORDS SUMMARY | 2022-02-06 11:48 | XMS_ITS | Encounter Summary ---
:1945 Author Organization [facility] Address [address] [place] [address] Care Team Providers Name Role Phone Leeanne Schultz MD Primary Care Provider Encounter Details Date Type Department Care Team Description 09/25/2018 Office Visit Dermatology at Cm Aguirre; [place] FONSECA MD Multiple benign nevi; [address] [facility] EIC (epidermal inclusion cys t); [place] [address] DR History of basal cell carcinoma; [phone] [facility] History of anson noma; RD-DERMATOLGY History of melanoma in situ; [place], [place] [address] Skin exam for malignant neoplasm; [phone] Sun-damaged ski n (Work) Social History Tobacco Use Types Packs/Day Years Used Date Former Smoker Smokeless Tobacco: Never Used Alcohol Use Standard Drinks/Week Comments Yes 7 (1 standard drink = 0.6 oz pure alcoho l) Sex Assigned at Date Recorded Female 10/02/2020 6:58 PM EDT documented as of this encounter Progress Notes Tegan Kenny - 09/25/2018 9:45 AM EDT DERMATOLOGY ESTABLISHED [...] back. ? August 2007, MIS treated in [place] ? Right lateral thigh. 6. 10/2006 Right lower back, mild to moderate DN , Excised 7. She grew up in [place] with a history of extensive sun exposure. [...] encounter. Cm Kaminski MD Section of Dermatology [facility] documented in this encounter Plan of Treatment Upcoming Encounters Date Type Specialty Care Team Description 03/14/2022 Office Visit Dermatology [place] Edgar MD [facility] DR DIANA CANAS-DERMAT [place], [place] [address] (Wo rk) documented as of [...] diation documented in this encounter Care Teams Amusement Park Ride Mechanic Relationship Specialty Start Date End Date Leeanne Schultz MD PCP - General 10/28/13 [address] [place] [address] documented as of this encounter
--- OUTSIDE RECORDS SUMMARY | 2022-02-06 11:48 | XMS_ITS | Encounter Summary ---
:1945 Author Organization [facility] [place] [address] Care Team Providers Name Role Phone Leeanne Schultz MD Primary Care Provider Encounter Details Date Type Department Care Team Description 12/16/2018 Notes Only Dermatology at [facility] Brigitte Angeles MD [address] [facility] [place] [address] [facility] [phone] [place] [address] (Wo rk) Social History Tobacco Use Types [...] Note Leeanne Bush : 1945 Next Scheduled [facility] appt with Dr. Ramirez: 01/01/2019 Relevant Medical [...] left lateral alex, pigmented AK, s/p biopsy On Call Cm Kaminski MD Procedure Screening Questions: Yes/No [...] Office Visit Dermatology [place] Edgar MD [facility] DR DIANA CANAS-DERMAT [place], [place] [address] (Wo rk) documented as of this encounter Visit Diagnoses Not on filedocumented in this encounter Care Teams Shift Stacker Relationship Specialty Start Date End Date Leeanne Schultz MD PCP - General 10/28/13 [address] [place] [address] documented as of this encounter
--- OUTSIDE RECORDS SUMMARY | 2022-02-06 11:48 | XMS_ITS | Encounter Summary ---
:1945 Author Organization [facility] [place] [address] Care Team Providers Name Role Phone Leeanne Schultz MD Primary Care Provider Reason for Visit Reason Comments Procedure Encounter Details Date Type Department Care Team Description 04/24/2018 Office Visit Dermatology at Arnold Donohue MD [facility] [address] [place] [address] Veronica Souza PA [facility] [address] [place] [address] carcinoma in situ [address] (SCCIS) [place] [address] Social History Tobacco Use Types Packs/Day [...] or concerns, please call the office at [phone]. If it is after 5PM, or a holiday or weekend, please call [phone] and ask for the Metal Fitter on-call. documented in this encounter Progress Notes [...] back. ? August 2007, MIS treated in [place] ? Right lateral thigh. 6. 10/2006 Right [...] (including discomfort management) and wound care reviewed. [facility] [address] RTC: As scheduled with Dr. Kaminski for [...] Reviewed and signed by Veronica Souza PA-C [facility] Patient seen in conjunction with staff rotary shear operator: Blanca Cabral MD Section of Dermatology [facility] documented in this encounter Plan of Treatment Upcoming Encounters Date Type Specialty Care Team Description 03/14/2022 Office Visit Dermatology [place] Edgar MD [facility] DR DIANA CANAS-DERMAT [place], [place] [address] (Wo rk) documented as of this encounter Visit Diagnoses Diagnosis Squamous cell carcinoma in situ (SCCIS) documented in this encounter Care Teams Baling Machine Operator Relationship Specialty Start Date End Date Leeanne Schultz MD PCP - General 10/28/13 [address] [place] [address] documented as of this encounter
--- OUTSIDE RECORDS SUMMARY | 2022-02-06 11:48 | XMS_ITS | Encounter Summary ---
:1945 Author Organization [facility] [place] [address] Care Team Providers Name Role Phone Leeanne Schultz MD Primary Care Provider Encounter Details Date Type Department Care Team Description 10/04/2020 Clinical Support Dermatology at [place] Redman (epidermal Road MD Natalia inclusion cyst) [address] [facility] [address] [facility] [phone] [place] [address] Social History Tobacco Use Types Packs/Day Years Used Date Former Smoker Smokeless Tobacco: Never Used Alcohol Use Standard Drinks/Week Comments Yes 7 (1 standard drink = 0.6 oz pure alcoho l) Sex Assigned at Date Recorded Female 10/02/2020 6:58 PM EDT documented as of this encounter Progress Notes Juan Alberto-Miguel Angel Farrell, BAKERY CLERK - 10/04/2020 7:30 AM EDT Pre [...] Visit Dermatology [place] Edgar MD [facility] ER DR DIANA CANAS-DERMAT [place], [place] [address] (Wo rk) documented as of this encounter Visit Diagnoses Diagnosis EIC (epidermal inclusion cyst) Sebaceous cyst documented in this encounter Care Teams Tab Builder Relationship Specialty Start Date End Date Leeanne Schultz MD PCP - General 10/28/13 [address] [place] [address] documented as of this encounter
--- OUTSIDE RECORDS SUMMARY | 2022-02-06 11:48 | XMS_ITS | Encounter Summary ---
:1945 Author Organization [facility] [place] [address] Care Team Providers Name Role Phone Leeanne Scuhltz MD Primary Care Provider Encounter Details Date Type Department Care Team Description 11/12/2019 Telephone Dermatology at [facility] Cm Kaminski III, [address] [place] [address] [facility] [phone] DIANA MEDINA-DERMAT [place], [place] [address] (Wo rk) Social History Tobacco [...] annie) Cm Kaminski MD Section of Dermatology [facility] documented in this encounter Plan of Treatment Upcoming Encounters Date Type Specialty Care Team Description 03/14/2022 Office Visit Dermatology [place] Edgar MD [facility] ER DR DIANA MEDINA-DERMAT [place], [place] [address] (Wo rk) documented as of this encounter Visit Diagnoses Not on filedocumented in this encounter Care Teams Electronics Scale Tester Relationship Specialty Start Date End Date Leeanne Schultz MD PCP - General 10/28/13 [address] [place] [address] documented as of this encounter
--- OUTSIDE RECORDS SUMMARY | 2022-02-06 11:48 | XMS_ITS | Encounter Summary ---
:1945 Author Organization [facility] [place] [address] Care Team Providers Name Role Phone Leeanne Schultz MD Primary Care Provider Encounter Details Date Type Department Care Team Description 10/03/2018 Telephone Dermatology at [facility] Cm Kaminski III, [address] [place] [address] [facility] [phone] DIANA MEDINA-DERMAT [place], [place] [address] (Wo rk) Social History Tobacco [...] cancelled. Cm Kaminski MD Section of Dermatology [facility] documented in this encounter Plan of Treatment Upcoming Encounters Date Type Specialty Care Team Description 03/14/2022 Office Visit Dermatology [place] Edgar MD [facility] ER DR DIANA MEDINA-DERMAT [place], [place] [address] (Wo rk) documented as of this encounter Visit Diagnoses Not on filedocumented in this encounter Care Teams Healthcare Architect Relationship Specialty Start Date End Date Leeanne Schultz MD PCP - General 10/28/13 [address] [place] [address] documented as of this encounter
--- OUTSIDE RECORDS SUMMARY | 2022-02-06 11:48 | XMS_ITS | Encounter Summary ---
:1945 Author Organization [facility] [place] [address] Care Team Providers Name Role Phone Leeanne Schultz MD Primary Care Provider Encounter Details Date Type Department Care Team Description 12/06/2020 Telephone Gastroenterology at [facility] [place] [address] Social History Tobacco Use Types Packs/Day Years Used Date Former Smoker Smokeless Tobacco: Never Used Alcohol Use Standard Drinks/Week Comments Yes 7 (1 standard drink = 0.6 oz pure alcoho l) Sex Assigned at Date Recorded Female 10/02/2020 6:58 PM EDT documented as of this encounter Miscellaneous Notes Telephone Encounter - hCanda Hayes - 12/06/2020 10:58 AM EDT Leeanne Bush [id number] Diagnosis/Indication: esophagus 1. Have you ever had [...] to patient: You must have a responsible green party who will drive you to your procedure, [...] 03/14/2022 Office Visit Dermatology [place] Edgar MD [facility] DR DIANA CANAS-DERMAT [place], [place] [address] (Wo rk) documented as of this encounter Visit Diagnoses Not on filedocumented in this encounter Care Teams Dry Chain Offbearer Relationship Specialty Start Date End Date Leeanne Schultz MD PCP - General 10/28/13 [address] [place], [place] [address] documented as of this encounter
--- OUTSIDE RECORDS SUMMARY | 2022-02-06 11:48 | XMS_ITS | Encounter Summary ---
:1945 Author Organization [facility] [place] [address] Care Team Providers Name Role Phone Leeanne Schultz MD Primary Care Provider Encounter Details Date Type Department Care Team Description 10/04/2020 [facility] [place] (epidermal Road inclusion cyst) [address] [facility] [address] [facility] [phone] RD-DERMATOLOGY [place] [address] Social History Tobacco Use Types Packs/Day Years [...] at . You may also contact your Webmaster: Miguel Angel Evans CMA during the day at . In the case of urgency after 5PM and on weekends, please call the hospital number and ask for the Online Media Buyer alliance consultant. Your Surgeon was: [place] Edgar MD Medical [...] signed by Berlin Edgar MD FAAD Staff Online Media Buyer Department of Dermatology [facility] [place] Edgar MD - 10/04/2020 8:00 AM EDT Excision results consistent with an Epidermal Inclusion Cyst. - A benign cyst of the skin w/o concerning findings - No further intervention required - Continue wound care per handout provided Seen and reviewed by: [place] Edgar MD Staff Online Media Buyer Department of Dermatology documented in this encounter [...] Visit Dermatology [place] Edgar MD [facility] ER DR DIANA CANAS-DERMAT [place] [address] (Wo rk) documented as of this encounter [...] Component Value Ref Test Analysis Performed At [facility] Time Signature Surgical [id number] ? Location: [facility] Report The signing pathologist has (i) examined the relevant preparation(s) for the MEMORIAL specimen(s) and (ii) rendered or confirmed the diagnosis(es) . HOSPITAL LABORATORY . ?Surgic al Pathology DIAGNOSIS Upper back, skin ??excision: - Epidermal inclusion cyst Electronically signed by: ?Sacha Nunez MD Verified: ??10/06/2020 14:22 ??Dermatopathologist Performed at: ??-[facility] Dept. of Pathology, [place], [place] SPECIMEN(S) SUBMITTED A - upper back, [...] material. Sections/Processing: Inked, serially sectioned an d volunteer patient representative sections submitted in 1 cassette labeled A1. ??sns Specimen (Source) Anatomical Collection Method Collection Time Re ceived Time Location / / Volume Laterality 10/04/2020 8:52 AM EDT Berlin Edgar MD PATHOLOGY/CYTOLOGY ORDERABLE S Performing Organization Address City/[facility]/[place] [address] Specimen to Pathology (10/04/2020 8:52 AM EDT) Specimen Anatomical Collection Method Collection Time Receive d Time (Source) Location / / Volume Laterality AP Specimen 10/04/2020 8:52 AM 8:52 EDT AM EDT Narrative [facility] - 10/04/2020 8:52 AM EDT Specimen requisition ordered. ??Separate Pathology report to follow [place] Edgar MD PATHOLOGY/CYTOLOGY ORDERABLE S Performing Organization Address City/[facility]/[place] [address] documented in this encounter Visit Diagnoses Diagnosis EIC (epidermal inclusion cyst) Sebaceous cyst documented in this encounter Care Teams Oil Expeller Relationship Specialty Start Date End Date Leeanne Schultz MD PCP - General 10/28/13 [address] [place] [address] documented as of this encounter
--- OUTSIDE RECORDS SUMMARY | 2022-02-06 11:48 | XMS_ITS | Encounter Summary ---
:1945 Author Organization [facility] [place] [address] Care Team Providers Name Role Phone Leeanne Schultz MD Primary Care Provider Encounter Details Date Type Department Care Team Description 12/22/2019 Telephone Urology at [facility] Megan Plaza, [facility] Kwasi fernán[place] [address] [facility] [phone] UROLOGY DEPT. [place], [place] [address] (Wo rk) Social History Tobacco [...] Visit Dermatology Edgar, Berlin J , MD [facility] DR DIANA CANAS-DERMAT [place], [place] [address] (Wo rk) documented as of this encounter Visit Diagnoses Not on filedocumented in this encounter Care Teams Security Solutions Architect Relationship Specialty Start Date End Date Leeanne Schultz MD PCP - General 10/28/13 [address] [place] [address] documented as of this encounter
--- OUTSIDE RECORDS SUMMARY | 2022-02-06 11:48 | XMS_ITS | Encounter Summary ---
:1945 Author Organization [place] [place] [address] Care Team Providers Name Role Phone Leeanne Schultz MD Primary Care Provider Encounter Details Date Type Department Care Team Description 05/13/2020 Telephone Gastroenterology at [facility] [place] [address] Social History Tobacco Use Types Packs/Day [...] [place] Edgar MD [facility] ER DR DIANA CANAS-DERMAT [place], [place] [address] (Wo rk) documented as of this encounter Visit Diagnoses Not on filedocumented in this encounter Care Teams Thread Roller Relationship Specialty Start Date End Date Leeanne Schultz MD PCP - General 10/28/13 [address] [place] [address] documented as of this encounter
--- OUTSIDE RECORDS SUMMARY | 2022-02-06 11:48 | XMS_ITS | Encounter Summary ---
:1945 Author Organization [facility] [place] [address] Care Team Providers Name Role Phone Leeanne Schultz MD Primary Care Provider Encounter Details Date Type Department Care Team Description 10/06/2020 Office Visit Dermatology at [facility] [place] Edgar A ctinic keratosis; [place] PETER EIC (epidermal inclusion cyst); [address] [facility] Dermal nevus of other site; [place] [address] Lipoma, unspecified site; [phone] [facility] keratose s; RD-DERMATOLOGY History of melanoma; [place], [place] [address] History of melanoma in [...] back. ? August 2007, MIS treated in [place] ? Right lateral thigh. 07/17/2014,??MIS, left upper [...] bed use y She grew up in [place] with a [...] and signed by: [place] Edgar MD Dermatology [facility] documented in this encounter Plan of Treatment Upcoming Encounters Date Type Specialty Care Team Description 03/14/2022 Office Visit Dermatology [place] Edgar MD [facility] DR DIANA CANAS-DERMAT [place] [id number] (Wo rk) documented as of this encounter [...] skin documented in this encounter Care Teams Microbiological Analyst Relationship Specialty Start Date End Date Leeanne Schultz MD PCP - General 10/28/13 [address] [place] [address] documented as of this encounter
--- OUTSIDE RECORDS SUMMARY | 2022-02-06 11:48 | XMS_ITS | Encounter Summary ---
:1945 Author Organization [facility] [place] [address] Care Team Providers Name Role Phone Leeanne Schultz MD Primary Care Provider Encounter Details Date Type Department Care Team Description 11/22/2020 Office Visit Urology at [facility] Megan Plaza Pelvic organ prolapse [facility] MD Felisha quantification stage 3 [facility] [place] [address] UROLOGY DEPT. [phone] [place], [place] [address] Social History Tobacco Use Types [...] [place] Edgar MD [facility] ER DR DIANA CANAS-DERMAT [place], [place] [address] (Wo rk) documented as of this encounter Visit Diagnoses Diagnosis Pelvic organ prolapse quantification sta ge 3 rectocele documented in this encounter Care Teams Professional Wrestler Relationship Specialty Start Date End Date Leeanne Schultz MD PCP - General 10/28/13 [address] [place] [address] documented as of this encounter
--- OUTSIDE RECORDS SUMMARY | 2022-02-06 11:49 | XMS_ITS | Encounter Summary ---
:1945 Author Organization [facility] [place] [address] Care Team Providers Name Role Phone Leeanne Schultz MD Primary Care Provider Encounter Details Date Type Department Care Team Description 10/24/2015 Telephone Dermatology at [facility] Ni Zamudio MD [address] [facility] [place] [address] DIANA CANAS-DERMATOLOGY [phone] [place] [address] (Wo rk) Social History Tobacco Use Types [...] MD [facility] DR DIANA CANAS-DERMAT [place], [place] [address] (Wo rk) documented as of this encounter Visit Diagnoses Not on filedocumented in this encounter Care Teams Battery Builder Relationship Specialty Start Date End Date Leeanne Schultz MD PCP - General 10/28/13 [address] [place] [address] documented as of this encounter
--- OUTSIDE RECORDS SUMMARY | 2022-02-06 11:49 | XMS_ITS | Encounter Summary ---
:1945 Author Organization [facility] [place] [address] Care Team Providers Name Role Phone Leeanne Schultz MD Primary Care Provider Reason for Visit Reason Onset Date Comments Other 05/02/2015 Telephone Encounter Details Date Type Department Care Team Description 05/02/2015 [facility] ([facility]) [place] PETER [address] [facility] [place] [address] [facility] [phone] [place], [place] [address] (Wo rk) Social History Tobacco Use Types Packs/Day Years Used Date Former Smoker Smokeless Tobacco: Never Used Alcohol Use Standard Drinks/Week Comments Yes 7 (1 standard drink = 0.6 oz pure alcoho l) Sex Assigned at Date Recorded Female 10/02/2020 6:58 PM EDT documented as of this encounter Miscellaneous Notes Telephone Encounter - Magdiel Juárez - 05/02/2015 3:36 PM EST Attempted to reach pharmacy phone number is [phone] and the patient has already picked up the script. - no prior auth needed. documented in this encounter Plan of Treatment Upcoming Encounters Date Type Specialty Care Team Description 03/14/2022 Office Visit Dermatology [place] Edgar MD [facility] ER DR DIANA CANAS-DERMAT [place], [place] [address] (Wo rk) documented as of this encounter Visit Diagnoses Not on filedocumented in this encounter Care Teams Physician Practice Market Manager Relationship Specialty Start Date End Date Leaenne Schultz MD PCP - General 10/28/13 [address] [place] [address] documented as of this encounter
--- OUTSIDE RECORDS SUMMARY | 2022-02-06 11:49 | XMS_ITS | Encounter Summary ---
:1945 Author Organization [facility] [place] [address] Care Team Providers Name Role Phone Leeanne Schultz MD Primary Care Provider Encounter Details Date Type Department Care Team Description 01/10/2018 Hospital Encounter [place] [address] Social History Tobacco Use Types Packs/Day [...] 2 times daily. Tablet clonazePAM (KLONOPIN) 1 0 08/07/2013 mg tablet [...] need for redness / rash on face ciprofloxacin (CIPRO) 500 Take 1 tablet by [...] Dermatology [place] Edgar MD [facility] DR DIANA CANAS-DERMAT [place], [place] [address] (Wo rk) documented as of [...] Code Phon e Number DH RAD DH [place], [place] documented in this encounter Visit Diagnoses Not on filedocumented in this encounter Care Teams Medical Housekeeper Relationship Specialty Start Date End Date Leeanne Schultz MD PCP - General 10/28/13 [address] [place] [address] documented as of this encounter
--- OUTSIDE RECORDS SUMMARY | 2022-02-06 11:49 | XMS_ITS | Encounter Summary ---
:1945 Author Organization [place] [address] Care Team Providers Name Role Phone Leeanne Schultz MD Primary Care Provider Encounter Details Date Type Department Care Team Description 01/21/2015 Telephone Dermatology at [facility] Ni Zamudio MD [address] [facility] [place] [address] DIANA CANAS-DERMATOLOGY [phone] [place], [place] [address] (Wo rk) Social History Tobacco [...] Edgar MD [facility] DR DIANA CANAS-DERMAT [place], [place] [address] (Wo rk) documented as of this encounter Visit Diagnoses Diagnosis Family history of melanoma Family history of other specified malign ant neoplasm documented in this encounter Care Teams Associate Professor Of Art Relationship Specialty Start Date End Date Leeanne Schultz MD PCP - General 10/28/13 [address] [place] [address] documented as of this encounter
--- OUTSIDE RECORDS SUMMARY | 2022-02-06 11:49 | XMS_ITS | Encounter Summary ---
:1945 Author Organization [facility] Address [place] [id number] Care Team Providers Name Role Phone Leeanne Schultz MD Primary Care Provider Reason for Referral MRI/CAT Scan (Routine) - Closed Specialty Diagnoses / Procedures Referred By Contact Refer red To Contact Radiology Diagnoses Melanoma Evy Gramajo MD [facility] Rad Ct Scan Procedures PET/CT Standard Plus Extremities and Head [facility] HEMATOLOGY/[place] [address] [place] [address] Referral ID Status Reason Start Date Expiration Date Visits Requ ested Visits Authorized [id number] Closed 01/26/2015 01/26/2016 1 1 Reason for Visit MRI/CAT Scan (Routine) - Closed Specialty Diagnoses / Procedures Referred By Contact Refer red To Contact Radiology Diagnoses Melanoma Evy Gramajo MD [facility] Rad Ct Scan Procedures PET/CT Standard Plus Extremities and Head [facility] HEMATOLOGY/[place] [address] [place] [address] Referral ID Status Reason Start Date Expiration Date Visits Requ ested Visits Authorized [id number] Closed 01/26/2015 01/26/2016 1 1 Encounter Details Date Type Department Care Team Description 02/04/2015 Hospital Encounter Nuclear Medicine at [facility] [place] lancaster MD [facility] DR Baldwin HEMATOLOGY/[place] [address] DEPT [phone] [place], [place] [address] (Wo rk) Social History Tobacco [...] mg by mouth 0 09/03 Tablet nightly. CELEBREX 200 mg capsule Take 200 [...] Care Team Description 03/14/2022 Office Visit Dermatology Berlni Edgar MD [facility] ER DR DIANA CANAS-DERMAT [place], [place] [address] (Wo rk) documented as of [...] 1. ??Focus of FDG activity at the hair blender ior tongue. This could be due to [...] calculus. Thank you for referring this patient [facility] PET Center. This report was reviewed by Mehnaz Saenz at 02/04/2015 2:04 PM Narrative 02/04/2015 2:04 PM EDT EXAMINATION: PET/CT STANDARD WITH EXTREMITIES AND HEAD CLINICAL HISTORY: melanoma TECHNIQUE: Following IV injection of 18- srpdta-5-ffzottvaqvoi (FDG) a standard uptake of approximately 60 [...] melanoma TECHNIQUE: Following IV injection of 18- ndzkcx-5-ypyalwxtewqf (FDG) a standard uptake of approximately 60 [...] calculus. Thank you for referring this patient [facility] PET Center. This report was reviewed by Mehnaz Saenz at 02/04/2015 2:04 PM Evy Gramajo MD IMG PET ORDERABLES POCT Glucose (02/04/2015 8:58 AM EDT) athologist Signature POC Glucose 82 65 - 199 CERNER mg/dL [facility] Comment: Supplemental ranges: <140 mg/dL before meals <180 mg/dL all other times of the day Specimen Anatomical Collection Method Collection Time Receive d Time (Source) Location / / Volume Laterality Blood specimen 02/04/2015 8:58 AM 015 8:58 (specimen) EDT AM EDT Evy Gramajo MD POINT OF CARE TEST ORDERABLE S Performing Organization Address City/State/ZIP Code Phon e Number [address] [facility] documented in this encounter Visit Diagnoses Diagnosis [...] Routine documented in this encounter Care Teams Re Dye Hand Relationship Specialty Start Date End Date Leeanne Schultz MD PCP - General 10/28/13 [address] [place] [address] documented as of this encounter
--- OUTSIDE RECORDS SUMMARY | 2022-02-06 11:49 | XMS_ITS | Encounter Summary ---
:1945 Author Organization [facility] [address] Care Team Providers Name Role Phone Leeanne Schultz MD Primary Care Provider Reason for Visit Reason Comments Skin Check Encounter Details Date Type Department Care Team Description 04/22/2015 Office Visit Dermatology at [place] lesion (Primary Dx); [place] PETER History of basal cell cancer; [address] [facility] [place] [address] [facility] [place] [place], [place] [address] Social History Tobacco Use Types [...] back. ? August 2007, MIS treated in [place] ? Right lateral thigh. 6. 10/2006 Right lower back, mild to moderate DN , Excised 7. She grew up in [place] with a history of extensive sun exposure. [...] that she had 3 melanomas treated in [place] including her left and right thighs. ADR: [...] encounter. Ni Zamudio MD Section of Dermatology [facility] documented in this encounter Plan of Treatment Upcoming Encounters Date Type Specialty Care Team Description 03/14/2022 Office Visit Dermatology [place] Edgar MD [facility] [address] [address] [place], [place] [address] (Wo rk) documented as [...] Surgical Pathology Report (04/22/2015 5:06 PM EST) [facility] Method Time Signature Surgical [id number] ?Location: [facility] Pathology [facility] Report The signing pathologist has (i) [...] Organization Address City/State/[place] [address] [facility] Specimen to Pathology (NON-OR) (04/22/2015 5:06 [...] Organization Address City/State/[place] [address] GUILLERMINA WILKS documented in this encounter Visit Diagnoses Diagnosis Skin lesion - Primary Unspecified disorder of skin and subcuta neous tissue History of basal cell cancer Personal history of other malignant neop lasm of skin History of melanoma Personal history of malignant melanoma o f skin documented in this encounter Care Teams Project Management Analyst Relationship Specialty Start Date End Date Leeanne Schultz MD PCP - General 10/28/13 [address] [place] [address] documented as of this encounter
--- OUTSIDE RECORDS SUMMARY | 2022-02-06 11:49 | XMS_ITS | Encounter Summary ---
:1945 Author Organization [facility] [place] [address] Care Team Providers Name Role Phone Leeanne Schultz MD Primary Care Provider Reason for Visit Reason Comments Follow-up Encounter Details Date Type Department Care Team Description 02/04/2015 Office Visit Hematology and Oncology at [place] Sharp APRN [facility] DR HEMATOLOGY[place] [address] Melanoma [facility] Evy Gramajo MD [facility] HEMATOLOGY/[place] [address] [facility] [place] f[place] [address] Social History Tobacco Use Types Packs/Day [...] from the original note were not included. [facility] NOTE REFERING PHYSICIAN: Dr. Green DIAGNOSIS: [...] local excision with sentinelnode biopsy done in [place] In 2008 resected right lateral thigh thin [...] Visit Dermatology [place] Edgar MD [facility] [address] [place], [place] [address] (Wo rk) documented as of this encounter Visit Diagnoses Diagnosis Melanoma Melanoma of skin, site unspecified documented in this encounter Care Teams Printed Circuit Boards Stripper Etcher Relationship Specialty Start Date End Date Leeanne Schultz MD PCP - General 10/28/13 [address] [place] [address] documented as of this encounter
--- OUTSIDE RECORDS SUMMARY | 2022-02-06 11:49 | XMS_ITS | Encounter Summary ---
:1945 Author Organization [facility] [place] [address] Care Team Providers Name Role Phone Leeanne Schultz MD Primary Care Provider Reason for Visit Reason Comments Rectal Bleeding Auth/Cert Specialty Diagnoses / Procedures Referred By Contact Refer red To Contact Diagnoses Abdominal pain Referral ID Status Reason Start Date Expiration Date Visits Requ ested Visits Authorized [id number] 1 1 Encounter Details Date Type Department Care Team Description 01/10/2018 - Hospital Encounter 2 Sarah Raines MD [facility] [place] [address] Abdominal pain, [facility] MD [facility] [place] [address] unspecified [place] [id number] Social History Tobacco Use Types Packs/Day Years [...] PMH HTN who is s/p colonoscopy at [facility] on 01/09/18. Following the colonoscopy, she presented to [facility] with BRBPR and abdominal pain. She stated she had not felt well since the colonoscopy. She had one episode of passing multiple quarter-sized clots per rectum the morning of 01/10/18. She had progressive abdominal pain during the day and decreased appetite which prompted her to go to [facility] ED. On arrival she was hemodynamically normal and labs were within normal limits. She underwent CT scan which showed pneumoperitoneum. She then elected to leave the ED AMA to come to [facility] for further care. On arrival to [facility] she was hemodynamically normal. Hospital Course: Leeanne [...] have any questions or concerns, please call [phone] before 5pm Saturday through Saturday; [phone] after 5pm and on weekends. Diet: You [...] Schultz MD [address] / [facility] [address] documented in this encounter Discharge Instructions Discharge InstructionsWeTosin medrano PA - 01/13/2018 11:03 AM EDT Instructions Given to Patient at Discharge: ?? Minimally Invasive Surgery Discharge Instructions ?? If you have any questions or concerns, please call [phone] before 5pm Saturday through Saturday; [phone] after 5pm and on weekends. ?? Diet: [...] need for redness / rash on face minocycline Take 50 mg by mouth 0 [...] Albert Perea - 01/13/2018 12:59 PM EDT [employer] Supervisor Encounter Note Narrative: Responded to consult request, [...] BILIDIR 0.1 No results for input(s): PHART, [id number], PO2ART, [id number], BEART in the last 168 hours. Microbiology: [...] Code, Antonina Monroy MD 01/11/2018 MIS Pager [phone] Attending Note I saw the pt with [...] since this morning. She went back to [facility] this afternoon and was admitted to the [facility]. [facility] feel [...] Negative mcL Appearance UA Clear Clear Spec [place] UA 1.026 1.002 - 1.030 Color UA [...] Howard MD - 01/11/2018 1:29 AM EDT [facility] Department of Surgery Inpatient Consult Note Consultation Requested by: Sylvia Olvera MD HPI: We are seeing Leeanne Bush today at the request of Sylvia Islas MD for evaluationand advice about pneumoperitoneum. This is a 72 y.o. female with PMH HTN who is s/p colonoscopy at [facility] on 01/09/18. She presented to [facility] with BRBPR and abdominal pain. She states she has not felt well since the colonoscopy. She had one episode of passing multiple quarter-sized clots per rectum this morning. She had progressive abdominal pain during the day and decreased appetite which prompted her togo to [facility] ED. On arrival she was hemodynamically normal and labs were within normal limits. She underwent CT scan which showed pneumoperitoneum. She then elected to leave the ED AMA to come to [facility] for further care. On arrival to [facility] she was hemodynamically normal. PMH: Past Medical [...] Dermatology [place] Edgar MD [facility] ER DR DIANA [place]NA[place], [place] [address] (Wo rk) documented as of [...] athologist Signature Phosphorus 3.2 2.5 - 4.5 [facility] mg/dL [facility] Specimen Anatomical Collection Method Collection Time Receive d Time (Source) Location / / Volume Laterality Blood specimen 01/13/2018 1:29 AM 018 1:42 (specimen) EDT AM EDT Resulting Agency Comment Spec In Lab Billy Howard MD CHEMISTRY ORDERABLES Performing Organization Address City/State/[place] [address] Magnesium (01/13/2018 1:29 AM EDT) P athologist Signature Magnesium 0.85 0.69 - 1.07 [facility] mmol/L [facility] Specimen Anatomical Collection Method Collection Time Receive d Time (Source) Location / / Volume Laterality Blood specimen 01/13/2018 1:29 AM 018 1:42 (specimen) EDT AM EDT Resulting Agency Comment Spec In Lab Billy Howard MD CHEMISTRY ORDERABLES Performing Organization Address City/State/[place] [address] Basic Metabolic Panel (non-fasting) (01/13/2018 1:29 AM EDT) P athologist Signature Glucose Lvl 109 65 - 199 [facility] mg/dL [facility] Comment: Diabetes: >=200 mg/dL plus symp toms BUN 14 8 - 18 mg/dL [facility] Creatinine 0.80 0.70 - 1.20 mg/dL [facility] Sodium 138 135 - 145 mmol/L [facility] Potassium 4.1 3.5 - 5.0 mmol/L [facility] Comment: Please note: ??Patients with WBC >100,00 0 may have falsely elevated Potassium levels. ??For accurate Potassium quantif ication in these patients send serum separator tube (gold top) for subsequent determinations. ??Contact the Clinical Chemistry Laboratory if there are any qu estions. Chloride 102 98 - 107 mmol/L [facility] CO2 23 22 - 31 mmol/L [facility] Anion Gap 13 5 - 15 mmol/L [facility] Calcium 8.6 8.5 - 10.5 mg/dL [facility] Estimated GFR 74 >=60 mL/min/1.73 m?? [facility] Comment: The eGFR was calculated using the CKD-EP I equation. As with all creatinine based estimates of kidney function, eGFR values calculated with the CKD-EPI equation are not accurate in patients wi th acute kidney failure, extremes of body mass or the acutely ill. http://[employer]/DHMCnkf eGFR 86 >=60 mL/min/1.73 m?? [facility] Comment: The eGFR was calculated using the CKD-EP I equation. As with all creatinine based estimates of kidney function, eGFR values calculated with the CKD-EPI equation are not accurate in patients wi th acute kidney failure, extremes of body mass or the acutely ill. http://[employer]/DHMCnkf Specimen Anatomical Collection Method Collection Time Receive d Time (Source) Location / / Volume Laterality Blood specimen 01/13/2018 1:29 AM 018 1:42 (specimen) EDT AM EDT Resulting Agency Comment Spec In Lab Billy Howard MD CHEMISTRY ORDERABLES Performing Organization Address City/State/[place] [address] (ABNORMAL) Hemogram (01/13/2018 1:29 AM EDT) Analysis Performed At Patho logist Time Signature WBC 7.4 4.0 - 9.5 [facility] LABORATORY RBC 3.08 (L) 4.00 - [facility] 5.21 [facility] x10(6)/[facility] LABORATORY Hemoglobin 9.4 (L) 11.7 - [facility] 15.5 gm/dL [facility] Hematocrit 29.6 (L) 35.7 - [facility] 45.8 % [facility] MCV 96.1 (H) 82.6 - [facility] 94.4 [facility] LABORATORY MCH 30.5 27.1 - [facility] 32.0 pg [facility] MCHC 31.8 31.7 - [facility] 35.0 gm/dL [facility] Platelets 353 145 - 357 [facility] x10(3)/[facility] LABORATORY RDWSD 45.2 37.0 - [facility] [place] 46.0 [facility] LABORATORY RDWCV 12.9 11.5 - [facility] 14.1 % [facility] MPV 9.0 7.6 - 12.9 [facility] nRBC % Auto 0.0 % [facility] nRBC Abs Auto 0.000 0.000 - [facility] [place] 0.000 [facility] x10(3)/[facility] LABORATORY Specimen Anatomical Collection Method Collection Time Receive d Time (Source) Location / / Volume Laterality Blood specimen 01/13/2018 1:29 AM 018 1:42 (specimen) EDT AM EDT Resulting Agency Comment Spec In Lab Billy Howard MD HEMATOLOGY ORDERABLES Performing Organization Address City/State/[place] [address] (ABNORMAL) Hemogram (01/12/2018 4:10 AM EDT) Analysis Performed At Patho logist Time Signature WBC 5.1 4.0 - 9.5 [facility] LABORATORY RBC 2.91 (L) 4.00 - [facility] [place] 5.21 [facility] x10(6)/[facility] LABORATORY Hemoglobin 8.9 (L) 11.7 - [facility] 15.5 gm/dL [facility] Hematocrit 28.2 (L) 35.7 - [facility] 45.8 % [facility] MCV 96.9 (H) 82.6 - [facility] 94.4 [facility] LABORATORY MCH 30.6 27.1 - [facility] [place] 32.0 pg [facility] MCHC 31.6 (L) 31.7 - [facility] 35.0 gm/dL [facility] Platelets 289 145 - 357 [facility] x10(3)/[facility] LABORATORY RDWSD 46.1 (H) 37.0 - [facility] 46.0 [facility] LABORATORY RDWCV 12.8 11.5 - [facility] [place] 14.1 % [facility] MPV 9.1 7.6 - 12.9 [facility] LABORATORY nRBC % Auto 0.0 % [facility] nRBC Abs Auto 0.000 0.000 - [facility] [place] 0.000 [facility] x10(3)/[facility] LABORATORY Specimen Anatomical Collection Method Collection Time Receive d Time (Source) Location / / Volume Laterality Blood specimen 01/12/2018 4:10 AM 018 4:13 (specimen) EDT AM EDT Resulting Agency Comment Spec In Lab Billy Howard MD HEMATOLOGY ORDERABLES Performing Organization Address City/State/ZIP Code Phon e Number [place] [id number] Phosphorus (01/12/2018 4:10 AM EDT) P athologist Signature Phosphorus 3.1 2.5 - 4.5 [facility] mg/dL [facility] Specimen Anatomical Collection Method Collection Time Receive d Time (Source) Location / / Volume Laterality Blood specimen 01/12/2018 4:10 AM 018 4:13 (specimen) EDT AM EDT Resulting Agency Comment Spec In Lab Billy Howard MD CHEMISTRY ORDERABLES Performing Organization Address City/[facility]/ZIP Code Phon e Number [address] Magnesium (01/12/2018 4:10 AM EDT) P athologist Signature Magnesium 0.76 0.69 - 1.07 [facility] mmol/L [facility] Specimen Anatomical Collection Method Collection Time Receive d Time (Source) Location / / Volume Laterality Blood specimen 01/12/2018 4:10 AM 018 4:13 (specimen) EDT AM EDT Resulting Agency Comment Spec In Lab Billy Howard MD CHEMISTRY ORDERABLES Performing Organization Address City/[facility]/ZIP Code Phon e Number [address] (ABNORMAL) Basic Metabolic Panel (non-fasting) (01/12/2018 4:10 AM EDT) athologist Signature Glucose Lvl 57 (L) 65 - 199 [facility] mg/dL [facility] Comment: Diabetes: >=200 mg/dL plus symp toms BUN 11 8 - 18 mg/dL [facility] Creatinine 0.53 (L) 0.70 - 1.20 mg/dL [facility] Sodium 139 135 - 145 mmol/L [facility] Potassium 4.3 3.5 - 5.0 mmol/L [facility] Comment: Please note: [...] CO2 18 (L) 22 - 31 mmol/L [facility] Anion Gap 17 (H) 5 - 15 mmol/L [facility] Calcium 8.2 (L) 8.5 - 10.5 mg/dL [facility] Estimated GFR 96 >=60 mL/min/1.73 m?? [facility] Comment: The eGFR was calculated using the CKD-EP I equation. As with all creatinine based estimates of kidney function, eGFR values calculated with the CKD-EPI equation are not accurate in patients wi th acute kidney failure, extremes of body mass or the acutely ill. http://[employer]/[facility]OR[facility] eGFR 111 >=60 mL/min/1.73 m?? [facility] Comment: The eGFR was calculated using the CKD-EP I equation. As with all creatinine based estimates of kidney function, eGFR values calculated with the CKD-EPI equation are not accurate in patients wi th acute kidney failure, extremes of body mass or the acutely ill. http://[employer]/[facility] CL[facility]EMOR[facility]kf Specimen Anatomical Collection Method Collection Time Receive d Time (Source) Location / / Volume Laterality Blood specimen 01/12/2018 4:10 AM 018 4:13 (specimen) EDT AM EDT Resulting Agency Comment Spec In Lab Billy Howard MD CHEMISTRY ORDERABLES Performing Organization Address City/State/[place] [address] (ABNORMAL) Hemogram (01/11/2018 10:06 PM EDT) Analysis Performed At Patho logist Time Signature WBC 6.2 4.0 - 9.5 [facility] x10(3)/[facility] LABORATORY RBC 2.93 (L) 4.00 - [facility] 5.21 [facility] x10(6)/[facility] LABORATORY Hemoglobin 9.2 (L) 11.7 - [facility] 15.5 gm/dL [facility] Hematocrit 28.4 (L) 35.7 - [facility] 45.8 % [facility] MCV 96.9 (H) 82.6 - [facility] 94.4 [facility] LABORATORY MCH 31.4 27.1 - [facility] [place] 32.0 [facility] LABORATORY MCHC 32.4 31.7 - [facility] [place] 35.0 gm/dL [facility] Platelets 293 145 - 357 [facility] [place] x10(3)/[facility] LABORATORY RDWSD 46.4 (H) 37.0 - [facility] [place] 46.0 [facility] LABORATORY RDWCV 13.0 11.5 - [facility] 14.1 % [facility] MPV 8.9 7.6 - 12.9 [facility] [place] [facility] LABORATORY nRBC % Auto 0.0 % [facility] nRBC Abs Auto 0.000 0.000 - [facility] [place] 0.000 [facility] x10(3)/[facility] LABORATORY Specimen Anatomical Collection Method Collection Time Receive d Time (Source) Location / / Volume Laterality Blood specimen 01/11/2018 10:06 8 (specimen) PM EDT 10:09 PM EDT Resulting Agency Comment Spec In Lab Billy Howard MD HEMATOLOGY ORDERABLES Performing Organization Address City/State/[place] [address] (ABNORMAL) Hemogram (01/11/2018 12:54 PM EDT) Analysis Performed At Patho logist Time Signature WBC 6.7 4.0 - 9.5 [facility] x10(3)/[facility] LABORATORY RBC 2.96 (L) 4.00 - [facility] 5.21 [facility] x10(6)/[facility] LABORATORY Hemoglobin 9.3 (L) 11.7 - [facility] [place] 15.5 gm/dL [facility] Hematocrit 28.5 (L) 35.7 - [facility] [place] 45.8 % [facility] MCV 96.3 (H) 82.6 - [facility] 94.4 [facility] LABORATORY MCH 31.4 27.1 - [facility] [place] 32.0 [facility] LABORATORY MCHC 32.6 31.7 - [facility] [place] 35.0 gm/dL [facility] Platelets 282 145 - 357 [facility] [place] x10(3)/[facility] LABORATORY RDWSD 47.3 (H) 37.0 - [facility] 46.0 [facility] LABORATORY RDWCV 13.2 11.5 - [facility] 14.1 % [facility] MPV 9.1 7.6 - 12.9 [facility] LABORATORY nRBC % Auto 0.0 % [facility] nRBC Abs Auto 0.000 0.000 - [facility] 0.000 [facility] x10(3)/[facility] LABORATORY Specimen Anatomical Collection Method Collection Time Receive d Time (Source) Location / / Volume Laterality Blood specimen 01/11/2018 12:54 8 1:03 (specimen) PM EDT PM EDT Resulting Agency Comment Spec In Lab Billy Howard MD HEMATOLOGY ORDERABLES Performing Organization Address City/State/[place] [address] (ABNORMAL) Basic Metabolic Panel (non-fasting) (01/11/2018 5:17 AM EDT) P athologist Signature Glucose Lvl 69 65 - 199 [facility] mg/dL [facility] Comment: Diabetes: >=200 mg/dL plus symp toms BUN 15 8 - 18 mg/dL [facility] Creatinine 0.59 (L) 0.70 - 1.20 mg/dL [facility]ORY Sodium 140 135 - 145 mmol/L [facility] Potassium 3.9 3.5 - 5.0 mmol/L [facility] Comment: Please note: ??Patients with WBC >100,00 0 may have falsely elevated Potassium levels. ??For accurate Potassium quantif ication in these patients send serum separator tube (gold top) for subsequent determinations. ??Contact the Clinical Chemistry Laboratory if there are any qu estions. Chloride 105 98 - 107 mmol/L [facility] CO2 22 22 - 31 mmol/L [facility] Anion Gap 13 5 - 15 mmol/L [facility]ORY Calcium 7.5 (L) 8.5 - 10.5 mg/dL [facility] Estimated GFR 92 >=60 mL/min/1.73 m?? [facility] Comment: The eGFR was calculated using the CKD-EP I equation. As with all creatinine based estimates of kidney function, eGFR values calculated with the CKD-EPI equation are not accurate in patients wi th acute kidney failure, extremes of body mass or the acutely ill. http://[employer]/[facility] CLAREMOREnkf eGFR 107 >=60 mL/min/1.73 m?? [facility] Comment: The eGFR was calculated using the CKD-EP I equation. As with all creatinine based estimates of kidney function, eGFR values calculated with the CKD-EPI equation are not accurate in patients wi th acute kidney failure, extremes of body mass or the acutely ill. http://[employer]/[facility] CLAREMOREnkf Specimen Anatomical Collection Method Collection Time Receive d Time (Source) Location / / Volume Laterality Blood specimen 01/11/2018 5:17 AM 018 6:05 (specimen) EDT AM EDT Resulting Agency Comment Spec In Lab Sylvia Olvera MD CHEMISTRY ORDERABLES Performing Organization Address City/State/[place] [address] (ABNORMAL) Hemogram (01/11/2018 5:17 AM EDT) Analysis Performed At Patho logist Time Signature WBC 5.6 4.0 - 9.5 [facility] [place] x10(3)/[facility] LABORATORY RBC 2.81 (L) 4.00 - [facility] [place] 5.21 [facility] x10(6)/[facility] LABORATORY Hemoglobin 8.9 (L) 11.7 - [facility] [place] 15.5 gm/dL [facility] Hematocrit 27.6 (L) 35.7 - [facility] [place] 45.8 % [facility] MCV 98.2 (H) 82.6 - [facility] [place] 94.4 fL [facility] MCH 31.7 27.1 - [facility] [place] 32.0 pg [facility] MCHC 32.2 31.7 - [facility] [place] 35.0 gm/dL [facility] Platelets 276 145 - 357 [facility] [place] x10(3)/[facility] LABORATORY RDWSD 48.8 (H) 37.0 - [facility] 46.0 [facility] LABORATORY RDWCV 13.5 11.5 - [facility] 14.1 % [facility] MPV 9.3 7.6 - 12.9 [facility] LABORATORY nRBC % Auto 0.0 % [facility] nRBC Abs Auto 0.000 0.000 - [facility] 0.000 [facility] x10(3)/[facility] LABORATORY Specimen Anatomical Collection Method Collection Time Receive d Time (Source) Location / / Volume Laterality Blood specimen 01/11/2018 5:17 AM 018 6:05 (specimen) EDT AM EDT Resulting Agency Comment Spec In Lab Sylvia Olvera MD HEMATOLOGY ORDERABLES Performing Organization Address City/State/[place] [address] (ABNORMAL) Urinalysis Microscopic Exam (01/11/2018 12:38 AM EDT) Patholo gist Method Time Signature RBC UA 2 0 - 4 [facility] /HPF [facility] LABORATORY WBC UA 0 0 - 5 [facility] /HPF [facility] LABORATORY Bacteria UA Rare (A) None /HPF [facility] Squam Epith 2 <=4 /HPF [facility] LABOR[facility]ORY CaOx Leta UA Occasional (A) None /HPF [facility] Specimen Anatomical Collection Method Collection Time Receive d Time (Source) Location / / Volume Laterality Urine specimen 01/11/2018 12:38 8 1:14 (specimen) AM EDT AM EDT Resulting Agency Comment Spec In Lab Dinora Estevez MD URINE ORDERABLES Performing Organization Address City/State/ZIP Code Phon e Number [address] Urine Hold (01/11/2018 12:38 AM EDT) P athologist Signature Urine Hold Sample in [facility]. [facility] Specimen Anatomical Collection Method Collection Time Receive d Time (Source) Location / / Volume Laterality Urine specimen Urine / Unknown 01/11/2018 12:38 2017 1:15 (specimen) AM EDT AM EDT Dinora Estevez MD URINE ORDERABLES Performing Organization Address City/[facility]/[place] [address] (ABNORMAL) Urinalysis with reflex Culture (01/11/2018 12:38 AM EDT) [facility] Method Time Signature Glucose UA Negative Negative [facility] mg/dL [facility] Protein UA Negative Negative [facility] mg/dL [facility] Bilirubin UA Negative Negative [facility] mg/dL [facility] Comment: Clinical correlation required for positi ve Urine Bilirubin results as false positive may occur with some drugs and d rug related products. If a false positive is suspected a serum total bili solis should be considered if clinically indicated. Urobilinogen UA Normal Normal mg/dL [facility] LABORATORY pH UA 5.0 5.0 - 8.[address] [facility]ORY Blood UA Small (A) Negative mg/dL [facility] Ketones UA >=80 (Critical) Negative mg/dL [facility]OR[facility]ORY Comment: Urinalysis result NOT critical without a combination of Glucose greater than or equal to 500mg/dl AND Ketones greater th an or equal to 80mg/dl. Nitrite UA Negative Negative [facility]ORY Leukocytes UA Negative Negative [facility] LABORATORY Appearance UA Clear Clear [facility] LABORATORY Spec [place] UA 1.026 1.002 - 1.030 [facility] LABORATORY Color UA Yellow Yellow [facility] Culture Reflexed No [facility]OR[facility]ORY Specimen Anatomical Collection Method Collection Time Receive d Time (Source) Location / / Volume Laterality Urine specimen 01/11/2018 12:38 8 1:14 (specimen) AM EDT AM EDT Resulting Agency Comment Spec In Lab Sylvia Olvera MD URINE ORDERABLES Performing Organization Address City/[facility]/[place] [address] [facility] (ABNORMAL) Request For 2nd [...] WB 0.6 0.5 - 2.2 [facility] mmol/L [facility] LABORATORY Specimen Anatomical Collection Method Collection Time Receive d Time (Source) Location / / Volume Laterality Blood specimen 01/10/2018 11:57 8 (specimen) PM EDT 11:57 PM EDT Sylvia Olvera MD CHEMISTRY ORDERABLES Performing Organization Address City/State/ZIP Code Phon e Number [address] ABORH Recheck Status (01/10/2018 11:47 PM EDT) [facility] Method Time Signature ABORH Recheck Order Placed [facility] LABORATORY ABORH Type Complete [facility] LABORATORY Specimen Anatomical Collection Method Collection Time Receive d Time (Source) Location / / Volume Laterality Blood specimen 01/10/2018 11:47 8 (specimen) PM EDT 12:01 AM EDT Resulting Agency Comment Spec In Lab Dinora Estevez MD BLOOD BANK ORDERABLES Performing Organization Address City/State/ZIP Code Phon e Number [address] Gold Tube HOLD (01/10/2018 11:47 PM EDT) athologist Signature Gold Hold Sample in [facility]. [facility] LABORATORY Specimen Anatomical Collection Method Collection Time Receive d Time (Source) Location / / Volume Laterality Blood specimen Venous Draw / 01/10/2018 11:47 01/12/20 18 (specimen) Unknown PM EDT 12:01 AM EDT Dinora Estevez MD CHEMISTRY ORDERABLES Performing Organization Address City/State/ZIP Code Phon e Number [address] Differential, Automated (01/10/2018 11:47 PM EDT) P athologist Signature Neutrophils % 55.6 % [facility]ORAT[facility] Neutr Abs (ANC) 4.02 1.70 - [facility] 6.10 [facility] x10(3)/[facility] LABORATORY Lymphocytes % 33.1 % [facility] Lymphocytes Abs 2.4 0.9 - 3.2 [facility] x10(3)/[facility] LABORATORY Monocytes % 7.7 % [facility] Monocyte Abs 0.6 0.3 - 0.9 [facility] x10(3)[facility] LABORATORY Eosinophils % 3.2 % [facility] Eosinophils Abs 0.2 0.0 - 0.4 [facility] x10(3)/[facility] LABORATORY Basophils % 0.3 % [facility] Basophils Abs 0.0 0.0 - 0.1 [facility] x10(3)/[facility] LABORATORY Immature Gran % 0.10 % [facility] Comment: Immature granulocytes(IG's)percentage an d absolute count will include metamyelocytes, myelocytes, and promyelo cytes. Blood smears from CBCs yielding IG's will be scanned manually for concor dance. If this scan disagrees with the automated IG or if promyelocytes are not ed, a manual differential will be performed. Karla Gran Abs 0.01 0.00 - 0.04 x10(3)/[facility] Y [facility] LABORATORY Specimen (Source) Anatomical Collection Method Collection Time Re ceived Time Location / / Volume Laterality Blood specimen 01/10/2018 11:47 8 (specimen) PM EDT Resulting Agency Comment Spec In Lab Dinora Estevez MD HEMATOLOGY ORDERABLES Performing Organization Address City/State/ZIP Code Phon e Number [address] (ABNORMAL) Hemogram (01/10/2018 11:47 PM EDT) Analysis Performed At [facility] Eve[place]to logist Time Signature WBC 7.2 4.0 - 9.5 [facility] x10(3)/[facility] LABORATORY RBC 2.96 (L) 4.00 - [facility] [place] 5.21 [facility] x10(6)/[facility] LABORATORY Hemoglobin 9.0 (L) 11.7 - [facility] 15.5 gm/dL [facility] Hematocrit 28.4 (L) 35.7 - [facility] 45.8 % [facility] MCV 95.9 (H) 82.6 - [facility] 94.4 [facility] LABORATORY MCH 30.4 27.1 - [facility] 32.0 pg [facility]ORAT[facility] MCHC 31.7 31.7 - [facility] 35.[facility] gm/dL [facility] Platelets 289 145 - 357 [facility] x10(3)/[facility] LABORATORY RDWSD 48.3 (H) 37.0 - [facility] 46.0 [facility] LABORATORY RDWCV 13.5 11.5 - [facility] 14.1 % [facility] LABORATORY MPV 9.2 7.6 - 12.9 [facility] LABORATORY nRBC % Auto 0.0 % [facility] nRBC Abs Auto 0.000 0.000 - [facility] 0.000 [facility] x10(3)/[facility] LABORATORY Specimen (Source) Anatomical Collection Method Collection Time Re ceived Time Location / / Volume Laterality Blood specimen 01/10/2018 11:47 8 (specimen) PM EDT Resulting Agency Comment Spec In Lab Dinora Estevez MD HEMATOLOGY ORDERABLES Performing Organization Address City/State/[place] [address] Antibody screen (01/10/2018 11:47 PM EDT) Patholo gist Method Time Signature Ab Screen Negative [facility] LABORATORY Expires at 01/13/2018 [facility] [place]EL[place] [id number] on: [facility] LABORATORY Specimen Anatomical Collection Method Collection Time Receive d Time (Source) Location / / Volume Laterality Blood specimen 01/10/2018 11:47 8 (specimen) PM EDT 12:01 AM EDT Resulting Agency Comment Spec In Lab Dinora Estevez MD BLOOD BANK ORDERABLES Performing Organization Address City/State/[place] [address] ABO/Rh Typing (01/10/2018 11:47 PM EDT) athologist Signature ABORh Type A Neg [facility] LABORATORY Specimen Anatomical Collection Method Collection Time Receive d Time (Source) Location / / Volume Laterality Blood specimen 01/10/2018 11:47 8 (specimen) PM EDT 12:01 AM EDT Resulting Agency Comment Spec In Lab Dinora Estevez MD BLOOD BANK ORDERABLES Performing Organization Address City/[facility]/[place] [address] Troponin T (01/10/2018 11:47 PM EDT) athologist Signature Troponin-T <0.01 0.00 - 0.00 [facility] ng/mL [facility] Comment: The 99th percentile for Troponin [...] additional sample may be indicated. Reference: Third [place] Definition of Myocardial Infarction. Journal of the [place] [employer] 2012;60:1581-98 Specimen (Source) Anatomical Collection Method Collection Time Re ceived Time Location / / Volume Laterality Blood specimen 01/10/2018 11:47 8 (specimen) PM EDT Resulting Agency Comment Spec In Lab Sylvia Olvera MD CHEMISTRY ORDERABLES Performing Organization Address [facility] [place] [address] APTT (01/10/2018 11:47 PM EDT) athologist Signature PTT 28 25 - 37 sec [facility] Comment: The PTT is NOT appropriate [...] Resulting Agency Comment Spec In Lab Sylvia Olevra MD HEMATOLOGY ORDERABLES Performing Organization Address City/[facility] [place] [address] Prothrombin Time (01/10/2018 11:47 PM EDT) P athologist Signature PT 11.8 9.4 - 12.5 [facility] LABORATORY INR 1.1 [facility] Comment: An INR <2.0 indicates adequate [...] Organization Address City/State/[place] [address] Hepatic Function Panel (01/10/2018 11:47 PM EDT) athologist Signature Total Protein 6.2 6.1 - 8.0 [facility] gm/dL [facility] Albumin 4.0 3.2 - 5.2 [facility] [place] gm/dL [facility] AST 11 0 - 30 [facility] [place] unit/L [facility] ALT 10 0 - 30 [facility] [place] unit/L [facility] Alk Phos 59 40 - 104 [facility] unit/L [facility] Total 0.4 0.2 - 1.3 [facility] [place] Bilirubin mg/dL [facility] Bili, Direct 0.1 0.0 - 0.3 [facility] mg/dL [facility] Specimen (Source) Anatomical Collection Method Collection Time Re ceived Time Location / / Volume Laterality Blood specimen 01/10/2018 11:47 8 (specimen) PM EDT Resulting Agency Comment Spec In Lab Sylvia Olvera MD CHEMISTRY ORDERABLES Performing Organization Address City/[facility]/[place] [address] (ABNORMAL) Basic Metabolic Panel (non-fasting) (01/10/2018 11:47 PM EDT) athologist [facility] Glucose Lvl 82 65 - 199 [facility] mg/dL [facility] Comment: Diabetes: >=200 mg/dL plus symp toms BUN 17 8 - 18 mg/dL [facility] LABORATORY Creatinine 0.67 (L) 0.70 - 1.20 mg/dL [facility] LABORATORY Sodium 142 135 - 145 mmol/L [facility] LABORATORY Potassium 4.0 3.5 - 5.0 mmol/L [facility] LABORATORY Comment: Please note: ??Patients with WBC >100,00 0 may have falsely elevated Potassium levels. ??For accurate Potassium quantif ication in these patients send serum separator tube (gold top) for subsequent determinations. ??Contact the Clinical Chemistry Laboratory if there are any qu estions. Chloride 104 98 - 107 mmol/L [facility] CO2 25 22 - 31 mmol/L [facility] Anion Gap 13 5 - 15 mmol/L [facility] LABORATORY Calcium 8.0 (L) 8.5 - 10.5 mg/dL [facility] LABORATORY Estimated GFR 88 >=60 mL/min/1.73 m?? [facility] Comment: The eGFR was calculated using the CKD-EP I equation. As with all creatinine based estimates of kidney function, eGFR values calculated with the CKD-EPI equation are not accurate in patients wi th acute kidney failure, extremes of body mass or the acutely ill. http://[employer]/in2appsnkf eGFR 102 >=60 mL/min/1.73 m?? [facility] Comment: The eGFR was calculated using the CKD-EP I equation. As with all creatinine based estimates of kidney function, eGFR values calculated with the CKD-EPI equation are not accurate in patients wi th acute kidney failure, extremes of body mass or the acutely ill. http://[employer]/[facility] – CLAREMOREnkf Specimen (Source) Anatomical Collection Method Collection Time Re ceived Time Location / / Volume Laterality Blood specimen 01/10/2018 11:47 8 (specimen) PM EDT Resulting Agency Comment Spec In Lab Sylvia Olvera MD CHEMISTRY ORDERABLES Performing Organization Address City/State/ZIP Code Phon e Number [place] [id number] XR Chest PA or [...] EKG 12 Lead (01/10/2018 10:43 PM EDT) [facility] gist Method Time Signature Ventricular rate 89 BPM MUSE SYSTEM Atrial Rate 89 BPM MUSE SYSTEM P-R Interval 188 ms MUSE SYSTEM QRS Duration 78 ms MUSE SYSTEM Q-T Interval 374 ms MUSE SYSTEM QTC Calculated 455 ms MUSE SYSTEM (Bezet) Calculated P [place] 66 degrees MUSE SYSTEM Calculated R [place] -27 degrees MUSE SYSTEM Calculated T [place] 35 degrees MUSE SYSTEM INTERPRETATION Sinus rhythm [...] Olvera MD ECG ORDERABLES Performing Organization Address City/[facility]/ZIP [facility] Phon e Number MUSE SYSTEM Film Library- Storage Only DX Abdomen (01/10/2018 12:05 AM EDT) Specimen (Source) Anatomical Location Collection Method / Collectio n Time Received Time / Laterality Volume Narrative [facility] - 01/11/2018 12:14 AM EDT This exam is for storage only and is aut o-finalizing. Sylvia Olvera MD IMG FILM LIBRARY ORDERABLES Performing Organization Address [facility] Phon e Number [place], [place] Film Library- Storage Only CT Abdomen & Pelvis (01/10/2018 12:00 AM EDT) Specimen (Source) Anatomical Location Collection Method / Collectio n Time Received Time / Laterality Volume [facility] RAD - 01/11/2018 12:10 AM EDT This exam is for storage only and is aut o-finalizing. Sylvia Olvera MD IMG FILM LIBRARY ORDERABLES Performing Organization Address [facility] Phon e Number RAD [place], [place] Film Library- Storage Only DX Chest (01/09/2018 12:05 AM EDT) Specimen (Source) Anatomical Location Collection Method / Collectio n Time Received Time / Laterality Volume [facility] - 01/11/2018 12:14 AM EDT This exam is for storage only and is aut o-finalizing. Sylvia Olvera MD IMG FILM LIBRARY ORDERABLES Performing Organization Address [facility] Phon e Number [place], [place] Film Library- Storage Only DX Abdomen (01/09/2018 12:00 AM EDT) Specimen (Source) Anatomical Location Collection Method / Collectio n Time Received Time / Laterality Volume Narrative RAD - 01/11/2018 12:13 AM EDT This exam is for storage only and is aut o-finalizing. Sylvia Olvera MD IMG FILM LIBRARY ORDERABLES Performing Organization Address City/State/ZIP Code Phon e Number GIGI GIGI [place], [place] documented in this encounter Visit Diagnoses [...] Molly Mari i, RN)[id number] (Stopped - Provider: yMriam Murcia RN) 4.5 g, Intravenous, ONCE, 1 [...] first.
documented in this encounter Care Teams Staying Machine Operator Relationship Specialty Start Date End Date Leeanne Schultz MD PCP - General 10/28/13 [address] [place] [address] documented as of this encounter
--- OUTSIDE RECORDS SUMMARY | 2022-02-06 11:49 | XMS_ITS | Encounter Summary ---
:1945 Author Organization [facility] [place] [address] Care Team Providers Name Role Phone Leeanne Schultz MD Primary Care Provider Reason for Visit Reason Comments Travel Consult Encounter Details Date Type Department Care Team Description 12/19/2015 Office Visit Infectious Disease at [facility] or prophylactic vaccination and inoculation against viral hepatitis; [facility] Chong Counseling about travel; [facility] Motion si ckness, initial encounter; Drive H/[place] [address] Social History Tobacco Use Types Packs/Day [...] (list from first to last): Cruise from [place] to [place] via [facility] [place], [place], [place], [facility], [place]- [facility] then to [place], [place]. Departure date: 01/19/16 Length of trip: [...] Dermatology [place] Edgar MD [facility] ER [address]NA[address] [place], [place] [address] (Wo rk) documented as of this encounter Visit Diagnoses Diagnosis Need for prophylactic vaccination and in oculation against viral hepatitis Counseling about travel Other specified counseling Motion sickness, initial encounter H/O motion sickness Personal history of other specified dise ases documented in this encounter Care Teams Parts Driver Relationship Specialty Start Date End Date Leeanne Schultz MD PCP - General 10/28/13 [address] [place] [address] documented as of this encounter
--- OUTSIDE RECORDS SUMMARY | 2022-02-06 11:49 | XMS_ITS | Encounter Summary ---
:1945 Author Organization [place] [address] Care Team Providers Name Role Phone Leeanne Schultz MD Primary Care Provider Encounter Details Date Type Department Care Team Description 01/24/2015 Orders Only Hematology and Oncol ogy at [facility] [place] [address] Social History Tobacco Use Types Packs/Day [...] 03/14/2022 Office Visit Dermatology [place] Edgar MD [facility] ER [address] DIANA CANAS[address]DERMAT [place], [place] [address] (Wo rk) documented as of this encounter Visit Diagnoses Not on filedocumented in this encounter Care Teams Shop Repairer Relationship Specialty Start Date End Date Leeanne Schultz MD PCP - General 10/28/13 [address] [place] [address] documented as of this encounter
--- OUTSIDE RECORDS SUMMARY | 2022-02-06 11:49 | XMS_ITS | Encounter Summary ---
:1945 Author Organization [facility] [place] [address] Care Team Providers Name Role Phone Leeanne Schultz MD Primary Care Provider Encounter Details Date Type Department Care Team Description 04/06/2015 Orders Only Hematology and Oncol ogy at [facility] [place] [address] Social History Tobacco Use Types Packs/Day [...] 03/14/2022 Office Visit Dermatology [place] Edgar MD [facility] ER DR DIANA CANAS-DERMAT [place], [place] [address] (Wo rk) documented as of this encounter Visit Diagnoses Not on filedocumented in this encounter Care Teams Administrative Services Assistant Relationship Specialty Start Date End Date Leeanne Schultz MD PCP - General 10/28/13 [address] [place], [place] [address] documented as of this encounter
--- OUTSIDE RECORDS SUMMARY | 2022-02-06 11:49 | XMS_ITS | Encounter Summary ---
:1945 Author Organization [facility] [place] [address] Care Team Providers Name Role Phone Leeanne Schultz MD Primary Care Provider Reason for Visit Reason Comments Follow-up Encounter Details Date Type Department Care Team Description 04/15/2015 Office Visit Hematology and Rox, Evy, Melanoma; Oncology at [facility] Numbness and tingling of left side of fa ce [facility] [address] [place] HEMATOLOGY/ONCOLOG [id number] Y DEPT [phone] [place], [place] [address] Social History Tobacco Use Types [...] from the original note were not included. [facility] CLINIC NOTE REFERING PHYSICIAN: Dr. Green DIAGNOSIS: [...] local excision with sentinelnode biopsy done in [place] In 2008 resected right lateral thigh thin [...] without specific intervention. She is going to [place] until the end of July during winter season. She will continue to follow-up with dermatology team. Pt was instructed to call our clinic with any new symptom or any questions. Evy Gramajo MD documented in this encounter Plan of Treatment Upcoming Encounters Date Type Specialty Care Team Description 03/14/2022 Office Visit Dermatology [place] Edgar MD [facility] ER DR DIANA CANAS-DERMAT [place], [place] [address] (Wo rk) documented as of this encounter Visit Diagnoses Diagnosis Melanoma Melanoma of skin, site unspecified Numbness and tingling of left side of fa ce documented in this encounter Care Teams Train Crew Member Relationship Specialty Start Date End Date Leeanne Schultz MD PCP - General 10/28/13 [address] [place] [address] documented as of this encounter
--- OUTSIDE RECORDS SUMMARY | 2022-02-06 11:49 | XMS_ITS | Encounter Summary ---
:1945 Author Organization [facility] [address] Care Team Providers Name Role Phone Leeanne Schultz MD Primary Care Provider Reason for Visit Reason Comments Follow-up Encounter Details Date Type Department Care Team Description 10/05/2015 [facility] [place] [facility] Seborrheic dermatitis [address] [place] [address] [facility] [place], [place] [address] Social History Tobacco Use Types [...] follow up. [place] Dr. Allen, prescribed Minocylcine 50 [...] of this 15 minute appointment were spent [id number] in counseling with this patient. Wediscussed pathophysiology, [...] 03/14/2022 Office Visit Dermatology [place] Edgar MD [facility] [address] DIANA CANAS[address]DER[address] [place], [place] [address] (Wo rk) documented as of this encounter Visit Diagnoses Diagnosis POD (perioral dermatitis) Rosacea Seborrheic dermatitis Seborrheic dermatitis, unspecified documented in this encounter Care Teams Universal Banker Relationship Specialty Start Date End Date Leeanne Schultz MD PCP - General 10/28/13 [address] [place] [address] (work) documented as of this encounter
--- OUTSIDE RECORDS SUMMARY | 2022-02-06 11:49 | XMS_ITS | Encounter Summary ---
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 ? August 2007, MIS treated in [place] ? Right lateral thigh. 6. 10/2006 Right lower back, mild to moderate DN , Excised 7. She grew up in [place] with [...] was prescribed betamethasone by her doctor in [place]. This has not helped. She notesthat she uses intranasal steroids for allergies daily. Does not currently take and antihistamine. She comments she is still having dysesthsia on the left mosque and ear area. She was seen by [...] of this 25 minute appointment were spent [id number] in counseling with this patient. Wediscussed pathophysiology, [...] by: MANDA Ndiaye MD Section of Dermatology [facility] documented in this encounter Plan of Treatment Upcoming Encounters Date Type Specialty Care Team Description 03/14/2022 Office Visit Dermatology [place] Edgar MD [facility] [address]NA[address] [place], [place] [address] (Wo rk) documented as of [...] cyst documented in this encounter Care Teams Extrusion Engineer Relationship Specialty Start Date End Date Leeanne Schultz MD PCP - General 10/28/13 [address] [place] [address] documented as of this encounter
--- OUTSIDE RECORDS SUMMARY | 2022-02-06 11:49 | XMS_ITS | Encounter Summary ---
:1945 Author Organization [facility] Address [place] [id number] Care Team Providers Name Role Phone Leeanne Schultz MD Primary Care Provider Reason for Visit MRI/CAT Scan (Routine) - Closed Specialty Diagnoses / Procedures Referred By Contact Refer red To Contact Radiology Diagnoses Melanoma Evy Gramajo MD [facility] Rad Ct Scan Procedures PET/CT Standard Plus Extremities and Head [facility] Nicolasa HEMATOLOGY/[place] [address] [place] [address] Referral ID Status Reason Start Date Expiration Date Visits Requ ested Visits Authorized [id number] Closed 01/26/2015 01/26/2016 1 1 Encounter Details Date Type Department Care Team Description 02/04/2015 Hospital Encounter Nuclear Medicine at [place] Gramajo MD [facility] DR Baldwin HEMATOLOGY/[place] [address] DEPT [phone] [place], [place] [address] (Wo rk) Social History Tobacco [...] Visit Dermatology [place] Edgar MD [facility] ER DR DIANA CANAS-DERMAT [place] [address] (Wo rk) documented as of this encounter [...] 1. ??Focus of FDG activity at the tennis professional ior tongue. This could be due to [...] calculus. Thank you for referring this patient [facility]. This report was reviewed by Mehnaz Saenz at 02/04/2015 2:04 PM Narrative 02/04/2015 2:04 PM EDT EXAMINATION: PET/CT STANDARD WITH EXTREMITIES AND HEAD CLINICAL HISTORY: melanoma TECHNIQUE: Following IV injection of 18- jzokot-7-dzvskpuccwjd (FDG) a standard uptake of approximately 60 [...] melanoma TECHNIQUE: Following IV injection of 18- srwidi-3-sldmlkohudob (FDG) a standard uptake of approximately 60 [...] calculus. Thank you for referring this patient [facility]. This report was reviewed by Mehnaz Saenz at 02/04/2015 2:04 PM Evy Gramajo MD IMG PET ORDERABLES documented in this encounter Visit Diagnoses Not on filedocumented in this encounter Care Teams Lumber Cutter Relationship Specialty Start Date End Date Leeanne Schultz MD PCP - General 10/28/13 [address] [place] [address] documented as of this encounter
--- OUTSIDE RECORDS SUMMARY | 2022-02-06 11:49 | XMS_ITS | Encounter Summary ---
:1945 Author Organization [facility] [address] Care Team Providers Name Role Phone Leeanne Schultz MD Primary Care Provider Encounter Details Date Type Department Care Team Description 10/06/2015 Telephone Dermatology at Health system Ni Zamudio MD [address] [facility] [place] [address] DIANA CANAS-DERMATOLOGY [phone] [place], [place] [address] (Wo rk) Social History Tobacco [...] Visit Dermatology [place] Edgar MD [facility] ER [address] DIANA CANAS-DERMAT [place], [place] [address] (Wo rk) documented as of this encounter Visit Diagnoses Not on filedocumented in this encounter Care Teams Paint Sprayer Sandblaster Relationship Specialty Start Date End Date Leeanne Schultz MD PCP - General 10/28/13 [address] [place] [address] documented as of this encounter
--- OUTSIDE RECORDS SUMMARY | 2022-02-06 11:49 | XMS_ITS | Encounter Summary ---
:1945 Author Organization [facility] [place] [address] Care Team Providers Name Role Phone Leeanne Schultz MD Primary Care Provider Reason for Visit Reason Onset Date Comments Medication Refill 04/26/2015 Encounter Details Date Type Department Care Team Description 04/26/2015 Refill Dermatology at [facility] Ni Zamudio MD Skin lesion [address] [facility] [place] [address] DIANA CANAS-DERMATOLOGY [phone] [place], [place] [address] (Wo rk) Social History Tobacco [...] [place] Edgar MD [facility] DR DIANA CANAS-[place]MAT [place], [place] [address] (Wo rk) documented as of this encounter Visit Diagnoses Diagnosis Skin lesion Unspecified disorder of skin and subcuta neous tissue documented in this encounter Care Teams Transition Assistant Relationship Specialty Start Date End Date Berrian, Leeanne M, MD PCP - General 10/28/13 [address] [place] [address] documented as of this encounter
--- OUTSIDE RECORDS SUMMARY | 2022-02-06 11:49 | XMS_ITS | Encounter Summary ---
:1945 Author Organization [facility] [place] [address] Care Team Providers Name Role Phone Leeanne Schultz MD Primary Care Provider Encounter Details Date Type Department Care Team Description 01/11/2018 Hospital Encounter [place] [address] Social History Tobacco Use Types Packs/Day [...] Visit Dermatology [place] Edgar MD [facility] [address] DIANA CANAS-DERMAT [place], [place] [address] (Wo rk) documented as of [...] on filedocumented in this encounter Care Teams Binder And Box Builder Relationship Specialty Start Date End Date Leeanne Schultz MD PCP - General 10/28/13 [address] [place] [address] documented as of this encounter
--- OUTSIDE RECORDS SUMMARY | 2022-02-06 11:49 | XMS_ITS | Encounter Summary ---
:1945 [place] [address] Care Team Providers Name Role Phone Leeanne Schultz MD Primary Care Provider Encounter Details Date Type Department Care Team Description 01/25/2015 Orders Only Hematology and Oncology Evy Gramajo MD Melanoma; at [facility] [place] DR Babcock fatigue [facility] Kwasi fernández HEMATOLOGY/[place] [address] DEPT [phone] [place], [place] [address] (Wo rk) Social History Tobacco [...] Office Visit Dermatology [place] Edgar MD [facility] DR DIANA CANAS-DERMAT [place], [place] [address] (Wo rk) documented as [...] Gramajo MD CHEMISTRY ORDERABLES Performing Organization Address City/[facility]/ZIP Code Phon e Number [address] CERNER MILLENNIUM (ABNORMAL) TSH (02/04/2015 12:49 PM EDT) P athologist Signature TSH 5.04 (H) 0.27 - 4.20 CERNER mcIU/mL MILLENNIUM Specimen Anatomical Collection Method Collection Time Receive d Time (Source) Location / / Volume Laterality Blood specimen 02/04/2015 12:49 5 1:11 (specimen) PM EDT PM EDT Resulting Agency Comment Spec In Lab Evy Gramajo MD CHEMISTRY ORDERABLES Performing Organization Address City/[facility]/ZIP Code Phon e Number [address] CERNER MILLENNIUM Lactate Dehydrogenase (02/04/2015 12:49 PM EDT) athologist Signature LDH 167 110 - 220 CERNER unit/L MILLENNIUM Specimen Anatomical Collection Method Collection Time Receive d Time (Source) Location / / Volume Laterality Blood specimen 02/04/2015 12:49 5 1:11 (specimen) PM EDT PM EDT Resulting Agency Comment Spec In Lab Evy Gramajo MD CHEMISTRY ORDERABLES Performing Organization Address City/[facility]/ZIP Code Phon e Number [address] CERNER MILLENNIUM (ABNORMAL) Comprehensive [...] intervals supplied above were not validated at [facility]. Results from pediatri c patients should be [...] the following links into your internet browser. [email or web address] – [email or web address] Specimen Anatomical Collection Method Collection Time Receive d Time (Source) Location / / Volume Laterality Blood specimen 02/04/2015 12:49 5 1:11 (specimen) PM EDT PM EDT Resulting Agency Comment Spec In Lab Evy Gramajo MD CHEMISTRY ORDERABLES Performing Organization Address City/State/ZIP [place] [address] [facility] documented in this encounter Visit Diagnoses Diagnosis Melanoma Melanoma of skin, site unspecified Chronic fatigue Other malaise and fatigue documented in this encounter Care Teams Bottle Selector Relationship Specialty Start Date End Date Leeanne Schultz MD PCP - General 10/28/13 [address] [place] [address] documented as of this encounter
--- OUTSIDE RECORDS SUMMARY | 2022-02-06 11:49 | XMS_ITS | Encounter Summary ---
:1945 Author Organization [facility] [place] [address] Care Team Providers Name Role Phone Leeanne Schultz MD Primary Care Provider Encounter Details Date Type Department Care Team Description 01/10/2018 Hospital Encounter [place] [address] Social History Tobacco Use Types Packs/Day [...] Office Visit Dermatology [place] Edgar MD [facility] [address] DIANA CANAS-DERMAT [place], [place] [address] (Wo rk) documented as of [...] Phon e Number DH RAD DH RAD [place], [place] documented in this encounter Visit Diagnoses Not on filedocumented in this encounter Care Teams Men'S Locker Room Attendant Relationship Specialty Start Date End Date Leeanne Schultz MD PCP - General 10/28/13 [address] [place] [address] documented as of this encounter
--- OUTSIDE RECORDS SUMMARY | 2022-02-06 11:49 | XMS_ITS | Encounter Summary ---
:1945 Author Organization [facility] [place] [address] Care Team Providers Name Role Phone Leeanne Schultz MD Primary Care Provider Encounter Details Date Type Department Care Team Description 01/09/2018 Hospital Encounter [place] [address] Social History Tobacco Use Types Packs/Day [...] [place] Edgar MD [facility] ER DR DIANA CANAS-DERMAT [place], [place] [address] (Wo rk) documented as of [...] Organization Address City/State/ZIP Code Phon e Number [place], [place] documented in this encounter Visit Diagnoses Not on filedocumented in this encounter Care Teams Equipment Operator Relationship Specialty Start Date End Date Leeanne Schultz MD PCP - General 10/28/13 [address] [place] [address] documented as of this encounter
--- OUTSIDE RECORDS SUMMARY | 2022-02-06 11:49 | XMS_ITS | Encounter Summary ---
:1945 Author Organization [facility] [place] [address] Care Team Providers Name Role Phone Leeanne Schultz MD Primary Care Provider Reason for Visit Reason Comments Skin Lesion Encounter Details Date Type Department Care Team Description 09/10/2017 [facility] Cm [place]borne (actinic Road III, keratosis) [address] [place] [address] [facility]-DERMATOLGY [place], [place] [address] Social History Tobacco Use Types [...] , Excised 7. She grew up in [place] with a history of extensive sun exposure. [...] weeks ago when they got back from [place]. It is asymptomatic. She is having knee [...] encounter. Cm Diop MD Section of Dermatology [facility] documented in this encounter Plan of Treatment Upcoming Encounters Date Type Specialty Care Team Description 03/14/2022 Office Visit Dermatology [place] Edgar MD [facility] DR DIANA CANAS-DERMAT [place], [place] [address] (Wo rk) documented as of this encounter Visit Diagnoses Diagnosis AK (actinic keratosis) Actinic keratosis documented in this encounter Care Teams Data Management Analyst Relationship Specialty Start Date End Date Leeanne Schultz MD PCP - General 10/28/13 [address] [place] [address] documented as of this encounter
--- OUTSIDE RECORDS SUMMARY | 2022-02-06 11:49 | XMS_ITS | Encounter Summary ---
:1945 Author Organization [facility] [place] [address] Care Team Providers Name Role Phone Leeanne Schultz MD Primary Care Provider Encounter Details Date Type Department Care Team Description 11/25/2014 Telephone Dermatology at [facility] Ni Zamudio MD [address] [facility] [place] [address] [facility]-DERMATOLOGY [phone] [place] [address] (Wo rk) Social History Tobacco Use Types [...] MD [facility] [address] DIANA CANAS-DERMAT [place], [place] [address] (Wo rk) documented as of this encounter Visit Diagnoses Not on filedocumented in this encounter Care Teams Spice Fumigator Relationship Specialty Start Date End Date Leeanne Schultz MD PCP - General 10/28/13 [address] [place] [address] documented as of this encounter
--- OUTSIDE RECORDS SUMMARY | 2022-02-06 11:49 | XMS_ITS | Encounter Summary ---
:1945 Author Organization [facility] [place] [address] Care Team Providers Name Role Phone Leeanne Schultz MD Primary Care Provider Reason for Referral Consultation (Routine) - Closed Specialty Diagnoses / Procedures Referred By Contact Refer red To Contact Hematology and Oncology Diagnoses History of melanoma Ni Zamudio MD Shirai, Keisuke, MD [facility] ENTER DR DR ORTIZ HEMATOLOGY/ONCOL OGKaz RD-DERMATOLOGY [place] [address] [place] [address] Fax: Referral ID Status Reason Start Date Expiration Date Visits V isits Requested Authorized [id number] Closed Consult, 01/20/2015 01/20/2016 3 3 Test & Treat Reason for Visit Reason Comments Skin Check Encounter Details Date Type Department Care Team Description 01/19/2015 Follow-Up Dermatology at [place] MD History of melanoma [facility] [address] [place] [address] [address] [phone] [address]-DERMATOLOGY [place] [address] (Wo rk) Social History Tobacco Use Types [...] , Excised 7. She grew up in [place] with a history of extensive sun exposure. [...] encounter. Ni Zamudio MD Section of Dermatology [facility] documented in this encounter Plan of Treatment Upcoming Encounters Date Type Specialty Care Team Description 03/14/2022 Office Visit Dermatology [place] Edgar MD [facility] DR DIANA CANAS-DERMAT [place], [place] [address] (Wo rk) Scheduled Referrals Name Type Priority Associated Order Schedule Diagnoses Referral to Outpatient Referral Routine History of melanoma O rdered: Hematology and 01/20/2015 Oncology documented as of this encounter Visit Diagnoses Diagnosis History of melanoma Personal history of malignant melanoma o f skin documented in this encounter Care Teams Felt Washing Machine Tender Relationship Specialty Start Date End Date Leeanne Schultz MD PCP - General 10/28/13 [address] [place] [address] documented as of this encounter
--- OUTSIDE RECORDS SUMMARY | 2022-02-06 11:49 | XMS_ITS | Encounter Summary ---
:1945 Author Organization [facility] [place] [place] [address] Care Team Providers Name Role Phone Kajal Schultz MD Primary Care Provider Reason for Visit Reason Comments Procedure melanoma - left lateral arm Encounter Details Date Type Department Care Team Description 11/19/2014 Procedure visit Dermatology at [facility] Ni Zamudio, Melanoma (Primary Road Dx) [address] [place], [place] CENTER [address] [facility] [phone] RD-DERMATOLOGY [place] [address] Social History Tobacco Use Types Packs/Day Years [...] Ni Zamudio MD during the day at [phone] Nurse: Mica [phone] After 5 PM and on weekends, please call the hospital number , and ask for the Card Checker timber poisoner. 2 documented in this encounter Progress Notes [...] scar. Pathology Report: Rec Date: 10/15/2014 LOC: [facility] SURGICAL PATHOLOGY ---Pathologic Diagnosis--- A - [...] 2. Procedure Notes: Surgeon: Ni Zamudio MD Senior Systems Software Engineer:Mica Patton LPN A. Excision of lesion, excision [...] months Ni Zamudio MD Section of Dermatology [facility] documented in this encounter Plan of Treatment Upcoming Encounters Date Type Specialty Care Team Description 03/14/2022 Office Visit Dermatology [place] Edgar MD [facility] DR DIANA CANAS-DERMAT [place], [place] [address] (Wo rk) Scheduled Orders Name [...] Value Ref Test Analysis Performed At [facility] Range Method Time Signature Surgical CERNER Pathology ? [facility] Report ? Provider: ?? LORNA, NI M ? Pt. Name: ?? HAJA ER, KAJAL Ureña ? Acc #: ?[id number] ? Pt. ? Col Date: ?? 5 [...] adjacent to scar at biopsy s e [id number] ? Clinical Diagnosis: ? Melanoma Specimen (Source) Anatomical Collection Method Collection Time Re ceived Time Location / / Volume Laterality 11/19/2014 4:42 PM EDT Ni Zamudio MD PATHOLOGY/CYTOLOGY ORDERABLE S Performing Organization Address [facility]/ZIP Code Phon e Number [address] [facility] Specimen to Pathology (NON-OR) (11/19/2014 4:21 PM EDT) Specimen Anatomical Collection Method Collection Time Receive d Time (Source) Location / / Volume Laterality AP Specimen 11/19/2014 4:21 PM 201 5 4:21 EDT PM EDT Narrative CERNER MILLENNIUM - 11/19/2014 4:21 PM E DT Specimen requisition ordered. ??Separate Pathology report to follow Ni Zamudio MD PATHOLOGY/CYTOLOGY ORDERABLE S Performing Organization Address [facility]/ZIP [facility] [place] [address] CERNER MILLENNIUM documented in this encounter Visit Diagnoses Diagnosis Melanoma - Primary Melanoma of skin, site unspecified documented in this encounter Care Teams Boiler Maker Relationship Specialty Start Date End Date Kajal Schultz MD PCP - General 10/28/13 [address] [place] [address] documented as of this encounter
--- OUTSIDE RECORDS SUMMARY | 2022-02-06 11:49 | XMS_ITS | Encounter Summary ---
:1945 Author Organization [facility] [place] [address] Care Team Providers Name Role Phone Leeanne Schultz MD Primary Care Provider Encounter Details Date Type Department Care Team Description 10/24/[address] [facility] Cm [place] III, [address] [place] [address] [facility] [phone] [facility]DERMAT [place] [address] (Wo rk) Social History Tobacco Use Types [...] planned. Cm [place] MD Section of Dermatology [facility] documented in this encounter Plan of Treatment Upcoming Encounters Date Type Specialty Care Team Description 03/14/2022 Office Visit Dermatology [place] Edgar MD [facility] [address] DIANA MEDINA-DERMAT [place], [place] [address] (Wo rk) documented as of this encounter Visit Diagnoses Not on filedocumented in this encounter Care Teams Customer Security Clerk Relationship Specialty Start Date End Date Leeanne Schultz MD PCP - General 10/28/13 [address] [place] [address] documented as of this encounter
--- OUTSIDE RECORDS SUMMARY | 2022-02-06 11:49 | XMS_ITS | Encounter Summary ---
:1945 [place] [address] Care Team Providers Name Role Phone Leeanne Schultz MD Primary Care Provider Reason for Visit Reason Comments Skin Check Encounter Details Date Type Department Care Team Description 10/22/2016 [facility] of uncertain behavior of skin (Primary Dx); [place] FONSECA MD Skin lesion of right arm; [address] [facility] SK (seborrheic keratosis); [place] [address] Lentisushant; [phone] [facility] Multiple benign nevi; RD-DERMATOLGY History of melanoma [place], [place] [address] Social History Tobacco Use Types [...] or concerns, please call the office at [phone]. If it is after 5PM, or a holiday or weekend, please call [phone] and ask for the Human Resources Manager Manufacturing on-call. documented in this encounter Progress Notes Mónica Dozier LPN - 10/22/2016 11:00 AM EDT Images from the original note were not included. DERMATOLOGY ESTABLISHED PATIENT CLINIC NOTE Date of service: 10/22/2016 eLeanne Bush : 1945 Provider: Cm [place] MD [...] , Excised 7. She grew up in [place] with a history of extensive sun exposure. [...] spots and is checked regularly by a mushroom packer. She is unaware of any new spots [...] encounter. Cm [place] MD Section of Dermatology [facility] documented in this encounter Plan of Treatment Upcoming Encounters Date Type Specialty Care Team Description 03/14/2022 Office Visit Dermatology [place] Edgar MD [facility] DR DIANA CANAS-DERMAT [place], [place] [address] (Wo rk) documented as of [...] Test Analysis Performed At [facility] gist Range Method Time Signature Surgical [id number] ?Location: [facility] Pathology CRIVITZ Report The signing pathologist has (i) examined [...] Organization Address City/State/ZIP Code Phon e Number [place] [id number] [address]OSPITAL LAB[address] Specimen to Pathology (NON-OR) (10/22/2016 11:37 AM EDT) Specimen Anatomical Collection Method Collection Time Receive d Time (Source) Location / / Volume Laterality AP Specimen 10/22/2016 11:37 10/22/2016 3:47 AM EDT PM EDT Narrative [facility] LAB[facility] - 10/22/2016 3:48 PM EDT Specimen requisition ordered. ??Separate Pathology report to follow Resulting Agency Comment Spec In Lab Cm [place] III, MD PATHOLOGY/CYTOLOGY ORDERABLE S Performing Organization Address City/State/[place] [address] documented in this encounter [...] skin documented in this encounter Care Teams Forensic Artist Relationship Specialty Start Date End Date Leeanne Schultz MD PCP - General 10/28/13 [address] [place] [address] documented as of this encounter
--- OUTSIDE RECORDS SUMMARY | 2022-02-06 11:49 | XMS_ITS | Encounter Summary ---
:1945 Author Organization [facility] [place] [address] Care Team Providers Name Role Phone Leeanne Schultz MD Primary Care Provider Encounter Details Date Type Department Care Team Description 02/04/2015 Hospital Encounter Hematology and Oncology at [facility]; [facility] [place] [address] Social History Tobacco Use Types Packs/Day [...] Team Description 03/14/2022 Office Visit Dermatology [place] Edgra MD [facility] ER [address] DIANA CANAS-DERMAT [place], [place] [address] (Wo rk) documented as of [...] Organization Address City/State/ZIP Code Phon e Number [place] [phone] CERNER MILLENNIUM (ABNORMAL) Hemogram [...] MPV 9.7 9.0 - 12.0 CERNER fL [facility] Specimen Anatomical Collection Method Collection Time Receive d Time (Source) Location / / Volume Laterality Blood specimen 02/04/2015 12:49 5 1:11 (specimen) PM EDT PM EDT Resulting Agency Comment Spec In Lab Evy Gramajo MD HEMATOLOGY ORDERABLES Performing Organization Address City/State/ZIP Code Phon e Number [address] CERNER MILLENNIUM T4, free (02/04/2015 12:49 PM EDT) athologist Signature Free T4 1.09 0.93 - 1.70 CERNER ng/dL [facility] Specimen Anatomical Collection Method Collection Time Receive d Time (Source) Location / / Volume Laterality Blood specimen 02/04/2015 12:49 5 1:11 (specimen) PM EDT PM EDT Resulting Agency Comment Spec In Lab Evy Gramajo MD CHEMISTRY ORDERABLES Performing Organization Address City/[facility]/ZIP Code Phon e Number [address] [facility] MILLENNIUM (ABNORMAL) TSH (02/04/2015 12:49 PM EDT) athologist Signature TSH 5.04 (H) 0.27 - 4.20 CERNER mcIU/mL [facility] Specimen Anatomical Collection Method Collection Time Receive d Time (Source) Location / / Volume Laterality Blood specimen 02/04/2015 12:49 5 1:11 (specimen) PM EDT PM EDT Resulting Agency Comment Spec In Lab Evy Gramajo MD CHEMISTRY ORDERABLES Performing Organization Address City/State/[place] [address] [facility] Lactate Dehydrogenase (02/04/2015 12:49 PM EDT) athologist Signature LDH 167 110 - 220 CERNER unit/L MILLENNIUM Specimen Anatomical Collection Method Collection Time Receive d Time (Source) Location / / Volume Laterality Blood specimen 02/04/2015 12:49 5 1:11 (specimen) PM EDT PM EDT Resulting Agency Comment Spec In Lab Evy Gramajo MD CHEMISTRY ORDERABLES Performing Organization Address City/State/[place] [address] CERNER MILLENNIUM (ABNORMAL) Comprehensive [...] intervals supplied above were not validated at [facility]. Results from pediatri c [...] the following links into your internet browser. [email or web address] [email or web address] Specimen Anatomical Collection Method Collection Time Receive d Time (Source) Location / / Volume Laterality Blood specimen 02/04/2015 12:49 5 1:11 (specimen) PM EDT PM EDT Resulting Agency Comment Spec In Lab Evy Gramajo MD CHEMISTRY ORDERABLES Performing Organization Address City/State/[place] [address] GUILLERMINA WILKS documented in this encounter Visit Diagnoses Diagnosis Melanoma Melanoma of skin, site unspecified Chronic fatigue Other malaise and fatigue documented in this encounter Care Teams Literacy Coordinator Relationship Specialty Start Date End Date Leeanne Schultz MD PCP - General 10/28/13 [address] [place] [address] documented as of this encounter
--- OUTSIDE RECORDS SUMMARY | 2022-02-06 11:49 | XMS_ITS | Encounter Summary ---
:1945 Author Organization [facility] [place] [address] Care Team Providers Name Role Phone Leeanne Schultz MD Primary Care Provider Encounter Details Date Type Department Care Team Description 01/09/2018 Hospital Encounter [place] [address] Social History Tobacco Use Types Packs/Day [...] Visit Dermatology [place] Edgar MD [facility] ER DR DIANA CANAS-DERMAT [place], [place] [address] (Wo rk) documented as of [...] Organization Address City/State/ZIP Code Phon e Number [place], [place] documented in this encounter Visit Diagnoses Not on filedocumented in this encounter Care Teams Induction Furnace Operator Relationship Specialty Start Date End Date Leeanne Schultz MD PCP - General 10/28/13 [address] [place] [address] documented as of this encounter
--- OUTSIDE RECORDS SUMMARY | 2022-02-06 11:49 | XMS_ITS | Encounter Summary ---
:1945 Author Organization [facility] [place] [address] Care Team Providers Name Role Phone Leeanne Schultz MD Primary Care Provider Encounter Details Date Type Department Care Team Description 01/09/2017 Telephone Dermatology at [facility] Cm Kaminski III, [address] [place] [address] [facility] [phone] DIANA MEDINA-DERMAT [place] [phone] (Wo rk) Social History Tobacco Use Types [...] planned. Cm Kaminski MD Section of Dermatology [facility] documented in this encounter Plan of Treatment Upcoming Encounters Date Type Specialty Care Team Description 03/14/2022 Office Visit Dermatology [place] Edgar MD [facility] ER DR DIANA MEDINA-DERMAT [place], [place] [address] (Wo rk) documented as of this encounter Visit Diagnoses Not on filedocumented in this encounter Care Teams Mainframe Systems Programmer Relationship Specialty Start Date End Date Leeanne Schultz MD PCP - General 10/28/13 [address] [place] [address] documented as of this encounter
--- OUTSIDE RECORDS SUMMARY | 2022-02-06 11:49 | XMS_ITS | Encounter Summary ---
:1945 Author Organization [facility] [place] [address] Care Team Providers Name Role Phone Leeanne Schultz MD Primary Care Provider Reason for Visit Reason Onset Date Comments Other 04/04/2015 telephone Encounter Details Date Type Department Care Team Description 04/04/2015 Telephone Dermatology at [place] Lucas MD Other (telephone) [facility] [address] [facility] [place] [address] [place] [address] [phone] (Wo rk) Social History Tobacco Use Types [...] and would know what she was requesting. [phone]. Patient is hoping to be seen in April. She is going out of state in May. documented in this encounter Plan of Treatment Upcoming Encounters Date Type Specialty Care Team Description 03/14/2022 Office Visit Dermatology [place] Edgar MD [facility] ER DR DIANA CANAS-DERMAT [place], [place] [address] (Wo rk) documented as of this encounter Visit Diagnoses Diagnosis Family history of melanoma Family history of other specified malign ant neoplasm documented in this encounter Care Teams Interactive Media Designer Relationship Specialty Start Date End Date Leeanne Schultz MD PCP - General 10/28/13 [address] [place] [address] documented as of this encounter
--- OUTSIDE RECORDS SUMMARY | 2022-02-06 11:50 | XMS_ITS | Encounter Summary ---
:1945 Author Organization [facility] [place] [address] Care Team Providers Name Role Phone Leeanne Schultz MD Primary Care Provider Reason for Visit Reason Comments Other Encounter Details Date Type Department Care Team Description 07/06/2014 Telephone Dermatology at [facility] Ni Zamudio MD [address] [facility] [place] [address] [facility]-DERMATOLOGY [phone] [place], [place] [address] (Wo rk) Social History Tobacco [...] [facility] DR DIANA CANAS-DERMAT [place], [place] [address] (Wo rk) documented as of this encounter Visit Diagnoses Not on filedocumented in this encounter Care Teams Track Rider Relationship Specialty Start Date End Date Leeanne Schultz MD PCP - General 10/28/13 [address] [place] [address] documented as of this encounter
--- OUTSIDE RECORDS SUMMARY | 2022-02-06 11:50 | XMS_ITS | Encounter Summary ---
:1945 [place] [address] Care Team Providers Name Role Phone Leeanne Schultz MD Primary Care Provider Encounter Details Date Type Department Care Team Description 06/29/2014 External [place] [address] Social History Tobacco Use Types Packs/Day [...] 03/14/2022 Office Visit Dermatology [place] Edgar MD [facility] DR DIANA CANAS-DERMAT [place], [place] [address] (Wo rk) documented as of this encounter Visit Diagnoses Not on filedocumented in this encounter Care Teams Train Attendant Relationship Specialty Start Date End Date Leeanne Schultz MD PCP - General 10/28/[address] [place] [address] documented as of this encounter
--- OUTSIDE RECORDS SUMMARY | 2022-02-06 11:50 | XMS_ITS | Encounter Summary ---
:1945 Author Organization [place] [address] Care Team Providers Name Role Phone Mira Marino MD Primary Care Provider Reason for Visit Reason Comments Skin Check h/o melanoma x 3 Encounter Details Date Type Department Care Team Description 11/01/2010 Follow-Up Dermatology Ni Zamudio MD Benign neoplasm of skin of trunk, except scrotum (Primary Dx); [facility] Per jenny history of malignant melanoma of skin Drive [place] [phone] [facility] [phone] RD-DERMATOLOGY [place] [phone] (Wo rk) Social History Tobacco Use Types [...] August 2007, she had MIS treated in [place] ? Right lateral thigh. 6. 10/2006 [...] raised. She has seen multiple providers at [facility] for skin check; this is her first [...] changes: Ni Zamudio MD Section of Dermatology [facility] documented in this encounter Plan of Treatment Upcoming Encounters Date Type Specialty Care Team Description 03/14/2022 Office Visit Dermatology [place] Edgar MD [facility] [address] DIANA CANAS-DERMAT [place], [place] [address] (Wo rk) documented as of this encounter Visit Diagnoses Diagnosis Benign neoplasm of skin of trunk, except scrotum - Primary Personal history of malignant melanoma o f skin documented in this encounter Care Teams Trap Puller Relationship Specialty Start Date End Date Mira Marino MD PCP - General 04/18/10 10/27/13 H[facility]PITALIST SERVICES [address] [place] [address] [place] [address] documented as of this encounter
--- OUTSIDE RECORDS SUMMARY | 2022-02-06 11:50 | XMS_ITS | Encounter Summary ---
:1945 Author Organization [facility] [place] [address] Care Team Providers Name Role Phone Leeanne Schultz MD Primary Care Provider Encounter Details Date Type Department Care Team Description 10/22/2014 Telephone Dermatology at [facility] Ni Zamudio MD [address] [facility] [address] [facility]-DERMATOLOGY [phone] [place] [address] (Wo rk) Social History Tobacco Use Types [...] Visit Dermatology Edgar, [place] J , MD [facility] DR DIANA CANAS-DERMAT [place], [place] [address] (Wo rk) documented as of this encounter Visit Diagnoses Not on filedocumented in this encounter Care Teams Hearing And Speech Assistant Relationship Specialty Start Date End Date Leeanne Schultz MD PCP - General 10/28/13 [address] [place] [address] documented as of this encounter
--- OUTSIDE RECORDS SUMMARY | 2022-02-06 11:50 | XMS_ITS | Encounter Summary ---
:1945 Author Organization [facility] [place] [address] Care Team Providers Name Role Phone Leeanne Schultz MD Primary Care Provider Reason for Visit Reason Onset Date Comments Other 01/19/2014 Telephone Call Encounter Details Date Type Department Care Team Description 01/19/2014 [facility] Geneva Goldberg MD [address] [place] [address] [facility]-DERMATOLOGY [place], [place] [address] (Wo rk) Social History Tobacco Use Types Packs/Day Years Used Date Former Smoker Smokeless Tobacco: Never Used Alcohol Use Standard Drinks/Week Comments Yes 7 (1 standard drink = 0.6 oz pure alcoho l) Sex Assigned at Date Recorded Female 10/02/2020 6:58 PM EDT documented as of this encounter Miscellaneous Notes Telephone Encounter - Michael Cee - 01/19/2014 10:04 AM EDT This business writer spoke with Leeanne Bush. Patient declined [...] [facility] [address] DIANA CANAS-DERMAT [place], [place] [address] (Wo rk) documented as of this encounter Visit Diagnoses Not on filedocumented in this encounter Care Teams Cloth Inspector Relationship Specialty Start Date End Date Leeanne Schultz MD PCP - General 10/28/13 [address] [place] [address] documented as of this encounter
--- OUTSIDE RECORDS SUMMARY | 2022-02-06 11:50 | XMS_ITS | Encounter Summary ---
:1945 Author Organization [facility] [place] [address] Care Team Providers Name Role Phone Mira Marino MD Primary Care Provider Reason for Visit Reason Onset Date Comments Other 02/14/2011 PA for Tretinoin 0.0 25% cream Encounter Details Date Type Department Care Team Description 02/14/2011 Telephone Dermatology Ni Zamudio MD Other (PA for Tretinoin [facility] 0.0 25% cream) Drive [place] [id number] [facility] [phone] RD-DERMATOLOGY [place] [address] (Wo rk) Social History Tobacco Use Types [...] [facility] DR DIANA CANAS-DERMAT [place], [place] [address] (Wo rk) documented as of this encounter Visit Diagnoses Not on filedocumented in this encounter Care Teams Status Controller Relationship Specialty Start Date End Date Mira Marino MD PCP - General 04/18/10 10/27/13 HOSPITALIST SERVICES [address] [place] [address] [place] [address] documented as of this encounter
--- OUTSIDE RECORDS SUMMARY | 2022-02-06 11:50 | XMS_ITS | Encounter Summary ---
:1945 Author Organization [facility] [address] Care Team Providers Name Role Phone Mira Marino MD Primary Care Provider Reason for Visit Reason Onset Date Comments Other 10/23/2012 telephone call Encounter Details Date Type Department Care Team Description 10/23/[address] [facility] Eleanor Vazquez (telephone call Road Dara Brito MD ) [address] [place] [address] [facility] [place] [address] Social History Tobacco Use Types Packs/Day Years [...] Dr. Alvarez, Please call Ms. Bush at [phone] regarding her biopsy result. Thank you, Mavis documented in this encounter Plan of Treatment Upcoming Encounters Date Type Specialty Care Team Description 03/14/2022 Office Visit Dermatology [place] Edgar MD [facility] [address] DIANA CANAS-DERMAT [place], [place] [address] (Wo rk) documented as of this encounter Visit Diagnoses Not on filedocumented in this encounter Care Teams Remodeler Relationship Specialty Start Date End Date Mira Marino MD PCP - General 04/18/10 10/27/13 HOSPITALIST SERVICES [address] [place] [address] [place] [address] documented as of this encounter
--- OUTSIDE RECORDS SUMMARY | 2022-02-06 11:50 | XMS_ITS | Encounter Summary ---
:1945 Author Organization [facility] [place] [address] Care Team Providers Name Role Phone Leeanne Schultz MD Primary Care Provider Reason for Visit Reason Onset Date Comments Referral 10/13/2013 Encounter Details Date Type Department Care Team Description 10/13/2013 Telephone Orthopaedics at [facility] Donnell Leiva MD Referral [facility] [place] [address] ORTHOPAEDIC SURGERY [phone] [place], [place] [address] (Wo rk) Social History Tobacco Use Types Packs/Day Years Used Date Former Smoker Sex Assigned at Date Recorded Female 10/02/2020 6:58 PM EDT documented as of this encounter Miscellaneous Notes Telephone Encounter - Cheyenne Hernandez - 10/13/2013 1:21 PM EDT Ask patient to verify the following: Full name: Leeanne Bush : 1945 Phone number: [phone] (home) Mailing address: o [address] 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 ALMOST A YEAR Has anyone ever seen you before for this issue? YES Have you had any of the following studies for this issue? ?? X-Ray YES - [place] ?? MRI YES - [facility] ?? CT Scan ?? LABS PODIATRISTS DR. PEREZ - [facility] - PH. [phone] DR. SPENCER MODI - [facility] - winter DR. SERGEI PATTON - [facility] - MOST RECENT Have you seen an Orthopaedic surgeon for the this issue? Have you ever had surgery for this issue? ONLY R FOOT - If YES and different than above: Who performed surgery? DR. SERGEI CARTER Where did you have the surgery (facility)? [facility] When? 2003 Phone # Fax# If patient is implanted with hardware fixation or joint prosthesis retrieve OPERATIVE REPORT and IMPLANT STICKERS. documented in this encounter Plan of Treatment Upcoming Encounters Date Type Specialty Care Team Description 03/14/2022 Office Visit Dermatology [place] Edgar MD [facility] DR DIANA CAANS-DERMAT [place], [place] [address] (Wo rk) documented as of this encounter Visit Diagnoses Not on filedocumented in this encounter Care Teams Design Engineering Manager Relationship Specialty Start Date End Date Leeanne Schultz MD PCP - General 10/28/13 [address] [place] [address] documented as of this encounter
--- OUTSIDE RECORDS SUMMARY | 2022-02-06 11:50 | XMS_ITS | Encounter Summary ---
:1945 [place] [address] Care Team Providers Name Role Phone Leeanne Schultz MD Primary Care Provider Encounter Details Date Type Department Care Team Description 07/02/2014 Hospital Encounter Pulmonology at [facility], PFT COPD ([facility] Leeanne Schultz MD [address] [place], [place] [id number] obstructive Drive pulmonary disease) [place] [address] Social History Tobacco Use Types Packs/Day Years [...] mg by mouth 0 09/03 Tablet nightly. fluoruracil (CARAC) 0.5 % Apply to [...] Visit Dermatology [place] Edgar MD [facility] [address] DIANA CANAS-DERMAT [place] [address] (Wo rk) documented as of this encounter [...] classified documented in this encounter Care Teams Software Systems Engineer Relationship Specialty Start Date End Date Leeanne Schultz MD PCP - General 10/28/13 [address] [place] [address] documented as of this encounter
--- OUTSIDE RECORDS SUMMARY | 2022-02-06 11:50 | XMS_ITS | Encounter Summary ---
:1945 Author Organization [facility] [place] [address] Care Team Providers Name Role Phone Leeanne Schultz MD Primary Care Provider Encounter Details Date Type Department Care Team Description 07/30/2014 Ancillary Appointment Dermatology at [facility] [address] Zam[address] MD [address] [place] [address] [facility] [place]-DERMATOLOGY [place], [place] [address] Social History Tobacco Use Types [...] Dermatology [place] Edgar MD [facility] ER DR DIANA MEDINA-DERMAT [place], [place] [address] (Wo rk) documented as of this encounter Visit Diagnoses Not on filedocumented in this encounter Care Teams Media Relations Coordinator Relationship Specialty Start Date End Date Leeanne Schultz MD PCP - General 10/28/13 [address] [place] [address] documented as of this encounter
--- OUTSIDE RECORDS SUMMARY | 2022-02-06 11:50 | XMS_ITS | Encounter Summary ---
:1945 Author Organization [facility] [place] [address] Care Team Providers Name Role Phone Leeanne Schultz MD Primary Care Provider Reason for Visit Reason Comments Advice Only Encounter Details Date Type Department Care Team Description 07/14/2014 Office Visit Dermatology at [facility], DR BALL Fat deposits [address] [place] [address] Social History Tobacco Use Types Packs/Day Years [...] 03/14/2022 Office Visit Dermatology [place] Edgar MD [facility] DR DIANA CANAS-DERMAT [place], [place] [address] (Wo rk) documented as of this encounter Visit Diagnoses Diagnosis Fat deposits Localized adiposity documented in this encounter Care Teams Operational Risk Analyst Relationship Specialty Start Date End Date Leeanne Schultz MD PCP - General 10/28/13 [address] [place] [address] documented as of this encounter
--- OUTSIDE RECORDS SUMMARY | 2022-02-06 11:50 | XMS_ITS | Encounter Summary ---
:1945 Author Organization [place] [address] Care Team Providers Name Role Phone Leeanne Schultz MD Primary Care Provider Reason for Visit Reason Onset Date Comments Pre Procedure Call 11/11/2014 Encounter Details Date Type Department Care Team Description 11/11/[address] [facility] Mica Patton LPN Pre Procedure Call [address] [place] [address] Social History Tobacco Use Types Packs/Day [...] 03/14/2022 Office Visit Dermatology [place] Edgar MD [facility] ER DR DIANA CANAS-DERMAT [place], [place] [address] (Wo rk) documented as of this encounter Visit Diagnoses Not on filedocumented in this encounter Care Teams Soa Integration Developer Relationship Specialty Start Date End Date Leeanne Schultz MD PCP - General 10/28/13 [address] [place] [address] documented as of this encounter
--- OUTSIDE RECORDS SUMMARY | 2022-02-06 11:50 | XMS_ITS | Encounter Summary ---
:1945 [place] [address] Care Team Providers Name Role Phone Mira Marino MD Primary Care Provider Reason for Visit Reason Comments Skin Check Encounter Details Date Type Department Care Team Description 04/07/2012 Follow-Up Dermatology at [facility] Grover Zamudio MD Neoplasm of uncertain behavior, site uns pecified (Primary Dx); [facility] Actinic keratosis [address] [place] [address] [facility] [phone] RD-DERMATOLOGY [place], [place] [address] (Wo rk) Social History Tobacco [...] August 2007, she had MIS treated in [place] ? Right lateral [...] changes: Ni Zamudio MD Section of Dermatology [facility] documented in this encounter Plan of Treatment Upcoming Encounters Date Type Specialty Care Team Description 03/14/2022 Office Visit Dermatology [place] Edgar MD [facility] [address] DIANA CANAS-DERMAT [place], [place] [address] (Wo rk) documented as of [...] Component Value Ref Test Analysis Performed At [facility] gist Range Method Time Signature Surgical CERNER Pathology ? [facility] Report ? Provider: ?? NI ZAMUDIO ? Pt. Name: ?? HAJA CLARK, KAJAL R ? Acc #: ?[id number] ? Pt. ? Col Date: ?? 2 [...] cm, callahan. ? Sections/Processing: ??(T1) ??aje/SNS ? [facility] ? Provider: ?? NI ZAMUDIO ? Pt. Name: ?? HAJA CLARK, KAJAL Ureña ? Acc #: ?[id number] ? Pt. ? Col Date: ?? 2 [...] MD PATHOLOGY/CYTOLOGY ORDERABLE S Performing Organization Address City/[facility]/[place] [address] Andrew Alliance Specimen to Pathology (NON-OR) (04/07/2012 12:52 PM EST) Specimen Anatomical Collection Method Collection Time Receive d Time (Source) Location / / Volume Laterality AP Specimen 04/07/2012 12:52 04/07/2012 PM EST 12:52 PM EST Narrative CERNER MILLENNIUM - 04/07/2012 12:52 PM EST Specimen requisition ordered. ??Separate Pathology report to follow Ni Zamudio MD PATHOLOGY/CYTOLOGY ORDERABLE S Performing Organization Address City/[facility] [place] [address] Andrew Alliance documented in this encounter Visit Diagnoses Diagnosis Neoplasm of uncertain behavior, site uns pecified - Primary Actinic keratosis documented in this encounter Care Teams Lathe Scalper Operator Relationship Specialty Start Date End Date Mira Marino MD PCP - General 04/18/10 10/27/13 [facility] [address] [place] [address] [place] [address] documented as of this encounter
--- OUTSIDE RECORDS SUMMARY | 2022-02-06 11:50 | XMS_ITS | Encounter Summary ---
:1945 [place] [address] Care Team Providers Name Role Phone Kajal Schultz MD Primary Care Provider Reason for Visit Reason Comments Skin Check Encounter Details Date Type Department Care Team Description 07/14/2014 Follow-Up Dermatology at [facility] Grover Zamudio MD Skin lesion; [facility] Personal history of malignan t melanoma of skin [address] [place] [address] [facility] [phone] RD-DERMATOLOGY [place], [place] [address] (Wo rk) Social History Tobacco Use Types Packs/Day Years Used Date Former Smoker Smokeless Tobacco: Never Used Alcohol Use Standard Drinks/Week Comments Yes 7 (1 standard drink = 0.6 oz pure alcoho l) Sex Assigned at Date Recorded Female 10/02/2020 6:58 PM EDT documented as of this encounter Patient Instructions Patient InstructionsSeverTracy rosales LPN - 07/14/2014 7:57 AM EDT Treatment and Wound Care Instructions Your Diagnosis Today: Other____xx____ Your Treatment Today: _xx____ You had a biopsy of your skin, which is a removal of tissue for examination under a microscope. There are two types of biopsies: A. Shave biopsy which will heal without sutures. The area often appears red around the edge of the wound. This is normal. Allow 3-6 weeks for would to heal. __ Please allow 1-2 weeks for the biopsy results to return. Your physician or nurse will contact you with the results by phone or letter, follow up will be discussed at that time. Wound Care Instructions 1. You will need to keep the wound dry and covered for _24 hours____ 2. Remove bandage and clean the area with soap and water, gently pat the area dry 3. Apply small amount of Vaseline to the areas, cover with a Band-Aid until wound is healed 4. A small amount of yellow drainage is part of normal healing, the wound is not considered healed until the drainage stops. It may take up to 3-4 weeks depending on the area biopsied. 5. Signs of infection include increased tenderness, pain, drainage or redness that becomes hard or swollen surrounding the wound 6. If bleeding occurs hold pressure for 15 minutes, if still bleeding call our office 7. Please call our office if you have further questions or concerns. [phone] After 5PM, holidays and weekends call [phone] and ask for the Emergency Telecommunications Dispatcher concert promoter. Doctor: Ni Zamudio MD Nurse: Tracy Jj LPN documented in this encounter Progress Notes Melani Snyder - 07/16/2014 2:36 PM EDT Quick Note: -Dr. Zamudio will discuss pathology results with patient today at her scheduled appointment Ni Zamudio MD - 07/14/2014 7:18 AM EDT Images from the original note were not included. DERMATOLOGY ESTABLISHED PATIENT CLINIC NOTE Date of service: 07/14/2014 Kajal Bush : 1945 Provider: Ni Zamudio [...] , Excised 7. She grew up in [place] with a history of extensive sun exposure. [...] specimen. 16. 03/04/13- DF. unit or cyst. 17. 06/30/14 - ---Pathologic Diagnosis---Melanoma x 2 A - left upper arm, Malignant melanoma, predominantly lentigo maligna type. 0.18 mm, clarks level II, pos margins. B - right forearm, Malignant melanoma, mixed features of superficial spreading and lentigo maligna types. 0.24mm, liana's level II, pos margins 18. 07/14/14- Biopsy on right shoulder and left upper mid thigh HPI Kajal Bush is a 68 y.o. year old female. Presents today for a full skin check. C/o a scab, non-healing lesion on her right upper shoulder, present for 2 months. She had some actinic keratosis treated at last visit, with LN2 on her right upper vermilion lip, andleft cheek. She had a recent skin exam where 2 new primary melanomas were diagnosed. This has her feeling a bit uneasy so she returns early for another full skin exam. She is interested in coolsculpting and would like to discuss treatment options. Amy Quiroz RN to see patient afterwards. ADR: Allergies Allergen Reactions ??? Shellfish Derived [...] complaints EXAM General: NAD, pleasant, cooperative Skin: A total body skin exam except for the genitalia was performed. This includes examination of the skinof the face, ears, neck, chest, axillae, left and right upper and lower extremities, hands, feet, abdomen, back, and buttocks. The genitalia, perineum, and perianal areas were not examined. Significant skin findings: Significant skin findings: A. 0.3cm Heme-crusted papule on right superior shoulder. B. Slightly irregularly pigmented 0.4cm brown macule on left upper mid thigh C. Blanchable pink patch on Left alex C. 0.2-0.3cm scaly irregular pink papule(s) on left cheek and forehead, D. Multiple 0.4-0.6 cm brown papules with waxy, stuck on appearance. Milia-like cysts, comedone-likeopenings and/or fissuring on dermoscopy. ASSESSMENT/PLAN: A. Nevus R/o atypia Procedure: Skin biopsy by shave technique Location: right superior shoulder Discussed indications for procedure and expectations including [...] reviewed. Follow-up based on pathology results. B. Nevus r/o atypia Procedure: Skin biopsy by shave technique Location: left upper mid thigh Discussed indications for procedure and expectations [...] were reviewed. Follow-up based on pathology results. C. Telangectasia (patient concerned and request biopsy; says had another melanoma that looked like this in past) Procedure: Skin biopsy by shave technique Location: left lateral alex Discussed indications for procedure and expectations including [...] reviewed. Follow-up based on pathology results. D. actinic keratosis Discussed at length treatment options for actinic keratoses including cryotherapy versus chemical treatment such as 5-FU or PDT. Discussed pros and cons of each including cryotherapy's potential for hypopigmentation and 5-FU's one month treatment course and potential for inflammation. Discussed need to not have suntan for best results from PDT; restrictions on light exposure; may need two or more PDTtreatments. -Patient still has carac cream. -ok to treat with carac cream, patient has at home: Apply topically once daily for 21 days. Then stop. E. seborrheic keratosis. Patient reassured. F. RTC in 3 months for full skin check and for excision of melanoma x 2 later this week. Patient instructed to call with questions or concerns. I am documenting this encounter acting as the scribe for and in the presence of Dr. Zamudio.: Tracy Jj LPN I performed the above scribed service and agree with the accuracy of the documentation in this encounter. Ni Zamudio MD Section of Dermatology [facility] documented in this encounter Plan of Treatment Upcoming Encounters Date Type Specialty Care Team Description 03/14/2022 Office Visit Dermatology [place] Edgar MD [facility] [address] DIANA CANAS-DERMAT [place], [place] [address] (Wo rk) documented as of this encounter Procedures Procedure Name Priority Date/Time Associated Diagnosis Comme nts SPECIMEN TO Routine 07/14/2014 9:42 AM Skin lesion Results f or this PATHOLOGY (NON-OR) EDT procedure are in the results section. SURGICAL PATHOLOGY Routine 07/14/2014 9:42 AM Res ults for this REPORT EDT procedure are i n the results section. documented in this encounter Results Surgical Pathology Report (07/14/2014 9:42 AM EDT) Component Value Ref Test Analysis Performed At [facility] gist Range Method Time Signature Surgical CERNER Pathology ? [facility] Report ? Provider: ?? NI ZAMUDIO ? Pt. Name: ?? HAJA CLARK, KAJAL Ureña ? Acc #: ?[id number] ? Pt. ? Col Date: ?? 5 ? /Sex: ?1945,(68 years),Female ? Rec Date: ?? 07/14/2014 ? LOC: ?HDM ? SURGICAL PATHOLOGY ? ---Pathologic Diagnosis--- ? A - Skin, right superior shoulder, shave biopsy: ? Actinic keratosis with slight increase in solit grant enlarged ? melanocytes. ??See Comment. ? B - Skin, left upper mid thigh, shave biopsy: ? Severely atypic al intraepidermal melanocytic proliferation arising in ? association wit h a melanocytic nevus; an evolving melanoma in situ ? cannot be excluded. ??See Comment. ? C - Skin, left lateral alex, shave biopsy: ? Lentigo with fe atures of a pigmented actinic keratosis. ??See Comment. ? CR-0 ? 07/15/14 ? BJM ? 07/16/14 Verified by: ? Rob Soria MD ? Dermatopatholo gist ? (Electronic Si gnature) ? The attending pathologist whose signature appears o n this report has ? reviewed all diagnostic slides and has edited the suzanne ss and/or ? microscopic portion of the report in rendering the fi nal pathologic ? diagnosis. ? ---Comment--- ? A - Within this actin ic keratosis, there is an increased number of enlarged ? epithelioid melanocytes. ??Nonetheless, in the contex t of features ? suggestive of trauma and presence on sun-damaged skin, this more likely ? represents a reactive phenomenon. ??Clinical fo llowup at this site is ? recommended. ??Multiple deeper levels have been exami lauren. ? B - The lesion is asymmetrical and poorly circu mscribed with solitary ? enlarged melanocytes predominating at, and also above, the dermoepidermal ? junction and overlyin g sun-damaged skin. ??Thus, this could represent an ? evolving melanoma in situ. For these reasons, and b ecause the lesion ? extends to within a minute fraction of a millim eter of the peripheral ? specimen edge, the co mplete excision of this site is strongly recommended ? to ensure its total r emoval. A MART-1 immunohistochemical stain highlights ? the melanocytic proli feration. This case has been reviewed by Dr. Bailey, ? who concurs with the diagnosis. Multiple deeper levels have been examined. ? C - Multiple deeper levels have been examined. ? [facility] ? Provider: ?? NI ZAMUDIO ? Pt. Name: ?? HAJA ER, KAJAL R ? Acc #: ?[id number] ? Pt. ? Col Date: ?? 5 ? /Sex: ?1945,(68 years),Female ? Rec Date: ?? 07/14/2014 ? LOC: ?HDM ? SURGICAL PATHOLOGY ? ---Gross Description--- ? A - Labeled/Fixative: Right superior shoulder, formal in. ? Quantity/Size: Single, 0.5 x 0.5 x 0.1 cm. ? Tissue Description: Shave of white, crusted skin. ? Sections/Processing: Inked and bisected. (T1) ? B - Labeled/Fixative: Left upper mid thigh, formalin. ? Quantity/Size: Single, 0.5 x 0.5 x 0.1 cm. ? Tissue Description: Shave of white skin with a 0.4 cm brown papule. ? Sections/Processing: Inked and bisected. (T1) ? C - Labeled/Fixative: Left lateral alex, formalin. ? Quantity/Size: Single, 0.7 x 0.6 x 0.1 cm. ? Tissue Description: Shave of white skin. ? Sections/Processing: Inked and trisected. (T1) ??sns ? ---Clinical Information--- ? Specimen Submitted: ? A - Skin, right superior shoulder, shave biopsy (1) ? B - Skin, left upper mid thigh, shave biopsy (1) ? C - Skin, left lateral alex, shave biopsy (1) ? Clinical History: ? A - 0.3 cm heme crusted papule ? B - slightly irregularly brown pigmented macule ? C - blanchable pink patch ? Clinical Diagnosis: ? A - nevus, rule out atypia ? B - nevus, rule out atypia ? C - nevus, rule out atypia Specimen (Source) Anatomical Collection Method Collection Time Re ceived Time Location / / Volume Laterality 07/14/2014 9:42 AM EDT Ni Zamudio MD PATHOLOGY/CYTOLOGY ORDERABLE S Performing Organization Address City/State/[place] [address] [facility] Specimen to Pathology (NON-OR) (07/14/2014 9:42 AM EDT) Specimen Anatomical Collection Method Collection Time Receive d Time (Source) Location / / Volume Laterality AP Specimen 07/14/2014 9:42 AM 5 9:42 EDT AM EDT Narrative GUILLERMINA GALVANIUM - 07/14/2014 9:42 AM E DT Specimen requisition ordered. ??Separate Pathology report to follow Ni Zamudio MD PATHOLOGY/CYTOLOGY ORDERABLE S Performing Organization Address City/State/[place] [address] GUILLERMINA WILKS documented in this encounter Visit Diagnoses Diagnosis Skin lesion Unspecified disorder of skin and subcuta neous tissue Personal history of malignant melanoma o f skin documented in this encounter Care Teams Solid Waste Technician Relationship Specialty Start Date End Date Kajal Schultz MD PCP - General 10/28/13 [address] [place] [address] documented as of this encounter
--- OUTSIDE RECORDS SUMMARY | 2022-02-06 11:50 | XMS_ITS | Encounter Summary ---
:1945 [place] [address] Care Team Providers Name Role Phone Kajal Schultz MD Primary Care Provider Reason for Visit Reason Comments Skin Check Encounter Details Date Type Department Care Team Description 06/30/2014 Follow-Up Dermatology at Grover Lucas MD Skin lesion (Primary Dx); [facility] History of melanoma; [address] History of basal cell cancer; [place] [address] [facility] [place] (actinic keratosis); [phone] RD-DERMATOLOGY Seborrheic keratosis [place], [place] [address] (Wo rk) Social History Tobacco [...] 2007, she had MIS treated in [place] ? Right [...] call for further advice and possible evaluation. -[facility], [place] Patient instructed to return to clinic [...] encounter. Ni Zamudio MD Section of Dermatology [facility] documented in this encounter Plan of Treatment Upcoming Encounters Date Type Specialty Care Team Description 03/14/2022 Office Visit Dermatology [place] Edgar MD [facility] [address] DIANA MEDINA-DERMAT [place] [address] (Wo rk) documented as of this encounter [...] Component Value Ref Test Analysis Performed At [facility] Range Method Time Signature Surgical CERNER Pathology ? [facility] Report ? Provider: ?? NI ZAMUDIO ? Pt. Name: ?? HAJA ER, KAJAL Ureña ? Acc #: ?[id number] ? Pt. ? Col Date: ?? 5 [...] ? Pathologic TNM Codes: ?? pT1a ? [facility] ? Provider: ?? NI ZAMUDIO ? Pt. Name: ?? HAJA ER, KAJAL Ureña ? Acc #: ?[id number] ? Pt. ? Col Date: ?? 5 ? /Sex: ?1945,(68 years),Female ? Rec Date: ?? 06/30/2014 ? LOC: ?HDM ? SURGICAL PATHOLOGY ? Dictated by: ??Dong Larsen, DO ? Dermatopathology Fellow ? As the attending phys icibrittaney, I attest that I examined the histologic slides, ? and confirm Dr. Dong Larsen's diagnosis. ? 07/01/14 ? BJM ? [...] ? Sections/Processing: Inked, bisected. (T1) ??cjl ? [facility] ? Provider: ?? NI ZAMUDIO ? Pt. Name: ?? HAJA CLARK, KAJAL Ureña ? Acc #: ?[id number] ? Pt. ? Col Date: ?? 5 [...] MD PATHOLOGY/CYTOLOGY ORDERABLE S Performing Organization Address City/[facility]/ZIP Code Phon e Number [address] [facility] Specimen to Pathology (NON-OR) (06/30/2014 3:18 PM EST) Specimen Anatomical Collection Method Collection Time Receive d Time (Source) Location / / Volume Laterality AP Specimen 06/30/2014 3:18 PM 201 5 3:18 EST PM EST Narrative CERNER MILLENNIUM - 06/30/2014 3:[address] Specimen requisition ordered. ??Separate Pathology report to follow Ni Zamudio MD PATHOLOGY/CYTOLOGY ORDERABLE S Performing Organization Address City/[facility]/[place] [address] [employer] documented in this encounter Visit Diagnoses Diagnosis Skin lesion - Primary Unspecified disorder of skin and subcuta neous tissue History of melanoma Personal history of malignant melanoma o f skin History of basal cell cancer Personal history of other malignant neop lasm of skin [place] (actinic keratosis) Actinic keratosis Seborrheic keratosis Other seborrheic keratosis documented in this encounter Care Teams Acid Regenerator Relationship Specialty Start Date End Date Kajal Schultz MD PCP - General 10/28/13 [address] [place] [address] documented as of this encounter
--- OUTSIDE RECORDS SUMMARY | 2022-02-06 11:50 | XMS_ITS | Encounter Summary ---
:1945 Author Organization [facility] [place] [address] Care Team Providers Name Role Phone Leeanne Schultz MD Primary Care Provider Encounter Details Date Type Department Care Team Description 07/12/2014 Orders Only Dermatology at [facility] Ni Zamudio MD [address] [facility] [place] [address] DIANA CANAS-DERMATOLOGY [phone] [place] [address] (Wo rk) Social History Tobacco Use Types [...] 03/14/2022 Office Visit Dermatology [place] Edgar MD [facility] DR DIANA CANAS-DERMAT [place], [place] [address] (Wo rk) documented as of this encounter Visit Diagnoses Not on filedocumented in this encounter Care Teams Chicken And Fish Butcher Relationship Specialty Start Date End Date Leeanne Schultz MD PCP - General 10/28/13 [address] [place] [address] documented as of this encounter
--- OUTSIDE RECORDS SUMMARY | 2022-02-06 11:50 | XMS_ITS | Encounter Summary ---
:1945 Author Organization [facility] [place] [address] Care Team Providers Name Role Phone Mira Marino MD Primary Care Provider Encounter Details Date Type Department Care Team Description 09/07/2013 Orders Only Orthopaedics at [facility] Donnell Leiva MD [facility] [place] [address] ORTHOPAEDIC SURGERY [phone] [place], [place] [address] (Wo rk) Social History Tobacco Use Types Packs/Day Years Used Date Former Smoker Sex Assigned at Date Recorded Female 10/02/2020 6:58 PM EDT documented as of this encounter Plan of Treatment Upcoming Encounters Date Type Specialty Care Team Description 03/14/2022 Office Visit Dermatology [place] Edgar MD [facility] ER DR DIANA CANAS-DERMAT [place], [place] [address] (Wo rk) documented as of [...] on filedocumented in this encounter Care Teams Investigations Chief Relationship Specialty Start Date End Date Mira Marino MD PCP - General 04/18/10 10/27/13 HOSPITALIST SERVICES [address] [place] [address] [place] [address] documented as of this encounter
--- OUTSIDE RECORDS SUMMARY | 2022-02-06 11:50 | XMS_ITS | Encounter Summary ---
:1945 [place] [address] Care Team Providers Name Role Phone Kajal Schultz MD Primary Care Provider Reason for Visit Reason Comments Skin Check Encounter Details Date Type Department Care Team Description 10/15[facility]2014 [facility] Personal history of malignan t melanoma of skin [address] [place] [address] [facility] [phone] RD-DERMATOLOGY [place] [address] (Wo rk) Social History Tobacco Use Types [...] August 2007, she had MIS treated in [place] ? Right lateral thigh. 6. 10/2006 Right lower back, mild to moderate DN , Excised 7. She grew up in [place] with a history of extensive sun exposure. [...] encounter. Chris Zamudio MD Section of Dermatology [facility] documented in this encounter Plan of Treatment Upcoming Encounters Date Type Specialty Care Team Description 03/14/2022 Office Visit Dermatology [place] Edgar MD [facility] DR DIANA CANAS-DERMAT [place], [place] [address] (Wo rk) documented as of [...] Component Value Ref Test Analysis Performed At [facility] gist Range Method Time Signature Surgical CERNER Pathology ? [facility][note 2] Report ? Provider: ?? NI ZAMUDIO ? Pt. Name: ?? [facility] ER, KAJAL R ? Acc #: ?[id number] ? Pt. ? Col Date: ?? 5 [...] and confirm Dr. Dong Larsen's diagnosis. ? [facility] ? Provider: ?? NI ZAMUDIO ? Pt. Name: ?? HAJA CLARK, KAJAL Ureña ? Acc #: ?[id number] ? Pt. ? Col Date: ?? 5 [...] negative controls. ??These ? IHC studies provide [facility] pathologist with adjunctive diagnostic information. ? [...] MD PATHOLOGY/CYTOLOGY ORDERABLE S Performing Organization Address City/[facility]/[place] [address] CERNER DaptENNIUM Specimen to Pathology (NON-OR) (10/15/2014 9:01 AM EDT) Specimen Anatomical Collection Method Collection Time Receive d Time (Source) Location / / Volume Laterality AP Specimen 10/15/2014 9:01 AM 5 9:01 EDT AM EDT Narrative CERNER MILLENNIUM - 10/15/2014 9:01 AM E DT Specimen requisition ordered. ??Separate Pathology report to follow Ni Zamudio MD PATHOLOGY/CYTOLOGY ORDERABLE S Performing Organization Address City/[facility]/ZIP [facility] [place] [address] CERNER [employer] documented in this encounter Visit Diagnoses Diagnosis Skin lesion Unspecified disorder of skin and subcuta neous tissue Personal history of malignant melanoma o f skin documented in this encounter Care Teams Director Of Family Service [facility] Relationship Specialty Start Date End Date Kajal Schultz MD PCP - General 10/28/13 [address] [place] [address] documented as of this encounter
--- OUTSIDE RECORDS SUMMARY | 2022-02-06 11:50 | XMS_ITS | Encounter Summary ---
:1945 Author Organization [facility] [place] [address] Care Team Providers Name Role Phone Mira Marino MD Primary Care Provider Encounter Details Date Type Department Care Team Description 09/12/2010 Abstract Dermatology Elisa Ortez, [place] [address] Social History Tobacco Use Types Packs/Day Years Used Date Never Assessed Sex Assigned at Date Recorded Female 10/02/2020 6:58 PM EDT documented as of this encounter Plan of Treatment Upcoming Encounters Date Type Specialty Care Team Description 03/14/2022 Office Visit Dermatology [place] Edgar MD [facility] DR DIANA CANAS-DERMAT [place], [place] [address] (Wo rk) documented as of this encounter Visit Diagnoses Not on filedocumented in this encounter Care Teams Bicycle Rental Clerk Relationship Specialty Start Date End Date Mira Marino MD PCP - General 04/18/10 10/27/13 HOSPITALIST SERVICES [address] [place] [address] DR [place] [id number] documented as of this encounter
--- OUTSIDE RECORDS SUMMARY | 2022-02-06 11:50 | XMS_ITS | Encounter Summary ---
:1945 [place] [address] Care Team Providers Name Role Phone Leeanne Schultz MD Primary Care Provider Reason for Visit Reason Comments Skin Check Encounter Details Date Type Department Care Team Description 10/28/2013 Follow-Up Dermatology at [facility] Lucas MD Scars (Primary Dx); [facility] Lentigines; [address] Personal history of malignant [place] [address] [facility] [phone] RD-DERMATOLOGY [place] [phone] (Wo rk) Social History Tobacco Use Types [...] August 2007, she had MIS treated in [place] ? Right lateral thigh. 6. 10/2006 Right [...] encounter. Ni Zamudio MD Section of Dermatology [facility] documented in this encounter Plan of Treatment Upcoming Encounters Date Type Specialty Care Team Description 03/14/2022 Office Visit Dermatology [place] Edgar MD [facility] DR DIANA MEDINA-DERMAT [place], [place] [address] (Wo rk) documented as of this encounter Visit Diagnoses Diagnosis Scars - Primary Scar condition and fibrosis of skin Lentigines Other dyschromia Personal history of malignant melanoma o f skin documented in this encounter Care Teams Business Process Analyst Relationship Specialty Start Date End Date Leeanne Schultz MD PCP - General 10/28/13 [address] [place] [address] documented as of this encounter
--- OUTSIDE RECORDS SUMMARY | 2022-02-06 11:50 | XMS_ITS | Encounter Summary ---
:1945 Author Organization [facility] [place] [address] Care Team Providers Name Role Phone Mira Marino MD Primary Care Provider Reason for Visit Reason Comments Skin Check Encounter Details Date Type Department Care Team Description 07/25/2011 Follow-Up Dermatology Ni Zamudio MD [place] (granuloma annulare) (Primary Dx); On license of [facility] [place] (actinic keratosis) [address] [place] [phone] [facility] [phone] RD-DERMATOLOGY [place] [address] (Wo rk) Social History Tobacco Use Types [...] Ni Zamudio MD Section of Dermatology [facility] documented in this encounter Plan of Treatment Upcoming Encounters Date Type Specialty Care Team Description 03/14/2022 Office Visit Dermatology [place] Edgar MD [facility] DR DIANA CANAS-DERMAT [place], [place] [address] (Wo rk) documented as of this encounter Visit Diagnoses Diagnosis [place] (granuloma annulare) - Primary Other specified erythematous condition [place] (actinic keratosis) Actinic keratosis documented in this encounter Care Teams Retort Unloader Relationship Specialty Start Date End Date Mira Marino MD PCP - General 04/18/10 10/27/13 HOSPITALIST SERVICES [address] [place] [address] [place] [address] documented as of this encounter
--- OUTSIDE RECORDS SUMMARY | 2022-02-06 11:50 | XMS_ITS | Encounter Summary ---
:1945 [place] [address] Care Team Providers Name Role Phone Mira Marino MD Primary Care Provider Encounter Details Date Type Department Care Team Description 04/18/2010 Follow-Up Dermatology Arnaldo Hansen MD [facility] [place] [address] DERMATOLOGY DEPT. [phone] [place], [place] [address] (Wo rk) Social History Tobacco Use Types Packs/Day Years Used Date Never Assessed Sex Assigned at Date Recorded Female 10/02/2020 6:58 PM EDT documented as of this encounter Plan of Treatment Upcoming Encounters Date Type Specialty Care Team Description 03/14/2022 Office Visit Dermatology [place] Edgar MD [facility] ER DR DIANA CANAS-DERMAT [place], [place] [address] (Wo rk) documented as of this encounter Visit Diagnoses Not on filedocumented in this encounter Care Teams Film Spooler Relationship Specialty Start Date End Date Mira Marino MD PCP - General 04/18/10 10/27/13 HOSPITALIST SERVICES [address] [place] [address] [address] [place], [place] [id number] documented as of this encounter
--- OUTSIDE RECORDS SUMMARY | 2022-02-06 11:50 | XMS_ITS | Encounter Summary ---
:1945 [place] [address] Care Team Providers Name Role Phone Mira Marino MD Primary Care Provider Reason for Visit Reason Comments Skin Check Encounter Details Date Type Department Care Team Description 04/15/2013 Follow-Up Dermatology at [facility] Grover Zamudio MD Skin lesion (Primary Dx); [facility] [place] (actinic keratosis) [address] [place] [address] [facility] [phone] RD-DERMATOLOGY [place], [place] [address] (Wo rk) Social History Tobacco Use Types Packs/Day Years Used Date Former Smoker Sex Assigned at Date Recorded Female 10/02/2020 6:58 PM EDT documented as of this encounter Progress Notes Amy Qiuroz RN - 04/21/2013 2:38 PM EST Quick Note: Spoke to pt, she understands the bx results. A) DF, nothing further needs to be done B) AK- discussed tx options, following clinically vs. carac vs. Ln2. Pt is leaving for [place] until August, will schedule her for when [...] , Excised 7. She grew up in [place] with a history of extensive sun exposure. [...] Ni Zamudio MD Section of Dermatology [facility] documented in this encounter Plan of Treatment Upcoming Encounters Date Type Specialty Care Team Description 03/14/2022 Office Visit Dermatology [place] Edgar MD [facility] [address] DIANA CANAS-DERMAT [place], [place] [address] (Wo rk) Scheduled Orders Name [...] Component Value Ref Test Analysis Performed At [facility] gist Range Method Time Signature Surgical CERNER Pathology ? [facility] Report ? Provider: ?? NI ZAMUDIO ? Pt. Name: ?? HAJA CLARK, KAJAL Ureña ? Acc #: ?[id number] ? Pt. ? Col Date: ?? 04/15/20 [...] h of 0.15 cm. ? Tissue Description: Asif skin. ? Sections/Processing: Submitted in one piece. (T1) ??c jl ? ---Clinical Information--- ? Specimen Submitted: ? A - Skin, right upper back, shave biopsy (1) ? B - Skin, left nasal alar crease, 3mm punch (1) ? Clinical History: ? [facility] ? Provider: ?? NI ZAMUDIO ? Pt. Name: ?? HAJA CLARK, KAJAL Ureña ? Acc #: ?[id number] ? Pt. ? Col Date: ?? 04/15/20 [...] MD PATHOLOGY/CYTOLOGY ORDERABLE S Performing Organization Address City/[facility]/ZIP [place] [address] [facility] Web[facility] Specimen to Pathology (NON-OR) (04/15/2013 1:50 PM EST) Specimen Anatomical Collection Method Collection Time Receive d Time (Source) Location / / Volume Laterality AP Specimen 04/15/2013 1:50 PM 3 1:50 EST PM EST Narrative CERNER MILLENNIUM - 04/15/2013 1:[address] Specimen requisition ordered. ??Separate Pathology report to follow Ni Zamudio MD PATHOLOGY/CYTOLOGY ORDERABLE S Performing Organization Address City/[facility] [place] [address] [employer] documented in this encounter Visit Diagnoses Diagnosis Skin lesion - Primary Unspecified disorder of skin and subcuta neous tissue [place] (actinic keratosis) Actinic keratosis documented in this encounter Care Teams Outside Energy Sales Representatives Relationship Specialty Start Date End Date Mira Marino MD PCP - General 04/18/10 10/27/13 HOSPITALIST SERVICES [address] [place] [address] [place] [address] documented as of this encounter
--- OUTSIDE RECORDS SUMMARY | 2022-02-06 11:50 | XMS_ITS | Encounter Summary ---
:1945 Author Organization [facility] [place] [address] Care Team Providers Name Role Phone Leeanne Schultz MD Primary Care Provider Reason for Referral Physical Therapy (Routine) - Closed Specialty Diagnoses / Procedures Referred By Contact Refer red To Contact Physical Therapy Diagnoses Plantar fasciitis of left foot Alli Mao PA [address] [place] [address] Referral ID Status Reason Start Date Expiration Date Visits V isits Requested Authorized [id number] Closed Evaluate and 11/03/2013 05/02/2014 8 8 Treat Reason for Visit Reason Comments Left Foot Pain Encounter Details Date Type Department Care Team Description 11/03/2013 Office Visit [place] [facility] Donnell Leiva MD Plantar fasciitis of left foot (Primary Dx); [facility] f [place]rom[place] [address] ORTHOPAEDIC [phone] [place], [place] [address] Social History Tobacco Use Types [...] NAME: Leeanne Bush AGE: 68 y.o. MR#: [id number] DATE OF VISIT: 11/03/2013 DATE OF INJURY/ONSET: [...] wear due to pain. She was in [place] and has seen threepodiatrist, and has 6-7 [...] Visit Dermatology [place] Edgar MD [facility] [address] DIANA CANAS-DERMAT [place], [place] [address] (Wo rk) Scheduled Referrals Name Type Priority Associated Diagnoses Order S chedule Referral to Outpatient Referral Routine Plantar fasciitis of Ordered: Physical Therapy left foot 11/03/2013 documented as of this encounter Visit Diagnoses Diagnosis Plantar fasciitis of left foot - Primary Plantar fascial fibromatosis Plantar fibromatosis Plantar fascial fibromatosis documented in this encounter Care Teams German Professor Relationship Specialty Start Date End Date Leeanne Schultz MD PCP - General 10/28/13 [address] [place] [address] documented as of this encounter
--- OUTSIDE RECORDS SUMMARY | 2022-02-06 11:50 | XMS_ITS | Encounter Summary ---
:1945 Author Organization [facility] [place] [address] Care Team Providers Name Role Phone Mira Marino MD Primary Care Provider Encounter Details Date Type Department Care Team Description 10/07/2012 Orders Only Dermatology at [facility] [address] [place] [address] [facility] [phone] DIANA CANAS-DERMAT [place], [place] [address] Social History Tobacco Use Types Packs/Day Years Used Date Former Smoker Sex Assigned at Date Recorded Female 10/02/2020 6:58 PM EDT documented as of this encounter Plan of Treatment Upcoming Encounters Date Type Specialty Care Team Description 03/14/2022 Office Visit Dermatology [place] Edgar MD [facility] ER DR DIANA CANAS-DERMAT [place], [place] [address] (Wo rk) documented as of this encounter Visit Diagnoses Not on filedocumented in this encounter Care Teams Centrifugal Casting Machine Operator Relationship Specialty Start Date End Date Mira Marino MD PCP - General 04/18/10 10/27/13 HOSPITALIST SERVICES [address] [place] [address] [place] [address] documented as of this encounter
--- OUTSIDE RECORDS SUMMARY | 2022-02-06 11:50 | XMS_ITS | Encounter Summary ---
:1945 Author Organization [facility] [place] [address] Care Team Providers Name Role Phone Leeanne Schultz MD Primary Care Provider Reason for Visit Reason Comments Skin Lesion right forearm Encounter Details Date Type Department Care Team Description 08/19/2014 [facility] Bartolo Lipoma; Geneva Fisher MD Lentigo; [address] [facility] [place] [address] [facility]-DERMATOLOGY [place], [place] [address] (Wo rk) Social History [...] August 2007, she had MIS treated in [place] ? Right lateral thigh. 6. 10/2006 Right [...] encounter. Bartolo Rojas MD Resident in Dermatology [facility] Patient seen and evaluated with staff source inspector: Cm Kaminski MD Section of Dermatology [facility] documented in this encounter Plan of Treatment Upcoming Encounters Date Type Specialty Care Team Description 03/14/2022 Office Visit Dermatology [place] Edgar MD [facility] DR DIANA CANAS-DERMAT [place], [place] [address] (Wo rk) documented as of this encounter Visit Diagnoses Diagnosis Lipoma Lipoma of unspecified site Lentigo Other dyschromia Seborrheic keratosis Other seborrheic keratosis documented in this encounter Care Teams Glass Etcher Relationship Specialty Start Date End Date Leeanne Schultz MD PCP - General 10/28/13 [address] [place] [address] documented as of this encounter
--- OUTSIDE RECORDS SUMMARY | 2022-02-06 11:50 | XMS_ITS | Encounter Summary ---
:1945 Author Organization [facility] [place] [address] Care Team Providers Name Role Phone Mira Marino MD Primary Care Provider Reason for Visit Reason Comments Procedure Encounter Details Date Type Department Care Team Description 10/15/2012 Procedure visit Dermatology at [facility] Maritza Brito MD (Primary Dx) [address] [place] [address] [facility] [phone] RD-DERMATOLOGY [place] [address] Social History Tobacco Use Types Packs/Day Years [...] the hospital number and ask for the Electric Meter Repairer three dimensional art instructor. Doctor Maritza Mcdowell MD Nurse Sandrita documented [...] to have routine skin checks with her ui architect in [place]. Patient voiced understanding and agreement. All her questions were answered to her satisfaction. Encouraged to call with any questions or concerns. Maritza Mcdowell MD Resident in Dermatology [facility] Cm Kaminski III, MD - 10/20/2012 5:44 PM EDT I was the supervising physician working with dermatology resident Dr. Maritza Alvarez in the dermatology clinic during this patient visit. The level of Resident supervision for this patient visit was indirect supervision with direct supervision immediately available. (definition: [facility]ME Policy Statement on Graduate Medical Education, [...] anterior shoulder which was biopsied by a ui architect in [place] on 07/02/12 (see pathology report below). Pt [...] benign lesion Resident Surgeon: Maritza Mcdowell MD Nicu Rn: Sandrita Kumari ?? Diagnosis: Moderately dysplastic compound [...] days 2. RTC as scheduled with Primary Electric Meter Repairer. Maritza Mcdowell MD Resident in Dermatology [facility] Patient was discussed with the Supervising Physician: Cm Kaminski MD Section of Dermatology [facility] Level of Resident Supervision: Indirect supervision with [...] Visit Dermatology [place] Edgar MD [facility] [address] DIANA CANAS-DERMAT [place], [place] [address] (Wo rk) documented as of [...] 10/15/2012 AM EDT 10:49 AM EDT Narrative [facility] - 10/15/2012 10:49 AM EDT Specimen requisition ordered. ??Separate Pathology report to follow Cm Kaminski III, MD PATHOLOGY/CYTOLOGY ORDERABLE S Performing Organization Address City/State/[place] [address] [facility] Surgical Pathology Report (10/15/2012 10:14 AM EDT) Component Value Ref Test Analysis Performed At [facility] gist Range Method Time Signature Surgical [facility] Pathology ? [facility] Report ? Provider: ?? SAPNA MCDOWELL, ?? Pt. Name: ?? LINDA R, KAJAL R ?MARITZA BRITO ? Acc #: ?[id number] ? Pt. ? Col Date: ?? 3 [...] shoulder from 07/02/2102, ? ([facility] ??#[id number]) was received for ? comparison. ? The [...] shoulder, excision (1) ? Clinical History: ? [facility] ? Provider: ?? SAPNA MCDOWELL, ?? Pt. Name: ?? LINDA R, KAJAL R ?MARITZA BRITO ? Acc #: ?[id number] ? Pt. ? Col Date: ?? 3 [...] Address City/State/ZIP [place] [address] [facility] documented in this encounter Visit Diagnoses Diagnosis Dysplastic nevus - Primary Benign neoplasm of skin, site unspecifie d documented in this encounter Care Teams Testing Director Relationship Specialty Start Date End Date Mira Marino MD PCP - General 04/18/10 10/27/13 HOSPITALIST SERVICES [address] [place] [address] [place] [address] documented as of this encounter
--- OUTSIDE RECORDS SUMMARY | 2022-02-06 11:50 | XMS_ITS | Encounter Summary ---
:1945 Author Organization [facility] [place] [address] Care Team Providers Name Role Phone Leeanne Schultz MD Primary Care Provider Encounter Details Date Type Department Care Team Description 10/28/2014 Telephone Dermatology at [facility] Ni Zamudio MD [address] [facility] [place] [address] [facility]-DERMATOLOGY [phone] [place] [address] (Wo rk) Social History Tobacco Use Types Packs/Day Years Used Date Former Smoker Smokeless Tobacco: Never Used Alcohol Use Standard Drinks/Week Comments Yes 7 (1 standard drink = 0.6 oz pure alcoho l) Sex Assigned at Date Recorded Female 10/02/2020 6:58 PM EDT documented as of this encounter Miscellaneous Notes Telephone Encounter - Humberto Gill - 10/28/2014 1:56 PM EDT Ivet called last night returning Dr. Zamudio's call. She can be reached at the home number listed tomorrow. Humberto Herbert documented in this encounter Plan of Treatment Upcoming Encounters Date Type Specialty Care Team Description 03/14/2022 Office Visit Dermatology [place] Edgar MD [facility] DR [address] RD-DERMAT [place], [place] [address] (Wo rk) documented as of this encounter Visit Diagnoses Not on filedocumented in this encounter Care Teams Pipe Bowl Paint Trimmer Relationship Specialty Start Date End Date Leeanne Schultz MD PCP - General 10/28/13 [address] [place] [address] documented as of this encounter
--- OUTSIDE RECORDS SUMMARY | 2022-02-06 11:55 | XMS_ITS | Encounter Summary ---
:1945 Author Organization [facility] Address [address] [place] [address] Care Team Providers Name Role Phone Ned Marifer AC Primary Care Provider Shmuel Soni MD Primary Care Provider Unavailable Encounter Details Date Type Department Care Team Description 01/15/2005 Results Only [facility] - Nelsy Boogie od, Samantha Hollins, SAND TECHNOLOGIST conversion [address] [facility] [address] [place] [phone] (Wo rk) Social History Tobacco Use Types [...] ? LEEANNE BUSH ? Accession #: ? [id number] : ? 1945 (Age: 59) ??F ?Collect Date: ? 01/04 Location: ? [facility] ? Receive Date : ? 01/17/2005 Provider: ?SAMANTHA BOND SAND TECHNOLOGIST Copy to: ? Specimen/Source: ? ThinPrep Pap Test, Vagina, processed on [employer] ThinPrep Imaging System, with manual evaluation Last [...] Address City/State/ZIP Code Phon e Number [facility] [address] [place] [address] SERVICES [facility] [address] [place] [address] documented in this encounter Visit Diagnoses Not on filedocumented in this encounter Care Teams Precision Instrument And Tool Maker Relationship Specialty Start Date End Date Marifer Marino NP PCP - General 11/29/08 1 [place] [phone] Shmuel Soni MD PCP - General 11/01/08 11/28/08 documented as of this encounter
--- OUTSIDE RECORDS SUMMARY | 2022-02-06 11:55 | XMS_ITS | Encounter Summary ---
:1945 Author Organization [facility] Address [address] [place] [address] Care Team Providers Name Role Phone Ned Marifer AC Primary Care Provider Shmuel Soni MD Primary Care Provider Unavailable Encounter Details Date Type Department Care Team Description 11/27/2001 Hospital Encounter [facility] - Abel [place] MD [address] [facility] [address] [place] [address] Other Unknown, Provider, [address] [place] [address] Social History Tobacco Use Types [...] ? LEEANNE BUSH ? Accession #: ? [id number] ? : ? 1945 (Age: 56) ??F [...] Gross Description: ? Received in formalin labelled [place] and left upper chest is a shave biopsy measuring 0.6 x 0.5 by less than 0.1 cm. ??The surface is slightly irregular and yellow. ??The specimen is trisected and entirely submitted in one cassette. ??(Dr. Kinney)/[facility] End of Report Specimen Performing Organization Address City/State/ZIP Code Phon e Number [facility] [address] [place] [address] SERVICES [facility] [address] [place] [address] documented in this encounter Visit Diagnoses Not on filedocumented in this encounter Care Teams Waterproof Material Folder Relationship Specialty Start Date End Date Marifer Marino NP PCP - General 11/29/08 [address] [place], [place] [phone] Shmuel Soni MD PCP - General 11/01/08 11/28/08 documented as of this encounter
--- OUTSIDE RECORDS SUMMARY | 2022-02-06 11:55 | XMS_ITS | Encounter Summary ---
:1945 Author Organization [facility] Address [address] [place] [address] Care Team Providers Name Role Phone Unavailable Primary Care Provider Unavailable Encounter Details Date Type Department Care Team Description 06/07/2000 Hospital Encounter [facility] - Mara Natarajan CFNP Other Unknown, Provider, [address] [place] [address] Social History Tobacco Use Types Packs/Day Years [...] ? LEEANNE BUSH ? Accession #: ? [id number] : ? 1945 (Age: 54) ??F ?Collect [...] a Ronaldo' s level III malignant melanoma ([id number] ) is not available for review. ??The current material shows no evidence of metastatic disease, however, clin ical correlation is recommended. ??(Dr. Camejo)/[facility] Document reviewed and electronically signed by: ? [...] Organization Address City/State/ZIP Code Phon e Number [facility] [address] [place] [phone] SERVICES [facility] [address] [place] [address] documented in this encounter Visit Diagnoses Not on filedocumented in this encounter
--- OUTSIDE RECORDS SUMMARY | 2022-02-06 11:55 | XMS_ITS | Encounter Summary ---
:1945 Author Organization [facility] Address [address] [place] [address] Care Team Providers Name Role Phone Marifer Marino NP Primary Care Provider Shmuel Soni MD Primary Care Provider Unavailable Encounter Details Date Type Department Care Team Description 01/27/2007 Results Only [facility] - Mónica Crystal BAG MACHINE ADJUSTER conversion [address] [place] [address] Social History Tobacco Use Types Packs/Day Years [...] ? LEEANNE BUSH ? Accession #: ? [id number] : ? 1945 (Age: 61) ??F ?Collect Date: ? 01/05 Location: ? [facility] ? Receive Date : ? 01/27/2007 Provider: ?MÓNICA MURRAY BAG MACHINE ADJUSTER Copy to: ? Specimen/Source: ? ThinPrep Pap Test, Vagina, processed on [employer] ThinPrep Imaging System, with manual evaluation Last [...] [facility] [address] [place] [address] SERVICES [facility] [address] [place] [address] documented in this encounter Visit Diagnoses Not on filedocumented in this encounter Care Teams Experimental Display Builder Relationship Specialty Start Date End Date Marifer Marino NP PCP - General 11/29/08 [address] [place] [address] Shmuel Soni MD PCP - General 11/01/08 11/28/08 documented as of this encounter
--- OUTSIDE RECORDS SUMMARY | 2022-02-06 11:55 | XMS_ITS | Encounter Summary ---
:1945 Author Organization [facility] Address [address] [place] [address] Care Team Providers Name Role Phone Ned Marifer AC Primary Care Provider Shmuel Soni MD Primary Care Provider Unavailable Encounter Details Date Type Department Care Team Description 09/01/2003 Hospital Encounter [facility] - Albert Farrell MD Other [address] [place] [address] [address] [place] [address] (Wo rk) Social History Tobacco Use Types Packs/Day Years Used Date Never Assessed Sex Assigned at Date Recorded Not on file documented as of this encounter Plan of Treatment Not on filedocumented as of this encounter Procedures Procedure Name Priority Date/Time Associated Diagnosis [facility] SURGICAL PATHOLOGY Routine 09/01/2003 0:00 EDT Re [...] ? LEEANNE BUSH ? Accession #: ? [id number] ? : ? 1945 (Age: 57) ??F [...] a mast cell lesion. The predominance of KS25-bujhriln cells support s the granulomatous nature of the infiltrate. ??Dr. Ren Hoyt has reviewed this case. ??(Dr. Branch[facility] Microscopic Description: ? Sections consist of [...] l, Dako), presumably representing Langerhans cells. (Dr. Branch)/[facility] ? NOTE: ??One or more of [...] eagents' ??performance characteristics have been determined by [facility]. ??This laboratory is certified unde r the [...] Organization Address City/State/ZIP Code Phon e Number [facility] [address] [place] [address] SERVICES [facility] [address] [place] [phone] documented in this encounter Visit Diagnoses Not on filedocumented in this encounter Care Teams Geriatric Aide Relationship Specialty Start Date End Date Ready, Marifer, TARE WEIGHER PCP - General 11/29/08 1 [place] [address] Shmuel Soni MD PCP - General 11/01/08 11/28/08 documented as of this encounter
--- OUTSIDE RECORDS SUMMARY | 2022-02-06 11:55 | XMS_ITS | Encounter Summary ---
:1945 Author Organization [facility] Address [address] [place] [address] Care Team Providers Name Role Phone Unavailable Primary Care Provider Unavailable Encounter Details Date Type Department Care Team Description 08/20/2000 Hospital Encounter [facility] Orville Mckee Jr., [facility] [address] [address] [address] [phone] [address] [place] [address] (Wo rk) Social History Tobacco Use Types Packs/Day Years Used Date Never Assessed Sex Assigned at Date Recorded Not on file documented as of this encounter Discharge Disposition Disposition Code Departure Means Destination Auto Discharge documented in this encounter Plan of Treatment Not on filedocumented as of this encounter Procedures Procedure Name Priority Date/Time Associated Diagnosis Comme [facility] SURGICAL PATHOLOGY Routine 08/20/2000 0:00 EDT Re [...] ? LEEANNE BUSH ? Accession #: ? [id number] ? : ? 1945 (Age: 54) ??F [...] Gross Description: ? Received in formalin labelled [place] and [facility] left neck is an [...] Organization Address City/State/ZIP Code Phon e Number [facility] [address] [place] [address] SERVICES [facility] [address] [place] [address] documented in this encounter Visit Diagnoses Not on filedocumented in this encounter
--- OUTSIDE RECORDS SUMMARY | 2022-02-06 11:55 | XMS_ITS | Encounter Summary ---
:1945 Author Organization [facility] Address [address] [place] [address] Care Team Providers Name Role Phone Ned Marifer AC Primary Care Provider Shmuel Soni MD Primary Care Provider Unavailable Encounter Details Date Type Department Care Team Description 02/27/2006 Before [facility], Converted Visit Maple conversion Marni Ryan MD (Maple) [address] [facility] [address] [place] [address] [facility] [address] [place] [address] (Wo rk) Social History Tobacco Use Types Packs/Day Years Used Date Never Assessed Sex Assigned at Date Recorded Not on file documented as of this encounter Progress Notes Marni Herring MD - 04/16/2009 1704 EST DIVISION OF DERMATOLOGY PROGRESS/FOLLOWUP NOTE - 02/27/2006 PROBLEM: 1. 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 2. Melanoma in situ, left back (biopsied in [place]). 3. History of multiple basal cell carcinomas. 4. History of actinic keratoses. SUBJECTIVE: Mrs. Bush returns today for a followup examination of the above- mentioned problems. She was last evaluated in our Dermatology Clinic by Dr. Caroline Farrell on February 28, 2005. At that time, she had cautery to a dilated pore of the left nasal crease for a comedone, but otherwise had no other problems. She has visited with Mara Natarajan today and says that things have checked out well. She has three concerns she would like to address with us. The first is that, over the right malar eminence she has had an asymptomatic spot there for approximately two months that she is interested in having evaluated. It does not cause any problems, but she merely feels it has become more noticeable. Additionally, she notes that where she had the comedone cauterized at the last visit, she notices a small bump in the left nasal crease that she is interested in having evaluated. Lastly, she notes that over her right second knuckle she has a 1 cm annular plaque that comes and goes and is asymptomatic. She has been given a diagnosis for this in the past, but has forgotten the name and is interested in one today. Since last being seen, she has had no major interim health status change. She denies any constitutional symptoms or any new family history of melanoma. Overall, she does a good job of staying out of the sun and uses sunscreen on a regular basis. OBJECTIVE: Physical examination reveals a healthy- appearing 60- year- old female with Garrido skin type I. Complete cutaneous examination was performed with the exception of the genitalia region. Over the left cheek region she has a well- healed scar with no evidence of nodularity or in- transit m etastases. Scattered over all sun- exposed surfaces, she has multiple hyperpigmented macules and patches. Over the right malar eminence, she has a 1.5 mm flesh- colored fibrous papule. In the left nasal crease, she has a pinpoint white milium cyst. Over the right second knuckle of her dorsal hand she has a 1 cm circular, raised, indurated, flesh- colored plaque. Photographs of the nevi previously reveal that all are unchanged with the exception of one on the right lower back, which initially measured 5 mm x 11 mm and now measures at least 14 mm in its longest diameter. Additionally, it has some eccentric hyperpigmentation. The remainder of the cutaneous examination is within normal limits. ASSESSMENT: 1. Malignant melanoma, left cheek, no evidence of recurrence. 2. Malignant melanoma in situ, left upper back, no evidence of recurrence. 3. History of basal cell carcinoma, no evidence of recurrence. 4. History of actinic keratoses, none present today. 5. Fibrous papule, right malar eminence. 6. Milium cyst, left nasal crease. 7. Granuloma annulare, right second dorsal knuckle. 8. Numerous solar lentigines. 9. Changing nevus, right lower back, rule out malignant melanoma. PLAN: 1. Patient education. Impression discussed and questions answered. Reviewed the importance of sunscreen, photo avoidance, and self- examination. 2. Reassurance was given regarding the fibrous papule, milium cyst, and granuloma annulare. 3. For the papule of uncertain behavior, recommend a 5 mm punch biopsy of the darkest central lesion. Additionally, surgical appointment was set up for 45 minutes in the near future. She will have sutures removed in 7 to 10 days. Please see the procedure note for full details. 4. As mentioned, she will be following up for a surgical visit, and then in one year with a perforator operator in her home town. saw and examined the patient with Dr. William. I agree with the HPI, exam findings and the plan of care as outlined above. I have documented any additions/changes in the body of the note. Edited and Signed by Caroline Farrell MD 03/05/2006 14:46 Reviewed by Marni Herring MD 03/04/2006 11:32 Kady Herring, Karolina Herring, Emi Farrell MD Dictated by: Marni Herring MD Caroline Farrell MD - Marni Herring MD P - O4 Job ID: [id number] Document ID: [id number] cc: Shmuel Soni MD documented in this encounter Plan of Treatment Not on filedocumented as of this encounter Visit Diagnoses Not on filedocumented in this encounter Care Teams Reclaimer Relationship Specialty Start Date End Date Marifer Marino NP PCP - General 11/29/08 1 [place] [address] Shmuel Soni MD PCP - General 11/01/08 11/28/08 documented as of this encounter
--- OUTSIDE RECORDS SUMMARY | 2022-02-06 11:55 | XMS_ITS | Encounter Summary ---
:1945 Author Organization [facility] Address [address] [place] [address] Care Team Providers Name Role Phone Marifer Marino NP Primary Care Provider Encounter Details Date Type Department Care Team Description 01/09/2018 Hospital Encounter [facility]- Melanie Unknown, Provider, [facility] [address] [facility] [phone] [place] [address] (Work) [phone] Social History Tobacco Use Types Packs/Day Years Used Date Never Assessed Sex Assigned at Date Recorded Not on file documented as of this encounter Discharge Disposition Disposition Code Departure Means Destination Home or Self [facility] documented in this encounter Plan of Treatment Not on filedocumented as of this encounter Visit Diagnoses Not on filedocumented in this encounter Care Teams Producer Arborist Manager Relationship Specialty Start Date End Date Marifer Marino NP PCP - General 11/29/08 1 [place], [place] [address] documented as of this encounter
--- OUTSIDE RECORDS SUMMARY | 2022-02-06 11:55 | XMS_ITS | Encounter Summary ---
:1945 Author Organization [facility] Address [address] [place] [address] Care Team Providers Name Role Phone Marifer Marino NP Primary Care Provider Shmuel Soni MD Primary Care Provider Unavailable Encounter Details Date Type Department Care Team Description 04/15/2001 Hospital Encounter [facility] - Caroline Farrell MD [address] [facility] [address] [place] [address] Other Unknown, Provider, [address] [place], [place] [id number] Social History Tobacco Use Types Packs/Day Years Used Date Never Assessed Sex Assigned at Date Recorded Not on file documented as of this encounter Plan of Treatment Not on filedocumented as of this encounter Visit Diagnoses Not on filedocumented in this encounter Care Teams Actuary Clerk Relationship Specialty Start Date End Date Marifer Marino NP PCP - General 11/29/08 1 [place], [place] [address] Shmuel Soni MD PCP - General 11/01/08 11/28/08 documented as of this encounter
--- OUTSIDE RECORDS SUMMARY | 2022-02-06 11:55 | XMS_ITS | Encounter Summary ---
:1945 Author Organization [facility] Address [address] [place] [address] Care Team Providers Name Role Phone Marifer Marino NP Primary Care Provider Shmuel Soni MD Primary Care Provider Unavailable Encounter Details Date Type Department Care Team Description 11/02/2002 Results Only [facility] - Mónica Crystal HAND CANDY MOLDER conversion [address] [place] [address] Social History Tobacco Use Types Packs/Day Years [...] ? LEEANNE BUSH ? Accession #: ? [id number] : ? 1945 (Age: 57) ??F ?Collect Date: ? 10/06 Location: ? [facility] ? Receive Date : ? 11/04/2002 Provider: ?MÓNICA MURRAY HAND CANDY MOLDER Copy to: ? Specimen/Source: ?ThinPrep Pap Test, [...] Code Phon e Number [facility] [address] [place] [address] SERVICES [facility] [address] [place] [address] documented in this encounter Visit Diagnoses Not on filedocumented in this encounter Care Teams Bonded Strand Operator Relationship Specialty Start Date End Date Marifer Marino NP PCP - General 11/29/08 [address] [place] [address] Shmuel Soni MD PCP - General 11/01/08 11/28/08 documented as of this encounter
--- OUTSIDE RECORDS SUMMARY | 2022-02-06 11:55 | XMS_ITS | Encounter Summary ---
:1945 Author Organization [facility] Address [address] [place] [address] Care Team Providers Name Role Phone Unavailable Primary Care Provider Unavailable Encounter Details Date Type Department Care Team Description 04/11/2001 Hospital Encounter [facility] Albert Farrell MD [address] [facility] [address] [place] [address] Other Unknown, Provider, [address] [place], [place] [address] Social History Tobacco Use Types Packs/Day Years [...] ? LEEANNE BUSH ? Accession #: ? [id number] ? : ? 1945 (Age: 55) ??F [...] and cords of similar melanocytes that show senior client advisor maturation with descent. ??T here is papillary [...] Gross Description: ? Received in formalin labelled [place] is a callahan curling 0.6 x 0.5 cm skin shave with an eccentric callahan- brown mottled 0.2 x 0.2 cm macule. ??The specimen is trisected and entirely submitted in one cassette. ??(Lexie Avila)/[facility] End of Report Specimen Performing Organization Address City/State/ZIP Code Phon e Number [facility] [address] [place] [address] SERVICES [facility] [address] [place] [address] documented in this encounter Visit Diagnoses Not on filedocumented in this encounter
--- OUTSIDE RECORDS SUMMARY | 2022-02-06 11:55 | XMS_ITS | Encounter Summary ---
:1945 Author Organization [facility] Address [address] [place] [address] Care Team Providers Name Role Phone Marifer Marino NP Primary Care Provider Shmuel Soni MD Primary Care Provider Unavailable Encounter Details Date Type Department Care Team Description 11/08/1999 Results Only [facility] - Mónica Crystal LAB AIDE conversion [address] [place] [address] Social History Tobacco Use Types Packs/Day Years [...] ? LEEANNE BUSH ? Accession #: ? [id number] : ? 1945 (Age: 54) ??F ?Collect Date: ? 09/1999 Location: ? [facility] ? Receive Date : ? 11/10/1999 Provider: ?MÓNICA MURRAY LAB AIDE Copy to: ? Specimen/Source: ?ThinPrep Pap Test, [...] Address City/State/ZIP Code Phon e Number [facility] [address] [place] [address] SERVICES [facility] [address] [place] [address] documented in this encounter Visit Diagnoses Not on filedocumented in this encounter Care Teams Payment Specialist Relationship Specialty Start Date End Date Marifer Marino NP PCP - General 11/29/08 [address] [place] [address] Shmuel Soni MD PCP - General 11/01/08 11/28/08 documented as of this encounter
--- OUTSIDE RECORDS SUMMARY | 2022-02-06 11:55 | XMS_ITS | Encounter Summary ---
:1945 Author Organization [facility] Address [address] [place] [address] Care Team Providers Name Role Phone Unavailable Primary Care Provider Unavailable Encounter Details Date Type Department Care Team Description 11/21/2005 Hospital Encounter [facility] [address] [place] [address] Social History Tobacco Use Types Packs/Day Years Used Date Never Assessed Sex Assigned at Date Recorded Not on file documented as of this encounter Discharge Disposition Disposition Code Departure Means Destination Auto Discharge documented in this encounter Plan of Treatment Not on filedocumented as of this encounter Visit Diagnoses Not on filedocumented in this encounter
--- OUTSIDE RECORDS SUMMARY | 2022-02-06 11:55 | XMS_ITS | Encounter Summary ---
:1945 Author Organization [facility] Address [address] [place] [address] Care Team Providers Name Role Phone Marifer Marino NP Primary Care Provider Shmuel Soni MD Primary Care Provider Unavailable Encounter Details Date Type Department Care Team Description 12/30/2003 Results Only [facility] - Mónica Crystal RIPSAWYER conversion [address] [place] [address] Social History Tobacco Use Types Packs/Day Years [...] ? LEEANNE BUSH ? Accession #: ? [id number] : ? 1945 (Age: 58) ??F ?Collect Date: ? 12/05 Location: ? [facility] ? Receive Date : ? 12/31/2003 Provider: ?MÓNICA MURRAY RIPSAWYER Copy to: ? Specimen/Source: ?ThinPrep Pap Test, [...] Organization Address City/State/ZIP Code Phon e Number [facility] [address] [place] [address] SERVICES [facility] [address] [place] [address] documented in this encounter Visit Diagnoses Not on filedocumented in this encounter Care Teams Systems Software Engineer Relationship Specialty Start Date End Date Marifer Marino NP PCP - General 11/29/08 [address] [place] [address] Shmuel Soni MD PCP - General 11/01/08 11/28/08 documented as of this encounter
--- OUTSIDE RECORDS SUMMARY | 2022-02-06 11:55 | XMS_ITS | Clinical Summary ---
:1945 Author Organization [facility] Address [address] [place] [address] Care Team Providers Name Role Phone Marifer Marino OSORIO Primary Care Provider Encounters Date Type Specialty Care Team Description 11/14/2021 Lab Requisition Clinical Laboratory Outr Resulting Lab , Provider from Last 3 Months Social History Tobacco Use Types Packs/Day Years Used Date Never Assessed Sex Assigned at Date Recorded Not on file Plan of Treatment Health Maintenance Due Date Last Done Comments Hepatitis C Screen 1945 COVID-19 Vaccine (1) 09[birth year]25/1951 Fall Risk Screening 09/25/2011 Procedures Procedure Name Priority Date/Time Associated Diagnosis Comme nts IGE Routine 11/14/2021 11:00 EDT Results for this procedure are i n the results section . from Last 3 Months Results IGE (11/14/2021 11:00 EDT) Pathologist Sig nature IgE 15 <158 IU/mL [facility] Specimen Blood - Venous blood (substance) Performing Organization Address City/State/ZIP Code Phon e Number [facility] [address] [place] [address] SERVICES from Last 3 Months Insurance Payer Benefit Plan Subscriber ID Effective Phone Address Typ e / Group Dates MEDICARE MEDICARE A/B [id number] 2011-Pres P O DEA M edicare GL ent [id number] [facility] [address] [facility] [id number] 2020-Pres [phone] [address] HEALTHCARE ent [phone] [place] [address] RachelleDanisLeeanne Niranjan Personal/Famil Self 1945 [phone] (Home) [place] [address] [place]an[place] Personal/Famil Self 1945 [phone] (Home) [place] [address] Danis Bushah Niranjan Personal/Famil Self 1945 [phone] (Home) [place] [address] [place]anne Niranjan Personal/Famil Self 1945 [phone] (Home) [place] [address] Advance Directives For more information, please contact: [phone] Documents on File Type Date Recorded Patient Cementer Explanati on Advance Directives and Living Will Power of Territory Outside Sales Manager Care Teams Glassware Maker Demonstrator Relationship Specialty Start Date End Date Marifer Marino NP PCP - General 11/29/08 1 [place] [address]
--- OUTSIDE RECORDS SUMMARY | 2022-02-06 11:55 | XMS_ITS | Encounter Summary ---
:1945 Author Organization [facility] Address [address] [place] [address] Care Team Providers Name Role Phone Ned Marifer AC Primary Care Provider Shmuel Soni MD Primary Care Provider Unavailable Encounter Details Date Type Department Care Team Description 12/11/2005 Results Only [facility] - Raoul Dorado MD conversion [address] [facility] [address] [place] [phone] Social History Tobacco Use Types Packs/Day Years [...] ? LEEANNE BUSH ? Accession #: ? [id number] ? : ? 1945 (Age: 60) ??F [...] Organization Address City/State/ZIP Code Phon e Number [facility] [address] [place] [address] SERVICES [facility] [address] [place] [address] documented in this encounter Visit Diagnoses Not on filedocumented in this encounter Care Teams Mill Supervisor Relationship Specialty Start Date End Date Marifer Marino NP PCP - General 11/29/08 [address] [place] [address] Shmuel Soni MD PCP - General 11/01/08 11/28/08 documented as of this encounter
--- OUTSIDE RECORDS SUMMARY | 2022-02-06 11:55 | XMS_ITS | Encounter Summary ---
:1945 Author Organization [facility] Address [address] [place] [address] Care Team Providers Name Role Phone Marifer Marino NP Primary Care Provider Encounter Details Date Type Department Care Team Description 11/14/2021 Lab Requisition [facility] Outr Resulting Lab, Pathology & Laboratory Provider [facility] [address] [place] [address] Social History Tobacco Use Types [...] Pathologist Sig nature IgE 15 <158 IU/mL [facility] Specimen Blood - Venous blood (substance) Performing Organization Address City/State/ZIP Code Phon e Number [facility] [address] [place] [address] SERVICES documented in this encounter Visit Diagnoses Not on filedocumented in this encounter Care Teams Cash Surrender Calculator Relationship Specialty Start Date End Date Marifer Marino NP PCP - General 11/29/08 1 [place], [place] [id number] documented as of this encounter
--- OUTSIDE RECORDS SUMMARY | 2022-02-06 11:55 | XMS_ITS | Encounter Summary ---
:[address] [facility] Address [address] [place] [address] Care Team Providers Name Role Phone Lidia Marinohleen OSORIO Primary Care Provider Encounter Details Date Type Department Care Team Description 11/23/2009 Results Only [facility] Deep Bravo MD Laboratory Services - [address] [place] [address] 7[address] [facility] [place] [address] [phone] Social History Tobacco Use Types Packs/Day Years Used Date Never Assessed Sex Assigned at Date Recorded Not on file documented as of this encounter Plan of Treatment Not on filedocumented as of this encounter Procedures Procedure Name Priority Date/Time Associated Diagnosis Comme nts SURGICAL PATHOLOGY Routine 11/23/2009 0:00 EDT Re sults for this procedure are i n the results section. documented in this encounter Results SURGICAL PATHOLOGY (11/23/2009 0:00 EDT) Pathology Report: SURGICAL PATHOLOGY REPORT ? [facility] Reports generated via [employer] interface contain original data; ? LAB however they are lacking the format of the original report. ? Caution should be taken when reading/interpreting unformatted reports. ? Name: ? JUDITH, KAJAL R ? Accession #: ? [id number] ? : ? 1945 (Age: 64) ??F ? Collec t Date: ? 11/23/2009 ? Location: ? [facility] ? R eceive Date: ? 11/23/2009 ? Provider: DEEP WALKO MD ? Copy to: KATY FISHER MD ? Final Pathologic Diagnosis: ? A. ?Ileocecal v alve, polyp, biopsy: ? 1. ?Submucosal lipoma. ? B. ?Colon, rand om, biopsies: ? 1. ?Colonic muc zackery with mild increased intraepithelial lymphocytes. ??See comment. ? C. ?Rectum, ran dom, biopsies: ? 1. ?Colonic muc zackery with no specific pathologic features. ? Comment: ? The histologic featur es of the biopsies show mild increased intraepithelial lymphocytes. However, the la kim propria lacks a significant increase in ? lymphoplasmacytic infiltrate and the surface epithelium does not show ? unequivocal degeneration. Th ere is surface epithelial hyperplasia suggesting ? reactive changes. The findin gs are non specific. ??Chamfering Machine Operator sections of ? this case have been reviewed at intradepartmental consultation conference. ??(Dr. Storey)/[facility] ? Document reviewed and electr onically signed by: ? Wing Navneeta, MD ? Report ??Date: 11/28/2009 15 :10 ? By the signature above, the attending physician certifies that he/she has ? personally conducted a gross and/or microscopic examination of the described ? specimens and rendered or co nfirmed the above diagnosis. ? Specimen(s) Received: ? A. ?Ileocecal v alve polyp ? B. ? Bx random colon ? C. ? Bx random rectum ? Clinical History: ? Abd pain and rectal b leeding; diarrhea ? Gross Description: ? Received in Hari' s fixative labelled Kajal Bush and #1 ileocecal valve polyp is a 1.5 x 1.1 x 1.0 cm polypoid structure. ??The resection margin ?? is inked black. ??The specim en is serially sectioned and submitted entirely as ?? (A1) through (A3). ? Received in Hari's fixat mejia labelled Kajal Bush and #2 bx random ? colon are eight biopsies wh ich vary in size from 0.3 x 0.2 x 0.2 cm up to 0.7 x 0.3 x 0.2 cm. ??The specimen s are submitted intact as (B1) through (B3). ? Received in [facility]'s fixat mejia labelled Kajal Bush and #3 bx random ? rectum are four biopsies wh ich vary in size from 0.2 x 0.2 x 0.2 cm up to 0.5 x 0.2 x 0.1 cm. ??The specimen s are submitted intact as (C1) and (C2). ??(ERICK ? Scarlet)/debbien ? End of Report ? Specimen Performing Organization Address City/[facility] Code Phon e Number [facility] [address] [place] [address] SERVICES [facility] [address] [place] [address] documented in this encounter Visit Diagnoses Not on filedocumented in this encounter Care Teams Concierge Manager Relationship Specialty Start Date End Date Marifer Marino NP PCP - General 11/29/08 1 [place] [address] documented as of this encounter
--- OUTSIDE RECORDS SUMMARY | 2022-02-06 11:55 | XMS_ITS | Encounter Summary ---
:1945 Author Organization [facility] Address [address] [place] [address] Care Team Providers Name Role Phone Unavailable Primary Care Provider Unavailable Encounter Details Date Type Department Care Team Description 08/18/1999 Hospital Encounter [facility] - Prem Dowell Prospect MD 1 [place] [address] Social History Tobacco Use Types Packs/Day Years [...] Code Phon e Number [facility] [address] [facility] [address] [facility] [address] [place], [place] [address] documented in this encounter Visit Diagnoses Not on filedocumented in this encounter
--- OUTSIDE RECORDS SUMMARY | 2022-02-06 11:55 | XMS_ITS | Encounter Summary ---
:1945 Author Organization [facility] Address [address] [place] [address] Care Team Providers Name Role Phone Marifer Marino NP Primary Care Provider Shmuel Soni MD Primary Care Provider Unavailable Encounter Details Date Type Department Care Team Description 08/16/1999 Hospital Encounter [facility] - Darrius Lemons MD 111 [facility], [facility] [address] [place] [address] Other Unknown, Provider, [address] [place], [place] [id number] Social History Tobacco Use Types Packs/Day Years Used Date Never Assessed Sex Assigned at Date Recorded Not on file documented as of this encounter Plan of Treatment Not on filedocumented as of this encounter Visit Diagnoses Not on filedocumented in this encounter Care Teams Legend Maker Relationship Specialty Start Date End Date Marifer Marino NP PCP - General 11/29/08 [address] [place], [place] [address] Shmuel Soni MD PCP - General 11/01/08 11/28/08 documented as of this encounter
--- OUTSIDE RECORDS SUMMARY | 2022-02-06 11:55 | XMS_ITS | Encounter Summary ---
:1945 Author Organization [facility] Address [address] [place] [address] Care Team Providers Name Role Phone Marifer Marino NP Primary Care Provider Shmuel Soni MD Primary Care Provider Unavailable Encounter Details Date Type Department Care Team Description 10/22/2001 Results Only [facility] - Mónica Crystal CHIEF CONTROLLER TOWER conversion [address] [place] [address] Social History Tobacco Use Types Packs/Day Years Used Date Never Assessed Sex Assigned at Date Recorded Not on file documented as of this encounter Plan of Treatment Not on filedocumented as of this encounter Procedures Procedure Name Priority Date/Time Associated Diagnosis Comme nts CYTOPATHOLOGY Routine 10/22/2001 0:00 EDT Results for this procedure are i n the results section . documented in this encounter Results CYTOPATHOLOGY (10/22/2001 0:00 EDT) Pathology Report: CYTOPATHOLOGY REPORT [facility] Reports generated via electronic interface contain karl ginal data; however they are lacking the format of the original re port. Caution should be taken when reading/interpreting unfo rmatted reports. Name: ? LEEANNE BUSH ? Accession #: ? [id number] : ? 1945 (Age: 56) ??F ?Collect Date: ? 10/04 Location: ? [facility] ? Receive Date : ? 10/24/2001 Provider: ?MÓNICA MURRAY CHIEF CONTROLLER TOWER Copy to: ? Specimen/Source: ?ThinPrep Pap Test, Cervix/ Endocervix Last Menstrual Period: ? 1996 Other: ? Additional clinical information: Hx of melanoma ? SPECIMEN ADEQUACY ? Satisfactory for Evaluation - transformation zone component absent GENERAL CATEGORIZATION ? Negative for Intraepithelial Lesion or Malignan cy INTERPRETATION ? Fungal organisms pres ent morphologically consistent with Renate species. ? Document reviewed and electronically signed by: ? PRIMO Yee(ASCP) ? Report Date: ??10/27/2001 15:14 End of Report Specimen Performing Organization Address City/State/ZIP Code Phon e Number [facility] [address] [place] [address] SERVICES [facility] [address] [place] [address] documented in this encounter Visit Diagnoses Not on filedocumented in this encounter Care Teams Electro Mechanic Relationship Specialty Start Date End Date Marifer Marino NP PCP - General 11/29/08 1 [place] [id number] Shmuel Soni MD PCP - General 11/01/08 11/28/08 documented as of this encounter
--- OUTSIDE RECORDS SUMMARY | 2022-02-06 11:55 | XMS_ITS | Encounter Summary ---
:1945 Author Organization [facility] Address [address] [place] [address] Care Team Providers Name Role Phone Ned Marifer AC Primary Care Provider Shmuel oSni MD Primary Care Provider Unavailable Encounter Details Date Type Department Care Team Description 02/27/2006 Results Only [facility] - Albert Elizondo MD conversion [address] [facility] [address] [place] [address] [place], [place] [phone] (Wo rk) Social History Tobacco Use Types [...] ? LEEANNE BUSH ? Accession #: ? [id number] ? : ? 1945 (Age: 60) ??F [...] descent. ??There is papillary dermal fibroplasia. ??(Kwasi Branch)/[facility] Document reviewed and electronically signed [...] Organization Address City/State/ZIP Code Phon e Number [facility] [address] [place] [address] SERVICES [facility] [address] [place] [address] documented in this encounter Visit Diagnoses Not on filedocumented in this encounter Care Teams Marketing Strategy Manager Relationship Specialty Start Date End Date Marifer Marino NP PCP - General 11/29/08 1 [place], [place] [address] Shmuel Soni MD PCP - General 11/01/08 11/28/08 documented as of this encounter
--- OUTSIDE RECORDS SUMMARY | 2022-02-06 11:55 | XMS_ITS | Encounter Summary ---
:[address] [facility] Address [address] [place] [address] Care Team Providers Name Role Phone Unavailable Primary Care Provider Unavailable Encounter Details Date Type Department Care Team Description 09/12/1999 Hospital Encounter [facility] - Orville Mckee Jr., [facility] 111 [facility] [address] [place] [address] Drive [phone] [address] [place] [address] (Wo rk) Social History Tobacco [...] ? KAJAL BUSH ? Accession #: ? [id number] ? : ? 1945 (Age: 53) ??F [...] ? material previously reviewed at our institution ([id number], S00- [id number]) from this anatomic site. ??The current wi [...] End of Report Specimen Performing Organization Address City/[facility] Phon e Number [facility] [address] [place] [address] SERVICES [facility] [address] [place] [address] NM INJECTION ONLY (09/12/1999 12:32 EDT) Anatomical [...] Organization Address City/State/ZIP Code Phon e Number [facility] [address] [facility] [address] [facility] [address] [place], [place] [address] documented in this encounter Visit Diagnoses Not on filedocumented in this encounter
--- OUTSIDE RECORDS SUMMARY | 2022-02-06 11:55 | XMS_ITS | Encounter Summary ---
:1945 Author Organization [facility] Address [address] [place] [address] Care Team Providers Name Role Phone Marifer Marino NP Primary Care Provider Shmuel Soni MD Primary Care Provider Unavailable Encounter Details Date Type Department Care Team Description 01/23/2006 Results Only [facility] - Mónica Crystal VENDOR MANAGEMENT SPECIALIST conversion [address] [place] [address] Social History Tobacco Use Types Packs/Day Years [...] ? LEEANNE BUSH ? Accession #: ? [id number] : ? 1945 (Age: 60) ??F ?Collect Date: ? 01/05 Location: ? [facility] ? Receive Date : ? 01/25/2006 Provider: ?MÓNICA MURRAY VENDOR MANAGEMENT SPECIALIST Copy to: ? Specimen/Source: ? ThinPrep Pap Test, Vagina, processed on [employer] ThinPrep Imaging System, with manual evaluation Last [...] Address City/State/ZIP Code Phon e Number [facility] [address] [place] [address] SERVICES [facility] [address] [place] [address] documented in this encounter Visit Diagnoses Not on filedocumented in this encounter Care Teams Dental Ceramist Helper Relationship Specialty Start Date End Date Marifer Marino NP PCP - General 11/29/08 1 [place] [address] Shmuel Soni MD PCP - General 11/01/08 11/28/08 documented as of this encounter
--- OUTSIDE RECORDS SUMMARY | 2022-02-06 11:55 | XMS_ITS | Encounter Summary ---
:1945 Author Organization [facility] Address [address] [place] [address] Care Team Providers Name Role Phone Unavailable Primary Care Provider Unavailable Encounter Details Date Type Department Care Team Description 01/19/2000 - Hospital Encounter [facility] Orville Mckee 01/20/2000 General Surgery Unit MD Sierra 111 [facility] [address] [place] [address] Drive [phone] [address] [place] [address] Social History Tobacco Use Types Packs/Day Years Used Date Never Assessed Sex Assigned at Date Recorded Not on file documented as of this encounter Discharge Disposition Disposition Code Departure Means Destination Home or Self Care documented in this encounter Plan of Treatment Not on filedocumented as of this encounter Procedures Procedure Name Priority Date/Time Associated Diagnosis Comme [facility] SURGICAL PATHOLOGY Routine 01/19/2000 0:00 EDT Re sults for this procedure are i n the results section. documented in this encounter Results SURGICAL PATHOLOGY (01/19/2000 0:00 EDT) Pathology Report: SURGICAL PATHOLOGY REPORT [facility] Reports generated via electronic interface contain karl ginal data; LAB however they are lacking the format of the original re port. Caution should be taken when reading/interpreting unfo rmatted reports. Name: ? LEEANNE BUSH ? Accession #: ? [id number] ? : ? 1945 (Age: 54) ??F ? Collect Date: ? 01/19/2000 ? Location: ? [facility] ? Receive Date: ? 01/19/20 00 ? Provider: ORVILLE MCKEE MD Copy to: ? Final Pathologic Diagnosis: ? Skin of ear, left graft, excision: 1. ?Epidermal r eparative change with dermal scar, inflammation, and foreign body giant cell reaction. 2. ?Chronic gadiel ar damage with mild atypical melanocytic hyperplasia. Document reviewed and electronically signed by: Philly Branch MD Report ??Date: 01/29/2000 18:37 By the signature above, the attending physician certif ies that he/she has personally conducted a gross and/or microscopic examin ation of the described specimens and rendered or confirmed the above diagnosi s. Specimen(s) Received: ? Excision of skin graft L ear Clinical History: ? Hx melanoma Gross Description: ? Received in normal sa line labelled Rachelle and 1-excision skin graft L ear is a semi-lunar shaped elliptical excision of skin which measures 1.0 x 0.6 cm and is excised to a depth of 0.6 cm. ??Also received in the same container is a portion of pink-callahan skin which measures 5.0 x 2.0 x 0.1 to 0.2 cm. ??The cutaneous surface of the lar kirsten pink-callahan portion of skin is unremarkable. ??The smaller ellipse comes unorie nted and is inked entirely in blue along its convex surface and black along the concave surface. ??It is serially sectioned with the distal tips submitted revers e en face as (A1). ??The body of the smaller ellipse is submitted as (A2) and (A3 ). ??The larger sheet of skin is serially sectioned and resources representative sections (comprising 30% of t he specimen) are submitted as (A4). ??(Dr. Campo)/dem End of Report Specimen Performing Organization Address City/State/ZIP Code Phon e Number [facility] [address] [place] [address] SERVICES [facility] [address] [place] [address] documented in this encounter Visit Diagnoses Not on filedocumented in this encounter
--- OUTSIDE RECORDS SUMMARY | 2022-02-06 11:55 | XMS_ITS | Encounter Summary ---
:1945 Author Organization [facility] Address [address] [place] [address] Care Team Providers Name Role Phone Ned Marifer AC Primary Care Provider Shmuel Soni MD Primary Care Provider Unavailable Encounter Details Date Type Department Care Team Description 10/16/1999 Hospital Encounter [facility] - Abel Casas MD 30 [facility] [address] [place] [address] Other Unknown, Provider, [address] [place] [address] Social History Tobacco Use Types [...] ? LEEANNE BUSH ? Accession #: ? [id number] ? : ? 1945 (Age: 54) ??F [...] Gross Description: ? Received in formalin labelled [place] and left leg is a callahan, circular 0.3 cm skin punch excised to a depth of 0.3 cm. ??The specimen is entirely submitted in one cassette. ??(Carola Bustillo)/psychiatric End of Report Specimen Performing Organization Address City/State/ZIP Code Phon e Number [facility] [address] [place] [address] SERVICES [facility] [address] [place] [address] documented in this encounter Visit Diagnoses Not on filedocumented in this encounter Care Teams V Block Saw Operator Relationship Specialty Start Date End Date Marifer Marino NP PCP - General 11/29/08 1 [place], [place] [address] Shmuel Soni MD PCP - General 11/01/08 11/28/08 documented as of this encounter
--- OUTSIDE RECORDS SUMMARY | 2022-02-06 11:55 | XMS_ITS | Encounter Summary ---
:1945 Author Organization [facility] Address [address] [place] [address] Care Team Providers Name Role Phone Unavailable Primary Care Provider Unavailable Encounter Details Date Type Department Care Team Description 02/27/2006 Hospital Encounter [facility] Tisha Natarajan, [facility] Unknown, Provider, [address] [place] [address] Social History Tobacco Use Types Packs/Day Years [...] EN ? LAB Reports generated via electr [employer] interface contain original data; ? however they are lacking the format of the original report. ? Caution should be taken when reading/interpreting unformatted reports. ? Name: ? LEEANNE BUSH ? Accession #: ? [id number] ? : ? 1945 (Age: 62) ??F ?Collect Date: ? 02/02/2008 ? Location: ? [facility] ? Receive Date: ? 02/02/2008 ? Provider: ?CHERYL M RO WLETT EXPERIMENTAL PHYSICIST ? Copy to: ? Specimen/Source: ? Pap [...] Organization Address City/State/ZIP Code Phon e Number [facility] [address] [place] [address] SERVICES [facility] [address] [place] [address] documented in this encounter Visit Diagnoses Not on filedocumented in this encounter
--- OUTSIDE RECORDS SUMMARY | 2022-02-06 11:55 | XMS_ITS | Encounter Summary ---
:1945 Author Organization [facility] Address [address] [place] [address] Care Team Providers Name Role Phone Ned Marifer AC Primary Care Provider Shmuel Soni MD Primary Care Provider Unavailable Encounter Details Date Type Department Care Team Description 04/12/2000 Hospital Encounter [facility] - Abel Casas MD 30 [facility] [address] [place] [address] Other Unknown, Provider, [address] [place] [address] Social History Tobacco Use Types Packs/Day Years Used Date Never Assessed Sex Assigned at Date Recorded Not on file documented as of this encounter Plan of Treatment Not on filedocumented as of this encounter Procedures Procedure Name Priority Date/Time Associated Diagnosis Comme [facility] SURGICAL PATHOLOGY Routine 04/12/2000 0:00 EST [...] ? LEEANNE BUSH ? Accession #: ? [id number] ? : ? 1945 (Age: 54) ??F [...] and entirely submitted in one cassette. ??(Dr. Rosenberg)/[facility] End of Report Specimen Performing Organization Address City/State/ZIP Code Phon e Number [facility] [address] [place] [address] SERVICES [facility] [address] [place] [address] documented in this encounter Visit Diagnoses Not on filedocumented in this encounter Care Teams Filling Mixer Relationship Specialty Start Date End Date Marifer Marino NP PCP - General 11/29/08 1 [place], [place] [address] Shmuel Soni MD PCP - General 11/01/08 11/28/08 documented as of this encounter
--- OUTSIDE RECORDS SUMMARY | 2022-02-06 11:55 | XMS_ITS | Encounter Summary ---
:1945 Author Organization [facility] Address [address] [place] [address] Care Team Providers Name Role Phone Marifer Marino OSORIO Primary Care Provider Encounter Details Date Type Department Care Team Description 01/09/2018 Results Only [facility] Tania Rey, [address] [address] (Wo rk) Social History Tobacco Use Types Packs/Day Years Used Date Never Assessed Sex Assigned at Date Recorded Not on file documented as of this encounter Plan of Treatment Not on filedocumented as of this encounter Procedures Procedure Name Priority Date/Time Associated Diagnosis Comme [facility] SURGICAL PATHOLOGY Routine 01/09/2018 16:51 Resul ts for this EDT procedure are i n the results section. documented in this encounter Results SURGICAL PATHOLOGY (01/09/2018 16:51 EDT) Pathology Report: SURGICAL PATHOLOGY REPORT [facility] Reports generated via electronic interface contain karl ginal data; LABORATORY however they are lacking the format of the original re port. SERVICES Caution should be taken when reading/interpreting unfo rmatted reports. Name: ? LEEANNE BUSH ? Accession #: ? [id number] ? : ? 1945 (Age: 8 1) [...] Organization Address City/State/ZIP Code Phon e Number [facility] [address] [place] [address] SERVICES documented in this encounter Visit Diagnoses Not on filedocumented in this encounter Care Teams Dressmaker Or Tailor Relationship Specialty Start Date End Date Marifer Marino NP PCP - General 11/29/08 1 [place], [place] [address] documented as of this encounter
--- OUTSIDE RECORDS SUMMARY | 2022-02-06 11:55 | XMS_ITS | Encounter Summary ---
:1945 Author Organization [facility] Address [address] [place] [address] Care Team Providers Name Role Phone Marifer Marino NP Primary Care Provider Shmuel Soni MD Primary Care Provider Unavailable Encounter Details Date Type Department Care Team Description 08/15/1999 Hospital Encounter [facility] - Darrius Gonzalez MD 111 [facility], [facility] 2 [place] [address] Other Unknown, Provider, [address] [place] [address] Social History Tobacco Use Types Packs/Day Years Used Date Never Assessed Sex Assigned at Date Recorded Not on file documented as of this encounter Plan of Treatment Not on filedocumented as of this encounter Procedures Procedure Name Priority Date/Time Associated Diagnosis Comme [facility] SURGICAL PATHOLOGY Routine 08/15/1999 15:00 Resul [...] ? LEEANNE BUSH ? Accession #: ? [id number] ? : ? 1945 (Age: 53) ??F [...] s. Specimen(s) Received: TISSUE SUBMITTED: ? [facility] [id number] (11) CLINICAL DATA: ? Melanoma Gross Description: GROSS: ? Eleven slides are received for review from [facility], ? one each labelled [id number] A1, [id number] A2 , [id number] A3, ? [id number] A4, [id number] A5, [id number] A5 r ecut, [id number] ? A6, [id number] B1, [id number] B2, [id number] B3, [id number] ? B4. ?? End of Report Specimen Performing Organization Address City/State/ZIP Code Phon e Number [facility] [address] [place] [address] SERVICES [facility] [address] [place] [address] documented in this encounter Visit Diagnoses Not on filedocumented in this encounter Care Teams Dredge Worker Relationship Specialty Start Date End Date Marifer Marino NP PCP - General 11/29/08 1 [place] [address] Shmuel Soni MD PCP - General 11/01/08 11/28/08 documented as of this encounter
--- NOTE | 2022-02-06 12:18 | ED.GENADUL_ITS ---
Discharge Plan Disposition Patient Disposition: HOME Condition: Stable Discharge Details Clinical Impression: Head injury, Laceration of lip Primary Care Provider: Leeanne Schultz V ED Provider: Turner Olivia Home Meds and New Rx's Prescriptions: Continued levalbuterol tartrate 45 mcg/actuation HFA aerosol inhaler 2 inh inhalation Q6H Qty: 15 11RF Advair HFA 230-21 mcg/actuation HFA aerosol inhaler 2 puff inhalation BID Qty: 12 12RF albuterol sulfate 2.5 MG/3 ML solution for nebulization 2.5 mg Inhalation D9O-Q3P Qty: 1 Rx Instructions: 1 nebulizer treatment every 6 to 8 hours per day as needed for wheezing azelastine 137 MCG/0.137 ML aerosol,spray 2 spry NS BID budesonide-formoterol [Symbicort] 10.2 GM HFA aerosol inhaler 2 puff Inhalation BID Metamucil 3.4 gram/5.4 gram powder 2 tsp PO DAILY Rx Instructions: mix into at least 4 oz water or juice before administering vitamin B complex Tablet 1 tab PO DAILY albuterol sulfate [Ventolin HFA] 90 mcg/actuation HFA aerosol inhaler 2 puff inhalation 6XD citalopram [Celexa] 40 MG tablet 40 mg PO .HS amlodipine 5 MG tablet 2.5 mg PO DAILY zolpidem 5 MG tablet 10 mg PO .HS bupropion HCl 300 MG tablet extended release 24 hr 300 mg PO DAILY clonazepam [Klonopin] 0.5 MG tablet 0.5 mg PO PRN PRN levothyroxine [Euthyrox] 137 mcg tablet 137 mcg PO DAILY Label Comments: TAKE 1 TABLET BY MOUTH ONCE DAILY Discharge Instructions Additional Instructions: At this time a CT of your head was recommended but declined. Please watch for new or worsening symptoms and return to the ER for any concerns. The lip laceration does not require any closure at this time. Cool compresses as tolerated. Otherwise please contact your primary care provider to discuss your ER visit and need for outpatient reevaluation. Discharge Data Discharge Date/Time-TO BE ENTERED AT DEPARTURE: 02/06/22 12:28 Medical Decision Making 76-year-old female, not anticoagulated, presents for a head injury status post mechanical fall just prior to arrival. She states that she tripped on the curb because it was covered in leaves. She denies LOC or neck pain. We discussed obtaining CT imaging of her head given her injury and age but she declines, understands the inherent risks of not pursuing CT imaging. Her primary concern is that of her lip laceration and whether it may need sutures or not. There are 2 separate abrasions and a well approximated 0.5 cm laceration. When the patient flips her upper lid inside out she is able to have the laceration open. But when she does not put her lip and is unnatural position change again it is well approximated. We discussed that there is no active bleeding, and at rest there is no gaping of the laceration. No clear indication to initiate suturing. Patient was initially hesitant and we once again discussed options, I did let her know that I was happy to place a single suture. After some more shared decision making opted not to pursue suturing which I believe is completely reasonable. Standard discharge and return precautions were provided. Patient understands, is agreeable to this plan, and has no additional questions or concerns upon discharge. This documentation was generated using Extra[employer] system, please disregard any oddities of phrase or misspellings. Medical Records Medical records reviewed: Yes I reviewed the patient's medical records. HPI General Mode of arrival: ambulatory . Date/Time Provider Initiated Documentation: 02/06/22 11:50 . Limitations to Documentation: no limitations . Information obtained by: patient . History of Present Illness 76 year old F presents to the emergency department with the chief complaint of Fall, head/face injury, described as moderate, with intensity rated at 4. Quality is described as aching, and is localized to the face. Patient reports no radiation. Patient started experiencing this hour(s) (1) and it has been constant. No relieving factors improve symptom(s), No exacerbating factors reported . Patient notes no other symptoms.. Patient did receive the following treatments prior to arrival, other (tylenol) Related Data Home Medications Medication Instructions Recorded Confirmed amlodipine 5 mg tablet 2.5 mg PO DAILY 01/22/13 02/06/22 bupropion HCl 300 mg 24 hr tablet, 300 mg PO DAILY 01/22/13 02/06/22 extended release citalopram 40 mg tablet (Celexa) 40 mg PO .HS 01/22/13 02/06/22 zolpidem 5 mg tablet 10 mg PO .HS 01/22/13 02/06/22 clonazepam 0.5 mg tablet (Klonopin) 0.5 mg PO PRN PRN 03/13/14 02/06/22 Symbicort 160 mcg-4.5 2 puff inhalation BID 11/22/17 02/06/22 mcg/actuation HFA aerosol inhaler (budesonide-formoterol) albuterol sulfate 2.5 mg/3 mL 2.5 mg inhalation [id number] #1 vial 11/22/1702/06 (0.083 %) solution for nebulization azelastine 137 mcg (0.1 %) nasal 2 spry NS BID 11/22/17 02/06/22 spray aerosol levothyroxine 137 mcg tablet 137 mcg PO DAILY 11/11/20 02/06/22 (Euthyrox) albuterol sulfate 90 mcg/actuation 2 puff inhalation 6XD 11/10/21 02/06/22 aerosol inhaler (Ventolin HFA) psyllium husk 3.4 gram/5.4 gram 2 tsp PO DAILY 11/10/21 02/06/22 oral powder (Metamucil) vitamin B complex 1 tab PO DAILY 11/10/21 02/06/22 fluticasone propionate 230 2 puff inhalation BID #12 grams 11/14/21 02/06/22 mcg-salmeterol 21 mcg/actuation HFA inhaler (Advair HFA) levalbuterol tartrate 45 2 inh inhalation Q6H #15 grams 11/14/21 02/06/22 mcg/actuation aerosol inhaler Previous Rx's Medication Instructions Recorded fluticasone propionate 230 2 puff inhalation BID #12 grams 11/14/21 mcg-salmeterol 21 mcg/actuation HFA inhaler (Advair HFA) levalbuterol tartrate 45 2 inh inhalation Q6H #15 grams 11/14/21 mcg/actuation aerosol inhaler Allergies Allergy/AdvReac Type Severity Reaction Status Date / Time iopamidol AdvReac Intermediate Anaphylaxsi Unverified 02/06/22 11:51 s montelukast sodium AdvReac Intermediate Headache Unverified 02/06/22 11:51 [From Singulair] morphine AdvReac Intermediate Cardiac Unverified 02/06/22 11:51 Dysrythmia nitrofurazone AdvReac Mild Nausea Unverified 02/06/22 11:51 shrimp Allergy Severe Anaphylaxsi Uncoded 02/06/22 11:51 s General Stated Complaint: HeadInjury MARYA: 3 Review of Systems Constitutional Constitutional: Denies headache(s) and Denies weakness Eyes Eyes: Denies change in vision ENT Ears, Nose, Mouth, and Throat: Denies headache(s) and Denies neck pain Cardiovascular Cardiovascular: Denies chest pain and Denies dyspnea Respiratory Respiratory: Denies dyspnea Gastrointestinal Gastrointestinal: Denies nausea and Denies vomiting Musculoskeletal Musculoskeletal: Denies back pain, Denies neck pain, Denies numbness and Denies tingling Neurologic Neurologic: Denies headache(s), Denies numbness, Denies tingling and Denies weakness Hematologic/Lymphatic Hematologic/Lymphatic: Denies easy bleeding and Denies easy bruising PFSH All Active Problems Head injury (Acute) Laceration of lip (Acute) Asthma (Chronic) Chest pain (Acute) Conductive hearing loss, external ear (Acute) Perforation of colon as colonoscopy complication (Acute) Medical History Abnormal finding on EKG Anxiety Depression Facial paresthesia Female bladder prolapse Fibromyalgia Hearing loss History of IBS Hypothyroid Insomnia Malignant melanoma Surgical History Abdominal hysterectomy Arthroscopy, Shoulder right Bladder Surgery Colonoscopy - MAC Replacement of total knee joint right Family History Other Constipation Social History Smoking/Tobacco Use Status: Former Tobacco Use Smoking risk assessment performed?: Yes Alcohol Intake: current Alcohol Intake frequency: 0-2 drinks per day Alcohol type: wine Drug use: Never Substance use type: does not use Household members: spouse Do you feel safe at home: Yes Do you feel safe in your relationship?: Yes Exam Const General: cooperative, healthy appearing, comfortable and no acute distress Orientation: alert, awake and oriented x3 HENMT Head: normocephalic Head images: 1. Contusion. Mild tenderness. No crepitus. Skin is intact Ears: external ears normal, TM's normal bilaterally and EAC's normal General nose exam: external nose normal Mouth: moist mucous membranes Mouth/tongue images: 1. Abrasion that crosses the vermilion border. No laceration. 2. Abrasion, centrally just along the anterior aspect of her lip, there is a well approximated 0.5 cm laceration. No bleeding. This does not cross the vermilion border. When she closes her mouth you can still appreciate the abrasion but you cannot see the laceration. Teeth and gingiva: dentition normal Throat: posterior oropharynx normal Eyes General: appearance normal, both eyes and all related structures Conjunctivae: conjunctivae normal Neck Neck: normal visual inspection, full ROM, trachea midline, supple and nontender Resp Effort & Inspection: normal respiratory effort and able to speak in complete sentences Skin General skin exam: no rashes or lesions noted Neuro General: patient alert, patient awake, patient oriented x3, moves all extremities and no focal motor deficits Cranial Nerves: CN's II-XI intact bilaterally Cognition: normal cognition Speech: speech normal Gait: normal gait Motor: muscle tone normal throughout and strength 5/5 throughout Sensory Exam: no sensory deficits noted Extrem General: normal to inspection and full ROM Psych Appearance: grossly normal Mental Status: mental status grossly normal Course Vital Signs Vital signs: Vital Signs Temperature 36.0 C L 02/06/22 11:44 Pulse 84 02/06/22 11:44 Respiratory Rate 18 02/06/22 11:44 Blood Pressure 136/73 02/06/22 11:44 Pulse Oximetry 98 02/06/22 11:44 Temperature 36.0 C L 02/06/22 11:44 Temperature Source Temporal Artery Scan 02/06/22 11:44 Pulse 84 02/06/22 11:44 Respiratory Rate 18 02/06/22 11:44 Respiratory Effort Non-Labored 02/06/22 11:49 Blood Pressure 136/73 02/06/22 11:44 Blood Pressure Position Sitting 02/06/22 11:44 Pulse Oximetry 98 02/06/22 11:44 Oxygen Delivery Method Room Air 02/06/22 11:44 Oxygen Flow Rate 0 02/06/22 11:44 Pain Level 6 02/06/22 11:44 PAWSS Have you Been Recently Intoxicated or Drunk Within the Last 30 days?: No Have you Ever Experienced Previous Episodes of Alcohol Withdrawal?: No Have you ever Experienced Withdrawal Seizures?: No Have you ever Experienced Delirium Tremens(DT)s?: No Have you ever undergone Alcohol Rehabilitation Treatment (i.e, inpt ot outpatient treatment programs)?: No Have you ever Experienced Blackouts?: No Have you ever Combined Alcohol with other Downers within the last 90 days?: No Have you ever Combined Alcohol with any other Substance of Abuse during the last 90 days?: No Positive Blood Alcohol level on Presentation? [PCS.BAL]: No Evidence of Increased Autonomic Activity (i.e. HR>120, tremor, sweating, agitation, nausea)?: No Result: 0
== END 2022-02-06 12:28 | disposition home or self-care (01) ==
PROVIDERS: Emergency Provider Physician Assistant; PCP Family Medicine
DX: S01.511A Laceration without foreign body of lip, initial encounter (principal); Z87.891 Personal history of nicotine dependence; W01.0XXA Fall on same level from slipping, tripping and stumbling without subsequent striking against object, initial encounter
CPT/HCPCS: 99281; 99282

== ENCOUNTER → 2022-03-09 01:03 | Outpatient (CLI) | payer MEDICARE, SELFPAY ==
--- NOTE | 2022-03-09 | DI.DEXA_ITS ---
Exam(s) XR DEXA BONE DENSITY W/WO AARON EXAM: XR DEXA BONE DENSITY W/WO AARON CLINICAL HISTORY: SCREENING FOR OSTEOPOROSIS IN POSTMENOPAUSAL WOMAN,Z78.00,PREVENTATIVE HEAL TECHNIQUE: Routine DEXA evaluation of the lumbar spine, hip, or forearm. COMPARISON: No exams were available for comparison FINDINGS: Performed on a Hologic unit. Lateral image: No compression fracture evident. Lumbar Spine total T-score: 0.3 Hip total T-score:-1.3 Independent reading at the level of the femoral neck yields at T-score of -2.2. Forearm total T-score: -1.1 IMPRESSION: Bone mineral density measures in the osteopenia range. Fracture risk is moderate. Note: Any spine fracture indicates 5x risk for subsequent spine fracture and 2x risk for subsequent h ip fracture. World Health Organization criteria for BMD interpretation classify patients: Normal...... T- Score at or above -1.0 Osteopenic... T- Score between -1.0 and -2.5 Osteoporosis... T-Score at or below -2.5
--- OUTSIDE RECORDS SUMMARY | 2022-03-09 01:11 | XMS_ITS | Encounter Summary ---
:1945 Author Organization [facility] [place] [address] Care Team Providers Name Role Phone Leeanne Schultz MD Primary Care Provider Encounter Details Date Type Department Care Team Description 11/22/2020 Office Visit Urology at [facility] Megan Plaza Pelvic organ prolapse [facility] MD Felisha quantification stage 3 [facility] [place] [address] UROLOGY DEPT. [phone] [place], [place] [address] Social History Tobacco Use Types [...] Dermatology [place] Edgar MD [facility] ER DR DIANA CANAS-DERMAT [place], [place] [address] (Wo rk) documented as of this encounter Visit Diagnoses Diagnosis Pelvic organ prolapse quantification sta ge 3 rectocele documented in this encounter Care Teams Software Product Manager Relationship Specialty Start Date End Date Leeanne Schultz MD PCP - General 10/28/13 [address] [place] [address] documented as of this encounter
--- OUTSIDE RECORDS SUMMARY | 2022-03-09 01:11 | XMS_ITS | Encounter Summary ---
:1945 Author Organization [facility] [place] [address] Care Team Providers Name Role Phone Leeanne Schultz MD Primary Care Provider Encounter Details Date Type Department Care Team Description 10/06/2020 Office Visit Dermatology at [facility] [place] Edgar A ctinic keratosis; [place] PETER EIC (epidermal inclusion cyst); [address] [facility] Dermal nevus of other site; [place] [address] Lipoma, unspecified site; [phone] [facility] keratose s; RD-DERMATOLOGY History of melanoma; [place], [place] [address] History of melanoma in [...] back. ? August 2007, MIS treated in [place] ? Right lateral thigh. 07/17/2014,??MIS, left upper [...] bed use y She grew up in [place] with a history of extensive sun exposure. [...] signed by: [place] Edgar MD Dermatology [facility] documented in this encounter Plan of Treatment Upcoming Encounters Date Type Specialty Care Team Description 03/14/2022 Office Visit Dermatology [place] Edgar MD [facility] DR DIANA CANAS-DERMAT [place] [id number] (Wo rk) documented as of this encounter [...] skin documented in this encounter Care Teams Hazmat Cdl A Driver Relationship Specialty Start Date End Date Leeanne Schultz MD PCP - General 10/28/13 [address] [place] [address] documented as of this encounter
--- OUTSIDE RECORDS SUMMARY | 2022-03-09 01:11 | XMS_ITS | Encounter Summary ---
:1945 Author Organization [facility] [place] [address] Care Team Providers Name Role Phone Leeanne Schultz MD Primary Care Provider Reason for Visit Reason Comments Skin Lesion Encounter Details Date Type Department Care Team Description 12/11/2021 Office Visit D[facility]atology at [facility] Jose Miller MD [facility] [place] [place] [address] [facility]rheic [facility]atoses[facility] Periorificial dermatitis [address] [place] [address] Social History Tobacco Use Types Packs/Day Years [...] Fidel Miller MD FAAD at Dermatology at [facility] Patient's preferred name Ivet Preferred contact method [...] Answered all questions. Handout given. Periorificial Dermatitis [place] to red follicular papules on the chin [...] twice daily for 14 days. Handout from [employer] given to the patient. Follow-up: March 14 2022 for FSE. Return sooner as needed for suspicious lesion, new or worsening dermatitis. [] Recall placed [] Forwarded to business objects analyst [] Patient scheduled before exiting Scribe attestation: Minna Armendariz, RN has performed the documentation for this encounter in the presence of and acting as a scribe for MD PARKER Garcia. I performed the above scribed service and agree with the accuracy of the documentation in this encounter. Reviewed and signed by: Fidel Miller MD FAAD Dermatology [facility] documented in this encounter Plan of Treatment Upcoming Encounters Date Type Specialty Care Team Description 03/14/2022 Office Visit Dermatology [place] Edgar MD [facility] DR DIANA CANAS-DERMAT [place], [place] [address] (Wo rk) documented as of this encounter Visit Diagnoses Diagnosis Seborrheic keratoses Periorificial dermatitis documented in this encounter Care Teams Clay Caster Relationship Specialty Start Date End Date Leeanne Schultz MD PCP - General 10/28/13 [address] [place] [address] documented as of this encounter
--- OUTSIDE RECORDS SUMMARY | 2022-03-09 01:11 | XMS_ITS | Encounter Summary ---
:1945 Author Organization [facility] [place] [address] Care Team Providers Name Role Phone Leeanne Schultz MD Primary Care Provider Encounter Details Date Type Department Care Team Description 12/16/2020 Hospital Encounter Gastroenterology at [facility] Driss Gilbert, [facility] Kwasi fernán[place] [address] [facility] [phone] [place] [address] Social History Tobacco Use Types Packs/Day [...] the day after the procedure, use an ynhi-agt-ufybdme spray to numb yourthroat. Sucking on throat [...] occurs, please contact your Doctor. Please call [phone] before 8pm Mon-Fri with problems, questions or concerns. If you call after 8pm or on weekends, call the Hospital at [phone] and ask to speak to the Wire Fence Erector production control pegboard clerk and the debridging machine operator will contact that person for you. When should you call for help? Call [phone] anytime you think you may need emergency [...] any problems. Where can you learn more? [facility] View your After Visit Summary and more online at [email or web address] If you would like to provide feedback about your hospital experience, please call the Office of Patient and Family Relations at . If you have received this After Visit Summary in error, please immediately return it in person to the department, or notify the [facility] Privacy Office by calling toll free at between the hours of 8AM and 5PM to arrange for our retrieval of the documents at no cost to you. Content Version: 12.2 ?? 5203-0679 [employer]. Care instructions adapted under license by [facility]. If you have questions about a medical condition or this instruction, always ask your healthcare professional. [employer] disclaims any warranty or liability for your [...] the day after the procedure, use an gzug-rqj-ksvmuar spray to numb yourthroat. Sucking on throat [...] occurs, please contact your Doctor. Please call [phone] before 8pm Mon-Fri with problems, questions or concerns. If you call after 8pm or on weekends, call the Hospital at [phone] and ask to speak to the Wire Fence Erector production control pegboard clerk and the debridging machine operator will contact that person for you. When should you call for help? Call [phone] anytime you think you may need emergency [...] any problems. Where can you learn more? [facility] View your After Visit Summary and more online at [email or web address] If you would like to provide [...] cost to you. Content Version: 12.2 ?? 5137-6424 [employer]. Care instructions adapted under license by [facility]. If you have questions about a medical condition or this instruction, always ask your healthcare professional. [employer] disclaims any warranty or liability for your [...] Operative Note Patient Name: Leeanne Bush : [id number] MR#: [id number] Case Date: 12/16/2020 Surgeon: Surgeon(s) and Role: * Driss Gilbert MD - Primary * Porfirio Fountain MD - Fellow Procedure(s): UPPER EUS- ENDOSCOPIC ULTRASOUND EGD, UPPER GI ENDOSCOPY Please see Provation report for details. documented in this encounter Plan of Treatment Upcoming Encounters Date Type Specialty Care Team Description 03/14/2022 Office Visit Dermatology [place] Edgar MD [facility] [address] DIANA CANAS-DERMAT [place], [place] [address] (Wo rk) documented as of [...] Value Ref Test Analysis Performed At [facility] gist Range Method Time Signature UPPER [facility] ENDOSCOPIC Endoscopy ULTRASOUND _ Procedure Date: 12/16/2020 1:53 PM ? Patient Name: Leeanne Bush ? N: [id number] ? Date of : 1945 ? Age: 75 ? Order #: [id number] ? Instrument Name: [id number] ? Procedure: ? Upper EUS Indications: ? [...] Procedure Code(s): ?? --- Professional --- ? 97525, Esophagogastroduodenos copy, ? flexible, transoral; with end oscopic ? ultrasound examination limite d to the ? esophagus, stomach or duodenu m, and ? adjacent structures Diagnosis Code(s): ?? --- Professional --- ? 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 --- Technical --- ? 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 esophagus CPT copyright 2019 [employer]. All rights reserved. The codes documented in this report are preliminary and upon contact center professional review may be revised to meet current [...] Procedure) documented in this encounter Care Teams Certified First Assistant Relationship Specialty Start Date End Date Leeanne Schultz MD PCP - General 10/28/13 [address] [place] [address] documented as of this encounter
--- OUTSIDE RECORDS SUMMARY | 2022-03-09 01:11 | XMS_ITS | Encounter Summary ---
:1945 Author Organization [facility] [place] [address] Care Team Providers Name Role Phone Leeanne Schultz MD Primary Care Provider Encounter Details Date Type Department Care Team Description 09/28/2020 Telephone Urology at [facility] Megan Plaza, [facility] Kwasi fernández [place] [address] [facility] [phone] UROLOGY DEPT. [place], [place] [address] (Wo rk) Social History Tobacco Use Types Packs/Day Years Used Date Former Smoker Smokeless Tobacco: Never Used Alcohol Use Standard Drinks/Week Comments Yes 7 (1 standard drink = 0.6 oz pure alcoho l) Sex Assigned at Date Recorded Female 10/02/2020 6:58 PM EDT documented as of this encounter Miscellaneous Notes Telephone Encounter - Leeanne Benjamin - 09/28/2020 11:23 AM EDT Pt called to schedule NPWappointment that was delayed due to COVID at the patient's requested. Pt had surgery with Dr. Plaza in 2005 and hasn't been seen in a number of years. She has a prolapsed vaginal wall and stated she will bring pessary to next appointment. I printed the patient's notes and gave to Dr. Plaza to review before scheduling. documented in this encounter Plan of Treatment Upcoming Encounters Date Type Specialty Care Team Description 03/14/2022 Office Visit Dermatology [place] Edgar MD [facility] DR DIANA CANAS-DERMAT [place], [place] [address] (Wo rk) documented as of this encounter Visit Diagnoses Not on filedocumented in this encounter Care Teams Support Engineer Relationship Specialty Start Date End Date Leeanne Schultz MD PCP - General 10/28/13 [address] [place] [address] documented as of this encounter
--- OUTSIDE RECORDS SUMMARY | 2022-03-09 01:11 | XMS_ITS | Encounter Summary ---
:1945 Author Organization [facility] [address] Care Team Providers Name Role Phone Leeanne Schultz MD Primary Care Provider Encounter Details Date Type Department Care Team Description 10/04/2020 Clinical Support Dermatology at [place] (epidermal Road MD Natalia inclusion cyst) [address] [facility] [address] [facility] [phone] [place] [address] Social History Tobacco Use Types Packs/Day Years Used Date Former Smoker Smokeless Tobacco: Never Used Alcohol Use Standard Drinks/Week Comments Yes 7 (1 standard drink = 0.6 oz pure alcoho l) Sex Assigned at Date Recorded Female 10/02/2020 6:58 PM EDT documented as of this encounter Progress Notes Juan Alberto-Miguel Angel Farrell, PROFESSOR OF CHEMISTRY - 10/04/2020 7:30 AM EDT Pre Procedure [...] [facility] ER [address] DIANA CANAS-DERMAT [place], [place] [address] (Wo rk) documented as of this encounter Visit Diagnoses Diagnosis EIC (epidermal inclusion cyst) Sebaceous cyst documented in this encounter Care Teams Supervisor Ride Assembly Relationship Specialty Start Date End Date Leeanne Schultz MD PCP - General 10/28/13 [address] [place] [address] documented as of this encounter
--- OUTSIDE RECORDS SUMMARY | 2022-03-09 01:11 | XMS_ITS | Clinical Summary ---
:1945 Author Organization [facility] [place] [address] Care Team Providers Name Role Phone Leeanne [...] 4 hours as needed. citalopram (CeleXA) 40 Take 40 mg by 0 09/12/2010 Active mg Tablet mouth nightly. levothyroxine Take 75 mcg by 0 A ctive (SYNTHROID) 150 mcg mouth daily. tablet zolpidem (AMBIEN) 10 Take 5 mg by mouth 0 09/12/2010 Active mg Tablet nightly. clonazePAM (KLONOPIN) 0 08/07/2013 Active 1 mg tablet pimecrolimus (ELIDEL) Apply topically 2 30 g 1 10/05/2015 Active 1 % Cream times daily. As need for redness / rash on face Additional Information Patient not taking. Reported on 12/11/2021 scopolamine (TRANSDERM-SCOP) 1.5 Place 1 patch onto the 6 patch 0 12/19/2015 Active mg (1 mg over 3 days) patch 3 skin every 3 days. dayIndications: Counseling about travel, H/O motion sickness Additional Information Patient not taking. Reported on 12/11/2021 amoxicillin-clavulanate Take 1 tablet by 20 tablet 0 8 Active (AUGMENTIN) 875-125 mg Tablet mouth 2 times daily. tretinoin (RETIN-A) 0.05 % Cream Apply 1-2 nights 45 g 06/14/2020 Active per week, working up to nightly. metroNIDAZOLE (MetrogeL) 1 % Apply topically 60 g 3 09/12 Active GelIndications: Periorificial daily. dermatitis Active Problems Problem Noted Date Pelvic organ prolapse quantification stage 3 rectocele 11/27/2020 Abdominal pain 01/11/2018 Health care maintenance 12/19/2015 Melanoma 02/08/2015 Personal history of malignant melanoma of skin 011 Basal cell carcinoma Overview: on left mid back Encounters Date Type Specialty Care Team Description 12/11/2021 Office Visit Dermatology Fidel Miller MD Seborrheic keratoses; Minna Armendariz RN Perior ificial dermatitis from Last 3 Months Immunizations Name Administration [...] [facility] [address] [facility] [place], [place] [address] (Wo rk) Health Maintenance Due Date Last Done Comments Covid-19 Vaccine (#1) 03/27/1946 Hepatitis C Screening 1963 Colonoscopy 09/25/1991 Advance Directive 2001 Zoster vaccine (2 of 3) 06/16/2007 04/21/2007 Bone Density Scan 09/25/2011 Pneumoccocal Vaccine: 65+ (2 - 09/25/2013 09/25/2012, 01/11 PCV) Influenza (Flu) vaccine (1 of 1 - 01/04/2022 02/08/2015, , Influenza standard series) 01/05/2010, Additiona l history exists Tetanus vaccine 09/25/2022 09/25/2012, 01/03/2010, 11/20/1999 Tdap adult Completed 09/25/2012, 01/03/2010 Insurance Payer Benefit Plan / Subscriber ID Effective Phone Address T ype Group Dates MEDICARE MEDICARE PART A [id number] 2011-Prese [phone] [place] [address] AARP SUPPLEMENT AARP SUPPLEMENT [id number] 2012-Pres [id number] [place] [address] Advance Directives Latest Code Status on File Code Status Date Activated Date Inactivated Comments Full Code 01/11/2018 2:09 AM 01/13/2018 3:04 PM Does patient have capacity to make decision: Yes Care Teams Chief Inspector Relationship Specialty Start Date End Date Leeanne Schultz MD PCP - General 10/28/13 [address] [place], [place] [address]
--- OUTSIDE RECORDS SUMMARY | 2022-03-09 01:11 | XMS_ITS | Encounter Summary ---
:1945 Author Organization [facility] [place] [address] Care Team Providers Name Role Phone Leeanne Schultz MD Primary Care Provider Encounter Details Date Type Department Care Team Description 09/11[facility]21 [facility] Ne[facility] of uncertain behavior, right dixon; [place] PETER Neoplasm of uncertain behavior, left thi gh; [address] [facility] Periorificial dermatitis; [place], [place] DR RAUSCH (actinic keratosis); [address] [facility] Multiple benign melanocytic nevi of upper and lower extremities and trunk; [phone] RD-DERMATOLOGY Seborrheic keratoses; [place], [place] [address] Lentigines; [phone] History of anson noma; (Work) History of nonmelanoma skin cancer Social History Tobacco Use Types Packs/Day Years Used Date Former Smoker Smokeless Tobacco: Never Used Alcohol Use Standard Drinks/Week Comments Yes 7 (1 standard drink = 0.6 oz pure alcoho l) Sex Assigned at Date Recorded Female 10/02/2020 6:58 PM EDT documented as of this encounter Progress Notes Fidel Miller MD - 09/11/2021 10:00 AM EDT Images from the original note were not included. DEPARTMENT OF DERMATOLOGY Medical Dermatology Clinic Provider: Fidel Miller MD FAAD at Dermatology at [facility] Patient's preferred name Ivet PAST MEDICAL HISTORY (if blank, patient denies [...] mild to moderate Right buttock SCC Right lateral calf, SCCis s/p ED&C Apr 2018 BCC Left leg BCC, 10/1999 (outside path) Right shoulder BCC, 04/2000 (outside path) Left arm, BCC, 10/2000 (outside path) Left upper chest, BCC, 11/2001 (outside path) Left mid back, BCC s/p excision [place] [x] cryotherapy [] efudex [] PDT [] Other Relevant Medications [] Immunosuppression [] Transplant [] Oncogenic medication [] Nicotinamide 500mg po bid Other relevant history Periorificial Dermatitis - metrogel FAMILY HISTORY (if blank, patient denies history) Melanoma Brothers NMSC - Other relevant history Pancreatic cancer - mother SOCIAL HISTORY History of Present Illness: Leeanne Bush is 75 y.o. and here for the following: ??? Raised red spot on the right dixon x 4 weeks. symptoms include tenderness and itching. No burningor bleeding. Never been treated or biopsied. ??? Area of thickened skin on the left lower lip present for decades. The skin peels off periodically. No itching, burning or bleeding. Never been treated or biopsied. ??? History of periorificial dermatitis for 3 years, previously seen and treated in [place] and given prescription for metronidazole gel. Uses metronidazole gel during flares, roughly 5 times per year. Requesting refill today. ??? No other spots of concern. ??? No known recurrence of previous skin cancer sites. ??? Requesting skin cancer screening. Medications: Reviewed in eD-H Allergies: Reviewed in eD-H Skin Examination Standby: DULCE Cevallos Well developed, well-nourished in no apparent distress, alert and oriented to time, person, place and situation. Focused examination of the skin of the face, left thigh and right dixon significant for the following: Exam Findings/Assessment/Plan Neoplasm of Uncertain Behavior, Right Mid Medial Dixon 5 mm dull red hyperkeratotic papule on the right mid medial dixon. DDx: SCC v other Discussed differential diagnoses as above, and management options including the risks and benefits of observation, empiric treatment, or diagnostic biopsy and its risk for scar, pain, infection as wellas biopsy wound care instructions. Discussed that pathology results will be available in approximately 1 week; and patient to contact clinic if result is not available in 2 weeks. Answered all questions. Patient elects biopsy. Procedure / Biopsy Discussed with patient biopsy - including but not limited to recurrence, cosmesis (scar, dyspigmentation, scar spread,keloid), pain, keloid/hypertrophic scar, bleeding, infection for biopsy. Answered all questions. Patient verbally understands, verbally consents to and elects biopsy. Images Photo(s) taken by Natalia Miller MD. with patient's verbal permission for use for clinical and educationpurposes. Figure A Procedure Time Out Performed: Name, , and site(s) confirmed with patient [x] Yes Blood Thinner? [x] Denies [] Yes Pacemaker or defribrillator? [x] Denies [] Yes Joint Replacement in the last 24 months? [x] Denies [] (Right knee, 4+ years ago) Allergy to lidocaine or epinephrine? [x] Denies [] Yes Permission to convey results: [x] Call (M) and permission to leave voicemail Procedure (s) A. [x] Shave Location (s) A. Right mid medial dixon Pre-Operative Diagnosis A. SCC v other Anesthesia: 1% lidocaine [x] NO epi [] 1:100,000 epi Sterile Prep Alcohol Lesion biopsied with shave technique using raul blade. Hemostasis achieved with [x] Drysol [] Monsels [] Elecrocautery. <1ml blood loss. No complications. Specimen(s): Placed in formalin and sent to Pathology for histologic examination. Post-op care: Vaseline, [x] Bandaid [] Pressure Dressing Post-operative pain: 0/10 ?? Wound care instructions provided including cleaning Vaseline or topical antibiotic once or twice a day, allowing soapy water to wash over wound daily, and an optional Band-Aid or bandage. Recommend sun protection after the wound is healed to mitigate long-term redness. Neoplasm of Uncertain Behavior, Left Thigh 4 mm hypopigmented slightly waxy papule on the left distal thigh. DDx: Favor SK but possible early dermatofibroma Discussed differential diagnoses as above, and management options including the risks and benefits of observation, empiric treatment with cryotherapy, or diagnostic biopsy and major risks of each including scar, pain, infection. Discussed that if malignancy, may progress. Answered all questions. Joint decision not to treat at this time given no symptoms - ie tenderness. ??? Return to clinic prn for for changes in color, enlarges, or should bleeding or other symptoms occur. Patient agrees to plan. Actinic Keratosis Woodson, hyperkeratotic slightly irregular papules on the left lower vermilion boarder x1 [Total AK: 1] Counseled: AKs, risk for progression to SCCs, and treatment options, including observation, cryotherapy, topicals, and PDT and major risks for each treatment, including but not limited to pain, scarring, retreatment/recurrence. Answered all questions. Handout given. Patient elects cryotherapy ??? Total 1 treated with cryotherapy, 1 cycle at 3 seconds, after verbally discussing the disease and treatment options, cryotherapy method, expected results/course and potential adverse effects, including crusting, persistent erythema, scar, blister, pain, dyspigmentation, and recurrence. Patient verbally agreed. Patient tolerated well with no complications. Wound care instructions provided. If no resolution in 1 month or if scaling recurs after initial resolution, may contact clinic for re-evaluation and management. Periorificial Dermatitis No dermatitis on examination of the face. DDx: Periorificial dermatitis over hormonal acne. Recommend trial of doxycycline. Discontinue topical steroid. Counseled: periorificial dermatitis, a/w viariant of rosacea, [...] Answered all questions. Handout given. Patient elects continue metronidazole gel. ??? Continue Rx metronidazole 1% gel apply to the affected areas on the face twice daily as needed for flares ??? If no improvement during flares, patient understands to call for Rx doxycycline Family History of Skin Cancer [x] Melanoma - confers higher personal skin cancer risk [] NMSC [] Unknown Type History of Skin Cancer, including Melanomas No clinical evidence of recurrence in scars, as listed above ??? Recommend regular evaluation of scars ??? Return to clinic if suspect recurrence. Patient agrees to plan. Patient Counseled [Skin Cancer] [x] History of skin cancer [] History of immunosuppression [] History of extensive sun exposure [x] Family history of skin cancer Counseled: recommend sun protection, regular self skin exams, provider skin exams every 6 months, and the ABCDEs of melanoma/NMSC. Answered all questions. Handouts on how to do a self-exam, skin cancers and sun protection/recommended OTC sunscreens given to the patient. Joint decision for skin cancer screening in 6 months. ?? Regular full body self examinations and return to clinic for new suspicious lesions or if changes/symptoms in existing lesions develop. Follow-up: skin cancer screening in Mar 2022. Return sooner as needed for suspicious lesion, new or worsening dermatitis. [x] Recall placed [] Forwarded to motion picture film examiner [] Patient scheduled before exiting Scribe attestation: Jacklyn Ewing, [facility] and Janett Perez [facility] has performed the documentationfor this encounter in the presence of and acting as a scribe for MD PARKER Garcia. I performed the above scribed service and agree with the accuracy of the documentation in this encounter. Reviewed and signed by: Fidel Miller MD FAAD Dermatology [facility] Fidel Miller MD - 09/11/2021 10:00 AM EDT [id number] Right mid medial dixon, skin shave biopsy: - ??Invasive squamous cell carcinoma, well differentiated, ?? present at the deep specimen edge WELL-DIFFERENTIATED SCC, RIGHT MID MEDIAL DIXON Recommend C&E or excision with 4mm margins and linear repair Call (M) and permission to leave voicemail documented in this encounter Plan of Treatment Upcoming Encounters Date Type Specialty Care Team Description 03/14/2022 Office Visit Dermatology [place] Edgar MD [facility] DR DIANA CANAS-DERMAT [place], [place] [address] (Wo rk) documented as of [...] in this encounter Results Surgical Pathology Report (09/11/2021 12:23 PM EDT) Component Value Ref Test Analysis Performed At [facility] Range Method Time Signature Surgical [id number] ? Location: [facility] Report The signing pathologist has (i) examined the relevant preparation(s) for the [facility] specimen(s) and (ii) rendered or confirmed the diagnosis(es) . HOSPITAL LAB[facility]ORY . ?Surgic al Pathology DIAGNOSIS Right mid medial dixon, skin shave biopsy: - ??Invasive squamous cell c arcinoma, well differentiated, ?? present at the deep specimen edge Electronically signed by: ?Eron Vargas MD Verified: ??09/13/2021 11:04 ??Dermatopathologist Performed at: ??-[facility] [place], [place], [place] SPECIMEN(S) SUBMITTED A - right mid medial dixon, skin shave biopsy (1) CLINICAL INFORMATION 5 mm dull red hyperkeratotic papule on the right mid medial dixon. DX: SCC vs other SPECIMEN PROCESSING A - Labeled/Fixative: Patient demographics, formalin. Quantity/Size: ??Single, 1.0 x 1.0 x 0.2 cm. Tissue Description: Shave of callahan skin with a central 0.5 x 0.4 cm raised, molian-white scaly lesion. Sections/Processing: Inked, quadrisected and entirely submitted in 2 cassettes as follows: ?A1: ??Tips ?A2: ??Body ??mnd Specimen (Source) Anatomical Collection Method Collection Time Re ceived Time Location / / Volume Laterality 09/11/2021 12:23 PM EDT Fidel Miller MD PATHOLOGY/CYTOLOGY ORDERABLE S Performing Organization Address City/[facility]/[place] [address] Specimen to Pathology (09/11/2021 12:23 PM EDT) Specimen Anatomical Collection Method Collection Time Receive d Time (Source) Location / / Volume Laterality AP Specimen 09/11/2021 12:23 09/11/2021 PM EDT 12:23 PM EDT Narrative [facility] - 09/11/2021 12:23 PM EDT Specimen requisition ordered. ??Separate Pathology report to follow Fidel Miller MD PATHOLOGY/CYTOLOGY ORDERABLE S Performing Organization Address City/State/[place] [address] documented in this encounter Visit Diagnoses Diagnosis Neoplasm of uncertain behavior, right sh in; Neoplasm of uncertain behavior, left thigh Neoplasm of uncertain behavior, site uns pecified Periorificial dermatitis [place] (actinic keratosis) Actinic keratosis Multiple benign melanocytic nevi of uppe r and lower extremities and trunk Seborrheic keratoses Lentigines Other dyschromia History of melanoma Personal history of malignant melanoma o f skin History of nonmelanoma skin cancer Personal history of other malignant neop lasm of skin documented in this encounter Care Teams On Call Relationship Specialty Start Date End Date Leeanne Schultz MD PCP - General 10/28/13 [address] [place], [place] [address] documented as of this encounter
--- OUTSIDE RECORDS SUMMARY | 2022-03-09 01:11 | XMS_ITS | Encounter Summary ---
:1945 Author Organization [facility] [place] [address] Care Team Providers Name Role Phone Leeanne Schultz MD Primary Care Provider Reason for Visit Reason Comments Skin Lesion Encounter Details Date Type Department Care Team Description 10/18/2021 Office Visit Dermatology at [facility] urgical wound [place] Ryan MD present [address] [place] [address] [address] [phone] [facility]-DERMATOLOGY [place], [place] [address] Social History Tobacco Use Types Packs/Day Years Used Date Former Smoker Smokeless Tobacco: Never Used Alcohol Use Standard Drinks/Week Comments Yes 7 (1 standard drink = 0.6 oz pure alcoho l) Sex Assigned at Date Recorded Female 10/02/2020 6:58 PM EDT documented as of this encounter Progress Notes Mloly Tucker MD - 10/18/2021 1:40 PM EDT [...] Exposure & Protection She grew up in [place] with [...] FSE with Dr. Edgar []Note routed to racing secretary []Recall placed in scheduling system []Appointment scheduled at checkout Scribe attestation: Janett Hoffman CMA has performed the documentation for this encounter in the presence of and acting as a scribe for Molly Tucker MD. I performed the above scribed service and agree with the accuracy of the documentation in this encounter. Reviewed and signed by: Molly Tucker MD Dermatology [facility] Staff deputy chief sheriff: Mone Yen MD Dermatology [facility] Mone Yen MD - 10/18/2021 1:40 PM EDT I was the supervising physician working with Dermatology Resident in the dermatology clinic during this patient visit. The level of Resident supervision for this patient visit was indirect supervision with direct supervision immediately available. (definition: [facility] GME Policy Statement on Graduate Medi [facility] Education, Supervision of Graduate Medical Trainees) I was immediately available to the Dermatology Resident for questions and discussion regarding this visit. I have reviewed the encounter note details. MONE YEN MD Staff Physician documented in this encounter Plan of Treatment Upcoming Encounters Date Type Specialty Care Team Description 03/14/2022 Office Visit Dermatology [place] Edgar MD [facility] DR DIANA CANAS-DERMAT [place], [place] [address] (Wo rk) documented as of this encounter Visit Diagnoses Diagnosis Surgical wound present documented in this encounter Care Teams Paper Stacker Relationship Specialty Start Date End Date Leeanne Schultz MD PCP - General 10/28/13 [address] [place] [address] documented as of this encounter
--- OUTSIDE RECORDS SUMMARY | 2022-03-09 01:11 | XMS_ITS | Encounter Summary ---
:1945 Author Organization [facility] [place] [address] Care Team Providers Name Role Phone Leeanne Schultz MD Primary Care Provider Encounter Details Date Type Department Care Team Description 03/14/2021 [place] [facility] [place] Pelvic organ prolapse [facility] MD Felisha quantification stage [address] [facility] [place] [address] UROLOGY DEPT. [phone] [place], [place] [address] Social History Tobacco Use Types [...] Edgar MD [facility] [address] DIANA CANAS-DERMAT [place], [place] [address] (Wo rk) documented as of this encounter Visit Diagnoses Diagnosis Pelvic organ prolapse quantification sta ge 3 rectocele documented in this encounter Care Teams Medical Assistant Prn Relationship Specialty Start Date End Date Leeanne Schultz MD PCP - General 10/28/13 [address] [place] [address] documented as of this encounter
--- OUTSIDE RECORDS SUMMARY | 2022-03-09 01:11 | XMS_ITS | Encounter Summary ---
:1945 Author Organization [facility] [place] [address] Care Team Providers Name Role Phone Leeanne Schultz MD Primary Care Provider Encounter Details Date Type Department Care Team Description 12/16/2020 Anesthesia [place] [facility] [place] [address] ANESTHESIOLOGY [place], [place] [address] Anesthesia Record Procedure Summary Procedure [...] arm), DELROY Roach Michael W, RN right; [id number] catheter system; Anatomical Landmarks; 22 gauge; Turner [...] Procedure Summary Date: 12/16/20 Room / Location: [facility] ENDO 3 / [facility] Anesthesia Start: 1408 Anesthesia Stop: 1435 Procedures: UPPER EUS- ENDOSCOPIC ULTRASOUND (N/A Trunk) EGD, UPPER GI ENDOSCOPY (N/A Trunk) Diagnosis: (cervical subepithelial nodule vs extrinsic compression) Surgeons: Driss Gilbert MD Responsible Provider: Jonathan Quan MD Anesthesia Type: MAC ASA Status: 2 All Anesthesia Providers: Anesthesiologist: Jonathan Quan MD ROTARY OPERATOR: Daryl Gilmore CRNA Vitals Value Taken Time [...] Visit Dermatology [place] Edgar MD [facility] ER DR DIANA CANAS-DERMAT [place] [address] (Wo rk) documented as of this encounter [...] Routine documented in this encounter Care Teams Fire Sprinkler Installer Relationship Specialty Start Date End Date Leeanne Schultz MD PCP - General 10/28/13 [address] [place] [address] documented as of this encounter
--- OUTSIDE RECORDS SUMMARY | 2022-03-09 01:11 | XMS_ITS | Encounter Summary ---
:1945 Author Organization [facility] [place] [address] Care Team Providers Name Role Phone Leeanne Schultz MD Primary Care Provider Reason for Visit Reason Onset Date Comments Results 04/24/2021 FRANK mutation Encounter Details Date Type Department Care Team Description 04/24/2021 Telephone Hematology and Elisa Sexton L GC Results (FRANK mutation) Oncology at [facility] DR Baldwin HEMATOLOGY/[place] [address] DEPT. [phone] [place], [place] [address] (Wo rk) Social History Tobacco [...] is provided below. Please be advised that [place] law requires that all health care workers respect the confidentiality of thisinformation and not pass it along to other health care providers, insurance companies, or individuals without the written permission of the patient. The Familial Cancer Program welcomes any questions about these matters. Our phone number is: [phone]. 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 Following are the results of this test. 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 No other mutation was detected. The following 84 genes were evaluated for sequence changes and exonic deletions/duplications: AIP, ALK, APC, FRANK, AXIN2, BAP1, BARD1, BLM, BMPR1A, BRCA1, BRCA2, BRIP1, CASR, CDC73, CDH1, CDK4, CDKN1B, CDKN1C, CDKN2A (p14ARF), CDKN2A (r64IEH5Y), CEBPA, CHEK2, CTNNA1, DICER1, DIS3L2, EGFR, EPCAM(Deletion/duplication testing only), FH, FLCN, GATA2, GPC3, GREM1 (Promoter region deletion/duplication testing only), HOXB13, HRAS, KIT, MAX, MEN1, MET, MITF, (c.952G>A,P.Onr015Xuy variant only), MLH1, MSH2, MSH3, MSH6, MUTYH, NBN, NF1, NF2, NTHL1, PALB2, PDGFRA, PHOX2B, PMS2, POLD1, POLE, POT1, DMTTV0V, PTCH1, PTEN, RAD50, RAD51C, RAD51D, RB1, RECQL4, RET, RUNX1, SDHA, SDHAF2, SDHB, SDHC, SDHD, SMAD4, SMARCA4, SMARCB1, SMARCE1, STK11, SUFU, TERC, TERT, WNGI675, TP53, TSC1, TSC2, VHL, WRN, and WT1. A variant of uncertain significance (VUS) in the MUTYH gene, specifically c.326G>A (p.Ray977Kea),was detected. Interpretation: FRANK: The most significant consequences of carrying one non-working copy of the FRANK gene are increased risks for breast, ovarian and pancreatic cancer. For a female who has not had cancer, lifetime risk of breast cancer with the specific mutation detected in Ievt is approximately 69% compared to a ~12% [...] testing. Our scheduling secretarycan be reached at [phone]. Family members can also go to the [...] Difficulty with coordinating movements (ataxia) begin in culturist, usually before age 5. This condition is [...] the gene with no increased cancer risks. [employer] is continually collecting andanalyzing their data, in [...] and mailing address stay updated in the [facility] system, in order for us to reach [...] screening for this. When she returns from [place] Ivet could meet with Dr. Jacqueline Luo, rink rat at [facility], to learn more about the options for screening and the potential benefits and limitations. Colon cancer screening ?? Periodic screening as recommended by Ivet's rink rat or primary care provider. Skin cancer screening ?? Skin cancer screening and sun protection are important for everyone, regardless of genetic predisposition. ?? Dermatologic exams as recommended by Ivet's belt tender. Support Ivet may find the online support organization called [employer]: Facing Our Risk of Cancer Empowered a helpful resource. This can be found at [employer] ClinicalTrials.gov website will have the most up-to-date [...] a consultation with a psychologist, social media content specialist, or psychiatrist may be helpful in dealing with feelings that may arise from genetic testing. If Ivet would like a referral, we can help to try to recommend a therapist who is familiar with issues surrounding genetic conditions. Follow-up We discussed the option of a follow-up appointment with the Familial Cancer Program, when Ivet returns from [place], for further discussion of this result. Follow-up can be done either in person or via telehealth. Ivet will contact us at [phone] if she decides she would like to schedule an appointment. As discussed above, Ivet may wish to meet with Dr. Jacqueline Luo for discussion about potentialscreening for pancreatic cancer. Her office can be reached at [phone]. documented in this encounter Plan of Treatment Upcoming Encounters Date Type Specialty Care Team Description 03/14/2022 Office Visit Dermatology Berlin Edgar MD [facility] [address] DIANA CANAS-DERMAT [place], [place] [address] (Wo rk) documented as of this encounter Visit Diagnoses Not on filedocumented in this encounter Care Teams Fitter Welder Relationship Specialty Start Date End Date Leeanne Schultz MD PCP - General 10/28/13 [address] [place] [address] documented as of this encounter
--- OUTSIDE RECORDS SUMMARY | 2022-03-09 01:11 | XMS_ITS | Encounter Summary ---
:1945 [place] [address] Care Team Providers Name Role Phone Leeanne Schultz MD Primary Care Provider Encounter Details Date Type Department Care Team Description 09/25/2021 Office Visit Dermatology at [facility] Berlin Edgar S CC (squamous cell carcinoma), leg, right; Road SK (seborrheic keratosis); [address] [facility] Multiple benign nevi; [place] [address] [address] Sidhu; [phone] [facility] History of anson noma; -DERMATOLOGY History of nonmelanoma skin cancer; [place], [place] [address] History of dysplastic nevus Social History [...] bed use y She grew up in [place] with a [...] for full skin exam []Note routed to departmental secretary []Recall placed in scheduling system [x]Appointment scheduled at checkout Scribe attestation: Miguel Angel Evans CMA has performed the documentation for this encounter in the presence of and acting as a scribe for Berlin Edgar MD. I performed the above scribed service and agree with the accuracy of the documentation in this encounter. Reviewed and signed by: Berlin Edgar MD Dermatology [facility] documented in this encounter Plan of Treatment Upcoming Encounters Date Type Specialty Care Team Description 03/14/2022 Office Visit Dermatology [place] Edgar MD [facility] ER [address] DIANA CANAS-DERMAT [place], [place] [address] (Wo rk) documented as of [...] tissue documented in this encounter Care Teams Agent Producer Relationship Specialty Start Date End Date Leeanne Schultz MD PCP - General 10/28/13 [address] [place] [address] documented as of this encounter
--- OUTSIDE RECORDS SUMMARY | 2022-03-09 01:11 | XMS_ITS | Encounter Summary ---
:1945 Author Organization [facility] [place] [address] Care Team Providers Name Role Phone Leeanne Schultz MD Primary Care Provider Encounter Details Date Type Department Care Team Description 12/16/2020 Surgery Gastroenterology at [facility] Driss Gilbert, UPPER EUS- ENDOSCOPIC [facility] Kwasi fernández [place] [address] [facility] [phone] [place], [place] [address] Social History Tobacco Use Types [...] the day after the procedure, use an gflc-pyv-ozbzpae spray to numb yourthroat. Sucking on throat [...] occurs, please contact your Doctor. Please call [phone] before 8pm Mon-Fri with problems, questions or concerns. If you call after 8pm or on weekends, call the Hospital at [phone] and ask to speak to the Lathe Mechanic vocational ed instructor and the gas compressor operator will contact that person for you. When should you call for help? Call [phone] anytime you think you may need emergency [...] any problems. Where can you learn more? [facility] View your After Visit Summary and more online at [email or web address] If you would like to provide feedback about your hospital experience, please call the Office of Patient and Family Relations at . If you have received this After Visit Summary in error, please immediately return it in person to the department, or notify the [facility] Privacy Office by calling toll free at between the hours of 8AM and 5PM to arrange for our retrieval of the documents at no cost to you. Content Version: 12.2 ?? 3261-4135 [employer]. Care instructions adapted under license by [facility]. If you have questions about a medical condition or this instruction, always ask your healthcare professional. [employer] disclaims any warranty or liability for your [...] the day after the procedure, use an sdor-gll-ylzaqxo spray to numb yourthroat. Sucking on throat [...] occurs, please contact your Doctor. Please call [phone] before 8pm Mon-Fri with problems, questions or concerns. If you call after 8pm or on weekends, call the Hospital at [phone] and ask to speak to the Lathe Mechanic vocational ed instructor and the gas compressor operator will contact that person for you. When should you call for help? Call [phone] anytime you think you may need emergency [...] any problems. Where can you learn more? [facility] View your After Visit Summary and more online at [email or web address] If you would like to provide [...] cost to you. Content Version: 12.2 ?? [phone] [employer]. Care instructions adapted under license by [facility]. If you have questions about a medical condition or this instruction, always ask your healthcare professional. [employer] disclaims any warranty or liability for your [...] Operative Note Patient Name: Leeanne Bush : [id number] MR#: [id number] Case Date: 12/16/2020 Surgeon: Surgeon(s) and Role: * Driss Gilbert MD - Primary * Porfirio Fountain MD - Fellow Procedure(s): UPPER EUS- ENDOSCOPIC ULTRASOUND EGD, UPPER GI ENDOSCOPY Please see Provation report for details. documented in this encounter Plan of Treatment Upcoming Encounters Date Type Specialty Care Team Description 03/14/2022 Office Visit Dermatology [place] Edgar MD [facility] [address] DIANA CANAS-DERMAT [place], [place] [address] (Wo rk) documented as of [...] Component Value Ref Test Analysis Performed At [facility] gist Range Method Time Signature UPPER [facility] PROVATION ENDOSCOPIC Endoscopy ULTRASOUND _ Procedure Date: 12/16/2020 1:53 PM ? Patient Name: Leeanne Bush ? N: [id number] ? Date of : 1945 ? Age: 75 ? Order #: [id number] ? Instrument Name: [id number] ? Procedure: ? Upper EUS Indications: ? [...] Procedure Code(s): ?? --- Professional --- ? 53532, Esophagogastroduodenos copy, ? flexible, transoral; with end oscopic ? ultrasound examination limite d to the ? esophagus, stomach or duodenu m, and ? adjacent structures Diagnosis Code(s): ?? --- Professional --- ? 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 --- Technical --- ? 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 All rights reserved. The codes documented in this report are preliminary and upon reconnaissance man review may be revised to meet current [...] Procedure) documented in this encounter Care Teams Blow Mold Machine Operator Relationship Specialty Start Date End Date Leeanne Schultz MD PCP - General 10/28/13 [address] [place] [address] documented as of this encounter
--- OUTSIDE RECORDS SUMMARY | 2022-03-09 01:11 | XMS_ITS | Encounter Summary ---
:1945 Author Organization [facility] [place] [address] Care Team Providers Name Role Phone Leeanne Schultz MD Primary Care Provider Encounter Details Date Type Department Care Team Description 10/04/2020 [facility] [place] (epidermal Road inclusion cyst) [address] [facility] [address] [facility] [phone] RD-DERMATOLOGY [place] [address] Social History Tobacco Use Types Packs/Day Years [...] at . You may also contact your Securities And Real Estate Director: Miguel Angel Evans CMA during the day at . In the case of urgency after 5PM and on weekends, please call the hospital number and ask for the Medical Administrative Assistant manager environmental services. Your Surgeon was: Berlin Edgar MD Medical [...] signed by Berlin Edgar MD FAAD Staff Medical Administrative Assistant Department of Dermatology [facility] Berlin Edgar MD - 10/04/2020 8:00 AM EDT Excision results consistent with an Epidermal Inclusion Cyst. - A benign cyst of the skin w/o concerning findings - No further intervention required - Continue wound care per handout provided Seen and reviewed by: Berlin Edgar MD Staff Medical Administrative Assistant Department of Dermatology documented in this encounter [...] Dermatology Berlin Edgar MD [facility] ER DR DIANA CANAS-DERMAT [place] [address] (Wo rk) documented as of this encounter [...] Component Value Ref Test Analysis Performed At [facility] Time Signature Surgical [id number] ? Location: [facility] Report The signing pathologist has (i) examined the relevant preparation(s) for the MEMORIAL specimen(s) and (ii) rendered or confirmed the diagnosis(es) . HOSPITAL LABORATORY . ?Surgic al Pathology DIAGNOSIS Upper back, skin ??excision: - Epidermal inclusion cyst Electronically signed by: ?Sacha Nunez MD Verified: ??10/06/2020 14:22 ??Dermatopathologist Performed at: ??-[facility] Dept. of Pathology, [place], [place] SPECIMEN(S) SUBMITTED A - upper back, [...] material. Sections/Processing: Inked, serially sectioned an d sales representative gas service sections submitted in 1 cassette labeled A1. ??sns Specimen (Source) Anatomical Collection Method Collection Time Re ceived Time Location / / Volume Laterality 10/04/2020 8:52 AM EDT Berlin Edgar MD PATHOLOGY/CYTOLOGY ORDERABLE S Performing Organization Address City/[facility]/[place] [address] Specimen to Pathology (10/04/2020 8:52 AM EDT) Specimen Anatomical Collection Method Collection Time Receive d Time (Source) Location / / Volume Laterality AP Specimen 10/04/2020 8:52 AM 8:52 EDT AM EDT Narrative [facility] - 10/04/2020 8:52 AM EDT Specimen requisition ordered. ??Separate Pathology report to follow Berlin Edgar MD PATHOLOGY/CYTOLOGY ORDERABLE S Performing Organization Address City/[facility]/[place] [address] documented in this encounter Visit Diagnoses Diagnosis EIC (epidermal inclusion cyst) Sebaceous cyst documented in this encounter Care Teams Toggle Press Folder And Feeder Relationship Specialty Start Date End Date Leeanne Schultz MD PCP - General 10/28/13 [address] [place] [address] documented as of this encounter
--- OUTSIDE RECORDS SUMMARY | 2022-03-09 01:11 | XMS_ITS | Encounter Summary ---
:1945 Author Organization [facility] [place] [address] Care Team Providers Name Role Phone Leeanne Schultz MD Primary Care Provider Encounter Details Date Type Department Care Team Description 12/06/2020 Telephone Gastroenterology at [facility] [place] [place] [address] Social History Tobacco Use Types Packs/Day Years Used Date Former Smoker Smokeless Tobacco: Never Used Alcohol Use Standard Drinks/Week Comments Yes 7 (1 standard drink = 0.6 oz pure alcoho l) Sex Assigned at Date Recorded Female 10/02/2020 6:58 PM EDT documented as of this encounter Miscellaneous Notes Telephone Encounter - Chanda Hayes - 12/06/2020 10:58 AM EDT Leeanne Bush [id number] Diagnosis/Indication: esophagus 1. Have you ever had [...] Office Visit Dermatology Berlin Edgar MD [facility] [address] DIANA CANAS-DERMAT [place], [place] [address] (Wo rk) documented as of this encounter Visit Diagnoses Not on filedocumented in this encounter Care Teams Soaker Soda Worker Relationship Specialty Start Date End Date Leeanne Schultz MD PCP - General 10/28/13 [address] [place], [place] [address] documented as of this encounter
--- OUTSIDE RECORDS SUMMARY | 2022-03-09 01:11 | XMS_ITS | Encounter Summary ---
:1945 Author Organization [facility] [place] [address] Care Team Providers Name Role Phone Leeanne Schultz MD Primary Care Provider Encounter Details Date Type Department Care Team Description 03/16/2021 Notes Only Hematology and Oncology at Bryan Luna MD [facility] Kwasi feránndez HEMATOLOGY/[place] [address] [place] [address] [phone] (Wo rk) Social History Tobacco Use Types [...] 03/14/2022 Office Visit Dermatology Berlin Edgar MD [facility] [address]-DERMAT [place], [place] [address] (Wo rk) documented as of this encounter Visit Diagnoses Not on filedocumented in this encounter Care Teams Oak Tanner Relationship Specialty Start Date End Date Leeanne Schultz MD PCP - General 10/28/13 [address] [place] [address] documented as of this encounter
--- OUTSIDE RECORDS SUMMARY | 2022-03-09 01:11 | XMS_ITS | Encounter Summary ---
:1945 [place] [address] Care Team Providers Name Role Phone Leeanne Schultz MD Primary Care Provider Encounter Details Date Type Department Care Team Description 03/21/2021 Office Visit Dermatology at [facility] Berlin Edgar A K (actinic keratosis); [place] PETER Neoplasm of uncertain behavior of skin; [address] [facility] Skin cancer screening; [place] [address] Multiple benign melanocytic nevi of uppe r and lower extremities and trunk; [phone] [facility] Seborrheic shavonne toses; RD-DERMATOLOGY Lentigines; [place], [place] [address] History of melanoma Social [...] in [place] ? Right lateral thigh. 07/17/2014,??MIS, left upper [...] bed use y She grew up in [place] with a [...] N/A RTC: Pending Pathology []Note routed to executive secretary []Recall placed in scheduling system []Appointment scheduled at checkout Scribe attestation: DULCE Nick has performed the documentation for this encounter in the presence of and acting as a scribe for Berlin Edgar MD. I performed the above scribed service and agree with the accuracy of the documentation in this encounter. Reviewed and signed by: Berlin Edgar MD Dermatology [facility] Berlin Edgar MD - 03/21/2021 10:00 AM EST Biopsy consistent with Pigmented Actinic Keratosis(AK) -a precancerous lesion that was removed with shave removal at recent visit - no further treatment required at present Seen and reviewed by: Berlin Edgar MD Staff Drain Cleaner Plumber Department of Dermatology documented in this encounter Miscellaneous Notes Addendum Note - Renetta Whyte CCMA - 03/21/2021 10:00 AM EST Addended by: RENETTA WHYTE on: 03/21/2021 03:55 PM Modules accepted: Orders documented in this encounter Plan of Treatment Upcoming Encounters Date Type Specialty Care Team Description 03/14/2022 Office Visit Dermatology Berlin Edgar MD [facility] [address] DIANA CANAS-DERMAT [place] [address] (Wo rk) documented as of this encounter [...] 3:55 PM 3:55 EST PM EST Narrative [facility] - 03/21/2021 3:55 PM EST Specimen requisition ordered. ??Separate Pathology report to follow Berlin Edgar MD PATHOLOGY/CYTOLOGY ORDERABLE S Performing Organization Address City/State/[place] [address] Surgical Pathology Report (03/21/2021 3:54 PM EST) Component Value Ref Test Analysis Performed At [facility] Range Method Time Signature Surgical [id number] ? Location: [facility] Report The signing pathologist has (i) examined the relevant preparation(s) for the MEMORIAL specimen(s) and (ii) rendered or confirmed the diagnosis(es) . HOSPITAL LABORATORY . ?Surgic al Pathology DIAGNOSIS Right eyebrow, skin shave removal: - Pigmented ??actinic keratosis Electronically signed by: ?Herb PETER, PhD, Samir Verified: ??03/29/2021 11:15 ??Dermatopathologist Performed at: ??-[facility] Dept. of Pathology, [place], [place] SPECIMEN(S) SUBMITTED A - Right eyebrow, skin shave removal (1) CLINICAL INFORMATION 4 mm light brown to davidson asy mmetric macule with questions signs of regression on the right eyebrow; DDX: Lichenoid keratosis R/O atypia SPECIMEN PROCESSING A - Labeled/Fixative: R eyebrow, formalin. Quantity/Size: ??Single, 0.5 x 0.5 x 0.1 cm. Tissue Description: Shave of oyq-xnrom-fmqm, mottled skin. Sections/Processing: Inked, bisected and entirely submitted in 1 cassette labeled A1. ??noe Specimen (Source) Anatomical Collection Method Collection Time Re ceived Time Location / / Volume Laterality 03/21/2021 3:54 PM EST Berlin Edgar MD PATHOLOGY/CYTOLOGY ORDERABLE S Performing Organization Address City/State/[place] [address] documented in this encounter [...] skin documented in this encounter Care Teams Building Code Inspector Relationship Specialty Start Date End Date Leeanne Schultz MD PCP - General 10/28/13 [address] [place] [address] documented as of this encounter
--- OUTSIDE RECORDS SUMMARY | 2022-03-09 01:12 | XMS_ITS | Encounter Summary ---
:1945 Author Organization [facility] [place] [address] Care Team Providers Name Role Phone Leeanne Schultz MD Primary Care Provider Reason for Visit Reason Comments Follow-up Encounter Details Date Type Department Care Team Description 10/05/2015 [facility] [place] PETER Seborrheic dermatitis [address] [place] [address] [facility]-DERMATOLOGY [place], [place] [address] Social History Tobacco Use Types [...] back. ? August 2007, MIS treated in [place] ? Right lateral [...] follow up. [place]ologist[place] Dr. Allen, prescribed Minocylcine 50 [...] of this 15 minute appointment were spent ifjo-bo-dezv in counseling with this patient. Wediscussed pathophysiology, [...] encounter. Ni Zamudio MD Section of Dermatology [facility] documented in this encounter Plan of Treatment Upcoming Encounters Date Type Specialty Care Team Description 03/14/2022 Office Visit Dermatology Berlin Edgar MD [facility] DR DIANA CANAS-DERMAT [place], [place] [address] (Wo rk) documented as of this encounter Visit Diagnoses Diagnosis POD (perioral dermatitis) Rosacea Seborrheic dermatitis Seborrheic dermatitis, unspecified documented in this encounter Care Teams Application Development Consultant Relationship Specialty Start Date End Date Leeanne Schultz MD PCP - General 10/28/13 [address] [place] [address] (work) documented as of this encounter
--- OUTSIDE RECORDS SUMMARY | 2022-03-09 01:12 | XMS_ITS | Encounter Summary ---
:1945 Author Organization [facility] [place] [address] Care Team Providers Name Role Phone Leeanne Schultz MD Primary Care Provider Encounter Details Date Type Department Care Team Description 10/03/2018 Telephone Dermatology at [facility] Cm Kaminski III, [address] [place] [address] [facility] [phone] DIANA MEDINA-DERMAT [place], [place] [address] (Wo rk) Social History Tobacco [...] cancelled. Cm Kaminski MD Section of Dermatology [facility] documented in this encounter Plan of Treatment Upcoming Encounters Date Type Specialty Care Team Description 03/14/2022 Office Visit Dermatology [place] Edgar MD ONE [facility] ER DR DIANA MEDINA-DERMAT [place], [place] [address] (Wo rk) documented as of this encounter Visit Diagnoses Not on filedocumented in this encounter Care Teams Insurance Legal Assistant Relationship Specialty Start Date End Date Leeanne Schultz MD PCP - General 10/28/13 [address] [place] [address] documented as of this encounter
--- OUTSIDE RECORDS SUMMARY | 2022-03-09 01:12 | XMS_ITS | Encounter Summary ---
:1945 Author Organization [facility] [place] [address] Care Team Providers Name Role Phone Leeanne Schultz MD Primary Care Provider Encounter Details Date Type Department Care Team Description 11/13/2019 Telephone Dermatology at [facility] Cm Corbett III, [address] [place] [address] [facility] [phone] DIANA MEDINA-DERMAT [place] [phone] (Wo rk) Social History Tobacco Use Types [...] 03/14/2022 Office Visit Dermatology [place] Edgar MD [facility] DR DIANA MEDINA-DERMAT [place], [place] [address] (Wo rk) documented as of this encounter Visit Diagnoses Not on filedocumented in this encounter Care Teams Corporate Coordinator Relationship Specialty Start Date End Date Leeanne Schultz MD PCP - General 10/28/13 [address] [place] [address] documented as of this encounter
--- OUTSIDE RECORDS SUMMARY | 2022-03-09 01:12 | XMS_ITS | Encounter Summary ---
:1945 Author Organization [place] [address] Care Team Providers Name Role Phone Leeanne Schultz MD Primary Care Provider Encounter Details Date Type Department Care Team Description 09/17/2016 [place] [address] Social History Tobacco Use Types Packs/Day [...] Visit Dermatology [place] Edgar MD [facility] ER DR DIANA CANAS-DERMAT [place] [address] (Wo rk) documented as of this encounter Procedures Procedure Name Priority Date/Time Associated Diagnosis Comme [facility] SURGICAL PATHOLOGY Routine 09/17/2016 5:30 PM Res ults for this REPORT EDT procedure are i n the results section. documented in this encounter Results Surgical Pathology Report (09/17/2016 5:30 PM EDT) Component Value Ref Test Analysis Performed At [facility] Range Method Time Signature Surgical [id number] ?Location: [facility] Pathology [place] Report The signing pathologist has (i) examined [...] provided Clinical Diagnosis: None provided Referring Identifier: ??[id number] SPECIMEN PROCESSING A. - Labeled/Fixative: Cyst right [...] Organization Address City/State/[place] [address] documented in this encounter Visit Diagnoses Not on filedocumented in this encounter Care Teams Powdered Sugar Pulverizer Operator Relationship Specialty Start Date End Date Leeanne Schultz MD PCP - General 10/28/13 [address] [place] [address] documented as of this encounter
--- OUTSIDE RECORDS SUMMARY | 2022-03-09 01:12 | XMS_ITS | Encounter Summary ---
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 ? August 2007, MIS treated in [place] ? Right lateral thigh. 6. 10/2006 Right lower back, mild to moderate DN , Excised 7. She grew up in [place] with a history of extensive sun exposure. [...] was prescribed betamethasone by her doctor in [place]. This has not helped. She notesthat she uses intranasal steroids for allergies daily. Does not currently take and antihistamine. She comments she is still having dysesthsia on the left mu-ism and ear area. She was seen by [...] of this 25 minute appointment were spent [id number] in counseling with this patient. Wediscussed pathophysiology, [...] by: MANDA Ndiaye MD Section of Dermatology [facility] documented in this encounter Plan of Treatment Upcoming Encounters Date Type Specialty Care Team Description 03/14/2022 Office Visit Dermatology [place] Edgar MD ONE [facility] DR DIANA CANAS-DERMAT [place], [place] [address] (Wo rk) documented as of [...] cyst documented in this encounter Care Teams Religious Leader Relationship Specialty Start Date End Date Leeanne Schultz MD PCP - General 10/28/13 [address] [place] [address] documented as of this encounter
--- OUTSIDE RECORDS SUMMARY | 2022-03-09 01:12 | XMS_ITS | Encounter Summary ---
:1945 Author Organization [facility] [place] [address] Care Team Providers Name Role Phone Leeanne Schultz MD Primary Care Provider Reason for Visit Reason Comments Skin Check Encounter Details Date Type Department Care Team Description 04/22/2015 Office Visit Dermatology at [place] in lesion (Primary Dx); [place] PETER History of basal cell cancer; [address] [facility] [place] [address] [facility]-DERMATOLOGY [place], [place] [address] Social History Tobacco Use Types [...] back. ? August 2007, MIS treated in [place] ? Right lateral thigh. 6. 10/2006 Right lower back, mild to moderate DN , Excised 7. She grew up in [place] with a history of extensive sun exposure. [...] that she had 3 melanomas treated in [place] including her left and right thighs. ADR: [...] encounter. Ni Zamudio MD Section of Dermatology [facility] documented in this encounter Plan of Treatment Upcoming Encounters Date Type Specialty Care Team Description 03/14/2022 Office Visit Dermatology [place] Edgar MD ONE [facility] [address]-DERMAT [place], [place] [address] (Wo rk) documented as of [...] Surgical Pathology Report (04/22/2015 5:06 PM EST) [facility] Method Time Signature Surgical [id number] ?Location: [facility] Pathology [facility] Report The signing pathologist has (i) [...] Organization Address City/State/[place] [address] [facility] Specimen to Pathology (NON-OR) (04/22/2015 5:06 [...] Organization Address City/State/[place] [address] GUILLERMINA WILKS documented in this encounter Visit Diagnoses Diagnosis Skin lesion - Primary Unspecified disorder of skin and subcuta neous tissue History of basal cell cancer Personal history of other malignant neop lasm of skin History of melanoma Personal history of malignant melanoma o f skin documented in this encounter Care Teams Field Artillery Operations Specialist Relationship Specialty Start Date End Date Leeanne Schultz MD PCP - General 10/28/13 [address] [place] [address] documented as of this encounter
--- OUTSIDE RECORDS SUMMARY | 2022-03-09 01:12 | XMS_ITS | Encounter Summary ---
:1945 Author Organization [facility] [place] [address] Care Team Providers Name Role Phone Leeanne Schultz MD Primary Care Provider Encounter Details Date Type Department Care Team Description 01/09/[address] [facility] Cm Kaminski III, [address] [place] [address] [facility] [phone] DIANA MEDINA-DERMAT [place] [phone] (Wo rk) Social History Tobacco Use Types [...] MD Section of Dermatology [facility] documented in this encounter Plan of Treatment Upcoming Encounters Date Type Specialty Care Team Description 03/14/2022 Office Visit Dermatology [place] Edgar MD [facility] ER DR DIANA MEDINA-DERMAT [place], [place] [address] (Wo rk) documented as of this encounter Visit Diagnoses Not on filedocumented in this encounter Care Teams Spacecraft Systems Engineer Relationship Specialty Start Date End Date Leeanne Schultz MD PCP - General 10/28/13 [address] [place] [address] documented as of this encounter
--- OUTSIDE RECORDS SUMMARY | 2022-03-09 01:12 | XMS_ITS | Encounter Summary ---
:1945 Author Organization [facility] [place] [address] Care Team Providers Name Role Phone Leeanne Schultz MD Primary Care Provider Reason for Visit Reason Comments Advice Only Encounter Details Date Type Department Care Team Description 11/21/2018 Office Visit Dermatology at Jan Page MD [facility] DR [place] [address] Encounter for Kiko Barrera Lexie, CCMA cosmetic procedure [address] [place] [address] Social History Tobacco Use Types Packs/Day Years Used Date Former Smoker Smokeless Tobacco: Never Used Alcohol Use Standard Drinks/Week Comments Yes 7 (1 standard drink = 0.6 oz pure alcoho l) Sex Assigned at Date Recorded Female 10/02/2020 6:58 PM EDT documented as of this encounter Progress Notes Kiko Figueroa - 11/21/2018 10:30 AM EDT DERMATOLOGY INTERNAL AFFAIRS COMMANDER NOTE Date of service: 11/21/2018 Leeanne Bush [...] regimen: regimen or products: Mild Gel Cleanser, Turkmen, Vashe toner, Cotz reviewed by:DW date: 11/21/2018 -instructions in AVS dated 11/21/2018 -discussed importance of meticulous sun protection # Photography: NEEDS PHOTOS Patient charged today: no charge FOLLOW UP WHEN: Fall 2018 FOR WHAT: skin care f/u LENGTH OF VISIT: 30 min NUMBING?: no PICTURES NEEDED? yes COST: no charge NOTES: Kiko Figueroa Package Checker documented in this encounter Plan of Treatment Upcoming Encounters Date Type Specialty Care Team Description 03/14/2022 Office Visit Dermatology [place] Edgar MD [facility] DR DIANA CANAS-DERMAT [place], [place] [address] (Wo rk) documented as of this encounter Visit Diagnoses Diagnosis Encounter for cosmetic procedure documented in this encounter Care Teams Civil Engineering Drafter Relationship Specialty Start Date End Date Leeanne Schultz MD PCP - General 10/28/13 [address] [place] [address] documented as of this encounter
--- OUTSIDE RECORDS SUMMARY | 2022-03-09 01:12 | XMS_ITS | Encounter Summary ---
:1945 Author Organization [facility] [place] [address] Care Team Providers Name Role Phone Leeanne Schultz MD Primary Care Provider Encounter Details Date Type Department Care Team Description 10/24/2016 Telephone Dermatology at [facility] Cm Kaminski III, [address] [place] [address] [facility] [phone] [facility] MEDINA-DERMAT [place] [phone] (Wo rk) Social History Tobacco Use Types [...] planned. Cm Kaminski MD Section of Dermatology [facility] documented in this encounter Plan of Treatment Upcoming Encounters Date Type Specialty Care Team Description 03/14/2022 Office Visit Dermatology [place] Edgar MD [facility] DR DIANA MEDINA-DERMAT [place], [place] [address] (Wo rk) documented as of this encounter Visit Diagnoses Not on filedocumented in this encounter Care Teams Customer Support Associate Relationship Specialty Start Date End Date Leeanne Schultz MD PCP - General 10/28/13 [address] [place] [address] documented as of this encounter
--- OUTSIDE RECORDS SUMMARY | 2022-03-09 01:12 | XMS_ITS | Encounter Summary ---
:1945 Author Organization [facility] [place] [address] Care Team Providers Name Role Phone Leeanne Schultz MD Primary Care Provider Encounter Details Date Type Department Care Team Description 12/16/2018 Notes Only Dermatology at [facility] Brigitte Angeles MD [address] [facility] [place] [address] [facility] [phone] [place] [phone] (Wo rk) Social History Tobacco Use Types [...] Note Leeanne Bush : 1945 Next Scheduled [facility] appt with Dr. Ramirez: 01/01/2019 Relevant Medical [...] left lateral alex, pigmented AK, s/p biopsy Sports Official Cm Kaminski MD Procedure Screening Questions: Yes/No [...] 03/14/2022 Office Visit Dermatology [place] Edgar MD [facility] DR DIANA CANAS-DERMAT [place], [place] [address] (Wo rk) documented as of this encounter Visit Diagnoses Not on filedocumented in this encounter Care Teams Sports Development Officer Relationship Specialty Start Date End Date Leeanne Schultz MD PCP - General 10/28/13 [address] [place] [address] documented as of this encounter
--- OUTSIDE RECORDS SUMMARY | 2022-03-09 01:12 | XMS_ITS | Encounter Summary ---
:1945 Author Organization [facility] [place] [address] Care Team Providers Name Role Phone Leeanne Schultz MD Primary Care Provider Reason for Visit Reason Comments Procedure Encounter Details Date Type Department Care Team Description 12/23/2019 [facility] [place] [facility] MD keratosis) [address] [place] [address] [address] [phone] [facility] [place], [place] [address] Social History Tobacco Use Types [...] back. ? August 2007, MIS treated in [place] ? Right lateral thigh. 6. 10/2006 Right [...] last seen on 09/25/2018 ?? Preferred pharmacy: [address] ?? Procedure Screening Questions: Allergy to [...] by: Janett Panchal MD Resident in Dermatology [facility] Patient seen and evaluated with staff surgery technician: Rosina Banks MD Department of Dermatology [facility] Rosina Banks MD - 12/23/2019 9:30 [...] Visit Dermatology [place] Edgar MD [facility] ER DR DIANA CANAS-DERMAT [place], [place] [address] (Wo rk) documented as of this encounter Visit Diagnoses Diagnosis AK (actinic keratosis) Actinic keratosis documented in this encounter Care Teams Pulp Mill Supervisor Relationship Specialty Start Date End Date Leeanne Schultz MD PCP - General 10/28/13 [address] [place] [address] documented as of this encounter
--- OUTSIDE RECORDS SUMMARY | 2022-03-09 01:12 | XMS_ITS | Encounter Summary ---
:1945 [place] [address] Care Team Providers Name Role Phone Leeanne Schultz MD Primary Care Provider Reason for Visit Reason Comments Follow-up Skin Check Encounter Details Date Type Department Care Team Description 11/05/2019 [facility] basal [facility]; [place] FONSECA MD History of melanoma; [address] [facility] Neoplasm of uncertain behavi or of skin; [place], [place] Multiple benign nevi; [address] [facility] Weiss angioma; [phone] RD-DERMATOLGY [place] (actinic keratosis); [place], [place] [address] Seborrheic keratoses; [phone] Lentigines; (Work) History of melanoma in situ; [...] Pt last seen on 09/25/2018 Preferred pharmacy: [address] Procedure Screening Questions: Allergy to lidocaine [...] Cm Kaminski MD Section of Dermatology [facility] documented in this encounter Plan of Treatment Upcoming Encounters Date Type Specialty Care Team Description 03/14/2022 Office Visit Dermatology [place] Edgar MD [facility] DR DIANA CANAS-DERMAT [place], [place] [address] (Wo rk) documented as of [...] AM 0 2:53 EDT PM EDT Narrative [facility] - 11/05/2019 2:53 PM EDT Specimen requisition ordered. ??Separate Pathology report to follow Resulting Agency Comment Spec In Lab Cm Kaminski III, MD PATHOLOGY/CYTOLOGY ORDERABLE S Performing Organization Address City/State/[place] [address] Surgical Pathology Report (11/05/2019 9:05 AM EDT) Component Value Ref Test Analysis Performed At [facility] gist Range Method Time Signature Surgical [id number] ? Location: [facility] Report The signing pathologist has (i) examined the relevant preparation(s) for the [facility] specimen(s) and (ii) rendered or confirmed the diagnosis(es) . HOSPITAL LABORATORY . ?Surgic al Pathology DIAGNOSIS Right infraorbital cheek, skin shave biopsy: - Pigmented ??actinic keratosis Electronically signed by: ??Eron Vargas MD Verified: ??11/12/2019 ?Dermatopathologist Performed at: ??-[facility] [place]. [place], [place], [place] ADDITIONAL STUDIES Interpretation of multiple s [...] Organization Address City/State/[place] [address] documented in this encounter [...] d documented in this encounter Care Teams Mender Knit Goods Relationship Specialty Start Date End Date Leeanne Schultz MD PCP - General 10/28/13 [address] [place] [address] documented as of this encounter
--- OUTSIDE RECORDS SUMMARY | 2022-03-09 01:12 | XMS_ITS | Encounter Summary ---
:1945 Author Organization [facility] [place] [address] Care Team Providers Name Role Phone Leeanne Schultz MD Primary Care Provider Encounter Details Date Type Department Care Team Description 01/09/2018 Hospital Encounter [place] [address] Social History Tobacco Use Types Packs/Day [...] Visit Dermatology [place] Edgar MD [facility] ER DR DIANA CANAS-DERMAT [place], [place] [address] (Wo rk) documented as of [...] Organization Address City/State/ZIP Code Phon e Number [place], [place] documented in this encounter Visit Diagnoses Not on filedocumented in this encounter Care Teams Hands Assembler Relationship Specialty Start Date End Date Leeanne Schultz MD PCP - General 10/28/13 [address] [place] [address] documented as of this encounter
--- OUTSIDE RECORDS SUMMARY | 2022-03-09 01:12 | XMS_ITS | Encounter Summary ---
:1945 Author Organization [facility] [place] [address] Care Team Providers Name Role Phone Leeanne Schultz MD Primary Care Provider Reason for Visit Reason Comments Travel Consult Encounter Details Date Type Department Care Team Description 12/19/2015 Office Visit Infectious Disease at [facility] or prophylactic vaccination and inoculation against viral hepatitis; [facility] Chong Counseling about travel; [facility] Motion si ckness, initial encounter; Drive H/[place] [address] Social History Tobacco Use Types Packs/Day [...] (list from first to last): Cruise from [place] to [place] via [facility] call [facility] [place], [facility], [facility], [facility], [place] then to [place], [place]. Departure date: 01/19/16 Length of trip: [...] [place] Edgar MD [facility] ER DR IDANA CANAS-DERMAT [place], [place] [address] (Wo rk) documented as of this encounter Visit Diagnoses Diagnosis Need for prophylactic vaccination and in oculation against viral hepatitis Counseling about travel Other specified counseling Motion sickness, initial encounter H/O motion sickness Personal history of other specified dise ases documented in this encounter Care Teams Revenue Accounting Manager Relationship Specialty Start Date End Date Leeanne Schultz MD PCP - General 10/28/13 [address] [place] [address] documented as of this encounter
--- OUTSIDE RECORDS SUMMARY | 2022-03-09 01:12 | XMS_ITS | Encounter Summary ---
:1945 Author Organization [facility] [place] [address] Care Team Providers Name Role Phone Leeanne Schultz MD Primary Care Provider Reason for Visit Reason Onset Date Comments Other 07/29/2015 Telephone Encounter Details Date Type Department Care Team Description 07/29/2015 Telephone Dermatology at [place] Lucas MD Other (Telephone) [facility] [address] [facility] [place] [address] [place] [address] [phone] (Wo rk) Social History Tobacco Use Types [...] VM. Recommended she see her [place] since it was hard to give her [...] she saw her. Patient has been in [place] for a long time, patient will not be back until after the 8th ofApril. Patient was prescribed beta methadone by a GIM in [place] and it helped for a little while but is no longer working. Patient stated she used hydrocortisone and it is no longer effective. documented in this encounter Plan of Treatment Upcoming Encounters Date Type Specialty Care Team Description 03/14/2022 Office Visit Dermatology [place] Edgar MD ONE [facility] [address] DIANA CANAS-DERMAT [place], [place] [address] (Wo rk) documented as of this encounter Visit Diagnoses Not on filedocumented in this encounter Care Teams Groutman Relationship Specialty Start Date End Date Leeanne Schultz MD PCP - General 10/28/13 [address] [place] [address] documented as of this encounter
--- OUTSIDE RECORDS SUMMARY | 2022-03-09 01:12 | XMS_ITS | Encounter Summary ---
:1945 Author Organization [facility] Address [facility] [place] [address] Care Team Providers Name Role Phone Leeanne Schultz MD Primary Care Provider Encounter Details Date Type Department Care Team Description 09/25/2018 Office Visit Dermatology at Cm Aguirre; [place] FONSECA MD Multiple benign nevi; [address] [facility] EIC (epidermal inclusion cys t); [place] [address] [address] History of basal cell carcinoma; [phone] [facility] History of anson noma; RD-DERMATOLGY History of melanoma in situ; [place], [place] [address] Skin exam for malignant neoplasm; [phone] Sun-damaged ski n (Work) Social History Tobacco [...] encounter. Cm Kaminski MD Section of Dermatology [facility] documented in this encounter Plan of Treatment Upcoming Encounters Date Type Specialty Care Team Description 03/14/2022 Office Visit Dermatology [place] Edgar MD [facility] DR DIANA CANAS-DERMAT [place], [place] [address] (Wo [...] diation documented in this encounter Care Teams Money Laundering Investigator Relationship Specialty Start Date End Date Leeanne Schultz MD PCP - General 10/28/13 [address] [place] [address] documented as of this encounter
--- OUTSIDE RECORDS SUMMARY | 2022-03-09 01:12 | XMS_ITS | Encounter Summary ---
:1945 Author Organization [facility] [place] [address] Care Team Providers Name Role Phone Leeanne Schultz MD Primary Care Provider Encounter Details Date Type Department Care Team Description 10/06/2015 Telephone Dermatology at [facility] Ni Zamudio MD [address] [place] [address] DIANA CANAS-DERMATOLOGY [phone] [place], [place] [address] (Wo rk) Social History Tobacco [...] [facility] ER DR DIANA [place], [place] [address] (Wo rk) documented as of this encounter Visit Diagnoses Not on filedocumented in this encounter Care Teams Desk Operator Relationship Specialty Start Date End Date Leeanne Schultz MD PCP - General 10/28/13 [address] [place] [address] documented as of this encounter
--- OUTSIDE RECORDS SUMMARY | 2022-03-09 01:12 | XMS_ITS | Encounter Summary ---
:1945 Author Organization [facility] [place] [address] Care Team Providers Name Role Phone Leeanne Schultz MD Primary Care Provider Encounter Details Date Type Department Care Team Description 10/03/2018 Refill Dermatology at [facility] Cm Corbett III, MD [address] [facility] [address] [facility] [phone] [place], [place] [address] (Wo rk) Social History Tobacco [...] seeing Dr. Burleson. Please send script to [facility] [place], [place]. Patient can be reached at [phone] with any questions or concerns. documented in this encounter Plan of Treatment Upcoming Encounters Date Type Specialty Care Team Description 03/14/2022 Office Visit Dermatology [place] Edgar MD [facility] [address] DIANA CANAS-DERMAT [place], [place] [address] (Wo rk) documented as of this encounter Visit Diagnoses Not on filedocumented in this encounter Care Teams Gas Torch Brazier Relationship Specialty Start Date End Date Leeanne Schultz MD PCP - General 10/28/13 [address] [place] [address] documented as of this encounter
--- OUTSIDE RECORDS SUMMARY | 2022-03-09 01:12 | XMS_ITS | Encounter Summary ---
:1945 [place] [address] Care Team Providers Name Role Phone Leeanne Schultz MD Primary Care Provider Reason for Visit Reason Comments Skin Check Encounter Details Date Type Department Care Team Description 10/22/2016 [facility] (Primary Dx); Geneva FONSECA MD Skin lesion of right arm; [address] [facility] SK (seborrheic keratosis); [place] [address] Lentisushant; [phone] [facility] Multiple benign nevi; RD-DERMATOLGY History of melanoma [place], [place] [address] Social History Tobacco Use Types [...] or concerns, please call the office at [phone]. If it is after 5PM, or a holiday or weekend, please call [phone] and ask for the Dental Laboratory Manager on-call. documented in this encounter Progress Notes [...] spots and is checked regularly by a sole cutter. She is unaware of any new spots [...] encounter. Cm Kaminski MD Section of Dermatology [facility] documented in this encounter Plan of Treatment Upcoming Encounters Date Type Specialty Care Team Description 03/14/2022 Office Visit Dermatology [place] Edgar MD [facility] [address] DIANA CANAS-DERMAT [place], [place] [address] (Wo rk) documented as of [...] Value Ref Test Analysis Performed At [facility] gist Range Method Time Signature Surgical [id number] ?Location: [facility] Pathology [place] Report The signing pathologist has (i) examined [...] Organization Address City/State/ZIP Code Phon e Number [place] [id number] Specimen to Pathology (NON-OR) (10/22/2016 11:37 AM EDT) Specimen Anatomical Collection Method Collection Time Receive d Time (Source) Location / / Volume Laterality AP Specimen 10/22/2016 11:37 10/22/2016 3:47 AM EDT PM EDT Narrative [facility] - 10/22/2016 3:48 PM EDT Specimen requisition ordered. ??Separate Pathology report to follow Resulting Agency Comment Spec In Lab Cm Kaminski III, MD PATHOLOGY/CYTOLOGY ORDERABLE S Performing Organization Address City/State/[place] [address] documented in this encounter [...] skin documented in this encounter Care Teams Pipe Buffer Relationship Specialty Start Date End Date Leeanne Schultz MD PCP - General 10/28/13 [address] [place] [address] documented as of this encounter
--- OUTSIDE RECORDS SUMMARY | 2022-03-09 01:12 | XMS_ITS | Encounter Summary ---
:1945 Author Organization [facility] [place] [address] Care Team Providers Name Role Phone Leeanne Schultz MD Primary Care Provider Reason for Visit Reason Comments Procedure Encounter Details Date Type Department Care Team Description 11/21/2018 [facility] cosmetic procedure [address] [place] [address] [facility]-DERMATOLOGY [place], [place] [address] Social History Tobacco Use Types [...] avoid include: C Bright, TE Pads, Exfoliating French, Vitascrub, Cebatrol, Glycogent, Melamix, Tretinoin, Retamax, Brightenex, [...] faded but be gentle when using any kittitian or scrub. ??? The recommended time interval between treatments is 3-4 weeks. ??? Avoid sun exposure for at least 2 weeks following your treatment. Questions and/or concerns please call: ???s appointment legal secretary On weekends of off hours please call [facility] main number and ask for the relay record clerk pension adviser: Or call [phone] Burleson's cell IPL Frequently Asked Questions (FAQs) What is Photorejuvenation? Photorejuvenation is a light-based treatment used to improve the skin. It treats brown and red discoloration, blood vessels and overall tone and texture. Photorejuvenation can be performed using a variety of lasers or light sources. We use an Intense Pulsed Light (or IPL) unit made by [employer] ([employer]) and occasionally use a separate alexandrite [...] Wash face with lukewarm water. 2. Exfoliating French: Apply to moistened face, massage for 60 [...] new product slowly. General Precautions *Stop Exfoliating French 5 days before any skin procedure (waxing, laser, chemical peel or facials): Sun Precautions Exfoliating French can increase your risk of sunburn and [...] your skin care regimen. Extra Information Exfoliating French: Benefits: 1) Increases circulation and skin turnover [...] the case the patient must notify the [facility] within 2 weeks of purchase [...] regimen: regimen or products: Mild Gel Cleanser, French, Vashe toner, Cotz reviewed by:LATOSHA date: 11/21/2018 [...] encounter. Angelita Burleson MD Section of Dermatology [facility] documented in this encounter Plan of Treatment Upcoming Encounters Date Type Specialty Care Team Description 03/14/2022 Office Visit Dermatology [place] Edgar MD [facility] ER DR DIANA CANAS-DERMAT [place], [place] [address] (Wo rk) documented as of this encounter Visit Diagnoses Diagnosis Encounter for cosmetic procedure documented in this encounter Care Teams Mold Setter Relationship Specialty Start Date End Date Leeanne Schultz MD PCP - General 10/28/13 [address] [place] [address] documented as of this encounter
--- OUTSIDE RECORDS SUMMARY | 2022-03-09 01:12 | XMS_ITS | Encounter Summary ---
:1945 Author Organization [facility] [place] [address] Care Team Providers Name Role Phone Leeanne Schultz MD Primary Care Provider Encounter Details Date Type Department Care Team Description 01/09/2018 Hospital Encounter [place] [address] Social History Tobacco Use Types Packs/Day [...] Visit Dermatology [place] Edgar MD [facility] ER DR DIANA CANAS-DERMAT [place], [place] [address] (Wo rk) documented as of [...] Organization Address City/State/ZIP Code Phon e Number [place], [place] documented in this encounter Visit Diagnoses Not on filedocumented in this encounter Care Teams Bankruptcy Assistant Relationship Specialty Start Date End Date Leeanne Schultz MD PCP - General 10/28/13 [address] [place] [address] documented as of this encounter
--- OUTSIDE RECORDS SUMMARY | 2022-03-09 01:12 | XMS_ITS | Encounter Summary ---
:1945 Author Organization [facility] [place] [address] Care Team Providers Name Role Phone Leeanne Schultz MD Primary Care Provider Encounter Details Date Type Department Care Team Description 09/22/2020 [facility] (epidermal Road inclusion cyst) [address] [place] [address] [address] [facility]-DER[facility]Y [place], [place] [address] Social History Tobacco Use Types [...] treated in [place] ? Right lateral thigh. 07/17/2014,??MIS, left upper [...] bed use y She grew up in [place] with a [...] - Patient opted to proceed with excision. [place] will schedule patient for next available surgical [...] and signed by: [place] Edgar MD Dermatology [facility] documented in this encounter Plan of Treatment Upcoming Encounters Date Type Specialty Care Team Description 03/14/2022 Office Visit Dermatology [place] Edgar MD [facility] ER DR DIANA CANAS-DERMAT [place], [place] [address] (Wo rk) documented as of this encounter Visit Diagnoses Diagnosis EIC (epidermal inclusion cyst) Sebaceous cyst documented in this encounter Care Teams Animal Taxonomist Relationship Specialty Start Date End Date Leeanne Schultz MD PCP - General 10/28/13 [address] [place] [address] documented as of this encounter
--- OUTSIDE RECORDS SUMMARY | 2022-03-09 01:12 | XMS_ITS | Encounter Summary ---
:1945 Author Organization [facility] [place] [address] Care Team Providers Name Role Phone Leeanne Schultz MD Primary Care Provider Reason for Visit Reason Comments Skin Lesion hx of Melanoma Encounter Details Date Type Department Care Team Description 04/14/2018 Office Visit Dermatology at [facility] Veronica Souza oplasm of [facility], [place] behavior of skin [address] [place] [address] [facility]-DER[facility]OLOGY [place], [place] [address] Social History Tobacco Use Types [...] until the wound is healed Please call [phone] if you have questions or concerns. * [...] Esmer Souza) and documented with patient consent. [facility] [id number] RTC: Pending pathology and as schedule with Dr. Kaminski for skin check. Note initiated by Iyv Pollack CMA. I, Stephanie Gonzalez, have performed the documentation for this encounter in the presence of and acting as a scribe for Veronica Souza PA-C (Bri). I performed the services which were documented by the scribe, and I agree with the accuracy of the documentation in this encounter. Veronica Souza PA-C Reviewed and signed by Veronica Souza PA-C [facility] Patient seen in conjunction with staff oyster farmer: Meek Ramirez MD Section of Dermatology [facility] Meek Ramirez MD - 04/14/2018 4:00 PM EST Patient seen in conjunction with Veronica Souza PA-C (Bri) Spot check R leg, hx of numerous skin cancers, scaly tender spot on leg. SCC vs. SCCis - plan on biopsy today. Signed by: MEEK RAMIREZ MD Section of Dermatology [facility] Janice Reyez - 04/14/2018 4:00 PM EST No answer or voicemail so sent reminder letter to call for appointment. documented in this encounter Plan of Treatment Upcoming Encounters Date Type Specialty Care Team Description 03/14/2022 Office Visit Dermatology [place] Edgar MD [facility] ER DR DIANA CANAS-DERMAT [place], [place] [address] (Wo rk) documented as [...] PM 8 EST 10:[address] [facility] - 04/15/2018 10:00 AM EST Specimen requisition ordered. ??Separate Pathology report to follow Resulting Agency Comment Spec In Lab Meek Ramirez MD PATHOLOGY/CYTOLOGY ORDERABLE S Performing Organization Address City/State/[place] [address] Surgical Pathology Report (04/14/2018 4:58 PM EST) Component Value Ref Test Analysis [facility] gist Range Method Time Signature Surgical [id number] ? Location: [facility] Report The signing pathologist has (i) examined the relevant preparation(s) for the [facility] specimen(s) and (ii) rendered or confirmed the diagnosis(es) . HOSPITAL LABORATORY . 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 Dept. of Pathology, [place], [place] CLINICAL INFORMATION Specimen Submitted: A - [...] Organization Address City/State/[place] [address] documented in this encounter Visit Diagnoses Diagnosis Neoplasm of uncertain behavior of skin documented in this encounter Care Teams Obiee Lead Developer Relationship Specialty Start Date End Date Leeanne Schultz MD PCP - General 10/28/13 [address] [place] [address] documented as of this encounter
--- OUTSIDE RECORDS SUMMARY | 2022-03-09 01:12 | XMS_ITS | Encounter Summary ---
:1945 Author Organization [place] [address] Care Team Providers Name Role Phone Leeanne Schultz MD Primary Care Provider Encounter Details Date Type Department Care Team Description 06/13/2020 Refill Dermatology at [facility] Angelita Burleson MD [address] [place] [address] [facility]-DER[facility] [phone] [place], [place] [address] (Wo rk) Social History Tobacco [...] she would like her Retin-a sent to [facility] in [facility]. Please call patient with any concerns [phone] documented in this encounter Plan of Treatment Upcoming Encounters Date Type Specialty Care Team Description 03/14/2022 Office Visit Dermatology [place] Edgar MD [facility] DR DIANA CANAS-DERMAT [place], [place] [address] (Wo rk) documented as of this encounter Visit Diagnoses Not on filedocumented in this encounter Care Teams Concrete Paver Relationship Specialty Start Date End Date Leeanne Schultz MD PCP - General 10/28/13 [address] [place] [address] documented as of this encounter
--- OUTSIDE RECORDS SUMMARY | 2022-03-09 01:12 | XMS_ITS | Encounter Summary ---
:1945 Author Organization [facility] [place] [address] Care Team Providers Name Role Phone Leeanne Schultz MD Primary Care Provider Encounter Details Date Type Department Care Team Description 01/10/2018 Hospital Encounter [place] [address] Social History Tobacco Use Types Packs/Day [...] Office Visit Dermatology [place] Edgar MD [facility] [address] DIANA CANAS-DERMAT [place], [place] [address] (Wo rk) documented as of [...] Phon e Number DH RAD DH RAD [place], [place] documented in this encounter Visit Diagnoses Not on filedocumented in this encounter Care Teams Blasting Gang Miner Relationship Specialty Start Date End Date Leeanne Schultz MD PCP - General 10/28/13 [address] [place] [address] documented as of this encounter
--- OUTSIDE RECORDS SUMMARY | 2022-03-09 01:12 | XMS_ITS | Encounter Summary ---
:1945 Author Organization [facility] [place] [address] Care Team Providers Name Role Phone Leeanne Schultz MD Primary Care Provider Encounter Details Date Type Department Care Team Description 11/12/2019 Telephone Dermatology at [facility] Cm Kaminski III, [address] [place] [address] [facility] [phone] DIANA MEDINA-DERMAT [place], [place] [address] (Wo rk) Social History Tobacco [...] can we coordinate with Tabitha - annie) mC Kaminski MD Section of Dermatology [facility] documented in this encounter Plan of Treatment Upcoming Encounters Date Type Specialty Care Team Description 03/14/2022 Office Visit Dermatology [place] Edgar MD [facility] ER DR DIANA MEDINA-DERMAT [place], [place] [address] (Wo rk) documented as of this encounter Visit Diagnoses Not on filedocumented in this encounter Care Teams Credit Report Checker Relationship Specialty Start Date End Date Leeanne Schultz MD PCP - General 10/28/13 [address] [place] [address] documented as of this encounter
--- OUTSIDE RECORDS SUMMARY | 2022-03-09 01:12 | XMS_ITS | Encounter Summary ---
:1945 Author Organization [facility] [place] [address] Care Team Providers Name Role Phone Leeanne Schultz MD Primary Care Provider Encounter Details Date Type Department Care Team Description 01/10/2018 Hospital Encounter [place] [address] Social History Tobacco Use Types Packs/Day [...] 03/14/2022 Office Visit Dermatology [place] Edgar MD [facility] DR DIANA CANAS-DERMAT [place], [place] [address] (Wo rk) documented as of [...] Code Phon e Number DH RAD DH [place], [place] documented in this encounter Visit Diagnoses Not on filedocumented in this encounter Care Teams Orthodontic Treatment Coordinator Relationship Specialty Start Date End Date Leeanne Schultz MD PCP - General 10/28/13 [address] [place] [address] documented as of this encounter
--- OUTSIDE RECORDS SUMMARY | 2022-03-09 01:12 | XMS_ITS | Encounter Summary ---
:1945 Author Organization [facility] [place] [address] Care Team Providers Name Role Phone Leeanne Schultz MD Primary Care Provider Reason for Visit Reason Comments Rectal Bleeding Auth/Cert Specialty Diagnoses / Procedures Referred By Contact Refer red To Contact Diagnoses Abdominal pain Referral ID Status Reason Start Date Expiration Date Visits Requ ested Visits Authorized [id number] 1 1 Encounter Details Date Type Department Care Team Description 01/10/2018 - Hospital Encounter 2 Sarah Raines MD [facility] [place] [id number] Ab[facility], [facility] [place] [address] unspecified [place] [id number] Social History Tobacco Use Types Packs/Day Years [...] PMH HTN who is s/p colonoscopy at [facility] on 01/09/18. Following the colonoscopy, she presented to [facility] with BRBPR and abdominal pain. She stated she had not felt well since the colonoscopy. She had one episode of passing multiple quarter-sized clots per rectum the morning of 01/10/18. She had progressive abdominal pain during the day and decreased appetite which prompted her to go to [facility] ED. On arrival she was hemodynamically normal and labs were within normal limits. She underwent CT scan which showed pneumoperitoneum. She then elected to leave the ED AMA to come to [facility] for further care. On arrival to [facility] she was hemodynamically normal. Hospital Course: Leeanne [...] have any questions or concerns, please call [phone] before 5pm Saturday through Saturday; [phone] after 5pm and on weekends. Diet: You [...] Leeanne Schultz MD [address] / [facility] [id number] documented in this encounter Discharge Instructions Discharge InstructionsWeTosin medrano PA - 01/13/2018 11:03 AM EDT Instructions Given to Patient at Discharge: ?? Minimally Invasive Surgery Discharge Instructions ?? If you have any questions or concerns, please call [phone] before 5pm Saturday through Saturday; [phone] after 5pm and on weekends. ?? Diet: [...] as of this encounter Progress Notes Albert Peera - 01/13/2018 12:59 PM EDT [employer] Encounter Note Narrative: Responded to consult request, Ms. Carvalho awake, alert, sitting up in bed with her seated beisde Assessment: A bright minded, capable and supportive couple, dealing with unanticipated consequence of a colonoscopy, requiring convalescence. Intervention and Outcome: Presence, conversation and reflection appreciated. Follow-up: No Time in Direct Care: 20 mins. iVolet Aguilar 01/11/2018 Rhina George RN - 01/13/2018 [...] BILIDIR 0.1 No results for input(s): PHART, CJS8KOA, PO2ART, TEX8ZYC, BEART in the last 168 hours. Microbiology: [...] Code, Antonina Monroy MD 01/11/2018 MIS Pager [phone] Attending Note I saw the pt with [...] since this morning. She went back to [facility] this afternoon and was admitted to the hospital. [facility] because she did not feel [...] Negative mcL Appearance UA Clear Clear Spec [place] UA 1.026 1.002 - 1.030 Color UA [...] interpretation and agree with the findings, Sg Jmaison at 01/11/2018 12:12 AM Consults: -General surgery [...] Howard MD - 01/11/2018 1:29 AM EDT [facility] Department of Surgery Inpatient Consult Note Consultation Requested by: Sylvia Olvera MD HPI: We are seeing Leeanne Bush today at the request of Sylvia Islas MD for evaluationand advice about pneumoperitoneum. This is a 72 y.o. female with PMH HTN who is s/p colonoscopy at [facility] on 01/09/18. She presented to [facility] with BRBPR and abdominal pain. She states she has not felt well since the colonoscopy. She had one episode of passing multiple quarter-sized clots per rectum this morning. She had progressive abdominal pain during the day and decreased appetite which prompted her togo to [facility] ED. On arrival she was hemodynamically normal and labs were within normal limits. She underwent CT scan which showed pneumoperitoneum. She then elected to leave the ED AMA to come to [facility] for further care. On arrival to [facility] she was hemodynamically normal. PMH: Past Medical [...] Will admit for antibiotics and observation. Billy Howrad ED Triage - Linda Kelly RN - [...] Office Visit Dermatology [place] Edgar MD [facility] ER DR DIANA CANAS-DERMAT [place], [place] [address] (Wo rk) documented as of [...] athologist Signature Phosphorus 3.2 2.5 - 4.5 [facility] mg/dL [facility] Specimen Anatomical Collection Method Collection Time Receive d Time (Source) Location / / Volume Laterality Blood specimen 01/13/2018 1:29 AM 018 1:42 (specimen) EDT AM EDT Resulting Agency Comment Spec In Lab Billy Howard MD CHEMISTRY ORDERABLES Performing Organization Address City/State/[place] [address] Magnesium (01/13/2018 1:29 AM EDT) P athologist Signature Magnesium 0.85 0.69 - 1.07 [facility] mmol/L [facility] Specimen Anatomical Collection Method Collection Time Receive d Time (Source) Location / / Volume Laterality Blood specimen 01/13/2018 1:29 AM 018 1:42 (specimen) EDT AM EDT Resulting Agency Comment Spec In Lab Billy Howard MD CHEMISTRY ORDERABLES Performing Organization Address City/State/[place] [address] Basic Metabolic Panel (non-fasting) (01/13/2018 1:29 AM EDT) P athologist Signature Glucose Lvl 109 65 - [address] [facility] mg/dL [facility] Comment: Diabetes: >=200 mg/dL plus symp toms BUN 14 8 - 18 mg/dL [facility] Creatinine 0.80 0.70 - 1.20 mg/dL [facility] Sodium 138 135 - 145 mmol/L [facility] Potassium 4.1 3.5 - 5.0 mmol/L [facility] Comment: Please note: ??Patients with WBC >100,00 0 may have falsely elevated Potassium levels. ??For accurate Potassium quantif ication in these patients send serum separator tube (gold top) for subsequent determinations. ??Contact the Clinical Chemistry Laboratory if there are any qu estions. Chloride 102 98 - 107 mmol/L [facility] CO2 23 22 - 31 mmol/L [facility] Anion Gap 13 5 - 15 mmol/L [facility] Calcium 8.6 8.5 - 10.5 mg/dL [facility] Estimated GFR 74 >=60 mL/min/1.73 m?? [facility] Comment: The eGFR was calculated using the CKD-EP I equation. As with all creatinine based estimates of kidney function, eGFR values calculated with the CKD-EPI equation are not accurate in patients wi th acute kidney failure, extremes of body mass or the acutely ill. http://[email or web address] eGFR 86 >=60 mL/min/1.73 m?? [facility] Comment: The eGFR was calculated using the CKD-EP I equation. As with all creatinine based estimates of kidney function, eGFR values calculated with the CKD-EPI equation are not accurate in patients wi th acute kidney failure, extremes of body mass or the acutely ill. [email or web address] Specimen Anatomical Collection Method Collection Time Receive d Time (Source) Location / / Volume Laterality Blood specimen 01/13/2018 1:29 AM 018 1:42 (specimen) EDT AM EDT Resulting Agency Comment Spec In Lab Billy Howard MD CHEMISTRY ORDERABLES Performing Organization Address City/State/[place] [address] (ABNORMAL) Hemogram (01/13/2018 1:29 AM EDT) Analysis Performed At Patho logist Time Signature WBC 7.4 4.0 - 9.5 [facility] x[facility](3[facility] LABORATORY RBC 3.08 (L) 4.00 - [facility] 5.21 [facility] x10(6)/[facility] LABORATORY Hemoglobin 9.4 (L) 11.7 - [facility] 15.5 gm/dL [facility] Hematocrit 29.6 (L) 35.7 - [facility] 45.8 % [facility] MCV 96.1 (H) 82.6 - [facility] 94.4 [facility] LABORATORY MCH 30.5 27.1 - [facility] 32.0 pg [facility] MCHC 31.8 31.7 - [facility] 35.0 gm/dL [facility] Platelets 353 145 - 357 [facility] x10(3)/[facility] LABORATORY RDWSD 45.2 37.0 - [facility] 46.0 [facility] LABORATORY RDWCV 12.9 11.5 - [facility] [place] 14.1 % [facility] MPV 9.0 7.6 - 12.9 [facility] nRBC % Auto 0.0 % [facility] LABORATORY nRBC Abs Auto 0.000 0.000 - [facility] [place] 0.000 [facility] x10(3)/[facility] LABORATORY Specimen Anatomical Collection Method Collection Time Receive d Time (Source) Location / / Volume Laterality Blood specimen 01/13/2018 1:29 AM 018 1:42 (specimen) EDT AM EDT Resulting Agency Comment Spec In Lab Billy Howard MD HEMATOLOGY ORDERABLES Performing Organization Address City/State/[place] [address] (ABNORMAL) Hemogram (01/12/2018 4:10 AM EDT) Analysis Performed At Patho logist Time Signature WBC 5.1 4.0 - 9.5 [facility] x[facility](3[facility] LABORATORY RBC 2.91 (L) 4.00 - [facility] [place] 5.21 [facility] x10(6)/[facility] LABORATORY Hemoglobin 8.9 (L) 11.7 - [facility] 15.5 gm/dL [facility] Hematocrit 28.2 (L) 35.7 - [facility] 45.8 % [facility] MCV 96.9 (H) 82.6 - [facility] 94.4 [facility] LABORATORY MCH 30.6 27.1 - [facility] [place] 32.0 pg [facility] MCHC 31.6 (L) 31.7 - [facility] 35.0 gm/dL [facility] Platelets 289 145 - 357 [facility] x10(3)/[facility] LABORATORY RDWSD 46.1 (H) 37.0 - [facility] 46.0 [facility] LABORATORY RDWCV 12.8 11.5 - [facility] [place] 14.1 % [facility] MPV 9.1 7.6 - 12.9 [facility] LABORATORY nRBC % Auto 0.0 % [facility]ORY nRBC Abs Auto 0.000 0.000 - [facility] [place] 0.000 [facility] x10(3)/[facility] LABORATORY Specimen Anatomical Collection Method Collection Time Receive d Time (Source) Location / / Volume Laterality Blood specimen 01/12/2018 4:10 AM 018 4:13 (specimen) EDT AM EDT Resulting Agency Comment Spec In Lab Billy Howard MD HEMATOLOGY ORDERABLES Performing Organization Address City/State/ZIP Code Phon e Number [place] [id number] [address] Phosphorus (01/12/2018 4:10 AM EDT) P athologist Signature Phosphorus 3.1 2.5 - 4.5 [facility] mg/dL [facility] Specimen Anatomical Collection Method Collection Time Receive d Time (Source) Location / / Volume Laterality Blood specimen 01/12/2018 4:10 AM 018 4:13 (specimen) EDT AM EDT Resulting Agency Comment Spec In Lab Billy Howard MD CHEMISTRY ORDERABLES Performing Organization Address City/[facility]/ZIP Code Phon e Number [address] Magnesium (01/12/2018 4:10 AM EDT) P athologist Signature Magnesium 0.76 0.69 - 1.07 [facility] mmol/L [facility] Specimen Anatomical Collection Method Collection Time Receive d Time (Source) Location / / Volume Laterality Blood specimen 01/12/2018 4:10 AM 018 4:13 (specimen) EDT AM EDT Resulting Agency Comment Spec In Lab Billy Howard MD CHEMISTRY ORDERABLES Performing Organization Address City/[facility]/ZIP Code Phon e Number [address] (ABNORMAL) Basic Metabolic Panel (non-fasting) (01/12/2018 4:10 AM EDT) athologist Signature Glucose Lvl 57 (L) 65 - 199 [facility] mg/dL [facility] Comment: Diabetes: >=200 mg/dL plus symp toms BUN 11 8 - 18 mg/dL [facility] Creatinine 0.53 (L) 0.70 - 1.20 mg/dL [facility] Sodium 139 135 - 145 mmol/L [facility] Potassium 4.3 3.5 - 5.0 mmol/L [facility] Comment: Please note: [...] CO2 18 (L) 22 - 31 mmol/L [facility] Anion Gap 17 (H) 5 - 15 mmol/L [facility] Calcium 8.2 (L) 8.5 - 10.5 mg/dL [facility] Estimated GFR 96 >=60 mL/min/1.73 m?? [facility] Comment: The eGFR was calculated using the CKD-EP I equation. As with all creatinine based estimates of kidney function, eGFR values calculated with the CKD-EPI equation are not accurate in patients wi th acute kidney failure, extremes of body mass or the acutely ill. [email or web address]/[email or web address] eGFR 111 >=60 mL/min/1.73 m?? [facility] Comment: The eGFR was calculated using the CKD-EP I equation. As with all creatinine based estimates of kidney function, eGFR values calculated with the CKD-EPI equation are not accurate in patients wi th acute kidney failure, extremes of body mass or the acutely ill. [email or web address]://Tapvalue/[facility] Specimen Anatomical Collection Method Collection Time Receive d Time (Source) Location / / Volume Laterality Blood specimen 01/12/2018 4:10 AM 018 4:13 (specimen) EDT AM EDT Resulting Agency Comment Spec In Lab Billy Howard MD CHEMISTRY ORDERABLES Performing Organization Address City/State/[place] [address] (ABNORMAL) Hemogram (01/11/2018 10:06 PM EDT) Analysis Performed At Patho logist Time Signature WBC 6.2 4.0 - 9.5 [facility] x10(3)/[facility] LABORATORY RBC 2.93 (L) 4.00 - [facility] 5.21 [facility] x10(6)/[facility] LABORATORY Hemoglobin 9.2 (L) 11.7 - [facility] 15.5 gm/dL [facility] Hematocrit 28.4 (L) 35.7 - [facility] 45.8 % [facility] MCV 96.9 (H) 82.6 - [facility] 94.4 [facility] LABORATORY MCH 31.4 27.1 - [facility] [place] 32.0 [facility] LABORATORY MCHC 32.4 31.7 - [facility] [place] 35.0 gm/dL [facility] Platelets 293 145 - 357 [facility] [place] x10(3)/[facility] LABORATORY RDWSD 46.4 (H) 37.0 - [facility] [place] 46.0 [facility] LABORATORY RDWCV 13.0 11.5 - [facility] 14.1 % [facility] MPV 8.9 7.6 - 12.9 [facility] [place] [facility] LABORATORY nRBC % Auto 0.0 % [facility]OR[facility]ORY nRBC Abs Auto 0.000 0.000 - [facility] [place] 0.000 [facility] x10(3)/[facility] LABORATORY Specimen Anatomical Collection Method Collection Time Receive d Time (Source) Location / / Volume Laterality Blood specimen 01/11/2018 10:06 8 (specimen) PM EDT 10:09 PM EDT Resulting Agency Comment Spec In Lab Billy Howard MD HEMATOLOGY ORDERABLES Performing Organization Address City/State/[place] [address] (ABNORMAL) Hemogram (01/11/2018 12:54 PM EDT) Analysis Performed At Patho logist Time Signature WBC 6.7 4.0 - 9.5 [facility] x10(3)/[facility] LABORATORY RBC 2.96 (L) 4.00 - [facility] 5.21 [facility] x10(6)/[facility] LABORATORY Hemoglobin 9.3 (L) 11.7 - [facility] [place] 15.5 gm/dL [facility] Hematocrit 28.5 (L) 35.7 - [facility] [place] 45.8 % [facility] MCV 96.3 (H) 82.6 - [facility] [place] 94.4 [facility] LABORATORY MCH 31.4 27.1 - [facility] [place] 32.0 [facility] LABORATORY MCHC 32.6 31.7 - [facility] [place] 35.0 gm/dL [facility] Platelets 282 145 - 357 [facility] [place] x10(3)/[facility] LABORATORY RDWSD 47.3 (H) 37.0 - [facility] 46.0 [facility] LABORATORY RDWCV 13.2 11.5 - [facility] 14.1 % [facility] MPV 9.1 7.6 - 12.9 [facility] LABORATORY nRBC % Auto 0.0 % [facility] LABORATORY nRBC Abs Auto 0.000 0.000 - [facility] 0.000 [facility] x10(3)/[facility] LABORATORY Specimen Anatomical Collection Method Collection Time Receive d Time (Source) Location / / Volume Laterality Blood specimen 01/11/2018 12:54 8 1:03 (specimen) PM EDT PM EDT Resulting Agency Comment Spec In Lab Billy Howard MD HEMATOLOGY ORDERABLES Performing Organization Address City/State/[place] [address] (ABNORMAL) Basic Metabolic Panel (non-fasting) (01/11/2018 5:17 AM EDT) P athologist Signature Glucose Lvl 69 65 - 199 [facility] mg/dL [facility] Comment: Diabetes: >=200 mg/dL plus symp toms BUN 15 8 - 18 mg/dL [facility] Creatinine 0.59 (L) 0.70 - 1.20 mg/dL [facility] Sodium 140 135 - 145 mmol/L [facility] Potassium 3.9 3.5 - 5.0 mmol/L [facility] Comment: Please note: ??Patients with WBC >100,00 0 may have falsely elevated Potassium levels. ??For accurate Potassium quantif ication in these patients send serum separator tube (gold top) for subsequent determinations. ??Contact the Clinical Chemistry Laboratory if there are any qu estions. Chloride 105 98 - 107 mmol/L [facility] CO2 22 22 - 31 mmol/L [facility] Anion Gap 13 5 - 15 mmol/L [facility] Calcium 7.5 (L) 8.5 - 10.5 mg/dL [facility] Estimated GFR 92 >=60 mL/min/1.73 m?? [facility] Comment: The eGFR was calculated using the CKD-EP I equation. As with all creatinine based estimates of kidney function, eGFR values calculated with the CKD-EPI equation are not accurate in patients wi th acute kidney failure, extremes of body mass or the acutely ill. http://Tapvalue/[facility]nk[facility] eGFR 107 >=60 mL/min/1.73 m?? [facility] Comment: The eGFR was calculated using the CKD-EP I equation. As with all creatinine based estimates of kidney function, eGFR values calculated with the CKD-EPI equation are not accurate in patients wi th acute kidney failure, extremes of body mass or the acutely ill. http://Tapvalue/[facility]nk[facility] Specimen Anatomical Collection Method Collection Time Receive d Time (Source) Location / / Volume Laterality Blood specimen 01/11/2018 5:17 AM 018 6:05 (specimen) EDT AM EDT Resulting Agency Comment Spec In Lab Sylvia Olvera MD CHEMISTRY ORDERABLES Performing Organization Address City/State/[place] [address] (ABNORMAL) Hemogram (01/11/2018 5:17 AM EDT) Analysis Performed At Patho logist Time Signature WBC 5.6 4.0 - 9.5 [facility] [place] x10(3)/[facility] LABORATORY RBC 2.81 (L) 4.00 - [facility] [place] 5.21 [facility] x10(6)/[facility] LABORATORY Hemoglobin 8.9 (L) 11.7 - [facility] [place] 15.5 gm/dL [facility] Hematocrit 27.6 (L) 35.7 - [facility] [place] 45.8 % [facility] MCV 98.2 (H) 82.6 - [facility] [place] 94.4 fL [facility] MCH 31.7 27.1 - [facility] [place] 32.0 pg [facility] MCHC 32.2 31.7 - [facility] [place] 35.0 gm/dL [facility] Platelets 276 145 - 357 [facility] [place] x10(3)/[facility] LABORATORY RDWSD 48.8 (H) 37.0 - [facility] 46.0 [facility] LABORATORY RDWCV 13.5 11.5 - [facility] 14.1 % [facility] MPV 9.3 7.6 - 12.9 [facility] LABORATORY nRBC % Auto 0.0 % [facility] LABORATORY nRBC Abs Auto 0.000 0.000 - [facility] 0.000 [facility] x10(3)/[facility] LABORATORY Specimen Anatomical Collection Method Collection Time Receive d Time (Source) Location / / Volume Laterality Blood specimen 01/11/2018 5:17 AM 018 6:05 (specimen) EDT AM EDT Resulting Agency Comment Spec In Lab Sylvia Olvera MD HEMATOLOGY ORDERABLES Performing Organization Address City/State/[place] [address] (ABNORMAL) Urinalysis Microscopic Exam (01/11/2018 12:38 AM EDT) Patholo gist Method Time Signature RBC UA 2 0 - 4 [facility] /HPF [facility]ORY WBC UA 0 0 - 5 [facility] /HPF [facility]ORY Bacteria UA Rare (A) None /HPF [facility] LABORATORY Squam Epith 2 <=4 /HPF [facility] CaOx Ltea UA Occasional (A) None /HPF [facility] LABOR[facility]ORY Specimen Anatomical Collection Method Collection Time Receive d Time (Source) Location / / Volume Laterality Urine specimen 01/11/2018 12:38 8 1:14 (specimen) AM EDT AM EDT Resulting Agency Comment Spec In Lab Dinora Estevez MD URINE ORDERABLES Performing Organization Address City/State/ZIP Code Phon e Number [address] Urine Hold (01/11/2018 12:38 AM EDT) P athologist Signature Urine Hold Sample in [facility]. [facility] Specimen Anatomical Collection Method Collection Time Receive d Time (Source) Location / / Volume Laterality Urine specimen Urine / Unknown 01/11/2018 12:38 2017 1:15 (specimen) AM EDT AM EDT Dinora Estevez MD URINE ORDERABLES Performing Organization Address City/[facility]/[place]IP [place] [address] (ABNORMAL) Urinalysis with reflex Culture (01/11/2018 12:38 AM EDT) [facility] Method Time Signature Glucose UA Negative Negative [facility] mg/dL [facility] Protein UA Negative Negative [facility] mg/dL [facility] Bilirubin UA Negative Negative [facility] mg/dL [facility] Comment: Clinical correlation required for positi ve Urine Bilirubin results as false positive may occur with some drugs and d rug related products. If a false positive is suspected a serum total bili solis should be considered if clinically indicated. Urobilinogen UA Normal Normal mg/dL [facility] pH UA 5.0 5.0 - 8.0 [facility] Blood UA Small (A) Negative mg/dL [facility] Ketones UA >=80 (Critical) Negative mg/dL [facility] Comment: Urinalysis result NOT critical without a combination of Glucose greater than or equal to 500mg/dl AND Ketones greater th an or equal to 80mg/dl. Nitrite UA Negative Negative [facility] Leukocytes UA Negative Negative [facility] LABOR[facility]ORY Appearance UA Clear Clear [facility] Spec [place] UA 1.026 1.002 - 1.030 [facility] Color UA Yellow Yellow [facility] Culture Reflexed No [facility] Specimen Anatomical Collection Method Collection Time Receive d Time (Source) Location / / Volume Laterality Urine specimen 01/11/2018 12:38 8 1:14 (specimen) AM EDT AM EDT Resulting Agency Comment Spec In Lab Sylvia Olvera MD URINE ORDERABLES Performing Organization Address City/[facility]/[place]IP [place] [address] (ABNORMAL) Request For 2nd [...] Signature Lactate WB 0.6 0.5 - 2.2 [facility] mmol/L [facility] Specimen Anatomical Collection Method Collection Time Receive d Time (Source) Location / / Volume Laterality Blood specimen 01/10/2018 11:57 8 (specimen) PM EDT 11:57 PM EDT Sylvia Olvera MD CHEMISTRY ORDERABLES Performing Organization Address City/State/ZIP Code Phon e Number [address] ABORH Recheck Status (01/10/2018 11:47 PM EDT) [facility] Method Time Signature ABORH Recheck Order Placed [facility] LABORATORY ABORH Type Complete [facility] LABORATORY Specimen Anatomical Collection Method Collection Time Receive d Time (Source) Location / / Volume Laterality Blood specimen 01/10/2018 11:47 8 (specimen) PM EDT 12:01 AM EDT Resulting Agency Comment Spec In Lab Dinora Estevez MD BLOOD BANK ORDERABLES Performing Organization Address City/State/ZIP Code Phon e Number [address] Gold Tube HOLD (01/10/2018 11:47 PM EDT) athologist Signature Gold Hold Sample in [facility]. [facility] Specimen Anatomical Collection Method Collection Time Receive d Time (Source) Location / / Volume Laterality Blood specimen Venous Draw / 01/10/2018 11:47 01/12/20 18 (specimen) Unknown PM EDT 12:01 AM EDT Dinora Estevez MD CHEMISTRY ORDERABLES Performing Organization Address City/State/ZIP Code Phon e Number [address] Differential, Automated (01/10/2018 11:47 PM EDT) P athologist Signature Neutrophils % 55.6 % [facility] Neutr Abs (ANC) 4.02 1.70 - [facility] 6.10 [facility] x10(3)/[facility] LABORATORY Lymphocytes % 33.1 % [facility] Lymphocytes Abs 2.4 0.9 - [address].2 [facility] x10(3)/[facility] LABORATORY Monocytes % 7.7 % [facility] Monocyte Abs 0.6 0.3 - 0.9 [facility] x10(3)[facility] LABORATORY Eosinophils % 3.2 % [facility] Eosinophils Abs 0.2 0.0 - 0.4 [facility] x10(3)/[facility] LABORATORY Basophils % 0.3 % [facility] Basophils Abs 0.0 0.0 - [address].1 [facility] x10(3)/[facility] LABORATORY Immature Gran % 0.10 % [facility] Comment: Immature granulocytes(IG's)percentage an d absolute count will include metamyelocytes, myelocytes, and promyelo cytes. Blood smears from CBCs yielding IG's will be scanned manually for concor dance. If this scan disagrees with the automated IG or if promyelocytes are not ed, a manual differential will be performed. Karla Gran Abs 0.01 0.00 - 0.04 x10(3)/[facility] Specimen (Source) Anatomical Collection Method Collection Time Re ceived Time Location / / Volume Laterality Blood specimen 01/10/2018 11:47 8 (specimen) PM EDT Resulting Agency Comment Spec In Lab Dinora Estevez MD HEMATOLOGY ORDERABLES Performing Organization Address City/State/ZIP Code Phon e Number [address] (ABNORMAL) Hemogram (01/10/2018 11:47 PM EDT) [facility] Time Signature WBC 7.2 4.0 - 9.5 [facility] x10(3)/[facility] LABORATORY RBC 2.96 (L) 4.00 - [facility] [place] 5.21 [facility] x10(6)/[facility] LABORATORY Hemoglobin 9.0 (L) 11.7 - [facility] 15.5 gm/dL [facility] Hematocrit 28.4 (L) 35.7 - [facility] 45.8 % [facility] MCV 95.9 (H) 82.6 - [facility] 94.4 [facility] LABORATORY MCH 30.4 27.1 - [facility] 32.0 pg [facility] MCHC 31.7 31.7 - [facility] 35.[facility] gm/dL [facility] Platelets 289 145 - 357 [facility] x10(3)/[facility] LABORATORY RDWSD 48.3 (H) 37.0 - [facility] 46.0 [facility] LABORATORY RDWCV 13.5 11.5 - [facility] [place] 14.1 % [facility] MPV 9.2 7.6 - 12.9 [facility] LABORATORY nRBC % Auto 0.0 % [facility] nRBC Abs Auto 0.000 0.000 - [facility] 0.000 [facility] x10(3)/[facility] LABORATORY Specimen (Source) Anatomical Collection Method Collection Time Re ceived Time Location / / Volume Laterality Blood specimen 01/10/2018 11:47 8 (specimen) PM EDT Resulting Agency Comment Spec In Lab Dinora Estevez MD HEMATOLOGY ORDERABLES Performing Organization Address City/State/[place] [address] Antibody screen (01/10/2018 11:47 PM EDT) Patholo gist Method Time Signature Ab Screen Negative [facility] LABORATORY Expires at 01/13/2018 MARY BETH MELGAR [id number] on: [facility] Specimen Anatomical Collection Method Collection Time Receive d Time (Source) Location / / Volume Laterality Blood specimen 01/10/2018 11:47 8 (specimen) PM EDT 12:01 AM EDT Resulting Agency Comment Spec In Lab Dinora Estevez MD BLOOD BANK ORDERABLES Performing Organization Address City/State/[place] [address] ABO/Rh Typing (01/10/2018 11:47 PM EDT) athologist Signature ABORh Type A Neg [facility] Specimen Anatomical Collection Method Collection Time Receive d Time (Source) Location / / Volume Laterality Blood specimen 01/10/2018 11:47 8 (specimen) PM EDT 12:01 AM EDT Resulting Agency Comment Spec In Lab Dinora Estevez MD BLOOD BANK ORDERABLES Performing Organization Address City/[facility]/[place]IP [place] [address] Troponin T (01/10/2018 11:47 PM EDT) athologist Signature Troponin-T <0.01 0.00 - 0.00 [facility] ng/mL [facility] Comment: The 99th percentile for Troponin T is le ss than 0.01 ng/mL, any detectable cTnT concentration using this assay should be considered elevated. According to the third universal definit ion of myocardial infarction the following criteria with a clinical prese ntation consistent with acute myocardial ischemia meets the diagnosis for a myocardial infarction ([place]). Detection of a rise and/or fall of [...] additional sample may be indicated. Reference: Third [place] Definition of Myocardial Infarction. Journal of the [place] [employer] 2012;60:1581-98 Specimen (Source) Anatomical Collection Method Collection Time Re ceived Time Location / / Volume Laterality Blood specimen 01/10/2018 11:47 8 (specimen) PM EDT Resulting Agency Comment Spec In Lab Sylvia Olvera MD CHEMISTRY ORDERABLES Performing Organization Address [facility] [place] [address] APTT (01/10/2018 11:47 PM EDT) athologist Signature PTT 28 25 - 37 sec [facility] Comment: The PTT is [...] Olvera MD HEMATOLOGY ORDERABLES Performing Organization Address City/[facility] [place] [address] Prothrombin Time (01/10/2018 11:47 PM EDT) P athologist Signature PT 11.8 9.4 - 12.5 [facility] LABORATORY INR 1.1 [facility] Comment: An INR <2.0 [...] Organization Address City/State/[place] [address] Hepatic Function Panel (01/10/2018 11:47 PM EDT) athologist Signature Total Protein 6.2 6.1 - 8.0 [facility] [place] gm/dL [facility] Albumin 4.0 3.2 - 5.2 [facility] [place] gm/dL [facility] AST 11 0 - 30 [facility] [place] unit/L [facility] ALT 10 0 - 30 [facility] [place] unit/L [facility] Alk Phos 59 40 - 104 [facility] [place] unit/L [facility] Total 0.4 0.2 - 1.3 [facility] [place] Bilirubin mg/dL [facility] Bili, Direct 0.1 0.0 - 0.3 [facility] [place] mg/dL [facility] Specimen (Source) Anatomical Collection Method Collection Time Re ceived Time Location / / Volume Laterality Blood specimen 01/10/2018 11:47 8 (specimen) PM EDT Resulting Agency Comment Spec In Lab Sylvia Olvera MD CHEMISTRY ORDERABLES Performing Organization Address City/[facility]/[place]IP [place] [address] (ABNORMAL) Basic Metabolic Panel (non-fasting) (01/10/2018 11:47 PM EDT) athologist [facility] Glucose Lvl 82 65 - 199 [facility] mg/dL [facility] Comment: Diabetes: >=200 mg/dL plus symp toms BUN 17 8 - 18 mg/dL [facility] Creatinine 0.67 (L) 0.70 - 1.20 mg/dL [facility] Sodium 142 135 - 145 mmol/L [facility] Potassium 4.0 3.5 - 5.0 mmol/L [facility] Comment: Please note: ??Patients with WBC >100,00 0 may have falsely elevated Potassium levels. ??For accurate Potassium quantif ication in these patients send serum separator tube (gold top) for subsequent determinations. ??Contact the Clinical Chemistry Laboratory if there are any qu estions. Chloride 104 98 - 107 mmol/L [facility] CO2 25 22 - 31 mmol/L [facility] Anion Gap 13 5 - 15 mmol/L [facility] Calcium 8.0 (L) 8.5 - 10.5 mg/dL [facility] Estimated GFR 88 >=60 mL/min/1.73 m?? [facility] Comment: The eGFR was calculated using the CKD-EP I equation. As with all creatinine based estimates of kidney function, eGFR values calculated with the CKD-EPI equation are not accurate in patients wi th acute kidney failure, extremes of body mass or the acutely ill. http://Tapvalue/[facility] eGFR 102 >=60 mL/min/1.73 m?? [facility] Comment: The eGFR was calculated using the CKD-EP I equation. As with all creatinine based estimates of kidney function, eGFR values calculated with the CKD-EPI equation are not accurate in patients wi th acute kidney failure, extremes of body mass or the acutely ill. http://Tapvalue/[facility]MONDnkf Specimen (Source) Anatomical Collection Method Collection Time Re ceived Time Location / / Volume Laterality Blood specimen 01/10/2018 11:47 8 (specimen) PM EDT Resulting Agency Comment Spec In Lab Sylvia Olvera MD CHEMISTRY ORDERABLES Performing Organization Address City/State/ZIP Code Phon e Number [place] [id number] HOSPITAL LAB[address]ATORY Drive XR Chest PA or [...] EKG 12 Lead (01/10/2018 10:43 PM EDT) [facility] gist Method Time Signature Ventricular rate 89 BPM MUSE SYSTEM Atrial Rate 89 BPM MUSE SYSTEM P-R Interval 188 ms MUSE SYSTEM QRS Duration 78 ms MUSE SYSTEM Q-T Interval 374 ms MUSE SYSTEM QTC Calculated 455 ms MUSE SYSTEM (Bezet) Calculated P [place] 66 degrees MUSE SYSTEM Calculated R [place] -27 degrees MUSE SYSTEM Calculated T [place] 35 degrees MUSE SYSTEM INTERPRETATION Sinus rhythm [...] Olvera MD ECG ORDERABLES Performing Organization Address City/[facility]/ZIP [facility] Phon e Number MUSE SYSTEM Film Library- Storage Only DX Abdomen (01/10/2018 12:05 AM EDT) Specimen (Source) Anatomical Location Collection Method / Collectio n Time Received Time / Laterality Volume Narrative [facility] - 01/11/2018 12:14 AM EDT This exam is for storage only and is aut o-finalizing. Sylvia Olvera MD IMG FILM LIBRARY ORDERABLES Performing Organization Address [facility] Phon e Number [place], [place] Film Library- Storage Only CT Abdomen & Pelvis (01/10/2018 12:00 AM EDT) Specimen (Source) Anatomical Location Collection Method / Collectio n Time Received Time / Laterality Volume [facility] RAD - 01/11/2018 12:10 AM EDT This exam is for storage only and is aut o-finalizing. Sylvia Olvera MD IMG FILM LIBRARY ORDERABLES Performing Organization Address [facility] Phon e Number RAD [place], [place] Film Library- Storage Only DX Chest (01/09/2018 12:05 AM EDT) Specimen (Source) Anatomical Location Collection Method / Collectio n Time Received Time / Laterality Volume [facility] - 01/11/2018 12:14 AM EDT This exam is for storage only and is aut o-finalizing. Sylvia Olvera MD IMG FILM LIBRARY ORDERABLES Performing Organization Address [facility] Phon e Number [place], [place] Film Library- Storage Only DX Abdomen (01/09/2018 12:00 AM EDT) Specimen (Source) Anatomical Location Collection Method / Collectio n Time Received Time / Laterality Volume Narrative RAD - 01/11/2018 12:13 AM EDT This exam is for storage only and is aut o-finalizing. Sylvia Olvera MD IMG FILM LIBRARY ORDERABLES Performing Organization Address City/State/ZIP Code Phon e Number GIGI GIGI [place], [place] documented in this encounter Visit Diagnoses [...] 0900, Last dose on Sat01/22/18 at 2100, Routine, Indication for (Active or Suspected): GI/Intra-abdominal budesonide-formoterol (SYMBICORT) Given 01/13/2018 8:38 AM EDT [...] 0837 (Given - Provider: Rhina George RN) 150 mg, Oral, DAILY, First dose on [...] Discontinued, Routine levothyroxine (SYNTHROID) tablet 75 mcg 0816 (Given - Provider: Patricia Mir RN) 1002 [...] Mir RN)1745 (New Bag - Provider: Patricia Mir RN)2145 (Stopped - Provider: Dennise Moffett, DELROY) 0136 (New Bag - Provider: Dennise Moffett RN)0536 (Stopped - Provider: Dennise Moffett RN)1002 (New Bag - Provider: Rachell Prajapati, DELROY)1402 (Stopped - Provider: Rachell Prajapati, DELROY)1820 (New Bag - Provider: Rachell Prajapati RN) 0125 (New Bag - Provider: Dennise Moffett [...] (New Bag - Provider: Molly Mari i, DELROY)0546 (Stopped - Provider: Myriam Murcia RN) 4.5 [...] Moffett RN) 1002 (Given - Provider: Rachell Prajapati, DELROY)205 (Given - Provider: Dennise Moffett RN) 0838 (Given - Provider: Rhina George RN) 5 mL, Intravenous, 2 TIMES DAILY, First dose on 01/11/18 at 0900, Until Discontinued, Routine sodium chloride 0.9% 1,000 mL IV bolus (COMPLETED) 011 7 (New Bag - Provider: Molly Coates, DELROY)0230 (Stopped - Provider: Molly Coates, DELROY) at [...] Patricia Mir RN)1258 (Given - Provider: Patricia Mir RN)1742 (Given - Provider: Patricia Mir RN) 0141 (Given - Provider: Dennise Moffett , DELORY)0651 (Given - Provider: Dennise Moffett, DELROY) 650 [...] ondansetron (ZOFRAN) injection 4-8 mg(Linked Group 1) 1928 (See Alternative - Provider: Dennise Moffett, DELROY) 4-8 mg, Intravenous, EVERY 8 HOURS PRN, Starting 01/11/18 at 0455, Until 01/13/18 at 1459, Nausea, Start with 4mg and if ineffective in 30 minutes, give an additional 4mg If multiple antiemetics are ordered, give ondansetron first. ondansetron (ZOFRAN) tablet 4-8 mg(Linked Group 1) 192 8 (Given - Provider: Dennise Moffett RN) 4-8 mg, Oral, EVERY 8 HOURS PRN, Startin g 01/11/18 at 0455, Until Sat01/13/18 at 1459, Nausea, Vomiting, If multiple antiemetics [...] first.
documented in this encounter Care Teams Platen Press Operator Apprentice Relationship Specialty Start Date End Date Leeanne Schultz MD PCP - General 10/28/13 [address] [place] [address] documented as of this encounter
--- OUTSIDE RECORDS SUMMARY | 2022-03-09 01:12 | XMS_ITS | Encounter Summary ---
:1945 Author Organization [facility] [place] [address] Care Team Providers Name Role Phone Leeanne Schultz MD Primary Care Provider Reason for Visit Reason Onset Date Comments Other 05/02/2015 Telephone Encounter Details Date Type Department Care Team Description 05/02/2015 [facility] ([facility] [place] PETER [address] [facility] [place] [address] [facility] [phone] [place], [place] [address] (Wo rk) Social History Tobacco [...] Attempted to reach pharmacy phone number is [phone] and the patient has already picked up the script. - no prior auth needed. documented in this encounter Plan of Treatment Upcoming Encounters Date Type Specialty Care Team Description 03/14/2022 Office Visit Dermatology [place] Edgar MD [facility] [address] DIANA CANAS-DERMAT [place], [place] [address] (Wo rk) documented as of this encounter Visit Diagnoses Not on filedocumented in this encounter Care Teams Warehouse Assistant Relationship Specialty Start Date End Date Leeanne Schultz MD PCP - General 10/28/13 [address] [place] [address] documented as of this encounter
--- OUTSIDE RECORDS SUMMARY | 2022-03-09 01:12 | XMS_ITS | Encounter Summary ---
:1945 Author Organization [facility] [place] [address] Care Team Providers Name Role Phone Leeanne Schultz MD Primary Care Provider Reason for Visit Reason Onset Date Comments Medication Refill 04/26/2015 Encounter Details Date Type Department Care Team Description 04/26/2015 Refill Dermatology at [facility] Ni Zamudio MD Skin lesion [address] [facility] [place] [id number] [facility] [phone] [place], [place] [address] (Wo rk) Social History Tobacco [...] MD [facility] [address] [place], [place] [address] (Wo rk) documented as of this encounter Visit Diagnoses Diagnosis Skin lesion Unspecified disorder of skin and subcuta neous tissue documented in this encounter Care Teams Brickmason Supervisor Relationship Specialty Start Date End Date Berrian, Leeanne M, MD PCP - General 10/28/13 [address] [place] [address] documented as of this encounter
--- OUTSIDE RECORDS SUMMARY | 2022-03-09 01:12 | XMS_ITS | Encounter Summary ---
:1945 Author Organization [facility] [place] [address] Care Team Providers Name Role Phone Leeanne Schultz MD Primary Care Provider Reason for Visit Reason Comments Procedure Encounter Details Date Type Department Care Team Description 04/24/2018 Office Visit Dermatology at [place] Donohue MD [facility] [address] [place] [address] Veronica Souza PA [facility] [address] [place] [address] carcinoma in situ [address] (SCCIS) [place] [address] Social History Tobacco Use Types Packs/Day [...] or concerns, please call the office at [phone]. If it is after 5PM, or a holiday or weekend, please call [phone] and ask for the Vice President Of Development on-call. documented in this encounter Progress Notes [...] back. ? August 2007, MIS treated in [place] ? Right lateral thigh. 6. 10/2006 Right [...] (including discomfort management) and wound care reviewed. [facility] [id number] RTC: As scheduled with Dr. 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
--- OUTSIDE RECORDS SUMMARY | 2022-03-09 01:12 | XMS_ITS | Encounter Summary ---
:1945 Author Organization [facility] [place] [address] Care Team Providers Name Role Phone Leeanne Schultz MD Primary Care Provider Encounter Details Date Type Department Care Team Description 12/22/2019 Telephone Urology at [place] Megan Plaza, [facility] Kwasi fernán[place] [address] [facility] [phone] UROLOGY DEPT. [place], [place] [address] (Wo rk) Social History Tobacco [...] Visit Dermatology Edgar, [place] J , MD [facility] [address] DIANA [place], [place] [address] (Wo rk) documented as of this encounter Visit Diagnoses Not on filedocumented in this encounter Care Teams Pharmacy Technician Inpatient Relationship Specialty Start Date End Date Leeanne Schultz MD PCP - General 10/28/13 [address] [place] [address] documented as of this encounter
--- OUTSIDE RECORDS SUMMARY | 2022-03-09 01:12 | XMS_ITS | Encounter Summary ---
:1945 Author Organization [facility] [place] [address] Care Team Providers Name Role Phone Leeanne Schultz MD Primary Care Provider Reason for Visit Reason Comments Skin Lesion Encounter Details Date Type Department Care Team Description 09/10/2017 [facility], Cm Osborne (actinic Road III, keratosis) [address] [place] [address] [facility]-DER[facility] [place], [place] [address] Social History Tobacco Use Types [...] weeks ago when they got back from [place]. It is asymptomatic. She is having knee [...] encounter. Cm Diop MD Section of Dermatology [facility] documented in this encounter Plan of Treatment Upcoming Encounters Date Type Specialty Care Team Description 03/14/2022 Office Visit Dermatology [place] Edgar MD [facility] DR DIANA CANAS-DERMAT [place], [place] [address] (Wo rk) documented as of this encounter Visit Diagnoses Diagnosis AK (actinic keratosis) Actinic keratosis documented in this encounter Care Teams Energy Conservation Engineer Relationship Specialty Start Date End Date Leeanne Schultz MD PCP - General 10/28/13 [address] [place] [address] documented as of this encounter
--- OUTSIDE RECORDS SUMMARY | 2022-03-09 01:12 | XMS_ITS | Encounter Summary ---
:1945 Author Organization [facility] [place] [address] Care Team Providers Name Role Phone Leeanne Schultz MD Primary Care Provider Encounter Details Date Type Department Care Team Description 01/11/2018 Hospital Encounter [place] [address] Social History Tobacco Use Types Packs/Day [...] Office Visit Dermatology [place] Edgar MD [facility] [address] D[address]NA CANAS-DERMAT [place], [place] [address] (Wo rk) documented as of [...] filedocumented in this encounter Care Teams Director Student Union Relationship Specialty Start Date End Date Leeanne Schultz MD PCP - General 10/28/13 [address] [place] [address] documented as of this encounter
--- OUTSIDE RECORDS SUMMARY | 2022-03-09 01:12 | XMS_ITS | Encounter Summary ---
:1945 Author Organization [facility] [place] [address] Care Team Providers Name Role Phone Leeanne Schultz MD Primary Care Provider Encounter Details Date Type Department Care Team Description 05/13/2020 Telephone Gastroenterology at [facility] [place] [address] Social History Tobacco Use Types Packs/Day [...] [place] Edgar MD [facility] ER DR DIANA CANAS-DERMAT [place], [place] [address] (Wo rk) documented as of this encounter Visit Diagnoses Not on filedocumented in this encounter Care Teams Snowboarding Instructor Relationship Specialty Start Date End Date Leeanne Schultz MD PCP - General 10/28/13 [address] [place] [address] documented as of this encounter
--- OUTSIDE RECORDS SUMMARY | 2022-03-09 01:12 | XMS_ITS | Encounter Summary ---
:1945 Author Organization [facility] [place] [address] Care Team Providers Name Role Phone Leeanne Schultz MD Primary Care Provider Reason for Visit Reason Comments Skin Check Encounter Details Date Type Department Care Team Description 01/03/2017 Office Visit Dermatology at [facility], Cm ernst benign nevi; Geneva FONSECA MD Seborrheic keratosis; [address] [place] [facility] History of melanoma in situ; [place] [address] [address] History of melanoma; [phone] [facility] History of basa l cell carcinoma; RD-DERMATOLGY Neoplasm of uncertain behavior of skin; [place], [place] [address] Lesion of skin of face Social [...] or concerns, please call the office at [phone]. If it is after 5PM, or a holiday or weekend, please call [phone] and ask for the Tire Sorter on-call. documented in this encounter Progress Notes [...] to schedule appointment when she returns from [place]. Instructed to call if problems arise. Keiry Chirinos, Clinical Scribe - I am documenting this encounter acting as the scribe for and in the presence of Dr. Kaminski.: MÓINCA DOZIER LPN I performed the above scribed service and agree with the accuracy of the documentation in this encounter. Cm Kaminski MD Section of Dermatology [facility] documented in this encounter Plan of Treatment Upcoming Encounters Date Type Specialty Care Team Description 03/14/2022 Office Visit Dermatology [place] Edgar MD [facility] [address] DIANA CANAS-DERMAT [place] [address] (Wo rk) documented as of this encounter [...] Component Value Ref Test Analysis Performed At [facility] Method Time Signature Surgical [id number] ? Location: [facility] Report The signing pathologist has (i) [...] MD PATHOLOGY/CYTOLOGY ORDERABLE S Performing Organization Address City/[facility]/ZIP [place] [address] Specimen to Pathology (NON-OR) (01/03/2017 9:42 AM EDT) Specimen Anatomical Collection Method Collection Time Receive d Time (Source) Location / / Volume Laterality AP Specimen 01/03/2017 9:42 AM 7 1:19 EDT PM EDT Narrative [facility] - 01/03/2017 1:19 PM EDT Specimen requisition ordered. ??Separate Pathology report to follow Resulting Agency Comment Spec In Lab Cm Kaminski III, MD PATHOLOGY/CYTOLOGY ORDERABLE S Performing Organization Address City/[facility]/ZIP [place] [address] documented in this encounter [...] tissue documented in this encounter Care Teams Alodize Machine Helper Relationship Specialty Start Date End Date Leeanne Schultz MD PCP - General 10/28/13 [address] [place] [address] documented as of this encounter
--- OUTSIDE RECORDS SUMMARY | 2022-03-09 01:13 | XMS_ITS | Encounter Summary ---
:1945 Author Organization [facility] [address] Care Team Providers Name Role Phone Leeanne Schultz MD Primary Care Provider Reason for Visit Reason Comments Skin Lesion right forearm Encounter Details Date Type Department Care Team Description 08/19/2014 [facility] Bartolo Lipoma; Geneva Fisher MD Lentigo; [address] [facility] [place] [address] [facility]-DER[facility] [place], [place] [address] (Wo rk) Social History Tobacco [...] August 2007, she had MIS treated in [place] ? Right lateral thigh. 6. 10/2006 Right [...] encounter. Bartolo Rojas MD Resident in Dermatology [facility] Patient seen and evaluated with staff cafe manager: Cm Kaminski MD Section of Dermatology [facility] documented in this encounter Plan of Treatment Upcoming Encounters Date Type Specialty Care Team Description 03/14/2022 Office Visit Dermatology [place] Edgar MD [facility] [address] DIANA CANAS-DERMAT [place], [place] [address] (Wo rk) documented as of this encounter Visit Diagnoses Diagnosis Lipoma Lipoma of unspecified site Lentigo Other dyschromia Seborrheic keratosis Other seborrheic keratosis documented in this encounter Care Teams Package Handler Relationship Specialty Start Date End Date Leeanne Schultz MD PCP - General 10/28/13 [address] [place] [address] documented as of this encounter
--- OUTSIDE RECORDS SUMMARY | 2022-03-09 01:13 | XMS_ITS | Encounter Summary ---
:1945 Author Organization [facility] [place] [address] Care Team Providers Name Role Phone Mira Marino MD Primary Care Provider Reason for Visit Reason Comments Procedure Encounter Details Date Type Department Care Team Description 10/15/2012 Procedure visit Dermatology at [facility] Maritza Brito MD (Primary Dx) [address] [place] [address] [facility] [phone] RD-DERMATOLOGY [place] [address] Social History Tobacco Use Types Packs/Day Years [...] the hospital number and ask for the Paradichlorobenzene Tender operational communication chief. Doctor Maritza Mcdowell MD Nurse Sandrita documented [...] to have routine skin checks with her coil tier in [place]. Patient voiced understanding and agreement. All her questions were answered to her satisfaction. Encouraged to call with any questions or concerns. Maritza Mcdowell MD Resident in Dermatology [facility] Cm Kaminski III, MD - 10/20/2012 5:44 PM EDT I was the supervising physician working with dermatology resident Dr. Maritza Alvarez in the dermatology clinic during this patient visit. The level of Resident supervision for this patient visit was indirect supervision with direct supervision immediately available. (definition: [facility] Policy Statement on Graduate Medical Education, [...] anterior shoulder which was biopsied by a coil tier in [place] on 07/02/12 (see pathology report below). Pt [...] benign lesion Resident Surgeon: Maritza Mcdowell MD Road Worker: Sandrita Kumari ?? Diagnosis: Moderately dysplastic compound [...] days 2. RTC as scheduled with Primary Paradichlorobenzene Tender. Maritza Mcdowell MD Resident in Dermatology [facility] Patient was discussed with the Supervising Physician: Cm Kaminski MD Section of Dermatology [facility] Level of Resident Supervision: Indirect supervision with [...] Visit Dermatology [place] Edgar MD [facility] [address] DIANA CANAS-DERMAT [place], [place] [address] (Wo rk) documented as of [...] 10/15/2012 AM EDT 10:49 AM EDT Narrative [facility] - 10/15/2012 10:49 AM EDT Specimen requisition ordered. ??Separate Pathology report to follow Cm Kaminski III, MD PATHOLOGY/CYTOLOGY ORDERABLE S Performing Organization Address City/State/[place] [address] [facility] Surgical Pathology Report (10/15/2012 10:14 AM EDT) Component Value Ref Test Analysis Performed At [facility] gist Range Method Time Signature Surgical [facility] Pathology ? [facility] Report ? Provider: ?? SAPNA MCDOWELL, ?? Pt. Name: ?? LINDA R, KAJAL R ?MARITZA BRITO ? Acc #: ?[id number] ? Pt. ? Col Date: ?? 3 [...] shoulder from 07/02/2102, ? ([facility] ??#[id number]) was received for ? comparison. ? The [...] shoulder, excision (1) ? Clinical History: ? [facility] ? Provider: ?? SAPNA MCDOWELL, ?? Pt. Name: ?? LINDA R, KAJAL R ?MARITZA BRITO ? Acc #: ?[id number] ? Pt. ? Col Date: ?? 3 [...] Address City/State/ZIP [place] [address] [facility] documented in this encounter Visit Diagnoses Diagnosis Dysplastic nevus - Primary Benign neoplasm of skin, site unspecifie d documented in this encounter Care Teams Aircraft Fueler Relationship Specialty Start Date End Date Mira Marino MD PCP - General 04/18/10 10/27/13 [facility] [address] [place] [address] [place] [address] documented as of this encounter
--- OUTSIDE RECORDS SUMMARY | 2022-03-09 01:13 | XMS_ITS | Encounter Summary ---
:1945 Author Organization [facility] [place] [address] Care Team Providers Name Role Phone Mira Marino MD Primary Care Provider Encounter Details Date Type Department Care Team Description 10/13/2013 Orders Only Orthopaedics at [facility] Donnell Leiva MD Left foot pain [facility] (Pr imary Dx) [place] [address] ORTHOPAEDIC [phone] SURGERY [place] [address] Social History Tobacco Use Types Packs/Day Years Used Date Former Smoker Sex Assigned at Date Recorded Female 10/02/2020 6:58 PM EDT documented as of this encounter Plan of Treatment Upcoming Encounters Date Type Specialty Care Team Description 03/14/2022 Office Visit Dermatology [place] Edgar MD [facility] ER [address] DIANA CANSA-DERMAT [place], [place] [address] (Wo rk) documented as of this encounter Results XR foot minimum 3 [...] encounter Visit Diagnoses Diagnosis Left foot pain - Primary Pain in limb Left foot pain Pain in limb documented in this encounter Care Teams Industrial Controller Relationship Specialty Start Date End Date Mira Marino MD PCP - General 04/18/10 10/27/13 [facility] [address] [place] [address] [place] [address] documented as of this encounter
--- OUTSIDE RECORDS SUMMARY | 2022-03-09 01:13 | XMS_ITS | Encounter Summary ---
:1945 [place] [address] Care Team Providers Name Role Phone Mira Marino MD Primary Care Provider Reason for Visit Reason Comments Skin Check Encounter Details Date Type Department Care Team Description 04/07/2012 Follow-Up Dermatology at [facility] Grover Zamudio MD Neoplasm of uncertain behavior, site uns pecified (Primary Dx); [facility] Actinic keratosis [address] [place] [address] [facility] [phone] RD-DERMATOLOGY [place], [place] [address] (Wo rk) Social History Tobacco [...] August 2007, she had MIS treated in [place] ? Right [...] changes: Ni Zamudio MD Section of Dermatology [facility] documented in this encounter Plan of Treatment Upcoming Encounters Date Type Specialty Care Team Description 03/14/2022 Office Visit Dermatology [place] Edgar MD [facility] DR DIANA CANAS-DERMAT [place], [place] [address] (Wo rk) documented as of [...] Component Value Ref Test Analysis Performed At [facility] gist Range Method Time Signature Surgical [facility] Pathology ? [facility] Report ? Provider: ?? NI ZAMUDIO ? Pt. Name: ?? HAJA CLARK, KAJAL R ? Acc #: ?[id number] ? Pt. ? Col Date: ?? 2 [...] cm, callahan. ? Sections/Processing: ??(T1) ??aje/SNS ? [facility] ? Provider: ?? NI ZAMUDIO ? Pt. Name: ?? HAJA CLARK, KAJAL Ureña ? Acc #: ?[id number] ? Pt. ? Col Date: ?? 2 [...] MD PATHOLOGY/CYTOLOGY ORDERABLE S Performing Organization Address City/[facility]/[place] [address] [employer] Specimen to Pathology (NON-OR) (04/07/2012 12:52 PM EST) Specimen Anatomical Collection Method Collection Time Receive d Time (Source) Location / / Volume Laterality AP Specimen 04/07/2012 12:52 04/07/2012 PM EST 12:52 PM EST Narrative [facility] - 04/07/2012 12:52 PM EST Specimen requisition ordered. ??Separate Pathology report to follow Ni Zamudio MD PATHOLOGY/CYTOLOGY ORDERABLE S Performing Organization Address City/[facility] [place] [address] [employer] documented in this encounter Visit Diagnoses Diagnosis Neoplasm of uncertain behavior, site uns pecified - Primary Actinic keratosis documented in this encounter Care Teams Automotive Internet Sales Manager Relationship Specialty Start Date End Date Mira Marino MD PCP - General 04/18/10 10/27/13 H[facility]PITALIST SERVICES [address] [place] [address] [place] [address] documented as of this encounter
--- OUTSIDE RECORDS SUMMARY | 2022-03-09 01:13 | XMS_ITS | Encounter Summary ---
:1945 Author Organization [facility] [place] [address] Care Team Providers Name Role Phone Leeanne Schultz MD Primary Care Provider Reason for Visit Reason Comments Other Encounter Details Date Type Department Care Team Description 07/06/2014 Telephone Dermatology at [facility] Ni Zamudio MD [address] [facility] [place] [place] [address] [facility]-DERMATOLOGY [phone] [place], [place] [address] (Wo rk) Social History Tobacco [...] [place] Edgar MD [facility] [address] DIA[address] CANAS-DERMAT [place], [place] [address] (Wo rk) documented as of this encounter Visit Diagnoses Not on filedocumented in this encounter Care Teams Heavy Equipment Sales Manager Relationship Specialty Start Date End Date Leeanne Schultz MD PCP - General 10/28/13 [address] [place] [address] documented as of this encounter
--- OUTSIDE RECORDS SUMMARY | 2022-03-09 01:13 | XMS_ITS | Encounter Summary ---
:1945 Author Organization [facility] [place] [address] Care Team Providers Name Role Phone Leeanne Schultz MD Primary Care Provider Reason for Visit Reason Onset Date Comments Pre Procedure Call 11/11/2014 Encounter Details Date Type Department Care Team Description 11/11/2014 Telephone Dermatology at [facility] Mica Patton LPN Pre Procedure Call [address] [place] [address] Social History Tobacco Use Types Packs/Day [...] [facility] DR DIANA CANAS-DERMAT [place], [place] [address] (Wo rk) documented as of this encounter Visit Diagnoses Not on filedocumented in this encounter Care Teams Hub Lead Relationship Specialty Start Date End Date Leeanne Schultz MD PCP - General 10/28/13 [address] [place] [address] documented as of this encounter
--- OUTSIDE RECORDS SUMMARY | 2022-03-09 01:13 | XMS_ITS | Encounter Summary ---
:1945 Author Organization [facility] [place] [address] Care Team Providers Name Role Phone Leeanne Schultz MD Primary Care Provider Encounter Details Date Type Department Care Team Description 01/24/2015 Orders Only Hematology and Oncol ogy at [facility] [place] [address] Social History Tobacco Use Types Packs/Day [...] 03/14/2022 Office Visit Dermatology [place] Edgar MD [facility] ER DR DIANA CANAS-DERMAT [place], [place] [address] (Wo rk) documented as of this encounter Visit Diagnoses Not on filedocumented in this encounter Care Teams Hosting Engineer Relationship Specialty Start Date End Date Leeanne Schultz MD PCP - General 10/28/13 [address] [place] [address] documented as of this encounter
--- OUTSIDE RECORDS SUMMARY | 2022-03-09 01:13 | XMS_ITS | Encounter Summary ---
:1945 Author Organization [facility] [place] [address] Care Team Providers Name Role Phone Leeanne Schultz MD Primary Care Provider Encounter Details Date Type Department Care Team Description 06/29/2014 Orders Only Pulmonology at [facility] Marlon Fernandes COPD ([facility] MD [place] obstructive pulmonary [facility] disease) [place] [address] PULMONARY MEDICI [place], [place] [address] Social History Tobacco Use Types [...] Edgar MD [facility] ER DR DIANA CANAS-DERMAT [place], [place] [address] (Wo rk) documented as of [...] classified documented in this encounter Care Teams Manager Rfid Relationship Specialty Start Date End Date Leeanne Schultz MD PCP - General 10/28/13 [address] [place] [address] documented as of this encounter
--- OUTSIDE RECORDS SUMMARY | 2022-03-09 01:13 | XMS_ITS | Encounter Summary ---
:1945 [place] [address] Care Team Providers Name Role Phone Leeanne Schultz MD Primary Care Provider Reason for Visit Reason Comments Suture / Staple Removal Encounter Details Date Type Department Care Team Description 07/30/2014 Ancillary Appointment Dermatology at [facility] Farzana Mckeon MD [facility] [address] [place] [address] [facility] [phone] RD-DERMATOLOGY [place], [place] [address] Social History Tobacco Use Types Packs/Day Years Used Date Former Smoker Smokeless Tobacco: Never Used Alcohol Use Standard Drinks/Week Comments Yes 7 (1 standard drink = 0.6 oz pure alcoho l) Sex Assigned at Date Recorded Female 10/02/2020 6:58 PM EDT documented as of this encounter Progress Notes Benita Figueroa LPN - 07/30/2014 9:38 AM EDT Patient presents for suture removal x 3. The wound is well healed without signs of infection. The sutures are removed. Wound care and activity instructions given. Return prn. Benita Figueroa LPN documented in this encounter Plan of Treatment Upcoming Encounters Date Type Specialty Care Team Description 03/14/2022 Office Visit Dermatology [place] Edgar MD [facility] ER DR DIANA CANAS-DERMAT [place], [place] [address] (Wo rk) documented as of this encounter Visit Diagnoses Not on filedocumented in this encounter Care Teams Laborer Golf Course Relationship Specialty Start Date End Date Leeanne Schultz MD PCP - General 10/28/13 [address] [place] [address] documented as of this encounter
--- OUTSIDE RECORDS SUMMARY | 2022-03-09 01:13 | XMS_ITS | Encounter Summary ---
:1945 Author Organization [facility] [place] [address] Care Team Providers Name Role Phone Leeanne Schultz MD Primary Care Provider Encounter Details Date Type Department Care Team Description 01/21/2015 Telephone Dermatology at [facility] Ni Zamudio MD [address] [place] [address] DIANA CANAS-DERMATOLOGY [phone] [place], [place] [address] (Wo rk) Social History Tobacco [...] Dermatology [place] Edgar MD [facility] [address] DIANA CANAS-DERMAT [place], [place] [address] (Wo rk) documented as of this encounter Visit Diagnoses Diagnosis Family history of melanoma Family history of other specified malign ant neoplasm documented in this encounter Care Teams Tying In Machine Operator Relationship Specialty Start Date End Date Leeanne Schultz MD PCP - General 10/28/13 [address] [place] [address] documented as of this encounter
--- OUTSIDE RECORDS SUMMARY | 2022-03-09 01:13 | XMS_ITS | Encounter Summary ---
:1945 [place] [address] Care Team Providers Name Role Phone Leeanne Schultz MD Primary Care Provider Reason for Visit Reason Comments Skin Check Encounter Details Date Type Department Care Team Description 10/28/2013 Follow-Up Dermatology at [facility] Lucas MD Scars (Primary Dx); [facility] Lentigines; [address] Personal history of malignant [place] [address] [facility] [phone] RD-DERMATOLOGY [place] [address] (Wo rk) Social History Tobacco Use Types [...] August 2007, she had MIS treated in [place] ? Right lateral thigh. 6. 10/2006 Right lower back, mild to moderate DN , Excised 7. She grew up in [place] with a [...] encounter. Ni Zamudio MD Section of Dermatology [facility] documented in this encounter Plan of Treatment Upcoming Encounters Date Type Specialty Care Team Description 03/14/2022 Office Visit Dermatology [place] Edgar MD [facility] DR DIANA MEDINA-DERMAT [place], [place] [address] (Wo rk) documented as of this encounter Visit Diagnoses Diagnosis Scars - Primary Scar condition and fibrosis of skin Lentigines Other dyschromia Personal history of malignant melanoma o f skin documented in this encounter Care Teams Optomechanical Technician Relationship Specialty Start Date End Date Leeanne Schultz MD PCP - General 10/28/13 [address] [place] [address] documented as of this encounter
--- OUTSIDE RECORDS SUMMARY | 2022-03-09 01:13 | XMS_ITS | Encounter Summary ---
:1945 Author Organization [facility] [place] [address] Care Team Providers Name Role Phone Mira Marino MD Primary Care Provider Encounter Details Date Type Department Care Team Description 10/07/2012 Orders Only Dermatology at [facility] [address] [place] [address] [facility] [phone] DIANA CANAS-DERMAT [place], [place] [address] Social History Tobacco Use Types Packs/Day Years Used Date Former Smoker Sex Assigned at Date Recorded Female 10/02/2020 6:58 PM EDT documented as of this encounter Plan of Treatment Upcoming Encounters Date Type Specialty Care Team Description 03/14/2022 Office Visit Dermatology [place] Edgar MD [facility] ER DR DIANA CANAS-DERMAT [place], [place] [address] (Wo rk) documented as of this encounter Visit Diagnoses Not on filedocumented in this encounter Care Teams Dehorner Relationship Specialty Start Date End Date Mira Marino MD PCP - General 04/18/10 10/27/13 HOSPITALIST SERVICES [address] [place] [address] [place] [address] documented as of this encounter
--- OUTSIDE RECORDS SUMMARY | 2022-03-09 01:13 | XMS_ITS | Encounter Summary ---
:1945 Author Organization [facility] [place] [address] Care Team Providers Name Role Phone Mira Marino MD Primary Care Provider Encounter Details Date Type Department Care Team Description 09/07/2013 Orders Only Orthopaedics at [facility] Donnell Leiva [place] [facility] [place] [address] ORTHOPAEDIC SURGERY [phone] [place], [place] [address] (Wo rk) Social History Tobacco Use Types Packs/Day Years Used Date Former Smoker Sex Assigned at Date Recorded Female 10/02/2020 6:58 PM EDT documented as of this encounter Plan of Treatment Upcoming Encounters Date Type Specialty Care Team Description 03/14/2022 Office Visit Dermatology [place] Edgar MD [facility] ER DR DIANA CANAS-DERMAT [place], [place] [address] (Wo rk) documented as [...] in this encounter Care Teams Director Of Teenage Activities Relationship Specialty Start Date End Date Mira Marino MD PCP - General 04/18/10 10/27/13 HOSPITALIST SERVICES [address] [place] [address] [place] [address] documented as of this encounter
--- OUTSIDE RECORDS SUMMARY | 2022-03-09 01:13 | XMS_ITS | Encounter Summary ---
:1945 Author Organization [facility] [place] [address] Care Team Providers Name Role Phone Leeanne Schultz MD Primary Care Provider Reason for Visit Reason Comments Advice Only Encounter Details Date Type Department Care Team Description 07/14/2014 Office Visit Dermatology at [facility], DR BALL Fat deposits [address] [place] [address] Social History Tobacco Use Types Packs/Day Years [...] Dermatology [place] Edgar MD [facility] DR DIANA CANAS-DERMAT [place], [place] [address] (Wo rk) documented as of this encounter Visit Diagnoses Diagnosis Fat deposits Localized adiposity documented in this encounter Care Teams Tubular Riveter Relationship Specialty Start Date End Date Leeanne Schultz MD PCP - General 10/28/13 [address] [place] [address] documented as of this encounter
--- OUTSIDE RECORDS SUMMARY | 2022-03-09 01:13 | XMS_ITS | Encounter Summary ---
:1945 Author Organization [facility] Address [place] [id number] Care Team Providers Name Role Phone Mira Marino MD Primary Care Provider Reason for Visit Reason Comments Skin Lesion Encounter Details Date Type Department Care Team Description 09/13/2010 Follow-Up Dermatology Ni Zamudio MD Personal history of malignant melanoma o f skin (Primary Dx); [facility] Ski n lesion; Drive DR Neoplasm of uncertain behavior of skin [address] [phone] RD-DERMATOLOGY [place] [address] (Wo rk) Social History Tobacco Use Types [...] August 2007, she had MIS treated in [place]. 6. 10/2006 Right lower back, mild to [...] changes: Ni Zamudio MD Section of Dermatology [facility] documented in this encounter Plan of Treatment Upcoming Encounters Date Type Specialty Care Team Description 03/14/2022 Office Visit Dermatology [place] Edgar MD [facility] DR DIANA CANAS-DERMAT [place], [place] [address] (Wo rk) Scheduled Orders Name [...] Component Value Ref Test Analysis Performed At [facility] gist Range Method Time Signature Surgical CERNER Pathology ? [facility] Report ? Provider: ?? NI ZAMUDIO ? Pt. Name: ?? HAJA ER, KAJAL R ? Acc #: ?[id number] ? Pt. ? Col Date: ?? 1 [...] Address City/State/ZIP [place] [address] HOSPITAL LABORATORY [facility] documented in this encounter Visit Diagnoses Diagnosis Personal history of malignant melanoma o f skin - Primary Skin lesion Unspecified disorder of skin and subcuta neous tissue Neoplasm of uncertain behavior of skin documented in this encounter Care Teams Alumni Coordinator Relationship Specialty Start Date End Date Mira Marino MD PCP - General 04/18/10 10/27/13 HOSPITALIST SERVICES [address] [place] [address] [place] [address] documented as of this encounter
--- OUTSIDE RECORDS SUMMARY | 2022-03-09 01:13 | XMS_ITS | Encounter Summary ---
:1945 Author Organization [facility] [place] [address] Care Team Providers Name Role Phone Leeanne Schultz MD Primary Care Provider Reason for Visit Reason Comments Other Encounter Details Date Type Department Care Team Description 07/13/2014 Telephone Dermatology at [facility] Ni Zamudio MD [address] [facility] [place] [address] [facility]-DERMATOLOGY [phone] [place], [place] [address] (Wo rk) Social History Tobacco [...] [place] Edgar MD [facility] ER DR DIANA CANAS-DERMAT [place], [place] [address] (Wo rk) documented as of this encounter Visit Diagnoses Not on filedocumented in this encounter Care Teams Jewel Staker Relationship Specialty Start Date End Date Leeanne Schultz MD PCP - General 10/28/13 [address] [place] [address] documented as of this encounter
--- OUTSIDE RECORDS SUMMARY | 2022-03-09 01:13 | XMS_ITS | Encounter Summary ---
:1945 Author Organization [facility] [place] [address] Care Team Providers Name Role Phone Mira Marino MD Primary Care Provider Reason for Visit Reason Comments Skin Check Encounter Details Date Type Department Care Team Description 02/09/2011 Follow-Up Dermatology Ni Zamudio MD Personal history of [facility] mal ignant melanoma of Drive DR skin (Primary Dx) [address] [phone] RD-DERMATOLOGY [place] [address] (Wo rk) Social History Tobacco Use Types Packs/Day Years Used Date Former Smoker Sex Assigned at Date Recorded Female 10/02/2020 6:58 PM EDT documented as of this encounter Progress Notes Ni Zamudio MD - 02/09/2011 12:09 PM EDT DERMATOLOGY ESTABLISHED PATIENT CLINIC NOTE Date of service: 02/09/2011 Leeanne Bush : 1945 Provider: Ni Zamudio [...] August 2007, she had MIS treated in [place] ? Right lateral thigh. 6. 10/2006 Right lower back, mild to moderate DN , Excised 7. She grew up in [place] with a [...] is a 65 y.o. year old female here today for a full skin check. Did bring in photos of nevi that were taken at previous office visit. Of the one she can see on leftanterior thigh; does not notice any change since last visit. C/o a wart on her finger right index finger x 2. H/o similar spot more distal on finger that turned out to be digital mucous cyst x 2. WOuld like renewal of tretinoin. ADR: Allergies Allergen Reactions ??? Shellfish Derived [...] light brown regularly pigmented papule on the right lateral buttock B.0.4cm Medium brown papule; slight central clearing that is stable-left anterior thigh C.0.6cm evenly pigmented papule -left anterior shoulder D.R hand index finger near MCP: 2 oval dermal plaques approx 0.6cm in diameter. ASSESSMENT/PLAN: A.B.C.Nevi, benign appearing, no change vs photos (though photos poor color quality). Will continue to monitor. Pt to consider taking photos at home to bring to appt. D. Non specific Considered [place] highest on ddx. Pt declines bx. E.Pt [facility]. Rx: Retin-A at bedtime as tolerated. Discussed strategies for decreasing irritation including using 30-45 minutes after washing at night, using pea-sized amount mixed with moisturizer, start 3x/week working up to nightly as tolerated. F.RTC in 3 months for a full skin check Note initiated by: KARYN GO LPN LPN Routed to physician for review and changes: Ni Zamudio MD Section of Dermatology [facility] documented in this encounter Plan of Treatment Upcoming Encounters Date Type Specialty Care Team Description 03/14/2022 Office Visit Dermatology [place] Edgar MD [facility] DR DIANA CANAS-DERMAT [place], [place] [address] (Wo rk) documented as of this encounter Visit Diagnoses Diagnosis Personal history of malignant melanoma o f skin - Primary documented in this encounter Care Teams Produce Service Team Member Relationship Specialty Start Date End Date Mira Marino MD PCP - General 04/18/10 10/27/13 HOSPITALIST SERVICES [address] [place] [address] [place] [address] documented as of this encounter
--- OUTSIDE RECORDS SUMMARY | 2022-03-09 01:13 | XMS_ITS | Encounter Summary ---
:1945 Author Organization [facility] [place] [address] Care Team Providers Name Role Phone Leeanne Schultz MD Primary Care Provider Reason for Visit Reason Onset Date Comments Other 04/04/2015 telephone Encounter Details Date Type Department Care Team Description 04/04/2015 Telephone Dermatology at Grover Lucas MD Other (telephone) [facility] [address] [facility] [place] [address] [place] [address] [phone] (Wo rk) Social History Tobacco Use Types [...] and would know what she was requesting. [phone]. Patient is hoping to be seen in April. She is going out of state in May. documented in this encounter Plan of Treatment Upcoming Encounters Date Type Specialty Care Team Description 03/14/2022 Office Visit Dermatology [place] Edgar MD [facility] ER DR DIANA CANAS-DERMAT [place], [place] [address] (Wo rk) documented as of this encounter Visit Diagnoses Diagnosis Family history of melanoma Family history of other specified malign ant neoplasm documented in this encounter Care Teams Bookkeeper Receptionist Relationship Specialty Start Date End Date Leeanne Schultz MD PCP - General 10/28/13 [address] [place] [address] documented as of this encounter
--- OUTSIDE RECORDS SUMMARY | 2022-03-09 01:13 | XMS_ITS | Encounter Summary ---
:1945 Author Organization [facility] [place] [address] Care Team Providers Name Role Phone Leeanne Schultz MD Primary Care Provider Encounter Details Date Type Department Care Team Description 01/25/2015 Orders Only Hematology and Oncol haydee at [facility] [place] [address] Social History Tobacco Use Types Packs/Day [...] [place] Edgar MD [facility] ER DR DIANA CANAS-DERMAT [place], [place] [address] (Wo rk) documented as of this encounter Visit Diagnoses Not on filedocumented in this encounter Care Teams [facility] Relationship Specialty Start Date End Date Leeanne Schultz MD PCP - General 10/28/13 [address] [place], [place] [address] documented as of this encounter
--- OUTSIDE RECORDS SUMMARY | 2022-03-09 01:13 | XMS_ITS | Encounter Summary ---
:1945 [place] [address] Care Team Providers Name Role Phone Kajal Schultz MD Primary Care Provider Reason for Visit Reason Comments Skin Check Encounter Details Date Type Department Care Team Description 10/15/2014 [facility]; [facility] Personal history of malignan t melanoma of skin [address] [place] [address] [facility] [phone] RD-DERMATOLOGY [place] [address] (Wo rk) Social History Tobacco Use Types [...] encounter. Chris Zamudio MD Section of Dermatology [facility] documented in this encounter Plan of Treatment Upcoming Encounters Date Type Specialty Care Team Description 03/14/2022 Office Visit Dermatology [place] Edgar MD [facility] ER DR DIANA CANAS-DERMAT [place], [place] [address] (Wo rk) documented as of [...] Component Value Ref Test Analysis Performed At [facility] gist Range Method Time Signature Surgical CERNER Pathology ? [facility] Report ? Provider: ?? NI ZAMUDIO ? Pt. Name: ?? [facility] ER, KAJAL R ? Acc #: ?[id number] ? Pt. ? Col Date: ?? 5 [...] and confirm Dr. Dong Larsen's diagnosis. ? [facility] ? Provider: ?? NI ZAMUDIO ? Pt. Name: ?? HAJA CLARK, KAJAL Ureña ? Acc #: ?[id number] ? Pt. ? Col Date: ?? 5 [...] negative controls. ??These ? IHC studies provide [facility] pathologist with adjunctive diagnostic information. ? [...] ORDERABLE S Performing Organization Address City/[facility]/[place]IP [place] [address] CERNER sliceXENNIUM Specimen to Pathology (NON-OR) (10/15/2014 9:01 AM EDT) Specimen Anatomical Collection Method Collection Time Receive d Time (Source) Location / / Volume Laterality AP Specimen 10/15/2014 9:01 AM 5 9:01 EDT AM EDT Narrative CERNER MILLENNIUM - 10/15/2014 9:01 AM E DT Specimen requisition ordered. ??Separate Pathology report to follow Ni Zamudio MD PATHOLOGY/CYTOLOGY ORDERABLE S Performing Organization Address City/[facility]/ZIP [facility] [place] [address] CERNER e-[employer]IUM documented in this encounter Visit Diagnoses Diagnosis Skin lesion Unspecified disorder of skin and subcuta neous tissue Personal history of malignant melanoma o f skin documented in this encounter Care Teams Video Intern Relationship Specialty Start Date End Date Kajal Schultz MD PCP - General 10/28/13 [address] [place] [address] documented as of this encounter
--- OUTSIDE RECORDS SUMMARY | 2022-03-09 01:13 | XMS_ITS | Encounter Summary ---
:1945 [place] [address] Care Team Providers Name Role Phone Kajal Schultz MD Primary Care Provider Reason for Visit Reason Comments Skin Check Encounter Details Date Type Department Care Team Description 07/14/2014 Follow-Up Dermatology at [facility] Grover Zamudio MD Skin lesion; [facility] Personal history of malignan t melanoma of skin [address] [place] [address] [facility] [phone] RD-DERMATOLOGY [place], [place] [address] (Wo rk) Social History Tobacco [...] if you have further questions or concerns. [phone] After 5PM, holidays and weekends call [phone] and ask for the Rivet Spinner nascar pit crew person. Doctor: Ni Zamudio MD Nurse: Tracy Jj [...] August 2007, she had MIS treated in [place] ? Right lateral [...] encounter. Ni Zamudio MD Section of Dermatology [facility] documented in this encounter Plan of Treatment Upcoming Encounters Date Type Specialty Care Team Description 03/14/2022 Office Visit Dermatology [place] Edgar MD [facility] DR DIANA ACNAS-DERMAT [place], [place] [address] (Wo rk) documented as of [...] Component Value Ref Test Analysis Performed At [facility] gist Range Method Time Signature Surgical CERNER Pathology ? [facility] Report ? Provider: ?? NI ZAMUDIO ? Pt. Name: ?? HAJA CLARK, KAJAL Ureña ? Acc #: ?[id number] ? Pt. ? Col Date: ?? 5 [...] Multiple deeper levels have been examined. ? [facility] ? Provider: ?? NI ZAMUDIO ? Pt. Name: ?? HAJA ER, KAJAL R ? Acc #: ?[id number] ? Pt. ? Col Date: ?? 5 [...] Organization Address City/State/[place] [address] [facility] Specimen to Pathology (NON-OR) (07/14/2014 9:42 AM [...] Organization Address City/State/[place] [address] GUILLERMINA WILKS documented in this encounter Visit Diagnoses Diagnosis Skin lesion Unspecified disorder of skin and subcuta neous tissue Personal history of malignant melanoma o f skin documented in this encounter Care Teams Nursing Officer Relationship Specialty Start Date End Date Kajal Schultz MD PCP - General 10/28/13 [address] [place] [address] documented as of this encounter
--- OUTSIDE RECORDS SUMMARY | 2022-03-09 01:13 | XMS_ITS | Encounter Summary ---
:1945 Author Organization [facility] [place] [address] Care Team Providers Name Role Phone Leeanne Schultz MD Primary Care Provider Reason for Visit Reason Onset Date Comments Other 01/19/2014 Telephone Call Encounter Details Date Type Department Care Team Description 01/19/2014 [facility] Geneva Goldberg MD [address] [place] [address] [facility]-DERMATOLOGY [place], [place] [address] (Wo rk) Social History Tobacco Use Types Packs/Day Years Used Date Former Smoker Smokeless Tobacco: Never Used Alcohol Use Standard Drinks/Week Comments Yes 7 (1 standard drink = 0.6 oz pure alcoho l) Sex Assigned at Date Recorded Female 10/02/2020 6:58 PM EDT documented as of this encounter Miscellaneous Notes Telephone Encounter - Michael Cee - 01/19/2014 10:04 AM EDT This resume writer spoke with Leeanne Bush. Patient declined [...] [place] Edgar MD [facility] DR DIANA CANAS-DERMAT [place], [place] [address] (Wo rk) documented as of this encounter Visit Diagnoses Not on filedocumented in this encounter Care Teams Film Rental Clerk Relationship Specialty Start Date End Date Leeanne Schultz MD PCP - General 10/28/13 [address] [place] [address] documented as of this encounter
--- OUTSIDE RECORDS SUMMARY | 2022-03-09 01:13 | XMS_ITS | Encounter Summary ---
:1945 Author Organization [facility] [place] [address] Care Team Providers Name Role Phone Leeanne Schultz MD Primary Care Provider Reason for Referral Physical Therapy (Routine) - Closed Specialty Diagnoses / Procedures Referred By Contact Refer red To Contact Physical Therapy Diagnoses Plantar fasciitis of left foot Alli Mao PA [address] [place] [address] Referral ID Status Reason Start Date Expiration Date Visits V isits Requested Authorized [id number] Closed Evaluate and 11/03/2013 05/02/2014 8 8 Treat Reason for Visit Reason Comments Left Foot Pain Encounter Details Date Type Department Care Team Description 11/03/2013 Office Visit Orthopaedics at [facility] Donnell Leiva MD Plantar fasciitis of left foot (Primary Dx); [facility] f ibromatosis [facility] [place] [address] ORTHOPAEDIC [phone] SURGERY [place], [place] [address] Social History Tobacco Use Types [...] NAME: Leeanne Bush AGE: 68 y.o. MR#: [id number] DATE OF VISIT: 11/03/2013 DATE OF INJURY/ONSET: [...] wear due to pain. She was in [place] and has seen threepodiatrist, and has 6-7 [...] 03/14/2022 Office Visit Dermatology [place] Edgar MD [facility] DR DIANA CANAS-DERMAT [place], [place] [address] (Wo rk) Scheduled Referrals Name Type Priority Associated Diagnoses Order S chedule Referral to Outpatient Referral Routine Plantar fasciitis of Ordered: Physical Therapy left foot 11/03/2013 documented as of this encounter Visit Diagnoses Diagnosis Plantar fasciitis of left foot - Primary Plantar fascial fibromatosis Plantar fibromatosis Plantar fascial fibromatosis documented in this encounter Care Teams Cartographic Engineer Relationship Specialty Start Date End Date Leeanne Schultz MD PCP - General 10/28/13 [address] [place] [address] documented as of this encounter
--- OUTSIDE RECORDS SUMMARY | 2022-03-09 01:13 | XMS_ITS | Encounter Summary ---
:1945 Author Organization [facility] [place] [address] Care Team Providers Name Role Phone Leeanne Schultz MD Primary Care Provider Encounter Details Date Type Department Care Team Description 08/12/2014 Telephone Dermatology at [facility] Ni Zamudio MD [address] [facility] [place] [address] [facility]-DER[facility] [phone] [place] [address] (Wo rk) Social History Tobacco Use Types [...] Visit Dermatology [place] Edgar MD [facility] ER DR DIANA CANAS-DERMAT [place], [place] [address] (Wo rk) documented as of this encounter Visit Diagnoses Not on filedocumented in this encounter Care Teams Ad Trafficker Relationship Specialty Start Date End Date Leeanne Schultz MD PCP - General 10/28/13 [address] [place] [address] documented as of this encounter
--- OUTSIDE RECORDS SUMMARY | 2022-03-09 01:13 | XMS_ITS | Encounter Summary ---
:1945 Author Organization [facility] [place] [address] Care Team Providers Name Role Phone Leeanne Schultz MD Primary Care Provider Encounter Details Date Type Department Care Team Description 11/03/2013 Hospital Encounter [facility] at [facility] Left foot pain [address] [place] [address] [place] [address] Social History Tobacco Use Types Packs/Day [...] Take 5 mg by mouth 0 05/1 Tablet nightly. CELEBREX 200 mg capsule Take [...] Visit Dermatology [place] Edgar MD [facility] ER DR DIANA CANAS-DERMAT [place], [place] [address] (Wo rk) documented as of [...] limb documented in this encounter Care Teams Landscape Architect And Planner Relationship Specialty Start Date End Date Leeanne Schultz MD PCP - General 10/28/13 [address] [place] [address] documented as of this encounter
--- OUTSIDE RECORDS SUMMARY | 2022-03-09 01:13 | XMS_ITS | Encounter Summary ---
:1945 Author Organization [facility] [place] [address] Care Team Providers Name Role Phone Leeanne Schultz MD Primary Care Provider Reason for Visit Reason Comments Follow-up Encounter Details Date Type Department Care Team Description 02/04/2015 Office Visit Hematology and Oncology at Marni Sharp APRN [facility] DR HEMATOLOGY-[place] [address] Melanoma [facility] Evy Gramajo MD [facility] HEMATOLOGY/[place] [address] [facility] Kwasi fernández [place] [address] Social History Tobacco Use Types Packs/Day [...] from the original note were not included. [facility] CLINIC NOTE REFERING PHYSICIAN: Dr. Green DIAGNOSIS: [...] [facility] [address] DIANA CANAS-DERMAT [place], [place] [address] (Wo rk) documented as of this encounter Visit Diagnoses Diagnosis Melanoma Melanoma of skin, site unspecified documented in this encounter Care Teams General Repair Mechanic Relationship Specialty Start Date End Date Leeanne Schultz MD PCP - General 10/28/13 [address] [place] [address] documented as of this encounter
--- OUTSIDE RECORDS SUMMARY | 2022-03-09 01:13 | XMS_ITS | Encounter Summary ---
:1945 [place] [address] Care Team Providers Name Role Phone Leeanne Schultz MD Primary Care Provider Encounter Details Date Type Department Care Team Description 06/29/2014 External [place] [address] Social History Tobacco Use Types Packs/Day [...] [facility] DR DIANA CANAS-DERMAT [place], [place] [address] (Wo rk) documented as of this encounter Visit Diagnoses Not on filedocumented in this encounter Care Teams Wigs Salesperson Relationship Specialty Start Date End Date Leeanne Schultz MD PCP - General 10/28/13 [address] [place] [address] documented as of this encounter
--- OUTSIDE RECORDS SUMMARY | 2022-03-09 01:13 | XMS_ITS | Encounter Summary ---
:1945 Author Organization [facility] Address [place] [id number] Care Team Providers Name Role Phone Leeanne Schultz MD Primary Care Provider Reason for Referral MRI/CAT Scan (Routine) - Closed Specialty Diagnoses / Procedures Referred By Contact Refer red To Contact Radiology Diagnoses Melanoma Evy Gramajo MD [facility] Rad Ct Scan Procedures PET/CT Standard Plus Extremities and Head [facility] HEMATOLOGY/[place] [address] [place] [address] Referral ID Status Reason Start Date Expiration Date Visits Requ ested Visits Authorized [id number] Closed 01/26/2015 01/26/2016 1 1 Reason for Visit MRI/CAT Scan (Routine) - Closed Specialty Diagnoses / Procedures Referred By Contact Refer red To Contact Radiology Diagnoses Melanoma Evy Gramajo MD [facility] Rad Ct Scan Procedures PET/CT Standard Plus Extremities and Head [facility] HEMATOLOGY/[place] [address] [place] [address] Referral ID Status Reason Start Date Expiration Date Visits Requ ested Visits Authorized [id number] Closed 01/26/2015 01/26/2016 1 1 Encounter Details Date Type Department Care Team Description 02/04/2015 Hospital Encounter Nuclear Medicine at [facility] [place] lancaster MD [facility] [address] Baldwin HEMATOLOGY/[place] [address] DEPT [phone] [place], [place] [address] (Wo rk) Social History Tobacco [...] [place] Edgar MD [facility] ER DR DIANA CANAS-DERMAT [place], [place] [address] (Wo rk) documented as of [...] 1. ??Focus of FDG activity at the scalder ior tongue. This could be due to [...] calculus. Thank you for referring this patient [facility]. This report was reviewed by Mehnaz Saenz at 02/04/2015 2:04 PM Narrative 02/04/2015 2:04 PM EDT EXAMINATION: PET/CT STANDARD WITH EXTREMITIES AND HEAD CLINICAL HISTORY: melanoma TECHNIQUE: Following IV injection of 18- zunavr-5-yvsvfrlbsski (FDG) a standard uptake of approximately 60 [...] melanoma TECHNIQUE: Following IV injection of 18- ftmbls-7-xgdvlepoutrf (FDG) a standard uptake of approximately 60 [...] calculus. Thank you for referring this patient [facility]. This report was reviewed by Mehnaz Saenz at 02/04/2015 2:04 PM Evy Gramajo MD IMG PET ORDERABLES POCT Glucose (02/04/2015 8:58 AM EDT) athologist Signature POC Glucose 82 65 - 199 CERNER mg/dL [facility] Comment: Supplemental ranges: <140 mg/dL before meals <180 mg/dL all other times of the day Specimen Anatomical Collection Method Collection Time Receive d Time (Source) Location / / Volume Laterality Blood specimen 02/04/2015 8:58 AM 015 8:58 (specimen) EDT AM EDT Evy Gramajo MD POINT OF CARE TEST ORDERABLE S Performing Organization Address City/State/ZIP Code Phon e Number [address] [facility] documented in this encounter Visit Diagnoses [...] Routine documented in this encounter Care Teams Rehab Nurse Relationship Specialty Start Date End Date Leeanne Schultz MD PCP - General 10/28/13 [address] [place] [address] documented as of this encounter
--- OUTSIDE RECORDS SUMMARY | 2022-03-09 01:13 | XMS_ITS | Encounter Summary ---
:1945 Author Organization [facility] [place] [address] Care Team Providers Name Role Phone Leeanne Schultz MD Primary Care Provider Encounter Details Date Type Department Care Team Description 11/25/2014 Telephone Dermatology at [facility] Ni Zamudio MD [address] [place] [address] [facility] [phone] [place] [address] (Wo rk) Social History Tobacco Use Types [...] [facility] [address] DIANA CANAS-DERMAT [place], [place] [address] (Wo rk) documented as of this encounter Visit Diagnoses Not on filedocumented in this encounter Care Teams Button Sewing Machine Operator Relationship Specialty Start Date End Date Leeanne Schultz MD PCP - General 10/28/13 [address] [place] [address] documented as of this encounter
--- OUTSIDE RECORDS SUMMARY | 2022-03-09 01:13 | XMS_ITS | Encounter Summary ---
:1945 Author Organization [facility] [place] [address] Care Team Providers Name Role Phone Leeanne Schultz MD Primary Care Provider Reason for Visit Reason Comments Follow-up Encounter Details Date Type Department Care Team Description 04/15/2015 Office Visit Hematology and Rox, Evy, Melanoma; Oncology at [facility] Numbness and tingling of left side of fa ce [facility] [address] [place] H[place]ATOLOGY/ONCOLOG [address] Y DEPT [phone] [place], [place] [address] Social History Tobacco Use Types [...] from the original note were not included. [facility] NOTE REFERING PHYSICIAN: Dr. Green DIAGNOSIS: [...] local excision with sentinelnode biopsy done in [place] In 2008 resected right lateral thigh thin [...] without specific intervention. She is going to [place] until the end of July during winter season. She will continue to follow-up with dermatology team. Pt was instructed to call our clinic with any new symptom or any questions. Evy Gramajo MD documented in this encounter Plan of Treatment Upcoming Encounters Date Type Specialty Care Team Description 03/14/2022 Office Visit Dermatology [place] Edgar MD [facility] ER DR DIANA CANAS-DERMAT [place], [place] [address] (Wo rk) documented as of this encounter Visit Diagnoses Diagnosis Melanoma Melanoma of skin, site unspecified Numbness and tingling of left side of fa ce documented in this encounter Care Teams Gift Wrapper Relationship Specialty Start Date End Date Leeanne Schultz MD PCP - General 10/28/13 [address] [place] [address] documented as of this encounter
--- OUTSIDE RECORDS SUMMARY | 2022-03-09 01:13 | XMS_ITS | Encounter Summary ---
:1945 Author Organization [place] [address] Care Team Providers Name Role Phone Leeanne Schultz MD Primary Care Provider Reason for Referral Diagnostic Test (Routine) - Closed Specialty Diagnoses / Procedures Referred By Contact Refer red To Contact Radiology Diagnoses Melanoma Evy Gramajo MD [facility] Rad Mri Procedures MRI Face With/WO Contrast MRI Orbit Face And Or Neck With/WO Contrast [facility] HEMATOLOGY/[place] [address] [place] [address] Referral ID Status Reason Start Date Expiration Date Visits V isits Requested Authorized [id number] Closed Specialty 04/11/2015 04/10/2016 1 1 Service Requested Encounter Details Date Type Department Care Team Description 04/06/2015 Orders Only Hematology and Evy Gramajo, Melanoma (Primary Dx) Oncology at [facility] Counts include [address] beds at [address] [facility] [place] [address] HEMATOLOGY/ONCOLOG [phone] Y DEPT [place], [place] [address] Social History Tobacco Use Types [...] [place] Edgar MD [facility] ER DR DIANA CANAS-DERMAT [place], [place] [address] (Wo rk) documented as of [...] cervical lymphadenopathy. Normal appearance of th e wind energy engineer space, parotid glands and mandible. No evidence [...] cervical lymphadenopathy. Normal appearance of th e wind energy engineer space, parotid glands and mandible. No evidence [...] unspecified documented in this encounter Care Teams Teletype Operator Relationship Specialty Start Date End Date Leeanne Schultz MD PCP - General 6/25/14 [address] [place] [address] documented as of this encounter
--- OUTSIDE RECORDS SUMMARY | 2022-03-09 01:13 | XMS_ITS | Encounter Summary ---
:1945 Author Organization [facility] [place] [address] Care Team Providers Name Role Phone Mira Marino MD Primary Care Provider Reason for Visit Reason Comments Skin Check h/o melanoma x 3 Encounter Details Date Type Department Care Team Description 11/01/2010 Follow-Up Dermatology Ni Zamudio MD Benign neoplasm of skin of trunk, except scrotum (Primary Dx); [facility] Per jenny history of malignant melanoma of skin Drive [place] [id number] [facility] [phone] RD-DERMATOLOGY [place] [phone] (Wo rk) Social History Tobacco Use Types [...] August 2007, she had MIS treated in [place] ? Right lateral thigh. 6. 10/2006 Right [...] raised. She has seen multiple providers at [facility] for skin check; this is her first [...] changes: Ni Zamudio MD Section of Dermatology [facility] documented in this encounter Plan of Treatment Upcoming Encounters Date Type Specialty Care Team Description 03/14/2022 Office Visit Dermatology [place] Edgar MD [facility] [address] DIANA CANAS-DERMAT [place], [place] [address] (Wo rk) documented as of this encounter Visit Diagnoses Diagnosis Benign neoplasm of skin of trunk, except scrotum - Primary Personal history of malignant melanoma o f skin documented in this encounter Care Teams Manager Completions Relationship Specialty Start Date End Date Mira Marino MD PCP - General 04/18/10 10/27/13 HOSPITALIST SERVICES [address] [place] [address] [place] [address] documented as of this encounter
--- OUTSIDE RECORDS SUMMARY | 2022-03-09 01:13 | XMS_ITS | Encounter Summary ---
:1945 Author Organization [facility] [place] [address] Care Team Providers Name Role Phone Leeanne Schultz MD Primary Care Provider Encounter Details Date Type Department Care Team Description 02/04/2015 Hospital Encounter Hematology and Oncology at [facility]; [facility] [place] [address] Social History Tobacco Use Types Packs/Day [...] [facility] ER DR DIANA CANAS-DERMAT [place], [place] [address] (Wo rk) documented as of [...] Organization Address City/State/ZIP Code Phon e Number [place] [phone] CERNER MILLENNIUM (ABNORMAL) Hemogram [...] 9.7 9.0 - 12.0 [place] fL [facility] Specimen Anatomical Collection Method Collection Time Receive d Time (Source) Location / / Volume Laterality Blood specimen 02/04/2015 12:49 5 1:11 (specimen) PM EDT PM EDT Resulting Agency Comment Spec In Lab Evy Gramajo MD HEMATOLOGY ORDERABLES Performing Organization Address City/State/ZIP Code Phon e Number [address] [place] MILLENNIUM T4, free (02/04/2015 12:49 PM EDT) athologist Signature Free T4 1.09 0.93 - 1.70 [place] ng/dL [facility] Specimen Anatomical Collection Method Collection Time Receive d Time (Source) Location / / Volume Laterality Blood specimen 02/04/2015 12:49 5 1:11 (specimen) PM EDT PM EDT Resulting Agency Comment Spec In Lab Evy Gramajo MD CHEMISTRY ORDERABLES Performing Organization Address City/[facility]/ZIP Code Phon e Number [address] [place] MILLENNIUM (ABNORMAL) TSH (02/04/2015 12:49 PM EDT) athologist Signature TSH 5.04 (H) 0.27 - 4.20 [place] mcIU/mL [facility] Specimen Anatomical Collection Method Collection Time Receive d Time (Source) Location / / Volume Laterality Blood specimen 02/04/2015 12:49 5 1:11 (specimen) PM EDT PM EDT Resulting Agency Comment Spec In Lab Evy Gramajo MD CHEMISTRY ORDERABLES Performing Organization Address City/State/[place] [address] [facility] Lactate Dehydrogenase (02/04/2015 12:49 PM EDT) athologist Signature LDH 167 110 - 220 [place] unit/L MILLENNIUM Specimen Anatomical Collection Method Collection Time Receive d Time (Source) Location / / Volume Laterality Blood specimen 02/04/2015 12:49 5 1:11 (specimen) PM EDT PM EDT Resulting Agency Comment Spec In Lab Evy Gramajo MD CHEMISTRY ORDERABLES Performing Organization Address City/State/[place] [address] CERNER MILLENNIUM (ABNORMAL) Comprehensive [...] intervals supplied above were not validated at [facility]. Results from pediatri c patients should be [...] the following links into your internet browser. [email or web address]/DHnkdep http://[employer]/DHMCnkf Specimen Anatomical Collection Method Collection Time Receive d Time (Source) Location / / Volume Laterality Blood specimen 02/04/2015 12:49 5 1:11 (specimen) PM EDT PM EDT Resulting Agency Comment Spec In Lab Evy Gramajo MD CHEMISTRY ORDERABLES Performing Organization Address City/State/[place] [address] GUILLERMINA WILKS documented in this encounter Visit Diagnoses Diagnosis Melanoma Melanoma of skin, site unspecified Chronic fatigue Other malaise and fatigue documented in this encounter Care Teams Research Support Specialist Relationship Specialty Start Date End Date Leeanne Schultz MD PCP - General 10/28/13 [address] [place] [address] documented as of this encounter
--- OUTSIDE RECORDS SUMMARY | 2022-03-09 01:13 | XMS_ITS | Encounter Summary ---
:1945 Author Organization [facility] [place] [address] Care Team Providers Name Role Phone Leeanne Schultz MD Primary Care Provider Encounter Details Date Type Department Care Team Description 10/28/2014 Telephone Dermatology at [facility] Ni Zamudio MD [address] [facility] [place] [address] [facility]-DERMATOLOGY [phone] [place] [address] (Wo rk) Social History Tobacco Use Types [...] MD [facility] DR [address]-DERMAT [place], [place] [address] (Wo rk) documented as of this encounter Visit Diagnoses Not on filedocumented in this encounter Care Teams Head Of Ict Relationship Specialty Start Date End Date Leeanne Schultz MD PCP - General 10/28/13 [address] [place] [address] documented as of this encounter
--- OUTSIDE RECORDS SUMMARY | 2022-03-09 01:13 | XMS_ITS | Encounter Summary ---
:1945 Author Organization [facility] [place] [address] Care Team Providers Name Role Phone Leeanne Schultz MD Primary Care Provider Reason for Referral Consultation (Routine) - Closed Specialty Diagnoses / Procedures Referred By Contact Refer red To Contact Hematology and Oncology Diagnoses History of melanoma Ni Zamudio MD Shirai, Keisuke, MD [facility] ENTER DR DR ORTIZ HEMATOLOGY/ONCOL OGKaz [place] [address] [place] [address] Fax: Referral ID Status Reason Start Date Expiration Date Visits V isits Requested Authorized [id number] Closed Consult, 01/20/2015 01/20/2016 3 3 Test & Treat Reason for Visit Reason Comments Skin Check Encounter Details Date Type Department Care Team Description 01/19/2015 Follow-Up Dermatology at [place] Lucas MD History of melanoma [facility] [address] [place] [address] [address] [phone] [address]-DERMATOLOGY [place] [address] (Wo rk) Social History Tobacco Use Types [...] encounter. Ni Zamudio MD Section of Dermatology [facility] documented in this encounter Plan of Treatment Upcoming Encounters Date Type Specialty Care Team Description 03/14/2022 Office Visit Dermatology [place] Edgar MD [facility] DR DIANA CANAS-DERMAT [place], [place] [address] (Wo rk) Scheduled Referrals Name Type Priority Associated Order Schedule Diagnoses Referral to Outpatient Referral Routine History of melanoma O rdered: Hematology and 01/20/2015 Oncology documented as of this encounter Visit Diagnoses Diagnosis History of melanoma Personal history of malignant melanoma o f skin documented in this encounter Care Teams Trauma Registrar Relationship Specialty Start Date End Date Leenane Schultz MD PCP - General 10/28/13 [address] [place] [address] documented as of this encounter
--- OUTSIDE RECORDS SUMMARY | 2022-03-09 01:13 | XMS_ITS | Encounter Summary ---
:1945 Author Organization [facility] [place] [address] Care Team Providers Name Role Phone Kajal Schultz MD Primary Care Provider Reason for Visit Reason Comments Procedure Melanoma x 2; MIS x 1 Encounter Details Date Type Department Care Team Description 07/16/2014 Procedure visit Dermatology at [facility] Ni Rothman, Skin lesion; [place] PETER Melanoma, malignant, upper extremity, le ft; [address] [facility] Melanoma, malignant, upper e xtremity, right; [facility] Melanoma in situ of lower extremity, [place] [address] [facility] [phone] RD-DERMATOLOGY [place] [address] Social History Tobacco Use Types Packs/Day Years [...] the hospital number and ask for the Assistant Professor Of Psychology family consumer science fcs teacher. documented in this encounter Progress Notes Melani [...] exam: Pathology Report: Rec Date: 06/30/2014 LOC: [facility] SURGICAL PATHOLOGY ---Pathologic Diagnosis--- A - [...] TNM Codes: pT1a Rec Date: 07/14/2014 LOC: [facility] SURGICAL PATHOLOGY ---Pathologic Diagnosis--- A - [...] 2. Procedure Notes: Surgeon: Ni Rothman MD Machine Stonecutter: Tracy Jj LPN A. Excision of lesion, [...] exam Ni Rothman MD Section of Dermatology [facility] documented in this encounter Plan of Treatment Upcoming Encounters Date Type Specialty Care Team Description 03/14/2022 Office Visit Dermatology [place] Edgar MD [facility] DR DIANA CANAS-DERMAT [place], [place] [address] (Wo rk) documented as [...] Ref Test Analysis Performed At [facility] Range Method Time Signature Surgical CERNER Pathology ? [facility] [place] Report ? Provider: ?? NI ROTHMAN ? Pt. Name: ?? WILFREDO RODARTEAH Niranjan ? Acc #: ?[id number] ? Pt. ? Col Date: ?? 5 [...] ? diagnosis. ? ---Comment--- ? A - Barnard-1 immunohistochemistry highlights intraepi dermal and dermal ? [...] immunohistochemical perfo rmance ? characteristics. The ? [facility] ? Provider: ?? LORNA, NI Owen ? Pt. Name: ?? HAJA ER, KAJAL Ureña ? Acc #: ?[id number] ? Pt. ? Col Date: ?? 5 [...] ? A - 0.9 cm pink scar; [id number] ? B - 0.6 cm pink scar; [id number] ? C - 0.5 cm pink scar; [id number] ? Clinical Diagnosis: ? A - Scar, rule out residual malignant melanoma6 Scar ? B - Scar, rule out residual malignant melanoma ? C - Scar, rule out residual MIS. Specimen (Source) Anatomical Collection Method Collection Time Re ceived Time Location / / Volume Laterality 07/16/2014 5:21 PM EDT Ni Rothman MD PATHOLOGY/CYTOLOGY ORDERABLE S Performing Organization Address City/State/ZIP Code [place] [address] [facility] Specimen to Pathology (NON-OR) (07/16/2014 5:21 PM [...] Organization Address City/State/[place] [address] [facility] documented in this encounter Visit Diagnoses Diagnosis Skin lesion Unspecified disorder of skin and subcuta neous tissue Melanoma, malignant, upper extremity, le ft Melanoma, malignant, upper extremity, ri ght Melanoma in situ of lower extremity, lef t documented in this encounter Care Teams Campus Dean Relationship Specialty Start Date End Date Kajal Schultz MD PCP - General 10/28/13 [address] [place] [address] documented as of this encounter
--- OUTSIDE RECORDS SUMMARY | 2022-03-09 01:13 | XMS_ITS | Encounter Summary ---
:1945 Author Organization [facility] [place] [address] Care Team Providers Name Role Phone Mira Marino MD Primary Care Provider Reason for Visit Reason Onset Date Comments Other 02/14/2011 PA for Tretinoin 0.0 25% cream Encounter Details Date Type Department Care Team Description 02/14/2011 Telephone Dermatology Ni Zamudio MD Other (PA for Tretinoin [facility] 0.0 25% cream) Drive [place] [id number] [facility] [phone] RD-DERMATOLOGY [place] [address] (Wo rk) Social History Tobacco Use Types [...] Visit Dermatology [place] Edgar MD [facility] DR DIANA CANAS-DERMAT [place], [place] [address] (Wo rk) documented as of this encounter Visit Diagnoses Not on filedocumented in this encounter Care Teams Marklogic Developer Relationship Specialty Start Date End Date Mira Marino MD PCP - General 04/18/10 10/27/13 HOSPITALIST SERVICES [address] [place] [address] [place] [address] documented as of this encounter
--- OUTSIDE RECORDS SUMMARY | 2022-03-09 01:13 | XMS_ITS | Encounter Summary ---
:1945 Author Organization [facility] [place] [address] Care Team Providers Name Role Phone Mira Marino MD Primary Care Provider Reason for Visit Reason Onset Date Comments Other 10/23/2012 telephone call Encounter Details Date Type Department Care Team Description 10/23/2012 Telephone Dermatology at [facility] Eleanor Vazquez (telephone call Road Dara Brito MD ) [address] [place] [address] [facility]-DER[facility]Y [place] [address] Social History Tobacco Use Types Packs/Day Years [...] Dr. Alvarez, Please call Ms. Bush at [phone] regarding her biopsy result. Thank you, Mavis documented in this encounter Plan of Treatment Upcoming Encounters Date Type Specialty Care Team Description 03/14/2022 Office Visit Dermatology [place] Edgar MD [facility] DR DIANA CANAS-DERMAT [place], [place] [address] (Wo rk) documented as of this encounter Visit Diagnoses Not on filedocumented in this encounter Care Teams Molecular Physicist Relationship Specialty Start Date End Date Mira Marino MD PCP - General 04/18/10 10/27/13 HOSPITALIST SERVICES [address] [place] [address] [place] [address] documented as of this encounter
--- OUTSIDE RECORDS SUMMARY | 2022-03-09 01:13 | XMS_ITS | Encounter Summary ---
:1945 [place] [address] Care Team Providers Name Role Phone Mira Marino MD Primary Care Provider Reason for Visit Reason Comments Skin Lesion Encounter Details Date Type Department Care Team Description 03/04/2013 Follow-Up Dermatology at [place]ver Lucas MD Skin lesion (Primary Road [facility] Dx) [address] [place] [address] [facility] [phone] RD-DERMATOLOGY [place], [place] [address] (Wo rk) Social History Tobacco Use Types Packs/Day Years Used Date Former Smoker Sex Assigned at Date Recorded Female 10/02/2020 6:58 PM EDT documented as of this encounter Progress Notes Amy Quiroz RN - 03/10/2013 8:07 AM DONITA Jenkins Note: Letter sent Ni Chow MD - 03/04/2013 11:53 AM EDT DERMATOLOGY ESTABLISHED PATIENT CLINIC NOTE Date of service: 03/04/2013 Kajal Bush : 1945 Provider: Ni Zamudio [...] August 2007, she had MIS treated in [place] ? Right lateral thigh. 6. 10/2006 Right [...] Kajal Bush is a 67 y.o. female. She presents today for a lump on her right arm present for two years, but she thinks that it is getting bigger. It is tender. ADR: Allergies Allergen Reactions ??? Morphine Sulfate [...] EXAM General: NAD, pleasant, cooperative Skin: A focused skin exam was performed on the right upper arm Significant skin findings: A. 0.5cm x 0.3cm Erythematous Firm nodule right superior axillary vault ASSESSMENT/PLAN: A. Inflamed EIC vs Neurofibroma vs. Irritated Dermal nevus Procedure: Skin biopsy by punch technique. Location: right superior axillary vault Discussed indications for the procedure and expectations including risks and benefits. Verbal consent obtained. Skin prep with alcohol. Local anesthesia: buffered 1% lidocaine with 1/100,000 epinephrine. A 4 mm punch biopsy to the level of the subcutis was performed. Wound closed with monofilament suture. There were no complications; the patient tolerated the procedure well. The wound was dressed. Post-procedure expectations (including discomfort management), wound care and activity restrictions were reviewed. Follow-up based on pathology results. Suture removal: 10 days B. RTC as scheduled for skin check in April 2013. Patient instructed to call with questions or concerns. I am documenting this encounter acting as the scribe for and in the presence of Dr. Zamudio.: LEVI GONZALEZ LPN I performed the above scribed service and agree with the accuracy of the documentation in this encounter. Ni Zamudio MD Section of Dermatology [facility] documented in this encounter Plan of Treatment Upcoming Encounters Date Type Specialty Care Team Description 03/14/2022 Office Visit Dermatology [place] Edgar MD [facility] [address] DIANA CANAS-DERMAT [place], [place] [address] (Wo rk) Scheduled Orders Name Type Priority Associated Diagnoses Order S chedule Skin Biopsy Dermatology Routine Skin lesion Ordered: 2012 documented as of this encounter Procedures Procedure Name Priority Date/Time Associated Diagnosis Comme nts SPECIMEN TO Routine 03/04/2013 12:20 PM Skin lesion Results for this PATHOLOGY (NON-OR) EDT procedure are in the results section. SURGICAL PATHOLOGY Routine 03/04/2013 12:20 PM Re sults for this REPORT EDT procedure are i n the results section. documented in this encounter Results Surgical Pathology Report (03/04/2013 12:20 PM EDT) Component Value Ref Test Analysis Performed At [facility] Range Method Time Signature Surgical CERNER Pathology ? [facility] [place] Report ? Provider: ?? LORNA, NI Owen ? Pt. Name: ?? HAJA ER, KAJAL Ureña ? Acc #: ?[id number] ? Pt. ? Col Date: ?? 03/04/20 13 ?/Sex: ?1945,(67 years),Female ? Rec Date: ?? 03/04/2013 ?LOC: ?[facility] ? SURGICAL PATHOLOGY ? ---Pathologic Diagnosis--- ? Skin, right superior axillary vault, punch biopsy: ?Cutaneous fibrous histiocytoma (dermatofibroma). ? CR-0 ? 03/05/13 ? BJM ? 03/05/13 Verified by: ? Herb PETER, PhD, Jose ? Dermatopatholo gist ? (Electronic Si gnature) ? The attending pathologist whose signature appears o n this report has ? reviewed all diagnostic slides and has edited the suzanne ss and/or ? microscopic portion of the report in rendering the fi nal pathologic ? diagnosis. ? ---Gross Description--- ? A - Labeled/Fixative: Right axillary vault, formalin. ? Quantity/Size: Single, 4 mm punch. ? Tissue Description: Punch of callahan-white skin. ? Sections/Processing: On section, surfaces are fibrous, callahan-white, bisected ? (T1) ??pps ? ---Clinical Information--- ? Specimen Submitted: ? A - Skin, right superior axillary vault, punch (1) ? Clinical History: ? 0.5 x 0.3 cm erythematous firm nodule, right superi or axillary vault ? Clinical Diagnosis: ? Cyst Specimen (Source) Anatomical Collection Method Collection Time Re ceived Time Location / / Volume Laterality 03/04/2013 12:20 PM EDT Ni Zamudio MD PATHOLOGY/CYTOLOGY ORDERABLE S Performing Organization Address City/[facility]/[place] [address] CERNER MILLENNIUM Specimen to Pathology (NON-OR) (03/04/2013 12:20 PM EDT) Specimen Anatomical Collection Method Collection Time Receive d Time (Source) Location / / Volume Laterality AP Specimen 03/04/2013 12:20 03/04/2013 PM EDT 12:20 PM EDT Narrative CERNER MILLENNIUM - 03/04/2013 12:20 PM EDT Specimen requisition ordered. ??Separate Pathology report to follow Ni Zamudio MD PATHOLOGY/CYTOLOGY ORDERABLE S Performing Organization Address City/[facility]/ZIP [facility] [place] [address] CERNER MILLENNIUM documented in this encounter Visit Diagnoses Diagnosis Skin lesion - Primary Unspecified disorder of skin and subcuta neous tissue documented in this encounter Care Teams Retail Leasing Agent Relationship Specialty Start Date End Date Mira Marino MD PCP - General 04/18/10 10/27/13 HOSPITALIST SERVICES [address] [place] [address] [place] [address] documented as of this encounter
--- OUTSIDE RECORDS SUMMARY | 2022-03-09 01:13 | XMS_ITS | Encounter Summary ---
:1945 Author Organization [facility] [place] [address] Care Team Providers Name Role Phone Mira Marino MD Primary Care Provider Encounter Details Date Type Department Care Team Description 10/09/2012 Orders Only Dermatology at [facility] Dara Burk [address] [place] [address] [facility] [phone] [facility] FLORESITA-DERMAT [place], [place] [address] Social History Tobacco Use Types Packs/Day Years Used Date Former Smoker Sex Assigned at Date Recorded Female 10/02/2020 6:58 PM EDT documented as of this encounter Progress Notes Lenore Colon LPN - 10/09/2012 4:07 PM EDT Pre-Op Phone Call: I spoke to the patient via telephone and confirmed the following: Patient's full name and : Leeanne Bush, 1945 Provider's name: Dara Pearson MD Date [...] Visit Dermatology [place] Edgar MD [facility] DR DIANA CANAS-[place]MAT [place], [place] [address] (Wo rk) documented as of this encounter Visit Diagnoses Not on filedocumented in this encounter Care Teams Prototype Machine Operator Relationship Specialty Start Date End Date Mira Marino MD PCP - General 04/18/10 10/27/13 HOSPITALIST SERVICES [address] [place] [address] [place], [place] [address] documented as of this encounter
--- OUTSIDE RECORDS SUMMARY | 2022-03-09 01:13 | XMS_ITS | Encounter Summary ---
:1945 Author Organization [facility] Address [place] [id number] Care Team Providers Name Role Phone Leeanne Schultz MD Primary Care Provider Reason for Visit MRI/CAT Scan (Routine) - Closed Specialty Diagnoses / Procedures Referred By Contact Refer red To Contact Radiology Diagnoses Melanoma Evy Gramajo MD [facility] Rad Ct Scan Procedures PET/CT Standard Plus Extremities and Head [facility] HEMATOLOGY/[place] [address] [place] [address] Referral ID Status Reason Start Date Expiration Date Visits Requ ested Visits Authorized [id number] Closed 01/26/2015 01/26/2016 1 1 Encounter Details Date Type Department Care Team Description 02/04/2015 Hospital Encounter Nuclear Medicine at [place] Gramajo MD [facility] [address] Baldwin HEMATOLOGY/[place] [address] DEPT [phone] [place], [place] [address] (Wo rk) Social History Tobacco [...] Dermatology [place] Edgar MD [facility] ER DR DIANA CANAS-DERMAT [place] [address] (Wo rk) documented as of this encounter [...] 1. ??Focus of FDG activity at the metal riveter ior tongue. This could be due to [...] calculus. Thank you for referring this patient [facility]. This report was reviewed by Mehnaz Saenz at 02/04/2015 2:04 PM Narrative 02/04/2015 2:04 PM EDT EXAMINATION: PET/CT STANDARD WITH EXTREMITIES AND HEAD CLINICAL HISTORY: melanoma TECHNIQUE: Following IV injection of 18- fjlnyv-0-fvdallvgrxyh (FDG) a standard uptake of approximately 60 [...] melanoma TECHNIQUE: Following IV injection of 18- eudamx-6-iftqohwfcnsf (FDG) a standard uptake of approximately 60 [...] calculus. Thank you for referring this patient [facility]. This report was reviewed by Mehnaz Saenz at 02/04/2015 2:04 PM Eyv Gramajo MD IMG PET ORDERABLES documented in this encounter Visit Diagnoses Not on filedocumented in this encounter Care Teams Cane Packer Relationship Specialty Start Date End Date Leeanne Schultz MD PCP - General 10/28/13 [address] [place] [address] documented as of this encounter
--- OUTSIDE RECORDS SUMMARY | 2022-03-09 01:13 | XMS_ITS | Encounter Summary ---
:1945 Author Organization [facility] [place] [address] Care Team Providers Name Role Phone Leeanne Schultz MD Primary Care Provider Encounter Details Date Type Department Care Team Description 04/06/2015 Orders Only Hematology and Oncol ogy at [facility] [place] [address] Social History Tobacco Use Types Packs/Day [...] [place] Edgar MD [facility] ER DR DIANA CANAS-DERMAT [place], [place] [address] (Wo rk) documented as of this encounter Visit Diagnoses Not on filedocumented in this encounter Care Teams Corporate Travel Coordinator Relationship Specialty Start Date End Date Leeanne Schultz MD PCP - General 10/28/13 [address] [place], [place] [address] documented as of this encounter
--- OUTSIDE RECORDS SUMMARY | 2022-03-09 01:13 | XMS_ITS | Encounter Summary ---
:1945 Author Organization [facility] Address [place] [id number] Care Team Providers Name Role Phone Leeanne Schultz MD Primary Care Provider Reason for Referral Diagnostic Test (Routine) - Closed Specialty Diagnoses / Procedures Referred By Contact Refer red To Contact Radiology Diagnoses Melanoma Evy Gramajo MD [facility] Rad Mri Procedures MRI Face With/WO Contrast MRI Orbit Face And Or Neck With/WO Contrast [facility] HEMATOLOGY[place] [address] [place] [address] Referral ID Status Reason Start Date Expiration Date Visits V isits Requested Authorized [id number] Closed Specialty 04/11/2015 04/10/2016 1 1 Service Requested Reason for Visit Diagnostic Test (Routine) - Closed Specialty Diagnoses / Procedures Referred By Contact Refer red To Contact Radiology Diagnoses Melanoma Evy Gramajo MD [facility] Rad Mri Procedures MRI Face With/WO Contrast MRI Orbit Face And Or Neck With/WO Contrast [facility] Delaney [facility] HEMATOLOGY/[place] [address] [place] [address] Referral ID Status Reason Start Date Expiration Date Visits V isits Requested Authorized [id number] Closed Specialty 04/11/2015 04/10/2016 1 1 Service Requested Encounter Details Date Type Department Care Team Description 04/15/2015 Hospital Encounter MRI at [facility] Evy Gramajo MD Melanoma [facility] [place] [address] HEMATOLOGY/ONCOLOGY [phone] [place] [address] (Wo rk) Social History Tobacco Use [...] mg by mouth 0 09/03 Tablet nightly. tretinoin (RETIN-A) 0.025 Apply topically to 45 [...] MD [facility] ER DR [address]-DERMAT [place], [place] [address] (Wo rk) documented as of this encounter Procedures Procedure Name Priority Date/Time Associated Diagnosis Comme nts MRI FACE WITH/WO Routine 04/15/2015 8:26 AM Melanoma Resul ts for this CONTRAST EST procedure are i n the results section. documented in this encounter Results MRI Face With/WO Contrast [...] cervical lymphadenopathy. Normal appearance of th e welfare eligibility interviewer space, parotid glands and mandible. No evidence [...] moderate paranasal sinus mucosal thickening. Procedure Note Palifka, Ya Felisha P, MD - 04/15/2015Form atting of this note [...] cervical lymphadenopathy. Normal appearance of th e welfare eligibility interviewer space, parotid glands and mandible. No evidence [...] may reflect chronic dissection. Evy Gramajo MD IM MRI ORDERABLES documented in this encounter Visit Diagnoses Diagnosis Melanoma Melanoma of skin, site unspecified documented in this encounter Administered Medications Inactive Administered Medications - up to 3 most recent administrations Medication Order MAR Action Action Date Dose Rate Site gadobutrol (GADAVIST) 1 mMol/mL Given 04/15/2015 8:04 AM EST 7 m Ls injection 7.03 mL 7.03 mL (0.1 mL/kg/dose ? 70.3 kg Order-specific weight), Intravenous, ONCE PRN, 1 dose, Starting on Sat04/15/15 at 0735, Until Sat04/15/15 at 0804, Per Protocol, Routine documented in this encounter Care Teams Latent Print Examiner Relationship Specialty Start Date End Date Leeanne Schultz MD PCP - General 10/28/13 [address] [place] [address] documented as of this encounter
--- OUTSIDE RECORDS SUMMARY | 2022-03-09 01:13 | XMS_ITS | Encounter Summary ---
:1945 Author Organization [place] [address] Care Team Providers Name Role Phone Leeanne Schultz MD Primary Care Provider Encounter Details Date Type Department Care Team Description 10/22/2014 Telephone Dermatology at [facility] Ni Zamudio MD [address] [facility] [place] [address] [facility]-DERMATOLOGY [phone] [place] [address] (Wo rk) Social History Tobacco Use Types [...] Visit Dermatology Edgar, Berlin J , MD [facility] DR DIANA CANAS-DERMAT [place], [place] [address] (Wo rk) documented as of this encounter Visit Diagnoses Not on filedocumented in this encounter Care Teams Instrumentation Instructor Relationship Specialty Start Date End Date Leeanne Schultz MD PCP - General 10/28/13 [address] [place] [address] documented as of this encounter
--- OUTSIDE RECORDS SUMMARY | 2022-03-09 01:13 | XMS_ITS | Encounter Summary ---
:1945 Author Organization [facility] [place] [address] Care Team Providers Name Role Phone Leeanne Schultz MD Primary Care Provider Reason for Visit Reason Comments Suture / Staple Removal Encounter Details Date Type Department Care Team Description 12/01/2014 Ancillary Appointment Dermatology at [facility] MD [place] [address] [place] [address] [facility]-DERMATOLGY [place], [place] [address] Social History Tobacco Use Types [...] [facility] [address] DIANA CANAS-DERMAT [place], [place] [address] (Wo rk) documented as of this encounter Visit Diagnoses Not on filedocumented in this encounter Care Teams Papier Mache Molder Relationship Specialty Start Date End Date Leeanne Schultz MD PCP - General 10/28/13 [address] [place] [address] documented as of this encounter
--- OUTSIDE RECORDS SUMMARY | 2022-03-09 01:13 | XMS_ITS | Encounter Summary ---
:1945 Author Organization [facility] [place] [address] Care Team Providers Name Role Phone Mira Marino MD Primary Care Provider Reason for Visit Reason Comments Skin Check Encounter Details Date Type Department Care Team Description 07/25/2011 Follow-Up Dermatology Ni Zamudio MD [place] (granuloma annulare) (Primary Dx); [facility] [place] (actinic keratosis) [address] [place] [id number] [facility] [phone] RD-DERMATOLOGY [place] [address] (Wo rk) Social History Tobacco Use Types [...] August 2007, she had MIS treated in [place] ? Right lateral thigh. 6. 10/2006 Right [...] changes: Ni Zamudio MD Section of Dermatology [facility] documented in this encounter Plan of Treatment Upcoming Encounters Date Type Specialty Care Team Description 03/14/2022 Office Visit Dermatology [place] Edgar MD [facility] DR DAINA CANAS-DERMAT [place], [place] [address] (Wo rk) documented as of this encounter Visit Diagnoses Diagnosis [place] (granuloma annulare) - Primary Other specified erythematous condition [place] (actinic keratosis) Actinic keratosis documented in this encounter Care Teams Pump Operator Byproducts Relationship Specialty Start Date End Date Mira Marino MD PCP - General 04/18/10 10/27/13 HOSPITALIST SERVICES [address] [place] [address] [place] [address] documented as of this encounter
--- OUTSIDE RECORDS SUMMARY | 2022-03-09 01:13 | XMS_ITS | Encounter Summary ---
:1945 Author Organization [facility] [address] Care Team Providers Name Role Phone Leeanne Schultz MD Primary Care Provider Reason for Visit Reason Onset Date Comments Referral 10/13/2013 Encounter Details Date Type Department Care Team Description 10/13/2013 Telephone Orthopaedics at [facility] Donnell Leiva MD Referral [facility] [place] [place] [address] ORTHOPAEDIC SURGERY [phone] [place], [place] [address] (Wo rk) Social History Tobacco Use Types Packs/Day Years Used Date Former Smoker Sex Assigned at Date Recorded Female 10/02/2020 6:58 PM EDT documented as of this encounter Miscellaneous Notes Telephone Encounter - Cheyenne Hernandez - 10/13/2013 1:21 PM EDT Ask patient to verify the following: Full name: Leeanne Bush : 1945 Phone number: [phone] (home) Mailing address: [address] [facility] [address] 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 ALMOST A YEAR Has anyone ever seen you before for this issue? YES Have you had any of the following studies for this issue? ?? X-Ray YES - [place] ?? MRI YES - [facility] ?? CT Scan ?? LABS PODIATRISTS DR. PEREZ - [facility] - PH. [phone] DR. SPENCER MODI - [facility] - winter DR. SERGEI PATTON [facility] Have you seen an Orthopaedic surgeon for the this issue? Have you ever had surgery for this issue? ONLY R FOOT - If YES and different than above: Who performed surgery? DR. SERGEI CARTER Where did you have the surgery (facility)? [facility] When? 2003 Phone # Fax# If patient is implanted with hardware fixation or joint prosthesis retrieve OPERATIVE REPORT and IMPLANT STICKERS. documented in this encounter Plan of Treatment Upcoming Encounters Date Type Specialty Care Team Description 03/14/2022 Office Visit Dermatology [place] Edgar MD [facility] DR DIANA CANAS-DERMAT [place], [place] [address] (Wo rk) documented as of this encounter Visit Diagnoses Not on filedocumented in this encounter Care Teams Sustainment Logistics Analyst Relationship Specialty Start Date End Date Leeanne Schultz MD PCP - General 10/28/13 [address] [place] [address] documented as of this encounter
--- OUTSIDE RECORDS SUMMARY | 2022-03-09 01:13 | XMS_ITS | Encounter Summary ---
:1945 Author Organization [facility] [place] [address] Care Team Providers Name Role Phone Leeanne Schultz MD Primary Care Provider Encounter Details Date Type Department Care Team Description 07/30/2014 Ancillary Appointment Dermatology at [facility] [address] MD [address] [place] [address] [facility] FLORESITA-DERMATOLOGY [place], [place] [address] Social History Tobacco Use Types [...] [place] Edgar MD [facility] ER DR DIANA MEDINA-DERMAT [place], [place] [address] (Wo rk) documented as of this encounter Visit Diagnoses Not on filedocumented in this encounter Care Teams Hydrator Operator Relationship Specialty Start Date End Date Leeanne Schultz MD PCP - General 10/28/13 [address] [place] [address] documented as of this encounter
--- OUTSIDE RECORDS SUMMARY | 2022-03-09 01:13 | XMS_ITS | Encounter Summary ---
:1945 Author Organization [facility] [place] [address] Care Team Providers Name Role Phone Kajal Schultz MD Primary Care Provider Reason for Visit Reason Comments Procedure melanoma - left lateral arm Encounter Details Date Type Department Care Team Description 11/19/2014 Procedure visit Dermatology at [facility] Ni Zamudio, Melanoma (Primary Road Dx) [address] [place], [place] CENTER [address] [facility] [phone] RD-DERMATOLOGY [place] [address] Social History Tobacco Use Types Packs/Day Years [...] Ni Zamudio MD during the day at [phone] Nurse: Mica [phone] After 5 PM and on weekends, please call the hospital number , and ask for the Any Commodity Buyer specification writer. 2 documented in this encounter Progress Notes [...] scar. Pathology Report: Rec Date: 10/15/2014 LOC: [facility] SURGICAL PATHOLOGY ---Pathologic Diagnosis--- A - Skin, [...] 2. Procedure Notes: Surgeon: Ni Zamudio MD Venue Coordinator:Mica Patton LPN A. Excision of lesion, excision [...] [facility] [address] DIANA CANAS-DERMAT [place], [place] [address] (Wo rk) Scheduled Orders Name [...] Component Value Ref Test Analysis Performed At [facility] Range Method Time Signature Surgical CERNER Pathology ? [facility] Report ? Provider: ?? LORNA, NI M ? Pt. Name: ?? HAJA ER, KAJAL Ureña ? Acc #: ?[id number] ? Pt. ? Col Date: ?? 5 [...] adjacent to scar at biopsy s e [id number] ? Clinical Diagnosis: ? Melanoma Specimen (Source) Anatomical Collection Method Collection Time Re ceived Time Location / / Volume Laterality 11/19/2014 4:42 PM EDT Ni Zamudio MD PATHOLOGY/CYTOLOGY ORDERABLE S Performing Organization Address [facility]/ZIP Code Phon e Number [address] [facility] Specimen to Pathology (NON-OR) (11/19/2014 4:21 PM EDT) Specimen Anatomical Collection Method Collection Time Receive d Time (Source) Location / / Volume Laterality AP Specimen 11/19/2014 4:21 PM 201 5 4:21 EDT PM EDT Narrative CERNER MILLENNIUM - 11/19/2014 4:21 PM E DT Specimen requisition ordered. ??Separate Pathology report to follow Ni Zamudio MD PATHOLOGY/CYTOLOGY ORDERABLE S Performing Organization Address [facility]/ZIP [facility] [place] [address] CERNER MILLENNIUM documented in this encounter Visit Diagnoses Diagnosis Melanoma - Primary Melanoma of skin, site unspecified documented in this encounter Care Teams Geometry Tutor Relationship Specialty Start Date End Date Kajal Schultz MD PCP - General 10/28/13 [address] [place] [address] documented as of this encounter
--- OUTSIDE RECORDS SUMMARY | 2022-03-09 01:13 | XMS_ITS | Encounter Summary ---
:1945 Author Organization [facility] [place] [address] Care Team Providers Name Role Phone Leeanne Schultz MD Primary Care Provider Reason for Referral MRI/CAT Scan (Routine) - Closed Specialty Diagnoses / Procedures Referred By Contact Refer red To Contact Radiology Diagnoses Melanoma Evy Gramajo MD [facility] Rad Ct Scan Procedures PET/CT Standard Plus Extremities and Head [facility] HEMATOLOGY/[place] [address] [place] [address] Referral ID Status Reason Start Date Expiration Date Visits Requ ested Visits Authorized [id number] Closed 01/26/2015 01/26/2016 1 1 Encounter Details Date Type Department Care Team Description 01/24/2015 Orders Only Hematology and Evy Gramajo Melanoma (Primary Dx) Oncology at [facility] [place] [address] HEMATOLOGY/ONCOLOG [phone] Y DEPT [place], [place] [address] Social History Tobacco Use Types [...] [facility] ER DR DIANA CANAS-DERMAT [place], [place] [address] (Wo rk) documented as of this encounter Results (ABNORMAL) PET/CT Standard Plus Extremities and Head (02/04/2015 9:52 AM EDT) Anatomical Region Laterality Modality Positron Emission To mography (PET) Specimen (Source) Anatomical Location Collection Method / Collectio n Time Received Time / Laterality Volume Impressions 02/04/2015 2:04 PM EDT IMPRESSION: 1. ??Focus of FDG activity at the inspector motor vehicles ior tongue. This could be due to [...] calculus. Thank you for referring this patient [facility]. This report was reviewed by Mehnaz Saenz at 02/04/2015 2:04 PM Narrative 02/04/2015 2:04 PM EDT EXAMINATION: PET/CT STANDARD WITH EXTREMITIES AND HEAD CLINICAL HISTORY: melanoma TECHNIQUE: Following IV injection of 18- yhxcpm-8-wynjnzqycmkc (FDG) a standard uptake of approximately 60 [...] melanoma TECHNIQUE: Following IV injection of 18- cfvyjl-8-ntjjiuoxxajd (FDG) a standard uptake of approximately 60 [...] calculus. Thank you for referring this patient [facility]. This report was reviewed by Mehnaz Saenz at 02/04/2015 2:04 PM Evy Gramajo MD IMG PET ORDERABLES documented in this encounter Visit Diagnoses Diagnosis Melanoma - Primary Melanoma of skin, site unspecified Melanoma Melanoma of skin, site unspecified documented in this encounter Care Teams Messenger Floorperson Relationship Specialty Start Date End Date Leeanne Schultz MD PCP - General 10/28/13 [address] [place] [address] documented as of this encounter
--- OUTSIDE RECORDS SUMMARY | 2022-03-09 01:13 | XMS_ITS | Encounter Summary ---
:1945 [place] [address] Care Team Providers Name Role Phone Kajal Schultz MD Primary Care Provider Reason for Visit Reason Comments Skin Check Encounter Details Date Type Department Care Team Description 06/30/2014 Follow-Up Dermatology at [place] Lucas MD Skin lesion (Primary Dx); [facility] History of melanoma; [address] History of basal cell cancer; [place] [address] [facility] [place] (actinic keratosis); [phone] RD-DERMATOLOGY Seborrheic keratosis [place], [place] [address] (Wo rk) Social History Tobacco [...] Excised 7. She grew up in [place] with a history of extensive sun exposure. [...] call for further advice and possible evaluation. -[facility], [place] Patient instructed to return to clinic [...] encounter. Ni Zamudio MD Section of Dermatology [facility] documented in this encounter Plan of Treatment Upcoming Encounters Date Type Specialty Care Team Description 03/14/2022 Office Visit Dermatology [place] Edgar MD [facility] ER [address] DIANA MEDINA-DERMAT [place] [address] (Wo rk) documented as of this encounter [...] Ref Test Analysis Performed At [facility] Range Method Time Signature Surgical CERNER Pathology ? [facility] Report ? Provider: ?? NI ZAMUDIO ? Pt. Name: ?? HAJA ER, KAJAL Ureña ? Acc #: ?[id number] ? Pt. ? Col Date: ?? 5 [...] ? Pathologic TNM Codes: ?? pT1a ? [facility] ? Provider: ?? NI ZAMUDIO ? Pt. Name: ?? HAJA ER, KAJAL Ureña ? Acc #: ?[id number] ? Pt. ? Col Date: ?? 5 [...] ? Sections/Processing: Inked, bisected. (T1) ??cjl ? [facility] ? Provider: ?? NI ZAMUDIO ? Pt. Name: ?? HAJA CLARK, KAJAL Ureña ? Acc #: ?[id number] ? Pt. ? Col Date: ?? 5 [...] MD PATHOLOGY/CYTOLOGY ORDERABLE S Performing Organization Address City/[facility]/ZIP Code Phon e Number [address] [facility] Specimen to Pathology (NON-OR) (06/30/2014 3:18 PM EST) Specimen Anatomical Collection Method Collection Time Receive d Time (Source) Location / / Volume Laterality AP Specimen 06/30/2014 3:18 PM 201 5 3:18 EST PM EST Narrative CERNER MILLENNIUM - 06/30/2014 3:[address] Specimen requisition ordered. ??Separate Pathology report to follow Ni Zamudio MD PATHOLOGY/CYTOLOGY ORDERABLE S Performing Organization Address City/[facility]/[place] [address] [employer] documented in this encounter Visit Diagnoses Diagnosis Skin lesion - Primary Unspecified disorder of skin and subcuta neous tissue History of melanoma Personal history of malignant melanoma o f skin History of basal cell cancer Personal history of other malignant neop lasm of skin [place] (actinic keratosis) Actinic keratosis Seborrheic keratosis Other seborrheic keratosis documented in this encounter Care Teams Tab Machine Operator Relationship Specialty Start Date End Date aKjal Schultz MD PCP - General 10/28/13 [address] [place] [address] documented as of this encounter
--- OUTSIDE RECORDS SUMMARY | 2022-03-09 01:13 | XMS_ITS | Encounter Summary ---
:1945 [place] [address] Care Team Providers Name Role Phone Mira Marino MD Primary Care Provider Reason for Visit Reason Comments Skin Check Encounter Details Date Type Department Care Team Description 04/15/2013 Follow-Up Dermatology at [facility] Gro[place] Zamudio MD Skin lesion (Primary Dx); [facility] [place] (actinic keratosis) [address] [place] [address] [facility] [phone] RD-DERMATOLOGY [place], [place] [address] (Wo rk) Social History Tobacco [...] carac vs. Ln2. Pt is leaving for [place] until August, will schedule her for when [...] encounter. Ni Zamudio MD Section of Dermatology [facility] documented in this encounter Plan of Treatment Upcoming Encounters Date Type Specialty Care Team Description 03/14/2022 Office Visit Dermatology [place] Edgar MD [facility] DR DIANA CANAS-DERMAT [place], [place] [address] (Wo rk) Scheduled Orders Name [...] Component Value Ref Test Analysis Performed At [facility] gist Range Method Time Signature Surgical CERNER Pathology ? [facility] Report ? Provider: ?? NI ZAMUDIO ? Pt. Name: ?? HAJA CLARK, KAJAL Ureña ? Acc #: ?[id number] ? Pt. ? Col Date: ?? 04/15/20 [...] 3mm punch (1) ? Clinical History: ? [facility] ? Provider: ?? NI ZAMUDIO ? Pt. Name: ?? HAJA CLARK, KAJAL Ureña ? Acc #: ?[id number] ? Pt. ? Col Date: ?? 04/15/20 [...] MD PATHOLOGY/CYTOLOGY ORDERABLE S Performing Organization Address City/[facility]/ZIP [place] [address] [facility] [employer] Specimen to Pathology (NON-OR) (04/15/2013 1:50 PM EST) Specimen Anatomical Collection Method Collection Time Receive d Time (Source) Location / / Volume Laterality AP Specimen 04/15/2013 1:50 PM 3 1:50 EST PM EST Narrative CERNER MILLENNIUM - 04/15/2013 1:[address] Specimen requisition ordered. ??Separate Pathology report to follow Ni Zamudio MD PATHOLOGY/CYTOLOGY ORDERABLE S Performing Organization Address City/[facility] [place] [address] [employer] documented in this encounter Visit Diagnoses Diagnosis Skin lesion - Primary Unspecified disorder of skin and subcuta neous tissue [place] (actinic keratosis) Actinic keratosis documented in this encounter Care Teams Occupational Health Nurse Manager Relationship Specialty Start Date End Date Mira Marino MD PCP - General 04/18/10 10/27/13 HOSPITALIST SERVICES [address] [place] [address] [place] [address] documented as of this encounter
--- OUTSIDE RECORDS SUMMARY | 2022-03-09 01:14 | XMS_ITS | Encounter Summary ---
:1945 [place] [address] Care Team Providers Name Role Phone Mira Marino MD Primary Care Provider Encounter Details Date Type Department Care Team Description 04/18/2010 Follow-Up Dermatology Arnaldo Hansen [place] [address] DERMATOLOGY DEPT. [phone] [place], [place] [address] (Wo rk) Social History Tobacco Use Types Packs/Day Years Used Date Never Assessed Sex Assigned at Date Recorded Female 10/02/2020 6:58 PM EDT documented as of this encounter Plan of Treatment Upcoming Encounters Date Type Specialty Care Team Description 03/14/2022 Office Visit Dermatology [place] Edgar MD [facility] ER DR DIANA CANAS-DERMAT [place], [place] [address] (Wo rk) documented as of this encounter Visit Diagnoses Not on filedocumented in this encounter Care Teams Section Supervisor Relationship Specialty Start Date End Date Mira Marino MD PCP - General 04/18/10 10/27/13 HOSPITALIST SERVICES [address] [place] [address] [address] [place], [place] [id number] documented as of this encounter
--- OUTSIDE RECORDS SUMMARY | 2022-03-09 01:14 | XMS_ITS | Encounter Summary ---
:1945 Author Organization [facility] [place] [address] Care Team Providers Name Role Phone Mira Marino MD Primary Care Provider Encounter Details Date Type Department Care Team Description 09/12/2010 Abstract Dermatology Elisa Ortez, [place] [address] Social History Tobacco Use Types Packs/Day Years Used Date Never Assessed Sex Assigned at Date Recorded Female 10/02/2020 6:58 PM EDT documented as of this encounter Plan of Treatment Upcoming Encounters Date Type Specialty Care Team Description 03/14/2022 Office Visit Dermatology [place] Edgar MD [facility] DR DIANA CANAS-DERMAT [place], [place] [address] (Wo rk) documented as of this encounter Visit Diagnoses Not on filedocumented in this encounter Care Teams Agricultural Real Estate Agent Relationship Specialty Start Date End Date Mira Marino MD PCP - General 04/18/10 10/27/13 HOSPITALIST SERVICES [address] [place] [address] [address] [place] [id number] documented as of this encounter
--- OUTSIDE RECORDS SUMMARY | 2022-03-09 01:17 | XMS_ITS | Encounter Summary ---
:1945 Author Organization [facility] Address [address] [place] [address] Care Team Providers Name Role Phone Marifer Marino OSORIO Primary Care Provider Encounter Details Date Type Department Care Team Description 01/09/2018 Results Only [facility]- PRISM Tania Rey, [address] [address] (Wo rk) Social History Tobacco Use Types Packs/Day Years Used Date Never Assessed Sex Assigned at Date Recorded Not on file documented as of this encounter Plan of Treatment Not on filedocumented as of this encounter Procedures Procedure Name Priority Date/Time Associated Diagnosis Comme [facility] SURGICAL PATHOLOGY Routine 01/09/2018 16:51 Resul ts for this EDT procedure are i n the results section. documented in this encounter Results SURGICAL PATHOLOGY (01/09/2018 16:51 EDT) Pathology Report: SURGICAL PATHOLOGY REPORT [facility] Reports generated via electronic interface contain karl ginal data; LABORATORY however they are lacking the format of the original re port. SERVICES Caution should be taken when reading/interpreting unfo rmatted reports. Name: ? LEEANNE BUSH ? Accession #: ? [id number] ? : ? 1945 (Age: 8 1) [...] Number [facility] [address] [place] [address] SERVICES documented in this encounter Visit Diagnoses Not on filedocumented in this encounter Care Teams Oil Burner Journeyman Relationship Specialty Start Date End Date Marifer Marino NP PCP - General 11/29/08 1 [place], [place] [address] documented as of this encounter
--- OUTSIDE RECORDS SUMMARY | 2022-03-09 01:17 | XMS_ITS | Encounter Summary ---
:1945 Author Organization [facility] Address [address] [place] [address] Care Team Providers Name Role Phone Marifer Marino NP Primary Care Provider Shmuel Soni MD Primary Care Provider Unavailable Encounter Details Date Type Department Care Team Description 08/16/1999 Hospital Encounter [facility] - Darrius Lemons MD [address] [facility], [facility] [address] [place] [address] Other Unknown, Provider, [address] [place], [place] [id number] Social History Tobacco Use Types Packs/Day Years Used Date Never Assessed Sex Assigned at Date Recorded Not on file documented as of this encounter Plan of Treatment Not on filedocumented as of this encounter Visit Diagnoses Not on filedocumented in this encounter Care Teams Retail Associate Manager Bilingual Relationship Specialty Start Date End Date Marifer Marino NP PCP - General 11/29/08 1 [place], [place] [address] Shmuel Soni MD PCP - General 11/01/08 11/28/08 documented as of this encounter
--- OUTSIDE RECORDS SUMMARY | 2022-03-09 01:17 | XMS_ITS | Encounter Summary ---
:1945 Author Organization [facility] Address [address] [place] [address] Care Team Providers Name Role Phone Unavailable Primary Care Provider Unavailable Encounter Details Date Type Department Care Team Description 08/20/2000 Hospital Encounter [facility]- Orville Mckee Jr., [facility] [address] [address] [address] [phone] [address] [place] [address] (Wo rk) Social History Tobacco Use Types Packs/Day Years Used Date Never Assessed Sex Assigned at Date Recorded Not on file documented as of this encounter Discharge Disposition Disposition Code Departure Means Destination Auto Discharge documented in this encounter Plan of Treatment Not on filedocumented as of this encounter Procedures Procedure Name Priority Date/Time Associated Diagnosis Comme [facility] SURGICAL PATHOLOGY Routine 08/20/2000 0:00 EDT [...] ? LEEANNE BUSH ? Accession #: ? [id number] ? : ? 1945 (Age: 54) ??F [...] Gross Description: ? Received in formalin labelled Umbarger and cy st left neck is an [...] Organization Address City/State/ZIP Code Phon e Number [facility] [address] [place] [address] SERVICES [facility] [address] [place] [address] documented in this encounter Visit Diagnoses Not on filedocumented in this encounter
--- OUTSIDE RECORDS SUMMARY | 2022-03-09 01:17 | XMS_ITS | Encounter Summary ---
:1945 Author Organization [facility] Address [address] [place] [address] Care Team Providers Name Role Phone Ned Marifer AC Primary Care Provider Shmuel Soni MD Primary Care Provider Unavailable Encounter Details Date Type Department Care Team Description 11/21/2005 Before PRISM Converted [facility] - Tisha Natarajan, Visit (Maple) Maple conversion [facility]NP [address] [place] [address] Social History Tobacco Use Types Packs/Day Years Used Date Never Assessed Sex Assigned at Date Recorded Not on file documented as of this encounter Progress Notes Camilo, Conv Hospital Clerk - 05/09/2009 2224 EST OF SURGICAL ONCOLOGY - [facility] PROGRESS/FOLLOWUP NOTE - 11/21/2005 P: Status post wide excision of a [place] Level III / Bres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 Imperial node biopsy negative for metastatic disease. S: [...] PARADISE Khan P - kd Job ID: [id number] Document ID: [id number] cc: Shmuel Soni MD Cancer Data Registry documented in this encounter Plan of Treatment Not on filedocumented as of this encounter Visit Diagnoses Not on filedocumented in this encounter Care Teams Industrial Welder Relationship Specialty Start Date End Date Marifer Marino NP PCP - General 11/29/[address] [place] [address] Shmuel Soni MD PCP - General 11/01/08 11/28/08 documented as of this encounter
--- OUTSIDE RECORDS SUMMARY | 2022-03-09 01:17 | XMS_ITS | Encounter Summary ---
:[address] [facility] Address [address] [place] [address] Care Team Providers Name Role Phone Unavailable Primary Care Provider Unavailable Encounter Details Date Type Department Care Team Description 11/21/2005 Hospital Encounter [facility] [address] [place] [address] Social History Tobacco Use Types Packs/Day Years Used Date Never Assessed Sex Assigned at Date Recorded Not on file documented as of this encounter Discharge Disposition Disposition Code Departure Means Destination Auto Discharge documented in this encounter Plan of Treatment Not on filedocumented as of this encounter Visit Diagnoses Not on filedocumented in this encounter
--- OUTSIDE RECORDS SUMMARY | 2022-03-09 01:17 | XMS_ITS | Encounter Summary ---
:1945 Author Organization [facility] Address [address] [place] [address] Care Team Providers Name Role Phone Marifer Marino OSORIO Primary Care Provider Encounter Details Date Type Department Care Team Description 11/30/2008 Hospital Encounter [facility] Hai Hobson MD Perioperative Services - [address] [address] Social History Tobacco Use Types [...] SERVICE DATE: 11/30/2008 SURGEON: Marlon Hobson MD INFORMATION MANAGEMENT OFFICER: PREOPERATIVE DIAGNOSIS Right index mucocyst. POSTOPERATIVE DIAGNOSIS [...] MD - Marlon Hobson MD A - [facility] Job ID: [id number] Document ID: [id number] cc: Mira Marino MD documented in this encounter Miscellaneous Notes Scanned Note-Null - InpatientPhysician MD - 12/06/2008 1330 EDT canned Note-Null - Inpatient, MD Love - 12/06/2008 1330 EDT documented in this encounter Plan of Treatment Not on filedocumented as of this encounter Visit Diagnoses Not on filedocumented in this encounter Care Teams Software Configuration Specialist Relationship Specialty Start Date End Date Marifer Marino NP PCP - General 11/29/[address] [place] [address] documented as of this encounter
--- OUTSIDE RECORDS SUMMARY | 2022-03-09 01:17 | XMS_ITS | Encounter Summary ---
:1945 Author Organization [facility] Address [address] [place] [address] Care Team Providers Name Role Phone Ned Marifer AC Primary Care Provider Shmuel Soni MD Primary Care Provider Unavailable Encounter Details Date Type Department Care Team Description 04/12/2000 Hospital Encounter [facility] - Abel Casas MD [address] [facility] [address] [place] [address] Other Unknown, Provider, [address] [place] [address] Social History Tobacco Use Types Packs/Day Years Used Date Never Assessed Sex Assigned at Date Recorded Not on file documented as of this encounter Plan of Treatment Not on filedocumented as of this encounter Procedures Procedure Name Priority Date/Time Associated Diagnosis Comme [facility] SURGICAL PATHOLOGY Routine 04/12/2000 0:00 EST [...] ? LEEANNE BUSH ? Accession #: ? [id number] ? : ? 1945 (Age: 54) ??F [...] and entirely submitted in one cassette. ??(Dr. Rosenberg)/[facility] End of Report Specimen Performing Organization Address City/State/ZIP Code Phon e Number [facility] [address] [place] [address] SERVICES [facility] [address] [place] [address] documented in this encounter Visit Diagnoses Not on filedocumented in this encounter Care Teams Demand Planner Relationship Specialty Start Date End Date Marifer Marino NP PCP - General 11/29/08 1 [place], [place] [address] Shmuel Soni MD PCP - General 11/01/08 11/28/08 documented as of this encounter
--- OUTSIDE RECORDS SUMMARY | 2022-03-09 01:17 | XMS_ITS | Encounter Summary ---
:1945 Author Organization [facility] Address [address] [place] [address] Care Team Providers Name Role Phone Ned Marifer AC Primary Care Provider Shmuel Soni MD Primary Care Provider Unavailable Encounter Details Date Type Department Care Team Description 10/28/2000 Hospital Encounter [facility] - Abel Casas MD 30 [facility] [address] [place] [address] Other Unknown, Provider, [address] [place] [address] Social History Tobacco Use Types [...] ? LEEANNE BUSH ? Accession #: ? [id number] ? : ? 1945 (Age: 55) ??F [...] Phon e Number [facility] [address] [place] [address] SERVICES [facility] [address] [place] [address] documented in this encounter Visit Diagnoses Not on filedocumented in this encounter Care Teams Wallpaper Scraper Relationship Specialty Start Date End Date Marifer Marino NP PCP - General 11/29/08 1 [place] [id number] Shmuel Soni MD PCP - General 11/01/08 11/28/08 documented as of this encounter
--- OUTSIDE RECORDS SUMMARY | 2022-03-09 01:17 | XMS_ITS | Encounter Summary ---
:1945 Author Organization [facility] Address [address] [place] [address] Care Team Providers Name Role Phone Marifer Marino NP Primary Care Provider Shmuel Soni MD Primary Care Provider Unavailable Encounter Details Date Type Department Care Team Description 09/02/2003 Hospital Encounter [facility] - Caroline Farrell MD [address] [place] [address] [address] [place] [address] (Wo rk) Social History Tobacco Use Types Packs/Day Years Used Date Never Assessed Sex Assigned at Date Recorded Not on file documented as of this encounter Plan of Treatment Not on filedocumented as of this encounter Visit Diagnoses Not on filedocumented in this encounter Care Teams Nurse Case Management Relationship Specialty Start Date End Date Marifer Marino NP PCP - General 11/29/08 1 [place], [place] [address] Shmuel Soni MD PCP - General 11/01/08 11/28/08 documented as of this encounter
--- OUTSIDE RECORDS SUMMARY | 2022-03-09 01:17 | XMS_ITS | Encounter Summary ---
:1945 Author Organization [facility] Address [address] [place] [address] Care Team Providers Name Role Phone Marifer Marino NP Primary Care Provider Shmuel Soni MD Primary Care Provider Unavailable Encounter Details Date Type Department Care Team Description 11/02/2002 Results Only [facility] - Mónica Crystal COMPUTER NUMERICAL CONTROL PROGRAMMER conversion [address] [place] [address] Social History Tobacco Use Types Packs/Day Years [...] ? LEEANNE BUSH ? Accession #: ? [id number] : ? 1945 (Age: 57) ??F ?Collect Date: ? 10/06 Location: ? [facility] ? Receive Date : ? 11/04/2002 Provider: ?MÓNICA MURRAY COMPUTER NUMERICAL CONTROL PROGRAMMER Copy to: ? Specimen/Source: ?ThinPrep Pap Test, [...] Organization Address City/State/ZIP Code Phon e Number [facility] [address] [place] [address] SERVICES [facility] [address] [place] [address] documented in this encounter Visit Diagnoses Not on filedocumented in this encounter Care Teams Special Agent Group Insurance Relationship Specialty Start Date End Date Marifer Marino NP PCP - General 11/29/08 1 [place] [address] Shmuel Soni MD PCP - General 11/01/08 11/28/08 documented as of this encounter
--- OUTSIDE RECORDS SUMMARY | 2022-03-09 01:17 | XMS_ITS | Encounter Summary ---
:1945 Author Organization [facility] Address [address] [place] [address] Care Team Providers Name Role Phone Ned Marifer AC Primary Care Provider Shmuel Soni MD Primary Care Provider Unavailable Encounter Details Date Type Department Care Team Description 08/18/1999 Results Only [facility] Boo Lemons MD Surgical Oncology - [address], [address], Level [address] [place] [address] [place], [place] [phone] (Wo rk) Social History Tobacco Use Types Packs/Day Years Used Date Never Assessed Sex Assigned at Date Recorded Not on file documented as of this encounter Plan of Treatment Not on filedocumented as of this encounter Procedures Procedure Name Priority Date/Time Associated Comments Diagnosis CREATININE Routine 08/18/1999 12:51 Results for this EDT procedure are i n the results section. HEMAGRAM & DIFF Routine 08/18/1999 12:51 Results for this EDT procedure are i n the results section. BUN Routine 08/18/1999 12:51 Results for this EDT procedure are i n the results section. CALCIUM Routine 08/18/1999 12:51 Results for this EDT procedure are i n the results section. HEPATIC FUNCTION Routine 08/18/1999 12:51 Results for this PANEL (ALB,ALK EDT procedure are in PHOS,ALT,AST,DBIL,TOT the re sults ERICA,TOT PROT) section. ELECTROLYTES Routine 08/18/1999 12:51 Results for this EDT procedure are i n the results section. documented in this encounter Results ELECTROLYTES (08/18/1999 12:51 EDT) Pathologist Sig nature Sodium 142 136 - 145 mEq/L [facility] Potassium 4.4 3.5 - 5.0 mEq/L [facility] Chloride 100 96 - 110 mEq/L [facility] CO2 30 24 - 30 mEq/L [facility] Specimen Performing Organization Address [facility]/ZIP [facility] Phon e Number [facility] [address] [place] [address] SERVICES [facility] [address] [place] [address] (ABNORMAL) LIVER FUNCTION TESTS (08/18/1999 12:51 EDT) Pathologist Sig nature Albumin 4.6 3.0 - 5.5 g/dl [facility] Total Protein 7.5 6.0 - 8.5 g/dl [facility] Total Alkaline 63 38 - 126 U/L [facility] Phosphatase ALT 13 (L) 15 - 75 U/L [facility] AST 20 8 - 50 U/L [facility] Unconjugated Bilirubin 0.4 0.1 - 1.1 mg/dl [facility] Conjugated Bilirubin 0.0 0.0 - 0.3 mg/dl [facility] Bilirubin, Total 0.7 0.2 - 1.3 mg/dl [facility] Specimen Performing Organization Address [facility] Phon e Number [facility] [address] [place] [address] SERVICES [facility] [address] [place] [address] CREATININE (08/18/1999 12:51 EDT) Pathologist Sig nature Creatinine 0.8 0.7 - 1.5 mg/dl [facility] Specimen Performing Organization Address City/[facility]/ZIP Code Phon e Number [facility] [address] [place] [address] SERVICES [facility] [address] [place] [address] (ABNORMAL) HEMAGRAM & DIFF (08/18/1999 12:51 EDT) Pathologist Sig nature WBC 5.82 4.0 - 12.4 K/cmm [facility] RBC 4.44 3.86 - 5.04 M/cmm [facility] Hemoglobin 13.9 11.6 - 15.2 gm/dl [facility] HCT 41.4 34.9 - 44.4 % [facility] MCV 93 81 - 98 fl [facility] MCH 31.2 26.7 - 33.3 pg [facility] MCHC 33.5 32.1 - 35.9 gm/dl [facility] PLT 383 (H) 141 - 320 K/cmm [facility] RDW-CV 12.5 11.7 - 14.6 % [facility] Neutrophils 55.6 45.5 - 79.7 % [facility] Lymphocytes 34.6 15.0 - 46.8 % [facility] Monocytes 8.2 1.8 - 12.0 % [facility] Eosinophils 1.3 0.6 - 6.9 % [facility] Basophils 0.3 0.2 - 1.4 % [facility] ABS Neutrophils 3.24 2.20 - 8.85 K/cmm [facility] ABS Lymphs 2.01 1.09 - 3.30 K/cmm [facility] ABS Monocytes 0.47 0.1 - 0.8 K/cmm [facility] ABS Eosinophils 0.08 0.03 - 0.61 K/cmm [facility] ABS Basophils 0.02 0.01 - 0.11 K/cmm [facility] Type of Diff: Automated [facility] Specimen Performing Organization Address City/State/ZIP Code Phon e Number [facility] [address] [place] [address] SERVICES [facility] [address] [place] [address] CALCIUM (08/18/1999 12:51 EDT) Pathologist Sig nature Calcium 9.4 8.5 - 10.5 mg/dl [facility] Calculated Calcium 9.2 8.5 - 10.5 mg/dl [facility] Specimen Performing Organization Address City/[facility]/ZIP Code Phon e Number [facility] [address] [place] [address] SERVICES [facility] [address] [place] [address] BUN (08/18/1999 12:51 EDT) Pathologist Sig nature BUN 13 10 - 26 mg/dl [facility] Specimen Performing Organization Address City/State/ZIP Code Phon e Number [facility] [address] [place] [address] SERVICES [facility] [address] [place] [address] documented in this encounter Visit Diagnoses Not on filedocumented in this encounter Care Teams Board Of Education Secretary Relationship Specialty Start Date End Date Marifer Marino NP PCP - General 11/29/08 1 [place], [place] [id number] Shmuel Soni MD PCP - General 11/01/08 11/28/08 documented as of this encounter
--- OUTSIDE RECORDS SUMMARY | 2022-03-09 01:17 | XMS_ITS | Encounter Summary ---
:1945 Author Organization [facility] Address [address] [place] [address] Care Team Providers Name Role Phone Ned Marifer AC Primary Care Provider Shmuel Soni MD Primary Care Provider Unavailable Encounter Details Date Type Department Care Team Description 11/27/2001 Hospital Encounter [facility] - Abel Casas MD [address] [facility] [address] [place] [address] Other Unknown, Provider, [address] [place] [address] Social History Tobacco Use Types [...] ? LEEANNE BUSH ? Accession #: ? [id number] ? : ? 1945 (Age: 56) ??F [...] Gross Description: ? Received in formalin labelled [place] and left upper chest is a shave biopsy measuring 0.6 x 0.5 by less than 0.1 cm. ??The surface is slightly irregular and yellow. ??The specimen is trisected and entirely submitted in one cassette. ??(Dr. Kinney)/[facility] End of Report Specimen Performing Organization Address City/State/ZIP Code Phon e Number [facility] [address] [place] [address] SERVICES [facility] [address] [place] [address] documented in this encounter Visit Diagnoses Not on filedocumented in this encounter Care Teams Bus Attendant Relationship Specialty Start Date End Date Marifer Marino NP PCP - General 11/29/08 1 [place], [place] [phone] Shmuel Soni MD PCP - General 11/01/08 11/28/08 documented as of this encounter
--- OUTSIDE RECORDS SUMMARY | 2022-03-09 01:17 | XMS_ITS | Encounter Summary ---
:1945 Author Organization [facility] Address [address] [place] [address] Care Team Providers Name Role Phone NedLidiaMarifer NP Primary Care Provider Shmuel Soni MD Primary Care Provider Unavailable Encounter Details Date Type Department Care Team Description 02/27/2006 Before PRISM Converted [facility] - Tisha Natarajan, Visit (Maple) Maple conversion CFNP [address] [place] [address] Social History Tobacco Use Types Packs/Day Years Used Date Never Assessed Sex Assigned at Date Recorded Not on file documented as of this encounter Progress Notes Camilo, Conv Dry Pan Operator - 04/30/2009 0141 EST OF SURGICAL ONCOLOGY - BREAST [facility] PROGRESS/FOLLOWUP NOTE - 02/27/2006 P: Status post August 1999 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 [place] node biopsy negative for metastatic disease. S: [...] her dermatology and melanoma follow-up done at [facility]. This is where she will be going in the near future for bladder surgery as well. It is closer to her home. She is reminded that she may certainly call here with any questions, any problems. Signed by PARADISE Khan 03/04/2006 11:18 Nikos Rocha CFNP PARADISE Khan - PARADISE Khan A - diego Job ID: [id number] Document ID: [id number] cc: Shmuel Soni MD Cancer Data Registry Job ID: [id number] Document ID: [id number] cc: Shmuel Soni MD Cancer Data Registry documented in this encounter Plan of Treatment Not on filedocumented as of this encounter Visit Diagnoses Not on filedocumented in this encounter Care Teams Wood Piler Relationship Specialty Start Date End Date Marifer Marino NP PCP - General 11/29/[address] [place] [address] Shmuel Soni MD PCP - General 11/01/08 11/28/08 documented as of this encounter
--- OUTSIDE RECORDS SUMMARY | 2022-03-09 01:17 | XMS_ITS | Encounter Summary ---
:1945 Author Organization [facility] Address [address] [place] [address] Care Team Providers Name Role Phone Ned Marifer AC Primary Care Provider Shmuel Soni MD Primary Care Provider Unavailable Encounter Details Date Type Department Care Team Description 09/01/2003 Hospital Encounter [facility] - Albert Farrell MD Other [address] [place] [address] [address] [place] [address] (Wo rk) Social History Tobacco Use Types Packs/Day Years Used Date Never Assessed Sex Assigned at Date Recorded Not on file documented as of this encounter Plan of Treatment Not on filedocumented as of this encounter Procedures Procedure Name Priority Date/Time Associated Diagnosis [facility] SURGICAL PATHOLOGY Routine 09/01/2003 0:00 EDT Re [...] ? LEEANNE BUSH ? Accession #: ? [id number] ? : ? 1945 (Age: 57) ??F [...] a mast cell lesion. The predominance of QK21-[id number] cells support s the granulomatous nature of the infiltrate. ??Dr. Ren Hoyt has reviewed this case. ??(Dr. Branch)/[facility] Microscopic Description: ? Sections consist of a [...] l, [place]), presumably representing Langerhans cells. (Dr. Branch)/[facility] ? NOTE: ??One or more of the [...] eagents' ??performance characteristics have been determined by [facility]. ??This laboratory is certified unde r [...] Number [facility] [address] [place] [address] SERVICES [facility] [address] [place] [phone] documented in this encounter Visit Diagnoses Not on filedocumented in this encounter Care Teams Power Originator Relationship Specialty Start Date End Date Ready, Marifer, [place] PCP - General 11/29/08 [address] [place] [address] Shmuel Soni MD PCP - General 11/01/08 11/28/08 documented as of this encounter
--- OUTSIDE RECORDS SUMMARY | 2022-03-09 01:17 | XMS_ITS | Encounter Summary ---
:1945 Author Organization [facility] Address [address] [place] [address] Care Team Providers Name Role Phone Ned Marifer AC Primary Care Provider Shmuel Soni MD Primary Care Provider Unavailable Encounter Details Date Type Department Care Team Description 10/16/1999 Hospital Encounter [facility] - Abel Casas MD [address] [facility] [address] [place] [address] Other Unknown, Provider, [address] [place] [address] Social History Tobacco Use Types [...] ? LEEANNE BUSH ? Accession #: ? [id number] ? : ? 1945 (Age: 54) ??F [...] Gross Description: ? Received in formalin labelled [place] and left leg is a callahan, circular 0.3 cm skin punch excised to a depth of 0.3 cm. ??The specimen is entirely submitted in one cassette. ??(Carola Bustillo)/[facility] End of Report Specimen Performing Organization Address City/State/ZIP Code Phon e Number [facility] [address] [place] [address] SERVICES [facility] [address] [place] [address] documented in this encounter Visit Diagnoses Not on filedocumented in this encounter Care Teams Serologist Relationship Specialty Start Date End Date Marifer Marino NP PCP - General 11/29/08 [address] [place], [place] [address] Shmuel Soni MD PCP - General 11/01/08 11/28/08 documented as of this encounter
--- OUTSIDE RECORDS SUMMARY | 2022-03-09 01:17 | XMS_ITS | Encounter Summary ---
:1945 Author Organization [facility] Address [address] [place] [address] Care Team Providers Name Role Phone Marifer Marino NP Primary Care Provider Shmuel Soni MD Primary Care Provider Unavailable Encounter Details Date Type Department Care Team Description 01/23/2006 Results Only [facility] - Mónica Crystal CERTIFIED APPLIANCE SERVICE TECHNICIAN conversion [address] [place] [address] Social History Tobacco Use Types Packs/Day Years [...] ? LEEANNE BUSH ? Accession #: ? [id number] : ? 1945 (Age: 60) ??F ?Collect Date: ? 01/05 Location: ? [facility] ? Receive Date : ? 01/25/2006 Provider: ?MÓNICA MURRAY CERTIFIED APPLIANCE SERVICE TECHNICIAN Copy to: ? Specimen/Source: ? ThinPrep Pap Test, Vagina, processed on AdAdapted ThinPrep Imaging System, with manual evaluation Last [...] e Number [facility] [address] [place] [address] SERVICES [facility] [address] [place] [address] documented in this encounter Visit Diagnoses Not on filedocumented in this encounter Care Teams Sheet Cutting Operator Relationship Specialty Start Date End Date Marifer Marino NP PCP - General 11/29/08 [address] [place] [address] Shmuel Soni MD PCP - General 11/01/08 11/28/08 documented as of this encounter
--- OUTSIDE RECORDS SUMMARY | 2022-03-09 01:17 | XMS_ITS | Encounter Summary ---
:[address] [facility] Address [address] [place] [address] Care Team Providers Name Role Phone Marifer Marino NP Primary Care Provider Encounter Details Date Type Department Care Team Description 11/14/2021 Lab Requisition [facility] Outr Resulting Lab, Pathology & Laboratory Provider [facility] [address] [place] [address] Social History Tobacco Use Types [...] Pathologist Sig nature IgE 15 <158 IU/mL [facility] SERVICES Specimen Blood - Venous blood (substance) Performing Organization Address City/State/ZIP Code Phon e Number [facility] [address] [place] [address] SERVICES documented in this encounter Visit Diagnoses Not on filedocumented in this encounter Care Teams Pharmacy Technician Trainee Relationship Specialty Start Date End Date Marifer Marino NP PCP - General 11/29/08 1 [place], [place] [phone] documented as of this encounter
--- OUTSIDE RECORDS SUMMARY | 2022-03-09 01:17 | XMS_ITS | Encounter Summary ---
:[address] [facility] Address [address] [place] [address] Care Team Providers Name Role Phone Marifer Marino OSORIO Primary Care Provider Encounter Details Date Type Department Care Team Description 11/25/2020 Lab Requisition [facility] Fidel Engel Epigastric pain; Pathology & MD Brennan Heartburn; Laboratory Medicine - [address] Other chest pain [facility] [address] [place] [phone] (Wo rk) Social History Tobacco Use Types [...] 12:14 EDT) Note to Patient The following [facility] pathology results CENTER have been interpreted LABORATORY by your pathologist SERVICES and may be available to you before your health provider has had the opportunity to review them. Please allow time for your provider to receive these results and explore management options, if applicable. Final Diagnosis A. DUODENUM, BIOPSY: [facility] - No significant pathologic abnormality C ENTER LABORATORY B. DUODENUM, BULB, BIOPSY: SERVICES - No significant pathologic abnormality C. STOMACH, ANTRUM, BIOPSY: - Mild reactive (chemical) gastropathy D. STOMACH, BODY, BIOPSY: - No significant pathologic abnormality Attestation By the signature [facility] Electronica lly below, the attending CENTER [...] erosions; clinical diagnosis code: R10.13, R12, R07.89 [facility] SERVICES Gross Description A. [facility] Received in formalin pat d with [...] D1. FALGUNI GUERRA(ASCP) 11/25/2020 8:28 Performing Lab [facility] SERVICES Scanned Images [facility] SERVICES Specimen Tissue - Entire stomach (body structure) Tissue specimen (specimen) - Entire smal l intestine (body structure) Tissue specimen (specimen) - Entire stom ach (body structure) Tissue specimen (specimen) - Entire stom ach (body structure) Performing Organization Address City/State/ZIP Code [facility] e Number [facility] [address] [place] [address] SERVICES documented in this encounter Visit Diagnoses Diagnosis Epigastric pain Abdominal pain, epigastric Heartburn Other chest pain documented in this encounter Care Teams Card Cutter Helper Relationship Specialty Start Date End Date Mraifer Marino NP PCP - General 11/29/08 [address] [place], [place] [phone] documented as of this encounter
--- OUTSIDE RECORDS SUMMARY | 2022-03-09 01:17 | XMS_ITS | Encounter Summary ---
:[address] [facility] Address [address] [place] [address] Care Team Providers Name Role Phone Lidia Marinohleen OSORIO Primary Care Provider Encounter Details Date Type Department Care Team Description 05/21/2020 Lab Requisition [facility] Outr Resulting Lab, Pathology & Laboratory Provider [facility] [address] [place] [address] Social History Tobacco Use Types [...] (05/20/2020 13:10 EST) Tissue <1.2 <4.0 U/mL [facility] Transglutaminase Comment: CENTER Antibody IGA A negative result may be due to IgA deficiency and does not rule out celiac disease. LABORATORY SERVICES ? Negative: ??<4.0 U/mL ? Weak Positive: ??4.0 - 10.0 U/mL ? Positive: ??>10.0 U/mL Results were obtained with leah darden [employer] QUANTA Lite R h-tTG IgA KENDALL assay on the Quanlight DSX. IgA 135 85 - 499 [facility] mg/dL CENTER LABORATORY SERVICES Celiac Disease Negative Serology. [facility] Interpretation Celiac disease CENTER unlikely. LABORATORY Approximately 10% of SERVICES patients with celiac disease are seronegative. Patients who are already adhering to a gluten-free diet may also be seronegative. If celiac disease is highly clinically suspected, referral to gastroenterology for additional evaluation is recommended. Specimen Blood - Venous blood (substance) Performing Organization Address City/State/ZIP Code Phon e Number [facility] [address] [place] [address] SERVICES documented in this encounter Visit Diagnoses Not on filedocumented in this encounter Care Teams Chemical Sales Representative Relationship Specialty Start Date End Date Marifer Marino NP PCP - General 11/29/[address] [place] [address] documented as of this encounter
--- OUTSIDE RECORDS SUMMARY | 2022-03-09 01:17 | XMS_ITS | Encounter Summary ---
:1945 Author Organization [facility] Address [address] [place] [address] Care Team Providers Name Role Phone Unavailable Primary Care Provider Unavailable Encounter Details Date Type Department Care Team Description 06/07/2000 Hospital Encounter [facility] - Mara Natarajan CFNP Other Unknown, Provider, [address] [place] [address] 45 Social History Tobacco Use Types Packs/Day Years [...] ? LEEANNE BUSH ? Accession #: ? [id number] : ? 1945 (Age: 54) ??F ?Collect [...] a Ronaldo' s level III malignant melanoma ([id number] ) is not available for review. ??The current material shows no evidence of metastatic disease, however, clin ical correlation is recommended. ??(Dr. Camejo)/[facility] Document reviewed and electronically signed by: ? [...] Organization Address City/State/ZIP Code Phon e Number [facility] [address] [place] [phone] SERVICES [facility] [address] [place] [address] documented in this encounter Visit Diagnoses Not on filedocumented in this encounter
--- OUTSIDE RECORDS SUMMARY | 2022-03-09 01:17 | XMS_ITS | Encounter Summary ---
:1945 Author Organization [facility] Address [address] [place] [address] Care Team Providers Name Role Phone Unavailable Primary Care Provider Unavailable Encounter Details Date Type Department Care Team Description 02/27/2006 Hospital Encounter [facility] Tisha Natarajan, [place] Unknown, Provider, [address] [place] [address] Social History Tobacco Use Types Packs/Day Years [...] EN ? LAB Reports generated via electr Mindieic interface contain original data; ? however they are lacking the format of the original report. ? Caution should be taken when reading/interpreting unformatted reports. ? Name: ? LEEANNE BUSH ? Accession #: ? [id number] ? : ? 1945 (Age: 62) ??F ?Collect Date: ? 02/02/2008 ? Location: ? [facility] ? Receive Date: ? 02/02/2008 ? Provider: ?CHERYL M RO WLETT PROCESS MANAGER ? Copy to: ? Specimen/Source: ? Pap [...] Organization Address City/State/ZIP Code Phon e Number [facility] [address] [place] [address] SERVICES [facility] [address] [place] [address] documented in this encounter Visit Diagnoses Not on filedocumented in this encounter
--- OUTSIDE RECORDS SUMMARY | 2022-03-09 01:17 | XMS_ITS | Encounter Summary ---
:1945 Author Organization [facility] Address [address] [place] [address] Care Team Providers Name Role Phone Marifer Marino NP Primary Care Provider Shmuel Soni MD Primary Care Provider Unavailable Encounter Details Date Type Department Care Team Description 02/28/2005 Hospital Encounter [facility] - Tamera Natarajan nc, [facility] [place] [address] [place] [address] Social History Tobacco Use Types Packs/Day Years Used Date Never Assessed Sex Assigned at Date Recorded Not on file documented as of this encounter Plan of Treatment Not on filedocumented as of this encounter Visit Diagnoses Not on filedocumented in this encounter Care Teams Patient Transportation Driver Relationship Specialty Start Date End Date Marifer Marino NP PCP - General 11/29/08 [address] [place], [place] [address] Shmuel Soni MD PCP - General 11/01/08 11/28/08 documented as of this encounter
--- OUTSIDE RECORDS SUMMARY | 2022-03-09 01:17 | XMS_ITS | Encounter Summary ---
:1945 Author Organization [facility] Address [address] [place] [address] Care Team Providers Name Role Phone Marifer Marino NP Primary Care Provider Shmuel Soni MD Primary Care Provider Unavailable Encounter Details Date Type Department Care Team Description 10/21/2000 Results Only [facility] - Mónica Crystal HEEL SPLITTER conversion [address] [place] [address] Social History Tobacco Use Types Packs/Day Years [...] ? LEEANNE BUSH ? Accession #: ? [id number] : ? 1945 (Age: 55) ??F ?Collect Date: ? 10/04 Location: ? [facility] ? Receive Date : ? 10/23/2000 Provider: ?MÓNICA MURRAY HEEL SPLITTER Copy to: ? Specimen/Source: ?ThinPrep Pap Test, [...] Organization Address City/State/ZIP Code Phon e Number [facility] [address] [place] [address] SERVICES [facility] [address] [place] [address] documented in this encounter Visit Diagnoses Not on filedocumented in this encounter Care Teams Cloth Laminating Supervisor Relationship Specialty Start Date End Date Marifer Marino NP PCP - General 11/29/08 [address] [place] [address] Shmuel Soni MD PCP - General 11/01/08 11/28/08 documented as of this encounter
--- OUTSIDE RECORDS SUMMARY | 2022-03-09 01:17 | XMS_ITS | Encounter Summary ---
:[address] [facility] Address [address] [place] [address] Care Team Providers Name Role Phone Ned Marifer AC Primary Care Provider Shmuel Soni MD Primary Care Provider Unavailable Encounter Details Date Type Department Care Team Description 01/15/2005 Results Only [facility] - Nelsy Boogie od, Samantha Hollins, CHIEF DESIGN ENGINEER conversion [address] [place] [phone] (Wo rk) Social History Tobacco Use Types [...] ? LEEANNE BUSH ? Accession #: ? [id number] : ? 1945 (Age: 59) ??F ?Collect Date: ? 01/04 Location: ? [facility] ? Receive Date : ? 01/17/2005 Provider: ?SAMANTHA BOND CHIEF DESIGN ENGINEER Copy to: ? Specimen/Source: ? ThinPrep Pap Test, Vagina, processed on [employer] ThinPrep Imaging System, with manual evaluation Last [...] Organization Address City/State/ZIP Code Phon e Number [facility] [address] [place] [address] SERVICES [facility] [address] [place] [address] documented in this encounter Visit Diagnoses Not on filedocumented in this encounter Care Teams Field Crop I Farmworker Relationship Specialty Start Date End Date Marifer Marino NP PCP - General 11/29/08 1 [place] [phone] Shmuel Soni MD PCP - General 11/01/08 11/28/08 documented as of this encounter
--- OUTSIDE RECORDS SUMMARY | 2022-03-09 01:17 | XMS_ITS | Encounter Summary ---
:1945 Author Organization [facility] Address [address] [place] [address] Care Team Providers Name Role Phone Marifer Marino NP Primary Care Provider Shmuel Soni MD Primary Care Provider Unavailable Encounter Details Date Type Department Care Team Description 11/08/1999 Results Only [facility] - Mónica Crystal SOLUTIONS EXECUTIVE CLOUD SALES conversion [address] [place] [address] Social History Tobacco Use Types Packs/Day Years [...] ? LEEANNE BUSH ? Accession #: ? [id number] : ? 1945 (Age: 54) ??F ?Collect Date: ? 09/1999 Location: ? [facility] ? Receive Date : ? 11/10/1999 Provider: ?MÓNICA MURRAY SOLUTIONS EXECUTIVE CLOUD SALES Copy to: ? Specimen/Source: ?ThinPrep Pap Test, [...] Address City/State/ZIP Code Phon e Number [facility] [address] [place] [address] SERVICES [facility] [address] [place] [address] documented in this encounter Visit Diagnoses Not on filedocumented in this encounter Care Teams Change Room Attendant Relationship Specialty Start Date End Date Marifer Marino NP PCP - General 11/29/08 1 [place] [address] Shmuel Soni MD PCP - General 11/01/08 11/28/08 documented as of this encounter
--- OUTSIDE RECORDS SUMMARY | 2022-03-09 01:17 | XMS_ITS | Encounter Summary ---
:1945 Author Organization [facility] Address [address] [place] [address] Care Team Providers Name Role Phone Marifer Marino NP Primary Care Provider Shmuel Soni MD Primary Care Provider Unavailable Encounter Details Date Type Department Care Team Description 10/22/2001 Results Only [facility] - Mónica Crystal AGRICULTURAL EXTENSION EDUCATOR conversion [address] [place] [address] Social History Tobacco Use Types Packs/Day Years [...] ? LEEANNE BUSH ? Accession #: ? [id number] : ? 1945 (Age: 56) ??F ?Collect Date: ? 10/04 Location: ? [facility] ? Receive Date : ? 10/24/2001 Provider: ?MÓNICA MURRAY AGRICULTURAL EXTENSION EDUCATOR Copy to: ? Specimen/Source: ?ThinPrep Pap Test, [...] Organization Address City/State/ZIP Code Phon e Number [facility] [address] [place] [address] SERVICES [facility] [address] [place] [address] documented in this encounter Visit Diagnoses Not on filedocumented in this encounter Care Teams Steel Barrel Reamer Relationship Specialty Start Date End Date Marifer Marino NP PCP - General 11/29/08 1 [place] [phone] Shmuel Soni MD PCP - General 11/01/08 11/28/08 documented as of this encounter
--- OUTSIDE RECORDS SUMMARY | 2022-03-09 01:17 | XMS_ITS | Encounter Summary ---
:[address] [facility] Address [address] [place] [address] Care Team Providers Name Role Phone Ned Marifer AC Primary Care Provider Shmuel Soni MD Primary Care Provider Unavailable Encounter Details Date Type Department Care Team Description 12/11/2005 Results Only [facility] - Raoul Dorado MD conversion [address] [facility] [address] [place] [phone] Social History Tobacco Use Types Packs/Day Years [...] ? LEEANNE BUSH ? Accession #: ? [id number] ? : ? 1945 (Age: 60) ??F [...] Organization Address City/State/ZIP Code Phon e Number [facility] [address] [place] [address] SERVICES [facility] [address] [place] [address] documented in this encounter Visit Diagnoses Not on filedocumented in this encounter Care Teams Robotics Systems Engineer Relationship Specialty Start Date End Date Marifer Marino NP PCP - General 11/29/08 1 [place] [address] Shmuel Soni MD PCP - General 11/01/08 11/28/08 documented as of this encounter
--- OUTSIDE RECORDS SUMMARY | 2022-03-09 01:17 | XMS_ITS | Encounter Summary ---
:[address] [facility] Address [address] [place] [address] Care Team Providers Name Role Phone Marifer Marino NP Primary Care Provider Shmuel Soni MD Primary Care Provider Unavailable Encounter Details Date Type Department Care Team Description 12/30/2003 Results Only [facility] - Mónica Crystal TOOL INSPECTOR conversion [address] [place] [address] Social History Tobacco Use Types Packs/Day Years [...] ? LEEANNE BUSH ? Accession #: ? [id number] : ? 1945 (Age: 58) ??F ?Collect Date: ? 12/05 Location: ? [facility] ? Receive Date : ? 12/31/2003 Provider: ?MÓNICA MURRAY TOOL INSPECTOR Copy to: ? Specimen/Source: ?ThinPrep Pap Test, [...] Phon e Number [facility] [address] [place] [address] SERVICES [facility] [address] [place] [address] documented in this encounter Visit Diagnoses Not on filedocumented in this encounter Care Teams Ore Feeder Relationship Specialty Start Date End Date Marifer Marino NP PCP - General 11/29/08 1 [place] [id number] Shmuel Soni MD PCP - General 11/01/08 11/28/08 documented as of this encounter
--- OUTSIDE RECORDS SUMMARY | 2022-03-09 01:17 | XMS_ITS | Encounter Summary ---
:[address] [facility] Address [address] [place] [address] Care Team Providers Name Role Phone Lidia Marinohleen OSORIO Primary Care Provider Encounter Details Date Type Department Care Team Description 11/23/2009 Results Only [facility] Deep Bravo MD Laboratory Services - [address] [place] [address] [address] [facility] [place] [address] [phone] Social History Tobacco Use Types Packs/Day Years [...] REPORT ? [facility] Reports generated via [email or web address] interface contain original data; ? LAB however they are lacking the format of the original report. ? Caution should be taken when reading/interpreting unformatted reports. ? Name: ? JUDITH, KAJAL R ? Accession #: ? [id number] ? : ? 1945 (Age: 64) ??F [...] changes. The findin gs are non specific. ??Medical Administrative Specialist sections of ? this case have been reviewed at intradepartmental consultation conference. ??(Dr. Storey)/[facility] ? Document reviewed and electr onically signed [...] as (B1) through (B3). ? Received in [facility]'s fixat mejia labelled Kajal Bush and #3 bx random ? rectum are four biopsies wh ich vary in size from 0.2 x 0.2 x 0.2 cm up to 0.5 x 0.2 x 0.1 cm. ??The specimen s are submitted intact as (C1) and (C2). ??(ERICK ? Scarlet)/debbien ? End of Report ? Specimen Performing Organization Address City/[facility] Code Phon e Number [facility] [address] [place] [address] SERVICES [facility] [address] [place] [address] documented in this encounter Visit Diagnoses Not on filedocumented in this encounter Care Teams Disk Sharpener Relationship Specialty Start Date End Date Marifer Marino NP PCP - General 11/29/08 1 [place] [address] documented as of this encounter
--- OUTSIDE RECORDS SUMMARY | 2022-03-09 01:17 | XMS_ITS | Encounter Summary ---
:1945 Author Organization [facility] Address [address] [place] [address] Care Team Providers Name Role Phone Ned Marifer AC Primary Care Provider Shmuel Soni MD Primary Care Provider Unavailable Encounter Details Date Type Department Care Team Description 02/27/2006 Results Only [facility] - Albert Elizondo MD conversion [address] [facility] [address] [place] [address] [place], [place] [phone] (Wo rk) Social History Tobacco Use Types [...] ? LEEANNE BUSH ? Accession #: ? [id number] ? : ? 1945 (Age: 60) ??F [...] descent. ??There is papillary dermal fibroplasia. ??([place]i [place])/[facility] Document reviewed and electronically signed by: [place] [...] City/State/ZIP Code Phon e Number [facility] [address] [place] [address] SERVICES [facility] [address] [place] [address] documented in this encounter Visit Diagnoses Not on filedocumented in this encounter Care Teams Chicken And Fish Cleaner Relationship Specialty Start Date End Date Marifer Marino NP PCP - General 11/29/08 1 [place], [place] [address] Shmuel Soni MD PCP - General 11/01/08 11/28/08 documented as of this encounter
--- OUTSIDE RECORDS SUMMARY | 2022-03-09 01:17 | XMS_ITS | Encounter Summary ---
:1945 Author Organization [facility] Address [address] [place] [address] Care Team Providers Name Role Phone Marifer Marino NP Primary Care Provider Shmuel Soni MD Primary Care Provider Unavailable Encounter Details Date Type Department Care Team Description 01/27/2007 Results Only [facility] - Mónica Crystal COMMERCIAL OCEAN CLAMMER conversion [address] [place] [address] Social History Tobacco Use Types Packs/Day Years [...] (01/27/2007 0:00 EDT) Pathology Report: CYTOPATHOLOGY REPORT [facility] Reports generated via electronic interface contain karl ginal data; however they are lacking the format of the original re port. Caution should be taken when reading/interpreting unfo rmatted reports. Name: ? LEEANNE BUSH ? Accession #: ? [id number] : ? 1945 (Age: 61) ??F ?Collect Date: ? 01/05 Location: ? [facility] ? Receive Date : ? 01/27/2007 Provider: ?MÓNICA MURRAY COMMERCIAL OCEAN CLAMMER Copy to: ? Specimen/Source: ? ThinPrep Pap Test, Vagina, processed on [employer] ThinPrep Imaging System, with manual evaluation Last [...] Organization Address City/State/ZIP Code Phon e Number [facility] [address] [place] [address] SERVICES [facility] [address] [place] [address] documented in this encounter Visit Diagnoses Not on filedocumented in this encounter Care Teams Lubricating Specialist Relationship Specialty Start Date End Date Marifer Marino NP PCP - General 11/29/08 1 [place] [address] Shmuel Soni MD PCP - General 11/01/08 11/28/08 documented as of this encounter
--- OUTSIDE RECORDS SUMMARY | 2022-03-09 01:17 | XMS_ITS | Encounter Summary ---
:1945 Author Organization [facility] Address [address] [place] [address] Care Team Providers Name Role Phone Marifer Marino NP Primary Care Provider Shmuel Soni MD Primary Care Provider Unavailable Encounter Details Date Type Department Care Team Description 08/15/1999 Hospital Encounter [facility] - Darrius Gonzalez MD [address] [facility] [address] [place] [address] Other Unknown, Provider, [address] [place] [address] Social History Tobacco Use Types Packs/Day Years Used Date Never Assessed Sex Assigned at Date Recorded Not on file documented as of this encounter Plan of Treatment Not on filedocumented as of this encounter Procedures Procedure Name Priority Date/Time Associated Diagnosis Comme [facility] SURGICAL PATHOLOGY Routine 08/15/1999 15:00 Resul [...] ? LEEANNE BUSH ? Accession #: ? [id number] ? : ? 1945 (Age: 53) ??F [...] s. Specimen(s) Received: TISSUE SUBMITTED: ? [facility] [id number] (11) CLINICAL DATA: ? Melanoma Gross Description: GROSS: ? Eleven slides are received for review from [facility], ? one each labelled [id number] A1, [id number] A2 , [id number] A3, ? [id number] A4, [id number] A5, [id number] A5 r ecut, [id number] ? A6, [id number] B1, [id number] B2, [id number] B3, [id number] ? B4. ?? End of Report Specimen Performing Organization Address City/State/ZIP Code Phon e Number [facility] [address] [place] [address] SERVICES [facility] [address] [place] [address] documented in this encounter Visit Diagnoses Not on filedocumented in this encounter Care Teams Casing Machine Operator Relationship Specialty Start Date End Date Marifer Marino NP PCP - General 11/29/08 1 [place] [address] Shmuel Soni MD PCP - General 11/01/08 11/28/08 documented as of this encounter
--- OUTSIDE RECORDS SUMMARY | 2022-03-09 01:17 | XMS_ITS | Encounter Summary ---
:1945 Author Organization [facility] Address [address] [place] [address] Care Team Providers Name Role Phone Unavailable Primary Care Provider Unavailable Encounter Details Date Type Department Care Team Description 04/11/2001 Hospital Encounter [facility] - Albert Farrell MD [address] [facility] [address] [place] [address] Other Unknown, Provider, [address] [place], [place] [address] Social History Tobacco Use Types Packs/Day Years [...] ? LEEANNE BUSH ? Accession #: ? [id number] ? : ? 1945 (Age: 55) ??F [...] and cords of similar melanocytes that show public relations account executive maturation with descent. ??T here is papillary [...] Gross Description: ? Received in formalin labelled [place] is a callahan curling 0.6 x 0.5 cm skin shave with an eccentric callahan- brown mottled 0.2 x 0.2 cm macule. ??The specimen is trisected and entirely submitted in one cassette. ??(Lexie Avila)/[facility] End of Report Specimen Performing Organization Address City/State/ZIP Code Phon e Number [facility] [address] [place] [address] SERVICES [facility] [address] [place] [address] documented in this encounter Visit Diagnoses Not on filedocumented in this encounter
--- OUTSIDE RECORDS SUMMARY | 2022-03-09 01:17 | XMS_ITS | Encounter Summary ---
:1945 Author Organization [facility] Address [address] [place] [address] Care Team Providers Name Role Phone Ned Marifer AC Primary Care Provider Shmuel Soni MD Primary Care Provider Unavailable Encounter Details Date Type Department Care Team Description 08/16/1999 Results Only [facility] Kylie Gonzalez MD Surgical Oncology - [address], [address], [address] [place] [address] [place], [place] [phone] (Wo rk) Social History Tobacco Use Types Packs/Day Years Used Date Never Assessed Sex Assigned at Date Recorded Not on file documented as of this encounter Plan of Treatment Not on filedocumented as of this encounter Procedures Procedure Name Priority Date/Time Associated Diagnosis Comme [facility] SURGICAL PATHOLOGY Routine 08/16/1999 12:00 Resul ts [...] ? LEEANNE BUSH ? Accession #: ? [id number] ? : ? 1945 (Age: 53) ??F [...] TISSUE SUBMITTED: ? [facility] israel [id number] (1) CLINICAL DATA: ? Blue nevus Gross Description: GROSS: ? One slide is received for review from Dermatopa thology Laboratory ? [facility] labelled [id number]. ?? End of Report Specimen Performing Organization Address City/State/ZIP Code Phon e Number [facility] [address] [place] [address] SERVICES [facility] [address] [place] [address] documented in this encounter Visit Diagnoses Not on filedocumented in this encounter Care Teams Special Delivery Messenger Relationship Specialty Start Date End Date Marifer Marino NP PCP - General 11/29/08 1 [place] [id number] Shmuel Soni MD PCP - General 11/01/08 11/28/08 documented as of this encounter
--- OUTSIDE RECORDS SUMMARY | 2022-03-09 01:17 | XMS_ITS | Encounter Summary ---
:1945 Author Organization [facility] Address [address] [place] [address] Care Team Providers Name Role Phone Unavailable Primary Care Provider Unavailable Encounter Details Date Type Department Care Team Description 09/12/1999 Hospital Encounter [facility] [address] [facility] [address] [place] [address] [address] [phone] [address] [place] [address] (Wo rk) Social History Tobacco [...] ? KAJAL BUSH ? Accession #: ? [id number] ? : ? 1945 (Age: 53) ??F [...] ? material previously reviewed at our institution ([id number], S00- ? [id number]) from this anatomic site. ??The current wi [...] End of Report Specimen Performing Organization Address City/[facility] Phon e Number [facility] [address] [place] [address] SERVICES [facility] [address] [place] [address] NM INJECTION ONLY (09/12/1999 12:32 EDT) Anatomical [...] City/State/ZIP Code Phon e Number [facility] [address] [facility] [address] [facility] [address] [place], [place] [address] documented in this encounter Visit Diagnoses Not on filedocumented in this encounter
== END ==
PROVIDERS: PCP Family Medicine; Visit Provider Family Medicine
DX: Z78.0 Asymptomatic menopausal state (principal); Z13.820 Encounter for screening for osteoporosis; M85.89 Other specified disorders of bone density and structure, multiple sites
CPT/HCPCS: 77080

== ENCOUNTER 2022-12-01 12:20 | Emergency (ER) | payer MEDICARE, SELFPAY ==
[2022-12-01] VITALS (11 sets, daily range): BP systolic 126–161; BP diastolic 62–85; PULSE 66–81; RESP 10–24; TEMP 36.9; O2SAT 93–100
[2022-12-01] MEDS: Ondansetron 4 MG/2 ML VIAL IVP (12:30)
--- NOTE | 2022-12-01 12:30 | DI.CT_ITS ---
Exam(s) CT HEAD WO EXAM: CT HEAD WO CLINICAL HISTORY: head injury 2 hours ago, now profuse vomiting. TECHNIQUE: Imaging Protocol: Axial computed tomography images with coronal and sagittal reformatted images were created and reviewed COMPARISON: No exams were available for comparison FINDINGS: There is a large left frontal scalp hematoma. No evidence of subjacent skull fracture. There is inc idental mucosal thickening in both maxillary sinuses, not associated with acute fluid levels. Also s ome mucosal thickening in the sphenoid sinuses. Frontal sinuses are clear and without evidence of fl uid-blood. Mastoid air cells are clear. There is no evidence of intracranial hemorrhage, mass effect, or shift of midline structures. There are no extra-axial fluid collections. The ventricles are not enlarged or shifted and there is no blo od within the ventricular system nor within the basal cisterns. IMPRESSION: Prominent left forehead frontal region scalp hematoma. No skull fractures. No evidence of intracran ial hemorrhage at this time, intra nor extra-axial. If clinically indicated repeat CT scan can be pe rformed if patient does not improve. Discussed by myself with ER position. RADIATION DOSE DELIVERED: 685.31mGy.cm Total DLP DATA REPOSITORY: All CT scans at this facility are submitted to the National Radiology Data Registry (NRDR) Dose Index Registry (DIR) with the [employer] (ACR). RADIATION OPTIMIZATION: All CT scans at this facility use at least one of these dose optimization te chniques: automated exposure control; mA and/or kV adjustment per patient size (includes targeted exa ms where dose is matched to clinical indication); or iterative reconstruction.
--- OUTSIDE RECORDS SUMMARY | 2022-12-01 12:31 | XMS_ITS | Continuity of Care Document ---
Author Name Unknown Organization [facility] Ambulatory Clinics Address [address] [place] [address] Care Team Providers Care Railroad Carman Name Role Phone LEEANNE BUTCHER Primary Care Physician Encounter [facility] [id number] Date(s): 09/18/22 - 09/18/22 [facility] Ambulatory Clinics [address] [place], [place] [address] Encounter Diagnosis Trigger middle finger of right hand(Discharge Diagnosis) - 09/18/22 Discharge Disposition: Home or Self Care Attending Physician: Bria Trivedi [facility] CHIEF, Allergies, Adverse Reactions, Alerts Substance Reaction Severity Status shellfish hives / swollen throat Unknown Activ e Sinus Unknown Unknown Active Red Dye Unknown, suggested not to take as allergi c to shrimp Unknown Active Shrimp Hives, throat closes Unknown Active Functional Status 09/18/22 Other exposure to Infectious Disease Non e Medications albuterol 2.5 mg/3 mL (0.083%) inhalation solution 300 mL, USE 1 VIAL IN NEBULIZER EVERY 4 HOURS NEEDED, 0 Refill(s) Start Date: 09/18/22 Status: Ordered albuterol 5 mg/mL (0.5%) inhalation solution 2.5 mg = 0.5 mL, NEB, every 6 hr, PRN as needed for wheezing, # 30 mL, 0 Refill(s) Start Date: 09/18/22 Status: Ordered albuterol 90 mcg/inh aerosol inhaler 2 Unknown, 0 Refill(s) Start Date: 02/05/22 Status: Ordered amLODIPine 5 mg oral tablet 0.5 Unknown, 0 Refill(s) Start Date: 02/05/22 Status: Ordered azelastine 137 mcg/inh (0.1%) nasal spray BID, 1 Unknown, 0 Refill(s) Start Date: 02/05/22 Status: Ordered CeleBREX 100 mg oral capsule BID, 1 Unknown, 0 Refill(s) Start Date: 02/05/22 Status: Ordered CeleXA 20 mg oral tablet 1 Unknown, 0 Refill(s) Start Date: 02/05/22 Status: Ordered citalopram 40 mg oral tablet 0.5 Unknown, 0 Refill(s) Start Date: 02/05/22 Status: Ordered clonazePAM 1 mg oral tablet 1 Unknown, 0 Refill(s) Start Date: 02/05/22 Status: Ordered Home Nebulizer Supply, See instructions, # 1 EA, 0 Refill(s) Start Date: 02/05/22 Status: Ordered levothyroxine 137 mcg (0.137 mg) oral tablet 0 Refill(s) Start Date: 02/05/22 Status: Ordered Symbicort 160 mcg-4.5 mcg/inh inhalation aerosol 0 Refill(s) Start Date: 02/05/22 Status: Ordered Synthroid 137 mcg (0.137 mg) oral tablet 0 Refill(s) Start Date: 02/05/22 Status: Ordered Tums 500 mg oral tablet, chewable 500 mg = 1 tab, Chewed, BID, # 60 tab, 0 Refill(s) Start Date: 09/18/22 Status: Ordered Ventolin HFA 1 Unknown, 0 Refill(s) Start Date: 02/05/22 Status: Ordered Vitamin B12 50 mcg oral tablet 50 mcg = 1 tab, Oral, Daily, # 30 tab, 0 Refill(s) Start Date: 09/18/22 Status: Ordered Wellbutrin SR 150 mg/12 hours oral tablet, extended release 1 Unknown, 0 Refill(s) Start Date: 02/05/22 Status: Ordered zolpidem 10 mg oral tablet 0 Refill(s) Start Date: 02/05/22 Status: Ordered Problem List Condition Confirmation Course Effective Dates Status H ealth Status Informant Acute effect of ultraviolet radiation on normal skin Confirmed Active Allergic rhinitis due to animal hair and dander Confirmed Active Allergic rhinitis due to pollen Confirmed Active Cellulitis of face Confirmed Active Chronic bronchitis Confirmed Active Chronic ethmoidal sinusitis Confirmed Active Chronic frontal sinusitis Confirmed Active Chronic maxillary sinusitis Confirmed Active Chronic pain Confirmed Active Chronic sphenoidal sinusitis Confirmed Active 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 Confirmed Active Cough Confirmed Active Deviated nasal septum Confirmed Active Disorder of shoulder Confirmed Active Dysphagia Confirmed Active History of operative procedure on knee Confirmed Active Hypertrophy of nasal turbinates Confirmed Active Impacted cerumen in left ear Confirmed Active Impacted cerumen of bilateral ears Confirmed Active Irritable bowel syndrome Confirmed Active Keratosis Confirmed Active Leukoplakia of oral mucosa Confirmed Active Osteoarthritis of hip Confirmed Active Osteoarthritis of right hip joint Confirmed Active Plantar fasciitis Confirmed Active Posterior rhinorrhea Confirmed Active Sensorineural hearing loss, bilateral Confirmed Active Sinusitis Confirmed Active Trigger middle finger of right hand Confirmed Active Wheezing Confirmed Active Procedures Procedure Date Related Diagnosis Body Site Status Hysterectomy Completed Sling procedure of bladder neck Completed Total replacement of right knee joint Completed Vital Signs Most recent to oldest [Reference Range]: 1 Peripheral Pulse Rate [60-100 bpm] 67 bp m (09/18/22 12:56 PM) Blood Pressure [90-140/60-90 mmHg] 124/7 4mmHg (09/18/22 12:56 PM) Weight 65.32 kg (09/18/22 12:56 PM) Weight Measured (lbs) 144.006 lb (09/18/22 12:56 PM) Height 172.72 cm (09/18/22 12:56 PM) Height/Length Measured (inches) 68 inch (09/18/22 12:56 PM) BSA Measured 1.77 m2 (09/18/22 12:56 PM) Body Mass Index 21.9 kg/m2 (09/18/22 12:56 PM) Social History Social History Type Response Tobacco Never tobacco user T obacco Use:. Sex Hospital Discharge Instructions Follow Up Care 09/12/2022 14:21:57 With:Return to this practice Address: When: only if needed Physician Outpatient Note * Bria Trivedi [facility] CHIEF,: PERFORM Event Display: Office Clinic Note Physician Authored Date: [id number] LEEANNE WONG :1945 Age:76 years Sex:Female Visit Date:09/18/2022 Primary Care Physician: LEEANNE BUTCHER Chief Complaint Right middle finger pain History of Present Illness Leeanne is a very pleasant??76-year-old woman who returns to the office for follow-up of right long finger trigger finger. ??She has had this issue in the past, has had several injections.?? Her last injection was about 6 months ago. ??Her pain returned about a month ago. ??She describes pain and swelling at the??right long finger as well as triggering. ??No associated numbness or tingling. ??She would like another injection today.?? Otherwise she is feeling well and is very healthy and active. Review of Systems Constitutional:?No??fevers,?No??chills,?No??sweats Respiratory:?No??shortness of breath,?No??cough Cardiovascular:?No??Chest pain,?No??palpitations,?No??syncope Gastrointestinal:?Nonausea,?No??vomiting,?No??diarrhea Musculoskeletal:??No??back pain,??No??neck pain,??Positive for??right long finger pain,??No??musclepain,??Positive for??decreased range of motion right long finger Integumentary:?No??rash,?No??pruritus,?No??abrasions Neurologic: Alert & oriented X 4 Psychiatric:?No??anxiety,?No??depression Physical Exam Vitals & Measurements HR:??67??(Peripheral)?? BP:??124/74?? SpO2:??98%?? HT:??172.72??cm?? WT:??65.32??kg?? BMI:??21.9?? BSA:??1.77?? The patient is alert and oriented x3. ??Pleasant and cooperative. ??Well-dressed and well-groomed.?? Appears stated age and is well-nourished and well- developed.?? Examination of the??right hand reveals no deformity. ??Skin is intact. ??There is no erythema or warmth.?? No signs or symptoms of infection. ??Tender nodules palpable overlying the A1 yee of the long finger. ??Patient is able to make composite fist with ease and extend all fingers without difficulty. ??No triggering noted. ??There is mild swelling at the long finger. ??Skin is warm and pink with brisk capillary refill and sensation is intact distally. Procedure Risks, benefits and alternatives to this injection are discussed with the patient, verbal consent is obtained.?? Under standard, sterile technique, the palm of the right??hand??overlying the A1 yee of the??long finger??is meticulously prepped with alcohol x3. ??Then 40 mg of Kenalog combined with 1% lidocaine plain is injected without difficulty. ??The patient tolerated the injection very well??and a dry, sterile bandage is applied. ??Postinjection instructions are provided. Assessment/Plan 1.??Trigger middle finger of right hand??M65.331 Leeanne is a very pleasant 76-year-old woman with a symptomatic trigger finger of the right long finger. ??This has been an issue for her in the past and she has done very well with??injections. ??Her last injection was about 6 months ago and ultimately she would like another one today. ??However sheis now considering surgery.?? This is discussed with the patient and she is provided with patient education materials regarding trigger finger.?? She states that she will likely move forward with trigger finger release if her symptoms return.?? I will plan on seeing Leeanne back on an as-needed basis. ??She is in agreement with the above plan and is encouraged to contact the office anytime with questions or concerns. ??I spent 20 minutes in reviewing the record, seeing the patient and documenting in the medical record. Ordered: Kenalog-40, 40 mg, Intra-articular, Once, First Dose: 09/18/22 13:41:00 EDT, Stop Date: 09/18/22 13:41:00 EDT, Physician Stop, Routine ?? 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 Cough Deviated nasal septum Disorder of shoulder Dysphagia History of operative procedure on knee Hypertrophy of nasal turbinates Impacted cerumen in left ear Impacted cerumen of bilateral ears Irritable bowel syndrome Keratosis Leukoplakia of oral mucosa Osteoarthritis of hip Osteoarthritis of right hip joint Plantar fasciitis Posterior rhinorrhea Sensorineural hearing loss, bilateral Sinusitis Trigger middle finger of right hand Wheezing Historical No qualifying data Procedure/Surgical History ???Hysterectomy???Sling procedure of bladder neck???Total replacement of right knee joint Medications albuterol 2.5 mg/3 mL (0.083%) inhalation solution albuterol 5 mg/mL (0.5%) inhalation solution, 2.5 mg= 0.5 mL, NEB, every 6 hr, PRN albuterol 90 mcg/inh aerosol inhaler amLODIPine 5 mg oral tablet azelastine 137 mcg/inh (0.1%) nasal spray, BID CeleBREX 100 mg oral capsule, BID CeleXA 20 mg oral tablet citalopram 40 mg oral tablet clonazePAM 1 mg oral tablet Home Nebulizer, See instructions Kenalog-40, 40 mg, Intra-articular, Once levothyroxine 137 mcg (0.137 mg) oral tablet Symbicort 160 mcg-4.5 mcg/inh inhalation aerosol Synthroid 137 mcg (0.137 mg) oral tablet Tums 500 mg oral tablet, chewable, 500 mg= 1 tab, Chewed, BID Ventolin HFA Vitamin B12 50 mcg oral tablet, 50 mcg= 1 tab, Oral, Daily Wellbutrin SR 150 mg/12 hours oral tablet, extended release zolpidem 10 mg oral tablet Allergies Red Dye??(Unknown, suggested not to take as allergic to shrimp) Shrimp??(Hives, throat closes) Sinus??(Unknown) shellfish??(hives / swollen throat) Social History Electronic Cigarette/Vaping Electronic Cigarette Use: Never. Tobacco Never tobacco user Tobacco Use:. Electronically Signed on 09/18/22 01:42 PM Bria Trivedi APRN, Patient Care team information Care Team Personnel Name: LEEANNE BUTCHER Position: No Access Member Role: Primary Care Physician Address: Address: [address] [place] [id number] Care Team Related Persons Name: LISA WONG JR Address: Home [address] [place] [address] [facility]
--- NOTE | 2022-12-01 12:47 | ED.GENADUL_ITS ---
Discharge Plan Disposition Patient Disposition: Home Condition: Good Discharge Details Clinical Impression: Concussion Primary Care Provider: Leeanne Schultz V ED Provider: Amy Pagan Home Meds and New Rx's Prescriptions: New ondansetron 4 mg tablet,disintegrating 4 mg PO Q8H Qty: 5 0RF clonazepam [Klonopin] 0.5 mg tablet 0.5 mg PO DAILY PRNQty: 2 0RF Continued levalbuterol tartrate 45 mcg/actuation HFA aerosol inhaler 2 inh inhalation Q6H Qty: 15 11RF fluticasone propion-salmeterol [Advair HFA] 230-21 mcg/actuation HFA aerosol inhaler 2 puff inhalation BID Qty: 12 12RF cholecalciferol (vitamin D3) 25 mcg (1,000 unit) capsule 25 mcg PO DAILY budesonide-formoterol [Symbicort] 160-4.5 mcg/actuation HFA aerosol inhaler 2 puff inhalation BID Qty: 10.2 6RF doxycycline hyclate 100 mg capsule 100 mg PO BID Qty: 10 0RF azelastine 137 MCG/0.137 ML aerosol,spray 2 spry NS BID Metamucil 3.4 gram/5.4 gram powder 2 tsp PO DAILY Rx Instructions: mix into at least 4 oz water or juice before administering vitamin B complex Tablet 1 tab PO DAILY citalopram [Celexa] 40 MG tablet 40 mg PO .HS amlodipine 5 MG tablet 2.5 mg PO DAILY bupropion HCl 300 MG tablet extended release 24 hr 300 mg PO DAILY clonazepam [Klonopin] 0.5 MG tablet 0.5 mg PO PRN PRN levothyroxine [Euthyrox] 137 mcg tablet 137 mcg PO DAILY Patient Comments: TAKE 1 TABLET BY MOUTH ONCE DAILY No Action prednisone 10 mg tablet 10 mg PO DAILY Qty: 34 0RF Rx Instructions: Take 40mg (4 tablets) one a day for 4 days, 30mg (3 tablets) once a day for 3 days, 20mg (2 tablets) once a day for 3 days , 10mg (1 tablet) for 2 days, 5mg (0.5 tablets) for 2 days zolpidem 5 MG tablet 10 mg PO .HS Discharge Instructions Instructions: Concussion (ED) Additional Instructions: Call your primary care doctor on [place] to schedule an appointment to follow up on your visit today. You can take tylenol over the counter as needed for headache. Zofran was prescribed for pain. Return to the emergency department for new or worsening symptoms, including recurrent vomiting, worsening pain, numbness or weakness, or if you have any other concerns. Referrals: Leeanne Schultz MD [Primary Care Provider] - Medical Decision Making 77yo F not on anticoagulation presenting with vomiting after head injury. 2 hours prior to arrival fell from standing and struck her forehead on a bedpost, no loss of consciousness. Vomiting began 30 minutes ago. Took tylenol and clonzapam at home for headache and anxiety. On arrival appears distress, vomiting. Vital signs and physical exam reassuring; large hematoma to left forehead and small skin tear to left forearm, no other significant traumatic findings. No focal neurologic deficits. Vomiting likely related to head injury; concussion vs serious intracranial pathology including hemmoraghe. She felt well earlier in the day and has had no abdominal pain, not concerned for intrabdominal pathology, would not get abdominal imaging or labs. Given IV zofran on arrival. Head CT ordered and independently reviewed; large left sided hematoma, no evident skull fracture, no intracranial bleed; agree with radiology read below. On return from CT given IV compazine and IV ativan for headache/nausea/anxiety. On reassessment patient reports pain much improved (3- 4/10), nausea resolved, no further vomiting. PO challenged and tolerated well. Ambulated steadily without difficulty. Requests discharge home which is reasonable. Prescribed zofran for home; 2-3 days of PO zofran in combination with home celexa clinically insignificant in terms of QT prolongation. Patient requested klonopin (takes this regularly, has 1-2 pills left, identifies today as a very anxiety provoking event). Given that it is the weekend, prescribed 2 klonopin for home and advised to followup with PCP on Saturday. Discharged home; discharge instructions including return precautions were reviewed with patient who verbalized understanding. All questions were answered and they are in full agreement with the plan. Imaging Data Radiologic Study: Imaging: CT Scan Radiologist's impression: IMPRESSION: Prominent left forehead frontal region scalp hematoma.? No skull fractures.? No evidence of intracranial hemorrhage at this time, intra nor extra-axial.? If clinically indicated repeat CT scan can be performed if patient does not improve. HPI General Mode of arrival: ambulatory . Date/Time Provider Initiated Documentation: 12/01/22 12:36 . Limitations to Documentation: no limitations . Information obtained by: patient and family . HPI Narrative: 77yo F not on anticoagulation presenting for head injury. Two hours prior to arrival tripped on electrical cord and fell forward, striking her left forehead on bedpost. No loss of consciousness. Took tylenol at home for head pain. About 30 minutes ago began vomiting and so presented to the ED. No numbness, tingling, or focal weakness. Reports cut to her left forearm, otherwise denies any other pain or injury including any neck pain. JOYCE is severe, left-frontal, nonradiating, 9/10 in severity, no aggravating factors. She was in her usual state of health prior to this event. Related Data Home Medications Medication Instructions Recorded Confirmed amlodipine 5 mg tablet 2.5 mg PO DAILY 01/22/13 09/06/22 bupropion HCl 300 mg 24 hr tablet, 300 mg PO DAILY 01/22/13 09/06/22 extended release citalopram 40 mg tablet (Celexa) 40 mg PO .HS 01/22/13 09/06/22 zolpidem 5 mg tablet 10 mg PO .HS 01/22/13 09/06/22 clonazepam 0.5 mg tablet (Klonopin) 0.5 mg PO PRN PRN 03/13/14 09/06/22 azelastine 137 mcg (0.1 %) nasal 2 spry NS BID 11/22/17 09/06/22 spray aerosol levothyroxine 137 mcg tablet 137 mcg PO DAILY 11/11/20 09/06/22 (Euthyrox) psyllium husk 3.4 gram/5.4 gram 2 tsp PO DAILY 11/10/21 09/06/22 oral powder (Metamucil) vitamin B complex 1 tab PO DAILY 11/10/21 09/06/22 fluticasone propionate 230 2 puff inhalation BID #12 grams 11/14/21 03/09/22 mcg-salmeterol 21 mcg/actuation HFA inhaler (Advair HFA) levalbuterol tartrate 45 2 inh inhalation Q6H #15 grams 11/14/21 09/06/22 mcg/actuation aerosol inhaler cholecalciferol (vitamin D3) 25 25 mcg PO DAILY 02/14/22 09/06/22 mcg (1,000 unit) capsule budesonide-formoterol HFA 160 2 puff inhalation BID #10.2 grams 09/06/22 09/06/22 mcg-4.5 mcg/actuation aerosol inhaler (Symbicort) doxycycline hyclate 100 mg capsule 100 mg PO BID #10 caps 09/06/22 09/06/22 prednisone 10 mg tablet 10 mg PO DAILY #34 tabs 09/06/22 09/06/22 clonazepam 0.5 mg tablet (Klonopin) 0.5 mg PO DAILY PRN #2 tabs 12/01/22 ondansetron 4 mg disintegrating 4 mg PO Q8H #5 tabs 12/01/22 tablet Previous Rx's Medication Instructions Recorded fluticasone propionate 230 2 puff inhalation BID #12 grams 11/14/21 mcg-salmeterol 21 mcg/actuation HFA inhaler (Advair HFA) levalbuterol tartrate 45 2 inh inhalation Q6H #15 grams 11/14/21 mcg/actuation aerosol inhaler budesonide-formoterol HFA 160 2 puff inhalation BID #10.2 grams 09/06/22 mcg-4.5 mcg/actuation aerosol inhaler (Symbicort) doxycycline hyclate 100 mg capsule 100 mg PO BID #10 caps 09/06/22 prednisone 10 mg tablet 10 mg PO DAILY #34 tabs 09/06/22 clonazepam 0.5 mg tablet (Klonopin) 0.5 mg PO DAILY PRN #2 tabs 12/01/22 ondansetron 4 mg disintegrating 4 mg PO Q8H #5 tabs 12/01/22 tablet Allergies Allergy/AdvReac Type Severity Reaction Status Date / Time shrimp Allergy Severe Anaphylaxis Verified 09/06/22 14:58 iopamidol AdvReac Intermediate Anaphylaxsi Unverified 09/06/22 14:58 s montelukast sodium AdvReac Intermediate Headache Unverified 09/06/22 14:58 [From Singrajir] morphine AdvReac Intermediate Cardiac Unverified 09/06/22 14:58 Dysrythmia nitrofurazone AdvReac Mild Nausea Unverified 09/06/22 14:58 General Stated Complaint: HeadInjury MARYA: 2 Review of Systems Narrative: see HPI PFSH All Active Problems (Updated 12/01/22 @ 15:38 by Amy Pagan MD) Concussion (Acute) COVID (Acute) Cervical radicular pain (Acute) Asthma (Chronic) Chest pain (Acute) Conductive hearing loss, external ear (Acute) Perforation of colon as colonoscopy complication (Acute) Medical History Abdominal pain, epigastric Abnormal chest CT Abnormal finding on EKG Anemia Anxiety Bilateral cataracts Change in bowel movement Chest discomfort Colon perforation Constipation Degenerative cervical disc Depression Facial paresthesia Female bladder prolapse Female bladder prolapse Fibromyalgia Hearing loss History of IBS History of pneumonia Hyperkalemia Hyperlipidemia Hypertension Hypothyroid IBS (irritable bowel syndrome) Insomnia Left leg pain Malignant melanoma Menopausal state Neck pain Oral candidiasis Pain in right arm Pneumonitis Synovial cyst Tenosynovitis of finger Surgical History Abdominal hysterectomy Arthroscopy, Shoulder right Bladder Surgery Colonoscopy - MAC H/O colonoscopy H/O: hysterectomy History of bladder surgery Replacement of total knee joint right Family History Other Constipation Social History Smoking/Tobacco Use Status: Former Tobacco Use Quit Date: 05/06/69 Smoking risk assessment performed?: Yes Alcohol Intake: current Alcohol Intake frequency: 0-2 drinks per day Alcohol type: wine Drug use: Never Substance use type: does not use Household members: spouse Housing: house Do you feel safe at home: Yes Do you feel safe in your relationship?: Yes Exam Narrative Exam Narrative: GENERAL: Vomiting, distressed. SKIN: Warm and well perfused. Skin tear to left forearm, hemostatic. HEAD: Normocephalic. Large hematoma to left forehead, otherwise facial bones without deformities or tenderness. EYES: No scleral icterus or conjunctival injection. Extraocular muscles intact without nystagmus or diplopia. No proptosis or enophthalmos. NOSE: No discharge, tenderness, laxity. No nasal septal hematoma. MOUTH: No malocclusion or trismus. Moist mucus membranes without blood. NECK: Trachea midline. No discolorations or edema. CV: Regular rate and rhythm, Normal s1 and s2. No murmurs, rubs, or gallops. PV: Radial pulses 2+ bilaterally and symmetric. Dorsalis pedis pulses 2+ bilaterally and symmetric. 2+ capillary refill. No extremity edema. CHEST: No abrasions or ecchymosis. Chest symmetric with respirations. No chest wall tenderness. Lungs are clear to auscultation bilaterally. ABDOMEN: No ecchymosis or abrasions. Soft, nondistended, nontender. BACK: Spine without bony tenderness, no step offs. MSK: No gross deformities. Tolerates full range of motion of extremities without tenderness. NEURO: Alert and oriented to person, place, and time. GCS 15. PERRL. Sensation grossly intact. Strength 5/5 in bilateral UE and LE. Course Vital Signs Vital signs: Vital Signs Temperature 36.9 C 12/01/22 12:33 Pulse 81 12/01/22 12:33 Respiratory Rate 22 12/01/22 12:33 Blood Pressure 139/85 12/01/22 12:33 Pulse Oximetry 95 12/01/22 12:33 Temperature 36.9 C 12/01/22 12:33 Pulse 81 12/01/22 12:33 Respiratory Rate 22 12/01/22 12:33 Blood Pressure 139/85 12/01/22 12:33 Pulse Oximetry 95 12/01/22 12:33 Oxygen Delivery Method Room Air 12/01/22 12:33 Oxygen Flow Rate 0 12/01/22 12:33 Pain Level 10 12/01/22 12:33
[2022-12-01] MEDS: LORazepam 2 MG/ML VIAL 0.5 MG IVP (13:25)
[2022-12-01] MEDS: Prochlorperazine 10 MG/2 ML VIAL 5 MG IVP (13:29)
--- NOTE | 2022-12-01 14:33 | NUR.NOTE ---
Nursing Note: this RN walked patient to bathroom in unit. Patient denies dizziness while walking. Patient was independent with ambulation and ADLs
--- NOTE | 2022-12-01 14:38 | NUR.NOTE ---
Nursing Note: this RN gave patient crackers and vani doreen for PO challenge. Call light within reach of patient at this time
== END 2022-12-01 16:10 | disposition home or self-care (01) ==
PROVIDERS: Emergency Provider Student in an Organized Health Care Education/Training Program; PCP Family Medicine
DX: S06.0X0A Concussion without loss of consciousness, initial encounter (principal); R11.10 Vomiting, unspecified; I10 Essential (primary) hypertension; Z79.01 Long term (current) use of anticoagulants; Z87.891 Personal history of nicotine dependence; W01.190A Fall on same level from slipping, tripping and stumbling with subsequent striking against furniture, initial encounter; Y93.01 Activity, walking, marching and hiking; Y92.013 Bedroom of single-family (private) house as the place of occurrence of the external cause; Y99.9 Unspecified external cause status
CPT/HCPCS: 96374; 96375; 99284; 70450; J0780; J2060; J2405

== ENCOUNTER 2022-12-10 08:29 | Outpatient (REF) | payer MEDICARE, SELFPAY ==
[2022-12-10 15:47] LABS: AST 21 U/L (15-37); Calculated LDL 118 mg/dL (<100); Cholesterol 213 mg/dL (<200); Estimated GFR 58.39 (mL/min/1.73m2); HDL Cholesterol 78 mg/dL (40-60); TSH (W/Ref FT4) 0.76 uIU/mL (0.36-3.74); Triglyceride 88 mg/dL (<150)
[2022-12-10 16:07] LABS: Creatine Kinase 77 U/L (26-192)
== END 2022-12-10 08:30 | disposition home or self-care (01) ==
LOC: NCHCN 08:29
PROVIDERS: PCP Family Medicine; Visit Provider Family Medicine
DX: E03.9 Hypothyroidism, unspecified (principal); Z00.00 Encounter for general adult medical examination without abnormal findings; Z91.89 Other specified personal risk factors, not elsewhere classified
CPT/HCPCS: 80061; 82550; 82565; 84443; 84450

== ENCOUNTER 2023-02-19 13:37 | Emergency (ER) | payer MEDICARE, SELFPAY ==
[2023-02-19 13:43] VITALS: BP 146/81; PULSE 71; RESP 16; TEMP 36.6; O2SAT 98
[2023-02-19 13:46] VITALS: PULSE 74; RESP 16; TEMP 36.6; O2SAT 99
--- NOTE | 2023-02-19 14:00 | DI.RAD_ITS ---
Exam(s) XR ELBOW LT COMPLETE EXAM: XR ELBOW LT COMPLETE CLINICAL HISTORY: left elbow pain. TECHNIQUE: 2D digital imaging was performed. COMPARISON: No exams were available for comparison FINDINGS: 3 views There is no evidence of obvious fracture. There is slight elevation of the anterior fat pad. Radial head and neck appear unremarkable on these images. No osteochondral defects at the level the capite llum and trochlea. Medial epicondyle appears unremarkable. Some soft tissue calcification is seen a djacent to the lateral epicondyle. Bone density age-appropriate. No osseous lesions. No swelling of the olecranon bursa. Some calcification noted at the insertional aspect of the tricep s on the posterior aspect of the olecranon. IMPRESSION: Subtle calcifications noted in the soft tissue adjacent to the lateral epicondyle. Correlation any c linical signs of lateral epicondylitis-tennis elbow recommended. Small amount of increased joint fluid. No obvious radial head-neck fracture. DATA REPOSITORY: RADIATION DOSE DELIVERED:
--- NOTE | 2023-02-19 14:19 | W.ED.GENAD ---
Discharge Plan Disposition Patient Disposition: Home Discharge Details Clinical Impression: Elbow injury Primary Care Provider: Leeanne Schultz V ED Provider: Nu Lopez Home Meds and New Rx's Prescriptions: No Action levalbuterol tartrate 45 mcg/actuation HFA aerosol inhaler 2 inh inhalation Q6H Qty: 15 11RF fluticasone propion-salmeterol [Advair HFA] 230-21 mcg/actuation HFA aerosol inhaler 2 puff inhalation BID Qty: 12 12RF cholecalciferol (vitamin D3) 25 mcg (1,000 unit) capsule 25 mcg PO DAILY budesonide-formoterol [Symbicort] 160-4.5 mcg/actuation HFA aerosol inhaler 2 puff inhalation BID Qty: 10.2 6RF prednisone 10 mg tablet 10 mg PO DAILY Qty: 34 0RF Rx Instructions: Take 40mg (4 tablets) one a day for 4 days, 30mg (3 tablets) once a day for 3 days, 20mg (2 tablets) once a day for 3 days , 10mg (1 tablet) for 2 days, 5mg (0.5 tablets) for 2 days doxycycline hyclate 100 mg capsule 100 mg PO BID Qty: 10 0RF azelastine 137 MCG/0.137 ML aerosol,spray 2 spry NS BID Metamucil 3.4 gram/5.4 gram powder 2 tsp PO DAILY Rx Instructions: mix into at least 4 oz water or juice before administering vitamin B complex Tablet 1 tab PO DAILY citalopram [Celexa] 40 MG tablet 40 mg PO .HS amlodipine 5 MG tablet 2.5 mg PO DAILY zolpidem 5 MG tablet 10 mg PO .HS bupropion HCl 300 MG tablet extended release 24 hr 300 mg PO DAILY clonazepam [Klonopin] 0.5 MG tablet 0.5 mg PO PRN PRN levothyroxine [Euthyrox] 137 mcg tablet 137 mcg PO DAILY Patient Comments: TAKE 1 TABLET BY MOUTH ONCE DAILY ondansetron 4 mg tablet,disintegrating 4 mg PO Q8H Qty: 5 0RF clonazepam [Klonopin] 0.5 mg tablet 0.5 mg PO DAILY PRNQty: 2 0RF Discharge Instructions Additional Instructions: continue pain control as needed, can ice as needed if symptoms persist, worsen or unable to fully straighten, please follow up with Ortho, you may need additional imaging Referrals: Samir Ahn MD [ [facility] STAFF PHYSICIAN] - Medical Decision Making Emergent evaluation of left elbow injury. Initial differential includes fracture, contusion, doubt ligamentous injury or dislocation. Pain is well controlled, patient is declining pain medication in the emergency department. Initial plan for imaging of the area. 1530: X-ray imaging reviewed, there is some small joint effusion, but no other signs and symptoms concerning for given patient's fairly benign exam and reassuring imaging, I do not feel that she needs additional imaging to evaluate for an occult fracture at this time. However I have discussed with her that if her symptoms or not improved or resolved in the next few days, she should follow-up with orthopedics. Medical Records Medical records reviewed: Yes I reviewed the patient's medical records. HPI General Date/Time Provider Initiated Documentation: 02/19/23 14:06. Limitations to Documentation: no limitations. Information obtained by: patient. HPI Narrative: 77-year-old female without significant past medical history presents for acute onset left elbow pain. Onset of symptoms 2 days ago. She reports that she was leaning and reaching into the bathtub when she slipped. She reports that she landed with her arm outstretched. She reports acute onset pain in the left elbow. No other injuries. She denies any open wounds, numbness, tingling or weakness. Pain in the elbow worse with fully extending her arm. She reports that she has difficulty extending her arm. This injury occurred in [place] and she delayed her evaluation as she wants to travel home. Related Data Home Medications Medication Instructions Recorded Confirmed amlodipine 5 mg tablet 2.5 mg PO DAILY 01/22/13 09/06/22 bupropion HCl 300 mg 24 hr tablet, 300 mg PO DAILY 01/22/13 09/06/22 extended release citalopram 40 mg tablet (Celexa) 40 mg PO .HS 01/22/13 09/06/22 zolpidem 5 mg tablet 10 mg PO .HS 01/22/13 09/06/22 clonazepam 0.5 mg tablet (Klonopin) 0.5 mg PO PRN PRN 03/13/14 09/06/22 azelastine 137 mcg (0.1 %) nasal 2 spry NS BID 11/22/17 09/06/22 spray aerosol levothyroxine 137 mcg tablet 137 mcg PO DAILY 11/11/20 09/06/22 (Euthyrox) psyllium husk 3.4 gram/5.4 gram 2 tsp PO DAILY 11/10/21 09/06/22 oral powder (Metamucil) vitamin B complex 1 tab PO DAILY 11/10/21 09/06/22 fluticasone propionate 230 2 puff inhalation BID #12 grams 11/14/21 03/09/22 mcg-salmeterol 21 mcg/actuation HFA inhaler (Advair HFA) levalbuterol tartrate 45 2 inh inhalation Q6H #15 grams 11/14/21 09/06/22 mcg/actuation aerosol inhaler cholecalciferol (vitamin D3) 25 25 mcg PO DAILY 02/14/22 09/06/22 mcg (1,000 unit) capsule budesonide-formoterol HFA 160 2 puff inhalation BID #10.2 grams 09/06/22 09/06/22 mcg-4.5 mcg/actuation aerosol inhaler (Symbicort) doxycycline hyclate 100 mg capsule 100 mg PO BID #10 caps 09/06/22 09/06/22 prednisone 10 mg tablet 10 mg PO DAILY #34 tabs 09/06/22 09/06/22 clonazepam 0.5 mg tablet (Klonopin) 0.5 mg PO DAILY PRN #2 tabs 12/01/22 ondansetron 4 mg disintegrating 4 mg PO Q8H #5 tabs 12/01/22 tablet Previous Rx's Medication Instructions Recorded fluticasone propionate 230 2 puff inhalation BID #12 grams 11/14/21 mcg-salmeterol 21 mcg/actuation HFA inhaler (Advair HFA) levalbuterol tartrate 45 2 inh inhalation Q6H #15 grams 11/14/21 mcg/actuation aerosol inhaler budesonide-formoterol HFA 160 2 puff inhalation BID #10.2 grams 09/06/22 mcg-4.5 mcg/actuation aerosol inhaler (Symbicort) doxycycline hyclate 100 mg capsule 100 mg PO BID #10 caps 09/06/22 prednisone 10 mg tablet 10 mg PO DAILY #34 tabs 05/04/23 clonazepam 0.5 mg tablet (Klonopin) 0.5 mg PO DAILY PRN #2 tabs 12/01/22 ondansetron 4 mg disintegrating 4 mg PO Q8H #5 tabs 12/01/22 tablet Allergies Allergy/AdvReac Type Severity Reaction Status Date / Time shrimp Allergy Severe Anaphylaxis Verified 09/06/22 14:58 iopamidol AdvReac Intermediate Anaphylaxsi Unverified 09/06/22 14:58 s montelukast sodium AdvReac Intermediate Headache Unverified 09/06/22 14:58 [From Singulair] morphine AdvReac Intermediate Cardiac Unverified 09/06/22 14:58 Dysrythmia nitrofurazone AdvReac Mild Nausea Unverified 09/06/22 14:58 General Stated Complaint: Orthopedic MARYA: 4 PFSH All Active Problems (Updated 02/19/23 @ 15:27 by Nu Lopez MD) Elbow injury (Acute) COVID (Acute) Cervical radicular pain (Acute) Asthma (Chronic) Chest pain (Acute) Conductive hearing loss, external ear (Acute) Perforation of colon as colonoscopy complication (Acute) Medical History Degenerative cervical disc Hyperlipidemia Hypertension IBS (irritable bowel syndrome) Menopausal state History of pneumonia Bilateral cataracts Synovial cyst Pneumonitis Abnormal chest CT Pain in right arm Female bladder prolapse Constipation Change in bowel movement Colon perforation Oral candidiasis Anemia Left leg pain Chest discomfort Abdominal pain, epigastric Hyperkalemia Tenosynovitis of finger Neck pain Abnormal finding on EKG Facial paresthesia Malignant melanoma Hypothyroid Fibromyalgia Depression Anxiety Hearing loss History of IBS Insomnia Female bladder prolapse Surgical History History of bladder surgery H/O: hysterectomy H/O colonoscopy Replacement of total knee joint right Abdominal hysterectomy Colonoscopy - MAC Bladder Surgery Arthroscopy, Shoulder right Family History Other Constipation Social History Smoking/Tobacco Use Status: Former Tobacco Use Quit Date: 05/06/69 Smoking risk assessment performed?: Yes Alcohol Intake: current Alcohol Intake frequency: 0-2 drinks per day Alcohol type: wine Drug use: Never Substance use type: does not use Household members: spouse Housing: house Do you feel safe at home: Yes Do you feel safe in your relationship?: Yes Exam Narrative Exam Narrative: Review of Systems: All systems reviewed & are unremarkable except as noted in HPI and below Exam: Const: Well-nourished, Well-developed NACT PERRL, normal conjunctiva CVS: RRR RESP: Unlabored respiratory effort GI: Nondistended MSK: Left elbow with swelling, no obvious deformity, minimal tenderness, no increased pain with supination or pronation, full range of motion, neurovascularly intact distally, no other injuries noted to the upper extremity Skin: No rashes or lesions. Neuro: no focal neurologic deficits Psych: Appropriate mood and affect Course Vital Signs Vital signs: Vital Signs Temperature 36.6 C 02/19/23 13:43 Pulse 71 02/19/23 13:43 Respiratory Rate 16 02/19/23 13:43 Blood Pressure 146/81 H 02/19/23 13:43 Pulse Oximetry 98 02/19/23 13:43 Temperature 36.6 C 02/19/23 13:46 Temperature Source Tympanic 02/19/23 13:46 Pulse 74 02/19/23 13:46 Pulse Rhythm Regular 02/19/23 13:46 Pulse Strength Normal 02/19/23 13:46 Respiratory Rate 16 02/19/23 13:46 Respiratory Effort Normal 02/19/23 13:46 Respiratory Depth Normal 02/19/23 13:46 Respiratory Pattern Normal 02/19/23 13:46 Blood Pressure 146/81 H 02/19/23 13:43 Blood Pressure Position Sitting 02/19/23 13:43 Pulse Oximetry 99 02/19/23 13:46 Oxygen Delivery Method Room Air 02/19/23 13:46 Oxygen Flow Rate 0 02/19/23 13:46 Pain Level 5 02/19/23 13:46 Comment Pain only when moving elbow 02/19/23 13:43 PAWSS Have you Been Recently Intoxicated or Drunk Within the Last 30 days?: No Result: 0
--- NOTE | 2023-02-19 15:27 | NUR.NOTE ---
Will be faxing a referral to [facility] for a Left Elbow Injury
== END 2023-02-19 15:31 | disposition home or self-care (01) ==
PROVIDERS: Emergency Provider Emergency Medicine; PCP Family Medicine
DX: S59.902A Unspecified injury of left elbow, initial encounter (principal); W19.XXXA Unspecified fall, initial encounter
CPT/HCPCS: 99283; 73080

== ENCOUNTER → 2023-03-13 15:27 | Outpatient (BNVA) | payer MEDICARE, SELFPAY | PROVIDERS: PCP Family Medicine; Referring Provider Family Medicine; Visit Provider Podiatrist | DX: B35.1 Tinea unguium (principal); L60.3 Nail dystrophy | CPT/HCPCS: 99213 ==

== ENCOUNTER 2023-09-19 14:50 | Outpatient (REF) | payer MEDICARE, SELFPAY ==
[2023-09-19 15:37] LABS: HCT 37.7 % (36.0-46.0); HGB 12.1 g/dL (11.2-15.7)
[2023-09-19 15:48] LABS: AST 13 U/L (15-37); Calculated LDL 96 mg/dL (<100); Cholesterol 202 mg/dL (<200); HDL Cholesterol 92 mg/dL (40-60); Triglyceride 74 mg/dL (<150)
== END 2023-09-19 14:51 | disposition home or self-care (01) ==
LOC: NCHCN 14:50
PROVIDERS: PCP Family Medicine; Visit Provider Family Medicine
DX: E78.5 Hyperlipidemia, unspecified (principal); D64.9 Anemia, unspecified; Z00.00 Encounter for general adult medical examination without abnormal findings
CPT/HCPCS: 80061; 84450; 85014; 85018

== ENCOUNTER → 2023-10-08 01:21 | Outpatient (CLI) | payer MEDICARE, SELFPAY ==
--- NOTE | 2023-10-08 | DI.MAMMO_ITS ---
Exam(s) MAMMO SCREENING EXAM: MAMMO SCREENING CLINICAL HISTORY: SCREENING, Z12.31. TECHNIQUE: Bilateral full field digital CC and MLO mammographic images were obtained with 3D tomosyn thesis and utilizing computer aided detection (CAD). COMPARISON: Prior mammograms were reviewed. FINDINGS: There has been no significant change in the appearance and distribution of the fibroglandular tissue. There are no CAD designations There are no new spiculated masses nor malignant appearing microcalcification groups. In the left breast on the CC view there is a benign-appearing nodular density seen on the lower most 3D slice. Suspect that this is a skin mole given its location. It was, however, not evident on prio r mammograms. There is no significant architectural distortion nor skin thickening-retraction. IMPRESSION: 1. No radiographic evidence of malignancy in the right breast. 2. Probable inferior skin mole left breast. This, however, was not evident on prior mammograms. If there is no skin mole on the inferior-posterior aspect of her breast then this patient should return for further imaging of this left breast finding which was not evident on prior mammograms.. BI-RADS Category 0 - Assessment Incomplete: Need additional imaging evaluation Breast Density - Category B - Scattered areas of fibroglandular density Breast density Category C or D implies that the patient has dense breast tissue. Dense breast tissue can make it harder to find cancer on a mammogram. Dense breast tissue is also associated with an incr eased risk of breast cancer. This information about the result of the mammogram report was provided to the patient to raise their awareness. Use this report when you speak with the patient about their risks for breast cancer, which includes their family history. At that time, you may recommend additional screening tests (Ultrasoun d or MRI) as these tests may add significant information. A negative radiographic report should not delay biopsy if a dominant or clinically suspicious mass is present. Up to ten percent of cancers are not identified on mammography. A negative report may reinforce clinical impression. Adenosis and dense breasts may obscure an underlying neoplasm. False positive reports average 6 to 10%. Patient will receive a letter notifying them of these results.
== END ==
PROVIDERS: PCP Family Medicine; Visit Provider Family Medicine
DX: Z12.31 Encounter for screening mammogram for malignant neoplasm of breast (principal)
CPT/HCPCS: 77063; 77067

== ENCOUNTER → 2023-10-16 13:07 | Outpatient (BNVA) | payer MEDICARE, SELFPAY | PROVIDERS: PCP Family Medicine; Referring Provider Family Medicine; Visit Provider Podiatrist | DX: B35.1 Tinea unguium; L60.3 Nail dystrophy; Q82.8 Other specified congenital malformations of skin | CPT/HCPCS: 17110 ==

== ENCOUNTER 2024-10-07 09:22 | Emergency (ER) | payer MEDICARE, SELFPAY ==
[2024-10-07 09:24] VITALS: BP 139/86; PULSE 79; RESP 20; TEMP 36.5; O2SAT 98
[2024-10-07 10:06] VITALS: BP 141/73; PULSE 79; RESP 16; O2SAT 98
--- NOTE | 2024-10-07 10:06 | ED.GENADUL_ITS ---
Discharge Plan Disposition Patient Disposition: Home Condition: Stable Discharge Details Clinical Impression: Multilevel foraminal stenosis Primary Care Provider: Leeanne Schultz V ED Provider: Dorothea Jolly Home Meds and New Rx's Prescriptions: New oxycodone 5 mg tablet 5 mg PO BID Qty: 10 0RF gabapentin [Neurontin] 100 mg capsule 100 mg PO DAILY Qty: 30 0RF Rx Instructions: take 100 mg today, may take 100 mg twice daily day 2, 100 mg three times daily day 3, 200 mg TID day 4-7, may increase to 300 mg TID thereafter Continued levalbuterol tartrate 45 mcg/actuation HFA aerosol inhaler 2 inh inhalation Q6H Qty: 15 11RF fluticasone propion-salmeterol [Advair HFA] 230-21 mcg/actuation HFA aerosol inhaler 2 puff inhalation BID Qty: 12 12RF cholecalciferol (vitamin D3) 25 mcg (1,000 unit) capsule 25 mcg PO DAILY budesonide-formoterol [Symbicort] 160-4.5 mcg/actuation HFA aerosol inhaler 2 puff inhalation BID Qty: 10.2 6RF polyethylene glycol 3350 [Miralax] 17 gram/dose powder 17 g PO DAILY simvastatin 10 mg tablet 10 mg PO DAILY fluocinonide 0.05 % cream 1 applic topical BID albuterol sulfate 90 mcg/actuation HFA aerosol inhaler 2 puff inhalation Q6H PRN albuterol sulfate 2.5 mg /3 mL (0.083 %) solution for nebulization 2.5 mg inhalation Q4H PRN amoxicillin 500 mg capsule 2,000 mg PO .COMPLEX Rx Instructions: 2,000 mg orally One Hour Prior to Dental Appointment; clonazepam 1 mg tablet 1 mg PO DAILY PRN estradiol 0.01 % (0.1 mg/gram) cream 1 g vaginal QHS Rx Instructions: for 14 days metronidazole 0.75 % cream 1 applic topical DAILY niacinamide 500 mg capsule 500 mg PO BID pantoprazole 40 mg tablet,delayed release (DR/EC) 40 mg PO DAILY PRN bupropion HCl [Wellbutrin XL] 300 mg tablet extended release 24 hr 300 mg PO QAM trazodone 50 mg tablet 50 mg PO DAILY azelastine 137 MCG/0.137 ML aerosol,spray 2 spry NS BID vitamin B complex Tablet 1 tab PO DAILY ketoconazole 2 % cream 1 applic topical DAILY 90 Days Qty: 60 6RF Rx Instructions: Apply to toenails once daily amlodipine 5 MG tablet 2.5 mg PO DAILY levothyroxine [Euthyrox] 137 mcg tablet 137 mcg PO DAILY Patient Comments: TAKE 1 TABLET BY MOUTH ONCE DAILY clonazepam [Klonopin] 0.5 mg tablet 0.5 mg PO DAILY PRNQty: 2 0RF Discharge Instructions Instructions: Low back pain in adults, Spinal Stenosis Stretching Exercises, Spinal Stenosis Strengthening Exercises Additional Instructions: Try taking the Neurontin when you arrive home, if you do not have symptomatic improvement, go ahead and take the morphine 3 to 4 hours after taking the Neurontin You may be drowsy on this medication please use caution with walking and going from sitting to standing Try not to take the morphine and Neurontin within several hours of each other as they may have an additive drowsy effect Please return earlier should you have worsening pain or pain not moderately improved on this medication We can also prescribe a steroid taper however this would be as more of a last resort as the epidural also has steroid which is moderately systemically absorbed Referrals: Leeanne Schultz MD [Primary Care Provider] - 2 days Boo Rosa DO [OSTEOPATHIC DOCTOR] - HPI General Date/Time Provider Initiated Documentation: 10/07/24 09:31 . HPI Narrative: 79-year-old female with foraminal stenosis, received epidural injections, presenting with worsening back pain. Last injection on 09/09/2024. Scheduled for epidural injection in 1 week due to worsening pain. No changes in bowel or bladder function. Related Data Home Medications ?Medication ?Instructions ?Recorded ?Confirmed amlodipine 5 mg tablet 2.5 mg PO DAILY 01/22/13 10/07/24 azelastine 137 mcg (0.1 %) nasal 2 spry NS BID 11/22/17 10/07/24 spray levothyroxine 137 mcg tablet 137 mcg PO DAILY 11/11/20 10/07/24 (Euthyrox) vitamin B complex 1 tab PO DAILY 11/10/21 10/07/24 fluticasone propionate 230 2 puff inhalation BID #12 grams 11/14/21 10/07/24 mcg-salmeterol 21 mcg/actuation HFA inhaler (Advair HFA) levalbuterol tartrate 45 2 inh inhalation Q6H #15 grams 11/14/21 10/07/24 mcg/actuation aerosol inhaler cholecalciferol (vitamin D3) 25 25 mcg PO DAILY 02/14/22 10/07/24 mcg (1,000 unit) capsule budesonide-formoterol HFA 160 2 puff inhalation BID #10.2 grams 09/06/22 10/07/24 mcg-4.5 mcg/actuation aerosol inhaler (Symbicort) clonazepam 0.5 mg tablet (Klonopin) 0.5 mg PO DAILY PRN #2 tabs 12/01/22 10/07/24 fluocinonide 0.05 % topical cream 1 applic topical BID 10/16/23 10/07/24 polyethylene glycol 3350 17 17 g PO DAILY 10/16/23 10/07/24 gram/dose oral powder (Miralax) simvastatin 10 mg tablet 10 mg PO DAILY 10/16/23 10/07/24 ketoconazole 2 % topical cream 1 applic topical DAILY 3 months 04/09/24 10/07/24 #60 grams albuterol sulfate 2.5 mg/3 mL 2.5 mg inhalation Q4H PRN 08/28/24 10/07/24 (0.083 %) solution for nebulization albuterol sulfate 90 mcg/actuation 2 puff inhalation Q6H PRN 08/28/24 10/07/24 aerosol inhaler amoxicillin 500 mg capsule 2,000 mg PO .COMPLEX 08/28/24 10/07/24 bupropion HCl 300 mg 24 hr tablet, 300 mg PO QAM 08/28/24 10/07/24 extended release (Wellbutrin XL) clonazepam 1 mg tablet 1 mg PO DAILY PRN 08/28/24 10/07/24 estradiol 0.01% (0.1 mg/gram) 1 g vaginal QHS 08/28/24 10/07/24 vaginal cream metronidazole 0.75 % topical cream 1 applic topical DAILY 08/28/24 10/07/24 niacinamide 500 mg capsule 500 mg PO BID 08/28/24 10/07/24 pantoprazole 40 mg tablet,delayed 40 mg PO DAILY PRN 08/28/24 10/07/24 release trazodone 50 mg tablet 50 mg PO DAILY 09/09/24 10/07/24 gabapentin 100 mg capsule 100 mg PO DAILY #30 caps 10/07/24 (Neurontin) oxycodone 5 mg tablet 5 mg PO BID #10 tabs 10/07/24 Previous Rx's ?Medication ?Instructions ?Recorded fluticasone propionate 230 2 puff inhalation BID #12 grams 11/14/21 mcg-salmeterol 21 mcg/actuation HFA inhaler (Advair HFA) levalbuterol tartrate 45 2 inh inhalation Q6H #15 grams 11/14/21 mcg/actuation aerosol inhaler budesonide-formoterol HFA 160 2 puff inhalation BID #10.2 grams 09/06/22 mcg-4.5 mcg/actuation aerosol inhaler (Symbicort) clonazepam 0.5 mg tablet (Klonopin) 0.5 mg PO DAILY PRN #2 tabs 12/01/22 ketoconazole 2 % topical cream 1 applic topical DAILY 3 months 04/09/24 #60 grams gabapentin 100 mg capsule 100 mg PO DAILY #30 caps 10/07/24 (Neurontin) oxycodone 5 mg tablet 5 mg PO BID #10 tabs 10/07/24 Allergies Allergy/AdvReac Type Severity Reaction Status Date / Time shrimp Allergy Severe Anaphylaxis Verified 10/07/24 09:29 iopamidol AdvReac Intermediate Anaphylaxsi Unverified 10/07/24 09:29 s montelukast sodium (From AdvReac Intermediate Headache Unverified 10/07/24 09:29 Singulair) morphine AdvReac Intermediate Cardiac Unverified 10/07/24 09:29 Dysrythmia nitrofurazone AdvReac Mild Nausea Unverified 10/07/24 09:29 General Stated Complaint: Nk/Back Pain MARYA: 4 Exam Narrative Exam Narrative: General Appearance: Alert and oriented, tearful. Vital signs: Within normal limits. HEENT: Within normal limits. Respiratory: Within normal limits. Cardiovascular: No abnormalities noted. Gastrointestinal: No abdominal tenderness. Back, Musculoskeletal: No reproducible musculoskeletal tenderness. Extremities: Strength and sensation intact in bilateral lower extremities. Negative Babinski. DTRs intact in bilateral lower extremities. Skin: Warm and dry, no rash. Neurological: Normal. Psychiatric: Tearful. Course Vital Signs Vital signs: Vital Signs Temperature 36.5 C 10/07/24 09:24 Pulse 79 10/07/24 09:24 Respiratory Rate 20 10/07/24 09:24 Blood Pressure 139/86 10/07/24 09:24 Pulse Oximetry 98 10/07/24 09:24 Temperature 36.5 C 10/07/24 09:24 Temperature Source Oral 10/07/24 09:24 Pulse 79 10/07/24 09:24 Respiratory Rate 20 10/07/24 09:24 Blood Pressure 139/86 10/07/24 09:24 Blood Pressure Position Sitting 10/07/24 09:24 Pulse Oximetry 98 10/07/24 09:24 Oxygen Delivery Method Room Air 10/07/24 09:24 Oxygen Flow Rate 0 10/07/24 09:24 Pain Level 10 10/07/24 09:50 Medical Decision Making Initial Assessment: 79-year-old female with a history of foraminal stenosis presents with worsening back pain. Last epidural injection on 09 September. No changes in bowel or bladder function. Treating sensation intact. ED Course: - Patient alert and oriented, tearful. - No reproducible tenderness, strength and sensation intact to bilateral lower extremities. - Negative Babinski, DTR's intact to bilateral lower extremities. - No abdominal tenderness, no CVA tenderness. - Exam reassuring, no evidence of cauda equina syndrome. - Intractable pain, managed to drive here. - Discharge on oxycodone and Neurontin, aware not to take together. - Plans to try Neurontin first, may take oxycodone if pain persists. - Specific schedule provided, risk of addiction reviewed. - PDMP reviewed, no prior opioid prescriptions. Final Assessment: Patient is stable for discharge home with close outpatient follow-up. Return precautions reviewed and understood. Clinical Impression: - Back pain - Foraminal stenosis Disposition: - Discharge - Follow-Up: Appointment with pain center for epidural injection next week. MDM Components Evaluation: - Number of Differential Diagnoses or Management Options: Back pain, foraminal stenosis - Amount and Complexity of Data Reviewed: PDMP reviewed - Risk of Complication and Morbidity or Mortality: Risk of addiction reviewed Quality:SDOH Health Related Social Needs: No Data to Display PFSH All Active Problems (Updated 10/07/24 @ 09:46 by FALGUNI Burnett) Multilevel foraminal stenosis (Acute) Lumbar radiculitis (Acute) Porokeratosis (Acute) Nail dystrophy (Acute) Onychomycosis (Acute) COVID (Acute) Cervical radicular pain (Acute) Asthma (Chronic) Chest pain (Acute) Conductive hearing loss, external ear (Acute) Perforation of colon as colonoscopy complication (Acute) Medical History Traumatic brain injury Bilateral thumb pain Degenerative cervical disc Hyperlipidemia Hypertension IBS (irritable bowel syndrome) Menopausal state History of pneumonia Bilateral cataracts Synovial cyst Pneumonitis Abnormal chest CT Pain in right arm Female bladder prolapse Constipation Change in bowel movement Colon perforation Oral candidiasis Anemia Left leg pain Chest discomfort Abdominal pain, epigastric Hyperkalemia Tenosynovitis of finger Neck pain Abnormal finding on EKG Facial paresthesia Malignant melanoma Hypothyroid Fibromyalgia Depression Anxiety Hearing loss History of IBS Insomnia Female bladder prolapse Surgical History History of bladder surgery H/O: hysterectomy H/O colonoscopy Replacement of total knee joint right Abdominal hysterectomy Colonoscopy - MAC Bladder Surgery Arthroscopy, Shoulder right Family History Mother Cancer Pancreatic Father Sarcoma of back Stroke Sister Cancer lung Other Constipation Social History (Updated 09/09/24 @ 08:50 by Betty Alejandro RN) Smoking/Tobacco Use Status: Former Tobacco Use Quit Date: 05/06/69 Smoking risk assessment performed?: Yes Alcohol Intake: former Drug use: Never Substance use type: does not use Household members: spouse Housing: house Do you feel safe at home: Yes Do you feel safe in your relationship?: Yes
== END 2024-10-07 10:10 | disposition home or self-care (01) ==
PROVIDERS: Emergency Provider Physician Assistant; PCP Family Medicine
DX: M48.061 Spinal stenosis, lumbar region without neurogenic claudication (principal)
CPT/HCPCS: 99283 ×2

== ENCOUNTER 2024-10-15 10:12 | Outpatient (CLI) | payer MEDICARE, SELFPAY ==
[2024-10-15 10:17] VITALS: BP 116/68; PULSE 78; RESP 20; TEMP 36.7; O2SAT 99
--- NOTE | 2024-10-15 10:44 | PDOC.PAIN_ITS ---
Date of service: 10/15/24 Time of Service: 10:44 Pain Managment Procedure Note Procedure Note Procedure Note: PROCEDURE NOTE LUMBAR EPIDURAL STEROID INJECTION Date of Service: October 15, 2024 Patient:Leeanne Webb? Provider: Boo Rosa DO, MPH Leeanne Bush has been referred to the [facility] for a lumbar epidural steroid injection. Pre-operative diagnosis: Lumbosacral Radiculopathy ICD-10 M54.16 Post-operative diagnosis: Same Pre-Procedure Pain: VAS= 7 /10 Comments: I previously evaluated her in the office. She had >3 months of >50% pain improvement with her last TFESI in [place]. Leeanne was interviewed and the medical record was reviewed.? There were no medical, pharmacologic, radiographic or other structural contraindications to attempting fluoroscopically guided Lumbar epidural steroid injection.? Risks, potential side effects, indications, and potential benefits of the procedure were reviewed with Leeanne.? Questions and concerns were addressed.? After it was clear that Leeanne was fully informed about the procedure, the printed consent form was signed by the patient and myself.? Leeanne was placed in the prone position on the fluoroscopy table and automated blood pressure cuff and pulse oximeter applied. The skin entry point for entering/approaching the epidural space for the lumbar epidural steroid injection was marked. Following thorough chlorhexadine preparation of the skin and draping and 1% lidocaine infiltration of the skin entry point and subcutaneous tissues, an 18 gauge Touhy needle was placed and advanced under fluoroscopic guidance and with loss of resistance technique into the L5-S1 epidural space. Needle tip placement and depth were aided and confirmed by fluoroscopy. There was no paresthesia or return of blood or CSF through the needle. 1 mls of Omnipaque 240 was injected with clear epidural spread confirmed with fluoroscopy. 80 mg of Depo-Medrol was? injected. This was followed by 1 ml of preservative-free normal saline to flush the steroid out of the needle. There was no unusual discomfort expressed by Leeanne. The needle was withdrawn without difficulty. (49 mls of Omnipaque was wasted) Leeanne was observed and was without hemodynamic, neurologic, or allergic reactions.? Fluoroscopic images were digitally archived. Leeanne's vital signs were stable throughout the procedure and were as recorded in nursing records. Follow up plans and appointments were discussed with Leeanne. Post procedure instruction was given as documented in nursing records and having met discharge criteria Leeanne was discharged from the [facility]. COMMENTS: No apparent complications. Post-procedure pain: VAS= 1/10. Leeanne to contact [facility] as needed. If at least 50% improvement in pain and/or function for at least 3 months is achieved, this procedure can be repeated. I personally performed this entire procedure. BOO ROSA DO, MPH ABPMR-subspecialty board certification in Pain Medicine [facility] Coding Conscious Sedation used for procedure: No CPT Codes: Inj Spine L/S w/Imaging - 08222 ([id number] ~G) Additional Codes: Date of Service (41684) Date of service: 10/15/24
[2024-10-15 10:58] VITALS: PULSE 75; PULSE 78; RESP 29; O2SAT 96
[2024-10-15 11:00] VITALS: PULSE 72; PULSE 73; RESP 14; O2SAT 100
[2024-10-15 11:13] VITALS: BP 131/52; PULSE 69
[2024-10-15] MEDS: Epidural Tray 1 EACH MC (11:13)
--- NOTE | 2024-10-15 11:13 | DI.RAD_ITS ---
Exam(s) XR PAIN CLINIC LUMBAR SP 2V EXAM: XR PAIN CLINIC LUMBAR SP 2V CLINICAL HISTORY: DX: Lumbar Radiculopathy TECHNIQUE: 2D and realtime digital imaging was performed. Radiologist not present. CONTRAST MATERIAL: None. COMPARISON: No exams were available for comparison FINDINGS: Fluoroscopy was provided for pain management therapy. Please refer to procedure report or details. Radiation Exposure Index: Ka,r=5.12 mGy IMPRESSION: As above. RADIATION DOSE DELIVERED:
[2024-10-15] MEDS: Omnipaque 240 MG/ML 50 ML BTL IJ (11:14)
[2024-10-15] MEDS: methylPREDNISolone ACETATE 80 MG/ML VIAL IJ (11:14)
== END 2024-10-15 10:13 | disposition home or self-care (01) ==
LOC: PC 10:13
PROVIDERS: PCP Family Medicine; Visit Provider Preventive Medicine Occupational Medicine
DX: M54.50 Low back pain, unspecified (principal); M54.16 Radiculopathy, lumbar region
CPT/HCPCS: 62323; 72100; J1010; Q9967

== ENCOUNTER 2024-10-28 00:14 | Outpatient (CLI) | payer MEDICARE, SELFPAY ==
--- NOTE | 2024-10-28 11:43 | DI.RAD_ITS ---
Exam(s) XR LUMBAR SPINE FLEX/EXT ONLY EXAM: XR LUMBAR SPINE FLEX/EXT ONLY INDICATION: Spinal stenosis, lumbosacral region, M48.07; assess motion at L4-5. COMPARISON: CR XR DEXA BONE DENSITY W/WO AARON from 03/09/2022 TECHNIQUE: 2D digital imaging was performed. Three views. FINDINGS: [id number] narrowing of the disc spaces, greater at L4-5 and L5-S1. Prominent facet degenerative changes are noted from L3-4 through L5-S1 which cause mild spondylolisthesis. No stone but evidence of spondylolysis. There is no significant subluxation with flexion and extension. IMPRESSION: Severe facet degenerative changes of the lower lumbar spine. No evidence subluxation with flexion or extension. DATA REPOSITORY: RADIATION DOSE DELIVERED:
== END 2024-10-28 00:34 ==
LOC: DI 00:14
PROVIDERS: PCP Family Medicine; Visit Provider Family Medicine
DX: M48.07 Spinal stenosis, lumbosacral region (principal)
CPT/HCPCS: 72120

== ENCOUNTER 2024-11-10 15:17 | Outpatient (REF) | payer MEDICARE, SELFPAY ==
[2024-11-10 17:13] LABS: AST 17 U/L (15-37); TSH 2.19 uIU/mL (0.36-3.74)
[2024-11-10 17:56] LABS: Vitamin B12 1155 pg/mL (193-986); Vitamin D 25 Total 41 ng/mL (30-100)
[2024-11-12 09:55] LABS: Creatine Kinase 86 U/L (26-192)
== END 2024-11-10 15:18 | disposition home or self-care (01) ==
LOC: NCHCN 15:17
PROVIDERS: PCP Family Medicine; Visit Provider Family Medicine
DX: E03.9 Hypothyroidism, unspecified (principal); G43.909 Migraine, unspecified, not intractable, without status migrainosus; R20.2 Paresthesia of skin; E78.5 Hyperlipidemia, unspecified
CPT/HCPCS: 82306; 82550; 82607; 84439; 84443; 84450

== ENCOUNTER 2024-11-16 10:53 | Outpatient (CLI) | payer MEDICARE, SELFPAY ==
--- NOTE | 2024-11-16 12:55 | DI.RAD_ITS ---
Exam(s) XR HIP RT COMPLETE AP PELVIS EXAM: XR HIP RT COMPLETE AP PELVIS CLINICAL HISTORY: PAIN RT HIP, M25.551. TECHNIQUE: 2D digital imaging was performed of the right hip. Three images were obtained. AP pelvis and lateral right hip views were obtained. COMPARISON: CR XR abdomen flat upright from 01/10/2018 FINDINGS: BONES: No acute fracture is present. No bony destructive lesion is seen. JOINTS: No dislocation present. There are mild degenerative changes seen in the right hip. Mild degenerative changes are also seen in the left hip. SOFT TISSUE: There are surgical clips in the pelvis which may reflect prior tubal ligation. There is a pessary in place. IMPRESSION: Mild osteoarthritis of the right hip. DATA REPOSITORY: RADIATION DOSE DELIVERED:
== END 2024-11-16 11:13 ==
LOC: DI 10:54
PROVIDERS: PCP Family Medicine; Visit Provider Neurological Surgery
DX: M16.11 Unilateral primary osteoarthritis, right hip (principal)
CPT/HCPCS: 73502

== ENCOUNTER 2024-11-21 19:45 | Emergency (ER) | payer MEDICARE, SELFPAY ==
[2024-11-21] VITALS (23 sets, daily range): BP systolic 131–177; BP diastolic 58–85; PULSE 72–86; RESP 20; TEMP 36.8; O2SAT 94–98
--- NOTE | 2024-11-21 20:00 | DI.CT_ITS ---
Exam(s) CT HEAD WO EXAM: CT HEAD WO CLINICAL HISTORY: swift. TECHNIQUE: Imaging Protocol: Axial computed tomography images with coronal and sagittal reformatted images were created and reviewed COMPARISON: CT CT HEAD WO from 12/01/2022 FINDINGS: Ventricles and Extra axial spaces: Normal in size and morphology for the patient's age. Hemorrhage: None. Cerebral parenchyma: There are subtle areas of decreased attenuation in the white matter suggesting chronic microvascular ischemic disease. No evidence of an acute territorial infarct or acute mass effect. Midline shift: None. Brainstem/Cerebellum: Normal. Calvarium: Normal. Visualized Paranasal sinuses/Mastoids: Clear. Soft Tissues: Unremarkable. IMPRESSION: No acute intracranial process. RADIATION DOSE DELIVERED: 870.71mGy.cm Total DLP DATA REPOSITORY: All CT scans at this facility are submitted to the National Radiology Data Registry (NRDR) Dose Index Registry (DIR) with the [employer] (A[employer]). RADIATION OPTIMIZATION: All CT scans at this facility use at least one of these dose optimization techniques: automated exposure control; mA and/or kV adjustment per patient size (includes targeted exams where dose is matched to clinical indication); or iterative reconstruction.
--- NOTE | 2024-11-21 20:16 | W.ED.GENAD ---
Discharge Plan Disposition Patient Disposition: Home Discharge Details Clinical Impression: Migraine with status migrainosus Primary Care Provider: Leeanne Schultz V ED Provider: Nu Lopez Home Meds and New Rx's Prescriptions: No Action simvastatin 10 mg tablet 10 mg PO DAILY albuterol sulfate 90 mcg/actuation HFA aerosol inhaler 2 puff inhalation Q6H PRN albuterol sulfate 2.5 mg /3 mL (0.083 %) solution for nebulization 2.5 mg inhalation Q4H PRN clonazepam 1 mg tablet 1 mg PO DAILY PRN estradiol 0.01 % (0.1 mg/gram) cream 1 g vaginal QHS Rx Instructions: for 14 days metronidazole 0.75 % cream 1 applic topical DAILY niacinamide 500 mg capsule 500 mg PO BID pantoprazole 40 mg tablet,delayed release (DR/EC) 40 mg PO DAILY PRN bupropion HCl [Wellbutrin XL] 300 mg tablet extended release 24 hr 300 mg PO QAM trazodone 50 mg tablet 50 mg PO DAILY vitamin B complex Tablet 1 tab PO DAILY ketoconazole 2 % cream 1 applic topical DAILY 90 Days Qty: 60 6RF Rx Instructions: Apply to toenails once daily amlodipine 5 MG tablet 2.5 mg PO DAILY levothyroxine [Euthyrox] 137 mcg tablet 137 mcg PO DAILY Patient Comments: TAKE 1 TABLET BY MOUTH ONCE DAILY clonazepam [Klonopin] 0.5 mg tablet 0.5 mg PO DAILY PRNQty: 2 0RF tretinoin 0.05 % cream 1 applic TOPICAL Q2D PRN citalopram 40 mg tablet 40 mg PO DAILY prednisone 20 mg tablet 20 mg PO DAILY PRN Discharge Instructions Instructions: Migraine in adults Additional Instructions: avoid tylenol and motrin more than 3 days per week make sure you are drinking lots of water over the counter you can try: daily riboflavin 400mg and Magnesium dicitrate 600mg daily blood work and CT imaging and reassuring please follow up with your PCP because you would likely benefit from starting on a daily preventative medicine HPI General Date/Time Provider Initiated Documentation: 11/21/24 20:01. Limitations to Documentation: no limitations. Information obtained by: patient. HPI Narrative: 79-year-old female with out significant past medical history presents for evaluation of headache. She reports that over the last month that she has been having daily headaches. She reports that the pain radiates into the frontal head and behind her eyes. There is no visual change. She reports light and sound sensitivity. She has not had any nausea or vomiting. She reports that she felt like the onset of of the headaches coincided with starting trazodone for sleep. She is starting to wean off of this medication but the headaches are getting worse. Not associated with fever, no trauma, no facial pain. She is taken Advil and Tylenol with minimal relief. Related Data Home Medications ?Medication ?Instructions ?Recorded ?Confirmed amlodipine 5 mg tablet 2.5 mg PO DAILY 01/22/13 11/21/24 levothyroxine 137 mcg tablet 137 mcg PO DAILY 11/11/20 11/21/24 (Euthyrox) vitamin B complex 1 tab PO DAILY 11/10/21 11/21/24 clonazepam 0.5 mg tablet (Klonopin) 0.5 mg PO DAILY PRN #2 tabs 12/01/22 11/21/24 simvastatin 10 mg tablet 10 mg PO DAILY 10/16/23 11/21/24 ketoconazole 2 % topical cream 1 applic topical DAILY 3 months 04/09/24 11/21/24 #60 grams albuterol sulfate 2.5 mg/3 mL 2.5 mg inhalation Q4H PRN 08/28/24 11/21/24 (0.083 %) solution for nebulization albuterol sulfate 90 mcg/actuation 2 puff inhalation Q6H PRN 08/28/24 11/21/24 aerosol inhaler bupropion HCl 300 mg 24 hr tablet, 300 mg PO QAM 08/28/24 11/21/24 extended release (Wellbutrin XL) clonazepam 1 mg tablet 1 mg PO DAILY PRN 08/28/24 11/21/24 estradiol 0.01% (0.1 mg/gram) 1 g vaginal QHS 08/28/24 11/21/24 vaginal cream metronidazole 0.75 % topical cream 1 applic topical DAILY 08/28/24 11/21/24 niacinamide 500 mg capsule 500 mg PO BID 08/28/24 11/21/24 pantoprazole 40 mg tablet,delayed 40 mg PO DAILY PRN 08/28/24 11/21/24 release trazodone 50 mg tablet 50 mg PO DAILY 09/09/24 11/21/24 citalopram 40 mg tablet 40 mg PO DAILY 11/21/24 11/21/24 prednisone 20 mg tablet 20 mg PO DAILY PRN 11/21/24 11/21/24 tretinoin 0.05 % topical cream 1 applic topical Q2D PRN 11/21/24 11/21/24 Previous Rx's ?Medication ?Instructions ?Recorded clonazepam 0.5 mg tablet (Klonopin) 0.5 mg PO DAILY PRN #2 tabs 12/01/22 ketoconazole 2 % topical cream 1 applic topical DAILY 3 months 04/09/24 #60 grams Allergies Allergy/AdvReac Type Severity Reaction Status Date / Time shrimp Allergy Severe Anaphylaxis Verified 11/21/24 20:16 iopamidol AdvReac Intermediate Anaphylaxsi Unverified 11/21/24 20:16 s montelukast sodium (From AdvReac Intermediate Headache Unverified 11/21/24 20:16 Singulair) morphine AdvReac Intermediate Cardiac Unverified 11/21/24 20:16 Dysrythmia nitrofurazone AdvReac Mild Nausea Unverified 11/21/24 20:16 General Stated Complaint: Headache MARYA: 3 Exam Narrative Exam Narrative: Review of Systems: All systems reviewed & are unremarkable except as noted in HPI and below Well-developed, no acute distress NCAT PERRL, normal conjunctiva , no temporal tenderness No meningeal signs RRR no murmur clear bilaterally nontender Unlabored respiratory effort Nondistended abdomen Extremities w/o edema No rashes or lesions. no focal neurologic deficits normal strength and sensation throughout Appropriate mood and affect Course Vital Signs Vital signs: Vital Signs Temperature 36.8 C 11/21/24 19:50 Pulse 86 11/21/24 19:50 Respiratory Rate 11/21/24 19:50 Blood Pressure 153/72 H 11/21/24 19:50 Pulse Oximetry 98 11/21/24 19:50 Temperature 36.8 C 11/21/24 19:54 Pulse 86 11/21/24 19:54 Respiratory Rate 20 11/21/24 19:54 Blood Pressure 153/72 H 11/21/24 19:54 Blood Pressure Position Sitting 11/21/24 19:54 Pulse Oximetry 98 11/21/24 19:54 Oxygen Delivery Method Room Air 11/21/24 19:54 Oxygen Flow Rate 0 11/21/24 19:54 Medical Decision Making Emergent evaluation of a new headache. Initial differential includes GCA, tension headache, migraine syndrome. Patient has a nonfocal neurologic exam, no history of trauma, no infectious or meningeal signs. I doubt it is an acute intracranial process however given her age we will get head CT to evaluate. Will get lab work to evaluate for arteritis. Will give medications in her IV and reassess. Head CT report reviewed, no acute intracranial process noted. Lab work does not reveal any acute abnormalities, no electrolyte derangement, inflammatory markers are not elevated so I do not suspect a vasculitis. Reports pain has gone from 10 > 6 after meds, will try sumatriptan to evaluate for improvement. Reports continued improvement in her symptoms. [id number]-[id number] recommendations provided, recommend and increase oral fluids. Recommend close follow-up with PCP as at this point I do feel the patient would benefit from daily controller medicine if she is continuing to have daily headaches. Return precautions advised. PFSH All Active Problems (Updated 11/21/24 @ 21:50 by Nu Lopez MD) Migraine with status migrainosus (Acute) Lumbar radiculitis (Acute) Porokeratosis (Acute) Nail dystrophy (Acute) Onychomycosis (Acute) COVID (Acute) Cervical radicular pain (Acute) Asthma (Chronic) Chest pain (Acute) Conductive hearing loss, external ear (Acute) Perforation of colon as colonoscopy complication (Acute) Medical History Traumatic brain injury Bilateral thumb pain Degenerative cervical disc Hyperlipidemia Hypertension IBS (irritable bowel syndrome) Menopausal state History of pneumonia Bilateral cataracts Synovial cyst Pneumonitis Abnormal chest CT Pain in right arm Female bladder prolapse Constipation Change in bowel movement Colon perforation Oral candidiasis Anemia Left leg pain Chest discomfort Abdominal pain, epigastric Hyperkalemia Tenosynovitis of finger Neck pain Abnormal finding on EKG Facial paresthesia Malignant melanoma Hypothyroid Fibromyalgia Depression Anxiety Hearing loss History of IBS Insomnia Female bladder prolapse Surgical History History of bladder surgery H/O: hysterectomy H/O colonoscopy Replacement of total knee joint right Abdominal hysterectomy Colonoscopy - MAC Bladder Surgery Arthroscopy, Shoulder right Family History Mother Cancer Pancreatic Father Sarcoma of back Stroke Sister Cancer lung Other Constipation Social History (Updated 09/09/24 @ 08:50 by Betty Alejandro RN) Smoking/Tobacco Use Status: Former Tobacco Use Quit Date: 05/06/69 Smoking risk assessment performed?: Yes Alcohol Intake: former Drug use: Never Substance use type: does not use Household members: spouse Housing: house Do you feel safe at home: Yes Do you feel safe in your relationship?: Yes
[2024-11-21 20:17] LABS: Abs Immature Grans 0.01 10^3/uL (0.0-0.06); HCT 37.4 % (36.0-46.0); HGB 12.2 g/dL (11.2-15.7); Immature Grans % 0.2 %; MCH 30.9 pg (27.0-33.0); MCHC 32.6 % (32.0-36.0); MCV 95 fL (80-95); MPV 9.2 fL (8.0-11.0); Platelet Count 338 10^3/uL (130-400); RBC 3.95 10^6/uL (3.93-5.22); RDW 12.6 % (11.7-14.6); RDW-SD 43.9 fL; WBC 5.35 10^3/uL (4.4-10.8)
[2024-11-21 20:19] LABS: ESR 6 mm/hr (0-30)
[2024-11-21 20:30] LABS: ALT 19 U/L (14-59); AST 14 U/L (15-37); Albumin 4.0 g/dL (3.4-5.0); Alkaline Phosphatase 77 U/L (46-116); Anion Gap 8.9 mmol/L (3-11); BUN 29 mg/dL (7-18); Bilirubin, Total 0.3 mg/dL (0.2-1.0); CO2 30.1 mmol/L (21.0-32.0); Calcium 9.2 mg/dL (8.5-10.1); Chloride 105 mmol/L (98-107); Estimated GFR 75.37 (mL/min/1.73m2); Glucose 126 mg/dL (74-106); Potassium 3.9 mmol/L (3.5-5.1); Sodium 144 mmol/L (136-145); Total Protein 7.0 g/dL (6.4-8.2)
[2024-11-21] MEDS: MAGNESIUM SULFATE 2 GM/50 ML BAG IVINF (20:31)
[2024-11-21] MEDS: Normal Saline 1,000 ML 1000 ML IV (20:31)
[2024-11-21] MEDS: diphenhydrAMINE 50 MG/ML VIAL 12.5 MG IVP (20:35)
[2024-11-21 20:39] LABS: C-Reactive Protein < 0.50 mg/dL (<or=0.5)
[2024-11-21] MEDS: Ketorolac 15 MG/ML VIAL 10 MG IVP (21:00)
[2024-11-21] MEDS: Prochlorperazine 10 MG/2 ML VIAL IVP (21:00)
[2024-11-21] MEDS: ACETAMINOPHEN 1,000 MG/100 ML BAG 400 MG IVPB (21:01)
[2024-11-21] MEDS: Dexamethasone 10 MG/ML VIAL IVP (21:38)
[2024-11-21] MEDS: SUMAtriptan 6 MG/0.5 ML VIAL SC (21:41)
== END 2024-11-21 22:10 | disposition home or self-care (01) ==
PROVIDERS: Emergency Provider Emergency Medicine; PCP Family Medicine
DX: G43.901 Migraine, unspecified, not intractable, with status migrainosus (principal); I10 Essential (primary) hypertension; E78.5 Hyperlipidemia, unspecified; E03.9 Hypothyroidism, unspecified; Z87.891 Personal history of nicotine dependence
CPT/HCPCS: 80053; 85652; 96365; 96367; 96372; 96375; 99284; 70450; 85025; 86140; J0131; J0780; J1100; J1200; J1885; J3030; J3475

== ENCOUNTER 2024-11-29 10:03 | Emergency (ER) | payer MEDICARE, SELFPAY ==
[2024-11-29 10:08] VITALS: BP 143/77; PULSE 84; RESP 16; TEMP 36.8; O2SAT 98
--- NOTE | 2024-11-29 10:19 | W.ED.GENAD ---
Discharge Plan Disposition Patient Disposition: Home Condition: Stable Discharge Details Clinical Impression: Injury of left index finger Primary Care Provider: Leeanne Schultz V ED Provider: Edmar Gong Home Meds and New Rx's Prescriptions: Continued simvastatin 10 mg tablet 10 mg PO DAILY albuterol sulfate 90 mcg/actuation HFA aerosol inhaler 2 puff inhalation Q6H PRN albuterol sulfate 2.5 mg /3 mL (0.083 %) solution for nebulization 2.5 mg inhalation Q4H PRN clonazepam 1 mg tablet 1 mg PO DAILY PRN estradiol 0.01 % (0.1 mg/gram) cream 1 g vaginal QHS Rx Instructions: for 14 days metronidazole 0.75 % cream 1 applic topical DAILY niacinamide 500 mg capsule 500 mg PO BID pantoprazole 40 mg tablet,delayed release (DR/EC) 40 mg PO DAILY PRN bupropion HCl [Wellbutrin XL] 300 mg tablet extended release 24 hr 300 mg PO QAM trazodone 50 mg tablet 50 mg PO DAILY vitamin B complex Tablet 1 tab PO DAILY ketoconazole 2 % cream 1 applic topical DAILY 90 Days Qty: 60 6RF Rx Instructions: Apply to toenails once daily amlodipine 5 MG tablet 2.5 mg PO DAILY levothyroxine [Euthyrox] 137 mcg tablet 137 mcg PO DAILY Patient Comments: TAKE 1 TABLET BY MOUTH ONCE DAILY clonazepam [Klonopin] 0.5 mg tablet 0.5 mg PO DAILY PRNQty: 2 0RF tretinoin 0.05 % cream 1 applic TOPICAL Q2D PRN citalopram 40 mg tablet 40 mg PO DAILY prednisone 20 mg tablet 20 mg PO DAILY PRN Discharge Instructions Additional Instructions: The wound should heal with time. If you have any signs of infection such as burning redness from the wound or yellow-white discharge return to the emergency department for reevaluation. HPI General Mode of arrival: ambulatory. Date/Time Provider Initiated Documentation: 11/29/24 10:05. Limitations to Documentation: no limitations. Information obtained by: patient. History of Present Illness 79 year old F presents to the emergency department with the chief complaint of left index finger injury, described as mild, Quality is described as aching, and is localized to the left and upper extremity. Patient reports no radiation. Patient started experiencing this hour(s) (2) and it has been constant. No relieving factors improve symptom(s), No exacerbating factors reported . Patient notes no other symptoms.. Patient did receive the following treatments prior to arrival, none Related Data Home Medications ?Medication ?Instructions ?Recorded ?Confirmed amlodipine 5 mg tablet 2.5 mg PO DAILY 01/22/13 11/21/24 levothyroxine 137 mcg tablet 137 mcg PO DAILY 11/11/20 11/21/24 (Euthyrox) vitamin B complex 1 tab PO DAILY 11/10/21 11/21/24 clonazepam 0.5 mg tablet (Klonopin) 0.5 mg PO DAILY PRN #2 tabs 12/01/22 11/21/24 simvastatin 10 mg tablet 10 mg PO DAILY 10/16/23 11/21/24 ketoconazole 2 % topical cream 1 applic topical DAILY 3 months 04/09/24 11/21/24 #60 grams albuterol sulfate 2.5 mg/3 mL 2.5 mg inhalation Q4H PRN 08/28/24 11/21/24 (0.083 %) solution for nebulization albuterol sulfate 90 mcg/actuation 2 puff inhalation Q6H PRN 08/28/24 11/21/24 aerosol inhaler bupropion HCl 300 mg 24 hr tablet, 300 mg PO QAM 08/28/24 11/21/24 extended release (Wellbutrin XL) clonazepam 1 mg tablet 1 mg PO DAILY PRN 08/28/24 11/21/24 estradiol 0.01% (0.1 mg/gram) 1 g vaginal QHS 08/28/24 11/21/24 vaginal cream metronidazole 0.75 % topical cream 1 applic topical DAILY 08/28/24 11/21/24 niacinamide 500 mg capsule 500 mg PO BID 08/28/24 11/21/24 pantoprazole 40 mg tablet,delayed 40 mg PO DAILY PRN 08/28/24 11/21/24 release trazodone 50 mg tablet 50 mg PO DAILY 09/09/24 11/21/24 citalopram 40 mg tablet 40 mg PO DAILY 11/21/24 11/21/24 prednisone 20 mg tablet 20 mg PO DAILY PRN 11/21/24 11/21/24 tretinoin 0.05 % topical cream 1 applic topical Q2D PRN 11/21/24 11/21/24 Previous Rx's ?Medication ?Instructions ?Recorded clonazepam 0.5 mg tablet (Klonopin) 0.5 mg PO DAILY PRN #2 tabs 12/01/22 ketoconazole 2 % topical cream 1 applic topical DAILY 3 months 04/09/24 #60 grams Allergies Allergy/AdvReac Type Severity Reaction Status Date / Time shrimp Allergy Severe Anaphylaxis Verified 11/29/24 10:11 iopamidol AdvReac Intermediate Anaphylaxsi Unverified 11/29/24 10:11 s montelukast sodium (From AdvReac Intermediate Headache Unverified 11/29/24 10:11 Singulair) morphine AdvReac Intermediate Cardiac Unverified 11/29/24 10:11 Dysrythmia nitrofurazone AdvReac Mild Nausea Unverified 11/29/24 10:11 General Stated Complaint: Laceration MARYA: 4 Review of Systems All systems reviewed & are unremarkable except as noted in HPI and below Constitutional Constitutional: Denies chills, Denies fever(s) and Denies weakness Gastrointestinal Gastrointestinal: Denies vomiting Neurologic Neurologic: Denies weakness Exam Const General: no acute distress Orientation: alert [facility] Head: normal to inspection Ears: external ears normal General nose exam: external nose normal Mouth: moist mucous membranes Eyes General: appearance normal, both eyes and all related structures Neck Neck: normal visual inspection Resp Effort & Inspection: normal respiratory effort and able to speak in complete sentences Cardio Rate: regular rate Neuro General: patient alert and patient oriented x3 Extrem General: full ROM and capillary refill normal Psych Mental Status: mental status grossly normal Course Vital Signs Vital signs: Vital Signs Temperature 36.8 C 11/29/24 10:08 Pulse 84 11/29/24 10:08 Respiratory Rate 16 11/29/24 10:08 Blood Pressure 143/77 H 11/29/24 10:08 Pulse Oximetry 98 11/29/24 10:08 Temperature 36.8 C 11/29/24 10:08 Temperature Source Oral 11/29/24 10:08 Pulse 84 11/29/24 10:08 Respiratory Rate 16 11/29/24 10:08 Blood Pressure 143/77 H 11/29/24 10:08 Blood Pressure Position Sitting 11/29/24 10:08 Pulse Oximetry 98 11/29/24 10:08 Oxygen Delivery Method Room Air 11/29/24 10:08 Oxygen Flow Rate 0 11/29/24 10:08 Pain Level 0 11/29/24 10:08 Medical Decision Making 79-year-old female comes in after she was cutting around with a knife when it slipped and she cut her left distal index finger. She did not fall or sustain other injuries. She says she has had a tetanus shot about 2 years ago. She has a very superficial laceration to the posterior distal left index finger just medial to the nail. She has full range of motion of the finger with intact sensation and cap refill. Wound was under [place] for the patient and appears clean. Given superficial wound as I do not feel to be closed with sutures. I did place some skin adhesive on it. If any imaging is indicated given the superficial nature of the wound. Advised she does not follow-up with anyone for this but if she has signs of infection return to the emergency department for reevaluation. Differential Diagnosis Differential Diagnosis: Skin tear, laceration PFSH All Active Problems (Updated 11/29/24 @ 10:22 by Edmar Gong MD) Injury of left index finger (Acute) Migraine with status migrainosus (Acute) Lumbar radiculitis (Acute) Porokeratosis (Acute) Nail dystrophy (Acute) Onychomycosis (Acute) COVID (Acute) Cervical radicular pain (Acute) Asthma (Chronic) Chest pain (Acute) Conductive hearing loss, external ear (Acute) Perforation of colon as colonoscopy complication (Acute) Medical History Traumatic brain injury Bilateral thumb pain Degenerative cervical disc Hyperlipidemia Hypertension IBS (irritable bowel syndrome) Menopausal state History of pneumonia Bilateral cataracts Synovial cyst Pneumonitis Abnormal chest CT Pain in right arm Female bladder prolapse Constipation Change in bowel movement Colon perforation Oral candidiasis Anemia Left leg pain Chest discomfort Abdominal pain, epigastric Hyperkalemia Tenosynovitis of finger Neck pain Abnormal finding on EKG Facial paresthesia Malignant melanoma Hypothyroid Fibromyalgia Depression Anxiety Hearing loss History of IBS Insomnia Female bladder prolapse Surgical History History of bladder surgery H/O: hysterectomy H/O colonoscopy Replacement of total knee joint right Abdominal hysterectomy Colonoscopy - MAC Bladder Surgery Arthroscopy, Shoulder right Family History Mother Cancer Pancreatic Father Sarcoma of back Stroke Sister Cancer lung Other Constipation Social History (Updated 09/09/24 @ 08:50 by Betty Alejandro RN) Smoking/Tobacco Use Status: Former Tobacco Use Quit Date: 05/06/69 Smoking risk assessment performed?: Yes Alcohol Intake: former Drug use: Never Substance use type: does not use Household members: spouse Housing: house Do you feel safe at home: Yes Do you feel safe in your relationship?: Yes
== END 2024-11-29 10:36 | disposition home or self-care (01) ==
PROVIDERS: Emergency Provider Emergency Medicine; PCP Family Medicine
DX: S61.311A Laceration without foreign body of left index finger with damage to nail, initial encounter (principal); W26.8XXA Contact with other sharp object(s), not elsewhere classified, initial encounter
CPT/HCPCS: 99283 ×2

== ENCOUNTER → 2025-03-15 08:18 | Outpatient (CLI) | payer MEDICARE, SELFPAY ==
--- NOTE | 2025-03-15 14:25 | DI.MAMMO_ITS ---
Exam(s) MAMMO SCREENING EXAM: MAMMO SCREENING CLINICAL HISTORY: SCREENING, Z12.31. TECHNIQUE: Bilateral full field digital CC and MLO mammographic images were obtained with 3D tomosynthesis and utilizing computer aided detection (CAD). COMPARISON: Prior mammograms were reviewed. FINDINGS: There has been no significant change in the appearance and distribution of the fibroglandular tissue. There are no new spiculated masses nor malignant appearing microcalcification groups. There is no significant architectural distortion nor skin thickening-retraction. IMPRESSION: No radiographic evidence of malignancy. BI-RADS Category 1 - Negative Breast Density - Category B - There are scattered areas of fibroglandular density. Breast density Category C or D implies that the patient has dense breast tissue. Dense breast tissue can make it harder to find cancer on a mammogram. Dense breast tissue is also associated with an increased risk of breast cancer. This information about the result of the mammogram report was provided to the patient to raise their awareness. Use this report when you speak with the patient about their risks for breast cancer, which includes their family history. At that time, you may recommend additional screening tests (Ultrasound or MRI) as these tests may add significant information. A negative radiographic report should not delay biopsy if a dominant or clinically suspicious mass is present. Up to ten percent of cancers are not identified on mammography. A negative report may reinforce clinical impression. Adenosis and dense breasts may obscure an underlying neoplasm. False positive reports average 6 to 10%. Patient will receive a letter notifying them of these results.
== END ==
PROVIDERS: PCP Family Medicine; Visit Provider Family Medicine
DX: Z12.31 Encounter for screening mammogram for malignant neoplasm of breast (principal)
CPT/HCPCS: 77063; 77067